=== PATIENT | female | born 1965 | race Caucasian/White ===

== ENCOUNTER 2017-03-10 14:51 | Inpatient (IN) | payer BC ==
[~2017-03-10] VITALS: Ht 170.2 cm; Wt 129.8 kg
[~2017-03-10 14:51] MED LIST: AMLO1TAB97 PO; AMLO5TAB2 PO; ASPI-482 PO; ATOR40TA59 PO; BIOT25006 PO; BUME1TAB PO; CHOL200044 PO; CIPR500T PO; FERR-26 PO; FURO40TA4 PO; GLIM4TAB2 PO; HYDR-2869 PO; IRON150C15 PO; LOSA100T6 PO; METO50TA2 PO; NITR100C6 PO; ONDA4TAB10 SL; POTA20TA4 PO; SIMV40TA3 PO; SITA1TBM7 PO; TRAM50TA PO; TRIA1CAP3 PO
[2017-03-10 15:40] VITALS: BP 188/86
[2017-03-10] MEDS ORDERED: traMADol 50 MG TABLET PO PRN (16:00)
[2017-03-10] MEDS ORDERED: DEXTROSE 50% 25 GM / 50ML DISP.SYRIN. IV PRN (16:00)
--- NOTE | 2017-03-10 16:15 | PDOC2 ---
PAUL MARTIN CPHT 03/10/17 1615: CARDIAC CONSULT DATE OF CONSULT Date of Consult DATE: 03/10/17 TIME: 16:08 REASON FOR CONSULT Reason for Consult: Brittney REFERRING PHYSICIAN Referring Physician: Dr. Colon SOURCE Source: Chart review, Patient HISTORY OF PRESENT ILLNESS HISTORY OF PRESENT ILLNESS This is a 51 yo female, with a h/o uncontrolled hypertension and CKD, who was a direct admit from Dr. Colon's office secondary to significant fluid retention. Patient reports this has been ongoing since the summer; has progressively worsened. Much worse the last couple of weeks. Denies any SOA, orthopnea, dizziness, diaphoresis, chest pain, or nausea/vomiting. Reports compliance with medications. Reports high salt diet recently as father has been in the hospital and she has been grabbing quick meals. Primary copy camera operator is Dr. Kumar with [facility]. Follows closely with Dr. Soto on an outpatient basis. Was previously on Bumex, which was discontinued due to worsening renal function. Presently on metolazone 5mg daily and Lasix 80mg in the am and 40mg in the pm. PAST MEDICAL HISTORY Past Medical History Cardiovascular: HTN, Hyperlipidemia, Diastolic CHF Pulmonary: No pertinent hx CENTRAL NERVOUS SYSTEM: Other (denies) GI: No pertinent hx, Other (obesity) Heme/Onc: Anemia NOS Hepatobiliary: No pertinent hx Psych: No pertinent hx Musculoskeletal: Other (denies) Rheumatologic: No pertinent hx Infectious disease: No pertinent hx ENT: No pertinent hx Renal/: Chronic renal insuff, UTI, Other (menorrhagia s/p hysterectomy - Apr 2015) Endocrine: Diabetes (X 15-16 years) Dermatology: No pertinent hx PAST SURGICAL HISTORY Past Surgical History: Hysterectomy FAMILY HISTORY Family History Coronary Artery Disease, Diabetes, High Cholesterol, Hypertension SOCIAL HISTORY Social History Smoke: No ALCOHOL: none Drugs: None Lives: with Family () ALLERGIES ALLERGIES: Coded Allergies: Penicillins (Verified Allergy, Intermediate, 09/14/16) Sulfa (Sulfonamide Antibiotics) (Verified Allergy, Intermediate, 09/14/16) ROS Review of System 14 point ROS conducted with pertinent positives noted above in HPI. PHYSICAL EXAM PHYSICAL EXAM General: Alert, Oriented X3, Cooperative, No acute distress HEENT: Atraumatic, PERRLA Lungs: Clear to auscultation, Normal air movement Heart: Regular rate, Normal S1, Normal S2, No murmurs, Other (no carotid bruits ) Abdomen: Normal bowel sounds, Soft, No tenderness, Other (truncal obesity) Extremities: Normal pulses, Other anasarca Skin: No rashes Neuro: Normal speech Psych/Mental Status: Mental status NL, Mood NL MUSCULOSKELETAL: No deformity VITALS VITALS Vital Signs Date Time Temp Pulse Resp B/P (MAP) Pulse Ox O2 Delivery O2 Flow Rate FiO2 03/10/17 15:40 97.8 83 20 188/86 (120) 97 Room Air 97.8 ECHOCARDIOGRAM ECHOCARDIOGRAM <Conclusion> Left ventricle systolic function is normal. The Ejection Fraction is 50-55%. There is normal LV segmental wall motion. No significant valvular disease or pulmonary hypertension Normal diastolic function. DATE: 09/14/16 1231 ASSESSMENT/PLAN ASSESSMENT/PLAN 1. Generalized anasarca; recent echo showed LVEF of 50-55% and normal diastolic function 2. Malignant HTN, POA 3. DM, II with diabetic neuropathy 4. CKD 5. Hyperlipidemia Recommendation Check routine labs Obtain CXR Add scheduled hydralazine for BP control Diuresis as per nephrology. Accurate I and O 2Gm Na dietary restriction 1500 cc FR Further recommendation pending labs and other diagnostics Problems: EUNICE NOLAN MD 03/11/17 0918: CARDIAC CONSULT ALLERGIES ALLERGIES: Coded Allergies: Penicillins (Verified Allergy, Intermediate, 09/14/16) Sulfa (Sulfonamide Antibiotics) (Verified Allergy, Intermediate, 09/14/16) ASSESSMENT/PLAN ASSESSMENT/PLAN Patient seen and examined 03/10/17 (late entry). Agree with INFORMATION ASSURANCE MANAGER's assessment and plan. Patient with generalized anasarca and acute on chronic diastolic heart failure Recent 2-D echo showed normal LV systolic function. Consider albumin infusions with diuretics due to hypoalbuminemia. Nephrology following. Titrate oral anti-hypertensives for better blood pressure control. Thank you for your consultation. Problems: PAUL MARTIN APRN Mar 10, 2017 16:15 EUNICE NOLAN MD Mar 11, 2017 09:18
[2017-03-10] MEDS ORDERED: METO-269 PO (16:17)
[2017-03-10] MEDS ORDERED: CLON0.1T PO (16:17)
[2017-03-10] MEDS ORDERED: INSU200I SQ (16:20)
[2017-03-10] MEDS ORDERED: INSU300I SQ (16:20)
--- NOTE | 2017-03-10 16:23 | EKG ---
[facility] [address] [place] [address] Test Date: 2017-03-10 Test Time: 16:17:11 Pat Name: DENNIS EATON Department: Room: 258 1 Gender: F Customer Counter Representative: MELINA : 1965 Requested By: YARELIS FONTENOT Order Number: [id number] Reading MD: Angel Rouse MD Measurements Intervals [place] Rate: 80 P: -36 TN: 154 QRS: -3 QRSD: 88 T: 30 QT: 376 QTc: 437 Interpretive Statements SINUS RHYTHM Electronically Signed On 03-11-2017 16:10:18 TRANSFORMER ASSEMBLER by Angel Rouse MD
[2017-03-10] MEDS: LOSARTAN POTASSIUM 50 MG TABLET. PO SCH (16:30)
[2017-03-10] MEDS: amLODIPine BESYLATE 5 MG TABLET PO SCH (16:30)
[2017-03-10] MEDS: POTASSIUM CHLORIDE 20 MEQ TABLET.ER. PO SCH (16:30)
[2017-03-10 16:32] LABS: BASO # 0.1 x10^3/uL (0.0-0.2); BASO % 1 % (0-3); EOS % 3 % (0-3); HEMATOCRIT 23.5 % (36.0-47.0); HEMOGLOBIN 8.2 g/dL (12.0-15.5); LYMPH # 1.8 x10^3/uL (1.0-4.8); LYMPH % 17 % (24-48); MEAN CORPUSCULAR HEMOGLOBIN 29 pg (25-35); MEAN CORPUSCULAR HGB CONC 35 g/dL (31-37); MEAN CORPUSCULAR VOLUME 84 fL (79-100); MONO % 7 % (0-9); NEUT % 73 % (31-73); PLATELET COUNT 296 x10^3/uL (140-400); RED BLOOD COUNT 2.78 x10^6/uL (3.50-5.40); RED CELL DISTRIBUTION WIDTH 13.5 % (11.5-14.5); WHITE BLOOD COUNT 10.5 x10^3/uL (4.0-11.0)
--- NOTE | 2017-03-10 16:57 | RAD ---
Bilateral lower extremity venous ultrasound, 03/10/2017: History: Leg swelling Duplex evaluation of the deep veins in the lower extremities was performed including grayscale, color-flow and spectral Doppler analysis. The femoral and popliteal veins demonstrate normal compressibility and normal responses to distal augmentation maneuvers. Color imaging of those vessels shows no evidence of intraluminal clot. The visualized deep veins in both calves are patent. Streaky subcutaneous edema is present in both lower legs. IMPRESSION: There is no sonographic evidence of deep vein thrombosis in either lower extremity.
[2017-03-10] MEDS: METOPROLOL SUCC 24HR ER 50 MG TAB.ER.24H. PO SCH (17:00)
[2017-03-10] MEDS ORDERED: IRON POLYSACCHARIDE COMPLEX 150 MG CAPSULE PO SCH (17:00)
[2017-03-10] MEDS: cloNIDine HCL 0.1 MG TABLET PO SCH ×2 (17:06→21:27)
[2017-03-10] MEDS: INSULIN ASPART 300 UNITS/3 ML INSULN.PEN SQ SCH ×2 (17:09→17:14)
[2017-03-10] MEDS ORDERED: FURO80TA3 PO (17:18)
[2017-03-10] MEDS ORDERED: FURO40TA4 PO (17:18)
[2017-03-10] MEDS ORDERED: METO2.5T PO (17:18)
[2017-03-10 17:22] LABS: ALBUMIN 2.8 g/dL (3.4-5.0); ALBUMIN/GLOBULIN RATIO 0.7 (1.0-1.7); CALCIUM 9.2 mg/dL (8.5-10.1); CREATININE 2.6 mg/dL (0.6-1.0); GFR 19.3; POTASSIUM 4.7 mmol/L (3.5-5.1); TOTAL BILIRUBIN 0.6 mg/dL (0.2-1.0)
[2017-03-10] MEDS: FUROSEMIDE 40 MG/4 ML VIAL. IVP SCH (17:22)
[2017-03-10 18:30] LABS: BILIRUBIN,URINE NEGATIVE (NEG); GLUCOSE,URINE 500 mg/dL (NEG); NITRITE,URINE NEGATIVE (NEG); PROTEIN,URINE >=300 mg/dL (NEG-TRACE); UROBILINOGEN,URINE 0.2 mg/dL (0.2 mg/dL)
[2017-03-10 18:42] LABS: BACTERIA,URINE MOD /HPF (0-FEW); RBC,URINE 0 /HPF (0-2); SQUAMOUS EPITHELIAL CELL,UR MOD /LPF
[2017-03-10 19:45] VITALS: BP 163/70
[2017-03-10] MEDS ORDERED: METOPROLOL TART IMMED RELEASE 50 MG TABLET. PO SCH (21:00)
[2017-03-10] MEDS ORDERED: INSULIN DETEMIR 300 UNITS/3 ML INSULN.PEN. SQ SCH ×2 (21:00)
[2017-03-10] MEDS: ATORVASTATIN CALCIUM 40 MG TABLET. PO SCH (21:27)
[2017-03-10] MEDS: INSULIN DETEMIR 300 UNITS/3 ML INSULN.PEN. SQ SCH (21:31)
[2017-03-10 22:50] VITALS: BP 135/62
[2017-03-11 03:15] VITALS: BP 129/61
[2017-03-11 07:00] VITALS: BP 143/58
[2017-03-11 07:24] LABS: BASO % 0 % (0-3); EOS % 4 % (0-3); HEMATOCRIT 22.9 % (36.0-47.0); HEMOGLOBIN 7.8 g/dL (12.0-15.5); LYMPH # 1.8 x10^3/uL (1.0-4.8); LYMPH % 19 % (24-48); MEAN CORPUSCULAR HEMOGLOBIN 29 pg (25-35); MEAN CORPUSCULAR HGB CONC 34 g/dL (31-37); MEAN CORPUSCULAR VOLUME 85 fL (79-100); MONO % 7 % (0-9); NEUT % 70 % (31-73); PLATELET COUNT 270 x10^3/uL (140-400); RED BLOOD COUNT 2.69 x10^6/uL (3.50-5.40); RED CELL DISTRIBUTION WIDTH 13.4 % (11.5-14.5); WHITE BLOOD COUNT 9.3 x10^3/uL (4.0-11.0)
[2017-03-11 07:32] LABS: CALCIUM 8.9 mg/dL (8.5-10.1); CREATININE 2.5 mg/dL (0.6-1.0); GFR 20.2; POTASSIUM 4.8 mmol/L (3.5-5.1)
[2017-03-11 07:36] LABS: CHOLESTEROL/HDL RATIO 4.9
[2017-03-11] MEDS ORDERED: FERROUS SULFATE 325 MG TABLET. PO SCH (08:00)
--- NOTE | 2017-03-11 08:01 | RAD ---
Chest radiograph Two Views 03/10/2017 Clinical indication: CHF, shortness of breath Comparison: Chest 09/13/2016 Findings: Enlargement of the cardiac silhouette with mild pulmonary venous congestion. There is blunting of the left costophrenic angle. No pneumothorax or focal consolidation Impression: 1. Findings suggestive of mild CHF with cardiomegaly and mild pulmonary venous congestion. 2. Blunting of the left costophrenic angle which may be due to pleural thickening or trace pleural fluid.
[2017-03-11] MEDS ORDERED: BIOTIN 2500 MCG PO SCH (09:00)
[2017-03-11] MEDS: amLODIPine BESYLATE 5 MG TABLET PO SCH (09:11)
[2017-03-11] MEDS: METOPROLOL SUCC 24HR ER 50 MG TAB.ER.24H. PO SCH (09:11)
[2017-03-11] MEDS: CHOLECALCIFEROL (VITAMIN D3) 1,000 UNIT TABLET PO SCH (09:12)
[2017-03-11] MEDS: FERROUS SULFATE 325 MG TABLET. PO SCH (09:12)
[2017-03-11] MEDS: cloNIDine HCL 0.1 MG TABLET PO SCH ×3 (09:12→20:24)
[2017-03-11] MEDS: LOSARTAN POTASSIUM 50 MG TABLET. PO SCH (09:12)
[2017-03-11] MEDS: POTASSIUM CHLORIDE 20 MEQ TABLET.ER. PO SCH (09:12)
[2017-03-11] MEDS: FUROSEMIDE 40 MG/4 ML VIAL. IVP SCH ×2 (09:13→14:23)
[2017-03-11] MEDS: INSULIN ASPART 300 UNITS/3 ML INSULN.PEN SQ SCH ×6 (09:20→18:07)
--- NOTE | 2017-03-11 09:56 | PDOC ---
Provider Note Provider Note Pt seen.H&P dictated. #[id number] YARELIS FONTENOT MD Mar 11, 2017 09:56
[2017-03-11] MEDS ORDERED: IRON SUCROSE COMPLEX 200 MG in IV NORMAL SALINE 100ML 100 ML IV ONE (10:00)
[2017-03-11 10:17] LABS: % SAT IRON 25 % (15-34); IRON,SERUM 53 ug/dL (50-170)
--- NOTE | 2017-03-11 10:27 | HP ---
ADMIT DATE: 03/10/2017 PATIENT LOCATION: 258. REASON FOR ADMISSION TO THE HOSPITAL: Anasarca, shortness of breath and swelling in the lower extremities. HISTORY OF PRESENT ILLNESS: The patient is a 51-year-old female, patient known to me. She has a history of diabetes and nephrotic syndrome. She was admitted to the hospital 6 months ago. At that time, she had a complete workup, including ultrasound of the kidneys, echocardiogram and she also has iron-deficiency anemia. She was doing relatively well and she has noticed swelling in lower extremities, gained 20 pounds. She was short of breath and was admitted to the hospital for aggressive diuresis. PAST MEDICAL HISTORY: She has history of diabetes mellitus type 2, hypertension, hyperlipidemia and diastolic heart failure. Echo shows a good left ventricular function. PAST SURGICAL HISTORY: She had a heavy menstrual in the past and had hysterectomy within last 1 year. ALLERGIES: PENICILLIN AND SULFA, MODERATE REACTION WITH HIVES. SOCIAL HISTORY: No history of smoking, alcohol or drug abuse. FAMILY HISTORY: Positive for diabetes and heart disease in the father. REVIEW OF SYMPTOMS: Complains of shortness of breath, weight gain, swelling of the lower extremities and short of breath. MEDICATIONS: Amlodipine 5 mg daily, atorvastatin 40 mg daily, vitamin D 2000 daily, clonidine 0.1 three times daily, iron 325 daily, losartan 100 mg daily, metoprolol 50 mg daily and potassium 20 mEq daily. She was on Lasix 40 mg 3 a day, Zofran for nausea and she was recommended Zaroxolyn, but she has not started yet, problems with insurance, she could not get her medications. Sugars were high and she was started on insulin recently. PHYSICAL EXAMINATION: HEENT: On examination, head is atraumatic. Pupils are equal. Oral cavity, no congestion. NECK: Supple. Thyroid not enlarged. JVD slightly elevated. CHEST: Symmetrical. CARDIOVASCULAR: S1, S2. No murmurs. LUNGS: Few crackles at one-third at the bases. ABDOMEN: Soft, obese. No mass palpable. EXTERNAL GENITALIA: No Martinez. RECTAL: Deferred. EXTREMITIES: With 2-3+ edema all the way from the ankles up to the thighs. NEUROLOGICAL EXAMINATION: Cranial nerves intact. Power 5/5 in all extremities. LABORATORY DATA: Shows a white count of 10, hemoglobin 8.2 and platelets 296,000. Electrolytes show sodium 137, potassium 4.7, chloride 104, bicarb 22, BUN 39, creatinine 2.6 and glucose 329. LFTs were normal. TSH 1.5. Cholesterol 191, LDL 123, HDL 39. Urine shows protein 300, glucose 500, negative nitrites and esterase and 1-4 wbcs. Chest x-ray shows mild CHF. Doppler of lower extremities negative for DVT. FINAL IMPRESSION: 1. Anasarca. 2. Nephrotic syndrome. 3. Diastolic heart failure. 4. Anemia of chronic disease. 5. Chronic kidney disease stage 4. 6. Type 2 diabetes, requiring insulin now. 7. Hypertension. 8. Hyperlipidemia. PLAN: Plan at this time was admit to the hospital, aggressive dialysis with IV Lasix. Nephrology consult, also Cardiology will see, may be an echo to see how the cardiac function is doing and also IV infusion iron and see how she does. DVT prevention with SCDs. YARELIS FONTENOT MD DR: DAGOBERTO/jamel JOB#: [id number] / [id number]
[2017-03-11 11:00] VITALS: BP 167/77
--- NOTE | 2017-03-11 11:27 | PDOC2 ---
CONSULT Date of Consult Date of Consult DATE: 03/11/17 TIME: 11:20 Reason for Consult Reason for Consult: RENAL FAILURE Referring Physician Referring Physician: CORIE Identification/Chief Complaint Chief Complaint SOB AND LE SWELLING AND WT GAIN Problems: Source Source: Chart review, Patient History of Present Illness Reason for Visit: THIS IS A 51 YR OLD HERE WITH WT GAIN AND LE EDEMA AND SOB. NOTED TO HAVE CHF/ PULMONARY VASCULAR CONGESTION. PER PT ABOUT A 20LB WEIGHT GAIN SINCE LAST MONTH. SHE WAS ON BUMEX AND LASIX AND WAS ASKED TO STOP HER BUMEX. LATER ZAROXOLYN WAS ADDED BUT THIS IS NOT EASILY COVERED BY HER INSURANCE. HX NOTABLE FOR CKD STAGE 2 WITH A CR OF ABOUT 2.5. SHE HAD SEVERE NEPHROTIC SYNDROME IN AUGUST THIS YEAR WITH ABOUT 9.5 GM OF PROTEIN/24 HR. LAST MONTH THIS HAD IMPROVED TO 2.5GM/DAY AFTER SHE WAS STARTED ON LOSARTAN. CKD DUE TO DM II AND HTN. SHE IS ALSO NOTED TO HAVE ANEMIA WITH A HGB OF 7.8 Past Medical History Cardiovascular: HTN, Hyperlipidemia Pulmonary: No pertinent hx CENTRAL NERVOUS SYSTEM: Other GI: No pertinent hx, Other Heme/Onc: Anemia NOS Hepatobiliary: No pertinent hx Psych: No pertinent hx Musculoskeletal: Other Rheumatologic: No pertinent hx Infectious disease: No pertinent hx Renal/: Chronic renal insuff, UTI, Other Endocrine: Diabetes Past Surgical History Past Surgical History: Hysterectomy Family History Family History: Coronary Artery Disease, Diabetes, High Cholestrol, Hypertension Social History ALCOHOL: none Drugs: None Lives: with Family Current Medications Current Medications Current Medications Insulin Aspart (NovoLOG) 0-7 UNITS TIDWMEALS SQ Last administered on 09:21; Start 03/10/17 at 17:00 Dextrose (Dextrose 50%-Water Syringe) 12.5 gm PRN Q15MIN PRN IV SEE COMMENTS; Start 03/10/17 at 16:00 Furosemide (Lasix) 40 mg BID92 IVP Last administered on 03/11/17 09:13; Start 03/10/17 at 16:00 Amlodipine Besylate (Norvasc) 5 mg DAILY PO Last administered on 03/11/17 09: 11; Start 03/10/17 at 16:30 Atorvastatin Calcium (Lipitor) 40 mg QHS PO Last administered on 03/10/17 21: 27; Start 03/10/17 at 21:00 Ferrous Sulfate (Feosol) 325 mg DAILYWBKFT PO ; Start 03/11/17 at 08:00; Status UNV Hydralazine HCl (Apresoline) 50 mg BID PO Last administered on 03/11/17 09:12 ; Start 03/10/17 at 21:00 Polysaccharide Iron Complex (Niferex 150) 150 mg BIDWMEALS PO ; Start 03/10/17 at 17:00; Stop 03/10/17 at 17:20; Status DC Metoprolol Tartrate (Lopressor) 50 mg BID PO ; Start 03/10/17 at 21:00; Status Cancel Potassium Chloride (Klor-Con) 20 meq DAILYWBKFT PO Last administered on 09:12; Start 03/10/17 at 16:30 Tramadol HCl (Ultram) 50 mg PRN Q4HRS PRN PO PAIN; Start 03/10/17 at 16:00 Non-Formulary Medication 2,500 mcg DAILY PO ; Start 03/11/17 at 09:00; Status UNV Vitamin D (Vitamin D3) 2,000 unit DAILY PO Last administered on 03/11/17 09: 12; Start 03/11/17 at 09:00 Losartan Potassium (Cozaar) 100 mg DAILY PO Last administered on 03/11/17 09: 12; Start 03/10/17 at 16:30 Insulin Aspart (NovoLOG) 10 units TIDAC SQ Last administered on 03/11/17 09: 20; Start 03/10/17 at 16:30 Insulin Detemir (Levemir) 10 units QHS SQ ; Start 03/10/17 at 21:00; Stop at 21:00; Status DC Clonidine HCl (Catapres) 0.1 mg TID PO Last administered on 03/11/17 09:12; Start 03/10/17 at 17:00 Metoprolol Succinate (Toprol Xl) 50 mg DAILY PO Last administered on 09:11; Start 03/10/17 at 17:00 Ferrous Sulfate (Feosol) 325 mg DAILYWBKFT PO Last administered on 03/11/17 09:12; Start 03/11/17 at 08:00 Insulin Detemir (Levemir) 20 units QHS SQ ; Start 03/10/17 at 21:00; Stop at 21:00; Status DC Insulin Detemir (Levemir) 10 units QHS SQ Last administered on 03/10/17t 21:31 ; Start 03/10/17 at 21:00 Iron Sucrose 200 mg/Sodium Chloride 110 ml @ 55 mls/hr 1X ONCE IV ; Start at 10:00; Stop 03/11/17 at 10:07; Status DC Iron Sucrose 200 mg/Sodium Chloride 110 ml @ 55 mls/hr 1X ONCE IV ; Start at 10:00; Stop 03/12/17 at 10:00; Status DC Darbepoetin Aman (Aranesp) 100 mcg 1X ONCE SQ ; Start 03/11/17 at 21:00; Stop 03/11/17 at 21:01 Iron Sucrose 200 mg/Miscellaneous 10 ml @ 20 mls/hr Q24H IV ; Start 03/11/17 at 10:00; Stop 03/12/17 at 10:29 Active Scripts Active Klor-Con M20 (Potassium Chloride) 20 Meq Tab.er.prt 20 Meq PO DAILYWBKFT 30 Days Reported Furosemide 40 Mg Tablet 1 Tab PO DAILYWSUP Furosemide 80 Mg Tablet 1 Tab PO DAILYWBKFT Metolazone 2.5 Mg Tablet 5 Mg PO DAILY Humalog Kwikpen (Insulin Lispro) 200 Unit/1 Ml Insuln.pen 20 Unit SQ TIDACHC Toujeo Solostar (Insulin Glargine,Hum.rec.anlog) 300 Unit/1 Ml Insuln.pen 20 Unit SQ HS Clonidine Hcl 0.1 Mg Tablet 1 Tab PO TID Toprol Xl (Metoprolol Succinate) 50 Mg Tab.er.24h 1 Tab PO DAILY Ferrous Sulfate 325 Mg Tablet 1 Tab PO DAILY Amlodipine Besylate 5 Mg Tablet 5 Mg PO DAILY Atorvastatin Calcium 40 Mg Tablet 1 Tab PO DAILY Losartan Potassium 100 Mg Tablet 100 Mg PO DAILY Zofran Odt (Ondansetron) 4 Mg Tab.rapdis 1 Tab SL PRN Q8HRS PRN D3-2000 (Cholecalciferol (Vitamin D3)) 2,000 Unit Capsule 2,000 Unit PO DAILY Allergies Allergies: Coded Allergies: Penicillins (Verified Allergy, Intermediate, 09/14/16) Sulfa (Sulfonamide Antibiotics) (Verified Allergy, Intermediate, 09/14/16) ROS General: YES: Fatigue, Malaise, Appetite PSYCHOLOGICAL ROS: YES: Anxiety, Depression Eyes: Yes Decreased vision HEENT: YES: Heacaches, Nasal congestion ALLERGY AND IMMUNOLOGY: YES: Seasonal Allergies Respiratory: YES: Cough, Orthopnea, Shortness of breath Cardiovascular: yes Orthopnea, yes Edema Gastrointestinal: Yes Constipation Genitourinary: YES Frequency Musculoskeletal: Yes Muscular Weakness Neurological: Yes Weakness Skin: Yes Dry Skin Physical Exam General: Alert, Oriented X3, Cooperative, No acute distress HEENT: Atraumatic, PERRLA, EOMI, Mucous membr. moist/pink Lungs: Other (BASILAR RALES) Heart: Regular rate, Normal S1, Normal S2 Abdomen: Normal bowel sounds, Soft, No tenderness Extremities: No clubbing, Other (3+ EDEMA) Skin: No rashes, No breakdown, No significant lesion Neuro: Normal speech, Cranial nerves 3-12 NL Psych/Mental Status: Mental status NL, Mood NL MUSCULOSKELETAL: No joint tenderness, No deformity Vitals VITALS Vital Signs Date Time Temp Pulse Resp B/P (MAP) Pulse Ox O2 Delivery O2 Flow Rate FiO2 03/11/17 09:12 74 162/73 03/11/17 07:00 97.8 18 96 Room Air 97.8 Labs Labs Laboratory Tests Test 03/10/17 15:25 03/10/17 16:42 03/10/17 18:15 03/10/17 21:25 White Blood Count 10.5 x10^3/uL (4.0-11.0) Red Blood Count 2.78 x10^6/uL (3.50-5.40) Hemoglobin 8.2 g/dL (12.0-15.5) Hematocrit 23.5 % (36.0-47.0) Mean Corpuscular Volume 84 fL (79-100) Mean Corpuscular Hemoglobin 29 pg (25-35) Mean Corpuscular Hemoglobin Concent 35 g/dL (31-37) Red Cell Distribution Width 13.5 % (11.5-14.5) Platelet Count 296 x10^3/uL (140-400) Neutrophils (%) (Auto) 73 % (31-73) Lymphocytes (%) (Auto) 17 % (24-48) Monocytes (%) (Auto) 7 % (0-9) Eosinophils (%) (Auto) 3 % (0-3) Basophils (%) (Auto) 1 % (0-3) Neutrophils # (Auto) 7.6 x10^3uL (1.8-7.7) Lymphocytes # (Auto) 1.8 x10^3/uL (1.0-4.8) Monocytes # (Auto) 0.7 x10^3/uL (0.0-1.1) Eosinophils # (Auto) 0.3 x10^3/uL (0.0-0.7) Basophils # (Auto) 0.1 x10^3/uL (0.0-0.2) Sodium Level 137 mmol/L (136-145) Potassium Level 4.7 mmol/L (3.5-5.1) Chloride Level 104 mmol/L (98-107) Carbon Dioxide Level 22 mmol/L (21-32) Anion Gap 11 (6-14) Blood Urea Nitrogen 39 mg/dL (7-20) Creatinine 2.6 mg/dL (0.6-1.0) Estimated GFR (Cockcroft-Gault) 19.3 BUN/Creatinine Ratio 15 (6-20) Glucose Level 329 mg/dL (70-99) Calcium Level 9.2 mg/dL (8.5-10.1) Total Bilirubin 0.6 mg/dL (0.2-1.0) Aspartate Amino Transf (AST/SGOT) 8 U/L (15-37) Alanine Aminotransferase (ALT/SGPT) 11 U/L (14-59) Alkaline Phosphatase 136 U/L (46-116) Total Protein 7.0 g/dL (6.4-8.2) Albumin 2.8 g/dL (3.4-5.0) Albumin/Globulin Ratio 0.7 (1.0-1.7) Thyroid Stimulating Hormone (TSH) 1.535 uIU/mL (0.358-3.74) Glucose (Fingerstick) 307 mg/dL (70-99) 228 mg/dL (70-99) Urine Collection Type Unknown Urine Color Straw Urine Clarity Clear Urine pH 6.0 Urine Specific [place] 1.015 Urine Protein >=300 mg/dL (NEG-TRACE) Urine Glucose (UA) 500 mg/dL (NEG) Urine Ketones (Stick) Negative mg/dL (NEG) Urine Blood Small (NEG) Urine Nitrite Negative (NEG) Urine Bilirubin Negative (NEG) Urine Urobilinogen Dipstick 0.2 mg/dL (0.2 mg/dL) Urine Leukocyte Esterase Negative (NEG) Urine RBC 0 /HPF (0-2) Urine WBC 1-4 /HPF (0-4) Urine Squamous Epithelial Cells Mod /LPF Urine Bacteria Mod /HPF (0-FEW) Test 03/11/17 06:50 03/11/17 07:33 White Blood Count 9.3 x10^3/uL (4.0-11.0) Red Blood Count 2.69 x10^6/uL (3.50-5.40) Hemoglobin 7.8 g/dL (12.0-15.5) Hematocrit 22.9 % (36.0-47.0) Mean Corpuscular Volume 85 fL (79-100) Mean Corpuscular Hemoglobin 29 pg (25-35) Mean Corpuscular Hemoglobin Concent 34 g/dL (31-37) Red Cell Distribution Width 13.4 % (11.5-14.5) Platelet Count 270 x10^3/uL (140-400) Neutrophils (%) (Auto) 70 % (31-73) Lymphocytes (%) (Auto) 19 % (24-48) Monocytes (%) (Auto) 7 % (0-9) Eosinophils (%) (Auto) 4 % (0-3) Basophils (%) (Auto) 0 % (0-3) Neutrophils # (Auto) 6.5 x10^3uL (1.8-7.7) Lymphocytes # (Auto) 1.8 x10^3/uL (1.0-4.8) Monocytes # (Auto) 0.6 x10^3/uL (0.0-1.1) Eosinophils # (Auto) 0.3 x10^3/uL (0.0-0.7) Basophils # (Auto) 0.0 x10^3/uL (0.0-0.2) Reticulocyte Count (auto) 2.8 % (0.5-2.5) Sodium Level 139 mmol/L (136-145) Potassium Level 4.8 mmol/L (3.5-5.1) Chloride Level 106 mmol/L (98-107) Carbon Dioxide Level 23 mmol/L (21-32) Anion Gap 10 (6-14) Blood Urea Nitrogen 41 mg/dL (7-20) Creatinine 2.5 mg/dL (0.6-1.0) Estimated GFR (Cockcroft-Gault) 20.2 Glucose Level 206 mg/dL (70-99) Calcium Level 8.9 mg/dL (8.5-10.1) Magnesium Level 2.0 mg/dL (1.8-2.4) Iron Level 53 ug/dL (50-170) Total Iron Binding Capacity 208 ug/dL (250-450) Iron Saturation 25 % (15-34) Ferritin 206 ng/mL (8-252) Triglycerides Level 147 mg/dL (0-150) Cholesterol Level 191 mg/dL (0-200) LDL Cholesterol, Calculated 123 mg/dL (0-100) VLDL Cholesterol, Calculated 29 mg/dL (0-40) Non-HDL Cholesterol Calculated 152 mg/dL (0-129) HDL Cholesterol 39 mg/dL (40-60) Cholesterol/HDL Ratio 4.9 Glucose (Fingerstick) 193 mg/dL (70-99) Laboratory Tests Test 03/10/17 15:25 03/10/17 16:42 03/10/17 18:15 03/10/17 21:25 White Blood Count 10.5 x10^3/uL (4.0-11.0) Red Blood Count 2.78 x10^6/uL (3.50-5.40) Hemoglobin 8.2 g/dL (12.0-15.5) Hematocrit 23.5 % (36.0-47.0) Mean Corpuscular Volume 84 fL (79-100) Mean Corpuscular Hemoglobin 29 pg (25-35) Mean Corpuscular Hemoglobin Concent 35 g/dL (31-37) Red Cell Distribution Width 13.5 % (11.5-14.5) Platelet Count 296 x10^3/uL (140-400) Neutrophils (%) (Auto) 73 % (31-73) Lymphocytes (%) (Auto) 17 % (24-48) Monocytes (%) (Auto) 7 % (0-9) Eosinophils (%) (Auto) 3 % (0-3) Basophils (%) (Auto) 1 % (0-3) Neutrophils # (Auto) 7.6 x10^3uL (1.8-7.7) Lymphocytes # (Auto) 1.8 x10^3/uL (1.0-4.8) Monocytes # (Auto) 0.7 x10^3/uL (0.0-1.1) Eosinophils # (Auto) 0.3 x10^3/uL (0.0-0.7) Basophils # (Auto) 0.1 x10^3/uL (0.0-0.2) Sodium Level 137 mmol/L (136-145) Potassium Level 4.7 mmol/L (3.5-5.1) Chloride Level 104 mmol/L (98-107) Carbon Dioxide Level 22 mmol/L (21-32) Anion Gap 11 (6-14) Blood Urea Nitrogen 39 mg/dL (7-20) Creatinine 2.6 mg/dL (0.6-1.0) Estimated GFR (Cockcroft-Gault) 19.3 BUN/Creatinine Ratio 15 (6-20) Glucose Level 329 mg/dL (70-99) Calcium Level 9.2 mg/dL (8.5-10.1) Total Bilirubin 0.6 mg/dL (0.2-1.0) Aspartate Amino Transf (AST/SGOT) 8 U/L (15-37) Alanine Aminotransferase (ALT/SGPT) 11 U/L (14-59) Alkaline Phosphatase 136 U/L (46-116) Total Protein 7.0 g/dL (6.4-8.2) Albumin 2.8 g/dL (3.4-5.0) Albumin/Globulin Ratio 0.7 (1.0-1.7) Thyroid Stimulating Hormone (TSH) 1.535 uIU/mL (0.358-3.74) Glucose (Fingerstick) 307 mg/dL (70-99) 228 mg/dL (70-99) Urine Collection Type Unknown Urine Color Straw Urine Clarity Clear Urine pH 6.0 Urine Specific [place] 1.015 Urine Protein >=300 mg/dL (NEG-TRACE) Urine Glucose (UA) 500 mg/dL (NEG) Urine Ketones (Stick) Negative mg/dL (NEG) Urine Blood Small (NEG) Urine Nitrite Negative (NEG) Urine Bilirubin Negative (NEG) Urine Urobilinogen Dipstick 0.2 mg/dL (0.2 mg/dL) Urine Leukocyte Esterase Negative (NEG) Urine RBC 0 /HPF (0-2) Urine WBC 1-4 /HPF (0-4) Urine Squamous Epithelial Cells Mod /LPF Urine Bacteria Mod /HPF (0-FEW) Test 03/11/17 06:50 03/11/17 07:33 White Blood Count 9.3 x10^3/uL (4.0-11.0) Red Blood Count 2.69 x10^6/uL (3.50-5.40) Hemoglobin 7.8 g/dL (12.0-15.5) Hematocrit 22.9 % (36.0-47.0) Mean Corpuscular Volume 85 fL (79-100) Mean Corpuscular Hemoglobin 29 pg (25-35) Mean Corpuscular Hemoglobin Concent 34 g/dL (31-37) Red Cell Distribution Width 13.4 % (11.5-14.5) Platelet Count 270 x10^3/uL (140-400) Neutrophils (%) (Auto) 70 % (31-73) Lymphocytes (%) (Auto) 19 % (24-48) Monocytes (%) (Auto) 7 % (0-9) Eosinophils (%) (Auto) 4 % (0-3) Basophils (%) (Auto) 0 % (0-3) Neutrophils # (Auto) 6.5 x10^3uL (1.8-7.7) Lymphocytes # (Auto) 1.8 x10^3/uL (1.0-4.8) Monocytes # (Auto) 0.6 x10^3/uL (0.0-1.1) Eosinophils # (Auto) 0.3 x10^3/uL (0.0-0.7) Basophils # (Auto) 0.0 x10^3/uL (0.0-0.2) Reticulocyte Count (auto) 2.8 % (0.5-2.5) Sodium Level 139 mmol/L (136-145) Potassium Level 4.8 mmol/L (3.5-5.1) Chloride Level 106 mmol/L (98-107) Carbon Dioxide Level 23 mmol/L (21-32) Anion Gap 10 (6-14) Blood Urea Nitrogen 41 mg/dL (7-20) Creatinine 2.5 mg/dL (0.6-1.0) Estimated GFR (Cockcroft-Gault) 20.2 Glucose Level 206 mg/dL (70-99) Calcium Level 8.9 mg/dL (8.5-10.1) Magnesium Level 2.0 mg/dL (1.8-2.4) Iron Level 53 ug/dL (50-170) Total Iron Binding Capacity 208 ug/dL (250-450) Iron Saturation 25 % (15-34) Ferritin 206 ng/mL (8-252) Triglycerides Level 147 mg/dL (0-150) Cholesterol Level 191 mg/dL (0-200) LDL Cholesterol, Calculated 123 mg/dL (0-100) VLDL Cholesterol, Calculated 29 mg/dL (0-40) Non-HDL Cholesterol Calculated 152 mg/dL (0-129) HDL Cholesterol 39 mg/dL (40-60) Cholesterol/HDL Ratio 4.9 Glucose (Fingerstick) 193 mg/dL (70-99) Assessment/Plan Assessment/Plan IMP CKD - PROB STAGE 3 PROTEINURIA-IMPROVED EDEMA/ANASARCA ACUTE DIASTOLIC CHF PULMONARY VASCULAR CONGESTION ANEMIA OF CKD DM II HTN PLAN LOOP DIURETIC DEMADEX ADD ZAROXOLYN 24 HR URINE STUDY CHECK IRON STORES START IRON AND ARANESP CHECK PO4 CONT LOSARTAN CECI PICHARDO MD Mar 11, 2017 11:26
[2017-03-11] MEDS: metOLazone 2.5 MG TABLET PO SCH (12:50)
[2017-03-11] MEDS: TORSEMIDE 20 MG TABLET. PO SCH (12:50)
[2017-03-11] MEDS: IRON SUCROSE COMPLEX 200 MG in TOTAL VOLUME SYRINGE 0 ML IV SCH (14:23)
[2017-03-11 15:00] VITALS: BP 145/67
--- NOTE | 2017-03-11 15:55 | PDOC ---
CARDIO Progress Notes Date and Time Date of Service 03/11/2017 Time of Evaluation 1520 Subjective Subjective: No Chest Pain, No shortness of breath, No Palpitations, Other ( feels better today; denies orthopena or PND) Vitals Vitals Vital Signs Date Time Temp Pulse Resp B/P (MAP) Pulse Ox O2 Delivery O2 Flow Rate FiO2 03/11/17 14:25 72 140/64 03/11/17 11:00 97.8 18 94 Room Air 97.8 Weight Weight [ ] Input and Output Intake and Output Intake and Output 03/11/17 07:00 Intake Total 900 ml Output Total 950 ml Balance -50 ml Intake Oral 900 ml Output Urine Total 950 ml Laboratory Labs Laboratory Tests Test 03/10/17 16:42 03/10/17 18:15 03/10/17 21:25 03/11/17 06:50 Glucose (Fingerstick) 307 mg/dL (70-99) 228 mg/dL (70-99) Urine Collection Type Unknown Urine Color Straw Urine Clarity Clear Urine pH 6.0 Urine Specific [place] 1.015 Urine Protein >=300 mg/dL (NEG-TRACE) Urine Glucose (UA) 500 mg/dL (NEG) Urine Ketones (Stick) Negative mg/dL (NEG) Urine Blood Small (NEG) Urine Nitrite Negative (NEG) Urine Bilirubin Negative (NEG) Urine Urobilinogen Dipstick 0.2 mg/dL (0.2 mg/dL) Urine Leukocyte Esterase Negative (NEG) Urine RBC 0 /HPF (0-2) Urine WBC 1-4 /HPF (0-4) Urine Squamous Epithelial Cells Mod /LPF Urine Bacteria Mod /HPF (0-FEW) White Blood Count 9.3 x10^3/uL (4.0-11.0) Red Blood Count 2.69 x10^6/uL (3.50-5.40) Hemoglobin 7.8 g/dL (12.0-15.5) Hematocrit 22.9 % (36.0-47.0) Mean Corpuscular Volume 85 fL (79-100) Mean Corpuscular Hemoglobin 29 pg (25-35) Mean Corpuscular Hemoglobin Concent 34 g/dL (31-37) Red Cell Distribution Width 13.4 % (11.5-14.5) Platelet Count 270 x10^3/uL (140-400) Neutrophils (%) (Auto) 70 % (31-73) Lymphocytes (%) (Auto) 19 % (24-48) Monocytes (%) (Auto) 7 % (0-9) Eosinophils (%) (Auto) 4 % (0-3) Basophils (%) (Auto) 0 % (0-3) Neutrophils # (Auto) 6.5 x10^3uL (1.8-7.7) Lymphocytes # (Auto) 1.8 x10^3/uL (1.0-4.8) Monocytes # (Auto) 0.6 x10^3/uL (0.0-1.1) Eosinophils # (Auto) 0.3 x10^3/uL (0.0-0.7) Basophils # (Auto) 0.0 x10^3/uL (0.0-0.2) Reticulocyte Count (auto) 2.8 % (0.5-2.5) Sodium Level 139 mmol/L (136-145) Potassium Level 4.8 mmol/L (3.5-5.1) Chloride Level 106 mmol/L (98-107) Carbon Dioxide Level 23 mmol/L (21-32) Anion Gap 10 (6-14) Blood Urea Nitrogen 41 mg/dL (7-20) Creatinine 2.5 mg/dL (0.6-1.0) Estimated GFR (Cockcroft-Gault) 20.2 Glucose Level 206 mg/dL (70-99) Calcium Level 8.9 mg/dL (8.5-10.1) Magnesium Level 2.0 mg/dL (1.8-2.4) Iron Level 53 ug/dL (50-170) Total Iron Binding Capacity 208 ug/dL (250-450) Iron Saturation 25 % (15-34) Ferritin 206 ng/mL (8-252) Triglycerides Level 147 mg/dL (0-150) Cholesterol Level 191 mg/dL (0-200) LDL Cholesterol, Calculated 123 mg/dL (0-100) VLDL Cholesterol, Calculated 29 mg/dL (0-40) Non-HDL Cholesterol Calculated 152 mg/dL (0-129) HDL Cholesterol 39 mg/dL (40-60) Cholesterol/HDL Ratio 4.9 Test 03/11/17 07:33 03/11/17 11:14 Glucose (Fingerstick) 193 mg/dL (70-99) 220 mg/dL (70-99) Physical Exam HEENT: Neck Supple W Full Motion Chest: Symmetric LUNGS: Other (faint basilar crackles) Heart: S1S2, RRR (SR) Abdomen: Soft N/T, Other (anasarca) Extremities: No Calf Tenderness, Other (3+ bilateral LE pitting edema) Neurology: alert, oriented, follow commands Assessment Assessment 1. Generalized anasarca; recent echo showed LVEF of 50-55% and normal diastolic function 2. Malignant HTN, remains labile 3. DM, II with diabetic neuropathy 4. CKD 5. Hyperlipidemia 6. Acute on chronic diastolic CHF: cor pulmonale? Presently appears compensated Recommendation 1. Reinforced Na restriction, wt loss. 2. Will likely need STEPHEN w/u as an outpt 3. Unable to provide PA pressure from last TTE. Would consider for RHC for accurate measurements if none has been performed. 4. titrate up meds and add imdur. INR 5. Defer diuretic to nephrology JOVANY ALEXIS APRN Mar 11, 2017 15:55
[2017-03-11 16:46] LABS: PROTHROMBIN TIME PATIENT 12.8 SEC (11.7-14.0)
[2017-03-11] MEDS: ISOSORBIDE MONONITRATE ER 30 MG TAB.ER.24H PO SCH (17:54)
[2017-03-11 19:30] VITALS: BP 137/70
[2017-03-11] MEDS: ATORVASTATIN CALCIUM 40 MG TABLET. PO SCH (20:23)
[2017-03-11] MEDS: INSULIN DETEMIR 300 UNITS/3 ML INSULN.PEN. SQ SCH (20:32)
[2017-03-11] MEDS ORDERED: DARBEPOETIN ALFA 100 MCG/0.5 ML DISP.SYRIN. SQ ONE (21:00)
[2017-03-11 23:20] VITALS: BP 116/57
[2017-03-12 03:25] VITALS: BP 151/87
[2017-03-12 05:42] LABS: BASO # 0.1 x10^3/uL (0.0-0.2); BASO % 1 % (0-3); EOS % 4 % (0-3); HEMATOCRIT 21.4 % (36.0-47.0); HEMOGLOBIN 7.3 g/dL (12.0-15.5); LYMPH # 1.5 x10^3/uL (1.0-4.8); LYMPH % 16 % (24-48); MEAN CORPUSCULAR HEMOGLOBIN 29 pg (25-35); MEAN CORPUSCULAR HGB CONC 34 g/dL (31-37); MEAN CORPUSCULAR VOLUME 85 fL (79-100); MONO % 8 % (0-9); NEUT % 73 % (31-73); PLATELET COUNT 261 x10^3/uL (140-400); RED BLOOD COUNT 2.54 x10^6/uL (3.50-5.40); RED CELL DISTRIBUTION WIDTH 13.4 % (11.5-14.5); WHITE BLOOD COUNT 9.6 x10^3/uL (4.0-11.0)
[2017-03-12 06:14] LABS: CALCIUM 8.9 mg/dL (8.5-10.1); CREATININE 2.6 mg/dL (0.6-1.0); GFR 19.3; POTASSIUM 4.5 mmol/L (3.5-5.1)
[2017-03-12 06:15] LABS: MAGNESIUM 2.1 mg/dL (1.8-2.4); PHOSPHORUS 4.9 mg/dL (2.6-4.7)
[2017-03-12 07:00] VITALS: BP 137/66
[2017-03-12] MEDS: TORSEMIDE 20 MG TABLET. PO SCH (08:59)
[2017-03-12] MEDS: cloNIDine HCL 0.1 MG TABLET PO SCH ×2 (08:59→15:24)
[2017-03-12] MEDS: POTASSIUM CHLORIDE 20 MEQ TABLET.ER. PO SCH (09:00)
[2017-03-12] MEDS: CHOLECALCIFEROL (VITAMIN D3) 1,000 UNIT TABLET PO SCH (09:00)
[2017-03-12] MEDS: ISOSORBIDE MONONITRATE ER 30 MG TAB.ER.24H PO SCH (09:03)
[2017-03-12] MEDS: METOPROLOL SUCC 24HR ER 50 MG TAB.ER.24H. PO SCH (09:03)
[2017-03-12] MEDS: metOLazone 2.5 MG TABLET PO SCH (09:04)
[2017-03-12] MEDS: FERROUS SULFATE 325 MG TABLET. PO SCH (09:04)
[2017-03-12] MEDS: LOSARTAN POTASSIUM 50 MG TABLET. PO SCH (09:04)
[2017-03-12] MEDS: FUROSEMIDE 40 MG/4 ML VIAL. IVP SCH ×2 (09:05→15:22)
[2017-03-12] MEDS: INSULIN ASPART 300 UNITS/3 ML INSULN.PEN SQ SCH ×4 (09:17→13:07)
[2017-03-12] MEDS: amLODIPine BESYLATE 5 MG TABLET PO SCH (09:23)
[2017-03-12] MEDS ORDERED: IRON SUCROSE COMPLEX 200 MG in IV NORMAL SALINE 100ML 100 ML IV ONE (10:00)
--- NOTE | 2017-03-12 10:13 | PDOC ---
VERONICAPAUL OLIVERA PRATIK 03/12/17 1013: CARDIO Progress Notes Date and Time Date of Service 03/12/17 Time of Evaluation 1015 Subjective Subjective: No Chest Pain, No shortness of breath, No Palpitations, Other ( feeling better, edema improved) Vitals Vitals Vital Signs Date Time Temp Pulse Resp B/P (MAP) Pulse Ox O2 Delivery O2 Flow Rate FiO2 03/12/17 09:23 92 137/66 03/12/17 07:00 98.1 20 92 Room Air 98.1 Weight Weight [ ] Input and Output Intake and Output Intake and Output 03/12/17 07:00 Intake Total 1100 ml Output Total 3500 ml Balance -2400 ml Intake Oral 1100 ml Output Urine Total 3500 ml Laboratory Labs Laboratory Tests Test 03/11/17 11:14 03/11/17 16:15 03/11/17 17:37 03/11/17 20:29 Glucose (Fingerstick) 220 mg/dL (70-99) 243 mg/dL (70-99) 282 mg/dL (70-99) Prothrombin Time 12.8 SEC (11.7-14.0) Prothromb Time International Ratio 1.0 (0.8-1.1) Test 03/12/17 04:45 03/12/17 07:37 White Blood Count 9.6 x10^3/uL (4.0-11.0) Red Blood Count 2.54 x10^6/uL (3.50-5.40) Hemoglobin 7.3 g/dL (12.0-15.5) Hematocrit 21.4 % (36.0-47.0) Mean Corpuscular Volume 85 fL (79-100) Mean Corpuscular Hemoglobin 29 pg (25-35) Mean Corpuscular Hemoglobin Concent 34 g/dL (31-37) Red Cell Distribution Width 13.4 % (11.5-14.5) Platelet Count 261 x10^3/uL (140-400) Neutrophils (%) (Auto) 73 % (31-73) Lymphocytes (%) (Auto) 16 % (24-48) Monocytes (%) (Auto) 8 % (0-9) Eosinophils (%) (Auto) 4 % (0-3) Basophils (%) (Auto) 1 % (0-3) Neutrophils # (Auto) 7.0 x10^3uL (1.8-7.7) Lymphocytes # (Auto) 1.5 x10^3/uL (1.0-4.8) Monocytes # (Auto) 0.7 x10^3/uL (0.0-1.1) Eosinophils # (Auto) 0.4 x10^3/uL (0.0-0.7) Basophils # (Auto) 0.1 x10^3/uL (0.0-0.2) Sodium Level 138 mmol/L (136-145) Potassium Level 4.5 mmol/L (3.5-5.1) Chloride Level 104 mmol/L (98-107) Carbon Dioxide Level 22 mmol/L (21-32) Anion Gap 12 (6-14) Blood Urea Nitrogen 46 mg/dL (7-20) Creatinine 2.6 mg/dL (0.6-1.0) Estimated GFR (Cockcroft-Gault) 19.3 Glucose Level 176 mg/dL (70-99) Calcium Level 8.9 mg/dL (8.5-10.1) Phosphorus Level 4.9 mg/dL (2.6-4.7) Magnesium Level 2.1 mg/dL (1.8-2.4) Glucose (Fingerstick) 177 mg/dL (70-99) Physical Exam HEENT: Neck Supple W Full Motion Chest: Symmetric LUNGS: Clear to Auscultation, Other Heart: S1S2, RRR (SR) Abdomen: Soft N/T, Other (mild anasarca) Extremities: No Calf Tenderness, Other (2+ bilateral LE pitting edema) Neurology: alert, oriented, follow commands Assessment Assessment 1. Generalized anasarca; recent echo showed LVEF of 50-55% and normal diastolic function 2. Malignant HTN, remains labile 3. DM, II with diabetic neuropathy 4. CKD 5. Hyperlipidemia 6. Acute on chronic diastolic CHF: compensated Recommendation 1. Continue diuresis as per nephrology. 2. Supportive care. EUNICE NOLAN MD 03/12/17 1340: CARDIO Progress Notes Assessment Assessment Patient seen and examined. Agree with ENROLLED NURSE's assessment and plan. Edema slightly improved from yesterday with diuresis. We will consider right heart catheterization as an outpatient. Continue current medical regimen. PAUL MARTIN APRN Mar 12, 2017 10:13 EUNICE NOLAN MD Mar 12, 2017 13:40
--- NOTE | 2017-03-12 10:31 | PDOC ---
PROGRESS NOTES Subjective Subjective want to go home today Objective Objective Vital Signs Date Time Temp Pulse Resp B/P (MAP) Pulse Ox O2 Delivery O2 Flow Rate FiO2 03/12/17 09:23 92 137/66 03/12/17 07:00 98.1 20 92 Room Air 98.1 Intake and Output 03/12/17 07:00 Intake Total 1100 ml Output Total 3500 ml Balance -2400 ml Intake Oral 1100 ml Output Urine Total 3500 ml Physical Exam Abdomen: Normal bowel sounds, Soft, No tenderness Heart: Regular rate, Normal S1, Normal S2 Extremities: No clubbing, Other General: Alert, Oriented X3, Cooperative, No acute distress HEENT: Atraumatic, PERRLA, EOMI, Mucous membr. moist/pink Lungs: Other MUSCULOSKELETAL: No joint tenderness, No deformity Neuro: Normal speech, Cranial nerves 3-12 NL Psych/Mental Status: Mental status NL, Mood NL Skin: No rashes, No breakdown, No significant lesion COMMENT 2+ edema legs Assessment Assessment FINAL IMPRESSION: 1. Anasarca. 2. Nephrotic syndrome. 3. Diastolic heart failure. 4. Anemia of chronic disease. 5. Chronic kidney disease stage 4. 6. Type 2 diabetes, requiring insulin now. 7. Hypertension. 8. Hyperlipidemia. PLAN:24 hour urine in progress. iv lasix while in hospital d/c home on demadex+zaroxolyn spoke with Renal . spoke with family members cr 2.5 . Hb 7,5 received iv iron+aranesp. Plan at this time was admit to the hospital, aggressive dialysis with IV Lasix. Nephrology consult, also Cardiology will see, may be an echo to see how the cardiac function is doing and also IV infusion iron and see how she does. DVT prevention with SCDs. Problems: Comment Review of Relevant I have reviewed the following items allen (where applicable) has been applied. Labs Laboratory Tests Test 03/11/17 11:14 03/11/17 16:15 03/11/17 17:37 03/11/17 20:29 Glucose (Fingerstick) 220 mg/dL (70-99) 243 mg/dL (70-99) 282 mg/dL (70-99) Prothrombin Time 12.8 SEC (11.7-14.0) Prothromb Time International Ratio 1.0 (0.8-1.1) Test 03/12/17 04:45 03/12/17 07:37 White Blood Count 9.6 x10^3/uL (4.0-11.0) Red Blood Count 2.54 x10^6/uL (3.50-5.40) Hemoglobin 7.3 g/dL (12.0-15.5) Hematocrit 21.4 % (36.0-47.0) Mean Corpuscular Volume 85 fL (79-100) Mean Corpuscular Hemoglobin 29 pg (25-35) Mean Corpuscular Hemoglobin Concent 34 g/dL (31-37) Red Cell Distribution Width 13.4 % (11.5-14.5) Platelet Count 261 x10^3/uL (140-400) Neutrophils (%) (Auto) 73 % (31-73) Lymphocytes (%) (Auto) 16 % (24-48) Monocytes (%) (Auto) 8 % (0-9) Eosinophils (%) (Auto) 4 % (0-3) Basophils (%) (Auto) 1 % (0-3) Neutrophils # (Auto) 7.0 x10^3uL (1.8-7.7) Lymphocytes # (Auto) 1.5 x10^3/uL (1.0-4.8) Monocytes # (Auto) 0.7 x10^3/uL (0.0-1.1) Eosinophils # (Auto) 0.4 x10^3/uL (0.0-0.7) Basophils # (Auto) 0.1 x10^3/uL (0.0-0.2) Sodium Level 138 mmol/L (136-145) Potassium Level 4.5 mmol/L (3.5-5.1) Chloride Level 104 mmol/L (98-107) Carbon Dioxide Level 22 mmol/L (21-32) Anion Gap 12 (6-14) Blood Urea Nitrogen 46 mg/dL (7-20) Creatinine 2.6 mg/dL (0.6-1.0) Estimated GFR (Cockcroft-Gault) 19.3 Glucose Level 176 mg/dL (70-99) Calcium Level 8.9 mg/dL (8.5-10.1) Phosphorus Level 4.9 mg/dL (2.6-4.7) Magnesium Level 2.1 mg/dL (1.8-2.4) Glucose (Fingerstick) 177 mg/dL (70-99) Medications Current Medications Darbepoetin Aman (Aranesp) 100 mcg 1X ONCE SQ Last administered on 03/11/17 20:26; Start 03/11/17 at 21:00; Stop 03/11/17 at 21:01; Status DC Furosemide (Lasix) 40 mg [id number] IVP Last administered on 03/12/17 09:05; Start 03/11/17 at 14:00 Iron Sucrose 200 mg/Sodium Chloride 110 ml @ 55 mls/hr 1X ONCE IV ; Start at 10:00; Stop 03/12/17 at 10:00; Status DC Isosorbide Mononitrate (Imdur) 60 mg DAILY PO Last administered on 03/12/17 09:03; Start 03/11/17 at 16:00 Metolazone (Zaroxolyn) 2.5 mg DAILY PO Last administered on 03/12/17 09:04; Start 03/11/17 at 12:00 Torsemide (Demadex) 20 mg DAILY PO Last administered on 03/12/17 08:59; Start 03/11/17 at 12:00 Vitals/I & O Vital Sign - Last 24 Hours 03/11/17 03/11/17 03/11/17 03/11/17 11:00 14:25 15:00 17:54 Temp 97.8 98.3 97.8 98.3 Pulse 72 72 70 69 Resp 18 18 B/P (MAP) 167/77 (107) 140/64 145/67 (93) 163/78 Pulse Ox 94 93 O2 Delivery Room Air Room Air 03/11/17 03/11/17 03/11/17 03/11/17 19:30 19:50 20:23 20:24 Temp 98.1 98.1 Pulse 73 76 70 Resp 18 B/P (MAP) 137/70 (92) 137/70 137/70 Pulse Ox 95 O2 Delivery Room Air Room Air 03/11/17 03/12/17 03/12/17 03/12/17 23:20 03:25 07:00 08:59 Temp 97.7 98.4 98.1 97.7 98.4 98.1 Pulse 70 90 92 92 Resp 18 19 20 B/P (MAP) 116/57 (76) 151/87 (108) 137/66 (89) 137/66 Pulse Ox 95 94 92 O2 Delivery Room Air Room Air Room Air 03/12/17 03/12/17 03/12/17 03/12/17 09:02 09:03 09:03 09:04 Pulse 92 92 92 92 B/P (MAP) 137/66 137/66 137/66 137/66 03/12/17 09:23 Pulse 92 B/P (MAP) 137/66 Intake and Output 03/11/17 03/11/17 03/12/17 15:00 23:00 07:00 Intake Total 800 ml 0 ml 300 ml Output Total 2100 ml 500 ml 900 ml Balance -1300 ml -500 ml -600 ml YARELIS FONTENOT MD Mar 12, 2017 10:31
[2017-03-12] MEDS: IRON SUCROSE COMPLEX 200 MG in TOTAL VOLUME SYRINGE 0 ML IV SCH (10:40)
[2017-03-12 11:00] VITALS: BP 129/55
--- NOTE | 2017-03-12 11:45 | PDOC ---
Renal-Progress Notes Subjective Notes Notes FEELS WELL. NO MORE SOB History of Present Illness Hx of present illness STABLE Vitals Vitals Vital Signs Date Time Temp Pulse Resp B/P (MAP) Pulse Ox O2 Delivery O2 Flow Rate FiO2 03/12/17 11:00 97.8 74 20 129/55 (79) 94 Room Air 97.8 Weight Weight [ ] I.O. Intake and Output Intake and Output 03/12/17 07:00 Intake Total 1100 ml Output Total 3500 ml Balance -2400 ml Intake Oral 1100 ml Output Urine Total 3500 ml Labs Labs Laboratory Tests Test 03/11/17 16:15 03/11/17 17:37 03/11/17 20:29 03/12/17 04:45 Prothrombin Time 12.8 SEC (11.7-14.0) Prothromb Time International Ratio 1.0 (0.8-1.1) Glucose (Fingerstick) 243 mg/dL (70-99) 282 mg/dL (70-99) White Blood Count 9.6 x10^3/uL (4.0-11.0) Red Blood Count 2.54 x10^6/uL (3.50-5.40) Hemoglobin 7.3 g/dL (12.0-15.5) Hematocrit 21.4 % (36.0-47.0) Mean Corpuscular Volume 85 fL (79-100) Mean Corpuscular Hemoglobin 29 pg (25-35) Mean Corpuscular Hemoglobin Concent 34 g/dL (31-37) Red Cell Distribution Width 13.4 % (11.5-14.5) Platelet Count 261 x10^3/uL (140-400) Neutrophils (%) (Auto) 73 % (31-73) Lymphocytes (%) (Auto) 16 % (24-48) Monocytes (%) (Auto) 8 % (0-9) Eosinophils (%) (Auto) 4 % (0-3) Basophils (%) (Auto) 1 % (0-3) Neutrophils # (Auto) 7.0 x10^3uL (1.8-7.7) Lymphocytes # (Auto) 1.5 x10^3/uL (1.0-4.8) Monocytes # (Auto) 0.7 x10^3/uL (0.0-1.1) Eosinophils # (Auto) 0.4 x10^3/uL (0.0-0.7) Basophils # (Auto) 0.1 x10^3/uL (0.0-0.2) Sodium Level 138 mmol/L (136-145) Potassium Level 4.5 mmol/L (3.5-5.1) Chloride Level 104 mmol/L (98-107) Carbon Dioxide Level 22 mmol/L (21-32) Anion Gap 12 (6-14) Blood Urea Nitrogen 46 mg/dL (7-20) Creatinine 2.6 mg/dL (0.6-1.0) Estimated GFR (Cockcroft-Gault) 19.3 Glucose Level 176 mg/dL (70-99) Calcium Level 8.9 mg/dL (8.5-10.1) Phosphorus Level 4.9 mg/dL (2.6-4.7) Magnesium Level 2.1 mg/dL (1.8-2.4) Test 03/12/17 07:37 Glucose (Fingerstick) 177 mg/dL (70-99) Review of Systems Constitutional: yes: weakness, alert, oriented Eyes: Yes: no symptom reported Pulmonary: Yes dyspnea Cardiovascular: Yes edema Gastrointestional: Yes: no symptom reported Genitourinary: Yes: no symptom reported Musculoskeletal: Yes: muscle stiffness Skin: Yes no symptom reported Psychiatric/Neurological: Yes: no symptom reported Endocrine: Yes: no symptom reported Physical Exam General Appearance: no apparent distress Skin: warm Respiratory: bilateral CTA Heart: S1S2 Abdomen: soft, bowel sounds present Genitourinary: bladder flat Extremities: pulses present, edema Neurology: alert, oriented, follow commands Musculoskeletal: Other Assessment Assessment IMP EDEMA CHF PROTEINURIA DM II HTN ANEMIA PLAN DOING WELL OK TO D/C HOME WILL USE DEMADEX, ZAROXOLYN AND LOW DOSE KCL OP FOLLOW UP ALREADY SET UP D/W CECI JAIMES MD Mar 12, 2017 11:45
[2017-03-12 15:44] VITALS: BP 145/68
[2017-03-12] MEDS ORDERED: INSU100I17 SQ (15:54)
[2017-03-12] MEDS ORDERED: INSU100V13 SQ (15:56)
[2017-03-12] MEDS ORDERED: HYDR-2869 PO (15:57)
[2017-03-12] MEDS ORDERED: ISOS60TA2 PO (16:00)
[2017-03-12] MEDS ORDERED: TORS20TA2 PO (16:00)
[2017-03-12] MEDS ORDERED: POTASSIUM CHLO10 MEQ PO (16:01)
[2017-03-14 00:07] LABS: TOTAL SERUM CREATININE 2.56 mg/dL (0.57-1.00); TOTAL URINE CREATININE 34.7 mg/dL (Not Estab.)
== END 2017-03-12 16:25 | disposition home or self-care (01) | DRG 291 ==
LOC: 2 SOUTH 14:51
PROVIDERS: ADMIT Internal Medicine; ATTEND Internal Medicine
DX: I13.0 Hypertensive heart and chronic kidney disease with heart failure and stage 1 through stage 4 chronic kidney disease, or unspecified chronic kidney disease (principal); I50.43 Acute on chronic combined systolic (congestive) and diastolic (congestive) heart failure; E11.21 Type 2 diabetes mellitus with diabetic nephropathy; E11.40 Type 2 diabetes mellitus with diabetic neuropathy, unspecified; N18.4 Chronic kidney disease, stage 4 (severe); N04.9 Nephrotic syndrome with unspecified morphologic changes; D63.1 Anemia in chronic kidney disease; E11.22 Type 2 diabetes mellitus with diabetic chronic kidney disease; E78.5 Hyperlipidemia, unspecified; Z79.4 Long term (current) use of insulin; Z82.49 Family history of ischemic heart disease and other diseases of the circulatory system; Z87.441 Personal history of nephrotic syndrome; Z83.3 Family history of diabetes mellitus; Z90.710 Acquired absence of both cervix and uterus
CPT/HCPCS: 36415; 71020; 80048; 80053; 80061; 81001; 82575; 82728; 82962; 83036; 83540; 83550; 83735; 84100; 84156; 84443; 85025; 85045; 85610; 93005; 93970; J0881; J1756; J1815; J1940

== ENCOUNTER 2018-06-11 15:38 | Inpatient (IN) | payer SELFPAY ==
[~2018-06-11] VITALS: Ht 170.2 cm; Wt 118.8 kg
[~2018-06-11 15:38] MED LIST changes: +AMLO5TAB10 PO; -AMLO5TAB2 PO; -BUME1TAB PO; +BUME1TAB3 PO; +CLON0.1T PO; +ERGO500027 PO; -FERR-26 PO; +FERR325T14 PO; +FURO80TA3 PO; +INSU100I17 SQ; +INSU100V13 SQ; +INSU200I SQ; +INSU300I SQ; +ISOS60TA2 PO; +LOSA100T14 PO; -LOSA100T6 PO; +METO-269 PO; +METO2.5T PO; -METO50TA2 PO; +METO50TA6 PO; +POTA10TA12 PO; +TORS20TA2 PO
[2018-06-11] MEDS ORDERED: IV NORMAL SALINE 1000ML BAG 1,000 ML IV ONE (16:15)
[2018-06-11] MEDS ORDERED: FAMOTIDINE 20 MG/2 ML VIAL IVP ONE (16:15)
[2018-06-11 16:20] VITALS: BP 151/69
[2018-06-11 16:25] LABS: BASO % 1 % (0-3); EOS % 0 % (0-3); HEMATOCRIT 26.3 % (36.0-47.0); HEMOGLOBIN 9.2 g/dL (12.0-15.5); LYMPH % 23 % (24-48); MEAN CORPUSCULAR HEMOGLOBIN 29 pg (25-35); MEAN CORPUSCULAR HGB CONC 35 g/dL (31-37); MEAN CORPUSCULAR VOLUME 82 fL (79-100); MONO # 0.4 x10^3/uL (0.0-1.1); MONO % 10 % (0-9); NEUT # 2.9 x10^3uL (1.8-7.7); NEUT % 66 % (31-73); PLATELET COUNT 224 x10^3/uL (140-400); RED CELL DISTRIBUTION WIDTH 13.4 % (11.5-14.5); WHITE BLOOD COUNT 4.4 x10^3/uL (4.0-11.0)
[2018-06-11 16:34] LABS: PROTHROMBIN TIME PATIENT 14.2 SEC (11.7-14.0)
[2018-06-11 16:42] LABS: CALCIUM 8.8 mg/dL (8.5-10.1); CREATININE 4.8 mg/dL (0.6-1.0); GFR 9.5; POTASSIUM 3.4 mmol/L (3.5-5.1)
[2018-06-11 16:45] LABS: ALBUMIN 2.3 g/dL (3.4-5.0); ALBUMIN/GLOBULIN RATIO 0.5 (1.0-1.7); TOTAL BILIRUBIN 0.3 mg/dL (0.2-1.0); TOTAL PROTEIN 6.8 g/dL (6.4-8.2)
[2018-06-11] MEDS ORDERED: dilTIAZem INJ 125 MG in IV DEXTROSE 5% 100ML 100 ML IV ONE (16:45)
[2018-06-11] MEDS ORDERED: ASPIRIN 325 MG TABLET PO ONE (16:45)
[2018-06-11] MEDS ORDERED: dilTIAZem IV PUSH 25 MG/5 ML VIAL IVP ONE (16:45)
[2018-06-11] MEDS ORDERED: ACETAMINOPHEN 325 MG TABLET. PO PRN (17:00)
[2018-06-11] MEDS ORDERED: DEXTROSE 50% 25 GM / 50ML DISP.SYRIN. IV PRN (17:00)
[2018-06-11] MEDS ORDERED: INSULIN REGULAR 100 UNIT/ML 3ML VIAL. SQ ONE (17:00)
[2018-06-11] MEDS: INSULIN LISPRO 300 UNITS/3 ML INSULN.PEN. SQ SCH (17:00)
[2018-06-11] MEDS ORDERED: ONDANSETRON PF 4 MG/2 ML VIAL. IV PRN (17:00)
--- NOTE | 2018-06-11 17:11 | PHYS DOC ---
Past Medical History Past Medical History: Anemia, Diabetes-Type II, Hypertension Past Surgical History: Hysterectomy, Other Additional Past Surgical Histo: Dilation and Curettage Alcohol Use: None Drug Use: None Adult General Chief Complaint Chief Complaint: DIZZY/LIGHT HEADED HPI HPI 52 y/o female presents with reports of dizziness with associated cough x 3 days. Also reports palpitations. Denies chest pain. Patient denies fever/chills. Denies trauma. Denies leg swelling or calf tenderness. Review of Systems Review of Systems Constitutional: Denies fever or chills [] Eyes: Denies change in visual acuity, redness, or eye pain [] HENT: Denies nasal congestion or sore throat [] Respiratory: Reports cough; denies shortness of breath [] Cardiovascular: Denies chest pain; reports palpitations GI: Denies abdominal pain, nausea, vomiting, or diarrhea [] : Denies dysuria or hematuria [] Musculoskeletal: Denies back pain or joint pain [] Integument: Denies rash or skin lesions [] Neurologic: Denies headache, focal weakness or sensory changes [] Complete systems were reviewed and found to be within normal limits, except as documented in this note. Current Medications Current Medications Current Medications Medications (Trade) Dose Ordered Sig/Joshua Start Time Stop Time Status Last Admin Dose Admin Aspirin (Devorah Aspirin) 325 mg 1X ONCE 06/11/18 16:45 06/11/18 16:46 DC 06/11/18 16:45 325 MG Diltiazem HCl (Cardizem Iv Push) 10 mg 1X ONCE 06/11/18 16:45 06/11/18 16:46 DC 06/11/18 16:55 10 MG Diltiazem HCl 125 mg/Dextrose 125 ml @ 5 mls/hr 1X ONCE 06/11/18 16:45 06/12/18 17:44 DC 06/11/18 17:10 5 MLS/HR Famotidine (Pepcid Vial) 20 mg 1X ONCE 06/11/18 16:15 06/11/18 16:17 DC 06/11/18 16:56 20 MG Sodium Chloride 1,000 ml @ 1,000 mls/hr 1X ONCE 06/11/18 16:15 06/11/18 17:14 DC 06/11/18 16:55 1,000 MLS/HR Allergies Allergies Allergies Coded Allergies Type Severity Reaction Last Updated Verified Penicillins Allergy Intermediate 03/16/18 Yes Sulfa (Sulfonamide Antibiotics) Allergy Intermediate 03/16/18 Yes Physical Exam Physical Exam Constitutional: Well developed, well nourished, no acute distress, non-toxic appearance. [] HENT: Normocephalic, atraumatic, oropharynx moist Eyes: Conjunctiva normal, no discharge. [] Neck: Normal range of motion, no tenderness, supple, no stridor. [] Cardiovascular: Tachycardia, irregular rhythm Lungs & Thorax: Bilateral breath sounds clear to auscultation [] Abdomen: Soft, no tenderness Skin: Warm, dry, no erythema, no rash. [] Back: No tenderness, no CVA tenderness. [] Extremities: No tenderness, ROM intact Neurologic: Alert and oriented X 3, no focal deficits noted. [] Psychologic: Affect normal, judgement normal, mood normal. [] Current Patient Data Vital Signs Lab Values Laboratory Tests Test 06/11/18 16:02 White Blood Count 4.4 x10^3/uL (4.0-11.0) Red Blood Count 3.20 x10^6/uL (3.50-5.40) L Hemoglobin 9.2 g/dL (12.0-15.5) L Hematocrit 26.3 % (36.0-47.0) L Mean Corpuscular Volume 82 fL (79-100) Mean Corpuscular Hemoglobin 29 pg (25-35) Mean Corpuscular Hemoglobin Concent 35 g/dL (31-37) Red Cell Distribution Width 13.4 % (11.5-14.5) Platelet Count 224 x10^3/uL (140-400) Neutrophils (%) (Auto) 66 % (31-73) Lymphocytes (%) (Auto) 23 % (24-48) L Monocytes (%) (Auto) 10 % (0-9) H Eosinophils (%) (Auto) 0 % (0-3) Basophils (%) (Auto) 1 % (0-3) Neutrophils # (Auto) 2.9 x10^3uL (1.8-7.7) Lymphocytes # (Auto) 1.0 x10^3/uL (1.0-4.8) Monocytes # (Auto) 0.4 x10^3/uL (0.0-1.1) Eosinophils # (Auto) 0.0 x10^3/uL (0.0-0.7) Basophils # (Auto) 0.0 x10^3/uL (0.0-0.2) Prothrombin Time 14.2 SEC (11.7-14.0) H Prothrombin Time INR 1.1 (0.8-1.1) PTT 43 SEC (24-38) H Sodium Level 134 mmol/L (136-145) L Potassium Level 3.4 mmol/L (3.5-5.1) L Chloride Level 98 mmol/L (98-107) Carbon Dioxide Level 20 mmol/L (21-32) L Anion Gap 16 (6-14) H Blood Urea Nitrogen 55 mg/dL (7-20) H Creatinine 4.8 mg/dL (0.6-1.0) H Estimated GFR (Cockcroft-Gault) 9.5 BUN/Creatinine Ratio 11 (6-20) Glucose Level 301 mg/dL (70-99) H Calcium Level 8.8 mg/dL (8.5-10.1) Magnesium Level 2.0 mg/dL (1.8-2.4) Total Bilirubin 0.3 mg/dL (0.2-1.0) Aspartate Amino Transferase (AST) 29 U/L (15-37) Alanine Aminotransferase (ALT) 22 U/L (14-59) Alkaline Phosphatase 112 U/L (46-116) Creatine Kinase 234 U/L (26-192) H Creatine Kinase MB (Mass) 1.2 ng/mL (0.0-3.6) Creatine Kinase MB Relative Index 0.5 % (0-4) Troponin I Quantitative 0.315 ng/mL (0.000-0.055) Total Protein 6.8 g/dL (6.4-8.2) Albumin 2.3 g/dL (3.4-5.0) L Albumin/Globulin Ratio 0.5 (1.0-1.7) L Lipase 204 U/L (73-393) Laboratory Tests 06/11/18 16:02 Laboratory Tests 06/11/18 16:02 EKG EKG @1557 SVT at 147bpm, narrow complex, nonspecific t wave inversion to I-II and aVL @1635 Afib RVR at 138bpm, NO ST elevation, nonspecific t wave inversion to I,II, and aVL. Radiology/Procedures Radiology/Procedures PROCEDURE: PORTABLE CHEST 1V PORTABLE CHEST 1V Clinical Indication: COUGH Comparison: Two-view chest, March 10, 2017. Findings: Cardiomegaly. Stable eventration of medial right hemidiaphragm. Lungs are clear. There is no pneumothorax. No pleural effusion is appreciated. No acute bone abnormality. IMPRESSION: No acute cardiopulmonary process. Electronically signed by: Carlton Collier MD (06/11/2018 5:19 PM) [id number] Course & Med Decision Making Course & Med Decision Making Pertinent Labs and Imaging studies reviewed. (See chart for details) Patient presents with history of cough and dizziness. EKG with findings concerning for SVT vs Afib RVR. Cardizem bolus/gtt initiated. Labs obtained an d posted to chart. Hyperglycemia addressed. Troponin elevated. Renal insufficiency noted. CXR without acute processes. Patient requiring admission for further evaluation and treatment. Discussed with Dr. Nixon (online producer for Dr Fontenot- PCP) who is in agreement with admit. Discussed findings and plan with patient, who acknowledges understanding and agreement. Dragon Disclaimer Dragon Disclaimer This electronic medical record was generated, in whole or in part, using a voice recognition dictation system. Departure Departure Impression: Primary Impression: Atrial fibrillation with RVR Additional Impressions: Acute on chronic renal failure Elevated troponin Hyperglycemia Disposition: ADMITTED INPATIENT Admitting Physician: Ian Nixon (online producer for Dr. Fontenot) Condition: GUARDED Referrals: YARELIS FONTENOT MD (PCP) Scripts Cephalexin (KEFLEX) 500 Mg Capsule 1 CAP PO BID for uti, #14 CAP Prov: YARELIS FONTENOT MD 06/18/18 Aspirin (ASPIRIN EC) 81 Mg Tablet. 81 MG PO [id number] for cad for 30 Days, #30 TAB.SR Prov: YARELIS FONTENOT MD 06/18/18 Critical Care Time Critical care time was 30 minutes which includes time at bedside, spent in discussion of patient's care with specialists and/or family members, with interpretation of laboratory and/or radiological studies and is exclusive of procedures. Problem Qualifiers Additional Impressions: Acute on chronic renal failure Acute renal failure type: unspecified Chronic kidney disease stage: unspecified stage Qualified Codes: N17.9 - Acute kidney failure, unspecified; N18.9 - Chronic kidney disease, unspecified SHELBY LEDBETTER DO Jun 11, 2018 17:11
[2018-06-11] MEDS ORDERED: ONDANSETRON PF 4 MG/2 ML VIAL. IV ONE (17:15)
--- NOTE | 2018-06-11 17:22 | RAD ---
PORTABLE CHEST 1V Clinical Indication: COUGH Comparison: Two-view chest, March 10, 2017. Findings: Cardiomegaly. Stable eventration of medial right hemidiaphragm. Lungs are clear. There is no pneumothorax. No pleural effusion is appreciated. No acute bone abnormality. IMPRESSION: No acute cardiopulmonary process. Electronically signed by: Carlton Collier MD (06/11/2018 5:19 PM) [id number]
[2018-06-11] MEDS ORDERED: POTA10TA12 PO (18:27)
[2018-06-11 19:00] VITALS: BP 151/69
--- NOTE | 2018-06-11 22:32 | PDOC2 ---
CARDIOLOGY CONSULT NOTE CHEIF COMPLAINT: Dizziness HPI: 52 y.o f with PMH HTN, CHF, CKD stage IV, DM admitted with atrial fibrillation with RVR. Pt states that over the past few days she has had multiple episodes of n/v/d and yesterday began to feel lightheaded and dizzy. States that BP at this time was low. She denies any CP/SOB, palpitations, orthopnea, PND, f/c. States that she is not compliant with meds, and that on average takes meds 3 days a week because they make her feel sick. Denies any limitations in ADLs. Pt sees Dr. Soto for CKD, not on dialysis. In ED noted to be in afib with RVR, given cardizem. No prior cardiac issues. She is semi-compliant with meds due to side-effects. PMHX: 1. HTN 2. CKD stage 4 3. Dyslipidemia 4. DM2 5. Diastolic HF SOCHX: No alcohol, tob or illicit drug use. FAMHX: Father- 5 vessel CABG Older brother- PCI CURRENT MEDS: Hydralazine 50mg bid Atorvastatin 40mg daily Toprol XL 50mg daily Imdur 30mg daily Norvasc 5mg daily ALLERGIES: Allergies Coded Allergies Type Severity Reaction Last Updated Verified Penicillins Allergy Intermediate 03/16/18 Yes Sulfa (Sulfonamide Antibiotics) Allergy Intermediate 03/16/18 Yes ROS: Negative for 02/06 systems reviewed unless otherwise noted above in HPI PHYSICAL EXAM: Vital Signs: Vital Signs Date Time Temp Pulse Resp B/P (MAP) Pulse Ox O2 Delivery O2 Flow Rate FiO2 06/11/18 19:00 98.0 75 18 151/69 (96) 96 Room Air 98.0 Physical Exam: GEN.: No apparent distress. Alert and oriented. HEENT: Head is normocephalic, atraumatic NECK: Supple. LUNGS: Clear to auscultation. HEART: RRR, S1, S2 present. Peripheral pulses intact ABDOMEN: Soft, nontender. Positive bowel sounds. EXTREMITIES: BLE 1+ pitting edema Without any cyanosis. NEUROLOGIC: Normal speech, normal tone PSYCHIATRIC: Normal affect, normal mood. SKIN: No ulcerations DIAGNOSTIC TESTING: Hgb 9 Plt 224 Trop 0.447 Cr 4.8 ASSESSMENT: 1. Afib with RVR 2. HTN 3. Elevated troponin - likely Type 2 4. CKD stage 4 5 Anemia. 6. Probable diastolic HF. PLAN: 1. Currently in SR. Stop diltiazem. Continue present meds. 2. No need for anticoagulation at this time, consider outpt monitor and determine burden. If unable to afford monitor due to insurance issues, could start warfarin, although without insurance, INR checks will be difficult. 3. Check echo. Supportive care. Thanks. LELE FRY MD Jun 11, 2018 22:32
[2018-06-11 23:43] VITALS: BP 145/67
[2018-06-12 03:00] VITALS: BP 136/63
[2018-06-12 07:22] VITALS: BP 150/68
[2018-06-12] MEDS: INSULIN LISPRO 300 UNITS/3 ML INSULN.PEN. SQ SCH ×3 (08:00→16:30)
[2018-06-12] MEDS ORDERED: ERGOCALCIFEROL (VITAMIN D2) 50,000 UNIT CAPSULE. PO SCH (09:30)
[2018-06-12] MEDS ORDERED: POTASSIUM CHLORIDE 20 MEQ TABLET.ER. PO ONE (10:30)
--- NOTE | 2018-06-12 10:39 | PDOC2 ---
CONSULT Date of Consult Date of Consult DATE: 06/12/18 TIME: 10:30 Reason for Consult Reason for Consult: RENAL FAILURE Referring Physician Referring Physician: BRANDON Identification/Chief Complaint Chief Complaint DIZZY Source Source: Chart review, Patient History of Present Illness Reason for Visit: THIS IS A 52 YR NOT DOING WELL LAST FEW DAYS. STARTED WITH COUGHING ON WED AND WEDNESDAY, THEN HAD SOME NAUSEA WHICH RESOLVED. YESTERDAY SHE STARTED TO FEEL DIZZY AND THEN IT DID NOT IMPROVE SO SHE CAME IN TO THE ER. SHE IS NOTED TO BE IN AFIB RVR. CR IS 4.8 AND THIS IS CLOSE TO HER BASELINE CKD STAGE 4 DUE TO DM II AND HTN. SHE USED TO SEVERE NEPHROTIC SYNDROME WITH PROTEINURIA OF NEARLY 10 GM A DAY. SHE WAS THEN STARTED ON AN ARB WITH IMPROVEMENT IN HER PROTEINURIA TO ABOUT 2.5 GM A DAY. UNFORTUNATELY SHE HAS LOST HER INSURANCE SINCE SHE GOT AND NOW LIVES AT HOME WITH HER PARENT. SHE DOES NOT HAVE ANY COVERAGE FOR MEDS AND I DONT THINK SHE HAS BEEN TAKING ANY OF HER MEDS REGULARLY. SHE IS ALSO ANEMIC AND NOTED TO HAVE MILD HYPOKALEMIA. CARDIOLOGY EVALUATION ONGOING AT THIS TIME Past Medical History Cardiovascular: HTN, Hyperlipidemia Pulmonary: No pertinent hx CENTRAL NERVOUS SYSTEM: Other GI: No pertinent hx, Other Heme/Onc: Anemia NOS Hepatobiliary: No pertinent hx Psych: No pertinent hx Musculoskeletal: Other Rheumatologic: No pertinent hx Infectious disease: No pertinent hx Renal/: Chronic renal insuff, UTI, Other Endocrine: Diabetes Past Surgical History Past Surgical History: Hysterectomy Family History Family History: Coronary Artery Disease, Diabetes, High Cholestrol, Hypertension Social History ALCOHOL: none Drugs: None Lives: with Family Current Problem List Problem List Problems Medical Problems: (1) Atrial fibrillation with RVR Status: Acute (2) Elevated troponin Status: Acute (3) Hyperglycemia Status: Acute Current Medications Current Medications Current Medications Famotidine (Pepcid Vial) 20 mg 1X ONCE IVP Last administered on 06/11/18at 16: 56; Start 06/11/18 at 16:15; Stop 06/11/18 at 16:17; Status DC Sodium Chloride 1,000 ml @ 1,000 mls/hr 1X ONCE IV Last administered on at 16:55; Start 06/11/18 at 16:15; Stop 06/11/18 at 17:14; Status DC Diltiazem HCl (Cardizem Iv Push) 10 mg 1X ONCE IVP Last administered on at 16:55; Start 06/11/18 at 16:45; Stop 06/11/18 at 16:46; Status DC Diltiazem HCl 125 mg/Dextrose 125 ml @ 5 mls/hr 1X ONCE IV Last administered on 06/11/18at 17:10; Start 06/11/18 at 16:45; Stop 06/12/18 at 17:44 Aspirin (Devorah Aspirin) 325 mg 1X ONCE PO Last administered on 06/11/18at 16:45 ; Start 06/11/18 at 16:45; Stop 06/11/18 at 16:46; Status DC Insulin Human Regular (HumuLIN R VIAL) 14 unit 1X ONCE SQ Last administered on 06/11/18at 17:01; Start 06/11/18 at 17:00; Stop 06/11/18 at 17:01; Status DC Ondansetron HCl (Zofran) 4 mg PRN Q8HRS PRN IV NAUSEA/VOMITING; Start 06/11/18 at 17:00; Stop 06/12/18 at 16:59 Acetaminophen (Tylenol) 650 mg PRN Q4HRS PRN PO FEVER; Start 06/11/18 at 17:00 ; Stop 06/12/18 at 16:59 Insulin Human Lispro (HumaLOG) 0-5 UNITS TIDWMEALS SQ ; Start 06/11/18 at 17:00 Dextrose (Dextrose 50%-Water Syringe) 12.5 gm PRN Q15MIN PRN IV SEE COMMENTS; Start 06/11/18 at 17:00 Ondansetron HCl (Zofran) 4 mg 1X ONCE IV Last administered on 06/11/18at 17:15 ; Start 06/11/18 at 17:15; Stop 06/11/18 at 17:25; Status DC Amlodipine Besylate (Norvasc) 5 mg DAILY PO ; Start 06/12/18 at 09:15 Atorvastatin Calcium (Lipitor) 40 mg HS PO ; Start 06/12/18 at 21:00 Ergocalciferol (Vitamin D2) 50,000 unit WEEKLY PO ; Start 06/12/18 at 09:30 Hydralazine HCl (Apresoline) 50 mg BID PO ; Start 06/12/18 at 09:30 Isosorbide Mononitrate (Imdur) 30 mg DAILY PO ; Start 06/12/18 at 09:30 Metoprolol Succinate (Toprol Xl) 50 mg DAILY PO ; Start 06/12/18 at 09:30 Active Scripts Active Reported Potassium Chloride 10 Meq Tab.sr.24h 10 Meq PO DAILY Vitamin D2 (Ergocalciferol (Vitamin D2)) 50,000 Unit Capsule 50,000 Unit PO WEEKLY Torsemide 20 Mg Tablet 1 Tab PO BID Isosorbide Mononitrate Er (Isosorbide Mononitrate) 60 Mg Tab.er.24h 1 Tab PO DAILY Hydralazine Hcl 50 Mg Tablet 1 Tab PO BID Levemir (Insulin Detemir) 100 Unit/1 Ml Vial 10 Unit SQ QHS Novolog Flexpen (Insulin Aspart) 100 Unit/1 Ml Insuln.pen 10 Unit SQ TIDAC Metolazone 2.5 Mg Tablet 5 Mg PO DAILY Toprol Xl (Metoprolol Succinate) 50 Mg Tab.er.24h 1 Tab PO DAILY Amlodipine Besylate 5 Mg Tablet 5 Mg PO DAILY Atorvastatin Calcium 40 Mg Tablet 1 Tab PO DAILY Allergies Allergies: Coded Allergies: Penicillins (Verified Allergy, Intermediate, 03/16/18) Sulfa (Sulfonamide Antibiotics) (Verified Allergy, Intermediate, 03/16/18) ROS General: YES: Fatigue, Malaise PSYCHOLOGICAL ROS: YES: Anxiety, Depression Eyes: Yes Decreased vision HEENT: YES: Heacaches Respiratory: YES: Cough Cardiovascular: yes Palpitations Gastrointestinal: Yes Nausea, Yes Constipation Genitourinary: YES Other (NOCTURIA) Musculoskeletal: Yes Muscular Weakness Neurological: Yes Weakness Skin: Yes Dry Skin Physical Exam General: Alert, Oriented X3, Cooperative, No acute distress HEENT: Atraumatic, PERRLA, EOMI, Mucous membr. moist/pink Lungs: Clear to auscultation, Normal air movement Heart: Regular rate Abdomen: Normal bowel sounds, Soft, No tenderness Extremities: No clubbing, No cyanosis, No edema, Normal pulses Skin: No rashes, No significant lesion Neuro: Normal gait, Normal speech, Cranial nerves 3-12 NL Psych/Mental Status: Mental status NL, Mood NL MUSCULOSKELETAL: No joint tenderness, No deformity, No swelling Vitals VITALS Vital Signs Date Time Temp Pulse Resp B/P (MAP) Pulse Ox O2 Delivery O2 Flow Rate FiO2 06/12/18 07:30 Nasal Cannula 2.0 06/12/18 07:22 98.6 74 16 150/68 (95) 92 98.6 Labs Labs Laboratory Tests Test 06/11/18 16:02 06/11/18 18:31 06/11/18 19:30 06/11/18 20:45 White Blood Count 4.4 x10^3/uL (4.0-11.0) Red Blood Count 3.20 x10^6/uL (3.50-5.40) Hemoglobin 9.2 g/dL (12.0-15.5) Hematocrit 26.3 % (36.0-47.0) Mean Corpuscular Volume 82 fL (79-100) Mean Corpuscular Hemoglobin 29 pg (25-35) Mean Corpuscular Hemoglobin Concent 35 g/dL (31-37) Red Cell Distribution Width 13.4 % (11.5-14.5) Platelet Count 224 x10^3/uL (140-400) Neutrophils (%) (Auto) 66 % (31-73) Lymphocytes (%) (Auto) 23 % (24-48) Monocytes (%) (Auto) 10 % (0-9) Eosinophils (%) (Auto) 0 % (0-3) Basophils (%) (Auto) 1 % (0-3) Neutrophils # (Auto) 2.9 x10^3uL (1.8-7.7) Lymphocytes # (Auto) 1.0 x10^3/uL (1.0-4.8) Monocytes # (Auto) 0.4 x10^3/uL (0.0-1.1) Eosinophils # (Auto) 0.0 x10^3/uL (0.0-0.7) Basophils # (Auto) 0.0 x10^3/uL (0.0-0.2) Prothrombin Time 14.2 SEC (11.7-14.0) Prothromb Time International Ratio 1.1 (0.8-1.1) Activated Partial Thromboplast Time 43 SEC (24-38) Sodium Level 134 mmol/L (136-145) Potassium Level 3.4 mmol/L (3.5-5.1) Chloride Level 98 mmol/L (98-107) Carbon Dioxide Level 20 mmol/L (21-32) Anion Gap 16 (6-14) Blood Urea Nitrogen 55 mg/dL (7-20) Creatinine 4.8 mg/dL (0.6-1.0) Estimated GFR (Cockcroft-Gault) 9.5 BUN/Creatinine Ratio 11 (6-20) Glucose Level 301 mg/dL (70-99) Calcium Level 8.8 mg/dL (8.5-10.1) Magnesium Level 2.0 mg/dL (1.8-2.4) Total Bilirubin 0.3 mg/dL (0.2-1.0) Aspartate Amino Transf (AST/SGOT) 29 U/L (15-37) Alanine Aminotransferase (ALT/SGPT) 22 U/L (14-59) Alkaline Phosphatase 112 U/L (46-116) Creatine Kinase 234 U/L (26-192) Creatine Kinase MB (Mass) 1.2 ng/mL (0.0-3.6) Creatine Kinase MB Relative Index 0.5 % (0-4) Troponin I Quantitative 0.315 ng/mL (0.000-0.055) 0.478 ng/mL (0.000-0.055) Total Protein 6.8 g/dL (6.4-8.2) Albumin 2.3 g/dL (3.4-5.0) Albumin/Globulin Ratio 0.5 (1.0-1.7) Lipase 204 U/L (73-393) Glucose (Fingerstick) 201 mg/dL (70-99) 213 mg/dL (70-99) Test 06/12/18 00:01 06/12/18 07:24 Troponin I Quantitative 0.447 ng/mL (0.000-0.055) Glucose (Fingerstick) 120 mg/dL (70-99) Laboratory Tests Test 06/11/18 16:02 06/11/18 18:31 06/11/18 19:30 06/11/18 20:45 White Blood Count 4.4 x10^3/uL (4.0-11.0) Red Blood Count 3.20 x10^6/uL (3.50-5.40) Hemoglobin 9.2 g/dL (12.0-15.5) Hematocrit 26.3 % (36.0-47.0) Mean Corpuscular Volume 82 fL (79-100) Mean Corpuscular Hemoglobin 29 pg (25-35) Mean Corpuscular Hemoglobin Concent 35 g/dL (31-37) Red Cell Distribution Width 13.4 % (11.5-14.5) Platelet Count 224 x10^3/uL (140-400) Neutrophils (%) (Auto) 66 % (31-73) Lymphocytes (%) (Auto) 23 % (24-48) Monocytes (%) (Auto) 10 % (0-9) Eosinophils (%) (Auto) 0 % (0-3) Basophils (%) (Auto) 1 % (0-3) Neutrophils # (Auto) 2.9 x10^3uL (1.8-7.7) Lymphocytes # (Auto) 1.0 x10^3/uL (1.0-4.8) Monocytes # (Auto) 0.4 x10^3/uL (0.0-1.1) Eosinophils # (Auto) 0.0 x10^3/uL (0.0-0.7) Basophils # (Auto) 0.0 x10^3/uL (0.0-0.2) Prothrombin Time 14.2 SEC (11.7-14.0) Prothromb Time International Ratio 1.1 (0.8-1.1) Activated Partial Thromboplast Time 43 SEC (24-38) Sodium Level 134 mmol/L (136-145) Potassium Level 3.4 mmol/L (3.5-5.1) Chloride Level 98 mmol/L (98-107) Carbon Dioxide Level 20 mmol/L (21-32) Anion Gap 16 (6-14) Blood Urea Nitrogen 55 mg/dL (7-20) Creatinine 4.8 mg/dL (0.6-1.0) Estimated GFR (Cockcroft-Gault) 9.5 BUN/Creatinine Ratio 11 (6-20) Glucose Level 301 mg/dL (70-99) Calcium Level 8.8 mg/dL (8.5-10.1) Magnesium Level 2.0 mg/dL (1.8-2.4) Total Bilirubin 0.3 mg/dL (0.2-1.0) Aspartate Amino Transf (AST/SGOT) 29 U/L (15-37) Alanine Aminotransferase (ALT/SGPT) 22 U/L (14-59) Alkaline Phosphatase 112 U/L (46-116) Creatine Kinase 234 U/L (26-192) Creatine Kinase MB (Mass) 1.2 ng/mL (0.0-3.6) Creatine Kinase MB Relative Index 0.5 % (0-4) Troponin I Quantitative 0.315 ng/mL (0.000-0.055) 0.478 ng/mL (0.000-0.055) Total Protein 6.8 g/dL (6.4-8.2) Albumin 2.3 g/dL (3.4-5.0) Albumin/Globulin Ratio 0.5 (1.0-1.7) Lipase 204 U/L (73-393) Glucose (Fingerstick) 201 mg/dL (70-99) 213 mg/dL (70-99) Test 06/12/18 00:01 06/12/18 07:24 Troponin I Quantitative 0.447 ng/mL (0.000-0.055) Glucose (Fingerstick) 120 mg/dL (70-99) Assessment/Plan Assessment/Plan IMP AFIB RVR HYPOKALEMIA CKD STAGE 4-CR OF ABOUT 4.5 AT BASELINE NEPHROTIC SYNDROME HX-IMPROVED DM II HTN ANEMIA NON COMPLIANCE DUE TO NO INSURANCE COVERAGE MET ACIDOSIS PLAN ORAL NAHCO3 REPLACE K, CHECK MAG CHECK IRON 24 HR URINE STUDY [facility] HOME MEDS WILL HAVE SW SEE PT TO SEE IF SHE CAN GET SOME ASSISTANCE FOR MEDS ETC CARDIOLOGY EVALUATION NO UREMIC SYMPTOMS SO NO PLANS FOR HD CECI PICHARDO MD Jun 12, 2018 10:39
[2018-06-12] MEDS ORDERED: ACETAMINOPHEN 325 MG TABLET. PO PRN (11:00)
--- NOTE | 2018-06-12 11:11 | PDOC ---
Provider Note Provider Note Patient seen. History and Physical dictated. See dictation#[id number] ANNE MARIE TAYLOR MD Jun 12, 2018 11:11
[2018-06-12 11:14] LABS: CALCIUM 8.3 mg/dL (8.5-10.1); CREATININE 4.6 mg/dL (0.6-1.0); POTASSIUM 3.4 mmol/L (3.5-5.1)
[2018-06-12 11:15] VITALS: BP 147/71
--- NOTE | 2018-06-12 11:33 | HP ---
ADMIT DATE: 06/11/2018 ADMITTING PHYSICIAN: Serena Colon MD. HISTORY OF PRESENT ILLNESS: This 52-year-old female started having a cough and congestion on Wednesday. She denied any fever or chills. She had some mucus production, but not excessive. However, on and Wednesday, she started having nausea and also vomited. She was supposed to come to the office on Wednesday for her cough and congestion, but the office got canceled because of the weather. Yesterday, she woke up and was feeling worse and because of that, she came to the Emergency Room. The patient has had some episodes of dyspnea. She also had some dizziness yesterday. In the Emergency Room, she was noted to have creatinine of 4.8 and BUN of 55 and was noted to be in atrial fibrillation with rapid ventricular response that was new. The patient was started on Cardizem drip and admitted for further evaluation and management. The patient was last admitted here in 08/2016 and at that time, she was noted to have nephrotic syndrome. Her creatinine then was 2.7. She has seen Dr. Soto before and her nephrotic syndrome resulted in baseline creatinine of 4.5. Previously, she used to lose about 10 grams of protein per day, but with ARB treatment, she was losing only about 2.5 grams per day. However, she lost her insurance and she has not been following up with the physicians nor taking her medications. REVIEW OF SYSTEMS: At present time, the patient does not have any nausea or vomiting this morning. She denies any fever or chills. Cough and congestion are somewhat better. She denies any nausea or vomiting this morning. She denies any constipation. She did have diarrhea day before yesterday. She denies any bleeding. She denies any chest pains or palpitations. Other systems reviewed and are negative. PAST MEDICAL HISTORY: The patient is known to have history of diabetes, hypertension, hyperlipidemia, urinary tract infection, anemia. PAST SURGICAL HISTORY: The patient had hysterectomy for excessive menstrual bleeding. ALLERGIES: THE PATIENT IS ALLERGIC TO PENICILLIN, SULFA CAUSES RASH. MEDICATIONS: Reviewed. Likely that she is not taking medications currently, as she does not have insurance. SOCIAL HISTORY: No history of smoking, alcoholism or drug abuse. FAMILY HISTORY: Parents had diabetes and father has heart disease. PHYSICAL EXAMINATION: GENERAL: The patient is a middle-aged female who is alert, oriented x 3 and not in acute distress. VITAL SIGNS: Temperature 98.6, pulse 74 per minute, respirations 16 per minute, blood pressure 150/68 mmHg. EYES: Pupils reacting to light. Conjunctivae pink. Sclerae white. HENT: Mild congestion of throat. NECK: Supple. JVP normal. No thyromegaly. Trachea midline. LUNGS: Occasional rhonchi. CARDIOVASCULAR SYSTEM: S1, S2 regular. ABDOMEN: Soft, nontender, no guarding, no rigidity. Bowel sounds present. EXTREMITIES: No edema, no cyanosis, no calf tenderness. CENTRAL NERVOUS SYSTEM: Alert and oriented, moves all extremities. No acute changes. LABORATORY FINDINGS: Sodium 134, potassium 3.4, BUN 55, creatinine is 4.8, CO2 is 20, glucose 301, calcium 8.8. CK 234. Troponin 0.315, 0.478 and 0.447. Glucose 301, 201, 213, 120. Albumin is 2.3, total protein 6.8, lipase 204. INR 1.1. WBC count 4.4, hemoglobin 9.2, platelet count is 224,000. Chest x-ray shows no acute cardiopulmonary disease. IMPRESSION: 1. Atrial fibrillation with rapid ventricular response. 2. Nephrotic syndrome. 3. Chronic kidney disease, stage 4. 4. Diabetes mellitus type 2, not controlled. 5. Hypertension. 6. Hypokalemia. 7. Metabolic acidosis. 8. Anemia. 9. Noncompliance. PLAN: Replace potassium. The patient has been given IV fluids in the Emergency Room. Start Aranesp, check iron level. Started on sodium bicarbonate. Consultations have been obtained with Dr. Soto for Nephrology evaluation and management and Dr. Rouse for Cardiology evaluation and management. I will resume home medications. The patient is currently on IV Cardizem. She is also n.p.o., so once she is not n.p.o., we will start sliding scale insulin. Continue IV Cardizem drip. For details, please review the orders. I will also order a flu screen. I will not use any inhalers at this time because of the atrial fibrillation. She has occasional rhonchi. For details, please review the orders. ANNE MARIE TAYLOR MD DR: IVIS/jamel JOB#: [id number] / [id number] SERENA Sanon MD
[2018-06-12] MEDS: METOPROLOL SUCC 24HR ER 50 MG TAB.ER.24H. PO SCH (12:58)
[2018-06-12] MEDS: ISOSORBIDE MONONITRATE ER 30 MG TAB.ER.24H PO SCH (12:58)
[2018-06-12] MEDS: amLODIPine BESYLATE 5 MG TABLET PO SCH (12:59)
[2018-06-12 13:29] LABS: INFLUENZA A PATIENT POSITIVE (NEGATIVE)
[2018-06-12 13:30] LABS: INFLUENZA B PATIENT NEGATIVE (NEGATIVE)
[2018-06-12] MEDS ORDERED: OSELTAMIVIR 30 MG CAPSULE PO ONE (13:45)
[2018-06-12 15:10] VITALS: BP 123/58
[2018-06-12 19:50] VITALS: BP 106/53
[2018-06-12] MEDS ORDERED: DARBEPOETIN ALFA 60 MCG/0.3 ML DISP.SYRIN. SQ SCH (21:00)
[2018-06-12] MEDS: ATORVASTATIN CALCIUM 40 MG TABLET. PO SCH (21:47)
[2018-06-12 23:10] VITALS: BP 127/58
[2018-06-13 03:25] VITALS: BP 140/65
[2018-06-13 04:50] LABS: BASO % 0 % (0-3); EOS % 0 % (0-3); HEMATOCRIT 22.2 % (36.0-47.0); HEMOGLOBIN 7.7 g/dL (12.0-15.5); LYMPH # 1.3 x10^3/uL (1.0-4.8); LYMPH % 29 % (24-48); MEAN CORPUSCULAR HEMOGLOBIN 29 pg (25-35); MEAN CORPUSCULAR HGB CONC 35 g/dL (31-37); MEAN CORPUSCULAR VOLUME 82 fL (79-100); MONO # 0.4 x10^3/uL (0.0-1.1); MONO % 8 % (0-9); NEUT # 2.9 x10^3uL (1.8-7.7); NEUT % 63 % (31-73); PLATELET COUNT 184 x10^3/uL (140-400); RED BLOOD COUNT 2.69 x10^6/uL (3.50-5.40); RED CELL DISTRIBUTION WIDTH 13.5 % (11.5-14.5); WHITE BLOOD COUNT 4.7 x10^3/uL (4.0-11.0)
[2018-06-13 05:20] LABS: ALBUMIN 2.3 g/dL (3.4-5.0); ALBUMIN/GLOBULIN RATIO 0.6 (1.0-1.7); CALCIUM 7.7 mg/dL (8.5-10.1); CREATININE 5.9 mg/dL (0.6-1.0); GFR 7.5; PHOSPHORUS 6.1 mg/dL (2.6-4.7); POTASSIUM 3.5 mmol/L (3.5-5.1); TOTAL BILIRUBIN 0.2 mg/dL (0.2-1.0); TOTAL PROTEIN 6.4 g/dL (6.4-8.2)
[2018-06-13 07:00] VITALS: BP 134/65
--- NOTE | 2018-06-13 08:46 | NUR ---
IP: Pt is influenza + requiring droplet precautions for 5 days and 24 hours without a fever, whichever is longest.
[2018-06-13] MEDS: amLODIPine BESYLATE 5 MG TABLET PO SCH (08:58)
[2018-06-13] MEDS: METOPROLOL SUCC 24HR ER 50 MG TAB.ER.24H. PO SCH (08:58)
[2018-06-13] MEDS: ISOSORBIDE MONONITRATE ER 30 MG TAB.ER.24H PO SCH (08:59)
[2018-06-13] MEDS: INSULIN LISPRO 300 UNITS/3 ML INSULN.PEN. SQ SCH ×3 (09:05→16:30)
--- NOTE | 2018-06-13 09:35 | PDOC ---
PROGRESS NOTES Subjective Subjective feeling better today Objective Objective Vital Signs Date Time Temp Pulse Resp B/P (MAP) Pulse Ox O2 Delivery O2 Flow Rate FiO2 06/13/18 08:59 71 134/65 06/13/18 07:45 Nasal Cannula 2.0 06/13/18 07:00 98.0 20 92 98.0 Intake and Output 06/13/18 07:00 Intake Total 800 ml Output Total 350 ml Balance 450 ml Intake Oral 800 ml Output Urine Total 350 ml # Voids 1 # Bowel Movements 1 Physical Exam Abdomen: Normal bowel sounds, Soft, No tenderness Heart: Regular rate Extremities: No clubbing, No cyanosis, No edema, Normal pulses General: Alert, Oriented X3, Cooperative, No acute distress HEENT: Atraumatic, PERRLA, EOMI, Mucous membr. moist/pink Lungs: Normal air movement, Other (crackes inbases) MUSCULOSKELETAL: No joint tenderness, No deformity, No swelling Neuro: Normal gait, Normal speech, Cranial nerves 3-12 NL Psych/Mental Status: Mental status NL, Mood NL Skin: No rashes, No significant lesion Diagnosis Problem List Problems Medical Problems: (1) Atrial fibrillation with RVR Status: Acute (2) Elevated troponin Status: Acute (3) Hyperglycemia Status: Acute Assessment Assessment Problems Medical Problems: (1) Atrial fibrillation with RVR Status: Acute (2) Elevated troponin Status: Acute (3) Hyperglycemia Status: Acute IMPRESSION:Influenza A lung infection 1. Episodic Atrial fibrillation with rapid ventricular response resolved. 2. Nephrotic syndrome. 3. Chronic kidney disease, stage 4-5. 4. Diabetes mellitus type 2, not controlled. 5. Hypertension. 6. Hypokalemia. 7. Metabolic acidosis. 8. Anemia due to CRF,hb 7.9 9. Noncompliance. 10 VT type 2,elevated tropnin due to demand ischemia PLAN: 24 hour urine in progress. Tamiflu for influenza. social work consult. monitor Hb, will need Aranesp shot. Replace potassium. The patient has been given IV fluids in the Emergency Room. Start Aranesp, check iron level. Started on sodium bicarbonate. Consultations have been obtained with Dr. Soto for Nephrology evaluation and management and Dr. Rouse for Cardiology evaluation and management. I will resume home medications. The patient is currently on IV Cardizem. She is also n.p.o., so once she is not n.p.o., we will start sliding scale insulin. Continue IV Cardizem drip. For details, please review the orders. I will also order a flu screen. I will not use any inhalers at this time because of the atrial fibrillation. She has occasional rhonchi. Plan Plan of Care Problems Medical Problems: (1) Atrial fibrillation with RVR Status: Acute (2) Elevated troponin Status: Acute (3) Hyperglycemia Status: Acute Comment Review of Relevant I have reviewed the following items allen (where applicable) has been applied. Labs Laboratory Tests Test 06/12/18 11:29 06/12/18 11:45 06/12/18 17:26 06/12/18 20:39 Glucose (Fingerstick) 122 mg/dL (70-99) 136 mg/dL (70-99) 169 mg/dL (70-99) Influenza Type A Antigen Positive (NEGATIVE) Influenza Type B Antigen Negative (NEGATIVE) Test 06/13/18 03:50 06/13/18 07:21 White Blood Count 4.7 x10^3/uL (4.0-11.0) Red Blood Count 2.69 x10^6/uL (3.50-5.40) Hemoglobin 7.7 g/dL (12.0-15.5) Hematocrit 22.2 % (36.0-47.0) Mean Corpuscular Volume 82 fL (79-100) Mean Corpuscular Hemoglobin 29 pg (25-35) Mean Corpuscular Hemoglobin Concent 35 g/dL (31-37) Red Cell Distribution Width 13.5 % (11.5-14.5) Platelet Count 184 x10^3/uL (140-400) Neutrophils (%) (Auto) 63 % (31-73) Lymphocytes (%) (Auto) 29 % (24-48) Monocytes (%) (Auto) 8 % (0-9) Eosinophils (%) (Auto) 0 % (0-3) Basophils (%) (Auto) 0 % (0-3) Neutrophils # (Auto) 2.9 x10^3uL (1.8-7.7) Lymphocytes # (Auto) 1.3 x10^3/uL (1.0-4.8) Monocytes # (Auto) 0.4 x10^3/uL (0.0-1.1) Eosinophils # (Auto) 0.0 x10^3/uL (0.0-0.7) Basophils # (Auto) 0.0 x10^3/uL (0.0-0.2) Sodium Level 135 mmol/L (136-145) Potassium Level 3.5 mmol/L (3.5-5.1) Chloride Level 100 mmol/L (98-107) Carbon Dioxide Level 19 mmol/L (21-32) Anion Gap 16 (6-14) Blood Urea Nitrogen 59 mg/dL (7-20) Creatinine 5.9 mg/dL (0.6-1.0) Estimated GFR (Cockcroft-Gault) 7.5 BUN/Creatinine Ratio 10 (6-20) Glucose Level 140 mg/dL (70-99) Calcium Level 7.7 mg/dL (8.5-10.1) Phosphorus Level 6.1 mg/dL (2.6-4.7) Magnesium Level 2.0 mg/dL (1.8-2.4) Iron Level 24 ug/dL (50-170) Total Iron Binding Capacity 161 ug/dL (250-450) Iron Saturation 15 % (15-34) Total Bilirubin 0.2 mg/dL (0.2-1.0) Aspartate Amino Transf (AST/SGOT) 9 U/L (15-37) Alanine Aminotransferase (ALT/SGPT) 12 U/L (14-59) Alkaline Phosphatase 90 U/L (46-116) Total Protein 6.4 g/dL (6.4-8.2) Albumin 2.3 g/dL (3.4-5.0) Albumin/Globulin Ratio 0.6 (1.0-1.7) Glucose (Fingerstick) 161 mg/dL (70-99) Medications Current Medications Acetaminophen (Tylenol) 650 mg PRN Q6HRS PRN PO MILD PAIN / TEMP; Start at 11:00 Atorvastatin Calcium (Lipitor) 40 mg HS PO Last administered on 06/12/18at 21:47 ; Start 06/12/18 at 21:00 Darbepoetin Aman (Aranesp) 60 mcg WEEKLYHS SQ Last administered on 06/12/18at 21 :49; Start 06/12/18 at 21:00 Insulin Human Lispro (HumaLOG) 0-8 UNITS TIDAC SQ Last administered on at 09:05; Start 06/12/18 at 11:30 Ondansetron HCl (Zofran) 4 mg PRN Q6HRS PRN IV NAUSEA/VOMITING; Start 06/12/18 at 11:00 Oseltamivir Phosphate (Tamiflu) 30 mg ONCE ONCE PO Last administered on at 13:54; Start 06/12/18 at 13:45; Stop 06/12/18 at 13:46; Status DC Oseltamivir Phosphate (Tamiflu) 30 mg QMWF@1600 PO ; Start 06/13/18 at 16:00; Stop 06/15/18 at 17:00 Potassium Chloride (Klor-Con) 20 meq 1X ONCE PO Last administered on at 12:58; Start 06/12/18 at 10:30; Stop 06/12/18 at 10:32; Status DC Vitals/I & O Vital Sign - Last 24 Hours 06/12/18 06/12/18 06/12/18 06/12/18 11:15 12:58 12:58 12:58 Temp 98.5 98.5 Pulse 68 68 68 68 Resp 10 B/P (MAP) 147/71 (96) 147/71 147/71 147/71 Pulse Ox 96 O2 Delivery Nasal Cannula O2 Flow Rate 2.0 06/12/18 06/12/18 06/12/18 06/12/18 12:59 15:10 19:50 20:00 Temp 98.6 98.5 98.6 98.5 Pulse 68 69 65 Resp 16 20 B/P (MAP) 147/71 123/58 (79) 106/53 (70) Pulse Ox 96 95 O2 Delivery Nasal Cannula Nasal Cannula Nasal Cannula O2 Flow Rate 2.0 2.0 2.0 06/12/18 06/12/18 06/12/18 06/13/18 21:47 23:10 23:20 03:25 Temp 98.3 98.8 98.3 98.8 Pulse 65 68 74 Resp 22 20 B/P (MAP) 106/53 127/58 (81) 140/65 (90) Pulse Ox 79 94 94 O2 Delivery Room Air Nasal Cannula Nasal Cannula O2 Flow Rate 2.0 2.0 06/13/18 06/13/18 06/13/18 06/13/18 07:00 07:45 08:58 08:58 Temp 98.0 98.0 Pulse 71 71 71 Resp 20 B/P (MAP) 134/65 (88) 134/65 134/65 Pulse Ox 92 O2 Delivery Nasal Cannula Nasal Cannula O2 Flow Rate 2.0 2.0 06/13/18 06/13/18 08:59 08:59 Pulse 71 71 B/P (MAP) 134/65 134/65 Intake and Output 06/12/18 06/12/18 06/13/18 15:00 23:00 07:00 Intake Total 0 ml 300 ml 500 ml Output Total 100 ml 150 ml 100 ml Balance -100 ml 150 ml 400 ml YARELIS FONTENOT MD Jun 13, 2018 09:35
--- NOTE | 2018-06-13 10:39 | PDOC ---
PAUL MARTIN TRAFFIC SIGNAL MECHANIC 06/13/18 1039: CARDIO Progress Notes Date and Time Date of Service 06/13/18 Time of Evaluation 1038 Subjective Subjective: No Chest Pain, No shortness of breath, Other (c/o cough) Vitals Vitals Vital Signs Date Time Temp Pulse Resp B/P (MAP) Pulse Ox O2 Delivery O2 Flow Rate FiO2 06/13/18 08:59 71 134/65 06/13/18 07:45 Nasal Cannula 2.0 06/13/18 07:00 98.0 20 92 98.0 Weight Weight [ ] Input and Output Intake and Output Intake and Output 06/13/18 07:00 Intake Total 800 ml Output Total 350 ml Balance 450 ml Intake Oral 800 ml Output Urine Total 350 ml # Voids 1 # Bowel Movements 1 Laboratory Labs Laboratory Tests Test 06/12/18 11:29 06/12/18 11:45 06/12/18 17:26 06/12/18 20:39 Glucose (Fingerstick) 122 mg/dL (70-99) 136 mg/dL (70-99) 169 mg/dL (70-99) Influenza Type A Antigen Positive (NEGATIVE) Influenza Type B Antigen Negative (NEGATIVE) Test 06/13/18 03:50 06/13/18 07:21 White Blood Count 4.7 x10^3/uL (4.0-11.0) Red Blood Count 2.69 x10^6/uL (3.50-5.40) Hemoglobin 7.7 g/dL (12.0-15.5) Hematocrit 22.2 % (36.0-47.0) Mean Corpuscular Volume 82 fL (79-100) Mean Corpuscular Hemoglobin 29 pg (25-35) Mean Corpuscular Hemoglobin Concent 35 g/dL (31-37) Red Cell Distribution Width 13.5 % (11.5-14.5) Platelet Count 184 x10^3/uL (140-400) Neutrophils (%) (Auto) 63 % (31-73) Lymphocytes (%) (Auto) 29 % (24-48) Monocytes (%) (Auto) 8 % (0-9) Eosinophils (%) (Auto) 0 % (0-3) Basophils (%) (Auto) 0 % (0-3) Neutrophils # (Auto) 2.9 x10^3uL (1.8-7.7) Lymphocytes # (Auto) 1.3 x10^3/uL (1.0-4.8) Monocytes # (Auto) 0.4 x10^3/uL (0.0-1.1) Eosinophils # (Auto) 0.0 x10^3/uL (0.0-0.7) Basophils # (Auto) 0.0 x10^3/uL (0.0-0.2) Sodium Level 135 mmol/L (136-145) Potassium Level 3.5 mmol/L (3.5-5.1) Chloride Level 100 mmol/L (98-107) Carbon Dioxide Level 19 mmol/L (21-32) Anion Gap 16 (6-14) Blood Urea Nitrogen 59 mg/dL (7-20) Creatinine 5.9 mg/dL (0.6-1.0) Estimated GFR (Cockcroft-Gault) 7.5 BUN/Creatinine Ratio 10 (6-20) Glucose Level 140 mg/dL (70-99) Calcium Level 7.7 mg/dL (8.5-10.1) Phosphorus Level 6.1 mg/dL (2.6-4.7) Magnesium Level 2.0 mg/dL (1.8-2.4) Iron Level 24 ug/dL (50-170) Total Iron Binding Capacity 161 ug/dL (250-450) Iron Saturation 15 % (15-34) Total Bilirubin 0.2 mg/dL (0.2-1.0) Aspartate Amino Transf (AST/SGOT) 9 U/L (15-37) Alanine Aminotransferase (ALT/SGPT) 12 U/L (14-59) Alkaline Phosphatase 90 U/L (46-116) Total Protein 6.4 g/dL (6.4-8.2) Albumin 2.3 g/dL (3.4-5.0) Albumin/Globulin Ratio 0.6 (1.0-1.7) Glucose (Fingerstick) 161 mg/dL (70-99) Physical Exam HEENT: Neck Supple W Full Motion Chest: Symmetric LUNGS: Clear to Auscultation Heart: S1S2, RRR Abdomen: Soft N/T Extremities: No Edema Neurology: alert, oriented, follow commands Assessment Assessment 1. PAFIB; maintaining SR 2. NSTEMI; peak 0.478. Most probably type II, demand ischemia in the setting of renal failure and influenza 3. Probable diastolic HF; echo today. 4. Hypertension; controlled 5. Hyperlipidemia; statin 6. Influenza A; Tamiflu 7. CKD IV; 24 hr urine in progress 8. Anemia of chronic disease Recommendations SW for assistance with meds/insurance Continue metoprolol Add ASA for stroke prevention Outpatient event monitor to note arrhythmia burden if patient is able to afford/ obtain insurance coverage. Supportive care LELE FRY MD 06/13/18 1800: CARDIO Progress Notes Plan Plan Case discussed with nurse practitioner. Continue current medical therapy. She would be a poor candidate this time for anticoagulation in the event she needs any further intervention from her CKD perspective. With her CHADS score being 3, would merit penitentiary anticoagulation but she currently does not have insurance, await social work input and consider initiation on anticoagulation if cleared by nephrology. Thanks. PAUL MARTIN APRN Jun 13, 2018 10:39 LELE FRY MD Jun 13, 2018 18:00
[2018-06-13 11:00] VITALS: BP 137/65
[2018-06-13] MEDS ORDERED: guaiFENesin DM 200MG/20MG 10 ML SYRUP PO PRN (11:15)
[2018-06-13] MEDS ORDERED: ALBUTEROL SULFATE 2.5 MG/3 ML NEBU. NEB PRN (11:30)
--- NOTE | 2018-06-13 11:39 | PDOC ---
SUBJECTIVE ROS No Complaints currently OBJECTIVE Vital Signs Vital Signs Date Time Temp Pulse Resp B/P (MAP) Pulse Ox O2 Delivery O2 Flow Rate FiO2 06/13/18 11:00 98.0 70 20 137/65 (89) 93 Nasal Cannula 2.0 98.0 I & 0 Intake and Output 06/13/18 07:00 Intake Total 800 ml Output Total 350 ml Balance 450 ml Intake Oral 800 ml Output Urine Total 350 ml # Voids 1 # Bowel Movements 1 PHYSICAL EXAM Physical Exam Gen- NAD HEEN: Om dry, On o2 by NC NECK: supple CVS: RRR , No rub RESP: CTA, No Acc. Muscle Use GI: BS + ve, NO Bruit, Non Tender, obese : No CVA tenderness, No Suprapubic Tenderness, No Martinez Ext- No edema DIAGNOSIS/ASSESSMENT Assessment & Plan KATJA - On CKD stage 4 Decreased UOP, Poor po intake Recommend IVF, Check UA, Renal US 24 ur for Clcr ongoing Likely will need HD, no Uremic symptoms currently CKD stage 4- baseline 4.5, now 5.[address] Soto as OP Stopped meds due to lack of insurance AFIB RVR- cardiology CxR normal Hypokalemia- normal K Replace as needed nephrotic Syndrome- improved to 2.5 gm Flu- On Tamiflu DM II HTN Anemia- On Aranesp Non compliance due to insurance coverage Metabolic acidosis On PO NaHCO3 3 COMMENT/RELEVANT DATA Meds Current Medications Medications (Trade) Dose Ordered Sig/Joshua Start Time Stop Time Status Last Admin Dose Admin Acetaminophen (Tylenol) 650 mg PRN Q6HRS PRN 06/12/18 11:00 Amlodipine Besylate (Norvasc) 5 mg DAILY 06/12/18 09:15 06/13/18 08:58 5 MG Aspirin (Devorah Aspirin) 325 mg 1X ONCE 06/11/18 16:45 06/11/18 16:46 DC 06/11/18 16:45 325 MG Atorvastatin Calcium (Lipitor) 40 mg HS 06/12/18 21:00 06/12/18 21:47 40 MG Darbepoetin Aman (Aranesp) 60 mcg WEEKLYHS 06/12/18 21:00 06/12/18 21:49 60 MCG Dextrose (Dextrose 50%-Water Syringe) 12.5 gm PRN Q15MIN PRN 06/11/18 17:00 Diltiazem HCl (Cardizem Iv Push) 10 mg 1X ONCE 06/11/18 16:45 06/11/18 16:46 DC 06/11/18 16:55 10 MG Diltiazem HCl 125 mg/Dextrose 125 ml @ 5 mls/hr 1X ONCE 06/11/18 16:45 06/12/18 17:44 DC 06/11/18 17:10 5 MLS/HR Ergocalciferol (Vitamin D2) 50,000 unit WEEKLY 06/12/18 09:30 06/12/18 12:59 50,000 UNIT Famotidine (Pepcid Vial) 20 mg 1X ONCE 06/11/18 16:15 06/11/18 16:17 DC 06/11/18 16:56 20 MG Hydralazine HCl (Apresoline) 50 mg BID 06/12/18 09:30 06/13/18 08:59 50 MG Insulin Human Lispro (HumaLOG) 0-8 UNITS TIDAC 06/12/18 11:30 06/13/18 09:05 2 UNITS Insulin Human Regular (HumuLIN R VIAL) 14 unit 1X ONCE 06/11/18 17:00 06/11/18 17:01 DC 06/11/18 17:01 14 UNIT Isosorbide Mononitrate (Imdur) 30 mg DAILY 06/12/18 09:30 06/13/18 08:59 30 MG Metoprolol Succinate (Toprol Xl) 50 mg DAILY 06/12/18 09:30 06/13/18 08:58 50 MG Ondansetron HCl (Zofran) 4 mg PRN Q6HRS PRN 06/12/18 11:00 Oseltamivir Phosphate (Tamiflu) 30 mg QMWF@1600 06/13/18 16:00 06/15/18 17:00 Potassium Chloride (Klor-Con) 20 meq 1X ONCE 06/12/18 10:30 06/12/18 10:32 DC 06/12/18 12:58 20 MEQ Sodium Chloride 1,000 ml @ 1,000 mls/hr 1X ONCE 06/11/18 16:15 06/11/18 17:14 DC 06/11/18 16:55 1,000 MLS/HR Lab Laboratory Tests Test 06/12/18 11:45 06/12/18 17:26 06/12/18 20:39 06/13/18 03:50 Influenza Type A Antigen Positive (NEGATIVE) Influenza Type B Antigen Negative (NEGATIVE) Glucose (Fingerstick) 136 mg/dL (70-99) 169 mg/dL (70-99) White Blood Count 4.7 x10^3/uL (4.0-11.0) Red Blood Count 2.69 x10^6/uL (3.50-5.40) Hemoglobin 7.7 g/dL (12.0-15.5) Hematocrit 22.2 % (36.0-47.0) Mean Corpuscular Volume 82 fL (79-100) Mean Corpuscular Hemoglobin 29 pg (25-35) Mean Corpuscular Hemoglobin Concent 35 g/dL (31-37) Red Cell Distribution Width 13.5 % (11.5-14.5) Platelet Count 184 x10^3/uL (140-400) Neutrophils (%) (Auto) 63 % (31-73) Lymphocytes (%) (Auto) 29 % (24-48) Monocytes (%) (Auto) 8 % (0-9) Eosinophils (%) (Auto) 0 % (0-3) Basophils (%) (Auto) 0 % (0-3) Neutrophils # (Auto) 2.9 x10^3uL (1.8-7.7) Lymphocytes # (Auto) 1.3 x10^3/uL (1.0-4.8) Monocytes # (Auto) 0.4 x10^3/uL (0.0-1.1) Eosinophils # (Auto) 0.0 x10^3/uL (0.0-0.7) Basophils # (Auto) 0.0 x10^3/uL (0.0-0.2) Sodium Level 135 mmol/L (136-145) Potassium Level 3.5 mmol/L (3.5-5.1) Chloride Level 100 mmol/L (98-107) Carbon Dioxide Level 19 mmol/L (21-32) Anion Gap 16 (6-14) Blood Urea Nitrogen 59 mg/dL (7-20) Creatinine 5.9 mg/dL (0.6-1.0) Estimated GFR (Cockcroft-Gault) 7.5 BUN/Creatinine Ratio 10 (6-20) Glucose Level 140 mg/dL (70-99) Calcium Level 7.7 mg/dL (8.5-10.1) Phosphorus Level 6.1 mg/dL (2.6-4.7) Magnesium Level 2.0 mg/dL (1.8-2.4) Iron Level 24 ug/dL (50-170) Total Iron Binding Capacity 161 ug/dL (250-450) Iron Saturation 15 % (15-34) Total Bilirubin 0.2 mg/dL (0.2-1.0) Aspartate Amino Transf (AST/SGOT) 9 U/L (15-37) Alanine Aminotransferase (ALT/SGPT) 12 U/L (14-59) Alkaline Phosphatase 90 U/L (46-116) Total Protein 6.4 g/dL (6.4-8.2) Albumin 2.3 g/dL (3.4-5.0) Albumin/Globulin Ratio 0.6 (1.0-1.7) Test 06/13/18 07:21 Glucose (Fingerstick) 161 mg/dL (70-99) Results All relevant outside records, renal labs, imaging studies, telemetry/EKG's were reviewed. HIMANSHU MCGOVERN MD Jun 13, 2018 11:39
[2018-06-13] MEDS: IPRATRPIUM/ALBUTEROL 0.5/2.5MG 3 ML NEBU. NEB SCH ×3 (12:00→19:39)
[2018-06-13] MEDS: IV NORMAL SALINE 1000ML BAG 1,000 ML IV SCH ×2 (12:17→22:56)
[2018-06-13] MEDS ORDERED: BENZONATATE 100 MG CAPSULE. PO PRN (12:45)
--- NOTE | 2018-06-13 13:15 | NUR ---
SS following for discharge planning. SS reviewed pt chart and spoke with pt's RN. Pt is self pay pt. No insurance. Pt is from home with spouse and currently requiring oxygen. Pt's RN reported that pt will most likely need dialysis when discharging. SS contacted Josselyn Ponce, [id number], with [facility] and notified her that pt will most likely require dialysis at discharge. [facility] to follow up with pt to discuss qualifications for Medicaid and disability.
--- NOTE | 2018-06-13 13:52 | EKG ---
[facility] [address] [place] [address] Test Date: 2018-06-11 Test Time: 16:35:03 Pat Name: DENNIS HAMMONDS Department: Room: [facility] 1 Gender: Flyer Repairer: : 1965 Requested By: SHELBY LEDBETTER Order Number: [id number] Reading MD: Asael Veliz Measurements Intervals [place] Rate: P: RI: QRS: QRSD: T: QT: QTc: Interpretive Statements ATRIAL FIBRILLATION WITH RVR LVH Electronically Signed On 06-15-2018 8:57:18 STRAIGHTEDGE MAN by Asael Veliz
--- NOTE | 2018-06-13 13:53 | EKG ---
[facility] [address] [place] [address] Test Date: 2018-06-11 Test Time: 15:57:12 Pat Name: DENNIS HAMMONDS Department: Room: [facility] [place] 1 Gender: Incident Response Engineer: : 1965 Requested By: SHELBY LEDBETTER Order Number: [id number] Reading MD: Asael Veliz Measurements Intervals [place] Rate: P: PA: QRS: QRSD: T: QT: QTc: Interpretive Statements Compared to ECG 09/13/2016 19:39:16 Sinus rhythm no longer present Electronically Signed On 06-15-2018 8:56:55 TIMBER SELECTOR by Asael Veliz
--- NOTE | 2018-06-13 14:00 | CONS ---
DATE OF CONSULTATION: ATTENDING PHYSICIAN: Dr. Ian Nixon. REASON FOR CONSULTATION: Influenza. HISTORY OF PRESENT ILLNESS: The patient is a 52-year-old obese patient who has history of nephrotic syndrome and CKD stage 4. She has no history of tobacco use or asthma. She was brought into the hospital with complaint of some shortness of breath and a cough. The patient was found to have influenza A. Her chest x-ray was clear. She does not have any significant shortness of breath at present. She has improving cough. No fever, no chills. No other constitutional symptoms. PAST MEDICAL HISTORY: Significant for history of hypertension, diabetes, hyperlipidemia, UTI, and anemia. PAST SURGICAL HISTORY: Hysterectomy. ALLERGIES: PENICILLIN. MEDICATIONS: Reviewed, as listed in the MRAD, including Tamiflu. REVIEW OF SYSTEMS: As discussed in my history of present illness. SOCIAL HISTORY: Nonsmoker. PHYSICAL EXAMINATION: VITAL SIGNS: Reviewed, afebrile, pulse ox 93% on 2 liters. NECK: Supple. LUNGS: Clear. CARDIOVASCULAR: Regular rate. ABDOMEN: Soft, obese. EXTREMITIES: With no pitting edema. LABORATORY DATA: Reviewed. BUN and creatinine 59 and 5.9. WBC 4.7, hemoglobin 7.7. IMPRESSION: 1. The patient with influenza A positive with a clear chest x-ray. 2. No significant history of tobacco use. 3. Atrial fibrillation with rapid ventricular response, being controlled per Cardiology. 4. Chronic kidney disease stage 4. 5. Nephrotic syndrome. RECOMMENDATIONS: 1. From a pulmonary standpoint, she is stable. Continue with the full course of Tamiflu. 2. P.r.n. bronchodilators. 3. From a pulmonary standpoint, I have no further recommendations and she could be discharged whenever other consultants have cleared her. I will be available for any further recommendations. Please call me for any questions. We will sign off for now. WINTER JOY MD DR: SHERI/jamel JOB#: [id number] / [id number]
--- NOTE | 2018-06-13 14:08 | RAD ---
AP chest, 06/13/2018: HISTORY: Cough, flu Comparison is made to a study from 06/11/2018. The heart is at the upper limits of normal in size. The pulmonary vascularity is normal. No pulmonary infiltrate is seen. There is no evidence of pleural fluid. IMPRESSION: No acute cardiopulmonary abnormality is detected. Electronically signed by: Jin Wong MD (06/13/2018 2:06 PM) [facility]
--- NOTE | 2018-06-13 14:08 | RAD ---
Renal ultrasound, 06/13/2018: HISTORY: Acute renal insufficiency and chronic kidney disease The right kidney measures 11.0 cm while in length while the left kidney measures 11.8 cm. There is no evidence of hydronephrosis or a renal mass. There is mild bilateral renal cortical scarring. The renal parenchymal echogenicity is within normal limits. Post voiding views of the bladder region show no significant retained urine in the bladder. IMPRESSION: 1. Minimal renal cortical scarring. 2. The kidneys are otherwise unremarkable. Electronically signed by: Jin Wong MD (06/13/2018 2:04 PM) [facility]
[2018-06-13 15:00] VITALS: BP 133/64
--- NOTE | 2018-06-13 15:41 | CARD ---
MR#: [id number] Date of Study: 06/13/2018 Ordering Physician: LELE FRY, Referring Physician: ANNE MARIE TAYLOR Tech: Juju Esposito JUAN LUIS APPROVED REPORT EXAM: Two-dimensional and M-mode echocardiogram with Doppler and color Doppler. Other Information Quality : Good INDICATION Atrial Fibrillation 2D DIMENSIONS RVDd3.0 (2.9-3.5cm)Left Atrium(2D)4.0 (1.6-4.0cm) IVSd1.3 (0.7-1.1cm)Aortic Root(2D)2.5 (2.0-3.7cm) LVDd5.1 (3.9-5.9cm)LVOT Diameter2.0 (1.8-2.4cm) PWd1.3 (0.7-1.1cm)LVDs3.2 (2.5-4.0cm) FS (%) 36.6 %SV82.1 ml LVEF(%)60.0 (>50%) Aortic Valve AoV Peak Bernardo.144.3cm/sAoV VTI30.5cm AO Peak GR.8.3mmHgLVOT Peak Bernardo.97.3cm/s AO Mean GR.6mmHgAVA (VMAX)2.10cm2 Mitral Valve MV E Tbzbrrvo183.2cm/sMV DECEL QTYO449dr MV A Imojsiuu86.1cm/sE/A Ratio1.6 Tricuspid Valve TR P. Gqdqggis525gi/sRAP SPBLNRFS0ssEo TR Peak Gr.43apXzCPIS13maVs Pulmonary Vein S1 Rhdeuhkp47.9cm/sD2 Mldbudya08.9cm/s LEFT VENTRICLE The left ventricle is normal size. There is mild concentric left ventricular hypertrophy. The left ve ntricular systolic function is normal and the ejection fraction is within normal range. The Ejection Fraction is 55-60%. There is normal LV segmental wall motion. The left ventricular diastolic function and filling is normal for age. RIGHT VENTRICLE The right ventricle is normal size. The right ventricular systolic function is normal. ATRIA The left atrium is mildly dilated. The right atrium size is normal. The interatrial septum is intact with no evidence for an atrial septal defect or patent foramen ovale as noted on 2-D or Doppler imagi ng. AORTIC VALVE The aortic valve is calcified but opens well. Doppler and Color Flow revealed no significant aortic r egurgitation. There is no significant aortic valvular stenosis. MITRAL VALVE The mitral valve is normal in structure and function. There is no evidence of mitral valve prolapse. There is no mitral valve stenosis. Doppler and Color-flow revealed mild mitral regurgitation. TRICUSPID VALVE The tricuspid valve is normal in structure and function. Doppler and Color Flow revealed trace tricus pid regurgitation. The PA pressure was estimated at 25 mmHg. There is no tricuspid valve stenosis. PULMONIC VALVE The pulmonary valve is normal in structure and function. Doppler and Color Flow revealed mild pulmoni c valvular regurgitation. There is no pulmonic valvular stenosis. GREAT VESSELS The aortic root is normal in size. The ascending aorta is normal in size. The IVC is normal in size a nd collapses >50% with inspiration. PERICARDIAL EFFUSION There is no evidence of significant pericardial effusion. Critical Notification Critical Value: No <Conclusion> The left ventricle is normal size. The left ventricular systolic function is normal and the ejection fraction is within normal range. The Ejection Fraction is 55-60%. There is mild concentric left ventricular hypertrophy. There is no significant aortic valvular stenosis. Doppler and Color Flow revealed no significant aortic regurgitation. Doppler and Color-flow revealed mild mitral regurgitation. Doppler and Color Flow revealed trace tricuspid regurgitation. The PA pressure was estimated at 25 mmHg. Signed by : Elmer Romero MD Electronically Approved : 06/13/2018 15:40:56
[2018-06-13] MEDS ORDERED: OSELTAMIVIR 30 MG CAPSULE PO SCH (16:00)
[2018-06-13] MEDS: ASPIRIN ENTERIC COATED 81 MG TABLET.DR. PO SCH (16:17)
[2018-06-13] MEDS: ONDANSETRON PF 4 MG/2 ML VIAL. IV PRN ×2 (16:29→22:57)
[2018-06-13 19:55] VITALS: BP 146/68
[2018-06-13 20:25] LABS: BILIRUBIN,URINE NEGATIVE (NEG); CLARITY,URINE CLEAR; COLOR,URINE YELLOW; NITRITE,URINE NEGATIVE (NEG); PROTEIN,URINE >=300 mg/dL (NEG-TRACE); UROBILINOGEN,URINE 0.2 mg/dL (0.2 mg/dL)
[2018-06-13 20:33] LABS: AMORPHOUS SEDIMENT,UR PRESENT /HPF; BACTERIA,URINE FEW /HPF (0-FEW); GRANULAR CASTS,URINE FEW /HPF; RBC,URINE 0 /HPF (0-2); SQUAMOUS EPITHELIAL CELL,UR MOD /LPF
[2018-06-13 22:50] VITALS: BP 128/60
[2018-06-13] MEDS: ATORVASTATIN CALCIUM 40 MG TABLET. PO SCH (22:55)
[2018-06-14] VITALS (9 sets, daily range): BP systolic 124–166; BP diastolic 51–68
[2018-06-14 04:30] LABS: BASO % 0 % (0-3); EOS % 0 % (0-3); LYMPH # 1.4 x10^3/uL (1.0-4.8); LYMPH % 33 % (24-48); MEAN CORPUSCULAR HEMOGLOBIN 29 pg (25-35); MEAN CORPUSCULAR HGB CONC 35 g/dL (31-37); MEAN CORPUSCULAR VOLUME 83 fL (79-100); MONO # 0.5 x10^3/uL (0.0-1.1); MONO % 11 % (0-9); NEUT # 2.3 x10^3uL (1.8-7.7); NEUT % 56 % (31-73); PLATELET COUNT 139 x10^3/uL (140-400); RED BLOOD COUNT 2.42 x10^6/uL (3.50-5.40); RED CELL DISTRIBUTION WIDTH 13.7 % (11.5-14.5); WHITE BLOOD COUNT 4.2 x10^3/uL (4.0-11.0)
[2018-06-14 04:41] LABS: ALBUMIN 2.2 g/dL (3.4-5.0); ALBUMIN/GLOBULIN RATIO 0.6 (1.0-1.7); CALCIUM 7.9 mg/dL (8.5-10.1); GFR 7.3; POTASSIUM 3.2 mmol/L (3.5-5.1); TOTAL BILIRUBIN 0.2 mg/dL (0.2-1.0)
[2018-06-14 04:52] LABS: HEMOGLOBIN 6.9 g/dL (12.0-15.5)
[2018-06-14] MEDS: ONDANSETRON PF 4 MG/2 ML VIAL. IV PRN ×2 (05:25→22:53)
[2018-06-14] MEDS: INSULIN LISPRO 300 UNITS/3 ML INSULN.PEN. SQ SCH ×3 (07:30→16:30)
[2018-06-14] MEDS: IPRATRPIUM/ALBUTEROL 0.5/2.5MG 3 ML NEBU. NEB SCH ×4 (08:07→19:39)
[2018-06-14] MEDS ORDERED: POTASSIUM CHLORIDE 20 MEQ TABLET.ER. PO ONE ×2 (08:45→17:30)
[2018-06-14 09:06] LABS: PROTHROMBIN TIME PATIENT 13.3 SEC (11.7-14.0)
--- NOTE | 2018-06-14 09:43 | PDOC ---
PROGRESS NOTES Subjective Subjective less wheezing today Objective Objective Vital Signs Date Time Temp Pulse Resp B/P (MAP) Pulse Ox O2 Delivery O2 Flow Rate FiO2 06/14/18 08:40 98.0 72 18 145/67 98.0 06/14/18 07:00 92 Nasal Cannula 2.0 Intake and Output 06/14/18 07:00 Intake Total 4100 ml Output Total 1700 ml Balance 2400 ml Intake Oral 2500 ml IV Total 1600 ml Output Urine Total 1350 ml Emesis 350 ml Physical Exam Abdomen: Normal bowel sounds, Soft, No tenderness Heart: Regular rate Extremities: No clubbing, No cyanosis, No edema, Normal pulses General: Alert, Oriented X3, Cooperative, No acute distress HEENT: Atraumatic, PERRLA, EOMI, Mucous membr. moist/pink Lungs: Normal air movement, Other (crackes inbases) MUSCULOSKELETAL: No joint tenderness, No deformity, No swelling Neuro: Normal gait, Normal speech, Cranial nerves 3-12 NL Psych/Mental Status: Mental status NL, Mood NL Skin: No rashes, No significant lesion Diagnosis Problem List Problems Medical Problems: (1) Atrial fibrillation with RVR Status: Acute (2) Elevated troponin Status: Acute (3) Hyperglycemia Status: Acute Assessment Assessment Problems Medical Problems: (1) Atrial fibrillation with RVR Status: Acute (2) Elevated troponin Status: Acute (3) Hyperglycemia Status: Acute IMPRESSION:Influenza A lung infection 1. Episodic Atrial fibrillation with rapid ventricular response resolved. 2. Nephrotic syndrome. 3. Chronic kidney disease, stage 4-5.cr 6.0 4. Diabetes mellitus type 2, not controlled. 5. Hypertension. 6. Hypokalemia. 7. Metabolic acidosis. 8. Anemia due to CRF,hb 6.9 9. Noncompliance. 10 NH type 2,elevated tropnin due to demand ischemia PLAN: Needs dialysis,spoke with renal transfuse hb 6.9 24 hour urine in progress. Tamiflu for influenza. social work consult. monitor Hb, will need Aranesp shot. possible uti , check urine c/s Echo good LVF. cxr -neg Plan Plan of Care Problems Medical Problems: (1) Atrial fibrillation with RVR Status: Acute (2) Elevated troponin Status: Acute (3) Hyperglycemia Status: Acute Comment Review of Relevant I have reviewed the following items allen (where applicable) has been applied. Labs Laboratory Tests Test 06/13/18 12:01 2/18/19 17:34 06/13/18 20:00 06/13/18 20:23 Glucose (Fingerstick) 201 mg/dL (70-99) 188 mg/dL (70-99) 166 mg/dL (70-99) Urine Collection Type Unknown Urine Color Yellow Urine Clarity Clear Urine pH 5.0 Urine Specific [place] 1.015 Urine Protein >=300 mg/dL (NEG-TRACE) Urine Glucose (UA) 250 mg/dL (NEG) Urine Ketones (Stick) Negative mg/dL (NEG) Urine Blood Negative (NEG) Urine Nitrite Negative (NEG) Urine Bilirubin Negative (NEG) Urine Urobilinogen Dipstick 0.2 mg/dL (0.2 mg/dL) Urine Leukocyte Esterase Small (NEG) Urine RBC 0 /HPF (0-2) Urine WBC 5-10 /HPF (0-4) Urine Squamous Epithelial Cells Mod /LPF Urine Amorphous Sediment Present /HPF Urine Bacteria Few /HPF (0-FEW) Urine Granular Casts Few /HPF Urine Mucus Slight /LPF Test 06/14/18 03:00 06/14/18 08:00 06/14/18 08:27 White Blood Count 4.2 x10^3/uL (4.0-11.0) Red Blood Count 2.42 x10^6/uL (3.50-5.40) Hemoglobin 6.9 g/dL (12.0-15.5) Hematocrit 20.0 % (36.0-47.0) Mean Corpuscular Volume 83 fL (79-100) Mean Corpuscular Hemoglobin 29 pg (25-35) Mean Corpuscular Hemoglobin Concent 35 g/dL (31-37) Red Cell Distribution Width 13.7 % (11.5-14.5) Platelet Count 139 x10^3/uL (140-400) Neutrophils (%) (Auto) 56 % (31-73) Lymphocytes (%) (Auto) 33 % (24-48) Monocytes (%) (Auto) 11 % (0-9) Eosinophils (%) (Auto) 0 % (0-3) Basophils (%) (Auto) 0 % (0-3) Neutrophils # (Auto) 2.3 x10^3uL (1.8-7.7) Lymphocytes # (Auto) 1.4 x10^3/uL (1.0-4.8) Monocytes # (Auto) 0.5 x10^3/uL (0.0-1.1) Eosinophils # (Auto) 0.0 x10^3/uL (0.0-0.7) Basophils # (Auto) 0.0 x10^3/uL (0.0-0.2) Sodium Level 135 mmol/L (136-145) Potassium Level 3.2 mmol/L (3.5-5.1) Chloride Level 100 mmol/L (98-107) Carbon Dioxide Level 21 mmol/L (21-32) Anion Gap 14 (6-14) Blood Urea Nitrogen 59 mg/dL (7-20) Creatinine 6.0 mg/dL (0.6-1.0) Estimated GFR (Cockcroft-Gault) 7.3 BUN/Creatinine Ratio 10 (6-20) Glucose Level 130 mg/dL (70-99) Calcium Level 7.9 mg/dL (8.5-10.1) Total Bilirubin 0.2 mg/dL (0.2-1.0) Aspartate Amino Transf (AST/SGOT) 17 U/L (15-37) Alanine Aminotransferase (ALT/SGPT) 14 U/L (14-59) Alkaline Phosphatase 78 U/L (46-116) Total Protein 6.0 g/dL (6.4-8.2) Albumin 2.2 g/dL (3.4-5.0) Albumin/Globulin Ratio 0.6 (1.0-1.7) Glucose (Fingerstick) 166 mg/dL (70-99) Prothrombin Time 13.3 SEC (11.7-14.0) Prothromb Time International Ratio 1.0 (0.8-1.1) Medications Current Medications Albuterol Sulfate (Ventolin Neb Soln) 2.5 mg PRN Q2HRS PRN NEB SHORTNESS OF BREATH; Start 06/13/18 at 11:30 Albuterol/ Ipratropium (Duoneb) 3 ml RTQID NEB Last administered on 06/14/18at 08:07; Start 06/13/18 at 12:00 Aspirin (Ecotrin) 81 mg DAILYWBKFT PO Last administered on 06/13/18at 16:17; Start 06/13/18 at 13:00 Benzonatate (Tessalon Perle) 100 mg PRN TID PRN PO COUGH Last administered on 22:55; Start 06/13/18 at 12:45 Guaifenesin (Robitussin Dm) 5 ml PRN Q6HRS PRN PO COUGH; Start 06/13/18 at 11: 15 Oseltamivir Phosphate (Tamiflu) 30 mg QMWF@1600 PO Last administered on 16:17; Start 06/13/18 at 16:00; Stop 06/15/18 at 17:00 Potassium Chloride (Klor-Con) 40 meq 1X ONCE PO ; Start 06/14/18 at 08:45; Stop 06/14/18 at 08:46; Status DC Sodium Chloride 1,000 ml @ 100 mls/hr Q10H IV Last administered on 06/13/18at 22:56; Start 06/13/18 at 11:30 Vitals/I & O Vital Sign - Last 24 Hours 06/13/18 06/13/18 06/13/18 06/13/18 11:00 15:00 16:18 19:40 Temp 98.0 98.3 98.0 98.3 Pulse 70 75 Resp 20 20 B/P (MAP) 137/65 (89) 133/64 (87) Pulse Ox 93 94 96 95 O2 Delivery Nasal Cannula Nasal Cannula Nasal Cannula Nasal Cannula O2 Flow Rate 2.0 2.0 2.0 2.0 06/13/18 06/13/18 06/13/18 06/13/18 19:55 20:00 22:50 22:55 Temp 98.9 98.2 98.9 98.2 Pulse 74 71 74 Resp 18 18 B/P (MAP) 146/68 (94) 128/60 (82) 146/68 Pulse Ox 94 92 O2 Delivery Room Air Nasal Cannula Nasal Cannula O2 Flow Rate 2.0 2.0 06/14/18 06/14/18 06/14/18 02:33 07:00 08:40 Temp 98.0 98.3 98.0 98.0 98.3 98.0 Pulse 89 72 72 Resp 18 18 18 B/P (MAP) 134/66 (88) 124/59 (80) 145/67 Pulse Ox 95 92 O2 Delivery Nasal Cannula Nasal Cannula O2 Flow Rate 2.0 2.0 Intake and Output 06/13/18 06/13/18 06/14/18 15:00 23:00 07:00 Intake Total 300 ml 2000 ml 1800 ml Output Total 500 ml 200 ml 1000 ml Balance -200 ml 1800 ml 800 ml YARELIS FONTENOT MD Jun 14, 2018 09:43
[2018-06-14] MEDS ORDERED: LIDOCAINE WITH 8.4% SOD BICARB 3 ML DISP.SYRIN. ONE (09:49)
[2018-06-14] MEDS ORDERED: HEPARIN for IV BOLUS 10,000 UNIT/10 ML VIAL. ONE (09:49)
[2018-06-14] MEDS ORDERED: LIDOCAINE WITH 8.4% SOD BICARB 3 ML DISP.SYRIN. INJ ONE (11:30)
--- NOTE | 2018-06-14 11:50 | PDOC ---
SUBJECTIVE ROS Vomiting OBJECTIVE Vital Signs Vital Signs Date Time Temp Pulse Resp B/P (MAP) Pulse Ox O2 Delivery O2 Flow Rate FiO2 06/14/18 10:38 98.3 65 18 140/66 98.3 06/14/18 08:00 Nasal Cannula 2.0 06/14/18 07:00 92 I & 0 Intake and Output 06/14/18 06:59 Intake Total 4100 ml Output Total 1700 ml Balance 2400 ml Intake Oral 2500 ml IV Total 1600 ml Output Urine Total 1350 ml Emesis 350 ml PHYSICAL EXAM Physical Exam Gen- NAD HEEN: Om dry, On o2 by NC NECK: supple CVS: RRR , No rub RESP: CTA, No Acc. Muscle Use GI: BS + ve, NO Bruit, Non Tender, obese : No CVA tenderness, No Suprapubic Tenderness, No Martinez Ext- No edema DIAGNOSIS/ASSESSMENT Assessment & Plan KATJA - On CKD stage 4 Decreased UOP, Poor po intake Renal US -Minimal renal cortical scarring,otherwise unremarkable. 24 ur for CrCl ongoing Initiate HD today, marcos RN early this am - Temp Cath today Before dc will need TDC, SW for OP chair time CKD stage 4- baseline 4.5, now 5.[address] Soto as OP She stopped meds due to lack of insurance AFIB RVR- cardiology CxR normal Hypokalemia- normal K Replace as needed nephrotic Syndrome- improved to 2.5 gm Flu- On Tamiflu DM II HTN Anemia- On Aranesp Non compliance due to insurance coverage Metabolic acidosis On PO NaHCO3 dc once she starts HD COMMENT/RELEVANT DATA Meds Current Medications Medications (Trade) Dose Ordered Sig/Joshua Start Time Stop Time Status Last Admin Dose Admin Acetaminophen (Tylenol) 650 mg PRN Q6HRS PRN 06/12/18 11:00 Albuterol Sulfate (Ventolin Neb Soln) 2.5 mg PRN Q2HRS PRN 06/13/18 11:30 Albuterol/ Ipratropium (Duoneb) 3 ml RTQID 06/13/18 12:00 06/14/18 08:07 3 ML Amlodipine Besylate (Norvasc) 5 mg DAILY 06/12/18 09:15 06/13/18 08:58 5 MG Aspirin (Devorah Aspirin) 325 mg 1X ONCE 06/11/18 16:45 06/11/18 16:46 DC 06/11/18 16:45 325 MG Aspirin (Ecotrin) 81 mg DAILYWBKFT 06/13/18 13:00 06/13/18 16:17 81 MG Atorvastatin Calcium (Lipitor) 40 mg HS 06/12/18 21:00 06/13/18 22:55 40 MG Benzonatate (Tessalon Perle) 100 mg PRN TID PRN 06/13/18 12:45 06/13/18 22:55 100 MG Darbepoetin Aman (Aranesp) 60 mcg WEEKLYHS 06/12/18 21:00 06/12/18 21:49 60 MCG Dextrose (Dextrose 50%-Water Syringe) 12.5 gm PRN Q15MIN PRN 06/11/18 17:00 Diltiazem HCl (Cardizem Iv Push) 10 mg 1X ONCE 06/11/18 16:45 06/11/18 16:46 DC 06/11/18 16:55 10 MG Diltiazem HCl 125 mg/Dextrose 125 ml @ 5 mls/hr 1X ONCE 06/11/18 16:45 06/12/18 17:44 DC 06/11/18 17:10 5 MLS/HR Ergocalciferol (Vitamin D2) 50,000 unit WEEKLY 06/12/18 09:30 06/12/18 12:59 50,000 UNIT Famotidine (Pepcid Vial) 20 mg 1X ONCE 06/11/18 16:15 06/11/18 16:17 DC 06/11/18 16:56 20 MG Guaifenesin (Robitussin Dm) 5 ml PRN Q6HRS PRN 06/13/18 11:15 Heparin Sodium (Porcine) (Heparin Sodium) 2,500 unit 1X ONCE 06/14/18 11:30 06/14/18 11:31 DC 06/14/18 11:30 2,500 UNIT Hydralazine HCl (Apresoline) 50 mg BID 06/12/18 09:30 06/13/18 22:55 50 MG Insulin Human Lispro (HumaLOG) 0-8 UNITS TIDAC 06/12/18 11:30 06/13/18 12:22 3 UNITS Insulin Human Regular (HumuLIN R VIAL) 14 unit 1X ONCE 06/11/18 17:00 06/11/18 17:01 DC 06/11/18 17:01 14 UNIT Isosorbide Mononitrate (Imdur) 30 mg DAILY 06/12/18 09:30 06/13/18 08:59 30 MG Lidocaine/Sodium Bicarbonate (Buffered Lidocaine 1%) 4 ml 1X ONCE 06/14/18 11:30 06/14/18 11:31 DC 06/14/18 11:30 4 ML Metoprolol Succinate (Toprol Xl) 50 mg DAILY 06/12/18 09:30 06/13/18 08:58 50 MG Ondansetron HCl (Zofran) 4 mg PRN Q6HRS PRN 06/12/18 11:00 06/14/18 05:25 4 MG Oseltamivir Phosphate (Tamiflu) 30 mg QMWF@1600 06/13/18 16:00 06/15/18 17:00 06/13/18 16:17 30 MG Potassium Chloride (Klor-Con) 40 meq 1X ONCE 06/14/18 08:45 06/14/18 08:46 DC Sodium Chloride 1,000 ml @ 100 mls/hr Q10H 06/13/18 11:30 06/14/18 09:58 DC 06/13/18 22:56 100 MLS/HR Lab Laboratory Tests Test 06/13/18 12:01 06/13/18 17:34 06/13/18 20:00 06/13/18 20:23 Glucose (Fingerstick) 201 mg/dL (70-99) 188 mg/dL (70-99) 166 mg/dL (70-99) Urine Collection Type Unknown Urine Color Yellow Urine Clarity Clear Urine pH 5.0 Urine Specific [place] 1.015 Urine Protein >=300 mg/dL (NEG-TRACE) Urine Glucose (UA) 250 mg/dL (NEG) Urine Ketones (Stick) Negative mg/dL (NEG) Urine Blood Negative (NEG) Urine Nitrite Negative (NEG) Urine Bilirubin Negative (NEG) Urine Urobilinogen Dipstick 0.2 mg/dL (0.2 mg/dL) Urine Leukocyte Esterase Small (NEG) Urine RBC 0 /HPF (0-2) Urine WBC 5-10 /HPF (0-4) Urine Squamous Epithelial Cells Mod /LPF Urine Amorphous Sediment Present /HPF Urine Bacteria Few /HPF (0-FEW) Urine Granular Casts Few /HPF Urine Mucus Slight /LPF Test 06/14/18 03:00 06/14/18 08:00 06/14/18 08:27 White Blood Count 4.2 x10^3/uL (4.0-11.0) Red Blood Count 2.42 x10^6/uL (3.50-5.40) Hemoglobin 6.9 g/dL (12.0-15.5) Hematocrit 20.0 % (36.0-47.0) Mean Corpuscular Volume 83 fL (79-100) Mean Corpuscular Hemoglobin 29 pg (25-35) Mean Corpuscular Hemoglobin Concent 35 g/dL (31-37) Red Cell Distribution Width 13.7 % (11.5-14.5) Platelet Count 139 x10^3/uL (140-400) Neutrophils (%) (Auto) 56 % (31-73) Lymphocytes (%) (Auto) 33 % (24-48) Monocytes (%) (Auto) 11 % (0-9) Eosinophils (%) (Auto) 0 % (0-3) Basophils (%) (Auto) 0 % (0-3) Neutrophils # (Auto) 2.3 x10^3uL (1.8-7.7) Lymphocytes # (Auto) 1.4 x10^3/uL (1.0-4.8) Monocytes # (Auto) 0.5 x10^3/uL (0.0-1.1) Eosinophils # (Auto) 0.0 x10^3/uL (0.0-0.7) Basophils # (Auto) 0.0 x10^3/uL (0.0-0.2) Sodium Level 135 mmol/L (136-145) Potassium Level 3.2 mmol/L (3.5-5.1) Chloride Level 100 mmol/L (98-107) Carbon Dioxide Level 21 mmol/L (21-32) Anion Gap 14 (6-14) Blood Urea Nitrogen 59 mg/dL (7-20) Creatinine 6.0 mg/dL (0.6-1.0) Estimated GFR (Cockcroft-Gault) 7.3 BUN/Creatinine Ratio 10 (6-20) Glucose Level 130 mg/dL (70-99) Calcium Level 7.9 mg/dL (8.5-10.1) Total Bilirubin 0.2 mg/dL (0.2-1.0) Aspartate Amino Transf (AST/SGOT) 17 U/L (15-37) Alanine Aminotransferase (ALT/SGPT) 14 U/L (14-59) Alkaline Phosphatase 78 U/L (46-116) Total Protein 6.0 g/dL (6.4-8.2) Albumin 2.2 g/dL (3.4-5.0) Albumin/Globulin Ratio 0.6 (1.0-1.7) Glucose (Fingerstick) 166 mg/dL (70-99) Prothrombin Time 13.3 SEC (11.7-14.0) Prothromb Time International Ratio 1.0 (0.8-1.1) Results All relevant outside records, renal labs, imaging studies, telemetry/EKG's were reviewed. HIMANSHU MCGOVERN MD Jun 14, 2018 11:50
[2018-06-14 12:16] LABS: TOTAL SERUM CREATININE 5.76 mg/dL (0.57-1.00); TOTAL URINE CREATININE 160.7 mg/dL (Not Estab.)
--- NOTE | 2018-06-14 12:16 | RAD ---
Procedure: Temporary hemodialysis catheter placement under fluoroscopy Clinical Indication: 52-year-old requiring hemodialysis Sedation: Local anesthesia only Antibiotics: None Fluoro Time: 0.1 minutes. Images: 1 Contrast: None Sterility: All elements of maximal sterile barrier technique including the use of a cap, mask, sterile gown, sterile gloves, large sterile sheet, appropriate hand hygiene, and 2% chlorhexidine for cutaneous antisepsis (or acceptable alternative antiseptic per current guidelines) were followed for this procedure. Consent: The procedure was explained in its entirety to the patient or the patients designated senior outside sales representative by a member of the treatment team, including a discussion of the risks, benefits and commonly accepted alternatives to the procedure, as well as the expected consequences of no therapy whatsoever. Discussion of the risks included, but was not limited to, those that are most frequent and those that are rare but possibly severe or life-threatening, as well as the possibility of unforeseen complications. Technique and Findings: Following informed consent, the patient was prepped and draped in the usual sterile fashion. Ultrasound interrogation of the right neck revealed patency and compressibility of the right internal jugular vein. A 21-gauge micropuncture needle was used to gain access to this vein after 1% Lidocaine was used to achieve local anesthesia. A hardcopy ultrasound image was recorded. The needle was exchanged over a wire for serial dilators followed by a 20 cm Schon temporary hemodialysis catheter which was deployed under fluoroscopic guidance such that the distal tip resided in the mid right atrium. The catheter flow rates were assessed manually and found to be excellent. The catheter was then flushed, packed with Heparin, capped, and sutured to the skin. Complications: No immediate Impression: 1. Ultrasound and fluoroscopic guided placement of a temporary hemodialysis catheter which exhibits excellent manual flow rates as described.
[2018-06-14] MEDS ORDERED: IV NORMAL SALINE 1000ML BAG 1,000 ML IV PRN ×2 (12:51)
[2018-06-14] MEDS ORDERED: DIALYSIS PATIENT. MC PRN ×2 (13:00)
[2018-06-14] MEDS ORDERED: ALBUMIN HUMAN 25% 200 ML IV PRN (13:00)
[2018-06-14 13:20] LABS: UR PROTEIN 363.2 mg/dL (Not Estab.)
--- NOTE | 2018-06-14 15:10 | PDOC ---
CARDIO Progress Notes Date and Time Date of Service 06/14/2018 Time of Evaluation 1500 Subjective Subjective: No Chest Pain, No shortness of breath, No Palpitations Vitals Vitals Vital Signs Date Time Temp Pulse Resp B/P (MAP) Pulse Ox O2 Delivery O2 Flow Rate FiO2 06/14/18 10:38 98.3 65 18 140/66 98.3 06/14/18 08:00 Nasal Cannula 2.0 06/14/18 07:00 92 Weight Weight [ ] Input and Output Intake and Output Intake and Output 06/14/18 07:00 Intake Total 4100 ml Output Total 1700 ml Balance 2400 ml Intake Oral 2500 ml IV Total 1600 ml Output Urine Total 1350 ml Emesis 350 ml Laboratory Labs Laboratory Tests Test 06/13/18 17:34 06/13/18 20:00 06/13/18 20:23 06/14/18 03:00 Glucose (Fingerstick) 188 mg/dL (70-99) 166 mg/dL (70-99) Urine Collection Type Unknown Urine Color Yellow Urine Clarity Clear Urine pH 5.0 Urine Specific [place] 1.015 Urine Protein >=300 mg/dL (NEG-TRACE) Urine Glucose (UA) 250 mg/dL (NEG) Urine Ketones (Stick) Negative mg/dL (NEG) Urine Blood Negative (NEG) Urine Nitrite Negative (NEG) Urine Bilirubin Negative (NEG) Urine Urobilinogen Dipstick 0.2 mg/dL (0.2 mg/dL) Urine Leukocyte Esterase Small (NEG) Urine RBC 0 /HPF (0-2) Urine WBC 5-10 /HPF (0-4) Urine Squamous Epithelial Cells Mod /LPF Urine Amorphous Sediment Present /HPF Urine Bacteria Few /HPF (0-FEW) Urine Granular Casts Few /HPF Urine Mucus Slight /LPF White Blood Count 4.2 x10^3/uL (4.0-11.0) Red Blood Count 2.42 x10^6/uL (3.50-5.40) Hemoglobin 6.9 g/dL (12.0-15.5) Hematocrit 20.0 % (36.0-47.0) Mean Corpuscular Volume 83 fL (79-100) Mean Corpuscular Hemoglobin 29 pg (25-35) Mean Corpuscular Hemoglobin Concent 35 g/dL (31-37) Red Cell Distribution Width 13.7 % (11.5-14.5) Platelet Count 139 x10^3/uL (140-400) Neutrophils (%) (Auto) 56 % (31-73) Lymphocytes (%) (Auto) 33 % (24-48) Monocytes (%) (Auto) 11 % (0-9) Eosinophils (%) (Auto) 0 % (0-3) Basophils (%) (Auto) 0 % (0-3) Neutrophils # (Auto) 2.3 x10^3uL (1.8-7.7) Lymphocytes # (Auto) 1.4 x10^3/uL (1.0-4.8) Monocytes # (Auto) 0.5 x10^3/uL (0.0-1.1) Eosinophils # (Auto) 0.0 x10^3/uL (0.0-0.7) Basophils # (Auto) 0.0 x10^3/uL (0.0-0.2) Sodium Level 135 mmol/L (136-145) Potassium Level 3.2 mmol/L (3.5-5.1) Chloride Level 100 mmol/L (98-107) Carbon Dioxide Level 21 mmol/L (21-32) Anion Gap 14 (6-14) Blood Urea Nitrogen 59 mg/dL (7-20) Creatinine 6.0 mg/dL (0.6-1.0) Estimated GFR (Cockcroft-Gault) 7.3 BUN/Creatinine Ratio 10 (6-20) Glucose Level 130 mg/dL (70-99) Calcium Level 7.9 mg/dL (8.5-10.1) Total Bilirubin 0.2 mg/dL (0.2-1.0) Aspartate Amino Transf (AST/SGOT) 17 U/L (15-37) Alanine Aminotransferase (ALT/SGPT) 14 U/L (14-59) Alkaline Phosphatase 78 U/L (46-116) Total Protein 6.0 g/dL (6.4-8.2) Albumin 2.2 g/dL (3.4-5.0) Albumin/Globulin Ratio 0.6 (1.0-1.7) Test 06/14/18 08:00 06/14/18 08:27 06/14/18 12:07 Glucose (Fingerstick) 166 mg/dL (70-99) 162 mg/dL (70-99) Prothrombin Time 13.3 SEC (11.7-14.0) Prothromb Time International Ratio 1.0 (0.8-1.1) Physical Exam HEENT: Neck Supple W Full Motion Chest: Symmetric LUNGS: Clear to Auscultation Heart: S1S2, RRR (SR) Abdomen: Soft N/T Extremities: No Edema, No Calf Tenderness Neurology: alert, oriented, follow commands Assessment Assessment 1. PAFIB; maintaining SR 2. NSTEMI; peak 0.478. Most probably type II, demand ischemia in the setting of renal failure and influenza 3. Chronic diastolic CHF: EF and WM nml, no significant valvular issues. compensated 4. Hypertension; controlled 5. Hyperlipidemia; statin 6. Influenza A; Tamiflu 7. CKD IV progressing to CKD5: needing HD 8. Anemia of chronic disease: Hgb trending down to 6.9 prompting transfusion, no obvious bleed. 9. Noncompliance: due to financial constraints. Recommendations 1. Disability/medicaid application ongoing per SS. ASA for now for stroke prevention. 2. Outpatient event monitor to note arrhythmia burden if patient is able to afford/obtain insurance coverage 3. Outpt stress test is also a consideration 4. Change toprol to tartrate for affordability 5. HD started today. 6. Eventually will warrant anticoagulation, possibly coumadin given her BMI at 40 once financial assistance is verified. Further discussion as an outpt. JOVANY ALEXIS APRN Jun 14, 2018 15:10
--- NOTE | 2018-06-14 15:51 | NUR ---
SW following. Discussed with RN. KIRSTEN met with pt to complete a dialysis admissions intake form and patient insurability form. SW awaiting Hep B total core antibody to fax dialysis referral. KIRSTEN will continue to follow.
[2018-06-14] MEDS: OSELTAMIVIR 30 MG CAPSULE PO SCH (16:00)
[2018-06-14] MEDS: amLODIPine BESYLATE 5 MG TABLET PO SCH (17:09)
[2018-06-14] MEDS: ASPIRIN ENTERIC COATED 81 MG TABLET.DR. PO SCH (17:10)
[2018-06-14] MEDS: ISOSORBIDE MONONITRATE ER 30 MG TAB.ER.24H PO SCH (17:10)
[2018-06-14] MEDS: ATORVASTATIN CALCIUM 40 MG TABLET. PO SCH (20:36)
[2018-06-15 03:30] VITALS: BP 138/64
[2018-06-15 04:40] LABS: BASO % 0 % (0-3); EOS % 0 % (0-3); HEMATOCRIT 21.3 % (36.0-47.0); HEMOGLOBIN 7.3 g/dL (12.0-15.5); LYMPH # 0.7 x10^3/uL (1.0-4.8); LYMPH % 17 % (24-48); MEAN CORPUSCULAR HEMOGLOBIN 28 pg (25-35); MEAN CORPUSCULAR HGB CONC 34 g/dL (31-37); MEAN CORPUSCULAR VOLUME 82 fL (79-100); MONO # 0.4 x10^3/uL (0.0-1.1); MONO % 10 % (0-9); NEUT # 3.1 x10^3uL (1.8-7.7); NEUT % 73 % (31-73); PLATELET COUNT 147 x10^3/uL (140-400); RED BLOOD COUNT 2.58 x10^6/uL (3.50-5.40); RED CELL DISTRIBUTION WIDTH 13.8 % (11.5-14.5); WHITE BLOOD COUNT 4.3 x10^3/uL (4.0-11.0)
[2018-06-15 04:57] LABS: ALBUMIN 2.2 g/dL (3.4-5.0); ALBUMIN/GLOBULIN RATIO 0.6 (1.0-1.7); CALCIUM 7.9 mg/dL (8.5-10.1); CREATININE 4.1 mg/dL (0.6-1.0); GFR 11.4; POTASSIUM 3.9 mmol/L (3.5-5.1); TOTAL BILIRUBIN 0.4 mg/dL (0.2-1.0); TOTAL PROTEIN 6.1 g/dL (6.4-8.2)
[2018-06-15] MEDS: IPRATRPIUM/ALBUTEROL 0.5/2.5MG 3 ML NEBU. NEB SCH ×4 (07:31→19:50)
[2018-06-15 07:49] VITALS: BP 170/76
[2018-06-15] MEDS: ONDANSETRON PF 4 MG/2 ML VIAL. IV PRN (08:37)
[2018-06-15] MEDS: ASPIRIN ENTERIC COATED 81 MG TABLET.DR. PO SCH (08:37)
[2018-06-15] MEDS: amLODIPine BESYLATE 5 MG TABLET PO SCH (08:38)
[2018-06-15] MEDS: ISOSORBIDE MONONITRATE ER 30 MG TAB.ER.24H PO SCH (08:38)
[2018-06-15] MEDS: METOPROLOL TART IMMED RELEASE 25 MG TABLET. PO SCH ×2 (08:38→20:21)
[2018-06-15] MEDS: INSULIN LISPRO 300 UNITS/3 ML INSULN.PEN. SQ SCH ×3 (08:47→17:28)
--- NOTE | 2018-06-15 09:38 | PDOC ---
PROGRESS NOTES Subjective Subjective feels tired Objective Objective Vital Signs Date Time Temp Pulse Resp B/P (MAP) Pulse Ox O2 Delivery O2 Flow Rate FiO2 06/15/18 08:38 81 170/76 06/15/18 08:00 Nasal Cannula 2.0 06/15/18 07:49 98.2 22 92 98.2 Intake and Output 06/15/18 07:00 Intake Total 812 ml Output Total 700 ml Balance 112 ml Intake Oral 500 ml Blood Product IV Normal Saline Flush 312 ml Output Urine Total 700 ml # Voids 2 Physical Exam Abdomen: Normal bowel sounds, Soft, No tenderness Heart: Regular rate Extremities: No clubbing, No cyanosis, No edema, Normal pulses General: Alert, Oriented X3, Cooperative, No acute distress HEENT: Atraumatic, PERRLA, EOMI, Mucous membr. moist/pink Lungs: Normal air movement, Other (crackes inbases) MUSCULOSKELETAL: No joint tenderness, No deformity, No swelling Neuro: Normal gait, Normal speech, Cranial nerves 3-12 NL Psych/Mental Status: Mental status NL, Mood NL Skin: No rashes, No significant lesion Diagnosis Problem List Problems Medical Problems: (1) Atrial fibrillation with RVR Status: Acute (2) Elevated troponin Status: Acute (3) Hyperglycemia Status: Acute Assessment Assessment Problems Medical Problems: (1) Atrial fibrillation with RVR Status: Acute (2) Elevated troponin Status: Acute (3) Hyperglycemia Status: Acute IMPRESSION:Influenza A lung infection 1. Episodic Atrial fibrillation with rapid ventricular response resolved. 2. Nephrotic syndrome. 3. Chronic kidney disease, stage 4-5.cr 6.0 4. Diabetes mellitus type 2, not controlled. 5. Hypertension. 6. Hypokalemia. 7. Metabolic acidosis. 8. Anemia due to CRF,hb 6.9 9. Noncompliance. 10 NV type 2,elevated tropnin due to demand ischemia PLAN: started on dialysis 06/14,tolerated well transfused hb 7.3 today dialysis today and tomorrow Tamiflu for influenza. social work consult. monitor Hb, will need Aranesp shot. possible uti , check urine c/s Echo good LVF. cxr -neg Plan Plan of Care Problems Medical Problems: (1) Atrial fibrillation with RVR Status: Acute (2) Elevated troponin Status: Acute (3) Hyperglycemia Status: Acute Comment Review of Relevant I have reviewed the following items allen (where applicable) has been applied. Labs Laboratory Tests Test 06/14/18 12:07 06/14/18 16:17 06/14/18 20:46 06/15/18 04:00 Glucose (Fingerstick) 162 mg/dL (70-99) 120 mg/dL (70-99) 245 mg/dL (70-99) White Blood Count 4.3 x10^3/uL (4.0-11.0) Red Blood Count 2.58 x10^6/uL (3.50-5.40) Hemoglobin 7.3 g/dL (12.0-15.5) Hematocrit 21.3 % (36.0-47.0) Mean Corpuscular Volume 82 fL (79-100) Mean Corpuscular Hemoglobin 28 pg (25-35) Mean Corpuscular Hemoglobin Concent 34 g/dL (31-37) Red Cell Distribution Width 13.8 % (11.5-14.5) Platelet Count 147 x10^3/uL (140-400) Neutrophils (%) (Auto) 73 % (31-73) Lymphocytes (%) (Auto) 17 % (24-48) Monocytes (%) (Auto) 10 % (0-9) Eosinophils (%) (Auto) 0 % (0-3) Basophils (%) (Auto) 0 % (0-3) Neutrophils # (Auto) 3.1 x10^3uL (1.8-7.7) Lymphocytes # (Auto) 0.7 x10^3/uL (1.0-4.8) Monocytes # (Auto) 0.4 x10^3/uL (0.0-1.1) Eosinophils # (Auto) 0.0 x10^3/uL (0.0-0.7) Basophils # (Auto) 0.0 x10^3/uL (0.0-0.2) Sodium Level 137 mmol/L (136-145) Potassium Level 3.9 mmol/L (3.5-5.1) Chloride Level 101 mmol/L (98-107) Carbon Dioxide Level 26 mmol/L (21-32) Anion Gap 10 (6-14) Blood Urea Nitrogen 30 mg/dL (7-20) Creatinine 4.1 mg/dL (0.6-1.0) Estimated GFR (Cockcroft-Gault) 11.4 BUN/Creatinine Ratio 7 (6-20) Glucose Level 231 mg/dL (70-99) Calcium Level 7.9 mg/dL (8.5-10.1) Total Bilirubin 0.4 mg/dL (0.2-1.0) Aspartate Amino Transf (AST/SGOT) 17 U/L (15-37) Alanine Aminotransferase (ALT/SGPT) 14 U/L (14-59) Alkaline Phosphatase 79 U/L (46-116) Total Protein 6.1 g/dL (6.4-8.2) Albumin 2.2 g/dL (3.4-5.0) Albumin/Globulin Ratio 0.6 (1.0-1.7) Test 06/15/18 07:13 Glucose (Fingerstick) 189 mg/dL (70-99) Medications Current Medications Albumin Human 200 ml @ 200 mls/hr 1X PRN PRN IV Hypotension; Start 06/14/18 at 13:00; Stop 06/14/18 at 18:59; Status DC Heparin Sodium (Porcine) (Heparin Sodium) 2,500 unit 1X ONCE INT CAT Last administered on 06/14/18at 11:30; Start 06/14/18 at 11:30; Stop 06/14/18 at 11:31 ; Status DC Heparin Sodium (Porcine) (Heparin Sodium) 10,000 unit STK-MED ONCE .ROUTE ; Start 06/14/18 at 09:49; Stop 06/14/18 at 09:50; Status DC Info (PHARMACY MONITORING -- do not chart) 1 each PRN DAILY PRN MC SEE COMMENTS ; Start 06/14/18 at 13:00 Info (PHARMACY MONITORING -- do not chart) 1 each PRN DAILY PRN MC SEE COMMENTS ; Start 06/14/18 at 13:00; Status UNV Lidocaine/Sodium Bicarbonate (Buffered Lidocaine 1%) 3 ml STK-MED ONCE .ROUTE ; Start 06/14/18 at 09:49; Stop 06/14/18 at 09:50; Status DC Lidocaine/Sodium Bicarbonate (Buffered Lidocaine 1%) 4 ml 1X ONCE INJ Last administered on 06/14/18at 11:30; Start 06/14/18 at 11:30; Stop 06/14/18 at 11:31 ; Status DC Metoprolol Tartrate (Lopressor) 25 mg BID PO Last administered on 06/15/18at 08: 38; Start 06/15/18 at 09:00 Oseltamivir Phosphate (Tamiflu) 30 mg QTUTHSA PO ; Start 06/14/18 at 16:00; Stop 06/16/18 at 17:00 Potassium Chloride (Klor-Con) 40 meq 1X ONCE PO Last administered on at 17:29; Start 06/14/18 at 17:30; Stop 06/14/18 at 17:31; Status DC Sodium Chloride 1,000 ml @ 400 mls/hr Q2H30M PRN IV PATENCY; Start 06/14/18 at 12:51; Stop 06/15/18 at 00:50; Status DC Sodium Chloride 1,000 ml @ 1,000 mls/hr Q1H PRN IV hypotension; Start 06/14/18 at 12:51; Stop 06/14/18 at 18:50; Status DC Vitals/I & O Vital Sign - Last 24 Hours 06/14/18 06/14/18 06/14/18 06/14/18 09:40 10:38 11:59 16:00 Temp 98.3 98.3 97.8 98.3 98.3 97.8 Pulse 69 65 75 Resp 18 18 18 B/P (MAP) 136/65 140/66 166/68 (100) Pulse Ox 94 95 O2 Delivery Nasal Cannula Nasal Cannula O2 Flow Rate 2.0 2.0 06/14/18 06/14/18 06/14/18 06/14/18 17:09 17:10 17:10 17:18 Pulse 75 75 75 B/P (MAP) 166/68 166/68 166/68 O2 Delivery Nasal Cannula O2 Flow Rate 2.0 06/14/18 06/14/18 06/14/18 06/14/18 19:44 19:45 20:15 20:36 Temp 98.1 98.1 Pulse 85 85 Resp 20 B/P (MAP) 128/51 (76) 128/51 Pulse Ox 99 95 O2 Delivery Nasal Cannula Nasal Cannula Nasal Cannula O2 Flow Rate 2.0 2.0 2.0 06/14/18 06/15/18 06/15/18 06/15/18 22:45 03:30 03:57 07:33 Temp 98.3 98.3 98.3 98.3 Pulse 86 84 81 Resp 20 22 22 B/P (MAP) 137/64 (88) 138/64 (88) Pulse Ox 94 79 92 94 O2 Delivery Nasal Cannula Room Air Nasal Cannula Nasal Cannula O2 Flow Rate 2.0 2.0 2.0 06/15/18 06/15/18 06/15/18 06/15/18 07:49 08:00 08:38 08:38 Temp 98.2 98.2 Pulse 81 81 81 Resp 22 B/P (MAP) 170/76 (107) 170/76 170/76 Pulse Ox 92 O2 Delivery Nasal Cannula Nasal Cannula O2 Flow Rate 2.0 2.0 06/15/18 06/15/18 08:38 08:38 Pulse 81 81 B/P (MAP) 170/76 170/76 Intake and Output 06/14/18 06/14/18 06/15/18 15:00 23:00 07:00 Intake Total 312 ml 500 ml Output Total 700 ml Balance 312 ml -700 ml 500 ml YARELIS FONTENOT MD Jun 15, 2018 09:38
[2018-06-15 10:38] VITALS: BP 134/64
--- NOTE | 2018-06-15 11:19 | NUR ---
KIRSTEN following for discharge planning. Discussed with RN. KIRSTEN faxed new dialysis patient insurability forms and required documentation to [facility]. KIRSTEN still awaiting Hep B Total Core. KIRSTEN will continue to follow.
--- NOTE | 2018-06-15 13:22 | NUR ---
KIRSTEN following. KIRSTEN received a call from Kiley at [facility]. They are trying to get a chair for pt at the [facility] as [facility] locations are all at capacity. Kiley advised each treatment can range from $300 and up. KIRSTEN will discuss with pt. KIRSTEN will continue to follow.
--- NOTE | 2018-06-15 13:32 | PDOC ---
SUBJECTIVE ROS still c/o N/V OBJECTIVE Vital Signs Vital Signs Date Time Temp Pulse Resp B/P (MAP) Pulse Ox O2 Delivery O2 Flow Rate FiO2 06/15/18 12:34 Room Air 06/15/18 10:38 97.8 68 18 134/64 (87) 95 2.0 97.8 I & 0 Intake and Output 06/15/18 07:00 Intake Total 812 ml Output Total 700 ml Balance 112 ml Intake Oral 500 ml Blood Product IV Normal Saline Flush 312 ml Output Urine Total 700 ml # Voids 2 PHYSICAL EXAM Physical Exam Gen- NAD HEEN: Om dry, On RA NECK: supple CVS: RRR , No rub RESP: CTA, No Acc. Muscle Use GI: BS + ve, NO Bruit, Non Tender, obese : No CVA tenderness, No Suprapubic Tenderness, No Martinez Ext- No edema DIAGNOSIS/ASSESSMENT Assessment & Plan KATJA - On CKD stage 4 Decreased UOP, Poor po intake Renal US -Minimal renal cortical scarring,otherwise unremarkable. 24 ur CrCl 11 Initiated HD 06/14 Before dc will need TDC, SW for OP chair time Will hold off today, labs and Vol status stable schedule for tomorrow N/V- Unlikely Uremia If persistent, consult GI CKD stage 4- baseline 4.5, now 5.[address] Soto as OP She stopped meds due to lack of insurance AFIB RVR- cardiology CxR normal Hypokalemia- normal K nephrotic Syndrome- improved to 2.5 gm Flu- On Tamiflu DM II HTN Anemia- On Aranesp Non compliance due to insurance coverage Metabolic acidosis resolved Dw Pt , RN COMMENT/RELEVANT DATA Meds Current Medications Medications (Trade) Dose Ordered Sig/Joshua Start Time Stop Time Status Last Admin Dose Admin Acetaminophen (Tylenol) 650 mg PRN Q6HRS PRN 06/12/18 11:00 Albumin Human 200 ml @ 200 mls/hr 1X PRN PRN 06/14/18 13:00 06/14/18 18:59 DC Albuterol Sulfate (Ventolin Neb Soln) 2.5 mg PRN Q2HRS PRN 06/13/18 11:30 Albuterol/ Ipratropium (Duoneb) 3 ml RTQID 06/13/18 12:00 06/15/18 12:33 3 ML Amlodipine Besylate (Norvasc) 5 mg DAILY 06/12/18 09:15 06/15/18 08:38 5 MG Aspirin (Devorah Aspirin) 325 mg 1X ONCE 06/11/18 16:45 06/11/18 16:46 DC 06/11/18 16:45 325 MG Aspirin (Ecotrin) 81 mg DAILYWBKFT 06/13/18 13:00 06/15/18 08:37 81 MG Atorvastatin Calcium (Lipitor) 40 mg HS 06/12/18 21:00 06/14/18 20:36 40 MG Benzonatate (Tessalon Perle) 100 mg PRN TID PRN 06/13/18 12:45 06/13/18 22:55 100 MG Darbepoetin Aman (Aranesp) 60 mcg WEEKLYHS 06/12/18 21:00 06/12/18 21:49 60 MCG Dextrose (Dextrose 50%-Water Syringe) 12.5 gm PRN Q15MIN PRN 06/11/18 17:00 Diltiazem HCl (Cardizem Iv Push) 10 mg 1X ONCE 06/11/18 16:45 06/11/18 16:46 DC 06/11/18 16:55 10 MG Diltiazem HCl 125 mg/Dextrose 125 ml @ 5 mls/hr 1X ONCE 06/11/18 16:45 06/12/18 17:44 DC 06/11/18 17:10 5 MLS/HR Ergocalciferol (Vitamin D2) 50,000 unit WEEKLY 06/12/18 09:30 06/12/18 12:59 50,000 UNIT Famotidine (Pepcid Vial) 20 mg 1X ONCE 06/11/18 16:15 06/11/18 16:17 DC 06/11/18 16:56 20 MG Guaifenesin (Robitussin Dm) 5 ml PRN Q6HRS PRN 06/13/18 11:15 Heparin Sodium (Porcine) (Heparin Sodium) 2,500 unit 1X ONCE 06/14/18 11:30 06/14/18 11:31 DC 06/14/18 11:30 2,500 UNIT Hydralazine HCl (Apresoline) 50 mg BID 06/12/18 09:30 06/15/18 08:38 50 MG Info (PHARMACY MONITORING -- do not chart) 1 each PRN DAILY PRN 06/14/18 13:00 Insulin Human Lispro (HumaLOG) 0-8 UNITS TIDAC 06/12/18 11:30 06/15/18 11:56 2 UNITS Insulin Human Regular (HumuLIN R VIAL) 14 unit 1X ONCE 06/11/18 17:00 06/11/18 17:01 DC 06/11/18 17:01 14 UNIT Isosorbide Mononitrate (Imdur) 30 mg DAILY 06/12/18 09:30 06/15/18 08:38 30 MG Lidocaine/Sodium Bicarbonate (Buffered Lidocaine 1%) 4 ml 1X ONCE 06/14/18 11:30 06/14/18 11:31 DC 06/14/18 11:30 4 ML Metoprolol Succinate (Toprol Xl) 50 mg DAILY 06/12/18 09:30 06/14/18 15:07 DC 06/13/18 08:58 50 MG Metoprolol Tartrate (Lopressor) 25 mg BID 06/15/18 09:00 06/15/18 08:38 25 MG Ondansetron HCl (Zofran) 4 mg PRN Q6HRS PRN 06/12/18 11:00 06/15/18 08:37 4 MG Oseltamivir Phosphate (Tamiflu) 30 mg QTUTHSA 06/14/18 16:00 06/16/18 17:00 Potassium Chloride (Klor-Con) 40 meq 1X ONCE 06/14/18 17:30 06/14/18 17:31 DC 06/14/18 17:29 40 MEQ Sodium Chloride 1,000 ml @ 400 mls/hr Q2H30M PRN 06/14/18 12:51 06/15/18 00:50 DC Lab Laboratory Tests Test 06/14/18 16:17 06/14/18 20:46 06/15/18 04:00 06/15/18 07:13 Glucose (Fingerstick) 120 mg/dL (70-99) 245 mg/dL (70-99) 189 mg/dL (70-99) White Blood Count 4.3 x10^3/uL (4.0-11.0) Red Blood Count 2.58 x10^6/uL (3.50-5.40) Hemoglobin 7.3 g/dL (12.0-15.5) Hematocrit 21.3 % (36.0-47.0) Mean Corpuscular Volume 82 fL (79-100) Mean Corpuscular Hemoglobin 28 pg (25-35) Mean Corpuscular Hemoglobin Concent 34 g/dL (31-37) Red Cell Distribution Width 13.8 % (11.5-14.5) Platelet Count 147 x10^3/uL (140-400) Neutrophils (%) (Auto) 73 % (31-73) Lymphocytes (%) (Auto) 17 % (24-48) Monocytes (%) (Auto) 10 % (0-9) Eosinophils (%) (Auto) 0 % (0-3) Basophils (%) (Auto) 0 % (0-3) Neutrophils # (Auto) 3.1 x10^3uL (1.8-7.7) Lymphocytes # (Auto) 0.7 x10^3/uL (1.0-4.8) Monocytes # (Auto) 0.4 x10^3/uL (0.0-1.1) Eosinophils # (Auto) 0.0 x10^3/uL (0.0-0.7) Basophils # (Auto) 0.0 x10^3/uL (0.0-0.2) Sodium Level 137 mmol/L (136-145) Potassium Level 3.9 mmol/L (3.5-5.1) Chloride Level 101 mmol/L (98-107) Carbon Dioxide Level 26 mmol/L (21-32) Anion Gap 10 (6-14) Blood Urea Nitrogen 30 mg/dL (7-20) Creatinine 4.1 mg/dL (0.6-1.0) Estimated GFR (Cockcroft-Gault) 11.4 BUN/Creatinine Ratio 7 (6-20) Glucose Level 231 mg/dL (70-99) Calcium Level 7.9 mg/dL (8.5-10.1) Total Bilirubin 0.4 mg/dL (0.2-1.0) Aspartate Amino Transf (AST/SGOT) 17 U/L (15-37) Alanine Aminotransferase (ALT/SGPT) 14 U/L (14-59) Alkaline Phosphatase 79 U/L (46-116) Total Protein 6.1 g/dL (6.4-8.2) Albumin 2.2 g/dL (3.4-5.0) Albumin/Globulin Ratio 0.6 (1.0-1.7) Test 06/15/18 11:08 Glucose (Fingerstick) 169 mg/dL (70-99) Results All relevant outside records, renal labs, imaging studies, telemetry/EKG's were reviewed. HIMANSHU MCGOVERN MD Jun 15, 2018 13:32
[2018-06-15 15:00] VITALS: BP 133/49
--- NOTE | 2018-06-15 16:21 | NUR ---
KIRSTEN following. KIRSTEN met with pt to determine if pt is able to pay for dialysis. Pt reported her parents pay for everything because she is not working right now. KIRSTEN clarifying with Kiley at [facility] if pt's chair time would be leola or not. Ethan (KIRSTEN) contacted [facility] and left a voicemail. KIRSTEN will continue to follow.
[2018-06-15 19:42] VITALS: BP 162/59
[2018-06-15] MEDS: ATORVASTATIN CALCIUM 40 MG TABLET. PO SCH (20:21)
[2018-06-15 23:34] VITALS: BP 152/60
[2018-06-16 03:10] VITALS: BP 189/64
[2018-06-16 04:15] LABS: ALBUMIN 2.3 g/dL (3.4-5.0); ALBUMIN/GLOBULIN RATIO 0.5 (1.0-1.7); CALCIUM 8.5 mg/dL (8.5-10.1); GFR 9.1; POTASSIUM 3.6 mmol/L (3.5-5.1); TOTAL BILIRUBIN 0.5 mg/dL (0.2-1.0); TOTAL PROTEIN 6.5 g/dL (6.4-8.2)
[2018-06-16 07:00] VITALS: BP 189/77
[2018-06-16] MEDS: ISOSORBIDE MONONITRATE ER 30 MG TAB.ER.24H PO SCH (08:45)
[2018-06-16] MEDS: METOPROLOL TART IMMED RELEASE 25 MG TABLET. PO SCH ×2 (08:46→20:20)
[2018-06-16] MEDS: ASPIRIN ENTERIC COATED 81 MG TABLET.DR. PO SCH (08:46)
[2018-06-16] MEDS: amLODIPine BESYLATE 5 MG TABLET PO SCH (08:47)
[2018-06-16] MEDS: INSULIN LISPRO 300 UNITS/3 ML INSULN.PEN. SQ SCH ×3 (08:49→16:30)
[2018-06-16] MEDS: IPRATRPIUM/ALBUTEROL 0.5/2.5MG 3 ML NEBU. NEB SCH ×4 (09:08→20:23)
--- NOTE | 2018-06-16 10:31 | PDOC ---
PROGRESS NOTES Subjective Subjective feels better today Objective Objective Vital Signs Date Time Temp Pulse Resp B/P (MAP) Pulse Ox O2 Delivery O2 Flow Rate FiO2 06/16/18 09:08 93 Room Air 06/16/18 08:47 72 189/72 06/16/18 08:00 2.0 06/16/18 07:00 98.2 20 98.2 Intake and Output 06/16/18 06:59 Intake Total 980 ml Output Total 550 ml Balance 430 ml Intake Oral 980 ml Output Urine Total 550 ml Physical Exam Abdomen: Normal bowel sounds, Soft, No tenderness Heart: Regular rate Extremities: No clubbing, No cyanosis, No edema, Normal pulses General: Alert, Oriented X3, Cooperative, No acute distress HEENT: Atraumatic, PERRLA, EOMI, Mucous membr. moist/pink Lungs: Normal air movement, Other (crackes inbases) MUSCULOSKELETAL: No joint tenderness, No deformity, No swelling Neuro: Normal gait, Normal speech, Cranial nerves 3-12 NL Psych/Mental Status: Mental status NL, Mood NL Skin: No rashes, No significant lesion Diagnosis Problem List Problems Medical Problems: (1) Atrial fibrillation with RVR Status: Acute (2) Elevated troponin Status: Acute (3) Hyperglycemia Status: Acute Assessment Assessment Problems Medical Problems: (1) Atrial fibrillation with RVR Status: Acute (2) Elevated troponin Status: Acute (3) Hyperglycemia Status: Acute IMPRESSION: Influenza A lung infection 1. Episodic Atrial fibrillation with rapid ventricular response resolved. 2. Nephrotic syndrome. 3. Chronic kidney disease, stage 4-5.cr 6.0 4. Diabetes mellitus type 2, not controlled. 5. Hypertension. 6. Hypokalemia. 7. Metabolic acidosis. 8. Anemia due to CRF,hb 6.9 9. Noncompliance. 10 GA type 2,elevated tropnin due to demand ischemia PLAN: dialysis today perm dialysis catheter to be placed started on dialysis 06/14,tolerated well cr cl 11 low transfused hb 7.3 today dialysis today and tomorrow Tamiflu for influenza. social work consult. monitor Hb, will need Aranesp shot. uti , check urine c/s,100,000 gram neg start on po Keflex Echo good LVF. cxr -neg Plan Plan of Care Problems Medical Problems: (1) Atrial fibrillation with RVR Status: Acute (2) Elevated troponin Status: Acute (3) Hyperglycemia Status: Acute Comment Review of Relevant I have reviewed the following items allen (where applicable) has been applied. Labs Laboratory Tests Test 06/15/18 11:08 06/15/18 16:39 06/15/18 20:47 06/16/18 03:30 Glucose (Fingerstick) 169 mg/dL (70-99) 202 mg/dL (70-99) 219 mg/dL (70-99) Sodium Level 139 mmol/L (136-145) Potassium Level 3.6 mmol/L (3.5-5.1) Chloride Level 101 mmol/L (98-107) Carbon Dioxide Level 26 mmol/L (21-32) Anion Gap 12 (6-14) Blood Urea Nitrogen 35 mg/dL (7-20) Creatinine 5.0 mg/dL (0.6-1.0) Estimated GFR (Cockcroft-Gault) 9.1 BUN/Creatinine Ratio 7 (6-20) Glucose Level 180 mg/dL (70-99) Calcium Level 8.5 mg/dL (8.5-10.1) Total Bilirubin 0.5 mg/dL (0.2-1.0) Aspartate Amino Transf (AST/SGOT) 23 U/L (15-37) Alanine Aminotransferase (ALT/SGPT) 18 U/L (14-59) Alkaline Phosphatase 88 U/L (46-116) Total Protein 6.5 g/dL (6.4-8.2) Albumin 2.3 g/dL (3.4-5.0) Albumin/Globulin Ratio 0.5 (1.0-1.7) Test 06/16/18 08:34 Glucose (Fingerstick) 189 mg/dL (70-99) Microbiology 06/13/18 Urine Culture - Preliminary, Resulted 06/13/18 Urine Culture Result 1 (DAKOTA) - Preliminary, Resulted Medications Current Medications Cephalexin HCl (Keflex) 500 mg BID PO ; Start 06/16/18 at 10:00 Vitals/I & O Vital Sign - Last 24 Hours 06/15/18 06/15/18 06/15/18 06/15/18 10:38 12:34 15:00 16:44 Temp 97.8 97.8 97.8 97.8 Pulse 68 76 Resp 18 20 B/P (MAP) 134/64 (87) 133/49 (77) Pulse Ox 95 91 O2 Delivery Nasal Cannula Room Air Nasal Cannula Room Air O2 Flow Rate 2.0 2.0 06/15/18 06/15/18 06/15/18 06/15/18 19:42 19:50 20:15 20:21 Temp 98.1 98.1 Pulse 78 78 Resp 18 B/P (MAP) 162/59 (93) 162/59 Pulse Ox 95 97 O2 Delivery Nasal Cannula Nasal Cannula Nasal Cannula O2 Flow Rate 2.0 2.0 2.0 06/15/18 06/15/18 06/16/18 06/16/18 20:22 23:34 03:10 07:00 Temp 98.1 97.5 98.2 98.1 97.5 98.2 Pulse 78 74 72 72 Resp 17 18 20 B/P (MAP) 162/59 152/60 (90) 189/64 (105) 189/77 (114) Pulse Ox 96 99 O2 Delivery Nasal Cannula Nasal Cannula Room Air O2 Flow Rate 2.0 2.0 2.0 06/16/18 06/16/18 06/16/18 06/16/18 08:00 08:45 08:46 08:47 Pulse 73 72 71 B/P (MAP) 189/77 189/77 189/77 O2 Delivery Nasal Cannula O2 Flow Rate 2.0 06/16/18 06/16/18 08:47 09:08 Pulse 72 B/P (MAP) 189/72 Pulse Ox 93 O2 Delivery Room Air Intake and Output 06/15/18 06/15/18 06/16/18 14:59 22:59 06:59 Intake Total 360 ml 120 ml 500 ml Output Total 350 ml 200 ml Balance 360 ml -230 ml 300 ml YARELIS FONTENOT MD Jun 16, 2018 10:31
[2018-06-16 11:00] VITALS: BP 195/81
[2018-06-16] MEDS: CEPHALEXIN 250 MG CAPSULE. PO SCH ×2 (12:13→20:20)
--- NOTE | 2018-06-16 12:23 | NUR ---
SS following up with discharge planning. SS contacted [facility], ext [phone], to follow up on the status of pt's referral. [facility] reported that they were still trying to verify pt's income and had some questions regarding the insurability questionnaire that was completed. [facility] reported that there financial department would contact SS with the issues that they are currently having.
--- NOTE | 2018-06-16 13:46 | PDOC ---
SUBJECTIVE ROS Denies N/V , Seen on HD , No concerns OBJECTIVE Vital Signs Vital Signs Date Time Temp Pulse Resp B/P (MAP) Pulse Ox O2 Delivery O2 Flow Rate FiO2 06/16/18 11:39 93 Room Air 06/16/18 11:00 98.2 70 16 195/81 (119) 98.2 06/16/18 08:00 2.0 I & 0 Intake and Output 06/16/18 07:00 Intake Total 980 ml Output Total 550 ml Balance 430 ml Intake Oral 980 ml Output Urine Total 550 ml PHYSICAL EXAM Physical Exam Gen- NAD HEEN: Om dry, On RA NECK: supple CVS: RRR , No rub RESP: CTA, No Acc. 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 Soto as OP She stopped meds due to lack of insurance AFIB RVR- cardiology CxR normal Hypokalemia- normal K nephrotic Syndrome- improved to 2.5 gm Flu- On Tamiflu DM II HTN- HD with UF Antihypertensives Anemia- On Aranesp Non compliance due to insurance coverage Metabolic acidosis resolved Dw Pt , RN COMMENT/RELEVANT DATA Meds Current Medications Medications (Trade) Dose Ordered Sig/Johsua Start Time Stop Time Status Last Admin Dose Admin Acetaminophen (Tylenol) 650 mg PRN Q6HRS PRN 06/12/18 11:00 Albumin Human 200 ml @ 200 mls/hr 1X PRN PRN 06/14/18 13:00 06/14/18 18:59 DC Albuterol Sulfate (Ventolin Neb Soln) 2.5 mg PRN Q2HRS PRN 06/13/18 11:30 Albuterol/ Ipratropium (Duoneb) 3 ml RTQID 06/13/18 12:00 06/16/18 11:39 3 ML Amlodipine Besylate (Norvasc) 5 mg DAILY 06/12/18 09:15 06/16/18 08:47 5 MG Aspirin (Devorah Aspirin) 325 mg 1X ONCE 06/11/18 16:45 06/11/18 16:46 DC 06/11/18 16:45 325 MG Aspirin (Ecotrin) 81 mg DAILYWBKFT 06/13/18 13:00 06/16/18 08:46 81 MG Atorvastatin Calcium (Lipitor) 40 mg HS 06/12/18 21:00 06/15/18 20:21 40 MG Benzonatate (Tessalon Perle) 100 mg PRN TID PRN 06/13/18 12:45 06/13/18 22:55 100 MG Cephalexin HCl (Keflex) 500 mg BID 06/16/18 10:00 06/16/18 12:13 500 MG Darbepoetin Aman (Aranesp) 60 mcg WEEKLYHS 06/12/18 21:00 06/12/18 21:49 60 MCG Dextrose (Dextrose 50%-Water Syringe) 12.5 gm PRN Q15MIN PRN 06/11/18 17:00 Diltiazem HCl (Cardizem Iv Push) 10 mg 1X ONCE 06/11/18 16:45 06/11/18 16:46 DC 06/11/18 16:55 10 MG Diltiazem HCl 125 mg/Dextrose 125 ml @ 5 mls/hr 1X ONCE 06/11/18 16:45 06/12/18 17:44 DC 06/11/18 17:10 5 MLS/HR Ergocalciferol (Vitamin D2) 50,000 unit WEEKLY 06/12/18 09:30 06/12/18 12:59 50,000 UNIT Famotidine (Pepcid Vial) 20 mg 1X ONCE 06/11/18 16:15 06/11/18 16:17 DC 06/11/18 16:56 20 MG Guaifenesin (Robitussin Dm) 5 ml PRN Q6HRS PRN 06/13/18 11:15 Heparin Sodium (Porcine) (Heparin Sodium) 2,500 unit 1X ONCE 06/14/18 11:30 06/14/18 11:31 DC 06/14/18 11:30 2,500 UNIT Hydralazine HCl (Apresoline) 50 mg BID 06/12/18 09:30 06/16/18 08:47 50 MG Info (PHARMACY MONITORING -- do not chart) 1 each PRN DAILY PRN 06/14/18 13:00 Insulin Human Lispro (HumaLOG) 0-8 UNITS TIDAC 06/12/18 11:30 06/16/18 12:20 4 UNITS Insulin Human Regular (HumuLIN R VIAL) 14 unit 1X ONCE 06/11/18 17:00 06/11/18 17:01 DC 06/11/18 17:01 14 UNIT Isosorbide Mononitrate (Imdur) 30 mg DAILY 06/12/18 09:30 06/16/18 08:45 30 MG Lidocaine/Sodium Bicarbonate (Buffered Lidocaine 1%) 4 ml 1X ONCE 06/14/18 11:30 06/14/18 11:31 DC 06/14/18 11:30 4 ML Metoprolol Succinate (Toprol Xl) 50 mg DAILY 06/12/18 09:30 06/14/18 15:07 DC 06/13/18 08:58 50 MG Metoprolol Tartrate (Lopressor) 25 mg BID 06/15/18 09:00 06/16/18 08:46 25 MG Ondansetron HCl (Zofran) 4 mg PRN Q6HRS PRN 06/12/18 11:00 06/15/18 08:37 4 MG Oseltamivir Phosphate (Tamiflu) 30 mg QTUTHSA 06/14/18 16:00 06/16/18 17:00 Potassium Chloride (Klor-Con) 40 meq 1X ONCE 06/14/18 17:30 06/14/18 17:31 DC 06/14/18 17:29 40 MEQ Sodium Chloride 1,000 ml @ 400 mls/hr Q2H30M PRN 06/14/18 12:51 06/15/18 00:50 DC Lab Laboratory Tests Test 06/15/18 16:39 06/15/18 20:47 06/16/18 03:30 06/16/18 08:34 Glucose (Fingerstick) 202 mg/dL (70-99) 219 mg/dL (70-99) 189 mg/dL (70-99) Sodium Level 139 mmol/L (136-145) Potassium Level 3.6 mmol/L (3.5-5.1) Chloride Level 101 mmol/L (98-107) Carbon Dioxide Level 26 mmol/L (21-32) Anion Gap 12 (6-14) Blood Urea Nitrogen 35 mg/dL (7-20) Creatinine 5.0 mg/dL (0.6-1.0) Estimated GFR (Cockcroft-Gault) 9.1 BUN/Creatinine Ratio 7 (6-20) Glucose Level 180 mg/dL (70-99) Calcium Level 8.5 mg/dL (8.5-10.1) Total Bilirubin 0.5 mg/dL (0.2-1.0) Aspartate Amino Transf (AST/SGOT) 23 U/L (15-37) Alanine Aminotransferase (ALT/SGPT) 18 U/L (14-59) Alkaline Phosphatase 88 U/L (46-116) Total Protein 6.5 g/dL (6.4-8.2) Albumin 2.3 g/dL (3.4-5.0) Albumin/Globulin Ratio 0.5 (1.0-1.7) Test 06/16/18 11:12 Glucose (Fingerstick) 253 mg/dL (70-99) Results All relevant outside records, renal labs, imaging studies, telemetry/EKG's were reviewed. HIMANSHU MCGOVERN MD Jun 16, 2018 13:46
[2018-06-16] MEDS: OSELTAMIVIR 30 MG CAPSULE PO SCH (16:00)
[2018-06-16 19:35] VITALS: BP 160/72
[2018-06-16] MEDS: ATORVASTATIN CALCIUM 40 MG TABLET. PO SCH (20:19)
[2018-06-16 23:22] VITALS: BP 170/75
[2018-06-17] VITALS (17 sets, daily range): BP systolic 118–189; BP diastolic 61–90
[2018-06-17] MEDS: IPRATRPIUM/ALBUTEROL 0.5/2.5MG 3 ML NEBU. NEB SCH ×4 (07:24→20:03)
[2018-06-17] MEDS: INSULIN LISPRO 300 UNITS/3 ML INSULN.PEN. SQ SCH ×3 (07:30→17:34)
[2018-06-17] MEDS ORDERED: HEPARIN for IV BOLUS 10,000 UNIT/10 ML VIAL. ONE (08:04)
[2018-06-17] MEDS ORDERED: LIDOCAINE 1%/EPI 1:100,000 20 ML VIAL. ONE (08:04)
--- NOTE | 2018-06-17 09:22 | NUR ---
IP: Pt has completed the 5 infectious days and has been afebrile for >24 hours. Pt may be removed from droplet precautions.
[2018-06-17] MEDS ORDERED: MIDAZOLAM HCL/PF 2 MG/2 ML VIAL. ONE ×2 (09:52→10:30)
[2018-06-17] MEDS ORDERED: fentaNYL PF VIAL 100 MCG/2 ML VIAL ONE ×2 (09:52→10:34)
[2018-06-17 10:03] LABS: ALBUMIN 2.3 g/dL (3.4-5.0); ALBUMIN/GLOBULIN RATIO 0.5 (1.0-1.7); CALCIUM 8.5 mg/dL (8.5-10.1); CREATININE 3.7 mg/dL (0.6-1.0); GFR 12.8; POTASSIUM 3.8 mmol/L (3.5-5.1); TOTAL BILIRUBIN 0.8 mg/dL (0.2-1.0); TOTAL PROTEIN 6.6 g/dL (6.4-8.2)
--- NOTE | 2018-06-17 10:16 | PDOC ---
PROGRESS NOTES Subjective Subjective no new problems Objective Objective Vital Signs Date Time Temp Pulse Resp B/P (MAP) Pulse Ox O2 Delivery O2 Flow Rate FiO2 06/17/18 08:00 Nasal Cannula 2.0 06/17/18 07:24 92 06/17/18 07:00 98.1 74 18 179/77 (111) 98.1 Intake and Output 06/17/18 07:00 Intake Total 575 ml Output Total 200 ml Balance 375 ml Intake Oral 575 ml Output Urine Total 200 ml Physical Exam Abdomen: Normal bowel sounds, Soft, No tenderness Heart: Regular rate Extremities: No clubbing, No cyanosis, No edema, Normal pulses General: Alert, Oriented X3, Cooperative, No acute distress HEENT: Atraumatic, PERRLA, EOMI, Mucous membr. moist/pink Lungs: Normal air movement, Other (crackes inbases) MUSCULOSKELETAL: No joint tenderness, No deformity, No swelling Neuro: Normal gait, Normal speech, Cranial nerves 3-12 NL Psych/Mental Status: Mental status NL, Mood NL Skin: No rashes, No significant lesion Diagnosis Problem List Problems Medical Problems: (1) Atrial fibrillation with RVR Status: Acute (2) Elevated troponin Status: Acute (3) Hyperglycemia Status: Acute Assessment Assessment Problems Medical Problems: (1) Atrial fibrillation with RVR Status: Acute (2) Elevated troponin Status: Acute (3) Hyperglycemia Status: Acute IMPRESSION: Influenza A lung infection 1. Episodic Atrial fibrillation with rapid ventricular response resolved. 2. Nephrotic syndrome. 3. ESRD now,Chronic kidney disease, stage 4-5.cr 6.0 4. Diabetes mellitus type 2, not controlled. 5. Hypertension. 6. Hypokalemia. 7. Metabolic acidosis. 8. Anemia due to CRF,hb 6.9 9. Noncompliance. 10 [place] type 2,elevated tropnin due to demand ischemia PLAN: perm cath today dialysis tomorrow d/c home sat after dialysis. spoke with [facility], waiting for out pt dialysis chair started on dialysis 06/14,tolerated well cr cl 11 low Tamiflu for influenza. social work consult. monitor Hb, will need Aranesp shot. uti , check urine c/s,100,000 gram neg start on po Keflex Echo good LVF. cxr -neg Plan Plan of Care Problems Medical Problems: (1) Atrial fibrillation with RVR Status: Acute (2) Elevated troponin Status: Acute (3) Hyperglycemia Status: Acute Comment Review of Relevant I have reviewed the following items allen (where applicable) has been applied. Labs Laboratory Tests Test 06/16/18 11:12 06/16/18 17:17 06/16/18 20:38 06/17/18 07:28 Glucose (Fingerstick) 253 mg/dL (70-99) 131 mg/dL (70-99) 159 mg/dL (70-99) 161 mg/dL (70-99) Test 06/17/18 09:10 Sodium Level 141 mmol/L (136-145) Potassium Level 3.8 mmol/L (3.5-5.1) Chloride Level 103 mmol/L (98-107) Carbon Dioxide Level 29 mmol/L (21-32) Anion Gap 9 (6-14) Blood Urea Nitrogen 18 mg/dL (7-20) Creatinine 3.7 mg/dL (0.6-1.0) Estimated GFR (Cockcroft-Gault) 12.8 BUN/Creatinine Ratio 5 (6-20) Glucose Level 184 mg/dL (70-99) Calcium Level 8.5 mg/dL (8.5-10.1) Total Bilirubin 0.8 mg/dL (0.2-1.0) Aspartate Amino Transf (AST/SGOT) 16 U/L (15-37) Alanine Aminotransferase (ALT/SGPT) 13 U/L (14-59) Alkaline Phosphatase 97 U/L (46-116) Total Protein 6.6 g/dL (6.4-8.2) Albumin 2.3 g/dL (3.4-5.0) Albumin/Globulin Ratio 0.5 (1.0-1.7) Microbiology 06/13/18 Urine Culture - Final, Complete 06/13/18 Urine Culture Result 1 (DAKOTA) - Final, Complete 06/13/18 Antimicrobic Susceptibility - Final, Complete Medications Current Medications Fentanyl Citrate (Fentanyl 2ml Vial) 100 mcg STK-MED ONCE .ROUTE ; Start at 09:52; Stop 06/17/18 at 09:53; Status DC Heparin Sodium (Porcine) (Heparin Sodium) 10,000 unit STK-MED ONCE .ROUTE ; Start 06/17/18 at 08:04; Stop 06/17/18 at 08:05; Status DC Lidocaine/ Epinephrine (LIDOCAINE 1%-EPI 1:100,000 Multi-Dose) 20 ml STK-MED ONCE .ROUTE ; Start 06/17/18 at 08:04; Stop 06/17/18 at 08:05; Status DC Midazolam HCl (Versed) 2 mg STK-MED ONCE .ROUTE ; Start 06/17/18 at 09:52; Stop 06/17/18 at 09:53; Status DC Vitals/I & O Vital Sign - Last 24 Hours 06/16/18 06/16/18 06/16/18 06/16/18 11:00 11:39 16:13 19:35 Temp 98.2 98.3 98.2 98.3 Pulse 70 76 Resp 16 18 B/P (MAP) 195/81 (119) 160/72 (101) Pulse Ox 93 93 90 O2 Delivery Room Air Room Air Room Air Room Air 06/16/18 06/16/18 06/16/18 06/16/18 19:50 20:20 20:20 20:23 Pulse 76 76 B/P (MAP) 160/72 160/72 O2 Delivery Nasal Cannula Room Air O2 Flow Rate 2.0 06/16/18 06/17/18 06/17/18 06/17/18 23:22 03:10 07:00 07:24 Temp 98.1 97.9 98.1 98.1 97.9 98.1 Pulse 81 71 74 Resp 19 18 B/P (MAP) 170/75 (106) 183/81 (115) 179/77 (111) Pulse Ox 95 94 92 92 O2 Delivery Nasal Cannula Nasal Cannula Nasal Cannula Nasal Cannula O2 Flow Rate 3.0 3.0 3.0 2.0 06/17/18 08:00 O2 Delivery Nasal Cannula O2 Flow Rate 2.0 Intake and Output 06/16/18 06/16/18 06/17/18 15:00 23:00 07:00 Intake Total 250 ml 125 ml 200 ml Output Total 200 ml Balance 250 ml 125 ml 0 ml YARELIS FONTENOT MD Jun 17, 2018 10:16
--- NOTE | 2018-06-17 10:41 | PDOC ---
MODERATE SEDATION ASSESSMENT RISKS/ALTERNATIVES Risks/Alternatives Risks and alternatives of this type of sedation and procedure discussed with: RISK/ALTERNATIVES: Patient H & P ON CHART H & P H & P on chart and reviewed for co-morbid conditions and appropriate labs. H&P ON CHART: Yes STATUS PREG STATUS ASSESSED: Yes MEDS/ALLERGIES REVIEWED Meds/Allergies Reviewed Medications and Allergies including time and route of recently administered narcotics and sedatives. MEDS/ALLERGIES REVIEWED: Yes ASA RATING ASA RATING: II AIRWAY ASSESSMENT Airway Assessment Airway patency, oral function limitations, presence of caps, crowns, dentures, partials, and ability to extend neck assessed. AIRWAY ASSESSMENT: Yes MALLAMPATI SCORE MALLAMPATI SCORE: II PRE-SEDATION ASSESSMENT PRE-SEDATION ASSESSMENT: Yes MARY SAHU MD Jun 17, 2018 10:41
--- NOTE | 2018-06-17 10:42 | PDOC ---
BRIEF OPERATIVE NOTE Pre-Op Diagnosis CRF Post-Op Diagnosis same Procedure Performed Temp to tunnelled HD exchange Surgeon Rufina Anesthesia Type: Conscious Sedation Findings 23cm Palindrome Tunnelled HD catheter with excellent manual flows Complications No immediate MARY SAHU MD Jun 17, 2018 10:42
[2018-06-17] MEDS ORDERED: LIDOCAINE 1%/EPI 1:100,000 20 ML VIAL. IJ ONE (10:45)
[2018-06-17] MEDS ORDERED: MIDAZOLAM HCL/PF 2 MG/2 ML VIAL. IV ONE (10:45)
[2018-06-17] MEDS ORDERED: HEPARIN for IV BOLUS 10,000 UNIT/10 ML VIAL. IART ONE (10:45)
[2018-06-17] MEDS ORDERED: fentaNYL PF VIAL 100 MCG/2 ML VIAL IV ONE (10:45)
--- NOTE | 2018-06-17 11:53 | NUR ---
SS following up with discharge planning. SS contacted [facility] twice on 06/16/2018 and received no return calls in regards to pt's dialysis chair time. SS left a message for [facility] this morning and currently have received no return calls with update. Case management notified. Pt is self pay pt. SS will continue to follow up with [facility].
--- NOTE | 2018-06-17 12:23 | PDOC ---
SUBJECTIVE ROS Denies N/V No concerns , TDC placed this am OBJECTIVE Vital Signs Vital Signs Date Time Temp Pulse Resp B/P (MAP) Pulse Ox O2 Delivery O2 Flow Rate FiO2 06/17/18 11:51 97.3 75 18 181/86 (117) 92 Nasal Cannula 3.0 97.3 I & 0 Intake and Output 06/17/18 07:00 Intake Total 575 ml Output Total 200 ml Balance 375 ml Intake Oral 575 ml Output Urine Total 200 ml PHYSICAL EXAM Physical Exam Gen- NAD HEEN: Om dry, On RA NECK: supple CVS: RRR , No rub RESP: CTA, No Acc. Muscle Use GI: BS + ve, NO Bruit, Non Tender, obese : No CVA tenderness, No Suprapubic Tenderness, No Martinez Ext- No edema DIAGNOSIS/ASSESSMENT Assessment & Plan NEW ONSET ESRD 24 ur CrCl 11 Initiated HD 06/14 HD x2 TDC placed 06/17 No Return calls from [facility] for chair time as per KIRSTEN Colon planning to dc pt tomorrow after HD and recommending to come to ER for labs and HD as needed until chair time is arranged CKD stage 4- baseline 4.5, Dr. Soto as OP She stopped meds due to lack of insurance AFIB RVR- cardiology CxR normal Hypokalemia- normal K nephrotic Syndrome- improved to 2.5 gm Flu- On Tamiflu DM II HTN- HD with UF Antihypertensives Anemia- On Aranesp Non compliance due to insurance coverage Metabolic acidosis resolved Dw Pt , RN COMMENT/RELEVANT DATA Meds Current Medications Medications (Trade) Dose Ordered Sig/Joshua Start Time Stop Time Status Last Admin Dose Admin Acetaminophen (Tylenol) 650 mg PRN Q6HRS PRN 06/12/18 11:00 Albumin Human 200 ml @ 200 mls/hr 1X PRN PRN 06/14/18 13:00 06/14/18 18:59 DC Albuterol Sulfate (Ventolin Neb Soln) 2.5 mg PRN Q2HRS PRN 06/13/18 11:30 Albuterol/ Ipratropium (Duoneb) 3 ml RTQID 06/13/18 12:00 06/17/18 11:40 3 ML Amlodipine Besylate (Norvasc) 5 mg DAILY 06/12/18 09:15 06/16/18 08:47 5 MG Aspirin (Devorah Aspirin) 325 mg 1X ONCE 06/11/18 16:45 06/11/18 16:46 DC 06/11/18 16:45 325 MG Aspirin (Ecotrin) 81 mg [id number] 06/13/18 13:00 06/16/18 08:46 81 MG Atorvastatin Calcium (Lipitor) 40 mg HS 06/12/18 21:00 06/16/18 20:19 40 MG Benzonatate (Tessalon Perle) 100 mg PRN TID PRN 06/13/18 12:45 06/13/18 22:55 100 MG Cefazolin Sodium 50 ml @ As Directed STK-MED ONCE 06/17/18 10:26 06/17/18 10:27 DC Cephalexin HCl (Keflex) 500 mg BID 06/16/18 10:00 06/16/18 20:20 500 MG Darbepoetin Aman (Aranesp) 60 mcg WEEKLYHS 06/12/18 21:00 06/12/18 21:49 60 MCG Dextrose (Dextrose 50%-Water Syringe) 12.5 gm PRN Q15MIN PRN 06/11/18 17:00 Diltiazem HCl (Cardizem Iv Push) 10 mg 1X ONCE 06/11/18 16:45 06/11/18 16:46 DC 06/11/18 16:55 10 MG Diltiazem HCl 125 mg/Dextrose 125 ml @ 5 mls/hr 1X ONCE 06/11/18 16:45 06/12/18 17:44 DC 06/11/18 17:10 5 MLS/HR Ergocalciferol (Vitamin D2) 50,000 unit WEEKLY 06/12/18 09:30 06/12/18 12:59 50,000 UNIT Famotidine (Pepcid Vial) 20 mg 1X ONCE 06/11/18 16:15 06/11/18 16:17 DC 06/11/18 16:56 20 MG Fentanyl Citrate (Fentanyl 2ml Vial) 11 mcg 1X ONCE 06/17/18 10:45 06/17/18 10:48 DC Guaifenesin (Robitussin Dm) 5 ml PRN Q6HRS PRN 06/13/18 11:15 Heparin Sodium (Porcine) (Heparin Sodium) 3,800 unit 1X ONCE 06/17/18 10:45 06/17/18 10:48 DC Hydralazine HCl (Apresoline) 50 mg BID 06/12/18 09:30 06/16/18 20:20 50 MG Info (PHARMACY MONITORING -- do not chart) 1 each PRN DAILY PRN 06/14/18 13:00 Insulin Human Lispro (HumaLOG) 0-8 UNITS TIDAC 06/12/18 11:30 06/16/18 12:20 4 UNITS Insulin Human Regular (HumuLIN R VIAL) 14 unit 1X ONCE 06/11/18 17:00 06/11/18 17:01 DC 06/11/18 17:01 14 UNIT Isosorbide Mononitrate (Imdur) 30 mg DAILY 06/12/18 09:30 06/16/18 08:45 30 MG Lidocaine/ Epinephrine (LIDOCAINE 1%-EPI 1:100,000 Multi-Dose) 20 ml 1X ONCE 06/17/18 10:45 06/17/18 10:48 DC Lidocaine/Sodium Bicarbonate (Buffered Lidocaine 1%) 4 ml 1X ONCE 06/14/18 11:30 06/14/18 11:31 DC 06/14/18 11:30 4 ML Metoprolol Succinate (Toprol Xl) 50 mg DAILY 06/12/18 09:30 06/14/18 15:07 DC 06/13/18 08:58 50 MG Metoprolol Tartrate (Lopressor) 25 mg BID 06/15/18 09:00 06/16/18 20:20 25 MG Midazolam HCl (Versed) 3 mg 1X ONCE 06/17/18 10:45 06/17/18 10:48 DC Ondansetron HCl (Zofran) 4 mg PRN Q6HRS PRN 06/12/18 11:00 06/15/18 08:37 4 MG Oseltamivir Phosphate (Tamiflu) 30 mg QTUTHSA 06/14/18 16:00 06/16/18 17:00 DC Potassium Chloride (Klor-Con) 40 meq 1X ONCE 06/14/18 17:30 06/14/18 17:31 DC 06/14/18 17:29 40 MEQ Sodium Chloride 1,000 ml @ 400 mls/hr Q2H30M PRN 06/14/18 12:51 06/15/18 00:50 DC Lab Laboratory Tests Test 06/16/18 17:17 06/16/18 20:38 06/17/18 07:28 06/17/18 09:10 Glucose (Fingerstick) 131 mg/dL (70-99) 159 mg/dL (70-99) 161 mg/dL (70-99) Sodium Level 141 mmol/L (136-145) Potassium Level 3.8 mmol/L (3.5-5.1) Chloride Level 103 mmol/L (98-107) Carbon Dioxide Level 29 mmol/L (21-32) Anion Gap 9 (6-14) Blood Urea Nitrogen 18 mg/dL (7-20) Creatinine 3.7 mg/dL (0.6-1.0) Estimated GFR (Cockcroft-Gault) 12.8 BUN/Creatinine Ratio 5 (6-20) Glucose Level 184 mg/dL (70-99) Calcium Level 8.5 mg/dL (8.5-10.1) Total Bilirubin 0.8 mg/dL (0.2-1.0) Aspartate Amino Transf (AST/SGOT) 16 U/L (15-37) Alanine Aminotransferase (ALT/SGPT) 13 U/L (14-59) Alkaline Phosphatase 97 U/L (46-116) Total Protein 6.6 g/dL (6.4-8.2) Albumin 2.3 g/dL (3.4-5.0) Albumin/Globulin Ratio 0.5 (1.0-1.7) Test 06/17/18 11:50 Glucose (Fingerstick) 191 mg/dL (70-99) Results All relevant outside records, renal labs, imaging studies, telemetry/EKG's were reviewed. HIMANSHU MCGOVERN MD Jun 17, 2018 12:23
[2018-06-17] MEDS: CEPHALEXIN 250 MG CAPSULE. PO SCH ×2 (12:50→21:08)
[2018-06-17] MEDS: ASPIRIN ENTERIC COATED 81 MG TABLET.DR. PO SCH (12:50)
[2018-06-17] MEDS: amLODIPine BESYLATE 5 MG TABLET PO SCH (12:51)
[2018-06-17] MEDS: METOPROLOL TART IMMED RELEASE 25 MG TABLET. PO SCH ×2 (12:51→21:08)
[2018-06-17] MEDS: ISOSORBIDE MONONITRATE ER 30 MG TAB.ER.24H PO SCH (12:51)
--- NOTE | 2018-06-17 14:24 | RAD ---
Procedure: Fluoroscopic guided exchange of a temporary for tunneled hemodialysis catheter, through same venous access Clinical Indication: 52-year-old requiring hemodialysis Sedation: Conscious sedation was administered with a total intraprocedural [id number] time of 21 minutes. The patient was monitored by a qualified independent observer throughout the time of sedation. Please refer to the medical record for exact doses of medications utilized to achieve moderate sedation. Antibiotics: Elements antibiotic Exposure: Kerma-Area Product: 5 Gycm2 Sterility: All elements of maximal sterile barrier technique including the use of a cap, mask, sterile gown, sterile gloves, large sterile sheet, appropriate hand hygiene, and 2% chlorhexidine for cutaneous antisepsis (or acceptable alternative antiseptic per current guidelines) were followed for this procedure. If ultrasound guidance was utilized, sterile ultrasound techniques were followed including use of a sterile probe cover. Consent: The procedure was explained in its entirety to the patient or the patients designated [employer] admissions representative by a member of the treatment team, including a discussion of the risks, benefits and commonly accepted alternatives to the procedure, as well as the expected consequences of no therapy whatsoever. Discussion of the risks included, but was not limited to, those that are most frequent and those that are rare but possibly severe or life-threatening, as well as the possibility of unforeseen complications. Technique and Findings: Following informed consent, the patient was prepped and draped in the usual sterile fashion. 1% lidocaine was used to achieve local anesthesia over the right anterior chest wall and the right neck exit site. A small dermatotomy was made. A 23 severe palindrome tunneled hemodialysis catheter was then tunneled subcutaneously to the right chest to the right neck dermatotomy. The existing temporary catheter was removed over an Amplatz wire and a large caliber peel-away sheath was placed and used to deploy the new catheter under fluoroscopic guidance such that the distal tip resided in the mid right atrium. Manual flow rates were assessed and found to be excellent. The catheter was flushed, packed with heparin, capped, and sutured to the skin. Dermabond was used to close the right neck dermatotomy. Complications: No immediate Impression: 1. Fluoroscopic guided exchange of a temporary for tunneled hemodialysis catheter through same venous access as described.
[2018-06-17] MEDS: ATORVASTATIN CALCIUM 40 MG TABLET. PO SCH (21:08)
[2018-06-18 05:56] LABS: ALBUMIN 2.4 g/dL (3.4-5.0); ALBUMIN/GLOBULIN RATIO 0.7 (1.0-1.7); CALCIUM 8.3 mg/dL (8.5-10.1); CREATININE 4.7 mg/dL (0.6-1.0); GFR 9.7; POTASSIUM 3.9 mmol/L (3.5-5.1); TOTAL BILIRUBIN 0.5 mg/dL (0.2-1.0)
[2018-06-18 07:00] VITALS: BP 182/83
[2018-06-18] MEDS ORDERED: IV NORMAL SALINE 1000ML BAG 1,000 ML IV PRN ×2 (07:10)
[2018-06-18] MEDS ORDERED: DIALYSIS PATIENT. MC PRN ×2 (07:15)
[2018-06-18] MEDS: INSULIN LISPRO 300 UNITS/3 ML INSULN.PEN. SQ SCH ×2 (07:30→11:30)
[2018-06-18] MEDS: ISOSORBIDE MONONITRATE ER 30 MG TAB.ER.24H PO SCH (07:57)
[2018-06-18] MEDS: METOPROLOL TART IMMED RELEASE 25 MG TABLET. PO SCH (07:57)
[2018-06-18 07:58] VITALS: BP 182/83
[2018-06-18] MEDS: amLODIPine BESYLATE 5 MG TABLET PO SCH (07:58)
[2018-06-18] MEDS: IPRATRPIUM/ALBUTEROL 0.5/2.5MG 3 ML NEBU. NEB SCH (08:01)
--- NOTE | 2018-06-18 10:41 | PDOC ---
PROGRESS NOTES Subjective Subjective feeling better today,seen in dialysis unit Objective Objective Vital Signs Date Time Temp Pulse Resp B/P (MAP) Pulse Ox O2 Delivery O2 Flow Rate FiO2 06/18/18 08:04 Room Air 2.0 06/18/18 07:58 79 182/83 06/18/18 07:00 98.0 28 90 98.0 Intake and Output 06/18/18 07:00 Intake Total 1120 ml Output Total 400 ml Balance 720 ml Intake Oral 1120 ml Output Urine Total 400 ml Physical Exam Abdomen: Normal bowel sounds, Soft, No tenderness Heart: Regular rate Extremities: No clubbing, No cyanosis, No edema, Normal pulses General: Alert, Oriented X3, Cooperative, No acute distress HEENT: Atraumatic, PERRLA, EOMI, Mucous membr. moist/pink Lungs: Normal air movement, Other (crackes inbases) MUSCULOSKELETAL: No joint tenderness, No deformity, No swelling Neuro: Normal gait, Normal speech, Cranial nerves 3-12 NL Psych/Mental Status: Mental status NL, Mood NL Skin: No rashes, No significant lesion Diagnosis Problem List Problems Medical Problems: (1) Atrial fibrillation with RVR Status: Acute (2) Elevated troponin Status: Acute (3) Hyperglycemia Status: Acute Assessment Assessment Problems Medical Problems: (1) Atrial fibrillation with RVR Status: Acute (2) Elevated troponin Status: Acute (3) Hyperglycemia Status: Acute IMPRESSION: Influenza A lung infection 1. Episodic Atrial fibrillation with rapid ventricular response resolved. 2. Nephrotic syndrome. 3. ESRD now,Chronic kidney disease, stage 4-5.cr 6.0 4. Diabetes mellitus type 2, not controlled. 5. Hypertension. 6. Hypokalemia. 7. Metabolic acidosis. 8. Anemia due to CRF,hb 6.[address] type 2,elevated tropnin due to demand ischemia PLAN: d/c home today. perm cath placed yesterday dialysis today d/c home sat after dialysis. spoke with [facility], waiting for out pt dialysis chair started on dialysis 06/14,tolerated well cr cl 11 low Tamiflu for influenza.done with course social work consult. monitor Hb, will need Aranesp shot. uti , check urine c/s,100,000 gram neg start on po Keflex Echo good LVF. cxr -neg Plan Plan of Care Problems Medical Problems: (1) Atrial fibrillation with RVR Status: Acute (2) Elevated troponin Status: Acute (3) Hyperglycemia Status: Acute Comment Review of Relevant I have reviewed the following items allen (where applicable) has been applied. Labs Laboratory Tests Test 06/17/18 11:50 06/17/18 16:45 06/17/18 20:47 06/18/18 05:30 Glucose (Fingerstick) 191 mg/dL (70-99) 198 mg/dL (70-99) 176 mg/dL (70-99) Sodium Level 140 mmol/L (136-145) Potassium Level 3.9 mmol/L (3.5-5.1) Chloride Level 101 mmol/L (98-107) Carbon Dioxide Level 27 mmol/L (21-32) Anion Gap 12 (6-14) Blood Urea Nitrogen 26 mg/dL (7-20) Creatinine 4.7 mg/dL (0.6-1.0) Estimated GFR (Cockcroft-Gault) 9.7 BUN/Creatinine Ratio 6 (6-20) Glucose Level 172 mg/dL (70-99) Calcium Level 8.3 mg/dL (8.5-10.1) Total Bilirubin 0.5 mg/dL (0.2-1.0) Aspartate Amino Transf (AST/SGOT) 12 U/L (15-37) Alanine Aminotransferase (ALT/SGPT) 13 U/L (14-59) Alkaline Phosphatase 95 U/L (46-116) Total Protein 6.0 g/dL (6.4-8.2) Albumin 2.4 g/dL (3.4-5.0) Albumin/Globulin Ratio 0.7 (1.0-1.7) Test 06/18/18 07:36 Glucose (Fingerstick) 161 mg/dL (70-99) Microbiology 06/13/18 Urine Culture - Final, Complete 06/13/18 Urine Culture Result 1 (DAKOTA) - Final, Complete 06/13/18 Antimicrobic Susceptibility - Final, Complete Medications Current Medications Fentanyl Citrate (Fentanyl 2ml Vial) 11 mcg 1X ONCE IV ; Start 06/17/18 at 10: 45; Stop 06/17/18 at 10:48; Status DC Heparin Sodium (Porcine) (Heparin Sodium) 3,800 unit 1X ONCE IART ; Start 06/17 at 10:45; Stop 06/17/18 at 10:48; Status DC Info (PHARMACY MONITORING -- do not chart) 1 each PRN DAILY PRN MC SEE COMMENTS ; Start 06/18/18 at 07:15; Stop 06/18/18 at 07:18; Status DC Info (PHARMACY MONITORING -- do not chart) 1 each PRN DAILY PRN MC SEE COMMENTS ; Start 06/18/18 at 07:15; Stop 06/18/18 at 07:19; Status DC Lidocaine/ Epinephrine (LIDOCAINE 1%-EPI 1:100,000 Multi-Dose) 20 ml 1X ONCE IJ ; Start 06/17/18 at 10:45; Stop 06/17/18 at 10:48; Status DC Midazolam HCl (Versed) 3 mg 1X ONCE IV ; Start 06/17/18 at 10:45; Stop at 10:48; Status DC Sodium Chloride 1,000 ml @ 400 mls/hr Q2H30M PRN IV PATENCY; Start 06/18/18 at 07:10; Stop 06/18/18 at 19:09 Sodium Chloride 1,000 ml @ 1,000 mls/hr Q1H PRN IV hypotension; Start 06/18/18 at 07:10; Stop 06/18/18 at 13:09 Vitals/I & O Vital Sign - Last 24 Hours 06/17/18 06/17/18 06/17/18 06/17/18 10:42 11:00 11:15 11:30 Pulse 78 74 74 74 Resp 18 20 18 20 B/P (MAP) 181/86 (117) 183/87 (119) 176/84 (114) Pulse Ox 98 O2 Delivery Nasal Cannula Nasal Cannula Nasal Cannula Nasal Cannula O2 Flow Rate 2.0 2.0 2.0 2.0 06/17/18 06/17/18 06/17/18 06/17/18 11:41 11:45 11:51 12:00 Temp 97.3 97.3 Pulse 75 75 76 Resp 18 B/P (MAP) 181/86 (117) 181/86 (117) 178/81 (113) Pulse Ox 92 92 O2 Delivery Nasal Cannula Nasal Cannula Nasal Cannula Nasal Cannula O2 Flow Rate 2.0 2.0 3.0 2.0 06/17/18 06/17/18 06/17/18 06/17/18 12:30 12:51 12:51 12:51 Pulse 78 75 75 75 B/P (MAP) 174/81 (112) 181/86 181/86 181/86 O2 Delivery Nasal Cannula O2 Flow Rate 2.0 06/17/18 06/17/18 06/17/18 06/17/18 12:52 13:00 14:00 14:49 Temp 97.9 97.9 Pulse 75 81 78 74 Resp 18 B/P (MAP) 181/86 189/90 (123) 133/62 (85) 118/64 (82) Pulse Ox 95 O2 Delivery Nasal Cannula Nasal Cannula Nasal Cannula O2 Flow Rate 2.0 2.0 3.0 06/17/18 06/17/18 06/17/18 06/17/18 15:37 16:00 17:00 19:20 Temp 98.7 98.7 Pulse 76 76 80 Resp 20 B/P (MAP) 178/80 (112) 138/63 (88) 140/64 (89) Pulse Ox 96 O2 Delivery Nasal Cannula Room Air O2 Flow Rate 2.0 06/17/18 06/17/18 06/17/18 06/17/18 20:00 20:05 21:08 21:08 Pulse 80 80 B/P (MAP) 140/64 140/64 O2 Delivery Room Air Nasal Cannula O2 Flow Rate 2.0 06/17/18 06/18/18 06/18/18 06/18/18 23:00 03:00 07:00 07:56 Temp 98.1 98.0 98.1 98.0 Pulse 78 69 79 79 Resp 18 28 B/P (MAP) 129/61 (83) 182/83 (116) 182/83 Pulse Ox 94 90 O2 Delivery Room Air Room Air Room Air O2 Flow Rate 2.0 06/18/18 06/18/18 06/18/18 06/18/18 07:57 07:57 07:58 08:01 Pulse 79 79 79 B/P (MAP) 182/83 182/83 182/83 O2 Delivery Room Air 06/18/18 08:04 O2 Delivery Room Air O2 Flow Rate 2.0 Intake and Output 06/17/18 06/17/18 06/18/18 15:00 23:00 07:00 Intake Total 720 ml 400 ml Output Total 300 ml 100 ml Balance 420 ml 400 ml -100 ml YARELIS FONTENOT MD Jun 18, 2018 10:41
[2018-06-18] MEDS ORDERED: ASPI-612 PO (10:46)
[2018-06-18] MEDS ORDERED: CEPH-264 PO (10:46)
--- NOTE | 2018-06-18 11:07 | PDOC ---
Provider Note Provider Note Discharge summary dictated.#[id number] YARELIS FONTENOT MD Jun 18, 2018 11:07
--- NOTE | 2018-06-18 11:24 | PDOC ---
Dialysis Progress Note Dialysis Note Dialysis Note Seen on Hemodialysis, tolerating treatment Well currenlty Vitals on Hemodialysis: 168 70 afeb General Appearance: Awake: Alert Oriented x 3 Neck: No JVD or JVP Chest: CTA [place] Heart: S1 S2 Abdomen - Soft NTND Extremities - No Edema ESRD: Dialysis as below F 180 NR 3.5 Hrs 4 K 2.5 Ca 140 Na 35 HC03 Qb 350 + Qd 500+ Heparin 0 Units Uf 2-3 Kgs or to dry weight as tolerated May give 25-50 gms of 25% Albumin if needed to maintain Hemodynamic stability Treatment plan reviewed and discussed with technical laboratory asst Vitals Vital Signs Vital Signs Date Time Temp Pulse Resp B/P (MAP) Pulse Ox O2 Delivery O2 Flow Rate FiO2 06/18/18 08:04 Room Air 2.0 06/18/18 07:58 79 182/83 06/18/18 07:00 98.0 28 90 98.0 Labs Last Labs Laboratory Tests Test 06/16/18 17:17 06/16/18 20:38 06/17/18 07:28 06/17/18 09:10 Glucose (Fingerstick) 131 mg/dL (70-99) 159 mg/dL (70-99) 161 mg/dL (70-99) Sodium Level 141 mmol/L (136-145) Potassium Level 3.8 mmol/L (3.5-5.1) Chloride Level 103 mmol/L (98-107) Carbon Dioxide Level 29 mmol/L (21-32) Anion Gap 9 (6-14) Blood Urea Nitrogen 18 mg/dL (7-20) Creatinine 3.7 mg/dL (0.6-1.0) Estimated GFR (Cockcroft-Gault) 12.8 BUN/Creatinine Ratio 5 (6-20) Glucose Level 184 mg/dL (70-99) Calcium Level 8.5 mg/dL (8.5-10.1) Total Bilirubin 0.8 mg/dL (0.2-1.0) Aspartate Amino Transf (AST/SGOT) 16 U/L (15-37) Alanine Aminotransferase (ALT/SGPT) 13 U/L (14-59) Alkaline Phosphatase 97 U/L (46-116) Total Protein 6.6 g/dL (6.4-8.2) Albumin 2.3 g/dL (3.4-5.0) Albumin/Globulin Ratio 0.5 (1.0-1.7) Test 06/17/18 11:50 06/17/18 16:45 06/17/18 20:47 06/18/18 05:30 Glucose (Fingerstick) 191 mg/dL (70-99) 198 mg/dL (70-99) 176 mg/dL (70-99) Sodium Level 140 mmol/L (136-145) Potassium Level 3.9 mmol/L (3.5-5.1) Chloride Level 101 mmol/L (98-107) Carbon Dioxide Level 27 mmol/L (21-32) Anion Gap 12 (6-14) Blood Urea Nitrogen 26 mg/dL (7-20) Creatinine 4.7 mg/dL (0.6-1.0) Estimated GFR (Cockcroft-Gault) 9.7 BUN/Creatinine Ratio 6 (6-20) Glucose Level 172 mg/dL (70-99) Calcium Level 8.3 mg/dL (8.5-10.1) Total Bilirubin 0.5 mg/dL (0.2-1.0) Aspartate Amino Transf (AST/SGOT) 12 U/L (15-37) Alanine Aminotransferase (ALT/SGPT) 13 U/L (14-59) Alkaline Phosphatase 95 U/L (46-116) Total Protein 6.0 g/dL (6.4-8.2) Albumin 2.4 g/dL (3.4-5.0) Albumin/Globulin Ratio 0.7 (1.0-1.7) Test 06/18/18 07:36 Glucose (Fingerstick) 161 mg/dL (70-99) Laboratory Tests Test 06/17/18 11:50 06/17/18 16:45 06/17/18 20:47 06/18/18 05:30 Glucose (Fingerstick) 191 mg/dL (70-99) 198 mg/dL (70-99) 176 mg/dL (70-99) Sodium Level 140 mmol/L (136-145) Potassium Level 3.9 mmol/L (3.5-5.1) Chloride Level 101 mmol/L (98-107) Carbon Dioxide Level 27 mmol/L (21-32) Anion Gap 12 (6-14) Blood Urea Nitrogen 26 mg/dL (7-20) Creatinine 4.7 mg/dL (0.6-1.0) Estimated GFR (Cockcroft-Gault) 9.7 BUN/Creatinine Ratio 6 (6-20) Glucose Level 172 mg/dL (70-99) Calcium Level 8.3 mg/dL (8.5-10.1) Total Bilirubin 0.5 mg/dL (0.2-1.0) Aspartate Amino Transf (AST/SGOT) 12 U/L (15-37) Alanine Aminotransferase (ALT/SGPT) 13 U/L (14-59) Alkaline Phosphatase 95 U/L (46-116) Total Protein 6.0 g/dL (6.4-8.2) Albumin 2.4 g/dL (3.4-5.0) Albumin/Globulin Ratio 0.7 (1.0-1.7) Test 06/18/18 07:36 Glucose (Fingerstick) 161 mg/dL (70-99) Assessment Assessment Problems Medical Problems: (1) Atrial fibrillation with RVR Status: Acute (2) Elevated troponin Status: Acute (3) Hyperglycemia Status: Acute Plan Plan of Care Problems Medical Problems: (1) Atrial fibrillation with RVR Status: Acute (2) Elevated troponin Status: Acute (3) Hyperglycemia Status: Acute BABATUNDE ANDRADE MD Jun 18, 2018 11:23
[2018-06-18] MEDS: CEPHALEXIN 250 MG CAPSULE. PO SCH (12:44)
[2018-06-18] MEDS: ASPIRIN ENTERIC COATED 81 MG TABLET.DR. PO SCH (12:44)
--- NOTE | 2018-06-18 13:09 | NUR ---
Discharge Note: DENNIS HAMMONDS [address] Discharge instructions and discharge home medications reviewed with Patient and a copy given. All questions have been answered and understanding verbalized. Instructions and handouts were given. Discontinued lines and drains. Patient discharged to home self care.
--- NOTE | 2018-06-18 14:05 | DS ---
DATE OF DISCHARGE: 06/18/2018 REASON FOR ADMISSION TO THE HOSPITAL: 1. Influenza A. 2. End-stage renal disease, nephrotic syndrome. 3. Non-ST elevation myocardial infarction. CONSULTATIONS: Dr. Soto, Dr. Veliz. PROCEDURES DONE: 1. Echocardiogram. 2. Ultrasound of kidneys. 3. Dialysis catheter placement. 4. Hemodialysis. 5. Blood transfusion. HOSPITAL COURSE: The patient is a 52-year-old female who has a history of diabetes, hypertension, nephrotic syndrome, who has been following with a kidney doctor. Her creatinine was progressively getting worse in last 1 year from 2.5 to 4.5 and now when she came to the hospital, it was 6. She was found to have cough, congestion. Influenza A was positive. She was treated with Tamiflu. The patient had a slightly elevated troponin, seen by Cardiology. Echocardiogram shows good left ventricular function and it was thought secondary to demand ischemia and kidney failure. The patient had a creatinine clearance, 24-hour urine, which shows 2 grams protein and creatinine clearance was 11. The patient was started on hemodialysis. She was given temporary dialysis catheter. After 3 days of dialysis, changed to permanent dialysis catheter and now end-stage renal disease, needs outpatient dialysis 3 times a week. Hemoglobin dropped down to 6.7, given 1 unit of packed RBC, anemia of chronic disease. She also had a urinary tract infection with E. coli and was treated with Keflex. On the whole, the patient's condition improved and she was waiting for outpatient dialysis slot, so she came to dialysis Wednesday, and Wednesday. She has had one episode of atrial fibrillation, which resolved by itself, did not need anticoagulation. FINAL DIAGNOSES: 1. Influenza A infection. 2. Urinary tract infection with Escherichia coli. 3. End-stage renal disease, started on hemodialysis. 4. End-stage renal disease, creatinine clearance 11. 5. Non-ST elevation myocardial infarction. 6. Nephrotic syndrome. 7. Diabetes. 8. Hypertension. 9. Hyperlipidemia. 10. Noncompliance. DISCHARGE INSTRUCTIONS: The patient is discharged to home. See [facility]AD for discharge medications. We will schedule for outpatient dialysis once the slots is available. Social service is working on it and case management also. The patient was treated with Tamiflu, adjusted renal dose while she was in the hospital for influenza A. YARELIS FONTENOT MD DR: DAGOBERTO/jamel JOB#: [id number] / [id number]
== END 2018-06-18 13:11 | disposition home or self-care (01) | DRG 673 ==
LOC: ER 15:38 → 2 SOUTH 16:45
PROVIDERS: ADMIT Internal Medicine; ATTEND Internal Medicine
PROC: 02H633Z Insertion of Infusion Device into Right Atrium, Percutaneous Approach (ICD-10-PCS; 2018-06-14)
PROC: B244ZZZ Ultrasonography of Right Heart (ICD-10-PCS; 2018-06-14)
PROC: 30233N1 Transfusion of Nonautologous Red Blood Cells into Peripheral Vein, Percutaneous Approach (ICD-10-PCS; 2018-06-14)
PROC: 5A1D70Z Performance of Urinary Filtration, Intermittent, Less than 6 Hours Per Day (ICD-10-PCS; 2018-06-14)
PROC: 0JH63XZ Insertion of Tunneled Vascular Access Device into Chest Subcutaneous Tissue and Fascia, Percutaneous Approach (ICD-10-PCS; 2018-06-17)
PROC: 02H633Z Insertion of Infusion Device into Right Atrium, Percutaneous Approach (ICD-10-PCS; 2018-06-17)
PROC: B2141ZZ Fluoroscopy of Right Heart using Low Osmolar Contrast (ICD-10-PCS; 2018-06-17)
PROC: B244ZZZ Ultrasonography of Right Heart (ICD-10-PCS; 2018-06-17)
PROC: 5A1D70Z Performance of Urinary Filtration, Intermittent, Less than 6 Hours Per Day (ICD-10-PCS; principal; 2018-06-18)
DX: N17.9 Acute kidney failure, unspecified (principal); I21.A1 Myocardial infarction type 2; J10.00 Influenza due to other identified influenza virus with unspecified type of pneumonia; I13.2 Hypertensive heart and chronic kidney disease with heart failure and with stage 5 chronic kidney disease, or end stage renal disease; Z68.41 Body mass index [BMI] 40.0-44.9, adult; E87.2 Acidosis; I50.32 Chronic diastolic (congestive) heart failure; N39.0 Urinary tract infection, site not specified; N18.6 End stage renal disease; N04.9 Nephrotic syndrome with unspecified morphologic changes; I48.91 Unspecified atrial fibrillation; B96.20 Unspecified Escherichia coli [E. coli] as the cause of diseases classified elsewhere; D63.1 Anemia in chronic kidney disease; E11.22 Type 2 diabetes mellitus with diabetic chronic kidney disease; E11.65 Type 2 diabetes mellitus with hyperglycemia; E66.9 Obesity, unspecified; E78.5 Hyperlipidemia, unspecified; E87.6 Hypokalemia; Z82.49 Family history of ischemic heart disease and other diseases of the circulatory system; Z83.3 Family history of diabetes mellitus; Z90.710 Acquired absence of both cervix and uterus; Z91.19 Patient's noncompliance with other medical treatment and regimen; Z99.2 Dependence on renal dialysis; Z88.0 Allergy status to penicillin; Z88.2 Allergy status to sulfonamides
CPT/HCPCS: 36415; 36556; 36581; 71045; 76770; 76937; 77001; 80048; 80053; 81001; 82553; 82575; 82962; 83540; 83550; 83690; 83735; 84100; 84156; 84484; 85025; 85610; 85730; 86704; 86706; 86850; 86900; 86901; 86920; 87086; 87186; 87340; 87804; 93005; 93306; 94640; 94760; 96361; 96365; 96372; 96375; 96376; 99152; A4215; C1750; C1892; J0881; J1815; J2405; J3490; J7030; J7620; P9016; 99285-25

== ENCOUNTER 2018-06-21 09:18 | Emergency (ER) | payer SELFPAY ==
[~2018-06-21] VITALS: Ht 170.2 cm; Wt 116.1 kg
[~2018-06-21 09:18] MED LIST changes: +ASPI-612 PO; +CEPH-264 PO
--- NOTE | 2018-06-21 09:53 | PHYS DOC ---
Past Medical History Past Medical History: Anemia, Diabetes-Type II, Hypertension, Renal Disease Past Surgical History: Hysterectomy, Other Additional Past Surgical Histo: Dilation and Curettage, dialysis access to R chest Alcohol Use: None Drug Use: None Adult General Chief Complaint Chief Complaint: OTHER COMPLAINTS HPI HPI 53-year-old female presents to ER via POV uncertain as to how to go about getting her labs and dialysis. She reports she was discharged from the hospital on Wednesday and was told by her primary care physician to come to the ER for dialysis and lab check. Patient states when she was discharged case management was attempting to assist her with set up of outpatient dialysis however she was not provided with any further instructions at time of discharge. Patient states she was admitted to the hospital and was positive for the flu and she started dialysis while in the hospital. She reports she has been feeling fine since discharge from hospital denying any new symptoms. Patient had dialysis catheter placed in a right upper chest during inpatient denies any new discomfort at site as she has had some since time of insertion. Patient denies any chest pain or shortness of air. Pt reports her box attacher is Dr. Soto. She denies f/u since discharge with either PCP or nephrol. Review of Systems Review of Systems Constitutional: Denies fever or chills [] Eyes: Denies change in visual acuity, redness, or eye pain [] HENT: Denies nasal congestion or sore throat [] Respiratory: Denies cough or shortness of breath [] Cardiovascular: No additional information not addressed in HPI [] GI: Denies abdominal pain, nausea, vomiting, bloody stools or diarrhea [] : Denies dysuria or hematuria [] Musculoskeletal: Denies back pain or joint pain [] Integument: Denies rash or skin lesions [] Neurologic: Denies headache, focal weakness or sensory changes [] Endocrine: Denies polyuria or polydipsia [] All other systems were reviewed and found to be within normal limits, except as documented in this note. Allergies Allergies Allergies Coded Allergies Type Severity Reaction Last Updated Verified Penicillins Allergy Intermediate 03/16/18 Yes Sulfa (Sulfonamide Antibiotics) Allergy Intermediate 03/16/18 Yes Physical Exam Physical Exam Constitutional: Well developed, well nourished, no acute distress, non-toxic appearance. [] HENT: Normocephalic, atraumatic, oropharynx moist, nose normal. [] Eyes: Pupils equal, conjunctiva normal, no discharge. [] Neck: Normal range of motion, no tenderness, supple, no stridor. [] Cardiovascular: Heart rate regular rhythm, no murmur [] Lungs & Thorax: Bilateral breath sounds clear to auscultation. Resp. equal/ nonlabored. Dialysis cath rt upper chest- no swelling/erythema/crepitus at site. Abdomen: Bowel sounds normal, soft/obese, no tenderness, no masses, no pulsatile masses. [] Skin: Warm, dry, no erythema, no rash. [] Back: No tenderness, no CVA tenderness. [] Extremities: No tenderness, no cyanosis, no clubbing, ROM intact, no edema. [] Neurologic: Alert and oriented X 3, normal motor function, normal sensory function, no focal deficits noted. [] Psychologic: Affect normal, judgement normal, mood normal. [] Current Patient Data Vital Signs Lab Values Laboratory Tests Test 06/21/18 09:56 White Blood Count 9.1 x10^3/uL (4.0-11.0) Red Blood Count 3.17 x10^6/uL (3.50-5.40) L Hemoglobin 9.0 g/dL (12.0-15.5) L Hematocrit 26.4 % (36.0-47.0) L Mean Corpuscular Volume 83 fL (79-100) Mean Corpuscular Hemoglobin 29 pg (25-35) Mean Corpuscular Hemoglobin Concent 34 g/dL (31-37) Red Cell Distribution Width 13.9 % (11.5-14.5) Platelet Count 348 x10^3/uL (140-400) Neutrophils (%) (Auto) 73 % (31-73) Lymphocytes (%) (Auto) 15 % (24-48) L Monocytes (%) (Auto) 8 % (0-9) Eosinophils (%) (Auto) 3 % (0-3) Basophils (%) (Auto) 0 % (0-3) Neutrophils # (Auto) 6.7 x10^3uL (1.8-7.7) Lymphocytes # (Auto) 1.4 x10^3/uL (1.0-4.8) Monocytes # (Auto) 0.7 x10^3/uL (0.0-1.1) Eosinophils # (Auto) 0.3 x10^3/uL (0.0-0.7) Basophils # (Auto) 0.0 x10^3/uL (0.0-0.2) Sodium Level 134 mmol/L (136-145) L Potassium Level 3.5 mmol/L (3.5-5.1) Chloride Level 97 mmol/L (98-107) L Carbon Dioxide Level 26 mmol/L (21-32) Anion Gap 11 (6-14) Blood Urea Nitrogen 38 mg/dL (7-20) H Creatinine 5.1 mg/dL (0.6-1.0) H Estimated GFR (Cockcroft-Gault) 8.8 BUN/Creatinine Ratio 7 (6-20) Glucose Level 272 mg/dL (70-99) H Calcium Level 9.0 mg/dL (8.5-10.1) Total Bilirubin 0.7 mg/dL (0.2-1.0) Aspartate Amino Transferase (AST) 19 U/L (15-37) Alanine Aminotransferase (ALT) 19 U/L (14-59) Alkaline Phosphatase 114 U/L (46-116) Total Protein 7.6 g/dL (6.4-8.2) Albumin 2.9 g/dL (3.4-5.0) L Albumin/Globulin Ratio 0.6 (1.0-1.7) L Laboratory Tests 06/21/18 09:56 Laboratory Tests 06/21/18 09:56 EKG EKG [] Radiology/Procedures Radiology/Procedures [] Course & Med Decision Making Course & Med Decision Making Pertinent Labs reviewed. (See chart for details) 1045: Patient was evaluated in the ER for uncertainty as to if she needed dialysis or what her labs were. She was discharged from the hospital on Wednesday and reports she was told by Dr. Colon her PCP to come to ER for labs and dialysis. Labs were obtained- her H&H 9.0/26.4 improved from last results in her records- K+ NL at 3.5 BUN/Cr at 38/5.1. Glucose 272 with NL anion gap at 11. Pt continues to deny any complaints. Case management was paged in hopes to have them assist pt with setting up outpt dialysis as in discharge notes that was discussed. Call placed to Dr. Colon to discuss pt's case/lab results. 1112: Spoke with Dr. Colon and discussed pt's case/lab results- will discharge pt home as her K+ is NL and have her f/u at his office and with her box attacher Dr. Soto for further care/evaluation. This was discussed with pt along with plans for home discharge. Pt at time of discussion is in no distress. Case management has not called back- pt is comfortable with home discharge as she plans to f/u with Dr. Colon and Dr. Soto. Education provided on signs and symptoms to return to ER. Discharge instructions were discussed. Dragon Disclaimer Dragon Disclaimer This electronic medical record was generated, in whole or in part, using a voice recognition dictation system. Departure Departure Impression: Primary Impression: Routine lab draw Disposition: HOME, SELF-CARE Condition: STABLE Referrals: YARELIS COLON MD (PCP) Patient Instructions: Blood Tests Additional Instructions: As discussed follow-up with Dr. Colon and Dr. Soto- call and schedule appointment as soon as possible. Your potassium was 3.5 and you renal functions were BUN 38 and creatinine 5.1 CHRISTIANO KATZ APRN Jun 21, 2018 09:53
[2018-06-21 10:05] LABS: BASO % 0 % (0-3); EOS # 0.3 x10^3/uL (0.0-0.7); EOS % 3 % (0-3); HEMATOCRIT 26.4 % (36.0-47.0); LYMPH # 1.4 x10^3/uL (1.0-4.8); LYMPH % 15 % (24-48); MEAN CORPUSCULAR HEMOGLOBIN 29 pg (25-35); MEAN CORPUSCULAR HGB CONC 34 g/dL (31-37); MEAN CORPUSCULAR VOLUME 83 fL (79-100); MONO # 0.7 x10^3/uL (0.0-1.1); MONO % 8 % (0-9); NEUT # 6.7 x10^3uL (1.8-7.7); NEUT % 73 % (31-73); PLATELET COUNT 348 x10^3/uL (140-400); RED BLOOD COUNT 3.17 x10^6/uL (3.50-5.40); RED CELL DISTRIBUTION WIDTH 13.9 % (11.5-14.5); WHITE BLOOD COUNT 9.1 x10^3/uL (4.0-11.0)
[2018-06-21 10:12] LABS: CREATININE 5.1 mg/dL (0.6-1.0); GFR 8.8; POTASSIUM 3.5 mmol/L (3.5-5.1)
[2018-06-21 10:20] LABS: ALBUMIN 2.9 g/dL (3.4-5.0); ALBUMIN/GLOBULIN RATIO 0.6 (1.0-1.7); TOTAL BILIRUBIN 0.7 mg/dL (0.2-1.0); TOTAL PROTEIN 7.6 g/dL (6.4-8.2)
[2018-06-21 11:20] VITALS: BP 130/81
== END 2018-06-21 11:36 | disposition home or self-care (01) ==
LOC: ER 09:18
DX: I12.0 Hypertensive chronic kidney disease with stage 5 chronic kidney disease or end stage renal disease (principal); E11.22 Type 2 diabetes mellitus with diabetic chronic kidney disease; N18.6 End stage renal disease; Z99.2 Dependence on renal dialysis; Z13.0 Encounter for screening for diseases of the blood and blood-forming organs and certain disorders involving the immune mechanism; Z45.09 Encounter for adjustment and management of other cardiac device; E11.9 Type 2 diabetes mellitus without complications; I10 Essential (primary) hypertension; Z90.710 Acquired absence of both cervix and uterus; Z88.0 Allergy status to penicillin; Z88.2 Allergy status to sulfonamides
CPT/HCPCS: 36415; 80053; 85025; 99283

== ENCOUNTER 2018-06-23 11:53 | Emergency (ER) | payer SELFPAY ==
[~2018-06-23] VITALS: Ht 170.2 cm; Wt 111.6 kg
[2018-06-23 12:35] VITALS: BP 208/91
[2018-06-23 12:59] LABS: BASO # 0.1 x10^3/uL (0.0-0.2); BASO % 1 % (0-3); EOS # 0.2 x10^3/uL (0.0-0.7); EOS % 2 % (0-3); HEMATOCRIT 27.1 % (36.0-47.0); HEMOGLOBIN 9.2 g/dL (12.0-15.5); LYMPH # 1.7 x10^3/uL (1.0-4.8); LYMPH % 18 % (24-48); MEAN CORPUSCULAR HEMOGLOBIN 28 pg (25-35); MEAN CORPUSCULAR HGB CONC 34 g/dL (31-37); MEAN CORPUSCULAR VOLUME 83 fL (79-100); MONO # 0.7 x10^3/uL (0.0-1.1); MONO % 7 % (0-9); NEUT # 6.6 x10^3uL (1.8-7.7); NEUT % 72 % (31-73); PLATELET COUNT 375 x10^3/uL (140-400); RED BLOOD COUNT 3.25 x10^6/uL (3.50-5.40); RED CELL DISTRIBUTION WIDTH 14.1 % (11.5-14.5); WHITE BLOOD COUNT 9.3 x10^3/uL (4.0-11.0)
[2018-06-23 13:08] LABS: CALCIUM 9.1 mg/dL (8.5-10.1); CREATININE 4.7 mg/dL (0.6-1.0); GFR 9.7; POTASSIUM 3.7 mmol/L (3.5-5.1)
--- NOTE | 2018-06-23 13:26 | PHYS DOC ---
Past Medical History Past Medical History: Anemia, Diabetes-Type II, Hypertension, Renal Disease Past Surgical History: Hysterectomy, Other Additional Past Surgical Histo: Dilation and Curettage, dialysis access to R chest Alcohol Use: None Drug Use: None Adult General Chief Complaint Chief Complaint: OTHER COMPLAINTS HPI HPI Patient is a 53 year old female with history of diabetes type 2, hypertension, end-stage renal disease on dialysis Wednesday, , Wednesday who presents to the ED today to have labs drawn and see if she needs dialysis. Patient states the last time she was dialyzed was on Wednesday. She states she normally comes to the ED for lab check and if she needs dialysis she gets admitted. She states she is in the process of working with her social human services assistants and medicated to get her "a chair" in the dialysis center. Patient denies any symptoms right now. Review of Systems Review of Systems Constitutional: Denies fever or chills [] Eyes: Denies change in visual acuity, redness, or eye pain [] HENT: Denies nasal congestion or sore throat [] Respiratory: Denies cough or shortness of breath [] Cardiovascular: No additional information not addressed in HPI [] GI: Denies abdominal pain, nausea, vomiting, bloody stools or diarrhea [] : Denies dysuria or hematuria [] Musculoskeletal: Denies back pain or joint pain [] Integument: Denies rash or skin lesions [] Neurologic: Denies headache, focal weakness or sensory changes [] Endocrine-labs to check the need for dialysis. All other systems were reviewed and found to be within normal limits, except as documented in this note. Allergies Allergies Allergies Coded Allergies Type Severity Reaction Last Updated Verified Penicillins Allergy Intermediate 03/16/18 Yes Sulfa (Sulfonamide Antibiotics) Allergy Intermediate 03/16/18 Yes Physical Exam Physical Exam Constitutional: Well developed, well nourished, no acute distress, non-toxic appearance. [] HENT: Normocephalic, atraumatic, bilateral external ears normal, oropharynx moist, no oral exudates, nose normal. [] Eyes: PERRLA, EOMI, conjunctiva normal, no discharge. [] Neck: Normal range of motion, no tenderness, supple, no stridor. [] Cardiovascular:Heart rate regular rhythm, no murmur [ Dialysis catheter noted on the right upper chest. Lungs & Thorax: Bilateral breath sounds clear to auscultation [] Abdomen: Bowel sounds normal, soft, no tenderness, no masses, no pulsatile masses. [] Skin: Warm, dry, no erythema, no rash. [] Back: No tenderness, no CVA tenderness. [] Extremities: No tenderness, no cyanosis, no clubbing, ROM intact, no edema. [] Neurologic: Alert and oriented X 3, normal motor function, normal sensory function, no focal deficits noted. [] Psychologic: Affect normal, judgement normal, mood normal. [] Current Patient Data Vital Signs Vital Signs Date Time Temp Pulse Resp B/P (MAP) Pulse Ox O2 Delivery O2 Flow Rate FiO2 06/23/18 12:35 97.8 73 16 208/91 (130) 99 Room Air 97.8 Lab Values Laboratory Tests Test 06/23/18 12:42 White Blood Count 9.3 x10^3/uL (4.0-11.0) Red Blood Count 3.25 x10^6/uL (3.50-5.40) L Hemoglobin 9.2 g/dL (12.0-15.5) L Hematocrit 27.1 % (36.0-47.0) L Mean Corpuscular Volume 83 fL (79-100) Mean Corpuscular Hemoglobin 28 pg (25-35) Mean Corpuscular Hemoglobin Concent 34 g/dL (31-37) Red Cell Distribution Width 14.1 % (11.5-14.5) Platelet Count 375 x10^3/uL (140-400) Neutrophils (%) (Auto) 72 % (31-73) Lymphocytes (%) (Auto) 18 % (24-48) L Monocytes (%) (Auto) 7 % (0-9) Eosinophils (%) (Auto) 2 % (0-3) Basophils (%) (Auto) 1 % (0-3) Neutrophils # (Auto) 6.6 x10^3uL (1.8-7.7) Lymphocytes # (Auto) 1.7 x10^3/uL (1.0-4.8) Monocytes # (Auto) 0.7 x10^3/uL (0.0-1.1) Eosinophils # (Auto) 0.2 x10^3/uL (0.0-0.7) Basophils # (Auto) 0.1 x10^3/uL (0.0-0.2) Sodium Level 136 mmol/L (136-145) Potassium Level 3.7 mmol/L (3.5-5.1) Chloride Level 96 mmol/L (98-107) L Carbon Dioxide Level 25 mmol/L (21-32) Anion Gap 15 (6-14) H Blood Urea Nitrogen 48 mg/dL (7-20) H Creatinine 4.7 mg/dL (0.6-1.0) H Estimated GFR (Cockcroft-Gault) 9.7 Glucose Level 248 mg/dL (70-99) H Calcium Level 9.1 mg/dL (8.5-10.1) Laboratory Tests 06/23/18 12:42 Laboratory Tests 06/23/18 12:42 EKG EKG [] Radiology/Procedures Radiology/Procedures [] Course & Med Decision Making Course & Med Decision Making Pertinent Labs and Imaging studies reviewed. (See chart for details) This is a 53-year-old female patient on dialysis Wednesday presenting today to have labs checked to make sure she does not need dialysis. Last time she was dialyzed was Wednesday last week. Her potassium is 3.7, creatinine 4.7, BUN is 48, blood glucose 248,anion gap 15. BP 208/91. Patient does not need dialysis today. She was advised to take her insulin and blood pressure medications when she gets home. Dragon Disclaimer Dragon Disclaimer This electronic medical record was generated, in whole or in part, using a voice recognition dictation system. Departure Departure Impression: Primary Impression: Routine lab draw Additional Impressions: ESRD (end stage renal disease) HTN (hypertension) Disposition: HOME, SELF-CARE Condition: STABLE Referrals: YARELIS FONTENOT MD (PCP) follow up as soon as you can Patient Instructions: End Stage Kidney Disease Additional Instructions: You were evaluated in the emergency room, you do not need dialysis today. Ensure you are using insulin and taking your blood pressure medications. Follow- up with your doctor as soon as you can Problem Qualifiers Additional Impressions: HTN (hypertension) Hypertension type: unspecified Qualified Codes: I10 - Essential (primary) hypertension KWAKUVIVIAN Stephens PRATIK Jun 23, 2018 13:26
== END 2018-06-23 13:42 | disposition home or self-care (01) ==
LOC: ER 11:53
DX: I12.0 Hypertensive chronic kidney disease with stage 5 chronic kidney disease or end stage renal disease (principal); N18.6 End stage renal disease; E11.22 Type 2 diabetes mellitus with diabetic chronic kidney disease; Z90.710 Acquired absence of both cervix and uterus; Z99.2 Dependence on renal dialysis; Z13.0 Encounter for screening for diseases of the blood and blood-forming organs and certain disorders involving the immune mechanism; Z95.818 Presence of other cardiac implants and grafts; Z88.0 Allergy status to penicillin; Z88.2 Allergy status to sulfonamides
CPT/HCPCS: 36415; 80048; 85025; 99283

== ENCOUNTER 2018-06-25 10:31 | Emergency (ER) | payer SELFPAY ==
[~2018-06-25] VITALS: Ht 170.2 cm; Wt 111.6 kg
[2018-06-25 10:42] VITALS: BP 205/92
--- NOTE | 2018-06-25 10:56 | PHYS DOC ---
Past Medical History Past Medical History: Anemia, Diabetes-Type II, Hypertension, Renal Disease Past Surgical History: Hysterectomy, Other Additional Past Surgical Histo: Dilation and Curettage, dialysis access to R chest Alcohol Use: None Drug Use: None Adult General Chief Complaint Chief Complaint: ABNORMAL LABS HPI HPI Patient is a 53 year old female who presents for laboratory testing. Patient was discharged from the hospital approximately a week ago after severe dehydration and acute renal failure for which she needed dialysis. She had a dialysis catheter placed in her right chest during that hospitalization. She is been here Wednesday and for laboratory testing just for follow-up to ensure that she does not need another round of dialysis. She is here for that as well today. She denies any chest pain, difficulty breathing, nausea, vomiting , diarrhea.[] Review of Systems Review of Systems Constitutional: Denies fever or chills [] Eyes: Denies change in visual acuity, redness, or eye pain [] HENT: Denies nasal congestion or sore throat [] Respiratory: Denies cough or shortness of breath [] Cardiovascular: No chest pain or palpitations[] GI: Denies abdominal pain, nausea, vomiting, bloody stools or diarrhea [] : Denies dysuria or hematuria [] Musculoskeletal: Denies back pain or joint pain [] Integument: Denies rash or skin lesions [] Neurologic: Denies headache, focal weakness or sensory changes [] Endocrine: Denies polyuria or polydipsia [] All other systems were reviewed and found to be within normal limits, except as documented in this note. Allergies Allergies Allergies Coded Allergies Type Severity Reaction Last Updated Verified Penicillins Allergy Intermediate 03/16/18 Yes Sulfa (Sulfonamide Antibiotics) Allergy Intermediate 03/16/18 Yes Physical Exam Physical Exam Constitutional: Well developed, well nourished, no acute distress, non-toxic appearance. [] HENT: Normocephalic, atraumatic, bilateral external ears normal, oropharynx moist, no oral exudates, nose normal. [] Eyes: PERRLA, EOMI, conjunctiva normal, no discharge. [] Neck: Normal range of motion, no tenderness, supple, no stridor. [] Cardiovascular:Heart rate regular rhythm, no murmur [] Lungs & Thorax: Bilateral breath sounds clear to auscultation right chest dialysis catheter appears to be in place and clean and dry around the insertion site [] Abdomen: Bowel sounds normal, soft, no tenderness, no masses, no pulsatile masses. [] Skin: Warm, dry, no erythema, no rash. [] Back: No tenderness, no CVA tenderness. [] Extremities: No tenderness, no cyanosis, no clubbing, ROM intact, no edema. [] Neurologic: Alert and oriented X 3, normal motor function, normal sensory function, no focal deficits noted. [] Psychologic: Affect normal, judgement normal, mood normal. [] Current Patient Data Vital Signs Vital Signs Date Time Temp Pulse Resp B/P (MAP) Pulse Ox O2 Delivery O2 Flow Rate FiO2 06/25/18 10:42 97.8 84 18 205/92 (129) 96 Room Air 97.8 Lab Values Laboratory Tests Test 06/25/18 10:50 White Blood Count 9.5 x10^3/uL (4.0-11.0) Red Blood Count 3.08 x10^6/uL (3.50-5.40) L Hemoglobin 8.9 g/dL (12.0-15.5) L Hematocrit 25.7 % (36.0-47.0) L Mean Corpuscular Volume 83 fL (79-100) Mean Corpuscular Hemoglobin 29 pg (25-35) Mean Corpuscular Hemoglobin Concent 35 g/dL (31-37) Red Cell Distribution Width 14.0 % (11.5-14.5) Platelet Count 357 x10^3/uL (140-400) Neutrophils (%) (Auto) 71 % (31-73) Lymphocytes (%) (Auto) 19 % (24-48) L Monocytes (%) (Auto) 7 % (0-9) Eosinophils (%) (Auto) 2 % (0-3) Basophils (%) (Auto) 0 % (0-3) Neutrophils # (Auto) 6.7 x10^3uL (1.8-7.7) Lymphocytes # (Auto) 1.8 x10^3/uL (1.0-4.8) Monocytes # (Auto) 0.7 x10^3/uL (0.0-1.1) Eosinophils # (Auto) 0.2 x10^3/uL (0.0-0.7) Basophils # (Auto) 0.0 x10^3/uL (0.0-0.2) Sodium Level 137 mmol/L (136-145) Potassium Level 3.7 mmol/L (3.5-5.1) Chloride Level 99 mmol/L (98-107) Carbon Dioxide Level 24 mmol/L (21-32) Anion Gap 14 (6-14) Blood Urea Nitrogen 58 mg/dL (7-20) H Creatinine 4.7 mg/dL (0.6-1.0) H Estimated GFR (Cockcroft-Gault) 9.7 BUN/Creatinine Ratio 12 (6-20) Glucose Level 302 mg/dL (70-99) H Calcium Level 8.8 mg/dL (8.5-10.1) Total Bilirubin 0.4 mg/dL (0.2-1.0) Aspartate Amino Transferase (AST) 11 U/L (15-37) L Alanine Aminotransferase (ALT) 17 U/L (14-59) Alkaline Phosphatase 124 U/L (46-116) H Total Protein 7.6 g/dL (6.4-8.2) Albumin 3.0 g/dL (3.4-5.0) L Albumin/Globulin Ratio 0.7 (1.0-1.7) L Laboratory Tests 06/25/18 10:50 Laboratory Tests 06/25/18 10:50 EKG EKG [] Radiology/Procedures Radiology/Procedures [] Course & Med Decision Making Course & Med Decision Making Pertinent Labs and Imaging studies reviewed. (See chart for details) ED course: Patient arrived, was placed in bed, tolerated exam well. She had blood work obtained. After the return of the laboratory studies, this was discussed with the patient and her sister who voiced understanding. All questions were answered. Medical decision making: Patient appears to have stable kidney disease, and her creatinine is the same as it was 2 days ago. It is also improved compared to Wednesday. No evidence of hyperkalemia.[] Dragon Disclaimer Dragon Disclaimer This electronic medical record was generated, in whole or in part, using a voice recognition dictation system. Departure Departure Impression: Primary Impression: Chronic renal disease Disposition: HOME, SELF-CARE Condition: IMPROVED Referrals: YARELIS FONTENOT MD (PCP) Follow-up in 2 days Patient Instructions: Chronic Renal Insufficiency Additional Instructions: Follow-up with your regular doctor in 2 days. Return to the ER if difficulty breathing or any other concerns. Problem Qualifiers Primary Impression: Chronic renal disease Chronic kidney disease stage: stage 5, not on chronic dialysis Qualified Codes: N18.5 - Chronic kidney disease, stage 5 ZARINA COATS DO Jun 25, 2018 10:56
[2018-06-25 11:05] LABS: BASO % 0 % (0-3); EOS # 0.2 x10^3/uL (0.0-0.7); EOS % 2 % (0-3); HEMATOCRIT 25.7 % (36.0-47.0); HEMOGLOBIN 8.9 g/dL (12.0-15.5); LYMPH # 1.8 x10^3/uL (1.0-4.8); LYMPH % 19 % (24-48); MEAN CORPUSCULAR HEMOGLOBIN 29 pg (25-35); MEAN CORPUSCULAR HGB CONC 35 g/dL (31-37); MEAN CORPUSCULAR VOLUME 83 fL (79-100); MONO # 0.7 x10^3/uL (0.0-1.1); MONO % 7 % (0-9); NEUT # 6.7 x10^3uL (1.8-7.7); NEUT % 71 % (31-73); PLATELET COUNT 357 x10^3/uL (140-400); RED BLOOD COUNT 3.08 x10^6/uL (3.50-5.40); WHITE BLOOD COUNT 9.5 x10^3/uL (4.0-11.0)
[2018-06-25 11:15] LABS: CALCIUM 8.8 mg/dL (8.5-10.1); CREATININE 4.7 mg/dL (0.6-1.0); GFR 9.7; POTASSIUM 3.7 mmol/L (3.5-5.1)
[2018-06-25 11:21] LABS: ALBUMIN/GLOBULIN RATIO 0.7 (1.0-1.7); TOTAL BILIRUBIN 0.4 mg/dL (0.2-1.0); TOTAL PROTEIN 7.6 g/dL (6.4-8.2)
== END 2018-06-25 12:17 | disposition home or self-care (01) ==
LOC: ER 10:31
DX: I12.0 Hypertensive chronic kidney disease with stage 5 chronic kidney disease or end stage renal disease (principal); E11.22 Type 2 diabetes mellitus with diabetic chronic kidney disease; N18.5 Chronic kidney disease, stage 5; Z90.710 Acquired absence of both cervix and uterus; Z13.0 Encounter for screening for diseases of the blood and blood-forming organs and certain disorders involving the immune mechanism; Z95.818 Presence of other cardiac implants and grafts; Z88.0 Allergy status to penicillin; Z88.2 Allergy status to sulfonamides
CPT/HCPCS: 36415; 80053; 85025; 99283

== ENCOUNTER 2018-06-28 15:17 | Emergency (ER) | payer SELFPAY ==
[~2018-06-28] VITALS: Ht 170.2 cm; Wt 111.6 kg
[2018-06-28 15:45] VITALS: BP 210/92
--- NOTE | 2018-06-28 15:53 | PHYS DOC ---
Past Medical History Past Medical History: Anemia, Diabetes-Type II, Hypertension, Renal Disease Past Surgical History: Hysterectomy, Other Additional Past Surgical Histo: Dilation and Curettage, dialysis access to R chest Alcohol Use: None Drug Use: None Adult General Chief Complaint Chief Complaint: OTHER COMPLAINTS [facility] HPI Patient is a 53 year old female with history of diabetes, hypertension, end- stage renal disease, who presents to the ED today for lab work to see if she needs dialysis. Patient was recently diagnosed with end-stage renal disease. She typically comes to the ED every Wednesday, , Wednesday for blood work to see if she needs to be dialyzed. She does not have any symptoms. Last dialyzed 06/18/[address] Colon Review of Systems Review of Systems Constitutional: Denies fever or chills [] Eyes: Denies change in visual acuity, redness, or eye pain [] HENT: Denies nasal congestion or sore throat [] Respiratory: Denies cough or shortness of breath [] Cardiovascular: No additional information not addressed in HPI [] GI: Denies abdominal pain, nausea, vomiting, bloody stools or diarrhea [] : Denies dysuria or hematuria [] Musculoskeletal: Denies back pain or joint pain [] Integument: Denies rash or skin lesions [] Neurologic: Denies headache, focal weakness or sensory changes [] Endocrine: Lab work for dialysis need All other systems were reviewed and found to be within normal limits, except as documented in this note. Allergies Allergies Allergies Coded Allergies Type Severity Reaction Last Updated Verified Penicillins Allergy Intermediate 03/16/18 Yes Sulfa (Sulfonamide Antibiotics) Allergy Intermediate 03/16/18 Yes Physical Exam Physical Exam Constitutional: Well developed, well nourished, no acute distress, non-toxic appearance. [] HENT: Normocephalic, atraumatic, bilateral external ears normal, oropharynx moist, no oral exudates, nose normal. [] Eyes: PERRLA, EOMI, conjunctiva normal, no discharge. [] Neck: Normal range of motion, no tenderness, supple, no stridor. [] Cardiovascular:Heart rate regular rhythm, no murmur, right upper chest with a dialysis catheter. No signs of infection to the area. Lungs & Thorax: Bilateral breath sounds clear to auscultation [] Abdomen: Bowel sounds normal, soft, no tenderness, no masses, no pulsatile masses. [] Skin: Warm, dry, no erythema, no rash. [] Back: No tenderness, no CVA tenderness. [] Extremities: No tenderness, no cyanosis, no clubbing, ROM intact, no edema. [] Neurologic: Alert and oriented X 3, normal motor function, normal sensory function, no focal deficits noted. [] Psychologic: Affect normal, judgement normal, mood normal. [] Current Patient Data Vital Signs Vital Signs Date Time Temp Pulse Resp B/P (MAP) Pulse Ox O2 Delivery O2 Flow Rate FiO2 06/28/18 15:45 97.8 82 18 210/92 (131) 96 Room Air 97.8 Lab Values Laboratory Tests Test 06/28/18 15:55 White Blood Count 9.2 x10^3/uL (4.0-11.0) Red Blood Count 2.96 x10^6/uL (3.50-5.40) L Hemoglobin 8.5 g/dL (12.0-15.5) L Hematocrit 25.0 % (36.0-47.0) L Mean Corpuscular Volume 84 fL (79-100) Mean Corpuscular Hemoglobin 29 pg (25-35) Mean Corpuscular Hemoglobin Concent 34 g/dL (31-37) Red Cell Distribution Width 13.8 % (11.5-14.5) Platelet Count 347 x10^3/uL (140-400) Neutrophils (%) (Auto) 74 % (31-73) H Lymphocytes (%) (Auto) 18 % (24-48) L Monocytes (%) (Auto) 7 % (0-9) Eosinophils (%) (Auto) 1 % (0-3) Basophils (%) (Auto) 0 % (0-3) Neutrophils # (Auto) 6.8 x10^3uL (1.8-7.7) Lymphocytes # (Auto) 1.6 x10^3/uL (1.0-4.8) Monocytes # (Auto) 0.6 x10^3/uL (0.0-1.1) Eosinophils # (Auto) 0.1 x10^3/uL (0.0-0.7) Basophils # (Auto) 0.0 x10^3/uL (0.0-0.2) Sodium Level 135 mmol/L (136-145) L Potassium Level 3.8 mmol/L (3.5-5.1) Chloride Level 98 mmol/L (98-107) Carbon Dioxide Level 23 mmol/L (21-32) Anion Gap 14 (6-14) Blood Urea Nitrogen 64 mg/dL (7-20) H Creatinine 4.9 mg/dL (0.6-1.0) H Estimated GFR (Cockcroft-Gault) 9.2 BUN/Creatinine Ratio 13 (6-20) Glucose Level 499 mg/dL (70-99) H Calcium Level 9.2 mg/dL (8.5-10.1) Total Bilirubin 0.3 mg/dL (0.2-1.0) Aspartate Amino Transferase (AST) 9 U/L (15-37) L Alanine Aminotransferase (ALT) 16 U/L (14-59) Alkaline Phosphatase 120 U/L (46-116) H Total Protein 8.1 g/dL (6.4-8.2) Albumin 3.0 g/dL (3.4-5.0) L Albumin/Globulin Ratio 0.6 (1.0-1.7) L Laboratory Tests 06/28/18 15:55 Laboratory Tests 06/28/18 15:55 EKG EKG [] Radiology/Procedures Radiology/Procedures [] Course & Med Decision Making Course & Med Decision Making Pertinent Labs and Imaging studies reviewed. (See chart for details) This is a 53-year-old female patient presenting to the ED today for lab work to see if she needs dialysis. See history of present illness. Patient's potassium is 3.8, glucose is 499 with a normal anion gap, she states she is supposed to be on insulin, she states she came from a , then went out for lunch, she had mac & cheese and a cookie and did not have time to stop by home and use her insulin. Her blood pressure is 210/92, she has not taken her medications either. She does not have any cardiac or neurological symptoms. Should is requesting to be discharged and states she will use her insulin as blood pressure medications soon as she gets home. Dragon Disclaimer Dragon Disclaimer This electronic medical record was generated, in whole or in part, using a voice recognition dictation system. Departure Departure Impression: Primary Impression: ESRD (end stage renal disease) Additional Impressions: HTN (hypertension) Hyperglycemia Disposition: HOME, SELF-CARE Condition: STABLE Referrals: YARELIS COLON MD (PCP) follow up as soon as you can Patient Instructions: Hyperglycemia, Hypertension, Kidney Failure, [id number] Additional Instructions: You were evaluated in the emergency room, your glucose is elevated at 499, and your blood pressure is high too, ensure you use adequate insulin when you get home and take your blood pressure medicines. 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 Problem Qualifiers Additional Impressions: HTN (hypertension) Hypertension type: unspecified Qualified Codes: I10 - Essential (primary) hypertension VIVIAN AGUIAR PRESS TENDER Jun 28, 2018 15:53
[2018-06-28 16:09] LABS: BASO % 0 % (0-3); EOS # 0.1 x10^3/uL (0.0-0.7); EOS % 1 % (0-3); HEMOGLOBIN 8.5 g/dL (12.0-15.5); LYMPH # 1.6 x10^3/uL (1.0-4.8); LYMPH % 18 % (24-48); MEAN CORPUSCULAR HEMOGLOBIN 29 pg (25-35); MEAN CORPUSCULAR HGB CONC 34 g/dL (31-37); MEAN CORPUSCULAR VOLUME 84 fL (79-100); MONO # 0.6 x10^3/uL (0.0-1.1); MONO % 7 % (0-9); NEUT # 6.8 x10^3uL (1.8-7.7); NEUT % 74 % (31-73); PLATELET COUNT 347 x10^3/uL (140-400); RED BLOOD COUNT 2.96 x10^6/uL (3.50-5.40); RED CELL DISTRIBUTION WIDTH 13.8 % (11.5-14.5); WHITE BLOOD COUNT 9.2 x10^3/uL (4.0-11.0)
[2018-06-28 16:23] LABS: CALCIUM 9.2 mg/dL (8.5-10.1); CREATININE 4.9 mg/dL (0.6-1.0); GFR 9.2; POTASSIUM 3.8 mmol/L (3.5-5.1)
[2018-06-28 16:28] LABS: ALBUMIN/GLOBULIN RATIO 0.6 (1.0-1.7); TOTAL BILIRUBIN 0.3 mg/dL (0.2-1.0); TOTAL PROTEIN 8.1 g/dL (6.4-8.2)
== END 2018-06-28 16:40 | disposition home or self-care (01) ==
LOC: ER 15:17
DX: I12.0 Hypertensive chronic kidney disease with stage 5 chronic kidney disease or end stage renal disease (principal); E11.22 Type 2 diabetes mellitus with diabetic chronic kidney disease; E11.65 Type 2 diabetes mellitus with hyperglycemia; N18.6 End stage renal disease; Z90.710 Acquired absence of both cervix and uterus; Z95.818 Presence of other cardiac implants and grafts; Z88.0 Allergy status to penicillin; Z88.2 Allergy status to sulfonamides
CPT/HCPCS: 36415; 80053; 85025; 99283

== ENCOUNTER 2018-06-30 13:22 | Emergency (ER) | payer SELFPAY ==
[~2018-06-30] VITALS: Ht 170.2 cm; Wt 111.6 kg
[2018-06-30 14:17] LABS: BASO % 1 % (0-3); EOS # 0.2 x10^3/uL (0.0-0.7); EOS % 2 % (0-3); HEMATOCRIT 24.3 % (36.0-47.0); HEMOGLOBIN 8.2 g/dL (12.0-15.5); LYMPH # 1.6 x10^3/uL (1.0-4.8); LYMPH % 17 % (24-48); MEAN CORPUSCULAR HEMOGLOBIN 28 pg (25-35); MEAN CORPUSCULAR HGB CONC 34 g/dL (31-37); MEAN CORPUSCULAR VOLUME 84 fL (79-100); MONO # 0.6 x10^3/uL (0.0-1.1); MONO % 6 % (0-9); NEUT # 7.2 x10^3uL (1.8-7.7); NEUT % 75 % (31-73); PLATELET COUNT 339 x10^3/uL (140-400); WHITE BLOOD COUNT 9.6 x10^3/uL (4.0-11.0)
[2018-06-30 14:41] LABS: CALCIUM 9.3 mg/dL (8.5-10.1); CREATININE 4.5 mg/dL (0.6-1.0); GFR 10.2; POTASSIUM 3.6 mmol/L (3.5-5.1)
--- NOTE | 2018-06-30 14:50 | PHYS DOC ---
Past Medical History Past Medical History: Anemia, Diabetes-Type II, Hypertension, Renal Disease Past Surgical History: Hysterectomy, Other Additional Past Surgical Histo: Dilation and Curettage, dialysis access to R chest Alcohol Use: Rarely Drug Use: None Adult General Chief Complaint Chief Complaint: OTHER COMPLAINTS HPI HPI Patient is a 53 year old female with end-stage renal disease who presents to the ER for evaluation on Wednesday' for evaluation for emergent dialysis. Patient does not currently have insurance is not established with the dialysis center. Patient denies any lower extremity edema, shortness of breath, chest pain. Patient reports compliance with all medications including blood pressure and insulin. Patient denies any myalgias. Patient last required hemodialysis on June 18. Review of Systems Review of Systems Constitutional: Denies fever or chills [] HENT: Denies nasal congestion or sore throat [] Respiratory: Denies cough or shortness of breath [] Cardiovascular: No chest pain, no palpitations, no orthopnea, no LE edema GI: Denies abdominal pain, nausea, vomiting, bloody stools or diarrhea [] : Denies dysuria or hematuria [] Musculoskeletal: Denies back pain or joint pain [] Integument: Denies rash or skin lesions [] Neurologic: Denies headache, focal weakness or sensory changes [] Endocrine: Denies polyuria or polydipsia [] All other systems were reviewed and found to be within normal limits, except as documented in this note. Allergies Allergies Allergies Coded Allergies Type Severity Reaction Last Updated Verified Penicillins Allergy Intermediate 03/16/18 Yes Sulfa (Sulfonamide Antibiotics) Allergy Intermediate 03/16/18 Yes Physical Exam Physical Exam Constitutional: Obese, no acute distress, non-toxic appearance. [] HENT: Normocephalic, atraumatic, Eyes: PERRLA, EOMI, Chest: Temp cath to R chest wall, intact surrounding skin, dressing in place Neck: Normal range of motion, no tenderness, supple, no stridor. [] Cardiovascular:Heart rate regular rhythm, no murmur, trace bilateral LE edema [ ] Lungs & Thorax: Bilateral breath sounds clear to auscultation [] Abdomen: Bowel sounds normal, soft, no tenderness, no masses, no pulsatile masses. [] Extremities: No tenderness, no cyanosis, no clubbing, ROM intact Neurologic: Alert and oriented X 3, no focal deficits noted. [] Psychologic: Affect normal, judgement normal, mood normal. [] Current Patient Data Vital Signs Vital Signs Date Time Temp Pulse Resp B/P (MAP) Pulse Ox O2 Delivery O2 Flow Rate FiO2 06/30/18 13:35 97.5 79 18 150/71 (97) 95 Room Air 97.5 Lab Values Laboratory Tests Test 06/30/18 14:11 White Blood Count 9.6 x10^3/uL (4.0-11.0) Red Blood Count 2.90 x10^6/uL (3.50-5.40) L Hemoglobin 8.2 g/dL (12.0-15.5) L Hematocrit 24.3 % (36.0-47.0) L Mean Corpuscular Volume 84 fL (79-100) Mean Corpuscular Hemoglobin 28 pg (25-35) Mean Corpuscular Hemoglobin Concent 34 g/dL (31-37) Red Cell Distribution Width 14.0 % (11.5-14.5) Platelet Count 339 x10^3/uL (140-400) Neutrophils (%) (Auto) 75 % (31-73) H Lymphocytes (%) (Auto) 17 % (24-48) L Monocytes (%) (Auto) 6 % (0-9) Eosinophils (%) (Auto) 2 % (0-3) Basophils (%) (Auto) 1 % (0-3) Neutrophils # (Auto) 7.2 x10^3uL (1.8-7.7) Lymphocytes # (Auto) 1.6 x10^3/uL (1.0-4.8) Monocytes # (Auto) 0.6 x10^3/uL (0.0-1.1) Eosinophils # (Auto) 0.2 x10^3/uL (0.0-0.7) Basophils # (Auto) 0.0 x10^3/uL (0.0-0.2) Sodium Level 135 mmol/L (136-145) L Potassium Level 3.6 mmol/L (3.5-5.1) Chloride Level 99 mmol/L (98-107) Carbon Dioxide Level 24 mmol/L (21-32) Anion Gap 12 (6-14) Blood Urea Nitrogen 69 mg/dL (7-20) H Creatinine 4.5 mg/dL (0.6-1.0) H Estimated GFR (Cockcroft-Gault) 10.2 Glucose Level 401 mg/dL (70-99) H Calcium Level 9.3 mg/dL (8.5-10.1) Laboratory Tests 06/30/18 14:11 Laboratory Tests 06/30/18 14:11 EKG EKG [] Radiology/Procedures Radiology/Procedures [] Course & Med Decision Making Course & Med Decision Making Pertinent Labs and Imaging studies reviewed. (See chart for details) []1453: Potassium level does not indicate need for emergent dialysis. Patient is not significantly fluid overload on exam. Advised continue close monitoring and follow-up for continued lab draws. ER return precautions given. Patient verbalized understanding. All questions answered. Dragon Disclaimer Dragon Disclaimer This electronic medical record was generated, in whole or in part, using a voice recognition dictation system. Departure Departure Impression: Primary Impression: ESRD (end stage renal disease) Additional Impression: Hyperglycemia Disposition: 01 HOME, SELF-CARE Condition: STABLE Referrals: YARELIS FONTENOT MD (PCP) Patient Instructions: End Stage Kidney Disease Additional Instructions: Thank you for coming to [facility]. Please read the attached handouts. Please follow-up with your primary care physician. Return to the ER if your symptoms worsen or you have any other concerns. Please continue strict blood sugar management. Please log and discuss your blood sugars with your primary care doctor. Problem Qualifiers DAWSON ARCINIEGA DO Jun 30, 2018 14:50
[2018-06-30 14:58] VITALS: BP 142/71
== END 2018-06-30 15:01 | disposition home or self-care (01) ==
LOC: ER 13:22
DX: I12.0 Hypertensive chronic kidney disease with stage 5 chronic kidney disease or end stage renal disease (principal); N18.6 End stage renal disease; E11.22 Type 2 diabetes mellitus with diabetic chronic kidney disease; E11.65 Type 2 diabetes mellitus with hyperglycemia; E66.9 Obesity, unspecified; Z68.38 Body mass index [BMI] 38.0-38.9, adult; Z13.0 Encounter for screening for diseases of the blood and blood-forming organs and certain disorders involving the immune mechanism; Z95.818 Presence of other cardiac implants and grafts; Z88.0 Allergy status to penicillin; Z90.710 Acquired absence of both cervix and uterus; Z88.2 Allergy status to sulfonamides
CPT/HCPCS: 36415; 80048; 85025; 99283

== ENCOUNTER 2018-07-02 10:22 | Emergency (ER) | payer SELFPAY ==
[~2018-07-02] VITALS: Ht 170.2 cm; Wt 111.6 kg
--- NOTE | 2018-07-02 10:52 | PHYS DOC ---
Past Medical History Past Medical History: Anemia, Diabetes-Type II, Hypertension, Renal Disease Past Surgical History: Hysterectomy, Other Additional Past Surgical Histo: Dilation and Curettage, dialysis access to R chest Alcohol Use: Rarely Drug Use: None Adult General Chief Complaint Chief Complaint: OTHER COMPLAINTS HPI HPI Patient is a 53 year old female who presents for laboratory evaluation. Patient has known end-stage renal disease and was recently on dialysis. She is getting regular laboratory testing to see if there is need for repeat dialysis. Patient denies any new complaints. Denies any chest pain or palpitations.[] Review of Systems Review of Systems Constitutional: Denies fever or chills [] Eyes: Denies change in visual acuity, redness, or eye pain [] HENT: Denies nasal congestion or sore throat [] Respiratory: Denies cough or shortness of breath [] Cardiovascular: No chest pain or palpitations[] GI: Denies abdominal pain, nausea, vomiting, bloody stools or diarrhea [] : Denies dysuria or hematuria [] Musculoskeletal: Denies back pain or joint pain [] Integument: Denies rash or skin lesions [] Neurologic: Denies headache, focal weakness or sensory changes [] Endocrine: Denies polyuria or polydipsia [] All other systems were reviewed and found to be within normal limits, except as documented in this note. Allergies Allergies Allergies Coded Allergies Type Severity Reaction Last Updated Verified Penicillins Allergy Intermediate 03/16/18 Yes Sulfa (Sulfonamide Antibiotics) Allergy Intermediate 03/16/18 Yes Physical Exam Physical Exam Constitutional: Well developed, well nourished, no acute distress, non-toxic appearance. [] HENT: Normocephalic, atraumatic, bilateral external ears normal, oropharynx moist, no oral exudates, nose normal. [] Eyes: PERRLA, EOMI, conjunctiva normal, no discharge. [] Neck: Normal range of motion, no tenderness, supple, no stridor. [] Cardiovascular:Heart rate regular rhythm, no murmur [] Lungs & Thorax: Bilateral breath sounds clear to auscultation [] Abdomen: Not examined[] Skin: Warm, dry, no erythema, no rash. [] Back: No tenderness, no CVA tenderness. [] Extremities: No tenderness, no cyanosis, no clubbing, ROM intact, no edema. [] Neurologic: Alert and oriented X 3, normal motor function, normal sensory function, no focal deficits noted. [] Psychologic: Affect normal, judgement normal, mood normal. [] Current Patient Data Vital Signs Vital Signs Date Time Temp Pulse Resp B/P (MAP) Pulse Ox O2 Delivery O2 Flow Rate FiO2 07/02/18 10:38 97.9 76 16 200/92 (128) 100 Room Air 97.9 Lab Values Laboratory Tests Test 07/02/18 11:05 White Blood Count 8.8 x10^3/uL (4.0-11.0) Red Blood Count 3.00 x10^6/uL (3.50-5.40) L Hemoglobin 8.6 g/dL (12.0-15.5) L Hematocrit 25.2 % (36.0-47.0) L Mean Corpuscular Volume 84 fL (79-100) Mean Corpuscular Hemoglobin 29 pg (25-35) Mean Corpuscular Hemoglobin Concent 34 g/dL (31-37) Red Cell Distribution Width 14.1 % (11.5-14.5) Platelet Count 353 x10^3/uL (140-400) Neutrophils (%) (Auto) 77 % (31-73) H Lymphocytes (%) (Auto) 16 % (24-48) L Monocytes (%) (Auto) 5 % (0-9) Eosinophils (%) (Auto) 2 % (0-3) Basophils (%) (Auto) 0 % (0-3) Neutrophils # (Auto) 6.8 x10^3uL (1.8-7.7) Lymphocytes # (Auto) 1.4 x10^3/uL (1.0-4.8) Monocytes # (Auto) 0.4 x10^3/uL (0.0-1.1) Eosinophils # (Auto) 0.2 x10^3/uL (0.0-0.7) Basophils # (Auto) 0.0 x10^3/uL (0.0-0.2) Sodium Level 136 mmol/L (136-145) Potassium Level 3.8 mmol/L (3.5-5.1) Chloride Level 99 mmol/L (98-107) Carbon Dioxide Level 23 mmol/L (21-32) Anion Gap 14 (6-14) Blood Urea Nitrogen 66 mg/dL (7-20) H Creatinine 4.3 mg/dL (0.6-1.0) H Estimated GFR (Cockcroft-Gault) 10.7 Glucose Level 310 mg/dL (70-99) H Calcium Level 9.4 mg/dL (8.5-10.1) Laboratory Tests 07/02/18 11:05 Laboratory Tests 07/02/18 11:05 EKG EKG [] Radiology/Procedures Radiology/Procedures [] Course & Med Decision Making Course & Med Decision Making Pertinent Labs and Imaging studies reviewed. (See chart for details) ED course and medical decision making: Patient arrived, was placed in bed, and tolerated exam well. Her laboratory studies especially the potassium appears stable. Do not see an indication for dialysis at this time. Patient was discharged in improved condition after relaying the laboratory results to her and her sister. All questions were answered. Patient was released in improved condition.[] Dragon Disclaimer Dragon Disclaimer This electronic medical record was generated, in whole or in part, using a voice recognition dictation system. Departure Departure Impression: Primary Impression: ESRD (end stage renal disease) Disposition: 01 HOME, SELF-CARE Condition: IMPROVED Referrals: YARELIS FONTENOT MD (PCP) Follow up in 2 days Patient Instructions: Chronic Renal Insufficiency, Renal Diet, Pre-Dialysis Additional Instructions: Follow-up with your regular doctor in 2 days. Return to the ER if any concerns. ZARINA COATS DO Jul 02, 2018 10:52
[2018-07-02 11:29] LABS: BASO % 0 % (0-3); EOS # 0.2 x10^3/uL (0.0-0.7); EOS % 2 % (0-3); HEMATOCRIT 25.2 % (36.0-47.0); HEMOGLOBIN 8.6 g/dL (12.0-15.5); LYMPH # 1.4 x10^3/uL (1.0-4.8); LYMPH % 16 % (24-48); MEAN CORPUSCULAR HEMOGLOBIN 29 pg (25-35); MEAN CORPUSCULAR HGB CONC 34 g/dL (31-37); MEAN CORPUSCULAR VOLUME 84 fL (79-100); MONO # 0.4 x10^3/uL (0.0-1.1); MONO % 5 % (0-9); NEUT # 6.8 x10^3uL (1.8-7.7); NEUT % 77 % (31-73); PLATELET COUNT 353 x10^3/uL (140-400); RED CELL DISTRIBUTION WIDTH 14.1 % (11.5-14.5); WHITE BLOOD COUNT 8.8 x10^3/uL (4.0-11.0)
[2018-07-02 11:39] LABS: CALCIUM 9.4 mg/dL (8.5-10.1); CREATININE 4.3 mg/dL (0.6-1.0); GFR 10.7; POTASSIUM 3.8 mmol/L (3.5-5.1)
[2018-07-02 12:15] VITALS: BP 172/88
== END 2018-07-02 12:37 | disposition home or self-care (01) ==
LOC: ER 10:22
DX: I12.0 Hypertensive chronic kidney disease with stage 5 chronic kidney disease or end stage renal disease (principal); E11.22 Type 2 diabetes mellitus with diabetic chronic kidney disease; N18.6 End stage renal disease; Z99.2 Dependence on renal dialysis; Z90.710 Acquired absence of both cervix and uterus; Z95.818 Presence of other cardiac implants and grafts; Z88.0 Allergy status to penicillin; Z88.2 Allergy status to sulfonamides
CPT/HCPCS: 36415; 80048; 85025; 99283

== ENCOUNTER 2018-07-05 09:35 | Emergency (ER) | payer SELFPAY ==
[~2018-07-05] VITALS: Ht 170.2 cm; Wt 111.6 kg
[2018-07-05 09:40] VITALS: BP 194/75
[2018-07-05 10:42] LABS: BASO % 1 % (0-3); EOS # 0.3 x10^3/uL (0.0-0.7); EOS % 3 % (0-3); HEMATOCRIT 24.9 % (36.0-47.0); HEMOGLOBIN 8.5 g/dL (12.0-15.5); LYMPH # 1.7 x10^3/uL (1.0-4.8); LYMPH % 18 % (24-48); MEAN CORPUSCULAR HEMOGLOBIN 29 pg (25-35); MEAN CORPUSCULAR HGB CONC 34 g/dL (31-37); MEAN CORPUSCULAR VOLUME 84 fL (79-100); MONO # 0.6 x10^3/uL (0.0-1.1); MONO % 6 % (0-9); NEUT % 73 % (31-73); PLATELET COUNT 306 x10^3/uL (140-400); RED BLOOD COUNT 2.96 x10^6/uL (3.50-5.40); WHITE BLOOD COUNT 9.5 x10^3/uL (4.0-11.0)
[2018-07-05 10:58] LABS: CALCIUM 9.4 mg/dL (8.5-10.1); GFR 11.7; POTASSIUM 3.9 mmol/L (3.5-5.1)
[2018-07-05 11:04] LABS: ALBUMIN 2.8 g/dL (3.4-5.0); ALBUMIN/GLOBULIN RATIO 0.6 (1.0-1.7); TOTAL BILIRUBIN 0.4 mg/dL (0.2-1.0); TOTAL PROTEIN 7.5 g/dL (6.4-8.2)
--- NOTE | 2018-07-05 11:34 | PHYS DOC ---
Past Medical History Past Medical History: Anemia, Diabetes-Type II, Hypertension, Renal Disease Past Surgical History: Hysterectomy, Other Additional Past Surgical Histo: Dilation and Curettage, dialysis access to R chest Alcohol Use: Rarely Drug Use: None Adult General Chief Complaint Chief Complaint: OTHER COMPLAINTS [facility] HPI Patient is a 53 year old female with history of diabetes, hypertension, end- stage renal disease, who presents to the ED today for lab work to see if she needs dialysis. She typically comes to the ED every Wednesday, , Wednesday for blood work to see if she needs to be dialyzed. She does not have any symptoms. Last dialyzed 06/18/2018. Patient has no complaints today. Review of Systems Review of Systems Constitutional: Denies fever or chills [] Eyes: Denies change in visual acuity, redness, or eye pain [] HENT: Denies nasal congestion or sore throat [] Respiratory: Denies cough or shortness of breath [] Cardiovascular: No additional information not addressed in HPI [] GI: Denies abdominal pain, nausea, vomiting, bloody stools or diarrhea [] : Denies dysuria or hematuria [] Musculoskeletal: Denies back pain or joint pain [] Integument: Denies rash or skin lesions [] Neurologic: Denies headache, focal weakness or sensory changes [] Endocrine:ESRD All other systems were reviewed and found to be within normal limits, except as documented in this note. Allergies Allergies Allergies Coded Allergies Type Severity Reaction Last Updated Verified Penicillins Allergy Intermediate 03/16/18 Yes Sulfa (Sulfonamide Antibiotics) Allergy Intermediate 03/16/18 Yes Physical Exam Physical Exam Constitutional: Well developed, well nourished, no acute distress, non-toxic appearance. [] HENT: Normocephalic, atraumatic, bilateral external ears normal, oropharynx moist, no oral exudates, nose normal. [] Eyes: PERRLA, EOMI, conjunctiva normal, no discharge. [] Neck: Normal range of motion, no tenderness, supple, no stridor. [] Cardiovascular:Heart rate regular rhythm, no murmur. Right upper chest a dialysis catheter Lungs & Thorax: Bilateral breath sounds clear to auscultation [] Abdomen: Bowel sounds normal, soft, no tenderness, no masses, no pulsatile masses. [] Skin: Warm, dry, no erythema, no rash. [] Back: No tenderness, no CVA tenderness. [] Extremities: No tenderness, no cyanosis, no clubbing, ROM intact, no edema. [] Neurologic: Alert and oriented X 3, normal motor function, normal sensory function, no focal deficits noted. [] Psychologic: Affect normal, judgement normal, mood normal. [] Current Patient Data Vital Signs Vital Signs Date Time Temp Pulse Resp B/P (MAP) Pulse Ox O2 Delivery O2 Flow Rate FiO2 07/05/18 09:40 97.6 83 20 194/75 (114) 99 Room Air 97.6 Lab Values Laboratory Tests Test 07/05/18 10:35 White Blood Count 9.5 x10^3/uL (4.0-11.0) Red Blood Count 2.96 x10^6/uL (3.50-5.40) L Hemoglobin 8.5 g/dL (12.0-15.5) L Hematocrit 24.9 % (36.0-47.0) L Mean Corpuscular Volume 84 fL (79-100) Mean Corpuscular Hemoglobin 29 pg (25-35) Mean Corpuscular Hemoglobin Concent 34 g/dL (31-37) Red Cell Distribution Width 14.0 % (11.5-14.5) Platelet Count 306 x10^3/uL (140-400) Neutrophils (%) (Auto) 73 % (31-73) Lymphocytes (%) (Auto) 18 % (24-48) L Monocytes (%) (Auto) 6 % (0-9) Eosinophils (%) (Auto) 3 % (0-3) Basophils (%) (Auto) 1 % (0-3) Neutrophils # (Auto) 7.0 x10^3uL (1.8-7.7) Lymphocytes # (Auto) 1.7 x10^3/uL (1.0-4.8) Monocytes # (Auto) 0.6 x10^3/uL (0.0-1.1) Eosinophils # (Auto) 0.3 x10^3/uL (0.0-0.7) Basophils # (Auto) 0.0 x10^3/uL (0.0-0.2) Sodium Level 135 mmol/L (136-145) L Potassium Level 3.9 mmol/L (3.5-5.1) Chloride Level 98 mmol/L (98-107) Carbon Dioxide Level 22 mmol/L (21-32) Anion Gap 15 (6-14) H Blood Urea Nitrogen 64 mg/dL (7-20) H Creatinine 4.0 mg/dL (0.6-1.0) H Estimated GFR (Cockcroft-Gault) 11.7 BUN/Creatinine Ratio 16 (6-20) Glucose Level 376 mg/dL (70-99) H Calcium Level 9.4 mg/dL (8.5-10.1) Total Bilirubin 0.4 mg/dL (0.2-1.0) Aspartate Amino Transferase (AST) 10 U/L (15-37) L Alanine Aminotransferase (ALT) 12 U/L (14-59) L Alkaline Phosphatase 129 U/L (46-116) H Total Protein 7.5 g/dL (6.4-8.2) Albumin 2.8 g/dL (3.4-5.0) L Albumin/Globulin Ratio 0.6 (1.0-1.7) L Laboratory Tests 07/05/18 10:35 Laboratory Tests 07/05/18 10:35 EKG EKG [] Radiology/Procedures Radiology/Procedures [] Course & Med Decision Making Course & Med Decision Making Pertinent Labs and Imaging studies reviewed. (See chart for details) This is a 53-year-old female patient presenting to the ED today for lab work to see if she needs dialysis. She usually comes every Wednesday and Wednesday for her lab work. Potassium is 4.8, the rest of her labs are negative for any acute findings. Patient was discharged to home. Dragon Disclaimer Dragon Disclaimer This electronic medical record was generated, in whole or in part, using a voice recognition dictation system. Departure Departure Impression: Primary Impression: HTN (hypertension) Additional Impressions: ESRD (end stage renal disease) Routine lab draw Hyperglycemia Disposition: HOME, SELF-CARE Condition: STABLE Referrals: YARELIS FONTENOT MD (PCP) follow up next week CECI PICHARDO MD follow up next week Patient Instructions: End Stage Kidney Disease Additional Instructions: You were evaluated in the emergency room for dialysis needs. We highly encouraged you to follow-up with Dr. Pichardo and your primary care doctor. Problem Qualifiers Primary Impression: HTN (hypertension) Hypertension type: unspecified Qualified Codes: I10 - Essential (primary) hypertension VIVIAN AGUIAR APRN Jul 05, 2018 11:34
== END 2018-07-05 12:22 | disposition home or self-care (01) ==
LOC: ER 09:35
DX: I12.0 Hypertensive chronic kidney disease with stage 5 chronic kidney disease or end stage renal disease (principal); E11.22 Type 2 diabetes mellitus with diabetic chronic kidney disease; E11.65 Type 2 diabetes mellitus with hyperglycemia; N18.6 End stage renal disease; Z90.710 Acquired absence of both cervix and uterus; Z95.818 Presence of other cardiac implants and grafts; Z88.0 Allergy status to penicillin; Z88.2 Allergy status to sulfonamides
CPT/HCPCS: 36415; 80053; 85025; 99283

== ENCOUNTER 2018-07-07 10:20 | Emergency (ER) | payer SELFPAY ==
[~2018-07-07] VITALS: Ht 170.2 cm; Wt 111.6 kg
[2018-07-07 12:00] VITALS: BP 180/99
--- NOTE | 2018-07-07 13:08 | PHYS DOC ---
Past Medical History Past Medical History: Anemia, Diabetes-Type II, Hypertension, Renal Disease Past Surgical History: Hysterectomy, Other Additional Past Surgical Histo: Dilation and Curettage, dialysis access to R chest Alcohol Use: Rarely Drug Use: None Adult General Chief Complaint Chief Complaint: DIALYSIS PROBLEM HPI HPI Patient is a 53-year-old female who presents to the emergency department, apparently to see if she needs dialysis. In the past, the hospital has arranged for patient's without access to dialysis services to come to the emergency Department regularly for lab checks, to see if analysis is emergently needed. The patient states she was hospitalized for influenza at the end of May, and received 3 dialysis treatments in the hospital. Her last dialysis treatment was June 18 in the hospital. She has been coming to the emergency Department apparently 3 times a week to see if her blood tests more emergent dialysis. She has no complaints at this time. She denies any chest pain or shortness of breath, dizziness or lightheadedness, numbness or weakness. He has been urinating normally. There are no alleviating or exacerbating factors to her symptoms. Review of Systems Review of Systems Constitutional: Denies fever or chills [] Eyes: Denies change in visual acuity, redness, or eye pain [] HENT: Denies nasal congestion or sore throat [] Respiratory: Denies cough or shortness of breath [] Cardiovascular: The patient denies any shortness of breath, chest pain, palpitations, or orthopnea [] GI: Denies abdominal pain, nausea, vomiting, bloody stools or diarrhea [] : Denies dysuria or hematuria [] Musculoskeletal: Denies back pain or joint pain [] Integument: Denies rash or skin lesions [] Neurologic: Denies headache, focal weakness or sensory changes [] Endocrine: Denies polyuria or polydipsia [] All other systems were reviewed and found to be within normal limits, except as documented in this note. Allergies Allergies Allergies Coded Allergies Type Severity Reaction Last Updated Verified Penicillins Allergy Intermediate 03/16/18 Yes Sulfa (Sulfonamide Antibiotics) Allergy Intermediate 03/16/18 Yes Physical Exam Physical Exam PHYSICAL EXAM: CONSTITUTIONAL: Well developed, well nourished HEAD: normocephalic, atraumatic EENT: PERRL, EOMI. Conjunctivae normal color, sclerae non-icteric; moist mucous membranes. NECK: Supple, non-tender; no meningismus. LUNGS: Lungs CTA, breathing even and unlabored. Normal air movement. HEART: Regular rate and rhythm, no murmur CHEST: No deformity; non-tender ABDOMEN: The abdomen is soft, and non-tender, no masses or bruits. EXTREM: Normal ROM; no deformity, no calf tenderness. Normal pulses palpable in all extremities. There is no pedal edema. SKIN: No rash; no diaphoresis NEURO: Alert; normal speech and cognition; CN's grossly intact; strength grossly intact without focal deficit. BACK: No CVA TTP. Current Patient Data Vital Signs Vital Signs Date Time Temp Pulse Resp B/P (MAP) Pulse Ox O2 Delivery O2 Flow Rate FiO2 07/07/18 12:00 98.1 82 19 180/99 (126) 98 Room Air 98.1 Lab Values Laboratory Tests Test 07/07/18 12:05 White Blood Count 10.7 x10^3/uL (4.0-11.0) Red Blood Count 3.10 x10^6/uL (3.50-5.40) L Hemoglobin 8.9 g/dL (12.0-15.5) L Hematocrit 26.1 % (36.0-47.0) L Mean Corpuscular Volume 84 fL (79-100) Mean Corpuscular Hemoglobin 29 pg (25-35) Mean Corpuscular Hemoglobin Concent 34 g/dL (31-37) Red Cell Distribution Width 14.0 % (11.5-14.5) Platelet Count 340 x10^3/uL (140-400) Neutrophils (%) (Auto) 76 % (31-73) H Lymphocytes (%) (Auto) 17 % (24-48) L Monocytes (%) (Auto) 5 % (0-9) Eosinophils (%) (Auto) 3 % (0-3) Basophils (%) (Auto) 0 % (0-3) Neutrophils # (Auto) 8.0 x10^3uL (1.8-7.7) H Lymphocytes # (Auto) 1.8 x10^3/uL (1.0-4.8) Monocytes # (Auto) 0.5 x10^3/uL (0.0-1.1) Eosinophils # (Auto) 0.3 x10^3/uL (0.0-0.7) Basophils # (Auto) 0.0 x10^3/uL (0.0-0.2) Sodium Level 136 mmol/L (136-145) Potassium Level 4.0 mmol/L (3.5-5.1) Chloride Level 101 mmol/L (98-107) Carbon Dioxide Level 21 mmol/L (21-32) Anion Gap 14 (6-14) Blood Urea Nitrogen 72 mg/dL (7-20) H Creatinine 4.4 mg/dL (0.6-1.0) H Estimated GFR (Cockcroft-Gault) 10.5 Glucose Level 358 mg/dL (70-99) H Calcium Level 9.5 mg/dL (8.5-10.1) Laboratory Tests 07/07/18 12:05 Laboratory Tests 07/07/18 12:05 EKG EKG [] Radiology/Procedures Radiology/Procedures [] Course & Med Decision Making Course & Med Decision Making Pertinent Lab studies reviewed. (See chart for details) 2:35 PM: The patient's condition remained stable. She remains asymptomatic. I discussed the case with Dr. Pichardo, nephrology, who felt that the patient does not necessarily need emergency dialysis this time. He recommended continued surveillance, as well as outpatient follow-up. Discussed this with the patient, and we discussed return precautions. Dragon Disclaimer Dragon Disclaimer This electronic medical record was generated, in whole or in part, using a voice recognition dictation system. Departure Departure Impression: Primary Impression: Chronic renal failure Disposition: 01 HOME, SELF-CARE Condition: STABLE Referrals: YARELIS FONTENOT MD (PCP) CECI PICHARDO MD Patient Instructions: Chronic Renal Insufficiency RADHA MORALES MD Jul 07, 2018 13:07
[2018-07-07 13:09] LABS: BASO % 0 % (0-3); EOS # 0.3 x10^3/uL (0.0-0.7); EOS % 3 % (0-3); HEMATOCRIT 26.1 % (36.0-47.0); HEMOGLOBIN 8.9 g/dL (12.0-15.5); LYMPH # 1.8 x10^3/uL (1.0-4.8); LYMPH % 17 % (24-48); MEAN CORPUSCULAR HEMOGLOBIN 29 pg (25-35); MEAN CORPUSCULAR HGB CONC 34 g/dL (31-37); MEAN CORPUSCULAR VOLUME 84 fL (79-100); MONO # 0.5 x10^3/uL (0.0-1.1); MONO % 5 % (0-9); NEUT % 76 % (31-73); PLATELET COUNT 340 x10^3/uL (140-400); WHITE BLOOD COUNT 10.7 x10^3/uL (4.0-11.0)
[2018-07-07 13:18] LABS: CALCIUM 9.5 mg/dL (8.5-10.1); CREATININE 4.4 mg/dL (0.6-1.0); GFR 10.5
== END 2018-07-07 14:43 | disposition home or self-care (01) ==
LOC: ER 10:20
DX: E11.22 Type 2 diabetes mellitus with diabetic chronic kidney disease (principal); I12.9 Hypertensive chronic kidney disease with stage 1 through stage 4 chronic kidney disease, or unspecified chronic kidney disease; N18.9 Chronic kidney disease, unspecified; Z90.710 Acquired absence of both cervix and uterus; Z95.818 Presence of other cardiac implants and grafts; Z88.0 Allergy status to penicillin; Z88.2 Allergy status to sulfonamides
CPT/HCPCS: 36415; 80048; 85025; 99283

== ENCOUNTER 2018-07-09 08:56 | Emergency (ER) | payer SELFPAY ==
[~2018-07-09] VITALS: Ht 170.2 cm; Wt 111.6 kg
[2018-07-09 09:14] VITALS: BP 218/102
[2018-07-09] MEDS ORDERED: MUPIROCIN 2 % TOPICAL CREAM 15GM TUBE. TP STA (09:20)
--- NOTE | 2018-07-09 09:20 | PHYS DOC ---
Past Medical History Past Medical History: Anemia, Diabetes-Type II, Hypertension, Renal Disease (VIVIAN AGUIAR APRN) Past Surgical History: Hysterectomy, Other Additional Past Surgical Histo: Dilation and Curettage, dialysis access to R chest (VIVIAN AGUIAR APRN) Alcohol Use: Rarely Drug Use: None (VIVIAN AGUIAR APRN) Adult General Chief Complaint Chief Complaint: OTHER COMPLAINTS HPI HPI Patient is a 53 year old female with history of hypertension, diabetes type 2, end-stage renal disease who presents to the ED today to have labs drawn to see if she needs dialysis. She was hospitalized back in May 2018 for influenza and ended up being dialyzed 3 times while inpatient. Since then she's had to come to the emergency room to have her labs drawn every Wednesday, , Wednesday to see if she needs dialysis. She states she does not have insurance and does not have a chair at the dialysis center either. Patient does not have any symptoms right now. Her last dialysis session was 06/18/2018. PCP:Dr. Fontenot (VIVIAN AGUIAR APRN) Review of Systems Review of Systems Constitutional: Denies fever or chills [] Eyes: Denies change in visual acuity, redness, or eye pain [] HENT: Denies nasal congestion or sore throat [] Respiratory: Denies cough or shortness of breath [] Cardiovascular: No additional information not addressed in HPI [] GI: Denies abdominal pain, nausea, vomiting, bloody stools or diarrhea [] : Denies dysuria or hematuria [] Musculoskeletal: Denies back pain or joint pain [] Integument: Denies rash or skin lesions [] Neurologic: Denies headache, focal weakness or sensory changes [] Endocrine: Lab work to see if she needs dialysis All other systems were reviewed and found to be within normal limits, except as documented in this note. (VIVIAN AGUIAR APRN) Current Medications Current Medications Current Medications Medications (Trade) Dose Ordered Sig/Joshua Start Time Stop Time Status Last Admin Dose Admin Mupirocin (Bactroban) 1 nikos 1X STAT 07/09/18 09:20 07/09/18 09:27 DC 07/09/18 09:46 1 NIKOS (ARIANA GREENFIELD MD) Allergies Allergies Allergies Coded Allergies Type Severity Reaction Last Updated Verified Penicillins Allergy Intermediate 03/16/18 Yes Sulfa (Sulfonamide Antibiotics) Allergy Intermediate 03/16/18 Yes (ARIANA GREENFIELD MD) Physical Exam Physical Exam Constitutional: Well developed, well nourished, no acute distress, non-toxic appearance. [] HENT: Normocephalic, atraumatic, bilateral external ears normal, oropharynx moist, no oral exudates, nose normal. [] Eyes: PERRLA, EOMI, conjunctiva normal, no discharge. [] Neck: Normal range of motion, no tenderness, supple, no stridor. [] Cardiovascular:Heart rate regular rhythm, no murmur [] Right upper chest with a dialysis catheter. Lungs & Thorax: Bilateral breath sounds clear to auscultation [] Abdomen: Bowel sounds normal, soft, no tenderness, no masses, no pulsatile masses. [] Skin: Warm, dry, no erythema, no rash. [] Back: No tenderness, no CVA tenderness. [] Extremities: No tenderness, no cyanosis, no clubbing, ROM intact, no edema. [] Neurologic: Alert and oriented X 3, normal motor function, normal sensory function, no focal deficits noted. [] Psychologic: Affect normal, judgement normal, mood normal. [] (VIVIAN AGUIAR APRN) Current Patient Data Vital Signs Vital Signs Date Time Temp Pulse Resp B/P (MAP) Pulse Ox O2 Delivery O2 Flow Rate FiO2 07/09/18 09:14 98.4 81 16 218/102 (140) 99 Room Air 98.4 (ARIANA GREENFIELD MD) Lab Values Laboratory Tests Test 07/09/18 09:16 White Blood Count 10.9 x10^3/uL (4.0-11.0) Red Blood Count 3.00 x10^6/uL (3.50-5.40) L Hemoglobin 8.6 g/dL (12.0-15.5) L Hematocrit 25.1 % (36.0-47.0) L Mean Corpuscular Volume 84 fL (79-100) Mean Corpuscular Hemoglobin 29 pg (25-35) Mean Corpuscular Hemoglobin Concent 34 g/dL (31-37) Red Cell Distribution Width 14.0 % (11.5-14.5) Platelet Count 303 x10^3/uL (140-400) Neutrophils (%) (Auto) 72 % (31-73) Lymphocytes (%) (Auto) 19 % (24-48) L Monocytes (%) (Auto) 6 % (0-9) Eosinophils (%) (Auto) 3 % (0-3) Basophils (%) (Auto) 0 % (0-3) Neutrophils # (Auto) 7.8 x10^3uL (1.8-7.7) H Lymphocytes # (Auto) 2.1 x10^3/uL (1.0-4.8) Monocytes # (Auto) 0.6 x10^3/uL (0.0-1.1) Eosinophils # (Auto) 0.3 x10^3/uL (0.0-0.7) Basophils # (Auto) 0.0 x10^3/uL (0.0-0.2) Sodium Level 137 mmol/L (136-145) Potassium Level 4.0 mmol/L (3.5-5.1) Chloride Level 100 mmol/L (98-107) Carbon Dioxide Level 21 mmol/L (21-32) Anion Gap 16 (6-14) H Blood Urea Nitrogen 76 mg/dL (7-20) H Creatinine 4.3 mg/dL (0.6-1.0) H Estimated GFR (Cockcroft-Gault) 10.7 BUN/Creatinine Ratio 18 (6-20) Glucose Level 293 mg/dL (70-99) H Calcium Level 9.1 mg/dL (8.5-10.1) Total Bilirubin 0.3 mg/dL (0.2-1.0) Aspartate Amino Transferase (AST) 10 U/L (15-37) L Alanine Aminotransferase (ALT) 16 U/L (14-59) Alkaline Phosphatase 138 U/L (46-116) H Total Protein 7.8 g/dL (6.4-8.2) Albumin 3.1 g/dL (3.4-5.0) L Albumin/Globulin Ratio 0.7 (1.0-1.7) L Laboratory Tests 07/09/18 09:16 Laboratory Tests 07/09/18 09:16 (ARIANA GREENFIELD MD) Lab Values Laboratory Tests Test 07/09/18 09:16 White Blood Count 10.9 x10^3/uL (4.0-11.0) Red Blood Count 3.00 x10^6/uL (3.50-5.40) L Hemoglobin 8.6 g/dL (12.0-15.5) L Hematocrit 25.1 % (36.0-47.0) L Mean Corpuscular Volume 84 fL (79-100) Mean Corpuscular Hemoglobin 29 pg (25-35) Mean Corpuscular Hemoglobin Concent 34 g/dL (31-37) Red Cell Distribution Width 14.0 % (11.5-14.5) Platelet Count 303 x10^3/uL (140-400) Neutrophils (%) (Auto) 72 % (31-73) Lymphocytes (%) (Auto) 19 % (24-48) L Monocytes (%) (Auto) 6 % (0-9) Eosinophils (%) (Auto) 3 % (0-3) Basophils (%) (Auto) 0 % (0-3) Neutrophils # (Auto) 7.8 x10^3uL (1.8-7.7) H Lymphocytes # (Auto) 2.1 x10^3/uL (1.0-4.8) Monocytes # (Auto) 0.6 x10^3/uL (0.0-1.1) Eosinophils # (Auto) 0.3 x10^3/uL (0.0-0.7) Basophils # (Auto) 0.0 x10^3/uL (0.0-0.2) Sodium Level 137 mmol/L (136-145) Potassium Level 4.0 mmol/L (3.5-5.1) Chloride Level 100 mmol/L (98-107) Carbon Dioxide Level 21 mmol/L (21-32) Anion Gap 16 (6-14) H Blood Urea Nitrogen 76 mg/dL (7-20) H Creatinine 4.3 mg/dL (0.6-1.0) H Estimated GFR (Cockcroft-Gault) 10.7 BUN/Creatinine Ratio 18 (6-20) Glucose Level 293 mg/dL (70-99) H Calcium Level 9.1 mg/dL (8.5-10.1) Total Bilirubin 0.3 mg/dL (0.2-1.0) Aspartate Amino Transferase (AST) 10 U/L (15-37) L Alanine Aminotransferase (ALT) 16 U/L (14-59) Alkaline Phosphatase 138 U/L (46-116) H Total Protein 7.8 g/dL (6.4-8.2) Albumin 3.1 g/dL (3.4-5.0) L Albumin/Globulin Ratio 0.7 (1.0-1.7) L Laboratory Tests 07/09/18 09:16 Laboratory Tests 07/09/18 09:16 (VIVIAN AGUIAR APRN) EKG EKG [] (VIVIAN AGUIAR APRN) Radiology/Procedures Radiology/Procedures [] (VIVIAN AGUIAR APRN) Course & Med Decision Making Course & Med Decision Making Pertinent Labs and Imaging studies reviewed. (See chart for details) This is a 53-year-old female patient presenting to the ED today for lab draw to see if she needs dialysis. See history of present illness. Patient's potassium is 4.0, glucose 293, anion gap 16, creatinine 4.3, BUN 76. Patient does not need emergency dialysis today. Blood pressure was 218/102 with heart rate of 81 , patient states she has not taken her blood pressure medications for this morning. She states she typically comes to the hospital first to check her numbers and make sure she does not need to be dialyzed. She has not used her insulin either this morning. She promised to go home and use her medications. Her dialysis site dressing was changed today. She states she has an appointment with her PCP on July 21, 2018. (VIVIAN AGUIAR APRN) Course & Med Decision Making Staff Physician Addendum: I was working in the ER during the course of this patient's visit. I was available for consultation as needed, but I was not directly involved in the care of this patient. (ARIANA GREENFIELD MD) Dragon Disclaimer Dragon Disclaimer This electronic medical record was generated, in whole or in part, using a voice recognition dictation system. (VIVIAN AGUIAR APRN) Departure Departure Impression: Primary Impression: HTN (hypertension) Additional Impressions: Hyperglycemia ESRD (end stage renal disease) Disposition: 01 HOME, SELF-CARE Condition: STABLE Referrals: YARELIS FONTENOT MD (PCP) follow up as scheduled CECI PICHARDO MD follow up next week Patient Instructions: End Stage Kidney Disease, Hyperglycemia, [id number] Additional Instructions: You were evaluated in the emergency room, you do not need dialysis today. Your blood pressure and blood glucose were high, ensure you are taking your medications. Come back to the ED at any point you have concerning symptoms. Problem Qualifiers Primary Impression: HTN (hypertension) Hypertension type: unspecified Qualified Codes: I10 - Essential (primary) hypertension VIVIAN AGUIAR APRN Jul 09, 2018 09:20 ARIANA GREENFIELD MD Jul 09, 2018 10:19
[2018-07-09 09:32] LABS: CALCIUM 9.1 mg/dL (8.5-10.1); CREATININE 4.3 mg/dL (0.6-1.0); GFR 10.7
[2018-07-09 09:35] LABS: BASO % 0 % (0-3); EOS # 0.3 x10^3/uL (0.0-0.7); EOS % 3 % (0-3); HEMATOCRIT 25.1 % (36.0-47.0); HEMOGLOBIN 8.6 g/dL (12.0-15.5); LYMPH # 2.1 x10^3/uL (1.0-4.8); LYMPH % 19 % (24-48); MEAN CORPUSCULAR HEMOGLOBIN 29 pg (25-35); MEAN CORPUSCULAR HGB CONC 34 g/dL (31-37); MEAN CORPUSCULAR VOLUME 84 fL (79-100); MONO # 0.6 x10^3/uL (0.0-1.1); MONO % 6 % (0-9); NEUT # 7.8 x10^3uL (1.8-7.7); NEUT % 72 % (31-73); PLATELET COUNT 303 x10^3/uL (140-400); WHITE BLOOD COUNT 10.9 x10^3/uL (4.0-11.0)
[2018-07-09 09:38] LABS: ALBUMIN 3.1 g/dL (3.4-5.0); ALBUMIN/GLOBULIN RATIO 0.7 (1.0-1.7); TOTAL BILIRUBIN 0.3 mg/dL (0.2-1.0); TOTAL PROTEIN 7.8 g/dL (6.4-8.2)
== END 2018-07-09 09:51 | disposition home or self-care (01) ==
LOC: ER 08:56
DX: I12.0 Hypertensive chronic kidney disease with stage 5 chronic kidney disease or end stage renal disease (principal); E11.65 Type 2 diabetes mellitus with hyperglycemia; E11.22 Type 2 diabetes mellitus with diabetic chronic kidney disease; N18.6 End stage renal disease; Z95.818 Presence of other cardiac implants and grafts; Z90.710 Acquired absence of both cervix and uterus; Z88.0 Allergy status to penicillin; Z88.2 Allergy status to sulfonamides
CPT/HCPCS: 36415; 80053; 85025; 99283

== ENCOUNTER 2018-07-12 08:20 | Emergency (ER) | payer SELFPAY ==
[~2018-07-12] VITALS: Ht 170.2 cm; Wt 111.6 kg
[2018-07-12 08:34] VITALS: BP 200/92
--- NOTE | 2018-07-12 08:39 | PHYS DOC ---
Past Medical History Past Medical History: Anemia, Diabetes-Type II, Hypertension, Renal Disease Past Surgical History: Hysterectomy, Other Additional Past Surgical Histo: Dilation and Curettage, dialysis access to R chest Alcohol Use: Rarely Drug Use: None Adult General Chief Complaint Chief Complaint: OTHER COMPLAINTS [facility] HPI Patient is a 53 year old female with history of hypertension, diabetes type II , end-stage renal disease who presents to the ED today to have labs drawn to see if she needs dialysis. She was hospitalized back in May 2018 for influenza and ended up being dialyzed 3 times while inpatient. Since then she's had to come to the emergency room to have her labs drawn every Wednesday, , Wednesday. She states she does not have insurance and does not have a chair at the dialysis center either. Patient does not have any symptoms right now. Her last dialysis session was 06/18/2018. Review of Systems Review of Systems Constitutional: Denies fever or chills [] Eyes: Denies change in visual acuity, redness, or eye pain [] HENT: Denies nasal congestion or sore throat [] Respiratory: Denies cough or shortness of breath [] Cardiovascular: No additional information not addressed in HPI [] GI: Denies abdominal pain, nausea, vomiting, bloody stools or diarrhea [] : Denies dysuria or hematuria [] Musculoskeletal: Denies back pain or joint pain [] Integument: Denies rash or skin lesions [] Neurologic: Denies headache, focal weakness or sensory changes [] Endocrine: labs for dialysis All other systems were reviewed and found to be within normal limits, except as documented in this note. Allergies Allergies Allergies Coded Allergies Type Severity Reaction Last Updated Verified Penicillins Allergy Intermediate 03/16/18 Yes Sulfa (Sulfonamide Antibiotics) Allergy Intermediate 03/16/18 Yes Physical Exam Physical Exam Constitutional: Well developed, well nourished, no acute distress, non-toxic appearance. [] HENT: Normocephalic, atraumatic, bilateral external ears normal, oropharynx moist, no oral exudates, nose normal. [] Eyes: PERRLA, EOMI, conjunctiva normal, no discharge. [] Neck: Normal range of motion, no tenderness, supple, no stridor. [] Cardiovascular:Heart rate regular rhythm, no murmur [] Right upper chest with a dialysis catheter. The distal sides of the catheter where it is attached to the skin appears slightly erythematous. No drainage. Patient using bacitracin on the area. Lungs & Thorax: Bilateral breath sounds clear to auscultation [] Abdomen: Bowel sounds normal, soft, no tenderness, no masses, no pulsatile masses. [] Skin: Warm, dry, no erythema, no rash. [] Back: No tenderness, no CVA tenderness. [] Extremities: No tenderness, no cyanosis, no clubbing, ROM intact, no edema. [] Neurologic: Alert and oriented X 3, normal motor function, normal sensory function, no focal deficits noted. [] Psychologic: Affect normal, judgement normal, mood normal. [] Current Patient Data Vital Signs Vital Signs Date Time Temp Pulse Resp B/P (MAP) Pulse Ox O2 Delivery O2 Flow Rate FiO2 07/12/18 08:34 97.3 88 20 200/92 (128) 99 Room Air 97.3 Lab Values Laboratory Tests Test 07/12/18 08:28 White Blood Count 11.8 x10^3/uL (4.0-11.0) H Red Blood Count 3.05 x10^6/uL (3.50-5.40) L Hemoglobin 8.8 g/dL (12.0-15.5) L Hematocrit 25.8 % (36.0-47.0) L Mean Corpuscular Volume 84 fL (79-100) Mean Corpuscular Hemoglobin 29 pg (25-35) Mean Corpuscular Hemoglobin Concent 34 g/dL (31-37) Red Cell Distribution Width 14.3 % (11.5-14.5) Platelet Count 299 x10^3/uL (140-400) Neutrophils (%) (Auto) 74 % (31-73) H Lymphocytes (%) (Auto) 18 % (24-48) L Monocytes (%) (Auto) 5 % (0-9) Eosinophils (%) (Auto) 3 % (0-3) Basophils (%) (Auto) 1 % (0-3) Neutrophils # (Auto) 8.7 x10^3uL (1.8-7.7) H Lymphocytes # (Auto) 2.1 x10^3/uL (1.0-4.8) Monocytes # (Auto) 0.5 x10^3/uL (0.0-1.1) Eosinophils # (Auto) 0.3 x10^3/uL (0.0-0.7) Basophils # (Auto) 0.1 x10^3/uL (0.0-0.2) Sodium Level 134 mmol/L (136-145) L Potassium Level 3.7 mmol/L (3.5-5.1) Chloride Level 99 mmol/L (98-107) Carbon Dioxide Level 20 mmol/L (21-32) L Anion Gap 15 (6-14) H Blood Urea Nitrogen 79 mg/dL (7-20) H Creatinine 4.2 mg/dL (0.6-1.0) H Estimated GFR (Cockcroft-Gault) 11.0 BUN/Creatinine Ratio 19 (6-20) Glucose Level 308 mg/dL (70-99) H Calcium Level 9.3 mg/dL (8.5-10.1) Total Bilirubin 0.4 mg/dL (0.2-1.0) Aspartate Amino Transferase (AST) 10 U/L (15-37) L Alanine Aminotransferase (ALT) 13 U/L (14-59) L Alkaline Phosphatase 140 U/L (46-116) H Total Protein 7.8 g/dL (6.4-8.2) Albumin 3.0 g/dL (3.4-5.0) L Albumin/Globulin Ratio 0.6 (1.0-1.7) L Laboratory Tests 07/12/18 08:28 Laboratory Tests 07/12/18 08:28 EKG EKG [] Radiology/Procedures Radiology/Procedures [] Course & Med Decision Making Course & Med Decision Making Pertinent Labs and Imaging studies reviewed. (See chart for details) This is a 53-year-old female patient with end-stage renal disease who is presenting to the ED today for lab work to see if she needs dialysis. See history of present illness. Patient states she has an appointment with the branch services manager on Wednesday this week. She also has an appointment with her PCP on 21 July 2018. CMP with potassium of 3.7, creatinine 4.2, BUN 79, blood glucose 308 100 15, patient has not used her morning insulin. She was advised to make sure she uses her insulin as as she gets home. CBC with a WBC of 11.8, hemoglobin 8.8, hematocrit 25.8, hemoglobin and hematocrit are within patient's baseline. WBC is elevated, discussed with patient possible source for this elevated white count including pneumonia, UTI, dialysis catheter, she is afebrile with temperature of 97.3. She states she's had a cough for a couple days, she is refusing any chest x-ray, she states she does not have any medical insurance and does not want to pay extra money for chest x-ray. She is requesting to be treated prophylaxis. Patient was discharged on doxycycline. She will follow-up with her doctors as noted above. Her blood pressure was 200/92 with a heart rate of 88, she has not taken her blood pressure medications for this morning, she states she usually comes to the ED first to get her labs done in case she needs dialysis, she states she was instructed not to be taking medicines before dialysis. Informed patient she needs to takes her medicine as soon as she gets home. Dragon Disclaimer Dragon Disclaimer This electronic medical record was generated, in whole or in part, using a voice recognition dictation system. Departure Departure Impression: Primary Impression: ESRD (end stage renal disease) Additional Impressions: Renal anasarca HTN (hypertension) Disposition: HOME, SELF-CARE Condition: STABLE Referrals: YARELIS FONTENOT MD (PCP) Follow-up as scheduled CECI PICHARDO MD follow up on Wednesday Patient Instructions: End Stage Kidney Disease Additional Instructions: You were see in the ED, your blood glucose and blood pressure were high, ensure you use insulin as well as take your blood pressure medications as prescribed. We put you on doxycycline, ensure you complete it. Scripts Doxycycline Hyclate (DOXYCYCLINE HYCLATE) 100 Mg Tablet 1 TAB PO BID, #14 TAB Prov: PARISAKAYVIVIAN Stephens APRN 07/12/18 Problem Qualifiers Additional Impressions: HTN (hypertension) Hypertension type: unspecified Qualified Codes: I10 - Essential (primary) hypertension VIVIAN AGUIAR APRN Jul 12, 2018 08:39
[2018-07-12 08:47] LABS: BASO # 0.1 x10^3/uL (0.0-0.2); BASO % 1 % (0-3); EOS # 0.3 x10^3/uL (0.0-0.7); EOS % 3 % (0-3); HEMATOCRIT 25.8 % (36.0-47.0); HEMOGLOBIN 8.8 g/dL (12.0-15.5); LYMPH # 2.1 x10^3/uL (1.0-4.8); LYMPH % 18 % (24-48); MEAN CORPUSCULAR HEMOGLOBIN 29 pg (25-35); MEAN CORPUSCULAR HGB CONC 34 g/dL (31-37); MEAN CORPUSCULAR VOLUME 84 fL (79-100); MONO # 0.5 x10^3/uL (0.0-1.1); MONO % 5 % (0-9); NEUT # 8.7 x10^3uL (1.8-7.7); NEUT % 74 % (31-73); PLATELET COUNT 299 x10^3/uL (140-400); RED BLOOD COUNT 3.05 x10^6/uL (3.50-5.40); RED CELL DISTRIBUTION WIDTH 14.3 % (11.5-14.5); WHITE BLOOD COUNT 11.8 x10^3/uL (4.0-11.0)
[2018-07-12 09:02] LABS: CALCIUM 9.3 mg/dL (8.5-10.1); CREATININE 4.2 mg/dL (0.6-1.0); POTASSIUM 3.7 mmol/L (3.5-5.1)
[2018-07-12 09:07] LABS: ALBUMIN/GLOBULIN RATIO 0.6 (1.0-1.7); TOTAL BILIRUBIN 0.4 mg/dL (0.2-1.0); TOTAL PROTEIN 7.8 g/dL (6.4-8.2)
[2018-07-12] MEDS ORDERED: DOXY100T PO (09:35)
== END 2018-07-12 10:00 | disposition home or self-care (01) ==
LOC: ER 08:20
DX: I12.0 Hypertensive chronic kidney disease with stage 5 chronic kidney disease or end stage renal disease (principal); E11.22 Type 2 diabetes mellitus with diabetic chronic kidney disease; N18.6 End stage renal disease; Z90.710 Acquired absence of both cervix and uterus; Z88.0 Allergy status to penicillin; Z88.2 Allergy status to sulfonamides
CPT/HCPCS: 36415; 80053; 85025; 99283

== ENCOUNTER 2019-03-15 16:20 | Emergency (ER) | payer OTHER ==
[~2019-03-15] VITALS: Ht 170.2 cm; Wt 109.8 kg
[~2019-03-15 16:20] MED LIST changes: +DOXY100T PO; +ERTA1VIA IJ; -GLIM4TAB2 PO; +GLIM4TAB4 PO; +INSU3INS SQ; +SIMV40TA18 PO; -SIMV40TA3 PO
[2019-03-15 16:45] VITALS: BP 216/95
--- NOTE | 2019-03-15 17:40 | PHYS DOC ---
Past Medical History Past Medical History: Anemia, CHF, Diabetes-Type II, High Cholesterol, Hy pertension, Renal Disease, Renal Failure Past Surgical History: Hysterectomy, Other Additional Past Surgical Histo: Dilation and Curettage, dialysis access to R chest Alcohol Use: Rarely Drug Use: None Adult General Chief Complaint Chief Complaint: OTHER COMPLAINTS HPI HPI Patient is a 53 year old female with history of diabetes type 2, hypertension, high cholesterol, end-stage kidney disease not on dialysis who presents today concerned her PICC line is not working. Patient states they've tried hanging antibiotics at home today and antibiotics will not infuse. Patient denies any other symptoms. She is on antibiotics for toe infection. Picc line was placed on Wednesday this week. Review of Systems Review of Systems Constitutional: Denies fever or chills [] Cardiovascular: No additional information not addressed in HPI [] PICC line not working GI: Denies abdominal pain, nausea, vomiting, bloody stools or diarrhea [] Musculoskeletal: Denies back pain or joint pain [] Neurologic: Denies headache, focal weakness or sensory changes [] All other systems were reviewed and found to be within normal limits, except as documented in this note. Allergies Allergies Allergies Coded Allergies Type Severity Reaction Last Updated Verified Penicillins Allergy Intermediate RED RASH (NOT HIVES) 03/14/19 Yes Sulfa (Sulfonamide Antibiotics) Allergy Intermediate 03/14/19 Yes Physical Exam Physical Exam Constitutional: Well developed, well nourished, no acute distress, non-toxic appearance. [] Cardiovascular:Heart rate regular rhythm, no murmur [] Single lumen PICC line noted on the right brachial region, no signs of infection. PICC line was flushed by RN successfully. Skin: Warm, dry, no erythema, no rash. [] Back: No tenderness, no CVA tenderness. [] Extremities: No tenderness, no cyanosis, no clubbing, ROM intact, no edema. [] Neurologic: Alert and oriented X 3, normal motor function, normal sensory function, no focal deficits noted. [] Psychologic: Affect normal, judgement normal, mood normal. [] Current Patient Data Vital Signs Vital Signs Date Time Temp Pulse Resp B/P (MAP) Pulse Ox O2 Delivery O2 Flow Rate FiO2 03/15/19 16:45 98.1 78 16 216/95 (135) 97 Room Air 98.1 EKG EKG [] Radiology/Procedures Radiology/Procedures [] Course & Med Decision Making Course & Med Decision Making Pertinent Labs and Imaging studies reviewed. (See chart for details) This is a 53-year-old male patient presenting to the ED today concerned her PICC line is not working. She's had the PICC line since Wednesday for toe infection antibiotic infusions at home. Patient's single lumen PICC line was flushed by the RN successfully. Patient was discharged to home. Dragon Disclaimer Dragon Disclaimer This electronic medical record was generated, in whole or in part, using a voice recognition dictation system. Departure Departure Impression: Primary Impression: Occluded PICC line Disposition: HOME, SELF-CARE Condition: STABLE Referrals: YARELIS FONTENOT MD (PCP) follow up as scheduled Patient Instructions: PICC Home Guide Additional Instructions: Continue doing your antibiotics at home. Keep your PICC line clean. Follow-up with your doctor as scheduled. Problem Qualifiers Primary Impression: Occluded PICC line Encounter type: initial encounter Qualified Codes: T82.898A - Other specified complication of vascular prosthetic devices, implants and grafts, initial encounter VIVIAN AGUIAR FIRE POT OPERATOR Mar 15, 2019 17:40
== END 2019-03-15 17:55 | disposition home or self-care (01) ==
LOC: ER 16:20
DX: T82.898A Other specified complication of vascular prosthetic devices, implants and grafts, initial encounter (principal); I13.2 Hypertensive heart and chronic kidney disease with heart failure and with stage 5 chronic kidney disease, or end stage renal disease; E11.22 Type 2 diabetes mellitus with diabetic chronic kidney disease; N18.6 End stage renal disease; I50.9 Heart failure, unspecified; Z99.2 Dependence on renal dialysis; E78.00 Pure hypercholesterolemia, unspecified; Z90.710 Acquired absence of both cervix and uterus; Z88.0 Allergy status to penicillin; Z88.2 Allergy status to sulfonamides; Y82.8 Other medical devices associated with adverse incidents; Y92.89 Other specified places as the place of occurrence of the external cause
CPT/HCPCS: 99285-25

== ENCOUNTER 2019-08-03 13:57 | Inpatient (IN) | payer OTHER ==
[2019-08-03] VITALS (9 sets, daily range): BP systolic 158–232; BP diastolic 65–94
[~2019-08-03] VITALS: Ht 170.2 cm; Wt 115.5 kg
[~2019-08-03 13:57] MED LIST changes: -GLIM4TAB4 PO; +GLIM4TAB8 PO
[2019-08-03 14:37] LABS: BASO % 1 % (0-3); EOS # 0.2 x10^3/uL (0.0-0.7); EOS % 3 % (0-3); LYMPH # 0.9 x10^3/uL (1.0-4.8); LYMPH % 11 % (24-48); MEAN CORPUSCULAR HEMOGLOBIN 29 pg (25-35); MEAN CORPUSCULAR HGB CONC 33 g/dL (31-37); MEAN CORPUSCULAR VOLUME 88 fL (79-100); MONO # 0.4 x10^3/uL (0.0-1.1); MONO % 5 % (0-9); NEUT # 6.7 x10^3/uL (1.8-7.7); NEUT % 81 % (31-73); PLATELET COUNT 215 x10^3/uL (140-400); RED BLOOD COUNT 2.34 x10^6/uL (3.50-5.40); RED CELL DISTRIBUTION WIDTH 16.9 % (11.5-14.5); WHITE BLOOD COUNT 8.2 x10^3/uL (4.0-11.0)
[2019-08-03 14:43] LABS: HEMATOCRIT 20.6 % (36.0-47.0); HEMOGLOBIN 6.7 g/dL (12.0-15.5)
[2019-08-03 14:45] LABS: CALCIUM 9.1 mg/dL (8.5-10.1); CREATININE 4.6 mg/dL (0.6-1.0); GFR 9.9; POTASSIUM 4.4 mmol/L (3.5-5.1)
[2019-08-03 14:49] LABS: PROTHROMBIN TIME PATIENT 12.8 SEC (11.7-14.0)
[2019-08-03 14:57] LABS: ALBUMIN 3.3 g/dL (3.4-5.0); ALBUMIN/GLOBULIN RATIO 0.9 (1.0-1.7); TOTAL BILIRUBIN 0.6 mg/dL (0.2-1.0)
--- NOTE | 2019-08-03 14:59 | PHYS DOC ---
Past Medical History Past Medical History: Anemia, CHF, Diabetes-Type II, High Cholesterol, Hypertension, Renal Disease, Renal Failure Past Surgical History: Hysterectomy, Other Additional Past Surgical Histo: Dilation and Curettage, dialysis access to R chest Smoking Status: Never Smoker Alcohol Use: Rarely Drug Use: None General Adult EDM: Chief Complaint: ABNORMAL LABS HPI: HPI: Patient is a 54 year old female who presents to the emergency department after being advised of abnormal labs that were drawn yesterday. Patient states that Dr. 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 She denies any abdominal pain, rectal bleeding, or blood in her urine. Patient states that both of her lower extremities have been extremely swollen for the last 4 days. She attributed this to the recent increase in her Metoprolol. She saw her PCP, Dr. Fontenot yesterday who stopped her metoprolol and put her on Bumex. She denies any chest pain, palpitations, numbness, tingling, weakness, diarrhea, body aches, fever, vomiting, or diarrhea. Patient states she has noticed some nausea, and reports that she has been short of breath for the last 2 months. She denies any decreased urine output or dysuria, She denies any pain at this time. Review of Systems: Review of Systems: Constitutional: Denies fever or chills. [] Eyes: Denies change in visual acuity. [] HENT: Denies nasal congestion or sore throat. [] Respiratory: Denies cough or shortness of breath. [] Cardiovascular: Denies chest pain or edema. [] GI: Denies abdominal pain, nausea, vomiting, bloody stools or diarrhea. [] : Denies dysuria. [] Musculoskeletal: Denies back pain or joint pain. [] Integument: Denies rash. [] Neurologic: Denies headache, focal weakness or sensory changes. [] Endocrine: Denies polyuria or polydipsia. [] Lymphatic: Denies swollen glands. [] Psychiatric: Denies depression or anxiety. [] Heart Score: Risk Factors: Risk Factors: DM, Current or recent (<one month) smoker, HTN, HLP, family history of CAD, obesity. Risk Scores: Score 0 - 3: 2.5% MACE over next 6 weeks - Discharge Home Score 4 - 6: 20.3% MACE over next 6 weeks - Admit for Clinical Observation Score 7 - 10: 72.7% MACE over next 6 weeks - Early Invasive Strategies Allergies: Allergies: Allergies Coded Allergies Type Severity Reaction Last Updated Verified Penicillins Allergy Intermediate RED RASH (NOT HIVES) 06/20/19 Yes Sulfa (Sulfonamide Antibiotics) Allergy Intermediate 06/20/19 Yes Physical Exam: PE: Constitutional: Well developed, well nourished, no acute distress, non-toxic appearance, obese. [] HENT: Normocephalic, atraumatic, bilateral external ears normal, nose normal. [] Eyes: PERRLA, EOMI, conjunctiva normal, no discharge. [] Neck: Normal range of motion, no stridor. [] Cardiovascular:Heart rate regular rhythm Lungs & Thorax: Bilateral breath sounds clear to auscultation, Respirations even and unlabored, no retractions, no respiratory distress [] Abdomen: Bowel sounds normal, soft Skin: Warm, dry, no erythema, no rash. [] Extremities: No cyanosis, no clubbing, ROM intact, 2+ edema BLE Neurologic: Alert and oriented X 3, no focal deficits noted. [] Psychologic: Affect normal, judgement normal, mood normal. [] Current Patient Data: Labs: Laboratory Tests Test 08/03/19 14:27 White Blood Count 8.2 x10^3/uL (4.0-11.0) Red Blood Count 2.34 x10^6/uL (3.50-5.40) L Hemoglobin 6.7 g/dL (12.0-15.5) *L Hematocrit 20.6 % (36.0-47.0) *L Mean Corpuscular Volume 88 fL (79-100) Mean Corpuscular Hemoglobin 29 pg (25-35) Mean Corpuscular Hemoglobin Concent 33 g/dL (31-37) Red Cell Distribution Width 16.9 % (11.5-14.5) H Platelet Count 215 x10^3/uL (140-400) Neutrophils (%) (Auto) 81 % (31-73) H Lymphocytes (%) (Auto) 11 % (24-48) L Monocytes (%) (Auto) 5 % (0-9) Eosinophils (%) (Auto) 3 % (0-3) Basophils (%) (Auto) 1 % (0-3) Neutrophils # (Auto) 6.7 x10^3/uL (1.8-7.7) Lymphocytes # (Auto) 0.9 x10^3/uL (1.0-4.8) L Monocytes # (Auto) 0.4 x10^3/uL (0.0-1.1) Eosinophils # (Auto) 0.2 x10^3/uL (0.0-0.7) Basophils # (Auto) 0.0 x10^3/uL (0.0-0.2) Sodium Level 139 mmol/L (136-145) Potassium Level 4.4 mmol/L (3.5-5.1) Chloride Level 106 mmol/L (98-107) Carbon Dioxide Level 18 mmol/L (21-32) L Anion Gap 15 (6-14) H Blood Urea Nitrogen 78 mg/dL (7-20) H Creatinine 4.6 mg/dL (0.6-1.0) H Estimated GFR (Cockcroft-Gault) 9.9 BUN/Creatinine Ratio 17 (6-20) Glucose Level 183 mg/dL (70-99) H Calcium Level 9.1 mg/dL (8.5-10.1) Total Bilirubin Pending Aspartate Amino Transferase (AST) Pending Alanine Aminotransferase (ALT) Pending Alkaline Phosphatase Pending Total Protein Pending Albumin Pending Albumin/Globulin Ratio Pending Laboratory Tests 08/03/19 14:27 Laboratory Tests 08/03/19 14:27 Vital Signs: Vital Signs Date Time Temp Pulse Resp B/P (MAP) Pulse Ox O2 Delivery O2 Flow Rate FiO2 08/03/19 14:15 98.0 68 16 215/101 (139) 98 Room Air 98.0 EKG: EK- SR rate 67 no STEMI read by Dr. Ward[] Radiology/Procedures: Radiology/Procedures: PROCEDURE: CHEST AP ONLY AP chest. HISTORY: Short of breath, abnormal labs AP view was taken of the chest. Heart is mildly enlarged. There is elevation of the right diaphragm which is chronic. There is an interstitial prominence from vascular congestion or interstitial infiltrates or interstitial pneumonia. The apparent lung disease could be related to a poor inspiration. IMPRESSION: 1. Mild cardiac enlargement. 2. Mild interstitial infiltrates or edema versus poor inspiration, PA and lateral views could be of benefit. [] Course & Med Decision Making: Course & Med Decision Making Pertinent Labs and Imaging studies reviewed. (See chart for details) [id number] FONTENOT who is the admitting physician, and care was assumed following discussion of patient. Will admit patient to telemetry for high blood pressure, anemia, CHF exacerbation. Will consult nephrology as well as cardiology and order to transfuse 1 unit of packed red blood cells at this time. Dr. Fontenot advised the patient was given 40 mg of Lasix in the emergency department for elevated BNP. Patient's vital signs stable. Patient remains afebrile, appears nontoxic, respirations even and unlabored. Patient will be admitted to the tele floor. Patient's case and plan of care also discussed with Dr.Kousha Ewing Disclaimer: Kaylin Disclaimer: This electronic medical record was generated, in whole or in part, using a voice recognition dictation system. Departure Departure Impression: Primary Impression: HTN (hypertension) Qualified Codes: I10 - Essential (primary) hypertension Additional Impressions: Acute exacerbation of CHF (congestive heart failure) Qualified Codes: I50.9 - Heart failure, unspecified Anemia Qualified Codes: D64.9 - Anemia, unspecified Acute on chronic renal failure Qualified Codes: N17.9 - Acute kidney failure, unspecified; N18.9 - Chronic kidney disease, unspecified Disposition: ADMITTED INPATIENT Admitting Physician: Yarelis Fontenot Condition: STABLE Referrals: YARELIS FONTENOT MD (PCP) PHYLLIS PAIGE APRN Aug 03, 2019 14:59
--- NOTE | 2019-08-03 15:16 | RAD ---
AP chest. HISTORY: Short of breath, abnormal labs AP view was taken of the chest. Heart is mildly enlarged. There is elevation of the right diaphragm which is chronic. There is an interstitial prominence from vascular congestion or interstitial infiltrates or interstitial pneumonia. The apparent lung disease could be related to a poor inspiration. IMPRESSION: 1. Mild cardiac enlargement. 2. Mild interstitial infiltrates or edema versus poor inspiration, PA and lateral views could be of benefit. Electronically signed by: Juan Ohara MD (08/03/2019 3:13 PM) [id number]
[2019-08-03] MEDS ORDERED: FUROSEMIDE 20 MG/2 ML VIAL. IVP ONE (15:45)
[2019-08-03] MEDS ORDERED: FUROSEMIDE 40 MG/4 ML VIAL. IVP ONE (16:00)
[2019-08-03 16:12] LABS: BILIRUBIN,URINE NEGATIVE (NEG); CLARITY,URINE CLEAR; NITRITE,URINE NEGATIVE (NEG); PROTEIN,URINE 100 mg/dL (NEG-TRACE); UROBILINOGEN,URINE 0.2 mg/dL (0.2 mg/dL)
[2019-08-03 16:15] LABS: COLOR,URINE STRAW
[2019-08-03 16:20] LABS: BACTERIA,URINE MODERATE /HPF (0-FEW); RBC,URINE OCC /HPF (0-2); SQUAMOUS EPITHELIAL CELL,UR MANY /LPF
--- NOTE | 2019-08-03 16:33 | EKG ---
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
[2019-08-03] MEDS ORDERED: hydrALAZINE 20 MG/ML VIAL. IVP ONE (17:30)
[2019-08-03] MEDS ORDERED: BUME1TAB3 PO (20:54)
[2019-08-03] MEDS ORDERED: METO2.5T PO (20:54)
[2019-08-03] MEDS ORDERED: DEXTROSE 50% 25 GM / 50ML DISP.SYRIN. IV PRN (21:15)
[2019-08-03] MEDS: ATORVASTATIN CALCIUM 40 MG TABLET. PO SCH (21:43)
[2019-08-03] MEDS: hydrALAZINE 20 MG/ML VIAL. IVP PRN (21:46)
[2019-08-03] MEDS: INSULIN LISPRO 300 UNITS/3 ML VIAL. SQ SCH (22:00)
[2019-08-03] MEDS: BUMETANIDE 1 MG/4 ML VIAL. IV SCH (22:47)
[2019-08-03] MEDS ORDERED: HYDROcodone/APAP 5/325MG 1 TAB TABLET PO PRN (23:30)
[2019-08-03] MEDS ORDERED: ZOLPIDEM 5 MG TABLET. PO PRN (23:30)
[2019-08-04] VITALS (14 sets, daily range): BP systolic 159–214; BP diastolic 65–99
[2019-08-04 05:05] LABS: BASO % 0 % (0-3); EOS # 0.2 x10^3/uL (0.0-0.7); EOS % 3 % (0-3); HEMATOCRIT 21.1 % (36.0-47.0); LYMPH # 1.1 x10^3/uL (1.0-4.8); LYMPH % 12 % (24-48); MEAN CORPUSCULAR HEMOGLOBIN 29 pg (25-35); MEAN CORPUSCULAR HGB CONC 33 g/dL (31-37); MEAN CORPUSCULAR VOLUME 87 fL (79-100); MONO # 0.5 x10^3/uL (0.0-1.1); MONO % 6 % (0-9); NEUT # 6.9 x10^3/uL (1.8-7.7); NEUT % 79 % (31-73); PLATELET COUNT 195 x10^3/uL (140-400); RED BLOOD COUNT 2.42 x10^6/uL (3.50-5.40); RED CELL DISTRIBUTION WIDTH 17.2 % (11.5-14.5); WHITE BLOOD COUNT 8.8 x10^3/uL (4.0-11.0)
[2019-08-04 05:20] LABS: CALCIUM 8.7 mg/dL (8.5-10.1); CREATININE 4.5 mg/dL (0.6-1.0); GFR 10.1; POTASSIUM 4.4 mmol/L (3.5-5.1)
[2019-08-04] MEDS: INSULIN LISPRO 300 UNITS/3 ML VIAL. SQ SCH ×3 (08:00→17:00)
[2019-08-04] MEDS: metOLazone 2.5 MG TABLET PO SCH ×2 (08:14→17:58)
[2019-08-04] MEDS: BUMETANIDE 1 MG/4 ML VIAL. IV SCH ×2 (08:14→15:32)
[2019-08-04] MEDS: ISOSORBIDE MONONITRATE ER 30 MG TAB.ER.24H PO SCH (08:14)
[2019-08-04] MEDS ORDERED: LABETALOL 20 MG/4 ML DISP.SYRIN. IVP ONE (09:15)
--- NOTE | 2019-08-04 09:27 | PDOC2 ---
JOVANY ALEXIS SOFTWARE DESIGN ANALYST 08/04/19 0927: CARDIAC CONSULT DATE OF CONSULT Date of Consult DATE: 08/04/19 TIME: 09:17 REASON FOR CONSULT Reason for Consult: HTN, CHF exacerbation REFERRING PHYSICIAN Referring Physician: Isaiah SOURCE Source: Chart review, Patient HISTORY OF PRESENT ILLNESS HISTORY OF PRESENT ILLNESS This is a pleasant 54 yo female admitted for complains of SOA and leg edema. Reports no chest pain or palpitations. No falls but has had dizzy spells. As an outpt she has been noted with significant anemia and also worsening renal function. Reports that her BP has been elevated in the 170s-200s SBP and her metoprolol has been increased but decided to not take the increased dose since she started having more swollen to her legs and nasal congestion since the start of metoprolol. She has gained about 15 pounds in the last week and has been having NUÑEZ. She had temporary dialysis before. She failed to follow up in our office due to financial constraints a yr ago. No fever, chills, diarrhea, n/v. Denies any blood in stool or any signs of bleeding. PAST MEDICAL HISTORY Cardiovascular: AFIB (paroxysmal), CHF, HTN, Hyperlipidemia, Other (LE PAD) Pulmonary: No pertinent hx CENTRAL NERVOUS SYSTEM: Other (No pertinent history) GI: No pertinent hx Heme/Onc: Anemia NOS Hepatobiliary: No pertinent hx Psych: No pertinent hx Musculoskeletal: Osteoarthritis Rheumatologic: No pertinent hx Infectious disease: No pertinent hx Renal/: Chronic renal insuff (CKD5, prior dialysis) Endocrine: Diabetes (2) Dermatology: No pertinent hx PAST SURGICAL HISTORY Past Surgical History: Cataract Removal, Hysterectomy SOCIAL HISTORY Smoke: No ALCOHOL: none Drugs: None CURRENT MEDICATIONS CURRENT MEDICATIONS Current Medications Medications (Trade) Dose Ordered Sig/Joshua Route PRN Reason Start Time Stop Time Status Last Admin Dose Admin Furosemide (Lasix) 40 mg 1X ONCE IVP 08/03/19 16:00 08/03/19 16:01 DC 08/03/19 16:02 Hydralazine HCl (Apresoline Inj) 10 mg 1X ONCE IVP 08/03/19 17:30 08/03/19 17:31 DC 08/03/19 17:31 Atorvastatin Calcium (Lipitor) 40 mg QHS PO 08/03/19 22:00 08/03/19 21:43 Metolazone (Zaroxolyn) 2.5 mg BID94 PO 08/04/19 09:00 08/04/19 08:14 Isosorbide Mononitrate (Imdur) 60 mg DAILY PO 08/04/19 09:00 08/04/19 08:14 Hydralazine HCl (Apresoline Inj) 10 mg PRN Q4HRS PRN IVP ELEVATED BP, SEE COMMENTS 08/03/19 21:15 08/03/19 21:46 Bumetanide (Bumex) 1 mg BID92 IV 08/03/19 22:00 08/04/19 08:14 Hydralazine HCl (Apresoline) 50 mg TID PO 08/04/19 09:00 08/04/19 08:13 Acetaminophen/ Hydrocodone Bitart (Lortab 5/325) 1 tab PRN Q6HRS PRN PO MODERATE PAIN 4-6 08/03/19 23:30 08/03/19 23:42 ALLERGIES ALLERGIES: Coded Allergies: Penicillins (Verified Allergy, Intermediate, RED RASH (NOT HIVES), 06/20/19) TOLERATING ZOSYN Sulfa (Sulfonamide Antibiotics) (Verified Allergy, Intermediate, 06/20/19) ROS Review of System 14 point ROS evaluated with pertinent positives noted per HPI PHYSICAL EXAM General: Alert, Oriented X3, Cooperative, No acute distress HEENT: Atraumatic, Mucous membr. moist/pink Lungs: Other (diminished bases) Extremities: No cyanosis, Other (2+ bilateral LE pittjing edema) Skin: No breakdown, No significant lesion Neuro: Normal speech, Sensation intact Psych/Mental Status: Mental status NL, Other (anxious worried about her health) MUSCULOSKELETAL: Osteoarthritic changes both hands VITALS/I&O VITALS/I&O: Vital Signs Date Time Temp Pulse Resp B/P (MAP) Pulse Ox O2 Delivery O2 Flow Rate FiO2 08/04/19 08:17 198/92 (127) 08/04/19 08:14 110 08/04/19 07:00 97.8 22 95 Room Air 97.8 08/03/19 19:33 2.0 I & O 08/03/19 08/03/19 08/04/19 15:00 23:00 07:00 Intake Total 350 ml 0 ml Output Total 350 ml Balance 350 ml -350 ml LABS Lab: Laboratory Tests Test 08/03/19 14:27 08/03/19 16:00 08/03/19 21:50 08/04/19 04:07 White Blood Count 8.2 x10^3/uL (4.0-11.0) 8.8 x10^3/uL (4.0-11.0) Red Blood Count 2.34 x10^6/uL (3.50-5.40) L 2.42 x10^6/uL (3.50-5.40) L Hemoglobin 6.7 g/dL (12.0-15.5) *L 7.0 g/dL (12.0-15.5) *L Hematocrit 20.6 % (36.0-47.0) *L 21.1 % (36.0-47.0) L Mean Corpuscular Volume 88 fL (79-100) 87 fL (79-100) Mean Corpuscular Hemoglobin 29 pg (25-35) 29 pg (25-35) Mean Corpuscular Hemoglobin Concent 33 g/dL (31-37) 33 g/dL (31-37) Red Cell Distribution Width 16.9 % (11.5-14.5) H 17.2 % (11.5-14.5) H Platelet Count 215 x10^3/uL (140-400) 195 x10^3/uL (140-400) Neutrophils (%) (Auto) 81 % (31-73) H 79 % (31-73) H Lymphocytes (%) (Auto) 11 % (24-48) L 12 % (24-48) L Monocytes (%) (Auto) 5 % (0-9) 6 % (0-9) Eosinophils (%) (Auto) 3 % (0-3) 3 % (0-3) Basophils (%) (Auto) 1 % (0-3) 0 % (0-3) Neutrophils # (Auto) 6.7 x10^3/uL (1.8-7.7) 6.9 x10^3/uL (1.8-7.7) Lymphocytes # (Auto) 0.9 x10^3/uL (1.0-4.8) L 1.1 x10^3/uL (1.0-4.8) Monocytes # (Auto) 0.4 x10^3/uL (0.0-1.1) 0.5 x10^3/uL (0.0-1.1) Eosinophils # (Auto) 0.2 x10^3/uL (0.0-0.7) 0.2 x10^3/uL (0.0-0.7) Basophils # (Auto) 0.0 x10^3/uL (0.0-0.2) 0.0 x10^3/uL (0.0-0.2) Prothrombin Time 12.8 SEC (11.7-14.0) Prothrombin Time INR 1.0 (0.8-1.1) Activated Partial Thromboplast Time 27 SEC (24-38) Sodium Level 139 mmol/L (136-145) 141 mmol/L (136-145) Potassium Level 4.4 mmol/L (3.5-5.1) 4.4 mmol/L (3.5-5.1) Chloride Level 106 mmol/L (98-107) 108 mmol/L (98-107) H Carbon Dioxide Level 18 mmol/L (21-32) L 19 mmol/L (21-32) L Anion Gap 15 (6-14) H 14 (6-14) Blood Urea Nitrogen 78 mg/dL (7-20) H 79 mg/dL (7-20) H Creatinine 4.6 mg/dL (0.6-1.0) H 4.5 mg/dL (0.6-1.0) H Estimated GFR (Cockcroft-Gault) 9.9 10.1 BUN/Creatinine Ratio 17 (6-20) Glucose Level 183 mg/dL (70-99) H 98 mg/dL (70-99) Calcium Level 9.1 mg/dL (8.5-10.1) 8.7 mg/dL (8.5-10.1) Total Bilirubin 0.6 mg/dL (0.2-1.0) Aspartate Amino Transferase (AST) 11 U/L (15-37) L Alanine Aminotransferase (ALT) 20 U/L (14-59) Alkaline Phosphatase 130 U/L (46-116) H Troponin I Quantitative < 0.017 ng/mL (0.000-0.055) RA-Fww-S-Type Natriuretic Peptide 80891 pg/mL (0-124) H Total Protein 7.0 g/dL (6.4-8.2) Albumin 3.3 g/dL (3.4-5.0) L Albumin/Globulin Ratio 0.9 (1.0-1.7) L Urine Collection Type Unknown Urine Color Straw Urine Clarity Clear Urine pH 6.0 (<5.0-8.0) Urine Specific [place] 1.010 (1.000-1.030) Urine Protein 100 mg/dL (NEG-TRACE) Urine Glucose (UA) 100 mg/dL (NEG) Urine Ketones (Stick) Negative mg/dL (NEG) Urine Blood Negative (NEG) Urine Nitrite Negative (NEG) Urine Bilirubin Negative (NEG) Urine Urobilinogen Dipstick 0.2 mg/dL (0.2 mg/dL) Urine Leukocyte Esterase Trace (NEG) Urine RBC Occ /HPF (0-2) Urine WBC 5-10 /HPF (0-4) Urine Squamous Epithelial Cells Many /LPF Urine Bacteria Moderate /HPF (0-FEW) Glucose (Fingerstick) 145 mg/dL (70-99) H Test 08/04/19 07:44 Glucose (Fingerstick) 102 mg/dL (70-99) H Laboratory Tests 08/03/19 14:27 08/04/19 04:07 Laboratory Tests 08/03/19 14:27 08/04/19 04:07 ECHOCARDIOGRAM ECHOCARDIOGRAM <Conclusion> The left ventricle is normal size. The left ventricular systolic function is normal and the ejection fraction is within normal range. The Ejection Fraction is 55-60%. There is mild concentric left ventricular hypertrophy. There is no significant aortic valvular stenosis. Doppler and Color Flow revealed no significant aortic regurgitation. Doppler and Color-flow revealed mild mitral regurgitation. Doppler and Color Flow revealed trace tricuspid regurgitation. The PA pressure was estimated at 25 mmHg. DATE: 06/13/18 1540 ASSESSMENT/PLAN ASSESSMENT/PLAN 1. KATJA on CKD4-5: uremic 2. Malignant HTN: uncontrolled so far at home. labile. 3. PAFIB with RVR: secondary to metabolic issues 4. Acute on chronic diastolic CHF: multifactorial with culprits above. 5. Anemia of chronic disease: initially at 6.7 6. DM2 7. HLP: lipids are on goal 8. Morbid obesity 9. LE PAD: no claudications or wounds. Recommendations 1. Transfusion ongoing. Continue bumex therapy managed by renal.. May need HD, defer to Nephrology 2. Start on metoprolol PO for rate control. Dig IV x1. Blames this for her leg swelling, Discussed this with pt and is complying. Continue imdur and will increase hydralazine. 3. Consider outpt STEPHEN w/u as she has features of this. 4. Start on 81 mg ECASA if low suspicion for any bleed for stroke prevention. Not a candidate currently for anticoagulation due to anemia. 5. Will consider for outpt MPI given her significant risk factors. MCOT and MPI were considered a yr ago but failed to comply. 6. TTE today FATOU LOPEZ MD 08/04/19 1443: CARDIAC CONSULT ASSESSMENT/PLAN ASSESSMENT/PLAN Patient seen and examined Reviewed with our ROCKET ENGINE COMPONENT MECHANIC and agree with his assessment. Acute kidney injury. Renal is evaluating. Patient may require hemodialysis. Hypertension. Mildly improved. Have started on metoprolol and continued Imdur and hydralazine. Atrial fibrillation with rapid ventricular response rate. Beta-annamaria treatment as above. Continuing treatment of patient's KATJA. Not a candidate for anticoagulation at this time. Anemia. Hemoglobin of 6.7. Transfusion as above. Diabetes mellitus. As per the primary service. Thank you for allowing us to participate in the care of your patient. JOVANY ALEXIS SOFTWARE DESIGN ANALYST Aug 04, 2019 09:27 FATOU LOPEZ MD Aug 04, 2019 14:43
[2019-08-04 09:52] LABS: CHOLESTEROL/HDL RATIO 2.6
--- NOTE | 2019-08-04 10:08 | PDOC2 ---
CONSULT Date of Consult Date of Consult DATE: 08/04/19 TIME: 09:55 Reason for Consult Reason for Consult: Renal failure History of Present Illness Reason for Visit: Pt is a 54 yr old CF , under Dr. Soto's care for CKD . She was sent to ER from his office for low Hgb. Her PMHx is signiifcant for DM, HTN, anemia, CHF and CKD stage 5 . She was on HD for KATJA more than a year ago She has would like to do PD . Currently No Uremic symptoms or signs . Renal function has stayed stable Denies any CP, SOB, No N/V/D. Good appetite . Denies any urinary symptoms, good UOP .Would like to hold off on starting HD . Past Medical History Cardiovascular: AFIB (paroxysmal), CHF, HTN, Hyperlipidemia Pulmonary: No pertinent hx GI: No pertinent hx Heme/Onc: Anemia NOS Hepatobiliary: No pertinent hx Psych: No pertinent hx Musculoskeletal: Osteoarthritis Rheumatologic: No pertinent hx Infectious disease: No pertinent hx Renal/: Chronic renal insuff (CKD5, prior dialysis) Endocrine: Diabetes (2) Past Surgical History Past Surgical History: Cataract Removal, Hysterectomy Family History Family History: Coronary Artery Disease, Diabetes, High Cholestrol, Hypertension Social History No ALCOHOL: none Drugs: None Lives: with Family Current Problem List Problem List Problems Medical Problems: (1) Acute exacerbation of CHF (congestive heart failure) Status: Acute (2) Anemia Status: Acute (3) HTN (hypertension) Status: Acute Current Medications Current Medications Current Medications Furosemide (Lasix) 20 mg 1X ONCE IVP ; Start 08/03/19 at 15:45; Stop 08/03/19 at 15:46; Status Cancel Furosemide (Lasix) 40 mg 1X ONCE IVP Last administered on 08/03/19at 16:02; Start 08/03/19 at 16:00; Stop 08/03/19 at 16:01; Status DC Hydralazine HCl (Apresoline Inj) 10 mg 1X ONCE IVP Last administered on 08/03/19at 17:31; Start 08/03/19 at 17:30; Stop 08/03/19 at 17:31; Status DC Atorvastatin Calcium (Lipitor) 40 mg QHS PO Last administered on 08/03/19at 21:43; Start 08/03/19 at 22:00 Metolazone (Zaroxolyn) 2.5 mg BID94 PO Last administered on 08/04/19at 08:14; Start 08/04/19 at 09:00 Isosorbide Mononitrate (Imdur) 60 mg DAILY PO Last administered on 08/04/19at 08:14; Start 08/04/19 at 09:00 Hydralazine HCl (Apresoline Inj) 10 mg PRN Q4HRS PRN IVP ELEVATED BP, SEE COMMENTS Last administered on 08/03/19at 21:46; Start 08/03/19 at 21:15 Bumetanide (Bumex) 1 mg BID92 IV Last administered on 08/04/19at 08:14; Start 08/03/19 at 22:00 Insulin Human Lispro (HumaLOG) 0-5 UNITS TIDWMEALS SQ ; Start 08/03/19 at 22:00 Dextrose (Dextrose 50%-Water Syringe) 12.5 gm PRN Q15MIN PRN IV SEE COMMENTS; Start 08/03/19 at 21:15 Hydralazine HCl (Apresoline) 50 mg TID PO Last administered on 08/04/19at 08:13; Start 08/04/19 at 09:00 Acetaminophen/ Hydrocodone Bitart (Lortab 5/325) 1 tab PRN Q6HRS PRN PO MODERATE PAIN 4-6 Last administered on 08/03/19at 23:42; Start 08/03/19 at 23:30 Zolpidem Tartrate (Ambien) 5 mg PRN QHS PRN PO INSOMNIA, MAY REPEAT X1; Start 08/03/19 at 23:30 Insulin Glargine (Lantus Syringe) 20 unit QHS SQ ; Start 08/04/19 at 21:00 Labetalol HCl (Normodyne Iv Push) 20 mg 1X ONCE IVP Last administered on 08/04/19at 09:17; Start 08/04/19 at 09:15; Stop 08/04/19 at 09:16; Status DC Active Scripts Active Reported Metolazone 2.5 Mg Tablet 2.5 Mg PO BID Bumetanide 1 Mg Tablet 1 Tab PO BID Xultophy 100 Unit-3.6 mg/ml (Insulin Degludec/Liraglutide) 3 Ml Insuln.pen 20 Units SQ Atorvastatin Calcium 40 Mg Tablet 1 Tab PO QHS Isosorbide Mononitrate Er (Isosorbide Mononitrate) 60 Mg Tab.er.24h 1 Tab PO DAILY Hydralazine Hcl 50 Mg Tablet 1 Tab PO TID Novolog Flexpen (Insulin Aspart) 100 Unit/1 Ml Insuln.pen 10 Unit SQ TIDAC Allergies Allergies: Coded Allergies: Penicillins (Verified Allergy, Intermediate, RED RASH (NOT HIVES), 06/20/19) TOLERATING ZOSYN Sulfa (Sulfonamide Antibiotics) (Verified Allergy, Intermediate, 06/20/19) ROS Review of System Per HPI Physical Exam Physical Exam Per HPI Vital Signs Vital Signs Date Time Temp Pulse Resp B/P (MAP) Pulse Ox O2 Delivery O2 Flow Rate FiO2 08/04/19 09:24 120 198/92 (127) 08/04/19 07:00 97.8 22 95 Room Air 97.8 08/03/19 19:33 2.0 Assessment & Plan CKD stage 5- Under Dr. Soto's care Currently stable renal function, No Uremic symptoms or signs E-Lytes, acid base and Vol status stable, no emergent indication for ADJUNCT INSTRUCTOR Anemia- Drop in Hgb was sent to ER from Dr. Soto's office Baseline 8's , Receiving PRBC , JACOBSEN per primary Hx of KATJA- was on HD early 2018 Off HD, renal function stable HTN- cardiology managing Labile at home DM- per Primary CHF- Compensated PAFIB with RVR- Renal function stable for a year Acute on chronic diastolic CHF: CxR No congestion, Clinically stable on RA Labs Labs Laboratory Tests Test 08/03/19 14:27 08/03/19 16:00 08/03/19 21:50 08/04/19 04:07 White Blood Count 8.2 x10^3/uL (4.0-11.0) 8.8 x10^3/uL (4.0-11.0) Red Blood Count 2.34 x10^6/uL (3.50-5.40) 2.42 x10^6/uL (3.50-5.40) Hemoglobin 6.7 g/dL (12.0-15.5) 7.0 g/dL (12.0-15.5) Hematocrit 20.6 % (36.0-47.0) 21.1 % (36.0-47.0) Mean Corpuscular Volume 88 fL (79-100) 87 fL (79-100) Mean Corpuscular Hemoglobin 29 pg (25-35) 29 pg (25-35) Mean Corpuscular Hemoglobin Concent 33 g/dL (31-37) 33 g/dL (31-37) Red Cell Distribution Width 16.9 % (11.5-14.5) 17.2 % (11.5-14.5) Platelet Count 215 x10^3/uL (140-400) 195 x10^3/uL (140-400) Neutrophils (%) (Auto) 81 % (31-73) 79 % (31-73) Lymphocytes (%) (Auto) 11 % (24-48) 12 % (24-48) Monocytes (%) (Auto) 5 % (0-9) 6 % (0-9) Eosinophils (%) (Auto) 3 % (0-3) 3 % (0-3) Basophils (%) (Auto) 1 % (0-3) 0 % (0-3) Neutrophils # (Auto) 6.7 x10^3/uL (1.8-7.7) 6.9 x10^3/uL (1.8-7.7) Lymphocytes # (Auto) 0.9 x10^3/uL (1.0-4.8) 1.1 x10^3/uL (1.0-4.8) Monocytes # (Auto) 0.4 x10^3/uL (0.0-1.1) 0.5 x10^3/uL (0.0-1.1) Eosinophils # (Auto) 0.2 x10^3/uL (0.0-0.7) 0.2 x10^3/uL (0.0-0.7) Basophils # (Auto) 0.0 x10^3/uL (0.0-0.2) 0.0 x10^3/uL (0.0-0.2) Prothrombin Time 12.8 SEC (11.7-14.0) Prothromb Time International Ratio 1.0 (0.8-1.1) Activated Partial Thromboplast Time 27 SEC (24-38) Sodium Level 139 mmol/L (136-145) 141 mmol/L (136-145) Potassium Level 4.4 mmol/L (3.5-5.1) 4.4 mmol/L (3.5-5.1) Chloride Level 106 mmol/L (98-107) 108 mmol/L (98-107) Carbon Dioxide Level 18 mmol/L (21-32) 19 mmol/L (21-32) Anion Gap 15 (6-14) 14 (6-14) Blood Urea Nitrogen 78 mg/dL (7-20) 79 mg/dL (7-20) Creatinine 4.6 mg/dL (0.6-1.0) 4.5 mg/dL (0.6-1.0) Estimated GFR (Cockcroft-Gault) 9.9 10.1 BUN/Creatinine Ratio 17 (6-20) Glucose Level 183 mg/dL (70-99) 98 mg/dL (70-99) Calcium Level 9.1 mg/dL (8.5-10.1) 8.7 mg/dL (8.5-10.1) Total Bilirubin 0.6 mg/dL (0.2-1.0) Aspartate Amino Transf (AST/SGOT) 11 U/L (15-37) Alanine Aminotransferase (ALT/SGPT) 20 U/L (14-59) Alkaline Phosphatase 130 U/L (46-116) Troponin I Quantitative < 0.017 ng/mL (0.000-0.055) AG-Nue-G-Type Natriuretic Peptide 78393 pg/mL (0-124) Total Protein 7.0 g/dL (6.4-8.2) Albumin 3.3 g/dL (3.4-5.0) Albumin/Globulin Ratio 0.9 (1.0-1.7) Urine Collection Type Unknown Urine Color Straw Urine Clarity Clear Urine pH 6.0 (<5.0-8.0) Urine Specific [place] 1.010 (1.000-1.030) Urine Protein 100 mg/dL (NEG-TRACE) Urine Glucose (UA) 100 mg/dL (NEG) Urine Ketones (Stick) Negative mg/dL (NEG) Urine Blood Negative (NEG) Urine Nitrite Negative (NEG) Urine Bilirubin Negative (NEG) Urine Urobilinogen Dipstick 0.2 mg/dL (0.2 mg/dL) Urine Leukocyte Esterase Trace (NEG) Urine RBC Occ /HPF (0-2) Urine WBC 5-10 /HPF (0-4) Urine Squamous Epithelial Cells Many /LPF Urine Bacteria Moderate /HPF (0-FEW) Glucose (Fingerstick) 145 mg/dL (70-99) Triglycerides Level 72 mg/dL (0-150) Cholesterol Level 96 mg/dL (0-200) LDL Cholesterol, Calculated 45 mg/dL (0-100) VLDL Cholesterol, Calculated 14 mg/dL (0-40) Non-HDL Cholesterol Calculated 59 mg/dL (0-129) HDL Cholesterol 37 mg/dL (40-60) Cholesterol/HDL Ratio 2.6 Test 08/04/19 07:44 Glucose (Fingerstick) 102 mg/dL (70-99) Laboratory Tests Test 08/03/19 14:27 08/03/19 16:00 08/03/19 21:50 08/04/19 04:07 White Blood Count 8.2 x10^3/uL (4.0-11.0) 8.8 x10^3/uL (4.0-11.0) Red Blood Count 2.34 x10^6/uL (3.50-5.40) 2.42 x10^6/uL (3.50-5.40) Hemoglobin 6.7 g/dL (12.0-15.5) 7.0 g/dL (12.0-15.5) Hematocrit 20.6 % (36.0-47.0) 21.1 % (36.0-47.0) Mean Corpuscular Volume 88 fL (79-100) 87 fL (79-100) Mean Corpuscular Hemoglobin 29 pg (25-35) 29 pg (25-35) Mean Corpuscular Hemoglobin Concent 33 g/dL (31-37) 33 g/dL (31-37) Red Cell Distribution Width 16.9 % (11.5-14.5) 17.2 % (11.5-14.5) Platelet Count 215 x10^3/uL (140-400) 195 x10^3/uL (140-400) Neutrophils (%) (Auto) 81 % (31-73) 79 % (31-73) Lymphocytes (%) (Auto) 11 % (24-48) 12 % (24-48) Monocytes (%) (Auto) 5 % (0-9) 6 % (0-9) Eosinophils (%) (Auto) 3 % (0-3) 3 % (0-3) Basophils (%) (Auto) 1 % (0-3) 0 % (0-3) Neutrophils # (Auto) 6.7 x10^3/uL (1.8-7.7) 6.9 x10^3/uL (1.8-7.7) Lymphocytes # (Auto) 0.9 x10^3/uL (1.0-4.8) 1.1 x10^3/uL (1.0-4.8) Monocytes # (Auto) 0.4 x10^3/uL (0.0-1.1) 0.5 x10^3/uL (0.0-1.1) Eosinophils # (Auto) 0.2 x10^3/uL (0.0-0.7) 0.2 x10^3/uL (0.0-0.7) Basophils # (Auto) 0.0 x10^3/uL (0.0-0.2) 0.0 x10^3/uL (0.0-0.2) Prothrombin Time 12.8 SEC (11.7-14.0) Prothromb Time International Ratio 1.0 (0.8-1.1) Activated Partial Thromboplast Time 27 SEC (24-38) Sodium Level 139 mmol/L (136-145) 141 mmol/L (136-145) Potassium Level 4.4 mmol/L (3.5-5.1) 4.4 mmol/L (3.5-5.1) Chloride Level 106 mmol/L (98-107) 108 mmol/L (98-107) Carbon Dioxide Level 18 mmol/L (21-32) 19 mmol/L (21-32) Anion Gap 15 (6-14) 14 (6-14) Blood Urea Nitrogen 78 mg/dL (7-20) 79 mg/dL (7-20) Creatinine 4.6 mg/dL (0.6-1.0) 4.5 mg/dL (0.6-1.0) Estimated GFR (Cockcroft-Gault) 9.9 10.1 BUN/Creatinine Ratio 17 (6-20) Glucose Level 183 mg/dL (70-99) 98 mg/dL (70-99) Calcium Level 9.1 mg/dL (8.5-10.1) 8.7 mg/dL (8.5-10.1) Total Bilirubin 0.6 mg/dL (0.2-1.0) Aspartate Amino Transf (AST/SGOT) 11 U/L (15-37) Alanine Aminotransferase (ALT/SGPT) 20 U/L (14-59) Alkaline Phosphatase 130 U/L (46-116) Troponin I Quantitative < 0.017 ng/mL (0.000-0.055) TL-Drc-K-Type Natriuretic Peptide 90166 pg/mL (0-124) Total Protein 7.0 g/dL (6.4-8.2) Albumin 3.3 g/dL (3.4-5.0) Albumin/Globulin Ratio 0.9 (1.0-1.7) Urine Collection Type Unknown Urine Color Straw Urine Clarity Clear Urine pH 6.0 (<5.0-8.0) Urine Specific [place] 1.010 (1.000-1.030) Urine Protein 100 mg/dL (NEG-TRACE) Urine Glucose (UA) 100 mg/dL (NEG) Urine Ketones (Stick) Negative mg/dL (NEG) Urine Blood Negative (NEG) Urine Nitrite Negative (NEG) Urine Bilirubin Negative (NEG) Urine Urobilinogen Dipstick 0.2 mg/dL (0.2 mg/dL) Urine Leukocyte Esterase Trace (NEG) Urine RBC Occ /HPF (0-2) Urine WBC 5-10 /HPF (0-4) Urine Squamous Epithelial Cells Many /LPF Urine Bacteria Moderate /HPF (0-FEW) Glucose (Fingerstick) 145 mg/dL (70-99) Triglycerides Level 72 mg/dL (0-150) Cholesterol Level 96 mg/dL (0-200) LDL Cholesterol, Calculated 45 mg/dL (0-100) VLDL Cholesterol, Calculated 14 mg/dL (0-40) Non-HDL Cholesterol Calculated 59 mg/dL (0-129) HDL Cholesterol 37 mg/dL (40-60) Cholesterol/HDL Ratio 2.6 Test 08/04/19 07:44 Glucose (Fingerstick) 102 mg/dL (70-99) Review All relevant outside records, renal labs, imaging studies, telemetry/EKG's were reviewed. Images Images .CXR-- Mild cardiac enlargement. 2. Mild interstitial infiltrates or edema versus poor inspiration, PA and lateral views could be of benefit. HIMANSHU MCGOVERN MD Aug 04, 2019 10:08
[2019-08-04] MEDS ORDERED: METOPROLOL TART IMMED RELEASE 25 MG TABLET. PO ONE (10:45)
--- NOTE | 2019-08-04 10:46 | PDOC ---
Provider Note Provider Note Pt seen.H&P dictated.#[id number]. YARELIS FONTENOT MD Aug 04, 2019 10:46
[2019-08-04] MEDS: METOPROLOL TART IMMED RELEASE 25 MG TABLET. PO SCH ×3 (12:00→23:20)
[2019-08-04] MEDS ORDERED: DIGOXIN IV 500 MCG/2 ML AMPUL. IV ONE (12:00)
--- NOTE | 2019-08-04 12:39 | NUR ---
SS following up with discharge planning. SS reviewed pt chart and discussed with pt RN. Pt is from with spouse and is currently on room air. ECHO ordered. SS will continue to follow for discharge planning.
--- NOTE | 2019-08-04 14:48 | HP ---
ADMIT DATE: 08/03/2019 MEDICAL HISTORY AND PHYSICAL LOCATION: 248. REASON FOR ADMISSION TO THE HOSPITAL: 1. Severe anemia. 2. Anasarca. 3. Diastolic heart failure. 4. Chronic kidney disease, stage 5. HISTORY OF PRESENT ILLNESS: The patient is a 54-year-old female. She has history of diabetes, hypertension, nephrotic syndrome, chronic kidney disease. She was on dialysis for a short period 1 year ago. She was off dialysis since then. She has creatinine running between 5 and 6. She gained 15 pounds. She developed shortness of breath with exertion, tired and her routine labs shows hemoglobin low at 6.7. The patient was admitted to the hospital for further workup and treatment. PAST MEDICAL HISTORY: Diabetes, hypertension, nephrotic syndrome, chronic kidney disease, anemia, proximal AFib. PAST SURGICAL HISTORY: Hysterectomy, cataract surgery, had EGD and colonoscopy within last 2 years. Negative for bleeding. SOCIAL HISTORY: Denies smoking, alcohol or drug abuse. ALLERGIES: PENICILLIN AND SULFA. MEDICATIONS AT HOME: She is on Lasix, atorvastatin 40 mg daily, Zaroxolyn 2.5 twice a day, Imdur 60 mg daily, Bumex 1 mg twice a day, hydralazine 50 mg 4 times daily, Lortab for pain. FAMILY HISTORY: Positive for diabetes, heart disease in her father. REVIEW OF SYMPTOMS: Complains of gained 15 pounds, short of breath, swelling lower extremities, fatigue and tired. PHYSICAL EXAMINATION: VITAL SIGNS: At the time of admission shows a temperature 98, pulse 68, respirations 16, blood pressure 215/101, 98 on room air. HEENT: Head is atraumatic. Pupils equal. Oral cavity: No congestion. NECK: Supple. Thyroid not enlarged. JVD not elevated. CHEST: Symmetrical. CARDIOVASCULAR: S1, S2, tachycardic. LUNGS: Crackles at one-third bases. ABDOMEN: Soft, bowel sounds present, no mass palpable. EXTERNAL GENITALIA: No Martinez. RECTAL: Deferred. EXTREMITIES: 3+ edema all the way up to the thighs, pitting edema. NEUROLOGIC: Cranial nerves intact. Power 5/5 in all extremities. LABORATORY DATA: Shows a white count 8, hemoglobin 6.7, platelets 215. INR 1.0. Electrolytes show sodium 141, potassium 4.4, chloride 108, bicarbonate 19, BUN 79, creatinine 4.5. TSH 1.7. Cholesterol 96, LDL 45, HDL 37. Urine shows negative for leukocytes, 5-10 wbc's. Chest x-ray shows mild cardiac enlargement, CHF. EKG, sinus tachycardia, no ischemic changes. FINAL IMPRESSION: 1. Severe anemia secondary to chronic kidney disease. 2. Chronic kidney disease, stage 5. Creatinine around 5. 3. Acute on chronic Diastolic heart failure, 50-60% ejection fraction. 4. Nephrotic syndrome. 5. Insulin-dependent diabetes. 6. Hypertension, accelerated/malignant. 7. Hyperlipidemia. PLAN: At this time, was admitted to the hospital, IV Bumex. Continue Zaroxolyn p.o. Nephrology is consulted. Monitor electrolytes and magnesium. Cardiology is consulted. Echocardiogram for left ventricular function and I am not sure the patient may require dialysis in the future to control fluid. Blood sugars remains stable. YARELIS FONTENOT MD DR: DAGOBERTO/jamel JOB#: [id number] / [id number] [place]
[2019-08-04] MEDS: ASPIRIN ENTERIC COATED 81 MG TABLET.DR. PO SCH (15:32)
--- NOTE | 2019-08-04 16:18 | CARD ---
MR#: [id number] Date of Study: 08/04/2019 Ordering Physician: JOVANY ALEXIS, Referring Physician: JOVANY ALEXIS, Tech: Hilary Zarate APPROVED REPORT EXAM: Two-dimensional and M-mode echocardiogram with Doppler and color Doppler. Other Information Quality : FairHR: 107bpm INDICATION Arrhythmia Atrial Fibrillation Congestive Heart Failure RISK FACTORS Hypertension Hyperlipidemia Diabetes 2D DIMENSIONS RVDd3.2 (2.9-3.5cm)Left Atrium(2D)4.0 (1.6-4.0cm) IVSd1.2 (0.7-1.1cm)Aortic Root(2D)2.9 (2.0-3.7cm) LVDd5.3 (3.9-5.9cm)LVOT Diameter2.0 (1.8-2.4cm) PWd1.3 (0.7-1.1cm)LVDs3.5 (2.5-4.0cm) FS (%) 34.3 %SV85.2 ml Aortic Valve AoV Peak Bernardo.150.8cm/sAoV VTI28.7cm AO Peak GR.9.1mmHgLVOT VTI 21.04cm AO Mean GR.7mmHg TDI Lateral E' P. V9.85cm/sMedial E' P. V4.31cm/s Tricuspid Valve TR P. [id number] [id number] TR Peak Gr.[id number] LEFT VENTRICLE The left ventricle is normal size. There is mild concentric left ventricular hypertrophy. The left ve ntricular systolic function is normal and the ejection fraction is within normal range. The Ejection Fraction is 50-55%. Septal motion consistent with conduction abnormality. Diastology indeterminate du e to atrial fibrillation. RIGHT VENTRICLE The right ventricle is normal size. The right ventricle is mildly hypertrophied. The right ventricula r systolic function is normal. ATRIA The left atrium is mildly dilated. The right atrium is borderline dilated. The interatrial septum is intact with no evidence for an atrial septal defect or patent foramen ovale as noted on 2-D or Dopple r imaging. AORTIC VALVE The aortic valve is thickened but opens well. Doppler and Color Flow revealed trace aortic regurgitat ion. There is no significant aortic valvular stenosis. MITRAL VALVE The mitral valve is normal in structure and function. There is no evidence of mitral valve prolapse. There is no mitral valve stenosis. Doppler and Color-flow revealed trace mitral regurgitation. TRICUSPID VALVE The tricuspid valve is normal in structure and function. Doppler and Color Flow revealed trace to mil d tricuspid regurgitation with an estimated PAP of 51 mmHg. There is no tricuspid valve stenosis. PULMONIC VALVE The pulmonic valve is not well visualized. Doppler and Color Flow revealed trace pulmonic valvular re gurgitation. GREAT VESSELS The aortic root is normal in size. The IVC is dilated and collapses <50% with inspiration. PERICARDIAL EFFUSION There is no evidence of significant pericardial effusion. Critical Notification Critical Value: No <Conclusion> The left ventricle is normal size. The left ventricular systolic function is normal and the ejection fraction is within normal range. The Ejection Fraction is 50-55%. There is mild concentric left ventricular hypertrophy. Doppler and Color Flow revealed trace aortic regurgitation. There is no significant aortic valvular stenosis. Doppler and Color-flow revealed trace mitral regurgitation. Doppler and Color Flow revealed trace to mild tricuspid regurgitation with an estimated PAP of 51 mmH g. Signed by : Elmer Romero MD Electronically Approved : 08/04/2019 16:18:11
[2019-08-04] MEDS: ATORVASTATIN CALCIUM 40 MG TABLET. PO SCH (21:50)
[2019-08-04] MEDS: INSULIN GLARGINE SYRINGE. SQ SCH (21:54)
[2019-08-05 03:55] VITALS: BP 218/95
[2019-08-05] MEDS: hydrALAZINE 20 MG/ML VIAL. IVP PRN ×3 (04:05→20:04)
[2019-08-05 04:12] LABS: BASO % 1 % (0-3); EOS # 0.3 x10^3/uL (0.0-0.7); EOS % 4 % (0-3); HEMOGLOBIN 7.9 g/dL (12.0-15.5); LYMPH # 1.1 x10^3/uL (1.0-4.8); LYMPH % 13 % (24-48); MEAN CORPUSCULAR HEMOGLOBIN 29 pg (25-35); MEAN CORPUSCULAR HGB CONC 33 g/dL (31-37); MEAN CORPUSCULAR VOLUME 89 fL (79-100); MONO # 0.6 x10^3/uL (0.0-1.1); MONO % 7 % (0-9); NEUT # 6.5 x10^3/uL (1.8-7.7); NEUT % 76 % (31-73); PLATELET COUNT 204 x10^3/uL (140-400); RED CELL DISTRIBUTION WIDTH 17.1 % (11.5-14.5); WHITE BLOOD COUNT 8.6 x10^3/uL (4.0-11.0)
[2019-08-05 04:42] LABS: CALCIUM 8.8 mg/dL (8.5-10.1); CREATININE 4.5 mg/dL (0.6-1.0); GFR 10.1; MAGNESIUM 2.1 mg/dL (1.8-2.4); POTASSIUM 4.5 mmol/L (3.5-5.1)
[2019-08-05] MEDS: METOPROLOL TART IMMED RELEASE 25 MG TABLET. PO SCH ×4 (05:35→23:44)
[2019-08-05 07:00] VITALS: BP 206/92
[2019-08-05] MEDS: INSULIN LISPRO 300 UNITS/3 ML VIAL. SQ SCH ×3 (07:50→16:57)
--- NOTE | 2019-08-05 08:07 | RAD ---
CHEST PA LATERAL INDICATION: CHF. COMPARISON STUDY: 08/03/2019. FINDINGS: Lungs: Normal lung volume. Improving interstitial prominence. Pleura: No pleural effusion or pneumothorax. Heart and Mediastinum: Stable cardiomediastinal silhouette and great vessels. Bones and Soft Tissues: Stable regional skeleton and soft tissues. IMPRESSION: Improving interstitial prominence. Electronically signed by: Jordan Guerin MD (08/05/2019 8:04 AM) [id number]
[2019-08-05] MEDS: ASPIRIN ENTERIC COATED 81 MG TABLET.DR. PO SCH (08:28)
[2019-08-05] MEDS: BUMETANIDE 1 MG/4 ML VIAL. IV SCH ×2 (08:29→14:52)
[2019-08-05] MEDS: metOLazone 2.5 MG TABLET PO SCH ×2 (08:29→17:13)
[2019-08-05] MEDS: ISOSORBIDE MONONITRATE ER 30 MG TAB.ER.24H PO SCH (08:29)
--- NOTE | 2019-08-05 10:09 | PDOC ---
IM PROGRESS NOTES- Subjective Subjective No complaints of chest pains or dyspnea. Objective Vitals/I&O Vital Signs Date Time Temp Pulse Resp B/P (MAP) Pulse Ox O2 Delivery O2 Flow Rate FiO2 08/05/19 08:30 58 206/92 08/05/19 07:50 Room Air 08/05/19 07:00 97.6 20 94 97.6 I & O 08/04/19 08/04/19 08/05/19 15:00 23:00 07:00 Intake Total 1230 ml 440 ml Output Total 850 ml 1100 ml Balance -850 ml 130 ml 440 ml Physical Exam Physical Exam General appearance - alert,well appearing, and in no distress and oriented to person, place, and time Mental Status - alert, oriented to person, place, and time, affect appropriate to mood Head - normal Chest -decreased breath sounds at bases Heart - S1 and S2 normal Abdomen - soft, nontender Neurological - alert and oriented Musculoskeletal - no muscular tenderness noted Extremities - pedal edema+ Skin - warm and dry Labs Laboratory Tests Test 08/04/19 11:50 08/04/19 21:02 08/05/19 03:39 08/05/19 07:43 Glucose (Fingerstick) 132 mg/dL (70-99) H 161 mg/dL (70-99) H 126 mg/dL (70-99) H White Blood Count 8.6 x10^3/uL (4.0-11.0) Red Blood Count 2.70 x10^6/uL (3.50-5.40) L Hemoglobin 7.9 g/dL (12.0-15.5) L Hematocrit 24.0 % (36.0-47.0) L Mean Corpuscular Volume 89 fL (79-100) Mean Corpuscular Hemoglobin 29 pg (25-35) Mean Corpuscular Hemoglobin Concent 33 g/dL (31-37) Red Cell Distribution Width 17.1 % (11.5-14.5) H Platelet Count 204 x10^3/uL (140-400) Neutrophils (%) (Auto) 76 % (31-73) H Lymphocytes (%) (Auto) 13 % (24-48) L Monocytes (%) (Auto) 7 % (0-9) Eosinophils (%) (Auto) 4 % (0-3) H Basophils (%) (Auto) 1 % (0-3) Neutrophils # (Auto) 6.5 x10^3/uL (1.8-7.7) Lymphocytes # (Auto) 1.1 x10^3/uL (1.0-4.8) Monocytes # (Auto) 0.6 x10^3/uL (0.0-1.1) Eosinophils # (Auto) 0.3 x10^3/uL (0.0-0.7) Basophils # (Auto) 0.0 x10^3/uL (0.0-0.2) Sodium Level 141 mmol/L (136-145) Potassium Level 4.5 mmol/L (3.5-5.1) Chloride Level 107 mmol/L (98-107) Carbon Dioxide Level 19 mmol/L (21-32) L Anion Gap 15 (6-14) H Blood Urea Nitrogen 75 mg/dL (7-20) H Creatinine 4.5 mg/dL (0.6-1.0) H Estimated GFR (Cockcroft-Gault) 10.1 Glucose Level 120 mg/dL (70-99) H Calcium Level 8.8 mg/dL (8.5-10.1) Magnesium Level 2.1 mg/dL (1.8-2.4) Laboratory Tests 08/05/19 03:39 Laboratory Tests 08/05/19 03:39 Meds Current Medications Medications (Trade) Dose Ordered Sig/Joshua Route PRN Reason Start Time Stop Time Status Last Admin Dose Admin Insulin Glargine (Lantus Syringe) 20 unit QHS SQ 08/04/19 21:00 08/04/19 21:54 Metoprolol Tartrate (Lopressor) 25 mg 1X ONCE PO 08/04/19 10:45 08/04/19 10:46 DC 08/04/19 10:50 Metoprolol Tartrate (Lopressor) 25 mg Q6HRS PO 08/04/19 12:00 08/05/19 05:35 Digoxin (Lanoxin) 500 mcg 1X ONCE IV 08/04/19 12:00 08/04/19 12:01 DC 08/04/19 12:03 Hydralazine HCl (Apresoline) 100 mg TID PO 08/04/19 14:00 08/05/19 08:30 Aspirin (Ecotrin) 81 mg DAILYWBKFT PO 08/04/19 14:00 08/05/19 08:28 Assessment Assessment 1. Severe anemia secondary to chronic kidney disease. 2. Chronic kidney disease, stage 5. Creatinine around 5. 3. Diastolic heart failure, 50-60% ejection fraction. 4. Nephrotic syndrome. 5. Insulin-dependent diabetes. 6. Hypertension, accelerated/malignant. 7. Hyperlipidemia. PLAN: At this time, was admitted to the hospital, IV Bumex. Continue Zaroxolyn p.o. Nephrology is consulted. Monitor electrolytes and magnesium. Cardiology is consulted. Hypertensive crisis -Blood pressure is 218/95. I will add amlodipine 5 mg daily and increase hydralazine 200 mg 4 times a day. Echocardiogram The left ventricle is normal size. The left ventricular systolic function is normal and the ejection fraction is within normal range. The Ejection Fraction is 50-55%. There is mild concentric left ventricular hypertrophy. Doppler and Color Flow revealed trace aortic regurgitation. There is no significant aortic valvular stenosis. Doppler and Color-flow revealed trace mitral regurgitation. Doppler and Color Flow revealed trace to mild tricuspid regurgitation with an estimated PAP of 51 mm Hg. Anemia status post blood transfusion hemoglobin is 7.9 Chronic kidney disease stage V - BUN 75, creatinine 4.5. Plan Plan For more details regarding further plans, please refer to the orders. ANNE MARIE TAYLOR MD Aug 05, 2019 10:09
--- NOTE | 2019-08-05 10:11 | PDOC ---
PROGRESS NOTES Subjective Subjective Patient seen and evaluated Objective Objective Vital Signs Date Time Temp Pulse Resp B/P (MAP) Pulse Ox O2 Delivery O2 Flow Rate FiO2 08/05/19 08:30 58 206/92 08/05/19 07:50 Room Air 08/05/19 07:00 97.6 20 94 97.6 08/03/19 19:33 2.0 Intake and Output 08/05/19 07:00 Intake Total 1670 ml Output Total 1950 ml Balance -280 ml Intake Oral 1390 ml Blood Product IV Normal Saline Flush 280 ml Output Urine Total 1950 ml # Voids 1 # Bowel Movements 1 Physical Exam Abdomen: Normal bowel sounds Heart: Regular rate General: No acute distress Assessment Assessment Problems Medical Problems: (1) Acute exacerbation of CHF (congestive heart failure) Status: Acute (2) Anemia Status: Acute (3) HTN (hypertension) Status: Acute 1. KATJA on CKD4-5: Morning lab BUN/creat of 75/4.5. Followed by renal. 2. Malignant HTN: Still elevated will increase medication. 3. PAFIB with RVR: Morning rhythm is sinus. 4. Acute on chronic diastolic CHF: improved. ECHO with normal LV systolic function, mild LVH and moderately elevated PAP at 51 mmHg. 5. Anemia of chronic disease: initially at 6.7. Morning H/H of 7.9/24.0. 6. DM2 7. HLP: lipids are on goal 8. Morbid obesity 9. LE PAD: no claudications or wounds. Comment Review of Relevant I have reviewed the following items allen (where applicable) has been applied. Labs Laboratory Tests Test 08/03/19 14:27 08/03/19 16:00 08/03/19 21:50 08/04/19 04:07 White Blood Count 8.2 x10^3/uL (4.0-11.0) 8.8 x10^3/uL (4.0-11.0) Red Blood Count 2.34 x10^6/uL (3.50-5.40) 2.42 x10^6/uL (3.50-5.40) Hemoglobin 6.7 g/dL (12.0-15.5) 7.0 g/dL (12.0-15.5) Hematocrit 20.6 % (36.0-47.0) 21.1 % (36.0-47.0) Mean Corpuscular Volume 88 fL (79-100) 87 fL (79-100) Mean Corpuscular Hemoglobin 29 pg (25-35) 29 pg (25-35) Mean Corpuscular Hemoglobin Concent 33 g/dL (31-37) 33 g/dL (31-37) Red Cell Distribution Width 16.9 % (11.5-14.5) 17.2 % (11.5-14.5) Platelet Count 215 x10^3/uL (140-400) 195 x10^3/uL (140-400) Neutrophils (%) (Auto) 81 % (31-73) 79 % (31-73) Lymphocytes (%) (Auto) 11 % (24-48) 12 % (24-48) Monocytes (%) (Auto) 5 % (0-9) 6 % (0-9) Eosinophils (%) (Auto) 3 % (0-3) 3 % (0-3) Basophils (%) (Auto) 1 % (0-3) 0 % (0-3) Neutrophils # (Auto) 6.7 x10^3/uL (1.8-7.7) 6.9 x10^3/uL (1.8-7.7) Lymphocytes # (Auto) 0.9 x10^3/uL (1.0-4.8) 1.1 x10^3/uL (1.0-4.8) Monocytes # (Auto) 0.4 x10^3/uL (0.0-1.1) 0.5 x10^3/uL (0.0-1.1) Eosinophils # (Auto) 0.2 x10^3/uL (0.0-0.7) 0.2 x10^3/uL (0.0-0.7) Basophils # (Auto) 0.0 x10^3/uL (0.0-0.2) 0.0 x10^3/uL (0.0-0.2) Prothrombin Time 12.8 SEC (11.7-14.0) Prothromb Time International Ratio 1.0 (0.8-1.1) Activated Partial Thromboplast Time 27 SEC (24-38) Sodium Level 139 mmol/L (136-145) 141 mmol/L (136-145) Potassium Level 4.4 mmol/L (3.5-5.1) 4.4 mmol/L (3.5-5.1) Chloride Level 106 mmol/L (98-107) 108 mmol/L (98-107) Carbon Dioxide Level 18 mmol/L (21-32) 19 mmol/L (21-32) Anion Gap 15 (6-14) 14 (6-14) Blood Urea Nitrogen 78 mg/dL (7-20) 79 mg/dL (7-20) Creatinine 4.6 mg/dL (0.6-1.0) 4.5 mg/dL (0.6-1.0) Estimated GFR (Cockcroft-Gault) 9.9 10.1 BUN/Creatinine Ratio 17 (6-20) Glucose Level 183 mg/dL (70-99) 98 mg/dL (70-99) Calcium Level 9.1 mg/dL (8.5-10.1) 8.7 mg/dL (8.5-10.1) Total Bilirubin 0.6 mg/dL (0.2-1.0) Aspartate Amino Transf (AST/SGOT) 11 U/L (15-37) Alanine Aminotransferase (ALT/SGPT) 20 U/L (14-59) Alkaline Phosphatase 130 U/L (46-116) Troponin I Quantitative < 0.017 ng/mL (0.000-0.055) XY-Nqi-H-Type Natriuretic Peptide 84247 pg/mL (0-124) Total Protein 7.0 g/dL (6.4-8.2) Albumin 3.3 g/dL (3.4-5.0) Albumin/Globulin Ratio 0.9 (1.0-1.7) Urine Collection Type Unknown Urine Color Straw Urine Clarity Clear Urine pH 6.0 (<5.0-8.0) Urine Specific [place] 1.010 (1.000-1.030) Urine Protein 100 mg/dL (NEG-TRACE) Urine Glucose (UA) 100 mg/dL (NEG) Urine Ketones (Stick) Negative mg/dL (NEG) Urine Blood Negative (NEG) Urine Nitrite Negative (NEG) Urine Bilirubin Negative (NEG) Urine Urobilinogen Dipstick 0.2 mg/dL (0.2 mg/dL) Urine Leukocyte Esterase Trace (NEG) Urine RBC Occ /HPF (0-2) Urine WBC 5-10 /HPF (0-4) Urine Squamous Epithelial Cells Many /LPF Urine Bacteria Moderate /HPF (0-FEW) Glucose (Fingerstick) 145 mg/dL (70-99) Triglycerides Level 72 mg/dL (0-150) Cholesterol Level 96 mg/dL (0-200) LDL Cholesterol, Calculated 45 mg/dL (0-100) VLDL Cholesterol, Calculated 14 mg/dL (0-40) Non-HDL Cholesterol Calculated 59 mg/dL (0-129) HDL Cholesterol 37 mg/dL (40-60) Cholesterol/HDL Ratio 2.6 Thyroid Stimulating Hormone (TSH) 1.722 uIU/mL (0.358-3.74) Test 08/04/19 07:44 08/04/19 11:50 08/04/19 21:02 08/05/19 03:39 Glucose (Fingerstick) 102 mg/dL (70-99) 132 mg/dL (70-99) 161 mg/dL (70-99) White Blood Count 8.6 x10^3/uL (4.0-11.0) Red Blood Count 2.70 x10^6/uL (3.50-5.40) Hemoglobin 7.9 g/dL (12.0-15.5) Hematocrit 24.0 % (36.0-47.0) Mean Corpuscular Volume 89 fL (79-100) Mean Corpuscular Hemoglobin 29 pg (25-35) Mean Corpuscular Hemoglobin Concent 33 g/dL (31-37) Red Cell Distribution Width 17.1 % (11.5-14.5) Platelet Count 204 x10^3/uL (140-400) Neutrophils (%) (Auto) 76 % (31-73) Lymphocytes (%) (Auto) 13 % (24-48) Monocytes (%) (Auto) 7 % (0-9) Eosinophils (%) (Auto) 4 % (0-3) Basophils (%) (Auto) 1 % (0-3) Neutrophils # (Auto) 6.5 x10^3/uL (1.8-7.7) Lymphocytes # (Auto) 1.1 x10^3/uL (1.0-4.8) Monocytes # (Auto) 0.6 x10^3/uL (0.0-1.1) Eosinophils # (Auto) 0.3 x10^3/uL (0.0-0.7) Basophils # (Auto) 0.0 x10^3/uL (0.0-0.2) Sodium Level 141 mmol/L (136-145) Potassium Level 4.5 mmol/L (3.5-5.1) Chloride Level 107 mmol/L (98-107) Carbon Dioxide Level 19 mmol/L (21-32) Anion Gap 15 (6-14) Blood Urea Nitrogen 75 mg/dL (7-20) Creatinine 4.5 mg/dL (0.6-1.0) Estimated GFR (Cockcroft-Gault) 10.1 Glucose Level 120 mg/dL (70-99) Calcium Level 8.8 mg/dL (8.5-10.1) Magnesium Level 2.1 mg/dL (1.8-2.4) Test 08/05/19 07:43 Glucose (Fingerstick) 126 mg/dL (70-99) Laboratory Tests Test 08/04/19 11:50 08/04/19 21:02 08/05/19 03:39 08/05/19 07:43 Glucose (Fingerstick) 132 mg/dL (70-99) 161 mg/dL (70-99) 126 mg/dL (70-99) White Blood Count 8.6 x10^3/uL (4.0-11.0) Red Blood Count 2.70 x10^6/uL (3.50-5.40) Hemoglobin 7.9 g/dL (12.0-15.5) Hematocrit 24.0 % (36.0-47.0) Mean Corpuscular Volume 89 fL (79-100) Mean Corpuscular Hemoglobin 29 pg (25-35) Mean Corpuscular Hemoglobin Concent 33 g/dL (31-37) Red Cell Distribution Width 17.1 % (11.5-14.5) Platelet Count 204 x10^3/uL (140-400) Neutrophils (%) (Auto) 76 % (31-73) Lymphocytes (%) (Auto) 13 % (24-48) Monocytes (%) (Auto) 7 % (0-9) Eosinophils (%) (Auto) 4 % (0-3) Basophils (%) (Auto) 1 % (0-3) Neutrophils # (Auto) 6.5 x10^3/uL (1.8-7.7) Lymphocytes # (Auto) 1.1 x10^3/uL (1.0-4.8) Monocytes # (Auto) 0.6 x10^3/uL (0.0-1.1) Eosinophils # (Auto) 0.3 x10^3/uL (0.0-0.7) Basophils # (Auto) 0.0 x10^3/uL (0.0-0.2) Sodium Level 141 mmol/L (136-145) Potassium Level 4.5 mmol/L (3.5-5.1) Chloride Level 107 mmol/L (98-107) Carbon Dioxide Level 19 mmol/L (21-32) Anion Gap 15 (6-14) Blood Urea Nitrogen 75 mg/dL (7-20) Creatinine 4.5 mg/dL (0.6-1.0) Estimated GFR (Cockcroft-Gault) 10.1 Glucose Level 120 mg/dL (70-99) Calcium Level 8.8 mg/dL (8.5-10.1) Magnesium Level 2.1 mg/dL (1.8-2.4) Microbiology 08/03/19 Urine Culture - Final, Complete 08/03/19 Urine Culture Result 1 (DAKOTA) - Final, Complete Medications Current Medications Furosemide (Lasix) 20 mg 1X ONCE IVP ; Start 08/03/19 at 15:45; Stop 08/03/19 at 15:46; Status Cancel Furosemide (Lasix) 40 mg 1X ONCE IVP Last administered on 08/03/19at 16:02; Start 08/03/19 at 16:00; Stop 08/03/19 at 16:01; Status DC Hydralazine HCl (Apresoline Inj) 10 mg 1X ONCE IVP Last administered on 08/03/19at 17:31; Start 08/03/19 at 17:30; Stop 08/03/19 at 17:31; Status DC Atorvastatin Calcium (Lipitor) 40 mg QHS PO Last administered on 08/04/19at 21:50; Start 08/03/19 at 22:00 Metolazone (Zaroxolyn) 2.5 mg [id number] PO Last administered on 08/05/19at 08:29; Start 08/04/19 at 09:00 Isosorbide Mononitrate (Imdur) 60 mg DAILY PO Last administered on 08/05/19at 08:29; Start 08/04/19 at 09:00 Hydralazine HCl (Apresoline Inj) 10 mg PRN Q4HRS PRN IVP ELEVATED BP, SEE COMMENTS Last administered on 08/05/19at 04:05; Start 08/03/19 at 21:15 Bumetanide (Bumex) 1 mg [id number] IV Last administered on 08/05/19at 08:29; Start 08/03/19 at 22:00 Insulin Human Lispro (HumaLOG) 0-5 UNITS TIDWMEALS SQ ; Start 08/03/19 at 22:00 Dextrose (Dextrose 50%-Water Syringe) 12.5 gm PRN Q15MIN PRN IV SEE COMMENTS; Start 08/03/19 at 21:15 Hydralazine HCl (Apresoline) 50 mg TID PO Last administered on 08/04/19at 08:13; Start 08/04/19 at 09:00; Stop 08/04/19 at 13:21; Status DC Acetaminophen/ Hydrocodone Bitart (Lortab 5/325) 1 tab PRN Q6HRS PRN PO MODERATE PAIN 4-6 Last administered on 08/03/19at 23:42; Start 08/03/19 at 23:30 Zolpidem Tartrate (Ambien) 5 mg PRN QHS PRN PO INSOMNIA, MAY REPEAT X1; Start 08/03/19 at 23:30 Insulin Glargine (Lantus Syringe) 20 unit QHS SQ Last administered on 08/04/19at 21:54; Start 08/04/19 at 21:00 Labetalol HCl (Normodyne Iv Push) 20 mg 1X ONCE IVP Last administered on 08/04/19at 09:17; Start 08/04/19 at 09:15; Stop 08/04/19 at 09:16; Status DC Metoprolol Tartrate (Lopressor) 25 mg 1X ONCE PO Last administered on 08/04/19at 10:50; Start 08/04/19 at 10:45; Stop 08/04/19 at 10:46; Status DC Metoprolol Tartrate (Lopressor) 25 mg Q6HRS PO Last administered on 08/05/19at 05:35; Start 08/04/19 at 12:00 Digoxin (Lanoxin) 500 mcg 1X ONCE IV Last administered on 08/04/19at 12:03; Start 08/04/19 at 12:00; Stop 08/04/19 at 12:01; Status DC Hydralazine HCl (Apresoline) 100 mg TID PO Last administered on 08/05/19at 08:30; Start 08/04/19 at 14:00 Aspirin (Ecotrin) 81 mg DAILYWBKFT PO Last administered on 08/05/19at 08:28; Start 08/04/19 at 14:00 Active Scripts Active Reported Metolazone 2.5 Mg Tablet 2.5 Mg PO BID Bumetanide 1 Mg Tablet 1 Tab PO BID Xultophy 100 Unit-3.6 mg/ml (Insulin Degludec/Liraglutide) 3 Ml Insuln.pen 20 Units SQ Atorvastatin Calcium 40 Mg Tablet 1 Tab PO QHS Isosorbide Mononitrate Er (Isosorbide Mononitrate) 60 Mg Tab.er.24h 1 Tab PO DAILY Hydralazine Hcl 50 Mg Tablet 1 Tab PO TID Novolog Flexpen (Insulin Aspart) 100 Unit/1 Ml Insuln.pen 10 Unit SQ TIDAC Vitals/I & O Vital Sign - Last 24 Hours 08/04/19 08/04/19 08/04/19 08/04/19 10:50 11:00 12:03 15:00 Temp 97.4 98.2 97.4 98.2 Pulse 115 137 125 97 Resp 22 22 B/P (MAP) 162/87 (112) 186/99 (128) Pulse Ox 94 94 O2 Delivery Room Air Room Air 08/04/19 08/04/19 08/04/19 08/04/19 15:32 15:40 15:56 16:28 Temp 98.5 98.5 98.5 98.5 98.5 98.5 Pulse 110 110 95 80 Resp 20 20 18 B/P (MAP) 205/95 205/95 197/82 08/04/19 08/04/19 08/04/19 08/04/19 16:56 17:26 17:56 17:58 Temp 98.2 98.3 98.3 98.2 98.3 98.3 Pulse 117 126 106 95 Resp 18 20 20 B/P (MAP) 201/81 214/88 159/74 08/04/19 08/04/19 08/04/19 08/04/19 19:15 19:55 21:50 23:19 Temp 98.9 97.7 98.9 97.7 Pulse 61 61 64 Resp 24 22 B/P (MAP) 175/76 (109) 175/76 183/74 (110) Pulse Ox 92 91 O2 Delivery Room Air Room Air Room Air 08/04/19 08/05/19 08/05/19 08/05/19 23:20 03:55 04:05 05:35 Temp 97.6 97.6 Pulse 64 52 64 64 Resp 21 B/P (MAP) 183/74 218/95 (136) 218/95 206/98 Pulse Ox 92 O2 Delivery Room Air 08/05/19 08/05/19 08/05/19 08/05/19 07:00 07:50 08:29 08:30 Temp 97.6 97.6 Pulse 58 58 58 Resp 20 B/P (MAP) 206/92 (130) 206/92 206/92 Pulse Ox 94 O2 Delivery Room Air Room Air Intake and Output 08/04/19 08/04/19 08/05/19 15:00 23:00 07:00 Intake Total 1230 ml 440 ml Output Total 850 ml 1100 ml Balance -850 ml 130 ml 440 ml FATOU LOPEZ MD Aug 05, 2019 10:10
[2019-08-05 11:00] VITALS: BP 214/95
[2019-08-05] MEDS: amLODIPine BESYLATE 5 MG TABLET PO SCH (11:03)
--- NOTE | 2019-08-05 11:53 | PDOC ---
Renal-Progress Notes Subjective Notes Notes NO NEW COMPLAINTS History of Present Illness Hx of present illness STABLE Vitals Vitals Vital Signs Date Time Temp Pulse Resp B/P (MAP) Pulse Ox O2 Delivery O2 Flow Rate FiO2 08/05/19 11:06 58 214/95 08/05/19 11:00 97.7 20 93 Room Air 97.7 Weight Weight [ ] I.O. Intake and Output Intake and Output 08/05/19 07:00 Intake Total 1670 ml Output Total 1950 ml Balance -280 ml Intake Oral 1390 ml Blood Product IV Normal Saline Flush 280 ml Output Urine Total 1950 ml # Voids 1 # Bowel Movements 1 Labs Labs Laboratory Tests Test 08/04/19 11:50 08/04/19 21:02 08/05/19 03:39 08/05/19 07:43 Glucose (Fingerstick) 132 mg/dL (70-99) 161 mg/dL (70-99) 126 mg/dL (70-99) White Blood Count 8.6 x10^3/uL (4.0-11.0) Red Blood Count 2.70 x10^6/uL (3.50-5.40) Hemoglobin 7.9 g/dL (12.0-15.5) Hematocrit 24.0 % (36.0-47.0) Mean Corpuscular Volume 89 fL (79-100) Mean Corpuscular Hemoglobin 29 pg (25-35) Mean Corpuscular Hemoglobin Concent 33 g/dL (31-37) Red Cell Distribution Width 17.1 % (11.5-14.5) Platelet Count 204 x10^3/uL (140-400) Neutrophils (%) (Auto) 76 % (31-73) Lymphocytes (%) (Auto) 13 % (24-48) Monocytes (%) (Auto) 7 % (0-9) Eosinophils (%) (Auto) 4 % (0-3) Basophils (%) (Auto) 1 % (0-3) Neutrophils # (Auto) 6.5 x10^3/uL (1.8-7.7) Lymphocytes # (Auto) 1.1 x10^3/uL (1.0-4.8) Monocytes # (Auto) 0.6 x10^3/uL (0.0-1.1) Eosinophils # (Auto) 0.3 x10^3/uL (0.0-0.7) Basophils # (Auto) 0.0 x10^3/uL (0.0-0.2) Sodium Level 141 mmol/L (136-145) Potassium Level 4.5 mmol/L (3.5-5.1) Chloride Level 107 mmol/L (98-107) Carbon Dioxide Level 19 mmol/L (21-32) Anion Gap 15 (6-14) Blood Urea Nitrogen 75 mg/dL (7-20) Creatinine 4.5 mg/dL (0.6-1.0) Estimated GFR (Cockcroft-Gault) 10.1 Glucose Level 120 mg/dL (70-99) Calcium Level 8.8 mg/dL (8.5-10.1) Magnesium Level 2.1 mg/dL (1.8-2.4) Micro Micro Microbiology 08/03/19 Urine Culture - Final, Complete 08/03/19 Urine Culture Result 1 (DAKOTA) - Final, Complete Review of Systems Constitutional: yes: alert, oriented Ears/Nose/Throat: Yes: no symptom reported Eyes: Yes: no symptom reported Pulmonary: Yes no symptom reported Cardiovascular: Yes no symptom reported Gastrointestional: Yes: no symptom reported Musculoskeletal: Yes: no symptom reported Skin: Yes no symptom reported Endocrine: Yes: no symptom reported Physical Exam General Appearance: no apparent distress Respiratory: bilateral CTA Heart: S1S2 Abdomen: soft, bowel sounds present Genitourinary: bladder flat Extremities: pulses present Neurology: alert, oriented Assessment Assessment IMP NEW ESRD MET ACIDOSIS ANEMIA HTN DM II NON COMPLIANCE PLAN WILL START HD ON WEDNESDAY EVENTUALLY DO PD CHECK IRON GABRIEL WHEN BP IS BETTER CONTROLLED CHECK PO4 ADD NAHCO3 ENC COMPLIANCE AGREE WITH [facility]VAS WILL FOLLOW CECI PICHARDO MD Aug 05, 2019 11:53
[2019-08-05 15:00] VITALS: BP 193/86
[2019-08-05 19:45] VITALS: BP 206/84
[2019-08-05] MEDS: ATORVASTATIN CALCIUM 40 MG TABLET. PO SCH (20:55)
[2019-08-05] MEDS: INSULIN GLARGINE SYRINGE. SQ SCH (21:00)
[2019-08-05] MEDS: ONDANSETRON PF 4 MG/2 ML VIAL. IVP PRN (22:46)
[2019-08-05 23:05] VITALS: BP 174/73
[2019-08-06] VITALS (7 sets, daily range): BP systolic 137–217; BP diastolic 68–99
[2019-08-06] MEDS: METOPROLOL TART IMMED RELEASE 25 MG TABLET. PO SCH ×3 (05:50→18:00)
[2019-08-06 06:08] LABS: HEMOGLOBIN A1C 5.5 % (4.8-5.6)
[2019-08-06 06:58] LABS: CALCIUM 8.7 mg/dL (8.5-10.1); CREATININE 4.6 mg/dL (0.6-1.0); GFR 9.9; POTASSIUM 4.7 mmol/L (3.5-5.1)
[2019-08-06 07:15] LABS: HEMATOCRIT 23.5 % (36.0-47.0); HEMOGLOBIN 7.7 g/dL (12.0-15.5); RED BLOOD COUNT 2.63 x10^6/uL (3.50-5.40); RED CELL DISTRIBUTION WIDTH 16.7 % (11.5-14.5); WHITE BLOOD COUNT 9.1 x10^3/uL (4.0-11.0)
[2019-08-06] MEDS: INSULIN LISPRO 300 UNITS/3 ML VIAL. SQ SCH ×3 (08:00→17:00)
[2019-08-06] MEDS: metOLazone 2.5 MG TABLET PO SCH ×2 (08:59→17:21)
[2019-08-06] MEDS: ASPIRIN ENTERIC COATED 81 MG TABLET.DR. PO SCH (08:59)
[2019-08-06] MEDS: BUMETANIDE 1 MG/4 ML VIAL. IV SCH ×2 (08:59→14:26)
[2019-08-06] MEDS: ISOSORBIDE MONONITRATE ER 30 MG TAB.ER.24H PO SCH (09:00)
[2019-08-06] MEDS: amLODIPine BESYLATE 5 MG TABLET PO SCH (09:00)
[2019-08-06] MEDS ORDERED: amLODIPine BESYLATE 5 MG TABLET PO SCH (10:15)
[2019-08-06] MEDS ORDERED: ACETAMINOPHEN 325 MG TABLET. PO PRN (10:15)
--- NOTE | 2019-08-06 10:17 | PDOC ---
IM PROGRESS NOTES- Subjective Subjective No complaints of chest pains or dyspnea. She vomited yesterday. Objective Vitals/I&O Vital Signs Date Time Temp Pulse Resp B/P (MAP) Pulse Ox O2 Delivery O2 Flow Rate FiO2 08/06/19 09:01 190/91 08/06/19 08:00 Room Air 08/06/19 07:14 97.6 55 22 92 97.6 08/05/19 20:11 2.0 I & O 08/05/19 08/05/19 08/06/19 15:00 23:00 07:00 Intake Total 550 ml 650 ml 310 ml Balance 550 ml 650 ml 310 ml Physical Exam Physical Exam General appearance - alert,well appearing, and in no distress and oriented to person, place, and time Mental Status - alert, oriented to person, place, and time, affect appropriate to mood Head - normal Chest -decreased breath sounds at bases Heart - S1 and S2 normal Abdomen - soft, nontender Neurological - alert and oriented Musculoskeletal - no muscular tenderness noted Extremities - pedal edema+ Skin - warm and dry Labs Laboratory Tests Test 08/05/19 12:02 08/05/19 16:44 08/05/19 20:58 08/06/19 04:40 Glucose (Fingerstick) 144 mg/dL (70-99) H 148 mg/dL (70-99) H 135 mg/dL (70-99) H White Blood Count 9.1 x10^3/uL (4.0-11.0) Red Blood Count 2.63 x10^6/uL (3.50-5.40) L Hemoglobin 7.7 g/dL (12.0-15.5) L Hematocrit 23.5 % (36.0-47.0) L Mean Corpuscular Volume 90 fL (79-100) Mean Corpuscular Hemoglobin 29 pg (25-35) Mean Corpuscular Hemoglobin Concent 33 g/dL (31-37) Red Cell Distribution Width 16.7 % (11.5-14.5) H Platelet Count 205 x10^3/uL (140-400) Sodium Level 140 mmol/L (136-145) Potassium Level 4.7 mmol/L (3.5-5.1) Chloride Level 106 mmol/L (98-107) Carbon Dioxide Level 19 mmol/L (21-32) L Anion Gap 15 (6-14) H Blood Urea Nitrogen 74 mg/dL (7-20) H Creatinine 4.6 mg/dL (0.6-1.0) H Estimated GFR (Cockcroft-Gault) 9.9 Glucose Level 121 mg/dL (70-99) H Calcium Level 8.7 mg/dL (8.5-10.1) Phosphorus Level 6.0 mg/dL (2.6-4.7) H Iron Level 52 ug/dL (50-170) Total Iron Binding Capacity 229 ug/dL (250-450) L Iron Saturation 23 % (15-34) Test 08/06/19 07:18 Glucose (Fingerstick) 121 mg/dL (70-99) H Laboratory Tests 08/06/19 04:40 Laboratory Tests 08/06/19 04:40 Meds Current Medications Medications (Trade) Dose Ordered Sig/Joshua Route PRN Reason Start Time Stop Time Status Last Admin Dose Admin Hydralazine HCl (Apresoline) 100 mg QID PO 08/05/19 13:00 08/06/19 09:01 Ondansetron HCl (Zofran) 4 mg PRN Q6HRS PRN IVP Nausea 1ST CHOICE 08/05/19 22:45 08/05/19 22:46 Assessment Assessment 1. Severe anemia secondary to chronic kidney disease. 2. Chronic kidney disease, stage 5. Creatinine around 5. 3. Diastolic heart failure, 50-60% ejection fraction. 4. Nephrotic syndrome. 5. Insulin-dependent diabetes. 6. Hypertension, accelerated/malignant. 7. Hyperlipidemia. PLAN: At this time, was admitted to the hospital, IV Bumex. Continue Zaroxolyn p.o. Nephrology is consulted. Monitor electrolytes and magnesium. Cardiology is consulted. Hypertensive crisis -Blood pressure is still very high. Systolic blood pressure is 191. Hydralazine 100 mg p.o. 4 times a day. Increase amlodipine to 10 mg daily. Echocardiogram The left ventricle is normal size. The left ventricular systolic function is normal and the ejection fraction is within normal range. The Ejection Fraction is 50-55%. There is mild concentric left ventricular hypertrophy. Doppler and Color Flow revealed trace aortic regurgitation. There is no significant aortic valvular stenosis. Doppler and Color-flow revealed trace mitral regurgitation. Doppler and Color Flow revealed trace to mild tricuspid regurgitation with an estimated PAP of 51 mm Hg. Anemia status post blood transfusion hemoglobin is 7.9 Chronic kidney disease stage V -creatinine is 4.[address] Soto has recommended hemodialysis from tomorrow but patient is reluctant. She is thinki ng about it. Condition, treatment and options discussed with the patient. Plan Plan For more details regarding further plans, please refer to the orders. ANNE MARIE TAYLOR MD Aug 06, 2019 10:17
[2019-08-06] MEDS ORDERED: amLODIPine BESYLATE 5 MG TABLET PO ONE (10:45)
--- NOTE | 2019-08-06 10:50 | PDOC ---
PROGRESS NOTES Subjective Subjective Patient seen and examined Objective Objective Vital Signs Date Time Temp Pulse Resp B/P (MAP) Pulse Ox O2 Delivery O2 Flow Rate FiO2 08/06/19 09:01 190/91 08/06/19 08:00 Room Air 08/06/19 07:14 97.6 55 22 92 97.6 08/05/19 20:11 2.0 Intake and Output 08/06/19 07:00 Intake Total 1510 ml Balance 1510 ml Intake Oral 1510 ml # Voids 5 Physical Exam Abdomen: Normal bowel sounds Heart: Regular rate General: mild distress Lungs: Other (Mildly decreased breath sounds) Assessment Assessment Problems Medical Problems: (1) Acute exacerbation of CHF (congestive heart failure) Status: Acute (2) Anemia Status: Acute (3) HTN (hypertension) Status: Acute 1. KATJA on CKD4-5: Morning lab. BUN/creat NOW AT 74/4.6. Followed by renal. 2. Malignant HTN: Still elevated. Will increase norvasc. 3. PAFIB with RVR: Morning rhythm is sinus. 4. Acute on chronic diastolic CHF: improved. ECHO with normal LV systolic function, mild LVH and moderately elevated PAP at 51 mmHg. 5. Anemia of chronic disease: initially at 6.7. Improved. 6. DM2 7. HLP: lipids are on goal 8. Morbid obesity 9. LE PAD: no claudications or wounds. Comment Review of Relevant I have reviewed the following items allen (where applicable) has been applied. Labs Laboratory Tests Test 08/04/19 11:50 08/04/19 21:02 08/05/19 03:39 08/05/19 07:43 Glucose (Fingerstick) 132 mg/dL (70-99) 161 mg/dL (70-99) 126 mg/dL (70-99) White Blood Count 8.6 x10^3/uL (4.0-11.0) Red Blood Count 2.70 x10^6/uL (3.50-5.40) Hemoglobin 7.9 g/dL (12.0-15.5) Hematocrit 24.0 % (36.0-47.0) Mean Corpuscular Volume 89 fL (79-100) Mean Corpuscular Hemoglobin 29 pg (25-35) Mean Corpuscular Hemoglobin Concent 33 g/dL (31-37) Red Cell Distribution Width 17.1 % (11.5-14.5) Platelet Count 204 x10^3/uL (140-400) Neutrophils (%) (Auto) 76 % (31-73) Lymphocytes (%) (Auto) 13 % (24-48) Monocytes (%) (Auto) 7 % (0-9) Eosinophils (%) (Auto) 4 % (0-3) Basophils (%) (Auto) 1 % (0-3) Neutrophils # (Auto) 6.5 x10^3/uL (1.8-7.7) Lymphocytes # (Auto) 1.1 x10^3/uL (1.0-4.8) Monocytes # (Auto) 0.6 x10^3/uL (0.0-1.1) Eosinophils # (Auto) 0.3 x10^3/uL (0.0-0.7) Basophils # (Auto) 0.0 x10^3/uL (0.0-0.2) Sodium Level 141 mmol/L (136-145) Potassium Level 4.5 mmol/L (3.5-5.1) Chloride Level 107 mmol/L (98-107) Carbon Dioxide Level 19 mmol/L (21-32) Anion Gap 15 (6-14) Blood Urea Nitrogen 75 mg/dL (7-20) Creatinine 4.5 mg/dL (0.6-1.0) Estimated GFR (Cockcroft-Gault) 10.1 Glucose Level 120 mg/dL (70-99) Hemoglobin A1c 5.5 % (4.8-5.6) Calcium Level 8.8 mg/dL (8.5-10.1) Magnesium Level 2.1 mg/dL (1.8-2.4) Test 08/05/19 12:02 08/05/19 16:44 08/05/19 20:58 08/06/19 04:40 Glucose (Fingerstick) 144 mg/dL (70-99) 148 mg/dL (70-99) 135 mg/dL (70-99) White Blood Count 9.1 x10^3/uL (4.0-11.0) Red Blood Count 2.63 x10^6/uL (3.50-5.40) Hemoglobin 7.7 g/dL (12.0-15.5) Hematocrit 23.5 % (36.0-47.0) Mean Corpuscular Volume 90 fL (79-100) Mean Corpuscular Hemoglobin 29 pg (25-35) Mean Corpuscular Hemoglobin Concent 33 g/dL (31-37) Red Cell Distribution Width 16.7 % (11.5-14.5) Platelet Count 205 x10^3/uL (140-400) Sodium Level 140 mmol/L (136-145) Potassium Level 4.7 mmol/L (3.5-5.1) Chloride Level 106 mmol/L (98-107) Carbon Dioxide Level 19 mmol/L (21-32) Anion Gap 15 (6-14) Blood Urea Nitrogen 74 mg/dL (7-20) Creatinine 4.6 mg/dL (0.6-1.0) Estimated GFR (Cockcroft-Gault) 9.9 Glucose Level 121 mg/dL (70-99) Calcium Level 8.7 mg/dL (8.5-10.1) Phosphorus Level 6.0 mg/dL (2.6-4.7) Iron Level 52 ug/dL (50-170) Total Iron Binding Capacity 229 ug/dL (250-450) Iron Saturation 23 % (15-34) Test 08/06/19 07:18 Glucose (Fingerstick) 121 mg/dL (70-99) Laboratory Tests Test 08/05/19 12:02 08/05/19 16:44 08/05/19 20:58 08/06/19 04:40 Glucose (Fingerstick) 144 mg/dL (70-99) 148 mg/dL (70-99) 135 mg/dL (70-99) White Blood Count 9.1 x10^3/uL (4.0-11.0) Red Blood Count 2.63 x10^6/uL (3.50-5.40) Hemoglobin 7.7 g/dL (12.0-15.5) Hematocrit 23.5 % (36.0-47.0) Mean Corpuscular Volume 90 fL (79-100) Mean Corpuscular Hemoglobin 29 pg (25-35) Mean Corpuscular Hemoglobin Concent 33 g/dL (31-37) Red Cell Distribution Width 16.7 % (11.5-14.5) Platelet Count 205 x10^3/uL (140-400) Sodium Level 140 mmol/L (136-145) Potassium Level 4.7 mmol/L (3.5-5.1) Chloride Level 106 mmol/L (98-107) Carbon Dioxide Level 19 mmol/L (21-32) Anion Gap 15 (6-14) Blood Urea Nitrogen 74 mg/dL (7-20) Creatinine 4.6 mg/dL (0.6-1.0) Estimated GFR (Cockcroft-Gault) 9.9 Glucose Level 121 mg/dL (70-99) Calcium Level 8.7 mg/dL (8.5-10.1) Phosphorus Level 6.0 mg/dL (2.6-4.7) Iron Level 52 ug/dL (50-170) Total Iron Binding Capacity 229 ug/dL (250-450) Iron Saturation 23 % (15-34) Test 08/06/19 07:18 Glucose (Fingerstick) 121 mg/dL (70-99) Microbiology 08/03/19 Urine Culture - Final, Complete 08/03/19 Urine Culture Result 1 (DAKOTA) - Final, Complete Medications Current Medications Furosemide (Lasix) 20 mg 1X ONCE IVP ; Start 08/03/19 at 15:45; Stop 08/03/19 at 15:46; Status Cancel Furosemide (Lasix) 40 mg 1X ONCE IVP Last administered on 08/03/19at 16:02; Start 08/03/19 at 16:00; Stop 08/03/19 at 16:01; Status DC Hydralazine HCl (Apresoline Inj) 10 mg 1X ONCE IVP Last administered on 08/02at 17:31; Start 08/03/19 at 17:30; Stop 08/03/19 at 17:31; Status DC Atorvastatin Calcium (Lipitor) 40 mg QHS PO Last administered on 08/05/19at 20:55; Start 08/03/19 at 22:00 Metolazone (Zaroxolyn) 2.5 mg [id number] PO Last administered on 08/06/19at 08:59; Start 08/04/19 at 09:00 Isosorbide Mononitrate (Imdur) 60 mg DAILY PO Last administered on 08/06/19at 09:00; Start 08/04/19 at 09:00 Hydralazine HCl (Apresoline Inj) 10 mg PRN Q4HRS PRN IVP ELEVATED BP, SEE COMMENTS Last administered on 08/05/19at 20:04; Start 08/03/19 at 21:15 Bumetanide (Bumex) 1 mg [id number] IV Last administered on 08/06/19at 08:59; Start 08/03/19 at 22:00 Insulin Human Lispro (HumaLOG) 0-5 UNITS TIDWMEALS SQ ; Start 08/03/19 at 22:00 Dextrose (Dextrose 50%-Water Syringe) 12.5 gm PRN Q15MIN PRN IV SEE COMMENTS; Start 08/03/19 at 21:15 Hydralazine HCl (Apresoline) 50 mg TID PO Last administered on 08/04/19at 08:13; Start 08/04/19 at 09:00; Stop 08/04/19 at 13:21; Status DC Acetaminophen/ Hydrocodone Bitart (Lortab 5/325) 1 tab PRN Q6HRS PRN PO M ODERATE PAIN, SEVERE PAIN Last administered on 08/03/19at 23:42; Start 08/03/19 at 23:30 Zolpidem Tartrate (Ambien) 5 mg PRN QHS PRN PO INSOMNIA, MAY REPEAT X1; Start 08/03/19 at 23:30; Stop 08/06/19 at 10:14; Status DC Insulin Glargine (Lantus Syringe) 20 unit QHS SQ Last administered on 08/04/19at 21:54; Start 08/04/19 at 21:00 Labetalol HCl (Normodyne Iv Push) 20 mg 1X ONCE IVP Last administered on 08/04/19at 09:17; Start 08/04/19 at 09:15; Stop 08/04/19 at 09:16; Status DC Metoprolol Tartrate (Lopressor) 25 mg 1X ONCE PO Last administered on 08/04/19at 10:50; Start 08/04/19 at 10:45; Stop 08/04/19 at 10:46; Status DC Metoprolol Tartrate (Lopressor) 25 mg Q6HRS PO Last administered on 08/06/19at 05:50; Start 08/04/19 at 12:00 Digoxin (Lanoxin) 500 mcg 1X ONCE IV Last administered on 08/04/19at 12:03; Start 08/04/19 at 12:00; Stop 08/04/19 at 12:01; Status DC Hydralazine HCl (Apresoline) 100 mg TID PO Last administered on 08/05/19at 08:30; Start 08/04/19 at 14:00; Stop 08/05/19 at 10:04; Status DC Aspirin (Ecotrin) 81 mg [id number] PO Last administered on 08/06/19at 08:59; Start 08/04/19 at 14:00 Hydralazine HCl (Apresoline) 100 mg QID PO Last administered on 08/06/19at 09:01; Start 08/05/19 at 13:00 Amlodipine Besylate (Norvasc) 5 mg DAILY PO Last administered on 08/06/19at 09:00; Start 08/05/19 at 10:00; Stop 08/06/19 at 10:14; Status DC Ondansetron HCl (Zofran) 4 mg PRN Q6HRS PRN IVP Nausea 1ST CHOICE Last administered on 08/05/19at 22:46; Start 08/05/19 at 22:45 Amlodipine Besylate (Norvasc) 10 mg DAILY PO ; Start 08/06/19 at 10:15; Stop 08/06/19 at 10:16; Status DC Acetaminophen (Tylenol) 650 mg PRN Q6HRS PRN PO MILD PAIN / TEMP; Start 08/06/19 at 10:15 Pantoprazole Sodium (Protonix) 40 mg DAILYAC PO ; Start 08/06/19 at 10:15 Amlodipine Besylate (Norvasc) 10 mg DAILY PO ; Start 08/06/19 at 10:16 Amlodipine Besylate (Norvasc) 5 mg 1X ONCE PO ; Start 08/06/19 at 10:45; Stop 08/06/19 at 10:46 Active Scripts Active Reported Metolazone 2.5 Mg Tablet 2.5 Mg PO BID Bumetanide 1 Mg Tablet 1 Tab PO BID Xultophy 100 Unit-3.6 mg/ml (Insulin Degludec/Liraglutide) 3 Ml Insuln.pen 20 Units SQ Atorvastatin Calcium 40 Mg Tablet 1 Tab PO QHS Isosorbide Mononitrate Er (Isosorbide Mononitrate) 60 Mg Tab.er.24h 1 Tab PO DAILY Hydralazine Hcl 50 Mg Tablet 1 Tab PO TID Novolog Flexpen (Insulin Aspart) 100 Unit/1 Ml Insuln.pen 10 Unit SQ TIDAC Vitals/I & O Vital Sign - Last 24 Hours 08/05/19 08/05/19 08/05/19 08/05/19 11:00 11:03 11:06 12:24 Temp 97.7 97.7 Pulse 59 58 58 58 Resp 20 B/P (MAP) 214/95 (134) 206/92 214/95 233/105 Pulse Ox 93 O2 Delivery Room Air 08/05/19 08/05/19 08/05/19 08/05/19 12:25 15:00 17:13 17:14 Temp 98.2 98.2 Pulse 58 56 56 56 Resp 20 B/P (MAP) 233/105 193/86 (121) 193/86 193/86 Pulse Ox 95 O2 Delivery Room Air 08/05/19 08/05/19 08/05/19 08/05/19 19:45 20:04 20:11 20:58 Temp 97.7 97.7 Pulse 59 59 59 Resp 24 B/P (MAP) 206/84 (124) 206/84 187/83 Pulse Ox 94 O2 Delivery Room Air Room Air O2 Flow Rate 2.0 08/05/19 08/05/19 08/06/19 08/06/19 23:05 23:44 03:55 05:50 Temp 98.0 97.8 98.0 97.8 Pulse 59 59 59 59 Resp 22 22 B/P (MAP) 174/73 (106) 174/73 184/82 (116) 184/82 Pulse Ox 91 95 O2 Delivery Room Air Room Air 08/06/19 08/06/19 08/06/19 08/06/19 07:14 08:00 09:00 09:00 Temp 97.6 97.6 Pulse 55 Resp 22 B/P (MAP) 190/91 (124) 190/91 190/91 Pulse Ox 92 O2 Delivery Room Air Room Air 08/06/19 09:01 B/P (MAP) 190/91 Intake and Output 08/05/19 08/05/19 08/06/19 15:00 23:00 07:00 Intake Total 550 ml 650 ml 310 ml Balance 550 ml 650 ml 310 ml FATOU LOPEZ MD Aug 06, 2019 10:50
--- NOTE | 2019-08-06 12:32 | PDOC ---
Renal-Progress Notes Subjective Notes Notes NO NEW COMPLAINTS, UPSET THAT I HAD CHECKED WITH HER PHARMACY AND CONFIRMED THAT SHE HAS BEEN NOT COMPLIANT WITH HER MEDS History of Present Illness Hx of present illness RENAL FXN IS WORSE Vitals Vitals Vital Signs Date Time Temp Pulse Resp B/P (MAP) Pulse Ox O2 Delivery O2 Flow Rate FiO2 08/06/19 09:01 190/91 08/06/19 08:00 Room Air 08/06/19 07:14 97.6 55 22 92 97.6 08/05/19 20:11 2.0 Weight Weight [ ] I.O. Intake and Output Intake and Output 08/06/19 07:00 Intake Total 1510 ml Balance 1510 ml Intake Oral 1510 ml # Voids 5 Labs Labs Laboratory Tests Test 08/05/19 16:44 08/05/19 20:58 08/06/19 04:40 08/06/19 07:18 Glucose (Fingerstick) 148 mg/dL (70-99) 135 mg/dL (70-99) 121 mg/dL (70-99) White Blood Count 9.1 x10^3/uL (4.0-11.0) Red Blood Count 2.63 x10^6/uL (3.50-5.40) Hemoglobin 7.7 g/dL (12.0-15.5) Hematocrit 23.5 % (36.0-47.0) Mean Corpuscular Volume 90 fL (79-100) Mean Corpuscular Hemoglobin 29 pg (25-35) Mean Corpuscular Hemoglobin Concent 33 g/dL (31-37) Red Cell Distribution Width 16.7 % (11.5-14.5) Platelet Count 205 x10^3/uL (140-400) Sodium Level 140 mmol/L (136-145) Potassium Level 4.7 mmol/L (3.5-5.1) Chloride Level 106 mmol/L (98-107) Carbon Dioxide Level 19 mmol/L (21-32) Anion Gap 15 (6-14) Blood Urea Nitrogen 74 mg/dL (7-20) Creatinine 4.6 mg/dL (0.6-1.0) Estimated GFR (Cockcroft-Gault) 9.9 Glucose Level 121 mg/dL (70-99) Calcium Level 8.7 mg/dL (8.5-10.1) Phosphorus Level 6.0 mg/dL (2.6-4.7) Iron Level 52 ug/dL (50-170) Total Iron Binding Capacity 229 ug/dL (250-450) Iron Saturation 23 % (15-34) Test 08/06/19 12:24 Glucose (Fingerstick) 153 mg/dL (70-99) Micro Micro Microbiology 08/03/19 Urine Culture - Final, Complete 08/03/19 Urine Culture Result 1 (DAKOTA) - Final, Complete Review of Systems Constitutional: yes: alert, oriented Ears/Nose/Throat: Yes: no symptom reported Eyes: Yes: no symptom reported Pulmonary: Yes no symptom reported Cardiovascular: Yes no symptom reported Gastrointestional: Yes: no symptom reported Musculoskeletal: Yes: no symptom reported Skin: Yes no symptom reported Endocrine: Yes: no symptom reported Physical Exam General Appearance: no apparent distress Respiratory: bilateral CTA Heart: S1S2 Abdomen: soft, bowel sounds present Genitourinary: bladder flat Extremities: pulses present Neurology: alert, oriented Assessment Assessment IMP NEW ESRD-NO UREMIA BUT UNABLE TO CONTROL EDEMA, BP AND ANEMIA MET ACIDOSIS ANEMIA HTN DM II NON COMPLIANCE PLAN WILL START HD TOMORROW WILL ASK IR TO PLACE TDC EVENTUALLY DO PD ADEQUATE IRON STORES GABRIEL WHEN BP IS BETTER CONTROLLED CHECK PO4 ADD NAHCO3 START PO4 BINDERS ENC COMPLIANCE AGREE WITH NORVASC WILL FOLLOW CECI PICHARDO MD Aug 06, 2019 12:32
[2019-08-06] MEDS: PANTOPRAZOLE 40 MG TABLET.DR. PO SCH (12:34)
[2019-08-06] MEDS: hydrALAZINE 20 MG/ML VIAL. IVP PRN (12:37)
[2019-08-06] MEDS: SODIUM BICARBONATE 650 MG TABLET. PO SCH ×2 (14:26→21:47)
[2019-08-06] MEDS: SEVELAMER CARBONATE 800 MG TABLET. PO SCH (17:20)
[2019-08-06] MEDS: ATORVASTATIN CALCIUM 40 MG TABLET. PO SCH (21:47)
[2019-08-06] MEDS: INSULIN GLARGINE SYRINGE. SQ SCH (21:52)
[2019-08-07] VITALS (7 sets, daily range): BP systolic 112–206; BP diastolic 53–80
[2019-08-07] MEDS: METOPROLOL TART IMMED RELEASE 25 MG TABLET. PO SCH ×4 (00:22→17:35)
[2019-08-07] MEDS: ONDANSETRON PF 4 MG/2 ML VIAL. IVP PRN (03:23)
[2019-08-07] MEDS: hydrALAZINE 20 MG/ML VIAL. IVP PRN (03:46)
[2019-08-07 05:14] LABS: BASO % 1 % (0-3); EOS # 0.3 x10^3/uL (0.0-0.7); EOS % 4 % (0-3); HEMATOCRIT 23.5 % (36.0-47.0); HEMOGLOBIN 7.7 g/dL (12.0-15.5); LYMPH # 1.1 x10^3/uL (1.0-4.8); LYMPH % 11 % (24-48); MEAN CORPUSCULAR HEMOGLOBIN 29 pg (25-35); MEAN CORPUSCULAR HGB CONC 33 g/dL (31-37); MEAN CORPUSCULAR VOLUME 89 fL (79-100); MONO # 0.7 x10^3/uL (0.0-1.1); MONO % 7 % (0-9); NEUT # 7.7 x10^3/uL (1.8-7.7); NEUT % 78 % (31-73); PLATELET COUNT 193 x10^3/uL (140-400); RED BLOOD COUNT 2.63 x10^6/uL (3.50-5.40); RED CELL DISTRIBUTION WIDTH 16.7 % (11.5-14.5); WHITE BLOOD COUNT 9.9 x10^3/uL (4.0-11.0)
[2019-08-07 05:46] LABS: ALBUMIN 3.1 g/dL (3.4-5.0); ALBUMIN/GLOBULIN RATIO 0.9 (1.0-1.7); CALCIUM 8.6 mg/dL (8.5-10.1); POTASSIUM 4.2 mmol/L (3.5-5.1); TOTAL BILIRUBIN 0.8 mg/dL (0.2-1.0); TOTAL PROTEIN 6.6 g/dL (6.4-8.2)
[2019-08-07] MEDS: PANTOPRAZOLE 40 MG TABLET.DR. PO SCH (07:30)
[2019-08-07] MEDS: INSULIN LISPRO 300 UNITS/3 ML VIAL. SQ SCH ×3 (08:00→17:00)
[2019-08-07] MEDS: SEVELAMER CARBONATE 800 MG TABLET. PO SCH ×3 (08:00→17:34)
[2019-08-07] MEDS: ASPIRIN ENTERIC COATED 81 MG TABLET.DR. PO SCH (08:00)
[2019-08-07] MEDS: SODIUM BICARBONATE 650 MG TABLET. PO SCH ×3 (09:00→20:33)
[2019-08-07] MEDS: amLODIPine BESYLATE 10 MG TABLET PO SCH (09:00)
[2019-08-07] MEDS: ISOSORBIDE MONONITRATE ER 30 MG TAB.ER.24H PO SCH (09:00)
[2019-08-07] MEDS: metOLazone 2.5 MG TABLET PO SCH ×2 (09:00→17:35)
[2019-08-07] MEDS: BUMETANIDE 1 MG/4 ML VIAL. IV SCH ×2 (09:00→17:36)
--- NOTE | 2019-08-07 10:11 | PDOC ---
PROGRESS NOTES Subjective Subjective NO NEW PROBLEMS Objective Objective Vital Signs Date Time Temp Pulse Resp B/P (MAP) Pulse Ox O2 Delivery O2 Flow Rate FiO2 08/07/19 07:00 97.6 55 18 163/57 (92) 95 Room Air 97.6 08/06/19 20:00 2.0 Intake and Output 08/07/19 07:00 Intake Total 1060 ml Balance 1060 ml Intake Oral 1060 ml # Voids 1 Physical Exam Abdomen: Normal bowel sounds Heart: Regular rate Extremities: No cyanosis, Other (1+ bilateral LE pittjing edema, down) General: mild distress HEENT: Atraumatic, Mucous membr. moist/pink Lungs: Other (Mildly decreased breath sounds) MUSCULOSKELETAL: Osteoarthritic changes both hands Neuro: Normal speech, Sensation intact Psych/Mental Status: Mental status NL, Other (anxious worried about her health) Skin: No breakdown, No significant lesion Diagnosis Problem List Problems Medical Problems: (1) Acute exacerbation of CHF (congestive heart failure) Status: Acute (2) Anemia Status: Acute (3) HTN (hypertension) Status: Acute Assessment Assessment 1. Severe anemia secondary to chronic kidney disease. 2. Chronic kidney disease, stage 5. Creatinine around 5. 3. Diastolic heart failure, 50-60% ejection fraction. 4. Nephrotic syndrome. 5. Insulin-dependent diabetes. 6. Hypertension, accelerated/malignant. 7. Hyperlipidemia. PLAN: Temp dialysis catheter placement today. spoke with renal today.start on dialysis after that. labs cr 5.0,pot 4.0 Hb7.6 s/p 2 u prbc transfusion. At this time, was admitted to the hospital, IV Bumex. Continue Zaroxolyn p.o. Nephrology is consulted. Monitor electrolytes and magnesium. Cardiology is consulted. Hypertensive crisis -Blood pressure is still very high. Systolic blood pressure is 191. Hydralazine 100 mg p.o. 4 times a day. Increase amlodipine to 10 mg daily. Echocardiogram The left ventricle is normal size. The left ventricular systolic function is normal and the ejection fraction is within normal range. The Ejection Fraction is 50-55%. There is mild concentric left ventricular hypertrophy. Doppler and Color Flow revealed trace aortic regurgitation. There is no significant aortic valvular stenosis. Doppler and Color-flow revealed trace mitral regurgitation. Doppler and Color Flow revealed trace to mild tricuspid regurgitation with an estimated PAP of 51 mm Hg. Anemia status post blood transfusion hemoglobin is 7.9 Chronic kidney disease stage V -creatinine is 4.[address] Soto has recommended hemodialysis from tomorrow but patient is reluctant. She is thinking about it. Condition, treatment and options discussed with the patient. Plan Plan of Care Problems Medical Problems: (1) Acute exacerbation of CHF (congestive heart failure) Status: Acute (2) Anemia Status: Acute (3) HTN (hypertension) Status: Acute Comment Review of Relevant I have reviewed the following items allen (where applicable) has been applied. Labs Laboratory Tests Test 08/06/19 12:24 08/06/19 16:48 08/06/19 20:52 08/07/19 04:10 Glucose (Fingerstick) 153 mg/dL (70-99) 145 mg/dL (70-99) 175 mg/dL (70-99) White Blood Count 9.9 x10^3/uL (4.0-11.0) Red Blood Count 2.63 x10^6/uL (3.50-5.40) Hemoglobin 7.7 g/dL (12.0-15.5) Hematocrit 23.5 % (36.0-47.0) Mean Corpuscular Volume 89 fL (79-100) Mean Corpuscular Hemoglobin 29 pg (25-35) Mean Corpuscular Hemoglobin Concent 33 g/dL (31-37) Red Cell Distribution Width 16.7 % (11.5-14.5) Platelet Count 193 x10^3/uL (140-400) Neutrophils (%) (Auto) 78 % (31-73) Lymphocytes (%) (Auto) 11 % (24-48) Monocytes (%) (Auto) 7 % (0-9) Eosinophils (%) (Auto) 4 % (0-3) Basophils (%) (Auto) 1 % (0-3) Neutrophils # (Auto) 7.7 x10^3/uL (1.8-7.7) Lymphocytes # (Auto) 1.1 x10^3/uL (1.0-4.8) Monocytes # (Auto) 0.7 x10^3/uL (0.0-1.1) Eosinophils # (Auto) 0.3 x10^3/uL (0.0-0.7) Basophils # (Auto) 0.0 x10^3/uL (0.0-0.2) Sodium Level 138 mmol/L (136-145) Potassium Level 4.2 mmol/L (3.5-5.1) Chloride Level 105 mmol/L (98-107) Carbon Dioxide Level 22 mmol/L (21-32) Anion Gap 11 (6-14) Blood Urea Nitrogen 78 mg/dL (7-20) Creatinine 5.0 mg/dL (0.6-1.0) Estimated GFR (Cockcroft-Gault) 9.0 BUN/Creatinine Ratio 16 (6-20) Glucose Level 108 mg/dL (70-99) Calcium Level 8.6 mg/dL (8.5-10.1) Total Bilirubin 0.8 mg/dL (0.2-1.0) Aspartate Amino Transf (AST/SGOT) 10 U/L (15-37) Alanine Aminotransferase (ALT/SGPT) 14 U/L (14-59) Alkaline Phosphatase 104 U/L (46-116) Total Protein 6.6 g/dL (6.4-8.2) Albumin 3.1 g/dL (3.4-5.0) Albumin/Globulin Ratio 0.9 (1.0-1.7) Test 08/07/19 07:02 Glucose (Fingerstick) 116 mg/dL (70-99) Microbiology 08/03/19 Urine Culture - Final, Complete 08/03/19 Urine Culture Result 1 (DAKOTA) - Final, Complete Medications Current Medications Acetaminophen (Tylenol) 650 mg PRN Q6HRS PRN PO MILD PAIN / TEMP; Start 08/06/19 at 10:15 Amlodipine Besylate (Norvasc) 5 mg 1X ONCE PO Last administered on 08/06/19at 12:34; Start 08/06/19 at 10:45; Stop 08/06/19 at 10:46; Status DC Amlodipine Besylate (Norvasc) 10 mg DAILY PO ; Start 08/06/19 at 10:15; Stop 08/06/19 at 10:16; Status DC Amlodipine Besylate (Norvasc) 10 mg DAILY PO ; Start 08/06/19 at 10:16 Pantoprazole Sodium (Protonix) 40 mg DAILYAC PO Last administered on 08/06/19at 12:34; Start 08/06/19 at 10:15 Sevelamer Carbonate (Renvela) 800 mg TIDWMEALS PO Last administered on 08/06/19at 17:20; Start 08/06/19 at 17:00 Sodium Bicarbonate (Sodium Bicarbonate) 650 mg TID PO Last administered on 08/06/19at 21:47; Start 08/06/19 at 14:00 Vitals/I & O Vital Sign - Last 24 Hours 08/06/19 08/06/19 08/06/19 08/06/19 11:00 12:34 12:35 12:37 Temp 98.3 98.3 Pulse 52 Resp 20 B/P (MAP) 217/99 (138) 217/99 217/99 217/99 Pulse Ox 93 O2 Delivery Room Air 08/06/19 08/06/19 08/06/19 08/06/19 14:27 15:00 17:20 17:21 B/P (MAP) 154/68 154/68 (96) 185/89 (121) 185/89 08/06/19 08/06/19 08/06/19 08/06/19 18:00 19:50 20:00 21:47 Temp 98.2 98.2 Pulse 52 59 59 Resp 20 B/P (MAP) 181/77 (111) 181/77 Pulse Ox 93 O2 Delivery Room Air Room Air O2 Flow Rate 2.0 08/06/19 08/07/19 08/07/19 08/07/19 23:20 00:22 02:35 03:46 Temp 97.8 97.7 97.8 97.7 Pulse 59 55 Resp 18 18 B/P (MAP) 137/85 (102) 137/85 180/80 (113) 180/80 Pulse Ox 94 92 O2 Delivery Room Air Room Air 08/07/19 07:00 Temp 97.6 97.6 Pulse 55 Resp 18 B/P (MAP) 163/57 (92) Pulse Ox 95 O2 Delivery Room Air Intake and Output 08/06/19 08/06/19 08/07/19 15:00 23:00 07:00 Intake Total 360 ml 300 ml 400 ml Balance 360 ml 300 ml 400 ml YARELIS FONTENOT MD Aug 07, 2019 10:11
--- NOTE | 2019-08-07 10:51 | PDOC ---
Renal-Progress Notes Subjective Notes Notes NO NEW COMPLAINTS History of Present Illness Hx of present illness STABLE Vitals Vitals Vital Signs Date Time Temp Pulse Resp B/P (MAP) Pulse Ox O2 Delivery O2 Flow Rate FiO2 08/07/19 10:33 97.9 50 18 166/53 (90) 92 Room Air 97.9 08/06/19 20:00 2.0 Weight Weight [ ] I.O. Intake and Output Intake and Output 08/07/19 07:00 Intake Total 1060 ml Balance 1060 ml Intake Oral 1060 ml # Voids 1 Labs Labs Laboratory Tests Test 08/06/19 12:24 08/06/19 16:48 08/06/19 20:52 08/07/19 04:10 Glucose (Fingerstick) 153 mg/dL (70-99) 145 mg/dL (70-99) 175 mg/dL (70-99) White Blood Count 9.9 x10^3/uL (4.0-11.0) Red Blood Count 2.63 x10^6/uL (3.50-5.40) Hemoglobin 7.7 g/dL (12.0-15.5) Hematocrit 23.5 % (36.0-47.0) Mean Corpuscular Volume 89 fL (79-100) Mean Corpuscular Hemoglobin 29 pg (25-35) Mean Corpuscular Hemoglobin Concent 33 g/dL (31-37) Red Cell Distribution Width 16.7 % (11.5-14.5) Platelet Count 193 x10^3/uL (140-400) Neutrophils (%) (Auto) 78 % (31-73) Lymphocytes (%) (Auto) 11 % (24-48) Monocytes (%) (Auto) 7 % (0-9) Eosinophils (%) (Auto) 4 % (0-3) Basophils (%) (Auto) 1 % (0-3) Neutrophils # (Auto) 7.7 x10^3/uL (1.8-7.7) Lymphocytes # (Auto) 1.1 x10^3/uL (1.0-4.8) Monocytes # (Auto) 0.7 x10^3/uL (0.0-1.1) Eosinophils # (Auto) 0.3 x10^3/uL (0.0-0.7) Basophils # (Auto) 0.0 x10^3/uL (0.0-0.2) Sodium Level 138 mmol/L (136-145) Potassium Level 4.2 mmol/L (3.5-5.1) Chloride Level 105 mmol/L (98-107) Carbon Dioxide Level 22 mmol/L (21-32) Anion Gap 11 (6-14) Blood Urea Nitrogen 78 mg/dL (7-20) Creatinine 5.0 mg/dL (0.6-1.0) Estimated GFR (Cockcroft-Gault) 9.0 BUN/Creatinine Ratio 16 (6-20) Glucose Level 108 mg/dL (70-99) Calcium Level 8.6 mg/dL (8.5-10.1) Total Bilirubin 0.8 mg/dL (0.2-1.0) Aspartate Amino Transf (AST/SGOT) 10 U/L (15-37) Alanine Aminotransferase (ALT/SGPT) 14 U/L (14-59) Alkaline Phosphatase 104 U/L (46-116) Total Protein 6.6 g/dL (6.4-8.2) Albumin 3.1 g/dL (3.4-5.0) Albumin/Globulin Ratio 0.9 (1.0-1.7) Test 08/07/19 07:02 Glucose (Fingerstick) 116 mg/dL (70-99) Micro Micro Microbiology 08/03/19 Urine Culture - Final, Complete 08/03/19 Urine Culture Result 1 (DAKOTA) - Final, Complete Review of Systems Constitutional: yes: alert, oriented Ears/Nose/Throat: Yes: no symptom reported Eyes: Yes: no symptom reported Pulmonary: Yes no symptom reported Cardiovascular: Yes no symptom reported Gastrointestional: Yes: no symptom reported Musculoskeletal: Yes: no symptom reported Skin: Yes no symptom reported Endocrine: Yes: no symptom reported Physical Exam General Appearance: no apparent distress Respiratory: bilateral CTA Heart: S1S2 Abdomen: soft, bowel sounds present Genitourinary: bladder flat Extremities: pulses present Neurology: alert, oriented Assessment Assessment IMP NEW ESRD-NO UREMIA BUT UNABLE TO CONTROL EDEMA, BP AND ANEMIA MET ACIDOSIS ANEMIA HTN DM II NON COMPLIANCE PLAN TDC TODAY EVENTUALLY DO PD GABRIEL WHEN BP IS BETTER CONTROLLED CONT NAHCO3 STARTED PO4 BINDERS ENC COMPLIANCE HTN PARTLY VOLUME DEPENDENT HD TODAY UF ABOUT 1.5 LITERS TODAY CECI PICHARDO MD Aug 07, 2019 10:51
[2019-08-07] MEDS ORDERED: LIDOCAINE 1%/EPI 1:100,000 20 ML VIAL. ONE (11:38)
[2019-08-07] MEDS ORDERED: MIDAZOLAM HCL/PF 2 MG/2 ML VIAL. ONE (11:53)
[2019-08-07] MEDS ORDERED: VANCOMYCIN 1GM IVPB FOR OMNI 250 ML ONE (11:53)
[2019-08-07] MEDS ORDERED: fentaNYL PF VIAL 100 MCG/2 ML VIAL ONE (11:55)
[2019-08-07] MEDS ORDERED: LIDOCAINE 1%/EPI 1:100,000 20 ML VIAL. INJ ONE (12:15)
[2019-08-07] MEDS ORDERED: MIDAZOLAM HCL/PF 2 MG/2 ML VIAL. IV ONE (12:15)
[2019-08-07] MEDS ORDERED: fentaNYL PF VIAL 100 MCG/2 ML VIAL IV ONE (12:15)
[2019-08-07] MEDS ORDERED: ACETAMINOPHEN 500 MG TABLET PO PRN (12:15)
[2019-08-07] MEDS ORDERED: ALBUMIN HUMAN 25% 200 ML IV PRN (12:15)
[2019-08-07] MEDS ORDERED: diphenhydrAMINE 50 MG/ML VIAL IV PRN ×2 (12:15)
[2019-08-07] MEDS ORDERED: VANCOMYCIN 1GM IVPB FOR OMNI 250 ML IV ONE (12:15)
[2019-08-07] MEDS ORDERED: DIALYSIS PATIENT. MC PRN (12:15)
[2019-08-07] MEDS ORDERED: IV NORMAL SALINE 1000ML BAG 1,000 ML IV PRN ×2 (12:15)
--- NOTE | 2019-08-07 12:39 | PDOC ---
Exam Case Management Associate Case Management Associate Misael Feeder Switchboard Operator Feeder Switchboard Operator None Pre-Procedure Diagnosis Pre-Procedure Diagnosis Renal failure Post-Procedure Diagnosis Post-Procedure Diagnosis Same Procedure Performed Procedure Performed RIJ tunneled HD catheter placement Type of Anesthesia Type of Anesthesia Moderate, local Estimated Blood Loss EBL: 10 cc Specimens Specimans None Drain/Tubes Drains/Tubes 23cm HD catheter Condition of Patient Condition of Patient Stable COCO SHARP MD Aug 07, 2019 12:39
--- NOTE | 2019-08-07 13:26 | PDOC ---
PROGRESS NOTES Subjective Subjective No new complaints Objective Objective Vital Signs Date Time Temp Pulse Resp B/P (MAP) Pulse Ox O2 Delivery O2 Flow Rate FiO2 08/07/19 12:34 54 14 97 Nasal Cannula 2.0 08/07/19 10:33 97.9 166/53 (90) 97.9 Intake and Output 08/07/19 07:00 Intake Total 1060 ml Balance 1060 ml Intake Oral 1060 ml # Voids 1 Physical Exam Abdomen: Normal bowel sounds Heart: Regular rate Extremities: No cyanosis, Other (1+ bilateral LE pittjing edema, down) General: mild distress HEENT: Atraumatic Lungs: Other (Mildly decreased breath sounds) Neuro: Normal speech Psych/Mental Status: Mental status NL, Other (anxious worried about her health) Skin: No breakdown, No significant lesion Assessment Assessment 1. KATJA on CKD4-5: Tunneled cath placement today - Nephrology following 2. Malignant HTN: Still elevated. Change BB to labetalol 3. PAFIB with RVR: Maintaining SR 4. Acute on chronic diastolic CHF: improved. ECHO with normal LV systolic function, mild LVH and moderately elevated PAP at 51 mmHg. Plan MPI to rule out ischemia 5. Anemia of chronic disease: Improved. 6. DM2: Per IM 7. HLP: 8. Morbid obesity 9. LE PAD: no claudications or wounds. Plan Plan of Care Problems Medical Problems: (1) Acute exacerbation of CHF (congestive heart failure) Status: Acute (2) Anemia Status: Acute (3) HTN (hypertension) Status: Acute Comment Review of Relevant I have reviewed the following items allen (where applicable) has been applied. Labs Laboratory Tests Test 08/06/19 16:48 08/06/19 20:52 08/07/19 04:10 08/07/19 07:02 Glucose (Fingerstick) 145 mg/dL (70-99) 175 mg/dL (70-99) 116 mg/dL (70-99) White Blood Count 9.9 x10^3/uL (4.0-11.0) Red Blood Count 2.63 x10^6/uL (3.50-5.40) Hemoglobin 7.7 g/dL (12.0-15.5) Hematocrit 23.5 % (36.0-47.0) Mean Corpuscular Volume 89 fL (79-100) Mean Corpuscular Hemoglobin 29 pg (25-35) Mean Corpuscular Hemoglobin Concent 33 g/dL (31-37) Red Cell Distribution Width 16.7 % (11.5-14.5) Platelet Count 193 x10^3/uL (140-400) Neutrophils (%) (Auto) 78 % (31-73) Lymphocytes (%) (Auto) 11 % (24-48) Monocytes (%) (Auto) 7 % (0-9) Eosinophils (%) (Auto) 4 % (0-3) Basophils (%) (Auto) 1 % (0-3) Neutrophils # (Auto) 7.7 x10^3/uL (1.8-7.7) Lymphocytes # (Auto) 1.1 x10^3/uL (1.0-4.8) Monocytes # (Auto) 0.7 x10^3/uL (0.0-1.1) Eosinophils # (Auto) 0.3 x10^3/uL (0.0-0.7) Basophils # (Auto) 0.0 x10^3/uL (0.0-0.2) Sodium Level 138 mmol/L (136-145) Potassium Level 4.2 mmol/L (3.5-5.1) Chloride Level 105 mmol/L (98-107) Carbon Dioxide Level 22 mmol/L (21-32) Anion Gap 11 (6-14) Blood Urea Nitrogen 78 mg/dL (7-20) Creatinine 5.0 mg/dL (0.6-1.0) Estimated GFR (Cockcroft-Gault) 9.0 BUN/Creatinine Ratio 16 (6-20) Glucose Level 108 mg/dL (70-99) Calcium Level 8.6 mg/dL (8.5-10.1) Total Bilirubin 0.8 mg/dL (0.2-1.0) Aspartate Amino Transf (AST/SGOT) 10 U/L (15-37) Alanine Aminotransferase (ALT/SGPT) 14 U/L (14-59) Alkaline Phosphatase 104 U/L (46-116) Total Protein 6.6 g/dL (6.4-8.2) Albumin 3.1 g/dL (3.4-5.0) Albumin/Globulin Ratio 0.9 (1.0-1.7) Hepatitis B Surface Antigen Nonreactive (Nonreactive) Hepatitis B Core Total Antibody Nonreactive (Nonreactive) Test 08/07/19 11:24 Glucose (Fingerstick) 115 mg/dL (70-99) Microbiology 08/03/19 Urine Culture - Final, Complete 08/03/19 Urine Culture Result 1 (DAKOTA) - Final, Complete Medications Current Medications Acetaminophen (Tylenol) 500 mg 1X PRN PRN PO MILD PAIN / TEMP; Start 08/07/19 at 12:15; Stop 08/08/19 at 12:14 Albumin Human 200 ml @ 200 mls/hr 1X PRN PRN IV Hypotension; Start 08/07/19 at 12:15; Stop 08/07/19 at 18:14 Diphenhydramine HCl (Benadryl) 25 mg 1X PRN PRN IV ITCHING; Start 08/07/19 at 12:15; Stop 08/08/19 at 12:14 Diphenhydramine HCl (Benadryl) 25 mg 1X PRN PRN IV ITCHING; Start 08/07/19 at 12:15; Stop 08/08/19 at 12:14 Fentanyl Citrate (Fentanyl 2ml Vial) 100 mcg 1X ONCE IV Last administered on 08/07/19at 12:24; Start 08/07/19 at 12:15; Stop 08/07/19 at 12:19; Status DC Fentanyl Citrate (Fentanyl 2ml Vial) 100 mcg STK-MED ONCE .ROUTE ; Start 08/07/19 at 11:55; Stop 08/07/19 at 11:55; Status DC Info (PHARMACY MONITORING -- do not chart) 1 each PRN DAILY PRN MC SEE COMMENTS; Start 08/07/19 at 12:15 Lidocaine/ Epinephrine (LIDOCAINE 1%-EPI 1:100,000 Multi-Dose) 20 ml 1X ONCE INJ Last administered on 08/07/19at 12:24; Start 08/07/19 at 12:15; Stop 08/07/19 at 12:19; Status DC Lidocaine/ Epinephrine (LIDOCAINE 1%-EPI 1:100,000 Multi-Dose) 20 ml STK-MED ONCE .ROUTE ; Start 08/07/19 at 11:38; Stop 08/07/19 at 11:39; Status DC Midazolam HCl (Versed) 2 mg 1X ONCE IV Last administered on 08/07/19at 12:24; Start 08/07/19 at 12:15; Stop 08/07/19 at 12:19; Status DC Midazolam HCl (Versed) 2 mg STK-MED ONCE .ROUTE ; Start 08/07/19 at 11:53; Stop 08/07/19 at 11:54; Status DC Sevelamer Carbonate (Renvela) 800 mg TIDWMEALS PO Last administered on 08/06/19at 17:20; Start 08/06/19 at 17:00 Sodium Bicarbonate (Sodium Bicarbonate) 650 mg TID PO Last administered on 08/06/19at 21:47; Start 08/06/19 at 14:00 Sodium Chloride 1,000 ml @ 400 mls/hr Q2H30M PRN IV PATENCY; Start 08/07/19 at 12:15; Stop 08/08/19 at 00:14 Sodium Chloride 1,000 ml @ 1,000 mls/hr Q1H PRN IV hypotension; Start 08/07/19 at 12:15; Stop 08/07/19 at 18:14 Vancomycin HCl 250 ml @ 250 mls/hr 1X ONCE IV Last administered on 08/07/19at 12:02; Start 08/07/19 at 12:15; Stop 08/07/19 at 13:14; Status DC Vancomycin HCl 250 ml @ As Directed STK-MED ONCE .ROUTE ; Start 08/07/19 at 11:53; Stop 08/07/19 at 11:54; Status DC Vitals/I & O Vital Sign - Last 24 Hours 08/06/19 08/06/19 08/06/19 08/06/19 14:27 15:00 17:20 17:21 B/P (MAP) 154/68 154/68 (96) 185/89 (121) 185/89 08/06/19 08/06/19 08/06/19 08/06/19 18:00 19:50 20:00 21:47 Temp 98.2 98.2 Pulse 52 59 59 Resp 20 B/P (MAP) 181/77 (111) 181/77 Pulse Ox 93 O2 Delivery Room Air Room Air O2 Flow Rate 2.0 08/06/19 08/07/19 08/07/19 08/07/19 23:20 00:22 02:35 03:46 Temp 97.8 97.7 97.8 97.7 Pulse 59 55 Resp 18 18 B/P (MAP) 137/85 (102) 137/85 180/80 (113) 180/80 Pulse Ox 94 92 O2 Delivery Room Air Room Air 08/07/19 08/07/19 08/07/19 08/07/19 07:00 08:00 10:33 12:24 Temp 97.6 97.9 97.6 97.9 Pulse 55 50 Resp 18 18 14 B/P (MAP) 163/57 (92) 166/53 (90) Pulse Ox 95 92 96 O2 Delivery Room Air Room Air Room Air Nasal Cannula O2 Flow Rate 2.0 08/07/19 12:34 Pulse 54 Resp 14 Pulse Ox 97 O2 Delivery Nasal Cannula O2 Flow Rate 2.0 Intake and Output 08/06/19 08/06/19 08/07/19 15:00 23:00 07:00 Intake Total 360 ml 300 ml 400 ml Balance 360 ml 300 ml 400 ml EUNICE NOLAN MD Aug 07, 2019 13:26
--- NOTE | 2019-08-07 15:45 | RAD ---
PROCEDURE: ULTRASOUND AND FLUOROSCOPIC GUIDED RIGHT INTERNAL JUGULAR TUNNELED HEMODIALYSIS CATHETER PLACEMENT Fluoroscopy time: 1.4 minutes Exposures: 3 The procedure, risks, and complications, to include pneumothorax, air embolism, bleeding, infection, and arrhythmia, were explained at length to the patient they understood and which to proceed. Consent form signed. The right neck and chest were prepped and draped using maximal sterile technique and 1% xylocaine was used for local anesthesia. ACCESS: Ultrasound evaluation of the right neck was performed and the internal jugular vein is patent. Utilizing ultrasound guidance, a single wall puncture was made into the vein and the tract dilated. The needle tip position in the vein was documented and an image saved and sent to PACS. Next, a dermatotomy was made in the right infraclavicular region. A tunnel was then created between the dermatotomy and the venotomy. Under fluoroscopic guidance, the 23 cm tip to cuff palindrome hemodialysis catheter was advanced into the right atrium without complication. The catheter was sutured to the skin. The catheter was flushed. Spot fluoroscopic image of the chest: The tunneled central venous catheter is in a satisfactory position. Negative for pneumothorax. SEDATION: Conscious sedation for 27 minutes. Intravenous Versed and fentanyl were administered. The patient was monitored by pulse oximetry and cardiovascular monitoring equipment and observed by the nurses in attendance. COMPLICATIONS: None CONTRAST: None The patient tolerated procedure well and returned to the floor in stable condition. IMPRESSION: Successful placement of a right internal jugular 23-cm tip to cuff palindrome hemodialysis catheter with ultrasound and fluoroscopic guidance.
--- NOTE | 2019-08-07 16:00 | NUR ---
SW following. Discussed with RN, pt had HD cath placed today, and went for dialysis. Pt will need to be set up for dialysis at [facility] per RN. New HD dialysis referral will need to be sent to [facility] when everything for referral packet is available. SW will continue to follow.
[2019-08-07] MEDS: ATORVASTATIN CALCIUM 40 MG TABLET. PO SCH (20:33)
[2019-08-07] MEDS: LABETALOL HCL 200 MG TABLET PO SCH (20:33)
[2019-08-07] MEDS: INSULIN GLARGINE SYRINGE. SQ SCH (20:35)
[2019-08-08 03:15] VITALS: BP 161/58
[2019-08-08 07:00] VITALS: BP 151/56
[2019-08-08] MEDS: PANTOPRAZOLE 40 MG TABLET.DR. PO SCH (07:30)
[2019-08-08] MEDS: SEVELAMER CARBONATE 800 MG TABLET. PO SCH ×3 (08:00→17:00)
[2019-08-08] MEDS: INSULIN LISPRO 300 UNITS/3 ML VIAL. SQ SCH ×3 (08:00→17:00)
[2019-08-08] MEDS ORDERED: IV NORMAL SALINE 1000ML BAG 1,000 ML IV PRN ×2 (08:00)
[2019-08-08] MEDS: BUMETANIDE 1 MG/4 ML VIAL. IV SCH (09:00)
[2019-08-08] MEDS: SODIUM BICARBONATE 650 MG TABLET. PO SCH ×3 (09:00→19:57)
[2019-08-08] MEDS ORDERED: DIALYSIS PATIENT. MC PRN ×2 (09:15)
--- NOTE | 2019-08-08 10:04 | PDOC ---
PROGRESS NOTES Subjective Subjective in dialysis Objective Objective Vital Signs Date Time Temp Pulse Resp B/P (MAP) Pulse Ox O2 Delivery O2 Flow Rate FiO2 08/08/19 07:00 98.3 57 18 151/56 (87) 93 Nasal Cannula 2.0 98.3 Intake and Output 08/08/19 07:00 Intake Total 760 ml Balance 760 ml Intake Oral 760 ml Physical Exam Abdomen: Normal bowel sounds Heart: Regular rate Extremities: No cyanosis, Other (1+ bilateral LE pittjing edema, down) General: mild distress HEENT: Atraumatic Lungs: Other (Mildly decreased breath sounds) Neuro: Normal speech Psych/Mental Status: Mental status NL, Other (anxious worried about her health) Skin: No breakdown, No significant lesion Diagnosis Problem List Problems Medical Problems: (1) Acute exacerbation of CHF (congestive heart failure) Status: Acute (2) Anemia Status: Acute (3) HTN (hypertension) Status: Acute Assessment Assessment 1. Severe anemia secondary to chronic kidney disease. 2. Chronic kidney disease, stage 5. Creatinine around 5. 3. Ac on ch Diastolic heart failure, 50-60% ejection fraction. 4. Nephrotic syndrome. 5. Insulin-dependent diabetes. 6. Hypertension, accelerated/malignant. 7. Hyperlipidemia. PLAN: Stress test tomorrow. day #2 dialysis today. Temp dialysis catheter placement 08/07/19 . spoke with RN labs cr 5.0,pot 4.0 Hb7.6 s/p 2 u prbc transfusion. cxr improving. Plan Plan of Care Problems Medical Problems: (1) Acute exacerbation of CHF (congestive heart failure) Status: Acute (2) Anemia Status: Acute (3) HTN (hypertension) Status: Acute Comment Review of Relevant I have reviewed the following items allen (where applicable) has been applied. Labs Laboratory Tests Test 08/07/19 11:24 08/07/19 17:08 08/07/19 20:32 08/08/19 07:15 Glucose (Fingerstick) 115 mg/dL (70-99) 73 mg/dL (70-99) 138 mg/dL (70-99) 113 mg/dL (70-99) Microbiology 08/03/19 Urine Culture - Final, Complete 08/03/19 Urine Culture Result 1 (DAKOTA) - Final, Complete Medications Current Medications Acetaminophen (Tylenol) 500 mg 1X PRN PRN PO MILD PAIN / TEMP; Start 08/07/19 at 12:15; Stop 08/08/19 at 12:14 Albumin Human 200 ml @ 200 mls/hr 1X PRN PRN IV Hypotension; Start 08/07/19 at 12:15; Stop 08/07/19 at 18:14; Status DC Diphenhydramine HCl (Benadryl) 25 mg 1X PRN PRN IV ITCHING; Start 08/07/19 at 12:15; Stop 08/08/19 at 12:14 Diphenhydramine HCl (Benadryl) 25 mg 1X PRN PRN IV ITCHING; Start 08/07/19 at 12:15; Stop 08/08/19 at 12:14 Fentanyl Citrate (Fentanyl 2ml Vial) 100 mcg 1X ONCE IV Last administered on 08/07/19at 12:24; Start 08/07/19 at 12:15; Stop 08/07/19 at 12:19; Status DC Fentanyl Citrate (Fentanyl 2ml Vial) 100 mcg STK-MED ONCE .ROUTE ; Start 08/07/19 at 11:55; Stop 08/07/19 at 11:55; Status DC Info (PHARMACY MONITORING -- do not chart) 1 each PRN DAILY PRN MC SEE COMMENTS; Start 08/07/19 at 12:15; Status Cancel Info (PHARMACY MONITORING -- do not chart) 1 each PRN DAILY PRN MC SEE COMMENTS; Start 08/08/19 at 09:15 Info (PHARMACY MONITORING -- do not chart) 1 each PRN DAILY PRN MC SEE COMMENTS; Start 08/08/19 at 09:15; Status UNV Labetalol HCl (Trandate) 200 mg BID PO Last administered on 08/07/19at 20:33; Start 08/07/19 at 21:00 Lidocaine/ Epinephrine (LIDOCAINE 1%-EPI 1:100,000 Multi-Dose) 20 ml 1X ONCE INJ Last administered on 08/07/19at 12:24; Start 08/07/19 at 12:15; Stop 08/07/19 at 12:19; Status DC Lidocaine/ Epinephrine (LIDOCAINE 1%-EPI 1:100,000 Multi-Dose) 20 ml STK-MED ONCE .ROUTE ; Start 08/07/19 at 11:38; Stop 08/07/19 at 11:39; Status DC Midazolam HCl (Versed) 2 mg 1X ONCE IV Last administered on 08/07/19at 12:24; Start 08/07/19 at 12:15; Stop 08/07/19 at 12:19; Status DC Midazolam HCl (Versed) 2 mg STK-MED ONCE .ROUTE ; Start 08/07/19 at 11:53; Stop 08/07/19 at 11:54; Status DC Sodium Chloride 1,000 ml @ 400 mls/hr Q2H30M PRN IV PATENCY; Start 08/07/19 at 12:15; Stop 08/08/19 at 00:14; Status DC Sodium Chloride 1,000 ml @ 400 mls/hr Q2H30M PRN IV PATENCY; Start 08/08/19 at 08:00; Stop 08/08/19 at 19:59 Sodium Chloride 1,000 ml @ 1,000 mls/hr Q1H PRN IV hypotension; Start 08/07/19 at 12:15; Stop 08/07/19 at 18:14; Status DC Sodium Chloride 1,000 ml @ 1,000 mls/hr Q1H PRN IV hypotension; Start 08/08/19 at 08:00; Stop 08/08/19 at 13:59 Vancomycin HCl 250 ml @ 250 mls/hr 1X ONCE IV Last administered on 08/07/19at 12:02; Start 08/07/19 at 12:15; Stop 08/07/19 at 13:14; Status DC Vancomycin HCl 250 ml @ As Directed STK-MED ONCE .ROUTE ; Start 08/07/19 at 11:53; Stop 08/07/19 at 11:54; Status DC Vitals/I & O Vital Sign - Last 24 Hours 08/07/19 08/07/19 08/07/19 08/07/19 10:33 12:24 12:34 17:33 Temp 97.9 98.2 97.9 98.2 Pulse 50 54 62 Resp 18 14 14 18 B/P (MAP) 166/53 (90) 206/79 (121) Pulse Ox 92 96 97 94 O2 Delivery Room Air Nasal Cannula Nasal Cannula Room Air O2 Flow Rate 2.0 2.0 08/07/19 08/07/19 08/07/19 08/07/19 17:35 17:35 19:30 19:35 Temp 98.0 98.0 Pulse 62 62 64 Resp 20 B/P (MAP) 206/79 206/79 152/54 (86) Pulse Ox 83 95 O2 Delivery Room Air Nasal Cannula O2 Flow Rate 2.0 08/07/19 08/07/19 08/07/19 08/07/19 19:48 20:33 20:33 23:30 Temp 98.4 98.4 Pulse 64 64 62 Resp 20 B/P (MAP) 152/54 152/54 147/53 (84) Pulse Ox 94 O2 Delivery Nasal Cannula Nasal Cannula O2 Flow Rate 2.0 2.0 08/08/19 08/08/19 03:15 07:00 Temp 98.4 98.3 98.4 98.3 Pulse 61 57 Resp 18 18 B/P (MAP) 161/58 (92) 151/56 (87) Pulse Ox 95 93 O2 Delivery Nasal Cannula Nasal Cannula O2 Flow Rate 2.0 2.0 Intake and Output 08/07/19 08/07/19 08/08/19 15:00 23:00 07:00 Intake Total 360 ml 0 ml 400 ml Balance 360 ml 0 ml 400 ml YARELIS FONTENOT MD Aug 08, 2019 10:04
--- NOTE | 2019-08-08 10:52 | PDOC ---
PAUL MARTIN RESIDENTIAL FEE APPRAISER 08/08/19 1052: CARDIO Progress Notes Date and Time Date of Service 08/08/19 Time of Evaluation 1110 Subjective Subjective: No Chest Pain, No shortness of breath, No Palpitations, No Dizziness Vitals Vitals Vital Signs Date Time Temp Pulse Resp B/P (MAP) Pulse Ox O2 Delivery O2 Flow Rate FiO2 08/08/19 08:00 Nasal Cannula 2.0 08/08/19 07:00 98.3 57 18 151/56 (87) 93 98.3 Weight Weight [ ] Input and Output Intake and Output Intake and Output 08/08/19 07:00 Intake Total 760 ml Balance 760 ml Intake Oral 760 ml Laboratory Labs Laboratory Tests Test 08/07/19 11:24 08/07/19 17:08 08/07/19 20:32 08/08/19 07:15 Glucose (Fingerstick) 115 mg/dL (70-99) 73 mg/dL (70-99) 138 mg/dL (70-99) 113 mg/dL (70-99) Microbiology Micro Microbiology 08/03/19 Urine Culture - Final, Complete 08/03/19 Urine Culture Result 1 (DAKOTA) - Final, Complete Review of Systems Constitutional: yes: alert, oriented Ears/Nose/Throat: Yes: no symptom reported Eyes: Yes: no symptom reported Pulmonary: Yes no symptom reported Cardiovascular: Yes no symptom reported Gastrointestional: Yes: no symptom reported Musculoskeletal: Yes: no symptom reported Skin: Yes no symptom reported Endocrine: Yes: no symptom reported Physical Exam HEENT: Neck Supple W Full Motion Chest: Symmetric LUNGS: Clear to Auscultation Heart: S1S2, RRR Abdomen: Soft N/T Extremities: No Edema Neurology: alert, oriented, follow commands Assessment Assessment 1. KATJA on CKD4-5. Now ESRD; s/p tunneled cath placement. - Nephrology following 2. Malignant HTN; blood pressure better controlled with labetalol 3. PAFIB with RVR: Maintaining SR 4. Acute on chronic diastolic CHF: improved. ECHO with normal LV systolic function, mild LVH and moderately elevated PAP at 51 mmHg. 5. Anemia of chronic disease: hgb stable s/p transfusion 6. Diabetes, II; as per IM 7. Hyperlipidemia; statin. LDL 45 8. LE PAD: no claudications or wounds. Recommendations Continue current antiHTN therapy Fluid offloading via HD 2-day MPI to r/o ischemia. Continue ASA therapy Poor candidate currently for anticoagulation due to anemia. Supportive care EUNICE NOLAN MD 08/08/19 1438: CARDIO Progress Notes Assessment Assessment Patient seen and examined. Agree with FINISH SAW OPERATOR's assessment and plan. PAF maintaining sinus rhythm. 2 day MPI to rule out ischemia ongoing. Blood pressure better controlled with labetalol. Continue fluid removal with dialysis per nephrology team. PAUL MARTIN APRN Aug 08, 2019 10:52 EUNICE NOLAN MD Aug 08, 2019 14:38
--- NOTE | 2019-08-08 10:57 | NUR ---
SS following up with discharge planning. Pt needing new hemodialysis set up. Pt prefers [facility]. SS phoned and faxed completed referral to [facility], ; fax [phone]. Pt needing negative COVID19 test prior for dialysis. Pt's RN and physician notified. SS will continue to follow for discharge planning.
--- NOTE | 2019-08-08 11:47 | PDOC ---
Renal-Progress Notes Subjective Notes Notes NO NEW COMPLAINTS History of Present Illness Hx of present illness STABLE Vitals Vitals Vital Signs Date Time Temp Pulse Resp B/P (MAP) Pulse Ox O2 Delivery O2 Flow Rate FiO2 08/08/19 08:00 Nasal Cannula 2.0 08/08/19 07:00 98.3 57 18 151/56 (87) 93 98.3 Weight Weight [ ] I.O. Intake and Output Intake and Output 08/08/19 07:00 Intake Total 760 ml Balance 760 ml Intake Oral 760 ml Labs Labs Laboratory Tests Test 08/07/19 17:08 08/07/19 20:32 08/08/19 07:15 Glucose (Fingerstick) 73 mg/dL (70-99) 138 mg/dL (70-99) 113 mg/dL (70-99) Micro Micro Microbiology 08/03/19 Urine Culture - Final, Complete 08/03/19 Urine Culture Result 1 (DAKOTA) - Final, Complete Review of Systems Constitutional: yes: alert, oriented Ears/Nose/Throat: Yes: no symptom reported Eyes: Yes: no symptom reported Pulmonary: Yes no symptom reported Cardiovascular: Yes no symptom reported Gastrointestional: Yes: no symptom reported Musculoskeletal: Yes: no symptom reported Skin: Yes no symptom reported Endocrine: Yes: no symptom reported Physical Exam General Appearance: no apparent distress Respiratory: bilateral CTA Heart: S1S2 Abdomen: soft, bowel sounds present Genitourinary: bladder flat Extremities: pulses present Neurology: alert, oriented Assessment Assessment IMP NEW ESRD-NO UREMIA BUT UNABLE TO CONTROL EDEMA, BP AND ANEMIA MET ACIDOSIS ANEMIA HTN DM II NON COMPLIANCE PLAN HD TODAY UF TOLERATED EVENTUALLY DO PD-DOES NOT WANT PD CATHETER NOW CONT NAHCO3 STARTED PO4 BINDERS ENC COMPLIANCE HTN PARTLY VOLUME DEPENDENT ADD ARB AND STOP HYDRALAZINE CECI PICHARDO MD Aug 08, 2019 11:47
[2019-08-08 12:00] VITALS: BP 158/65
--- NOTE | 2019-08-08 13:00 | NUR ---
Dr. mejia notified that in order for outpatient dialysis to be set up they are requiring a negative covid 19 test. Orders received to obtain one, Dr. Mejia said patient does not need to be transferred to covid unit since patient is not having any symptoms. Kecia HartBronze Chaser notified.
[2019-08-08] MEDS: amLODIPine BESYLATE 10 MG TABLET PO SCH (13:32)
[2019-08-08] MEDS: metOLazone 2.5 MG TABLET PO SCH ×2 (13:33→17:32)
[2019-08-08] MEDS: LOSARTAN POTASSIUM 50 MG TABLET. PO SCH (13:33)
[2019-08-08] MEDS: LABETALOL HCL 200 MG TABLET PO SCH ×2 (13:33→19:58)
[2019-08-08] MEDS: ASPIRIN ENTERIC COATED 81 MG TABLET.DR. PO SCH (13:33)
[2019-08-08] MEDS: ISOSORBIDE MONONITRATE ER 30 MG TAB.ER.24H PO SCH (13:36)
[2019-08-08 15:00] VITALS: BP 162/59
[2019-08-08] MEDS: BUMETANIDE 1 MG TABLET. PO SCH (17:33)
[2019-08-08 19:35] VITALS: BP 128/62
[2019-08-08] MEDS: ATORVASTATIN CALCIUM 40 MG TABLET. PO SCH (19:57)
[2019-08-08] MEDS: INSULIN GLARGINE SYRINGE. SQ SCH (20:07)
[2019-08-08 22:40] VITALS: BP 126/60
[2019-08-09] VITALS (8 sets, daily range): BP systolic 138–185; BP diastolic 55–77
[2019-08-09 04:23] LABS: CALCIUM 8.5 mg/dL (8.5-10.1); CREATININE 3.2 mg/dL (0.6-1.0); POTASSIUM 3.5 mmol/L (3.5-5.1)
[2019-08-09] MEDS: SEVELAMER CARBONATE 800 MG TABLET. PO SCH ×3 (08:00→17:00)
[2019-08-09] MEDS: INSULIN LISPRO 300 UNITS/3 ML VIAL. SQ SCH ×3 (08:00→17:00)
[2019-08-09] MEDS ORDERED: IV NORMAL SALINE 1000ML BAG 1,000 ML IV PRN ×2 (08:31)
[2019-08-09] MEDS ORDERED: DIALYSIS PATIENT. MC PRN (08:45)
[2019-08-09] MEDS: LABETALOL HCL 200 MG TABLET PO SCH (09:00)
--- NOTE | 2019-08-09 09:24 | PDOC ---
PROGRESS NOTES Subjective Subjective doing well, no new problems Objective Objective Vital Signs Date Time Temp Pulse Resp B/P (MAP) Pulse Ox O2 Delivery O2 Flow Rate FiO2 08/09/19 07:00 98.0 60 20 161/67 (98) 98 Room Air 98.0 08/08/19 19:19 2.0 Intake and Output 08/09/19 07:00 Intake Total 1320 ml Balance 1320 ml Intake Oral 1320 ml # Voids 3 Physical Exam Abdomen: Normal bowel sounds Heart: Regular rate Extremities: No cyanosis, Other (1+ bilateral LE pittjing edema, down) General: mild distress HEENT: Atraumatic Lungs: Other (Mildly decreased breath sounds) Neuro: Normal speech Psych/Mental Status: Mental status NL, Other (anxious worried about her health) Skin: No breakdown, No significant lesion Diagnosis Problem List Problems Medical Problems: (1) Acute exacerbation of CHF (congestive heart failure) Status: Acute (2) Anemia Status: Acute (3) HTN (hypertension) Status: Acute Assessment Assessment 1. Severe anemia secondary to chronic kidney disease. 2. Chronic kidney disease, stage 5. Creatinine around 5. 3. Ac on ch Diastolic heart failure, 50-60% ejection fraction. 4. Nephrotic syndrome. 5. Insulin-dependent diabetes. 6. Hypertension, accelerated/malignant. 7. Hyperlipidemia. PLAN: Stress test today day #3 dialysis today. Temp dialysis catheter placement 08/07/19 . spoke with RN labs cr 3.0,pot 4.0 Hb7.6 s/p 2 u prbc transfusion. cxr improving. possible d/c today if stress test neg, Plan Plan of Care Problems Medical Problems: (1) Acute exacerbation of CHF (congestive heart failure) Status: Acute (2) Anemia Status: Acute (3) HTN (hypertension) Status: Acute Comment Review of Relevant I have reviewed the following items allen (where applicable) has been applied. Labs Laboratory Tests Test 08/08/19 12:09 08/08/19 16:51 08/08/19 19:56 08/09/19 03:15 Glucose (Fingerstick) 108 mg/dL (70-99) 161 mg/dL (70-99) 152 mg/dL (70-99) Sodium Level 139 mmol/L (136-145) Potassium Level 3.5 mmol/L (3.5-5.1) Chloride Level 102 mmol/L (98-107) Carbon Dioxide Level 31 mmol/L (21-32) Anion Gap 6 (6-14) Blood Urea Nitrogen 23 mg/dL (7-20) Creatinine 3.2 mg/dL (0.6-1.0) Estimated GFR (Cockcroft-Gault) 15.0 Glucose Level 110 mg/dL (70-99) Calcium Level 8.5 mg/dL (8.5-10.1) Test 08/09/19 07:40 Glucose (Fingerstick) 93 mg/dL (70-99) Microbiology 08/03/19 Urine Culture - Final, Complete 08/03/19 Urine Culture Result 1 (DAKOTA) - Final, Complete Medications Current Medications Bumetanide (Bumex) 2 mg BID94 PO Last administered on 08/08/19at 17:33; Start 08/08/19 at 16:00 Info (PHARMACY MONITORING -- do not chart) 1 each PRN DAILY PRN MC SEE COMMENTS; Start 08/09/19 at 08:45; Status UNV Losartan Potassium (Cozaar) 100 mg DAILY PO Last administered on 08/08/19at 13:33; Start 08/08/19 at 12:00 Sodium Chloride 1,000 ml @ 400 mls/hr Q2H30M PRN IV PATENCY; Start 08/09/19 at 08:31; Stop 08/09/19 at 20:30 Sodium Chloride 1,000 ml @ 1,000 mls/hr Q1H PRN IV hypotension; Start 08/09/19 at 08:31; Stop 08/09/19 at 14:30 Vitals/I & O Vital Sign - Last 24 Hours 08/08/19 08/08/19 08/08/19 08/08/19 12:00 13:32 13:33 13:33 Temp 98.1 98.1 Pulse 61 57 57 57 Resp 16 B/P (MAP) 158/65 (96) 182/74 182/74 182/74 Pulse Ox 91 O2 Delivery Room Air 08/08/19 08/08/19 08/08/19 08/08/19 13:36 15:00 19:19 19:35 Temp 97.9 97.9 97.9 97.9 Pulse 57 61 70 Resp 18 20 B/P (MAP) 151/56 162/59 (93) 128/62 (84) Pulse Ox 91 95 O2 Delivery Room Air Nasal Cannula Room Air O2 Flow Rate 2.0 08/08/19 08/08/19 08/09/19 08/09/19 19:58 22:40 02:55 07:00 Temp 98.1 98.1 98.0 98.1 98.1 98.0 Pulse 61 69 63 60 Resp 20 20 20 B/P (MAP) 162/59 126/60 (82) 138/63 (88) 161/67 (98) Pulse Ox 95 94 98 O2 Delivery Room Air Room Air Room Air Intake and Output 08/08/19 08/08/19 08/09/19 15:00 23:00 07:00 Intake Total 480 ml 240 ml 600 ml Balance 480 ml 240 ml 600 ml YARELIS FONTENOT MD Aug 09, 2019 09:24
--- NOTE | 2019-08-09 09:34 | PDOC ---
PAUL MARTIN MATHEMATICS ACADEMIC CHAIR 08/09/19 0934: CARDIO Progress Notes Date and Time Date of Service 08/09/19 Time of Evaluation 1015 Subjective Subjective: No Chest Pain, No shortness of breath, No Palpitations, No Dizziness Vitals Vitals Vital Signs Date Time Temp Pulse Resp B/P (MAP) Pulse Ox O2 Delivery O2 Flow Rate FiO2 08/09/19 07:00 98.0 60 20 161/67 (98) 98 Room Air 98.0 08/08/19 19:19 2.0 Weight Weight [ ] Input and Output Intake and Output Intake and Output 08/09/19 07:00 Intake Total 1320 ml Balance 1320 ml Intake Oral 1320 ml # Voids 3 Laboratory Labs Laboratory Tests Test 08/08/19 12:09 08/08/19 16:51 08/08/19 19:56 08/09/19 03:15 Glucose (Fingerstick) 108 mg/dL (70-99) 161 mg/dL (70-99) 152 mg/dL (70-99) Sodium Level 139 mmol/L (136-145) Potassium Level 3.5 mmol/L (3.5-5.1) Chloride Level 102 mmol/L (98-107) Carbon Dioxide Level 31 mmol/L (21-32) Anion Gap 6 (6-14) Blood Urea Nitrogen 23 mg/dL (7-20) Creatinine 3.2 mg/dL (0.6-1.0) Estimated GFR (Cockcroft-Gault) 15.0 Glucose Level 110 mg/dL (70-99) Calcium Level 8.5 mg/dL (8.5-10.1) Test 08/09/19 07:40 Glucose (Fingerstick) 93 mg/dL (70-99) Microbiology Micro Microbiology 08/03/19 Urine Culture - Final, Complete 08/03/19 Urine Culture Result 1 (DAKOTA) - Final, Complete Review of Systems Constitutional: yes: alert, oriented Ears/Nose/Throat: Yes: no symptom reported Eyes: Yes: no symptom reported Pulmonary: Yes no symptom reported Cardiovascular: Yes no symptom reported Gastrointestional: Yes: no symptom reported Musculoskeletal: Yes: no symptom reported Skin: Yes no symptom reported Endocrine: Yes: no symptom reported Physical Exam HEENT: Neck Supple W Full Motion Chest: Symmetric LUNGS: Clear to Auscultation Heart: S1S2, RRR Abdomen: Soft N/T Extremities: No Edema Neurology: alert, oriented, follow commands Assessment Assessment 1. KATJA on CKD4-5. Now ESRD; s/p tunneled cath placement. - Nephrology following 2. Malignant HTN; blood pressure much better controlled with labetalol 3. PAFIB with RVR: Maintaining SR 4. Acute on chronic diastolic CHF: improved. ECHO with normal LV systolic function, mild LVH and moderately elevated PAP at 51 mmHg. 5. Anemia of chronic disease: hgb stable s/p transfusion 6. Diabetes, II; as per IM 7. Hyperlipidemia; statin. LDL 45 8. LE PAD: no claudications or wounds. Recommendations Continue current antiHTN therapy Fluid offloading via HD Stress/second portion of MPI today to r/o ischemia. Continue ASA therapy Poor candidate currently for anticoagulation due to anemia. Supportive care Follow up in our office with Dr. Lopez as scheduled. FATOU LOPEZ MD 08/09/19 7463: CARDIO Progress Notes Assessment Assessment Patient seen and evaluated. KATJA on CKD4-5. Now ESRD; s/p tunneled cath placement. - Nephrology following Malignant HTN; blood pressure under better control. PAFIB with RVR: Maintaining SR Acute on chronic diastolic CHF: improved. ECHO with normal LV systolic function, mild LVH and moderately elevated PAP at 51 mmHg. Second part of MPI test pending. Anemia of chronic disease: hgb stable s/p transfusion Diabetes, II; as per IM Hyperlipidemia; statin. LDL 45 LE PAD: no claudications or wounds. PAUL MARTIN APRN Aug 09, 2019 09:34 FATOU LOPEZ MD Aug 09, 2019 16:45
[2019-08-09] MEDS ORDERED: SEVE800T9 PO (09:35)
[2019-08-09] MEDS ORDERED: SODI650T PO (09:35)
[2019-08-09] MEDS ORDERED: AMLO10TA8 PO (09:35)
[2019-08-09] MEDS ORDERED: ASPI-612 PO (09:35)
[2019-08-09] MEDS ORDERED: LOSA-73 PO (09:35)
[2019-08-09] MEDS ORDERED: LABE200T4 PO (09:35)
[2019-08-09] MEDS ORDERED: REGADENOSON 0.4 MG/5 ML DISP.SYRIN. IV ONE (09:45)
[2019-08-09 09:58] LABS: BASO % 0 % (0-3); EOS # 0.2 x10^3/uL (0.0-0.7); EOS % 3 % (0-3); HEMATOCRIT 21.1 % (36.0-47.0); LYMPH # 1.1 x10^3/uL (1.0-4.8); LYMPH % 13 % (24-48); MEAN CORPUSCULAR HEMOGLOBIN 30 pg (25-35); MEAN CORPUSCULAR HGB CONC 33 g/dL (31-37); MEAN CORPUSCULAR VOLUME 90 fL (79-100); MONO # 0.8 x10^3/uL (0.0-1.1); MONO % 10 % (0-9); NEUT # 6.4 x10^3/uL (1.8-7.7); NEUT % 74 % (31-73); PLATELET COUNT 174 x10^3/uL (140-400); RED BLOOD COUNT 2.35 x10^6/uL (3.50-5.40); RED CELL DISTRIBUTION WIDTH 15.7 % (11.5-14.5); WHITE BLOOD COUNT 8.7 x10^3/uL (4.0-11.0)
[2019-08-09 10:08] LABS: HEMOGLOBIN 6.9 g/dL (12.0-15.5)
--- NOTE | 2019-08-09 11:17 | PDOC ---
Renal-Progress Notes Subjective Notes Notes NO NEW COMPLAINTS History of Present Illness Hx of present illness STABLE Vitals Vitals Vital Signs Date Time Temp Pulse Resp B/P (MAP) Pulse Ox O2 Delivery O2 Flow Rate FiO2 08/09/19 07:00 98.0 60 20 161/67 (98) 98 Room Air 98.0 08/08/19 19:19 2.0 Weight Weight [ ] I.O. Intake and Output Intake and Output 08/09/19 07:00 Intake Total 1320 ml Balance 1320 ml Intake Oral 1320 ml # Voids 3 Labs Labs Laboratory Tests Test 08/08/19 12:09 08/08/19 16:51 08/08/19 19:56 08/09/19 03:15 Glucose (Fingerstick) 108 mg/dL (70-99) 161 mg/dL (70-99) 152 mg/dL (70-99) White Blood Count 8.7 x10^3/uL (4.0-11.0) Red Blood Count 2.35 x10^6/uL (3.50-5.40) Hemoglobin 6.9 g/dL (12.0-15.5) Hematocrit 21.1 % (36.0-47.0) Mean Corpuscular Volume 90 fL (79-100) Mean Corpuscular Hemoglobin 30 pg (25-35) Mean Corpuscular Hemoglobin Concent 33 g/dL (31-37) Red Cell Distribution Width 15.7 % (11.5-14.5) Platelet Count 174 x10^3/uL (140-400) Neutrophils (%) (Auto) 74 % (31-73) Lymphocytes (%) (Auto) 13 % (24-48) Monocytes (%) (Auto) 10 % (0-9) Eosinophils (%) (Auto) 3 % (0-3) Basophils (%) (Auto) 0 % (0-3) Neutrophils # (Auto) 6.4 x10^3/uL (1.8-7.7) Lymphocytes # (Auto) 1.1 x10^3/uL (1.0-4.8) Monocytes # (Auto) 0.8 x10^3/uL (0.0-1.1) Eosinophils # (Auto) 0.2 x10^3/uL (0.0-0.7) Basophils # (Auto) 0.0 x10^3/uL (0.0-0.2) Sodium Level 139 mmol/L (136-145) Potassium Level 3.5 mmol/L (3.5-5.1) Chloride Level 102 mmol/L (98-107) Carbon Dioxide Level 31 mmol/L (21-32) Anion Gap 6 (6-14) Blood Urea Nitrogen 23 mg/dL (7-20) Creatinine 3.2 mg/dL (0.6-1.0) Estimated GFR (Cockcroft-Gault) 15.0 Glucose Level 110 mg/dL (70-99) Calcium Level 8.5 mg/dL (8.5-10.1) Test 08/09/19 07:40 Glucose (Fingerstick) 93 mg/dL (70-99) Micro Micro Microbiology 08/03/19 Urine Culture - Final, Complete 08/03/19 Urine Culture Result 1 (DAKOTA) - Final, Complete Review of Systems Constitutional: yes: alert, oriented Ears/Nose/Throat: Yes: no symptom reported Eyes: Yes: no symptom reported Pulmonary: Yes no symptom reported Cardiovascular: Yes no symptom reported Gastrointestional: Yes: no symptom reported Musculoskeletal: Yes: no symptom reported Skin: Yes no symptom reported Endocrine: Yes: no symptom reported Physical Exam General Appearance: no apparent distress Respiratory: bilateral CTA Heart: S1S2 Abdomen: soft, bowel sounds present Genitourinary: bladder flat Extremities: pulses present Neurology: alert, oriented, follow commands Assessment Assessment IMP NEW ESRD-NO UREMIA BUT UNABLE TO CONTROL EDEMA, BP AND ANEMIA P AFIB NOW IN NSR MET ACIDOSIS ANEMIA HTN DM II NON COMPLIANCE PLAN HD TODAY UF TOLERATED ABOUT 2.0 LITERS EVENTUALLY DO PD-DOES NOT WANT PD CATHETER NOW CONT NAHCO3 STARTED PO4 BINDERS ENC COMPLIANCE HTN PARTLY VOLUME DEPENDENT OP HD BEING SET UP ALSO NEED COVID 19 NEG FOR ACCEPTANCE AT OP HD UNIT D/W ATTENDING CECI PICHARDO MD Aug 09, 2019 11:17
--- NOTE | 2019-08-09 12:20 | RAD ---
MR#: [id number] Date of Study: 08/08/2019 Ordering Physician: EUNICE VELIZ, Referring Physician: HAYLEY HERNANDEZ Tech: RT Yolanda (R) (N) APPROVED REPORT Test Type: Pharmacological Stress Nurse/Tech: Denisha Guillen RN Test Indications: CHF, shortness of breath with exertion Cardiac History: Hypertension,kidney disease,diabetes Medications: See Electronic Medical Record Medical History: See Electronic Medical Record Resting ECG: a-fib with BBB and PVC Resting Heart Rate: 57 bpm Resting Blood Pressure: 156/59mmHg Pretest Chest Pain: No chest pain Nurse/Tech Notes S1,S2 and lungs clear to auscultation. Pharm. Details Pharmacologic stress testing was performed using 0.4mg per 5ml of regadenoson given intravenously ove r 7-10 seconds. Stress Symptoms Nausea and vomiting POST EXERCISE Reason for Termination: Infusion complete Target HR: No Max HR: 90 bpm 64% of Maximum Predicted HR: 140 bpm Max Blood Pressure: 222/88mmHg Blood Pressure response to exercise: Abnormal blood pressure response during stress. Heart Rate response to exercise: WNL Chest Pain: No. Arrhythmia: Yes. PVC ST Change: No. INTERPRETATION Stress EKG Conclusion: Baseline EKG showed sinus rhythm with non specific T wave changes. No ischemi c changes at peak stress. No arrhythmias. Imaging Protocol IMAGE PROTOCOL: Rest Tc-99m/stress Tc-99m 2 days Rest: Stress: Viability: Radiopharm.Tc99m YwairecogYq16s Sestamibi Dose30.2mCi 31mCi Duration 15min. 15min. Img Date 08/08/2019 08/09/2019 Inj-Img Fych99hou. 45min. Rest Admin Site:IV - Right AntecubitalAdministrator:RT Yolanda (R)(N) Stress Admin Site: IV - Right AntecubitalAdministrator: RT Yolanda (R)(N) STRESS DATA End Diast. Vol.162.0mlLVEDV index BSA72.0ml End Syst. Vol.56.0mlLVESV index BSA25.0ml Myocardial Ttnd150.0gEject. Rgctkstd04.0% Stress Scores Regional WT0.00Summed WT2.00 Regional WM0.00Summed WM0.00 LV Perfusion Scintigraphic images showed moderate sized predominantly fixed defect involving the apical wall consi stent with previous myocardial infarction with small amount of reversibility consistent with jeovany-inf arct ischemia. Wall Motion Apical wall hypokinesis with ejection fraction calculated at 65%. LV Perf. Quant 17 Seg. SSS10.00 17 Seg. SRS8.00 17 Seg. SDS2.00 Stress Defect Extent (% LAD)35.60Rest Defect Extent (% LAD)24.40Rev. Defect Extent (% LAD)29.40 Stress Defect Extent (% LCX) 5.00Rest Defect Extent (% LCX)8.80Rev. Defect Extent (% LCX)2.50 Stress Defect Extent (% RCA)17.80Rest Defect Extent (% RCA)18.90Rev. Defect Extent (% RCA)5.60 Stress Defect Extent (% FAYE)23.70Rest Defect Extent (% FAYE)19.30Rev. Defect Extent (% FAYE)16.10 Conclusion 1. Regadenoson cardioisotope stress test showed moderate infarct involving the apical wall small amou nt of jeovany-infarct ischemia. 2. Apical wall hypokinesis with ejection fraction calculated at 65%. 3. Low to intermediate risk for cardiac events. Signed by : Eunice Veliz, Electronically Approved : 08/09/2019 12:19:30
[2019-08-09] MEDS: PANTOPRAZOLE 40 MG TABLET.DR. PO SCH (12:42)
[2019-08-09] MEDS: SODIUM BICARBONATE 650 MG TABLET. PO SCH ×2 (12:43→14:00)
[2019-08-09] MEDS: BUMETANIDE 1 MG TABLET. PO SCH ×2 (12:43→16:00)
[2019-08-09] MEDS: ASPIRIN ENTERIC COATED 81 MG TABLET.DR. PO SCH (12:43)
[2019-08-09] MEDS: metOLazone 2.5 MG TABLET PO SCH ×2 (12:44→16:00)
--- NOTE | 2019-08-09 14:52 | NUR ---
SS following up with discharge planning. SS reviewed pt chart and discussed with pt RN. Pt has confirmed dialysis chair time at [facility], ; fax [phone], Wednesday, , and Wednesday at 0645. Pt is COVID19 test negative. SS faxed COVID results to [facility] Admissions. Per pt's RN, pt receiving unit of blood today and is not ready for discharge. SS will continue to follow for discharge planning.
[2019-08-09] MEDS: ISOSORBIDE MONONITRATE ER 30 MG TAB.ER.24H PO SCH (18:01)
[2019-08-09] MEDS: amLODIPine BESYLATE 10 MG TABLET PO SCH (18:02)
[2019-08-09] MEDS: LOSARTAN POTASSIUM 50 MG TABLET. PO SCH (18:02)
--- NOTE | 2019-08-09 20:27 | NUR ---
Discharge Note: DENNIS HAMMONDS [address] Discharge instructions and discharge home medications reviewed with Patient and a copy given. All questions have been answered and understanding verbalized. The following instructions and handouts were given: follow up, medications-prescriptions, renal-cardiac diet, blood sugar, hyper and hypotension, starting dialysis at [facility] on Wednesday - (per Dr. Colon) Discontinued lines and drains: IV removed, dialysis catheter in place. Patient discharged to home. wheelchair to private vehicle at front entrance by ALE[employer] Shell.
--- NOTE | 2019-08-10 10:18 | PDOC ---
Provider Note Provider Note Discharge summary dictated.#[id number]. YARELIS FONTENOT MD Aug 10, 2019 10:18
--- NOTE | 2019-08-10 10:40 | DS ---
DATE OF DISCHARGE: 08/09/2019 REASON FOR ADMISSION TO THE HOSPITAL: Shortness of breath, anasarca, anemia, and worsening kidney failure. CONSULTATIONS: Dr. Soto and Dr. Rouse. PROCEDURES DONE: 1. Echocardiogram. 2. Nuclear stress test. 3. Transfusion. 4. Insertion of dialysis catheter. 5. Starting dialysis. HOSPITAL COURSE: The patient is a 54-year-old female. The patient has a history of diabetes, nephrotic syndrome, chronic kidney disease stage 5 and she has developed shortness of breath, gained 15 pounds and she was admitted to the hospital. Her hemoglobin was 6.7 and she was transfused. The patient had an EGD and colonoscopy in the last 2 years, had seen Hematology in the past. Her kidney function was around 5, but she is not able to clear her fluids. The patient was seen by Renal and it was felt that she would be requiring dialysis. The patient was on dialysis last year for a short period. The patient wants peritoneal dialysis, but because of the COVID-19 and other situation, it was decided she would be better off getting hemodialysis for the time being, later on transition to the PD down the road. The patient was given 3 units of packed RBC, hemoglobin stayed above 7. She had echocardiogram which showed ejection fraction of 70%. She had a stress test, which shows apical infarct and she also had a tunneled dialysis catheter placed and she was dialyzed 3 days in a row in the hospital. She was tolerating that and she lost a lot of weight and the swelling was coming down. On the whole, patient was feeling better. It was recommended that follow with Cardiology, followup on the stress test results, and outpatient dialysis Wednesday, , and Wednesday. FINAL DIAGNOSES: 1. Severe anemia, possibly related to kidney disease. 2. End-stage renal disease, the patient started on hemodialysis. 3. Nephrotic syndrome. 4. Diabetes. 5. Thalium stress shoewd apical infarct, possibly silent. 6. Hypertension. 7. Hyperlipidemia. 8. Noncompliance. PLAN: At this time, she was discharged home, scheduled to see Cardiology outpatient. As mentioned, the patient had done an EGD colon in the last 3 years and if it continues to drop, probably we will refer to Heme/Onc and GI for further workup down the road. Because of COVID situation, the patient is anxious to go home and was discharged. YARELIS FONTENOT MD DR: DAGOBERTO/jamel JOB#: [id number] / [id number] BEVERLY
== END 2019-08-09 19:45 | disposition home or self-care (01) | DRG 673 ==
LOC: ER 13:57 → ED HOLD 16:44 → 2 SOUTH 20:02
PROVIDERS: ADMIT Internal Medicine; ATTEND Internal Medicine
PROC: 30233N1 Transfusion of Nonautologous Red Blood Cells into Peripheral Vein, Percutaneous Approach (ICD-10-PCS; 2019-08-03)
PROC: 0JH63XZ Insertion of Tunneled Vascular Access Device into Chest Subcutaneous Tissue and Fascia, Percutaneous Approach (ICD-10-PCS; principal; 2019-08-07)
PROC: 02H633Z Insertion of Infusion Device into Right Atrium, Percutaneous Approach (ICD-10-PCS; 2019-08-07)
PROC: B5181ZA Fluoroscopy of Superior Vena Cava using Low Osmolar Contrast, Guidance (ICD-10-PCS; 2019-08-07)
PROC: B548ZZA Ultrasonography of Superior Vena Cava, Guidance (ICD-10-PCS; 2019-08-07)
PROC: 5A1D70Z Performance of Urinary Filtration, Intermittent, Less than 6 Hours Per Day (ICD-10-PCS; 2019-08-07)
PROC: 5A1D70Z Performance of Urinary Filtration, Intermittent, Less than 6 Hours Per Day (ICD-10-PCS; 2019-08-08)
PROC: 5A1D70Z Performance of Urinary Filtration, Intermittent, Less than 6 Hours Per Day (ICD-10-PCS; 2019-08-09)
DX: N17.9 Acute kidney failure, unspecified (principal); I50.33 Acute on chronic diastolic (congestive) heart failure; I13.2 Hypertensive heart and chronic kidney disease with heart failure and with stage 5 chronic kidney disease, or end stage renal disease; E87.2 Acidosis; N04.9 Nephrotic syndrome with unspecified morphologic changes; N18.6 End stage renal disease; I48.0 Paroxysmal atrial fibrillation; E78.5 Hyperlipidemia, unspecified; E78.00 Pure hypercholesterolemia, unspecified; E11.22 Type 2 diabetes mellitus with diabetic chronic kidney disease; E11.51 Type 2 diabetes mellitus with diabetic peripheral angiopathy without gangrene; D63.1 Anemia in chronic kidney disease; M19.90 Unspecified osteoarthritis, unspecified site; E66.01 Morbid (severe) obesity due to excess calories; Z91.19 Patient's noncompliance with other medical treatment and regimen; Z83.3 Family history of diabetes mellitus; Z82.49 Family history of ischemic heart disease and other diseases of the circulatory system; Z90.710 Acquired absence of both cervix and uterus; Z79.4 Long term (current) use of insulin; Z68.39 Body mass index [BMI] 39.0-39.9, adult; Z88.0 Allergy status to penicillin; Z88.2 Allergy status to sulfonamides; Z98.49 Cataract extraction status, unspecified eye; Z83.49 Family history of other endocrine, nutritional and metabolic diseases; Z20.828 Contact with and (suspected) exposure to other viral communicable diseases
CPT/HCPCS: 36415; 36558; 71045; 71046; 76937; 77001; 78452; 80048; 80053; 80061; 81001; 82962; 83036; 83540; 83550; 83735; 83880; 84100; 84443; 84484; 85025; 85027; 85610; 85730; 86704; 86850; 86900; 86901; 86920; 87086; 87340; 93005; 93017; 93306; 96374; 96375; 99152; 99153; 99285; A9500; C1750; C1769; C1892; J0360; J1160; J1815; J1940; J2250; J2405; J2785; J3010; J3370; J3490; P9016; G0378

== ENCOUNTER → 2020-02-12 | Outpatient (CLI) | payer MEDICARE, BC ==
[2019-08-09 18:02] VITALS: BP 185/77
[~2020-02-12] MED LIST changes: +AMLO-186 PO; +AMLO-187 PO; -AMLO5TAB10 PO; -ASPI-612 PO; +ASPI-886 PO; -ERTA1VIA IJ; +ERTA1VIA16 IJ; +FOLI0.8T3 PO; +INSU3INS2 SQ; +LABE200T4 PO; +LIDO30CR TP; +LOSA-73 PO; +SEVE800T9 PO; +SODI650T PO
== END ==
LOC: LAB 13:03
PROVIDERS: ATTEND Internal Medicine Cardiovascular Disease
DX: Z01.812 Encounter for preprocedural laboratory examination (principal); Z20.828 Contact with and (suspected) exposure to other viral communicable diseases
CPT/HCPCS: U0003-CS

== ENCOUNTER 2020-02-14 06:57 | Outpatient (CLI) | payer MEDICARE, BC ==
[2020-02-14] VITALS (17 sets, daily range): BP systolic 143–180; BP diastolic 65–86
[~2020-02-14] VITALS: Ht 170.2 cm; Wt 107.0 kg
[~2020-02-14 06:57] MED LIST changes: -FOLI0.8T3 PO; -INSU3INS2 SQ; -LIDO30CR TP
[2020-02-14] MEDS ORDERED: INSU3INS2 SQ (07:23)
[2020-02-14] MEDS ORDERED: LIDO30CR TP (07:23)
[2020-02-14] MEDS ORDERED: FOLI0.8T3 PO (07:23)
[2020-02-14] MEDS ORDERED: LIDOCAINE 1% Multi-Dose 20 ML VIAL. ONE ×2 (07:37→09:33)
[2020-02-14] MEDS ORDERED: HEPARIN for ARTERIAL LINE 1,500 ML ONE (07:37)
[2020-02-14] MEDS ORDERED: IODIXANOL 320 MG/ML 100 ML VIAL. ONE ×2 (07:37→09:43)
[2020-02-14] MEDS ORDERED: PROPOFOL 10 MG/ML (20ML) VIAL. IV ONE (07:46)
[2020-02-14] MEDS ORDERED: LIDOCAINE 2% PF 5 ML VIAL. ONE (07:46)
[2020-02-14] MEDS ORDERED: ePHEDrine PF IN SALINE 50 MG/10 ML SYRINGE. IV ONE (07:47)
[2020-02-14] MEDS ORDERED: GLYCOPYRROLATE 1 MG/5 ML VIAL. ONE (07:58)
[2020-02-14 08:11] LABS: CALCIUM 9.4 mg/dL (8.5-10.1); CREATININE 4.3 mg/dL (0.6-1.0); GFR 10.7; POTASSIUM 3.6 mmol/L (3.5-5.1)
[2020-02-14] MEDS ORDERED: MIDAZOLAM HCL/PF 5 MG/5 ML VIAL. ONE (08:16)
[2020-02-14] MEDS ORDERED: fentaNYL PF VIAL 100 MCG/2 ML VIAL ONE (08:16)
[2020-02-14 08:25] LABS: HEMATOCRIT 26.7 % (36.0-47.0); HEMOGLOBIN 8.7 g/dL (12.0-15.5); RED BLOOD COUNT 3.04 x10^6/uL (3.50-5.40); RED CELL DISTRIBUTION WIDTH 17.3 % (11.5-14.5); WHITE BLOOD COUNT 8.2 x10^3/uL (4.0-11.0)
[2020-02-14 08:42] LABS: PROTHROMBIN TIME PATIENT 15.3 SEC (11.7-14.0)
[2020-02-14] MEDS ORDERED: fentaNYL PF VIAL 100 MCG/2 ML VIAL IV ONE (09:00)
[2020-02-14] MEDS ORDERED: CONTRAST GIVEN. MC PRN (09:00)
[2020-02-14] MEDS ORDERED: MIDAZOLAM HCL/PF 5 MG/5 ML VIAL. IV ONE (09:00)
[2020-02-14] MEDS ORDERED: LIDOCAINE 1% Multi-Dose 20 ML VIAL. INJ ONE (09:00)
[2020-02-14] MEDS ORDERED: IODIXANOL 320 MG/ML 100 ML VIAL. IART ONE (09:00)
--- NOTE | 2020-02-14 09:18 | PDOC ---
MODERATE SEDATION ASSESSMENT RISKS/ALTERNATIVES Risks/Alternatives Risks and alternatives of this type of sedation and procedure discussed with: RISK/ALTERNATIVES: Patient H & P ON CHART H & P H & P on chart and reviewed for co-morbid conditions and appropriate labs. H&P ON CHART: Yes STATUS PREG STATUS ASSESSED: Yes MEDS/ALLERGIES REVIEWED Meds/Allergies Reviewed Medications and Allergies including time and route of recently administered narcotics and sedatives. MEDS/ALLERGIES REVIEWED: Yes ASA RATING ASA RATING: II AIRWAY ASSESSMENT Airway Assessment Airway patency, oral function limitations, presence of caps, crowns, dentures, partials, and ability to extend neck assessed. AIRWAY ASSESSMENT: Yes MALLAMPATI SCORE MALLAMPATI SCORE: II PRE-SEDATION ASSESSMENT PRE-SEDATION ASSESSMENT: Yes FATOU LOPEZ MD Feb 14, 2020 09:18
[2020-02-14] MEDS ORDERED: IV NORMAL SALINE 1000ML BAG 1,000 ML IV SCH (10:27)
[2020-02-14] MEDS ORDERED: NITROGLYCERIN SUBLINGUAL 0.4 MG BOTTLE OF 25. SL PRN (10:30)
[2020-02-14] MEDS ORDERED: 0.9 % SODIUM CHLORIDE 10 ML DISP.SYRIN. IV PRN (10:30)
[2020-02-14] MEDS ORDERED: FUROSEMIDE 40 MG/4 ML VIAL. IVP ONE (11:45)
--- NOTE | 2020-02-14 13:30 | NUR ---
Dr. Lazo notified via telephone patient oxygen sats 85%-88% on room air upon patient arriving to hospital for outpatient procedure, patient placed on 2L/NC with oxygen sats 91%-95%. After cardiac cath unable to titrate oxygen to room air, oxygen sats 85%-90% on room air. Dr Lazo notified via telephone and patient given Lasix 40mg IVP X1 per Dr Lazo. No improvement of oxygen sat on room air after Lasix IV given and patient sitting up, patient denies feeling short of breath and does appear to be in respirtory distress. Dr Lazo notified via telephone, per Dr. Lazo send patient home on room air patient, patient is asymptomatic. Blood pressure and heart rate within normal limits.
--- NOTE | 2020-02-14 14:33 | NUR ---
Discharge Note: DENNIS HAMMONDS Discharge instructions and discharge home medications reviewed with Family Member and a copy given. All questions have been answered and understanding verbalized. patient ate breakfast with no issues. The following instructions and handouts were given: Moderate sedation and groin site care. Discontinued lines and drains: Right forearm PIV, dressing clean dry intact. Patient discharged to home with brother via wheelchair to private vehicle.
--- NOTE | 2020-02-14 14:36 | CARD ---
MR#: [id number] Date of Study: 02/14/2020 Ordering Physician: FATOU ROMERO, Referring Physician: FATOU ROMERO, Tech: VINAY GOMEZ RTR APPROVED REPORT Procedures Left heart catheterization Selective coronary angiogram Right heart catheterization The patient is a 54-year-old female with a history of coronary disease hypertension, paroxysmal atria l fibrillation and end-stage renal disease on hemodialysis. An MPI test on 08/09/19 showed a moderate size fixed apical defect with an ejection fraction of 65%. Echocardiogram showed normal LV systolic function with mild tricuspid regurgitation and a pulmonary artery pressure of 51 mmHg. She has no c hest pain. The patient is now being evaluated by the transplant center at . They requested a hear t catheterization for further evaluation for a possible renal transplant. Risks and benefits of a he art catheterization were discussed with the patient. The patient agreed to proceed. After informed consent was obtained the patient was brought to the heart catheterization lab. The ar ea the right femoral artery and vein were was prepared in the usual manner with Betadine, sterile tiff ping and local anesthetic. An 18-gauge needle was used to enter the right femoral artery, a wire ketan laurel and a 6 [place] sheath placed over the wire. An 18-gauge needle was then used to enter the right femoral vein, a wire placed and an 8 [place] sheath placed over the wire. Initially a 6 [place] JL4 di agnostic catheter was used to engage the left coronary system. Sequential injections in various view s were obtained. A 6 [place] Selvin right diagnostic catheter was then used to engage the right cor onary artery and sequential injections of various views were obtained. A pigtail catheter was advanc ed the ascending aorta and then the left ventricle. Pressures were obtained. No left ventriculogram was performed. Pullback pressures were measured. The catheter was removed from the patient. All c atheter exchanges were over a J-wire. A [place]-Mora catheter was then advanced through the right femor al venous sheath. It was advanced to the pulmonary capillary wedge position. Pressures were obtaine d. Pressures were obtained sequentially in the pulmonary artery, right ventricle and right atrium. The catheter was then removed from the patient. Injection of the arterial sheath showed normal place ment. The arterial sheath was removed and sealed with an Angio-Seal product. The venous sheath was removed and sealed with direct pressure. The patient was moved to the holding area. There were no i mmediate complications. Findings. Hemodynamics. LV pressure 134/9/20. Aortic root pressure 132/80 Pulmonary capillary wedge pressure : 22 PA pressure: 60/26/37 RV: 64/8/18 RA pressure: 18 Coronaries. The left system was severely calcified. Left main. The left main had a distal 20% lesion. Left anterior descending. The LAD had a proximal 25% lesion, a mid 40% lesion and a distal 85% lesio n and a more distal 90% lesion. Left circumflex. The left circumflex was a dominant vessel. At its origin there was a 50% tapering lesion starting at the origin. The obtuse marginal system was small with obtuse marginal 1 having a lesion of 80% in a small vessel and obtuse marginal 2 having an ostial lesion of 70% Right coronary artery the right coronary was a moderate size nondominant vessel. It had a mid 15% le gerogina and distal small vessel disease. <Conclusion> Severe disease in a calcified LAD with the most significant lesions being a distal 85% and a more dis lyle 90% lesion. This appeared to be consistent with a previous infarct seen on her nuclear stress te sting. Moderate disease in the left circumflex and right coronary artery as noted above with small vessel di sease in the OM system. Elevated right-sided filling pressures. Signed by : Fatou Romero MD Electronically Approved : 02/14/2020 14:35:56
== END 2020-02-14 14:20 | disposition home or self-care (01) ==
LOC: CCL 06:57
PROVIDERS: ATTEND Internal Medicine Cardiovascular Disease
DX: R94.39 Abnormal result of other cardiovascular function study (principal); I73.89 Other specified peripheral vascular diseases; I48.0 Paroxysmal atrial fibrillation; I13.2 Hypertensive heart and chronic kidney disease with heart failure and with stage 5 chronic kidney disease, or end stage renal disease; I50.9 Heart failure, unspecified; N18.6 End stage renal disease; E11.22 Type 2 diabetes mellitus with diabetic chronic kidney disease; Z99.2 Dependence on renal dialysis; Z88.2 Allergy status to sulfonamides; Z88.0 Allergy status to penicillin; Z79.84 Long term (current) use of oral hypoglycemic drugs; Z79.899 Other long term (current) drug therapy; Z98.890 Other specified postprocedural states
CPT/HCPCS: 36415; 80048; 85027; 85610; 93460; 99152; 99153; C1760; C1769; C1773; C1892; G0269; J1644; J1940; J2250; J2704; J3010; J3490; Q9967; C1771

== ENCOUNTER → 2020-04-15 | Outpatient (CLI) | payer MEDICARE, BC ==
[2020-02-14 14:00] VITALS: BP 143/80
[~2020-04-15] MED LIST changes: +FOLI0.8T3 PO; +INSU3INS2 SQ; +LIDO30CR TP
--- NOTE | 2020-04-16 02:34 | RAD ---
Two-view chest dated 04/15/2020. Comparison made to 08/05/2019. Clinical data indication: Covid 19. Shortness of breath. FINDINGS: PA and lateral views obtained. Heart and mediastinal contours are stable. There is some hazy airspace disease at the perihilar regions and bilateral lung bases. No definite pleural effusion. No pneumoth orax. IMPRESSION: 1. Hazy bibasilar airspace disease, atelectasis versus early pneumonia. Covid 19 pneumonitis not excl uded. Electronically signed by: Jameel Moran MD (04/16/2020 2:31 AM) IRENE
== END ==
LOC: RAD 15:32
PROVIDERS: ATTEND Internal Medicine
DX: U07.1 COVID-19 (principal); R06.02 Shortness of breath
CPT/HCPCS: 71046

== ENCOUNTER 2020-04-22 07:47 | Inpatient (IN) | payer MEDICARE, BC ==
[2020-04-22] VITALS (13 sets, daily range): BP systolic 91–197; BP diastolic 56–85
[~2020-04-22] VITALS: Ht 167.6 cm; Wt 100.9 kg
[~2020-04-22 07:47] MED LIST changes: -CIPR500T PO; +CIPR500T2 PO; -ISOS60TA2 PO; +ISOS60TA55 PO; -LIDO30CR TP; +LIDO30CR2 TP
[2020-04-22] MEDS ORDERED: ONDANSETRON PF 4 MG/2 ML VIAL. IVP ONE (08:00)
--- NOTE | 2020-04-22 08:25 | PHYS DOC ---
Past Medical History Past Medical History: Anemia, CHF, Diabetes-Type II, High Cholesterol, Hy pertension, Renal Disease, Renal Failure Additional Past Medical Histor: COVID 19 Past Surgical History: Hysterectomy, Other Additional Past Surgical Histo: Dilation and Curettage, dialysis access to R chest, RT TOE AMPUTATION Smoking Status: Never Smoker Alcohol Use: Rarely Drug Use: None General Adult EDM: Chief Complaint: SHORTNESS OF BREATH HPI: HPI: 54-year-old female past medical history significant for esrd (TuThSa), dm, htn, hld, cad (cath 01/2020), HFpEF, severe anemia, pAF (on no AC), anasarca and nephrotic syndrome, presents the ED with complaints of progressive worsening shortness of breath and orthopnea, now with nausea and nonbloody nonbilious vomiting that occurs after coughing. Reports symptoms have been progressive for the past 2 weeks after she tested positive for Covid at her dialysis center. Had dialysis on Wednesday and Wednesday with no improvement in her symptoms. States she was unable to sleep last night. Not on any AC. Reports no new or worsening LE swelling. Has no underlying copd or asthma. Does still make urine. Review of Systems: Review of Systems: Constitutional: Denies fever or chills. [] Eyes: Denies change in visual acuity. [] HENT: Denies nasal congestion or sore throat. [] Respiratory: Denies hemoptysis Cardiovascular: Denies chest pain or edema. [] GI: Denies abdominal pain, nausea, vomiting, bloody stools or diarrhea. [] : Denies dysuria or hematuria Musculoskeletal: Denies back pain or joint pain. [] Integument: Denies rash or skin color changes Neurologic: Denies headache, neck stiffness, focal weakness or sensory c hanges. [] Endocrine: Denies polyuria or polydipsia. [] Lymphatic: Denies swollen glands. [] Psychiatric: Denies depression or anxiety. [] Heart Score: Risk Factors: Risk Factors: DM, Current or recent (<one month) smoker, HTN, HLP, family history of CAD, obesity. Risk Scores: Score 0 - 3: 2.5% MACE over next 6 weeks - Discharge Home Score 4 - 6: 20.3% MACE over next 6 weeks - Admit for Clinical Observation Score 7 - 10: 72.7% MACE over next 6 weeks - Early Invasive Strategies Current Medications: Current Medications Medications (Trade) Dose Ordered Sig/Joshua Start Time Stop Time Status Last Admin Dose Admin Diltiazem HCl (Cardizem Iv Push) 20 mg 1X ONCE 04/22/20 08:30 04/22/20 08:31 UNV Ondansetron HCl (Zofran) 8 mg 1X ONCE 04/22/20 08:00 04/22/20 08:01 DC Sodium Chloride 500 ml @ 500 mls/hr 1X ONCE 04/22/20 08:30 04/22/20 09:29 UNV Allergies: Allergies: Allergies Coded Allergies Type Severity Reaction Last Updated Verified Penicillins Allergy Intermediate RED RASH (NOT HIVES) 06/20/19 Yes Sulfa (Sulfonamide Antibiotics) Allergy Intermediate 06/20/19 Yes Physical Exam: PE: Constitutional: afebrile, anasarca/morbid obesity, HENT: Normocephalic, atraumatic, dry mucous membranes Eyes: EOMI, conjunctiva normal, no discharge. Neck: Normal range of motion, supple, Cardiovascular: S1/2 present, irregular rhythm-rvr Lungs & Thorax: Speaking in full sentences, bilateral equal chest rise, +mild/moderate tachypnea with subcostal retractions, requiring 4L NC, Abdomen: soft, no tenderness, foreceful posttussive emesis in ed Skin: Warm, dry, no erythema, no rash. [] Back: No tenderness, no CVA tenderness. [] Extremities: No tenderness, no cyanosis, bl equal le edema Neurologic: Alert and oriented X 3, normal motor function, normal sensory function, no focal deficits noted. [] Psychologic: Affect normal, judgement normal, mood normal. [] Current Patient Data: Vital Signs: Vital Signs Date Time Temp Pulse Resp B/P (MAP) Pulse Ox O2 Delivery O2 Flow Rate FiO2 04/22/20 08:21 39 96 Nasal Cannula 4.0 04/22/20 07:59 98.1 118 203/95 (131) 98.1 EKG: EKG: Atrial fibrillation RVR at 145 bpm, left axis deviation, T wave inversion 1 and aVL, no ST elevations or ST depressions Radiology/Procedures: Radiology/Procedures: [] Impression: [id number] score of 4 HAS-BLED score of 2 Course & Med Decision Making: Course & Med Decision Making Pertinent Labs and Imaging studies reviewed. (See chart for details) Concern for acute hypoxic respiratory failure in the setting of septic shock w/Covid and pulmonary edema +/-hcap, with NSTEMI (likely type 2) and atrial fibrillation w/RVR. Started on broad-spectrum antibiotics, nitro paste and cardizem drip. Ddx for pulmonary edema include Covid, septic shock, fluid overload and atrial fibrillation and RVR-thus, aggressive IVFs could push an already anasarcic pt into worsening pulm edema requiring intubation. Consults placed for cardiology, nephrology and pulmonology. Pt in critical condition with very low threshold for intubation. Pt to be admitted to Dr. Colon, ICU. I have spoken with the patient and/or caregivers. I have explained the patient's condition, diagnosis and treatment plan based on the information available to me at this time. I have answered the patient's and/or caregivers questions and answered any concerns. The patient and/or caregivers have as good an understanding of the patient's diagnosis, condition and treatment plan as can be expected at this point. The patient has been stabilized within the capability of the emergency department. The patient will be transported for further care and management or will be moved to an observation or inpatient service. I have communicated with the staff or medical practitioner taking over this patient's care. Critical Care: Authorized and Performed by: Radha Grewal DO Total critical care time: approximately 75 minutes Due to a high probability of clinically significant, life threatening deterioration, the patient required my highest level of preparedness to intervene emergently and I personally spent this critical care time directly and personally managing the patient. This critical care time included obtaining a history; examining the patient; pulse oximetry; ventilator management if necessary; ordering and review of studies; arranging urgent treatment with development of a management plan; evaluation of patient's response to treatment; frequent reassessment; discussion with patient/family; and, discussions with other providers. This critical care time was performed to assess and manage the high probability of imminent, life-threatening deterioration that could result in multi-organ failure. It was exclusive of separately billable procedures and treating other patients and teaching time. Please see MDM section and the rest of the note for further information on patient assessment and treatment. Kaylin Disclaimer: Kaylin Disclaimer: This electronic medical record was generated, in whole or in part, using a voice recognition dictation system. Departure Departure Impression: Primary Impression: Acute pulmonary edema Additional Impressions: COVID-19 Acute respiratory failure with hypoxia NSTEMI (non-ST elevated myocardial infarction) Atrial fibrillation with RVR Septic shock Disposition: 09 ADMITTED INPT THIS HOSP Admitting Physician: Serena Colon Condition: CRITICAL Referrals: SERENA COLON MD (PCP) [facility] Apr 22, 2020 08:25
[2020-04-22] MEDS ORDERED: NITROGLYCERIN PREMIX 250 ML IV ONE (08:30)
[2020-04-22] MEDS ORDERED: IV NORMAL SALINE 500ML BAG 500 ML IV ONE (08:30)
[2020-04-22] MEDS ORDERED: NITROGLYCERIN OINT 1 GM PACKET. TP ONE (08:30)
[2020-04-22] MEDS ORDERED: FUROSEMIDE 40 MG/4 ML VIAL. IVP ONE (08:45)
[2020-04-22 08:54] LABS: BASO % 0 % (0-3); EOS % 0 % (0-3); HEMATOCRIT 32.5 % (36.0-47.0); HEMOGLOBIN 10.5 g/dL (12.0-15.5); LYMPH # 0.8 x10^3/uL (1.0-4.8); LYMPH % 7 % (24-48); MEAN CORPUSCULAR HEMOGLOBIN 28 pg (25-35); MEAN CORPUSCULAR HGB CONC 32 g/dL (31-37); MEAN CORPUSCULAR VOLUME 87 fL (79-100); MONO # 0.5 x10^3/uL (0.0-1.1); MONO % 5 % (0-9); NEUT # 10.1 x10^3/uL (1.8-7.7); NEUT % 88 % (31-73); PLATELET COUNT 112 x10^3/uL (140-400); RED BLOOD COUNT 3.76 x10^6/uL (3.50-5.40); RED CELL DISTRIBUTION WIDTH 17.5 % (11.5-14.5); WHITE BLOOD COUNT 11.5 x10^3/uL (4.0-11.0)
[2020-04-22 09:02] LABS: CALCIUM 9.3 mg/dL (8.5-10.1); CREATININE 4.4 mg/dL (0.6-1.0); GFR 10.4
[2020-04-22 09:13] LABS: BASE EXCESS ABG -4 mmol/L (-3-3); HCO3 ABG 20 mmol/L (21-28); PCO2 ABG 32 mmHg (35-46); PO2 ABG 69 mmHg (75-108); SAT O2 ABG 91 % (92-99)
[2020-04-22 09:14] LABS: ALBUMIN 3.1 g/dL (3.4-5.0); DIRECT BILIRUBIN 0.6 mg/dL (0.0-0.2); TOTAL BILIRUBIN 1.8 mg/dL (0.2-1.0); TOTAL PROTEIN 7.5 g/dL (6.4-8.2)
[2020-04-22] MEDS: guaiFENesin/CODEINE 100mg/10mg 5 ML LIQUID PO PRN (09:38)
[2020-04-22 09:44] LABS: INFLUENZA A PATIENT NEGATIVE (NEGATIVE); INFLUENZA B PATIENT NEGATIVE (NEGATIVE)
[2020-04-22 09:52] LABS: % BANDS 7 % (0-9); % LYMPHS 3 % (24-48); % MONOS 2 % (0-10); % SEGS 88 % (35-66); PLT ESTIMATE DECREASED (ADEQUATE)
[2020-04-22 09:53] LABS: ANISOCYTOSIS PRESENT
[2020-04-22 10:03] LABS: PROTHROMBIN TIME PATIENT 17.9 SEC (11.7-14.0)
--- NOTE | 2020-04-22 10:39 | RAD ---
Study: XR CHEST 1V Indication: Nausea and vomiting. Shortness of breath. Comparison: 04/15/2020 Findings: The cardiomediastinal silhouette is again seen to be enlarged. Bilateral airspace opacities, more con fluent on the right, have increased in extent from the comparison. There is again elevation of the ri ght hemidiaphragm with overlying volume loss. There may be a pleural effusion on the right. No pneumo thorax. Impression: Progressive airspace opacities on the right more so than left from 04/15/2020. There may be a right p leural effusion. In the setting of cardiomediastinal silhouette enlargement, interstitial/alveolar ed ventura should be considered though multifocal pneumonia is possible as well. Electronically signed by: DONNIE CALVERT MD (04/22/2020 10:37 AM) [id number]
[2020-04-22] MEDS ORDERED: VANCOMYCIN PER PHARMACY MC PRN (10:45)
[2020-04-22] MEDS ORDERED: AZTREONAM IV Push 2 GM VIAL. IVP ONE (10:45)
[2020-04-22] MEDS ORDERED: CEFEPIME HCL IV Push 2 GM VIAL. IVP ONE (11:00)
[2020-04-22] MEDS ORDERED: AZITHRMYCN 500MG IVPB FOR OMNI 250 ML IV ONE (11:00)
[2020-04-22] MEDS ORDERED: VANCOMYCIN 2 GM in IV NORMAL SALINE 500ML BAG 500 ML IV ONE (11:00)
[2020-04-22] MEDS ORDERED: MORPHINE SULFATE 2 MG/ML VIAL. IV PRN (11:30)
[2020-04-22] MEDS ORDERED: ONDANSETRON PF 4 MG/2 ML VIAL. IV PRN (11:30)
--- NOTE | 2020-04-22 13:15 | PDOC2 ---
PAUL MARTIN [employer] 04/22/20 1315: CARDIAC CONSULT DATE OF CONSULT Date of Consult DATE: 04/22/20 TIME: 13:13 REASON FOR CONSULT Reason for Consult: NSTEMI REFERRING PHYSICIAN Referring Physician: Dr. Grewal SOURCE Source: Chart review, Patient HISTORY OF PRESENT ILLNESS HISTORY OF PRESENT ILLNESS This is a 54 yo female who presented secondary to shortness of breath. Noted with elevated troponin, which prompted this consult. Patient reports progressive SOA over the last month. Much worse over the weekend. Denies any chest pain, palpitation, dizziness, diaphoresis, or nausea/vomiting. Is ESRD on HD. Reports compliance with HD. No recent fevers. PAST MEDICAL HISTORY Past Medical History Cardiovascular: AFIB (paroxysmal), CHF, HTN, Hyperlipidemia, Other (LE PAD), CAD Pulmonary: No pertinent hx CENTRAL NERVOUS SYSTEM: Other (No pertinent history) GI: No pertinent hx Heme/Onc: Anemia NOS Hepatobiliary: No pertinent hx Psych: No pertinent hx Musculoskeletal: Osteoarthritis Rheumatologic: No pertinent hx Infectious disease: No pertinent hx Renal/: Chronic renal insuff (CKD5, prior dialysis) Endocrine: Diabetes (2) Dermatology: No pertinent hx PAST SURGICAL HISTORY Past Surgical History Cataract Removal, Hysterectomy FAMILY HISTORY Family History Smoke: No ALCOHOL: none Drugs: None SOCIAL HISTORY Smoke: No ALCOHOL: none Drugs: None Lives: with Family CURRENT MEDICATIONS CURRENT MEDICATIONS Current Medications Medications (Trade) Dose Ordered Sig/Joshua Route PRN Reason Start Time Stop Time Status Last Admin Dose Admin Ondansetron HCl (Zofran) 8 mg 1X ONCE IVP 04/22/20 08:00 04/22/20 08:01 DC 04/22/20 08:30 Diltiazem HCl (Cardizem Iv Push) 20 mg 1X ONCE IVP 04/22/20 08:30 04/22/20 08:33 DC 04/22/20 09:21 Nitroglycerin (Nitro-Bid Oint) 1.5 inch 1X ONCE TP 04/22/20 08:30 04/22/20 08:33 DC 04/22/20 09:35 Furosemide (Lasix) 60 mg 1X ONCE IVP 04/22/20 08:45 04/22/20 08:46 DC 04/22/20 09:25 Guaifenesin/ Codeine Phosphate (Robitussin Ac) 10 ml PRN Q6HRS PRN PO COUGH 04/22/20 08:45 04/22/20 09:38 Diltiazem HCl 125 mg/Sodium Chloride 125 ml @ 5 mls/hr CONT PRN IV SEE I/O RECORD 04/22/20 08:45 04/22/20 09:07 Cefepime HCl (Maxipime) 2 gm 1X ONCE IVP 04/22/20 11:00 04/22/20 11:01 DC 04/22/20 12:34 Vancomycin HCl 2 gm/Sodium Chloride 500 ml @ 250 mls/hr 1X ONCE IV 04/22/20 11:00 04/22/20 12:59 DC 04/22/20 12:35 ALLERGIES ALLERGIES: Coded Allergies: Penicillins (Verified Allergy, Intermediate, RED RASH (NOT HIVES), 06/20/19) TOLERATING ZOSYN Sulfa (Sulfonamide Antibiotics) (Verified Allergy, Intermediate, 06/20/19) PHYSICAL EXAM General: Alert, Oriented X3, Cooperative, mild distress HEENT: Atraumatic, Mucous membr. moist/pink Lungs: Other (on BIPAP) Heart: Other (AFIB ) Abdomen: Soft Extremities: Normal pulses, Other (trace bilateral LE edema ) Skin: No significant lesion Neuro: Normal speech, Sensation intact Psych/Mental Status: Mental status NL MUSCULOSKELETAL: Osteoarthritic changes both hands VITALS/I&O VITALS/I&O: Vital Signs Date Time Temp Pulse Resp B/P (MAP) Pulse Ox O2 Delivery O2 Flow Rate FiO2 04/22/20 12:29 124 33 132/69 (90) 93 BiPAP/CPAP 04/22/20 08:29 4.0 04/22/20 07:59 98.1 98.1 LABS Lab: Laboratory Tests Test 04/22/20 08:28 04/22/20 09:00 04/22/20 09:20 White Blood Count 11.5 x10^3/uL (4.0-11.0) H Red Blood Count 3.76 x10^6/uL (3.50-5.40) Hemoglobin 10.5 g/dL (12.0-15.5) L Hematocrit 32.5 % (36.0-47.0) L Mean Corpuscular Volume 87 fL (79-100) Mean Corpuscular Hemoglobin 28 pg (25-35) Mean Corpuscular Hemoglobin Concent 32 g/dL (31-37) Red Cell Distribution Width 17.5 % (11.5-14.5) H Platelet Count 112 x10^3/uL (140-400) L Neutrophils (%) (Auto) 88 % (31-73) H Lymphocytes (%) (Auto) 7 % (24-48) L Monocytes (%) (Auto) 5 % (0-9) Eosinophils (%) (Auto) 0 % (0-3) Basophils (%) (Auto) 0 % (0-3) Neutrophils # (Auto) 10.1 x10^3/uL (1.8-7.7) H Lymphocytes # (Auto) 0.8 x10^3/uL (1.0-4.8) L Monocytes # (Auto) 0.5 x10^3/uL (0.0-1.1) Eosinophils # (Auto) 0.0 x10^3/uL (0.0-0.7) Basophils # (Auto) 0.0 x10^3/uL (0.0-0.2) Segmented Neutrophils % 88 % (35-66) H Band Neutrophils % 7 % (0-9) Lymphocytes % 3 % (24-48) L Monocytes % 2 % (0-10) Platelet Estimate Decreased (ADEQUATE) Large Platelets Present Anisocytosis Present Prothrombin Time 17.9 SEC (11.7-14.0) H Prothrombin Time INR 1.5 (0.8-1.1) H Activated Partial Thromboplast Time 33 SEC (24-38) Sodium Level 134 mmol/L (136-145) L Potassium Level 4.0 mmol/L (3.5-5.1) Chloride Level 94 mmol/L (98-107) L Carbon Dioxide Level 21 mmol/L (21-32) Anion Gap 19 (6-14) H Blood Urea Nitrogen 60 mg/dL (7-20) H Creatinine 4.4 mg/dL (0.6-1.0) H Estimated GFR (Cockcroft-Gault) 10.4 Glucose Level 314 mg/dL (70-99) H Lactic Acid Level 7.9 mmol/L (0.4-2.0) *H Calcium Level 9.3 mg/dL (8.5-10.1) Magnesium Level 2.3 mg/dL (1.8-2.4) Total Bilirubin 1.8 mg/dL (0.2-1.0) H Direct Bilirubin 0.6 mg/dL (0.0-0.2) H Aspartate Amino Transferase (AST) 39 U/L (15-37) H Alanine Aminotransferase (ALT) 32 U/L (14-59) Alkaline Phosphatase 101 U/L (46-116) Creatine Kinase 58 U/L (26-192) Troponin I Quantitative 0.326 ng/mL (0.000-0.055) IF-Keh-L-Type Natriuretic Peptide > 35868 pg/mL (0-124) H Total Protein 7.5 g/dL (6.4-8.2) Albumin 3.1 g/dL (3.4-5.0) L Ethyl Alcohol Level < 10 mg/dL (0-10) O2 Saturation 91 % (92-99) L Arterial Blood pH 7.41 (7.35-7.45) Arterial Blood pCO2 at Patient Temp 32 mmHg (35-46) L Arterial Blood pO2 at Patient Temp 69 mmHg (75-108) L Arterial Blood HCO3 20 mmol/L (21-28) L Arterial Blood Base Excess -4 mmol/L (-3-3) L FiO2 2.5 lpm nc Influenza Type A Antigen Negative (NEGATIVE) Influenza Type B Antigen Negative (NEGATIVE) Laboratory Tests 04/22/20 08:28 Laboratory Tests 04/22/20 08:28 ECHOCARDIOGRAM ECHOCARDIOGRAM <Conclusion> The left ventricle is normal size. The left ventricular systolic function is normal and the ejection fraction is within normal range. The Ejection Fraction is 50-55%. There is mild concentric left ventricular hypertrophy. Doppler and Color Flow revealed trace aortic regurgitation. There is no significant aortic valvular stenosis. Doppler and Color-flow revealed trace mitral regurgitation. Doppler and Color Flow revealed trace to mild tricuspid regurgitation with an estimated PAP of 51 mmHg. DATE: 08/04/19 1611 HEART CATH HEART CATH Findings. Hemodynamics. LV pressure 134/9/20. Aortic root pressure 132/80 Pulmonary capillary wedge pressure : 22 PA pressure: 60/26/37 RV: 64/8/18 RA pressure: 18 Coronaries. The left system was severely calcified. Left main. The left main had a distal 20% lesion. Left anterior descending. The LAD had a proximal 25% lesion, a mid 40% lesion and a distal 85% lesion and a more distal 90% lesion. Left circumflex. The left circumflex was a dominant vessel. At its origin there was a 50% tapering lesion starting at the origin. The obtuse marginal system was small with obtuse marginal 1 having a lesion of 80% in a small vessel and obtuse marginal 2 having an ostial lesion of 70% Right coronary artery the right coronary was a moderate size nondominant vessel. It had a mid 15% lesion and distal small vessel disease. <Conclusion> Severe disease in a calcified LAD with the most significant lesions being a distal 85% and a more distal 90% lesion. This appeared to be consistent with a previous infarct seen on her nuclear stress testing. Moderate disease in the left circumflex and right coronary artery as noted above with small vessel disease in the OM system. Elevated right-sided filling pressures. DATE: 02/14/20 1016 ASSESSMENT/PLAN ASSESSMENT/PLAN 1. Acute respiratory failure with a/c CHF 2. Acute on chronic diastolic CHF; Echo 08/13 with preserved LV systolic function 3. ESRD on HD 4. Mild troponin elevation; initial 0.3. Most probable type II, demand ischemia. CP free. 5. CAD; recent cath as noted above. Diffused LAD disease with fixed defect on MPI. No lesions needing intervention. 6. Leukocytosis, lactic acidosis 7. Accelerated HTN; improved 8. PAFIB with RVR upon arrival; On Cardizem gtt. presently AFIB with controlled rate. Likely precipitated by above. 9. Diabetes, II 10. Hyperlipidemia 11. Morbid obesity 12. LE PAD: no claudications or wounds. 13. Thrombocytopenia Recommendations Trend troponin ASA, statin, Imdur Fluid offloading via HD Secondary prevention measures Resume home antiHTN therapy BiPAP support Resume BB therapy. Titrate off Cardizem as able. Consider antiarrhythmic therapy, OAC therapy Will start Lovenox for now for stroke prophylaxis Monitor PLTs FATOU LOPEZ MD 04/22/20 1656: CARDIAC CONSULT ASSESSMENT/PLAN ASSESSMENT/PLAN Patient seen and evaluated. I agree with our nurse practitioners assessment and plan as above. Acute respiratory failure. Probable acute on chronic diastolic failure however the patient also with KATJA. Continues short of breath. I agree with present treatment. Covid testing pending. Coronary artery disease. Recent catheterization was of a severely calcified LAD with distal lesions consistent with the patient's nuclear scan that shows an old distal anterior apical infarct. Additionally the patient has moderate disease in her left circumflex and right coronary artery. We will continue medical treatment. Trend troponin. Accelerated hypertension. Improved on present treatments. Paroxysmal atrial fibrillation. KATJA. Monitoring of lab. Hyperlipidemia. Continue statin. Diabetes mellitus. As per the primary service. Peripheral arterial disease. Continue present treatments. Thank you for allowing us to participate in the care of your patient. PAUL MARTIN APRN Apr 22, 2020 13:15 FATOU LOPEZ MD Apr 22, 2020 16:56
--- NOTE | 2020-04-22 15:16 | PDOC2 ---
CONSULT Date of Consult Date of Consult DATE: 04/22/20 TIME: 15:10 Reason for Consult Reason for Consult: ESRD, Shortness of breath Identification/Chief Complaint Chief Complaint " shortness of breath" Source Source: Chart review, Patient History of Present Illness Reason for Visit: 54-year-old CF with esrd (TuThSa), dm, htn, cad (cath 01/2020), HFpEF, severe anemia, pAF (on no AC), anasarca and nephrotic syndrome, presents the ED with complaints of progressive worsening shortness of breath and orthopnea, now with nausea and nonbloody nonbilious vomiting that occurs after coughing. Reports symptoms have been progressive for the past 2 weeks after she tested positive for Covid at her dialysis center. Had dialysis on Wednesday and Wednesday with no improvement in her symptoms. States she was unable to sleep last night. Not on any AC. Reports no new or worsening LE swelling. Has no underlying copd or asthma. Does still make urine. Currently patient in ICU,states breathing may be only slight better, on 6 lts of O2 by HI . Denies any CP, no fever, chills . No Urinary complaints . Reports she doesnt gain much fluid during dialysis treatments as she is compliant with her fluid and salt intake . Past Medical History Cardiovascular: AFIB, CHF, HTN, Hyperlipidemia, Other Pulmonary: No pertinent hx CENTRAL NERVOUS SYSTEM: Other GI: No pertinent hx Heme/Onc: Anemia NOS Hepatobiliary: No pertinent hx Psych: No pertinent hx Rheumatologic: No pertinent hx Infectious disease: No pertinent hx Renal/: Chronic renal insuff Endocrine: Diabetes Past Surgical History Past Surgical History: Cataract Removal, Hysterectomy Family History Family History: Coronary Artery Disease, Diabetes, High Cholestrol, Hypertension Social History No ALCOHOL: none Drugs: None Lives: with Family Current Problem List Problem List Problems Medical Problems: (1) Acute pulmonary edema Status: Acute (2) Acute respiratory failure with hypoxia Status: Acute (3) Atrial fibrillation with RVR Status: Acute (4) COVID-19 Status: Acute (5) NSTEMI (non-ST elevated myocardial infarction) Status: Acute (6) Septic shock Status: Acute Current Medications Current Medications Current Medications Ondansetron HCl (Zofran) 8 mg 1X ONCE IVP Last administered on 04/22/20at 08:30; Start 04/22/20 at 08:00; Stop 04/22/20 at 08:01; Status DC Sodium Chloride 500 ml @ 500 mls/hr 1X ONCE IV ; Start 04/22/20 at 08:30; Stop 04/22/20 at 08:26; Status DC Diltiazem HCl (Cardizem Iv Push) 20 mg 1X ONCE IVP Last administered on 04/22/20at 09:21; Start 04/22/20 at 08:30; Stop 04/22/20 at 08:33; Status DC Nitroglycerin (Nitro-Bid Oint) 1.5 inch 1X ONCE TP Last administered on 04/22/20at 09:35; Start 04/22/20 at 08:30; Stop 04/22/20 at 08:33; Status DC Nitroglycerin/ Dextrose 250 ml @ 0 mls/hr 1X ONCE IV ; Start 04/22/20 at 08:30; Stop 04/22/20 at 08:39; Status DC Furosemide (Lasix) 60 mg 1X ONCE IVP Last administered on 04/22/20at 09:25; Start 04/22/20 at 08:45; Stop 04/22/20 at 08:46; Status DC Guaifenesin/ Codeine Phosphate (Robitussin Ac) 10 ml PRN Q6HRS PRN PO COUGH Last administered on 04/22/20at 09:38; Start 04/22/20 at 08:45 Diltiazem HCl 125 mg/Sodium Chloride 125 ml @ 5 mls/hr CONT PRN IV SEE I/O RECORD Last administered on 04/22/20at 09:07; Start 04/22/20 at 08:45 Aztreonam (Azactam) 2 gm 1X ONCE IVP ; Start 04/22/20 at 10:45; Stop 04/22/20 at 10:53; Status DC Vancomycin HCl (Vanco Per Pharmacy) 1 each PRN DAILY PRN MC SEE COMMENTS; Start 04/22/20 at 10:45 Metronidazole 100 ml @ 100 mls/hr 1X ONCE IV ; Start 04/22/20 at 10:45; Stop 04/22/20 at 10:53; Status DC Cefepime HCl (Maxipime) 2 gm 1X ONCE IVP Last administered on 04/22/20at 12:34; Start 04/22/20 at 11:00; Stop 04/22/20 at 11:01; Status DC Azithromycin 250 ml @ 250 mls/hr 1X ONCE IV ; Start 04/22/20 at 11:00; Stop 04/22/20 at 11:59; Status DC Vancomycin HCl 2 gm/Sodium Chloride 500 ml @ 250 mls/hr 1X ONCE IV Last administered on 04/22/20at 12:35; Start 04/22/20 at 11:00; Stop 04/22/20 at 12:59; Status DC Ondansetron HCl (Zofran) 4 mg PRN Q8HRS PRN IV NAUSEA/VOMITING; Start 04/22/20 at 11:30; Stop 04/23/20 at 11:29 Morphine Sulfate (Morphine Sulfate) 2 mg PRN Q2HR PRN IV PAIN; Start 04/22/20 at 11:30; Stop 04/23/20 at 11:29 Active Scripts Active Sodium Bicarbonate 650 Mg Tablet 650 Mg PO TID 30 Days Renvela (Sevelamer Carbonate) 800 Mg Tablet 800 Mg PO TIDWMEALS 30 Days Aspirin Ec (Aspirin) 81 Mg Tablet.dr 81 Mg PO DAILYWBKFT 30 Days Cozaar (Losartan Potassium) 50 Mg Tablet 100 Mg PO DAILY 30 Days Labetalol Hcl 200 Mg Tablet 200 Mg PO BID 30 Days Reported Soliqua 100 Unit-33 Mcg/ml Pen (Insulin Glargine/Lixisenatide) 3 Ml Insuln.pen 3 Ml SQ PRN PRN Lidocaine-Prilocaine Cream (Lidocaine/Prilocaine) 30 Gm Cream..g. 30 Gm TP PRN PRN Nephro-Shabana Tablet (Folic Acid/Vitamin B Comp W-C) 0.8 Mg Tablet 1 Tab PO DAILY Atorvastatin Calcium 40 Mg Tablet 1 Tab PO QHS Isosorbide Mononitrate Er (Isosorbide Mononitrate) 60 Mg Tab.er.24h 1 Tab PO DAILY Allergies Allergies: Coded Allergies: Penicillins (Verified Allergy, Intermediate, RED RASH (NOT HIVES), 06/20/19) TOLERATING ZOSYN Sulfa (Sulfonamide Antibiotics) (Verified Allergy, Intermediate, 06/20/19) ROS Review of System As per HPI, rest of the ROS is negative Physical Exam Physical Exam GEN: Propped up in bed, mid distress HEEN OM moist, On O2 by NC NECK: supple CVS: S1S2 RESP: Crackles +, Non labored GI: Soft, NT : No CVA tenderness, No Suprapubic Tenderness NEURO Ax3, grossly normal SKIN No Rash EXT mild LE edema Vital Signs Vital Signs Date Time Temp Pulse Resp B/P (MAP) Pulse Ox O2 Delivery O2 Flow Rate FiO2 04/22/20 13:59 112 28 151/83 (105) 92 BiPAP/CPAP 04/22/20 08:29 4.0 04/22/20 07:59 98.1 98.1 Assessment & Plan ESRD- on HD TTS since July 2019 Last Dialysis was on 04/21(holiday schedule) with 1.5 lts UF, no significant interdialytic weight gain Cxr-progressive airspace opacities on the right more so than left from 04/15/2020. There may be a right pleural effusion. In the setting of cardiomediastinal silhouette enlargement, interstitial/alveolar edema should be considered though multifocal pneumonia is possible as well. Ac Resp Failure- Positive for CoVid at the dialysis unit, / Pneumonia . Currently on O2 by HI CoVID 19 diagnosed recently Labs Labs Laboratory Tests Test 04/22/20 08:28 04/22/20 09:00 04/22/20 09:20 White Blood Count 11.5 x10^3/uL (4.0-11.0) Red Blood Count 3.76 x10^6/uL (3.50-5.40) Hemoglobin 10.5 g/dL (12.0-15.5) Hematocrit 32.5 % (36.0-47.0) Mean Corpuscular Volume 87 fL (79-100) Mean Corpuscular Hemoglobin 28 pg (25-35) Mean Corpuscular Hemoglobin Concent 32 g/dL (31-37) Red Cell Distribution Width 17.5 % (11.5-14.5) Platelet Count 112 x10^3/uL (140-400) Neutrophils (%) (Auto) 88 % (31-73) Lymphocytes (%) (Auto) 7 % (24-48) Monocytes (%) (Auto) 5 % (0-9) Eosinophils (%) (Auto) 0 % (0-3) Basophils (%) (Auto) 0 % (0-3) Neutrophils # (Auto) 10.1 x10^3/uL (1.8-7.7) Lymphocytes # (Auto) 0.8 x10^3/uL (1.0-4.8) Monocytes # (Auto) 0.5 x10^3/uL (0.0-1.1) Eosinophils # (Auto) 0.0 x10^3/uL (0.0-0.7) Basophils # (Auto) 0.0 x10^3/uL (0.0-0.2) Segmented Neutrophils % 88 % (35-66) Band Neutrophils % 7 % (0-9) Lymphocytes % 3 % (24-48) Monocytes % 2 % (0-10) Platelet Estimate Decreased (ADEQUATE) Large Platelets Present Anisocytosis Present Prothrombin Time 17.9 SEC (11.7-14.0) Prothromb Time International Ratio 1.5 (0.8-1.1) Activated Partial Thromboplast Time 33 SEC (24-38) Sodium Level 134 mmol/L (136-145) Potassium Level 4.0 mmol/L (3.5-5.1) Chloride Level 94 mmol/L (98-107) Carbon Dioxide Level 21 mmol/L (21-32) Anion Gap 19 (6-14) Blood Urea Nitrogen 60 mg/dL (7-20) Creatinine 4.4 mg/dL (0.6-1.0) Estimated GFR (Cockcroft-Gault) 10.4 Glucose Level 314 mg/dL (70-99) Lactic Acid Level 7.9 mmol/L (0.4-2.0) Calcium Level 9.3 mg/dL (8.5-10.1) Magnesium Level 2.3 mg/dL (1.8-2.4) Total Bilirubin 1.8 mg/dL (0.2-1.0) Direct Bilirubin 0.6 mg/dL (0.0-0.2) Aspartate Amino Transf (AST/SGOT) 39 U/L (15-37) Alanine Aminotransferase (ALT/SGPT) 32 U/L (14-59) Alkaline Phosphatase 101 U/L (46-116) Creatine Kinase 58 U/L (26-192) Troponin I Quantitative 0.326 ng/mL (0.000-0.055) FW-Fww-[id number]-Type Natriuretic Peptide > 03106 pg/mL (0-124) Total Protein 7.5 g/dL (6.4-8.2) Albumin 3.1 g/dL (3.4-5.0) Ethyl Alcohol Level < 10 mg/dL (0-10) O2 Saturation 91 % (92-99) Arterial Blood pH 7.41 (7.35-7.45) Arterial Blood pCO2 at Patient Temp 32 mmHg (35-46) Arterial Blood pO2 at Patient Temp 69 mmHg (75-108) Arterial Blood HCO3 20 mmol/L (21-28) Arterial Blood Base Excess -4 mmol/L (-3-3) FiO2 2.5 lpm nc Influenza Type A Antigen Negative (NEGATIVE) Influenza Type B Antigen Negative (NEGATIVE) Laboratory Tests Test 04/22/20 08:28 04/22/20 09:00 04/22/20 09:20 White Blood Count 11.5 x10^3/uL (4.0-11.0) Red Blood Count 3.76 x10^6/uL (3.50-5.40) Hemoglobin 10.5 g/dL (12.0-15.5) Hematocrit 32.5 % (36.0-47.0) Mean Corpuscular Volume 87 fL (79-100) Mean Corpuscular Hemoglobin 28 pg (25-35) Mean Corpuscular Hemoglobin Concent 32 g/dL (31-37) Red Cell Distribution Width 17.5 % (11.5-14.5) Platelet Count 112 x10^3/uL (140-400) Neutrophils (%) (Auto) 88 % (31-73) Lymphocytes (%) (Auto) 7 % (24-48) Monocytes (%) (Auto) 5 % (0-9) Eosinophils (%) (Auto) 0 % (0-3) Basophils (%) (Auto) 0 % (0-3) Neutrophils # (Auto) 10.1 x10^3/uL (1.8-7.7) Lymphocytes # (Auto) 0.8 x10^3/uL (1.0-4.8) Monocytes # (Auto) 0.5 x10^3/uL (0.0-1.1) Eosinophils # (Auto) 0.0 x10^3/uL (0.0-0.7) Basophils # (Auto) 0.0 x10^3/uL (0.0-0.2) Segmented Neutrophils % 88 % (35-66) Band Neutrophils % 7 % (0-9) Lymphocytes % 3 % (24-48) Monocytes % 2 % (0-10) Platelet Estimate Decreased (ADEQUATE) Large Platelets Present Anisocytosis Present Prothrombin Time 17.9 SEC (11.7-14.0) Prothromb Time International Ratio 1.5 (0.8-1.1) Activated Partial Thromboplast Time 33 SEC (24-38) Sodium Level 134 mmol/L (136-145) Potassium Level 4.0 mmol/L (3.5-5.1) Chloride Level 94 mmol/L (98-107) Carbon Dioxide Level 21 mmol/L (21-32) Anion Gap 19 (6-14) Blood Urea Nitrogen 60 mg/dL (7-20) Creatinine 4.4 mg/dL (0.6-1.0) Estimated GFR (Cockcroft-Gault) 10.4 Glucose Level 314 mg/dL (70-99) Lactic Acid Level 7.9 mmol/L (0.4-2.0) Calcium Level 9.3 mg/dL (8.5-10.1) Magnesium Level 2.3 mg/dL (1.8-2.4) Total Bilirubin 1.8 mg/dL (0.2-1.0) Direct Bilirubin 0.6 mg/dL (0.0-0.2) Aspartate Amino Transf (AST/SGOT) 39 U/L (15-37) Alanine Aminotransferase (ALT/SGPT) 32 U/L (14-59) Alkaline Phosphatase 101 U/L (46-116) Creatine Kinase 58 U/L (26-192) Troponin I Quantitative 0.326 ng/mL (0.000-0.055) UX-[id number]-Type Natriuretic Peptide > 40189 pg/mL (0-124) Total Protein 7.5 g/dL (6.4-8.2) Albumin 3.1 g/dL (3.4-5.0) Ethyl Alcohol Level < 10 mg/dL (0-10) O2 Saturation 91 % (92-99) Arterial Blood pH 7.41 (7.35-7.45) Arterial Blood pCO2 at Patient Temp 32 mmHg (35-46) Arterial Blood pO2 at Patient Temp 69 mmHg (75-108) Arterial Blood HCO3 20 mmol/L (21-28) Arterial Blood Base Excess -4 mmol/L (-3-3) FiO2 2.5 lpm nc Influenza Type A Antigen Negative (NEGATIVE) Influenza Type B Antigen Negative (NEGATIVE) Review All relevant outside records, renal labs, imaging studies, telemetry/EKG's were reviewed. HIMANSHU MCGOVERN MD Apr 22, 2020 15:16
[2020-04-22] MEDS: VANCOMYCIN PER PHARMACY MC PRN (17:04)
--- NOTE | 2020-04-22 17:06 | NUR ---
Pharmacy Vancomycin Dosing Note S:Consulted to monitor and dose vancomycin started 04/22/20. O:DENNIS HAMMONDS is a 54 year old F with empiric coverage for possible PNA, COVID +. Height: 5 feet, 7 inches Weight: 106.1 kg Dosing Weight: Actual Other Antibiotics: AZITHROMCYIN 500 MG X 1, 250 MG DAILY X 4 DAYS CEFEPIME 2G IV X 1 DOSE IN ER LABS: Last BUN: 60 Last Creatinine: 4.4 Creatinine Clearance: ESRD on HD TTS Last WBC: 11.5 Tmax (past 24 hours): 98.1 Microbiology: BLOOD CX IN PROCESS A: Patient requires vancomycin as empiric coverage for possible pneumonia, recent positive COVID test. She is ESRD on HD TTS. P: 1. Initiate Vancomycin 2000 IV x 1 dose today. 2. Follow up pre-dialysis random level on 04/23/20 at 0600 3. Pharmacy will continue to monitor, follow and adjust therapy as needed. DANAE BOGGS [facility], 04/22/20 [id number]
[2020-04-22] MEDS ORDERED: DEXTROSE 50% 25 GM / 50ML DISP.SYRIN. IV PRN (17:15)
[2020-04-22] MEDS ORDERED: ENOXAPARIN 40 MG/0.4 ML SYRINGE. SQ SCH (17:15)
[2020-04-22] MEDS ORDERED: DEXAMETHASONE SOD PHOS 4 MG/ML VIAL IVP ONE (17:30)
--- NOTE | 2020-04-22 17:32 | PDOC ---
Provider Note Date of Service: DATE: 04/22/20 TIME: 17:31 Provider Note Pt seen in ICU ,H&P dictated.#[id number], Justifications for Admission Other Justification YARELIS FONTENOT MD Apr 22, 2020 17:32
[2020-04-22] MEDS ORDERED: IV NORMAL SALINE 1000ML BAG 1,000 ML IV PRN ×2 (17:45)
[2020-04-22] MEDS ORDERED: DIALYSIS PATIENT. MC PRN ×2 (17:45)
[2020-04-22] MEDS ORDERED: ALBUMIN HUMAN 25% 200 ML IV PRN (17:45)
[2020-04-22] MEDS: INSULIN LISPRO 300 UNITS/3 ML VIAL. SQ SCH (17:49)
--- NOTE | 2020-04-22 17:57 | HP ---
ADMIT DATE: 04/22/2020 LOCATION: 115 ICU. REASON FOR ADMISSION TO THE HOSPITAL: Shortness of breath. HISTORY OF PRESENT ILLNESS: The patient is a 54-year-old female. The patient was recently diagnosed with COVID infection and she also goes to dialysis outpatient Wednesday, and Wednesday, and she said she had a dialysis on Wednesday and over the course of the weekend, she got more short of breath, hard for her to move and last week when I saw her in the office, I recommended admission to the hospital. The patient refused and the patient was getting outpatient dexamethasone. She was also having shortness of breath. Had a diastolic heart failure and nephrotic syndrome. The patient is on hemodialysis for last 1 year. PAST SURGICAL HISTORY: Had a hysterectomy, D and C, dialysis catheter and right third toe amputation. FAMILY HISTORY: Diabetes, heart disease. SOCIAL HISTORY: Denies smoking, alcohol, drug abuse. The patient had a cardiac catheterization 6-8 months ago, shows severe calcified left main and the distal LAD disease. ALLERGIES: PENICILLIN, SULFA. MEDICATIONS AT HOME: The patient is on insulin sliding scale, aspirin 81 mg daily, atorvastatin 40 mg daily, Nephro-Shabana one daily, isosorbide 60 mg daily, labetalol 200 mg twice a day, losartan 50 mg twice a day, Renvela 800 mg three times daily, sodium bicarbonate 650 mg three times daily. REVIEW OF SYMPTOMS: Complains of shortness of breath, feeling tired, swelling in the lower extremities. Denies any fever. PHYSICAL EXAMINATION: VITAL SIGNS: Temperature 98, pulse 118, respirations 24, blood pressure 203/95; 76 on room air, she is on 2 liters at home, 97 on 4 liters, now she is on Ventimask 15 liters at 90%. HEENT: Head is atraumatic. Pupils equal. Oral cavity: No congestion. NECK: Supple. Thyroid not enlarged. JVD not elevated. CHEST: Symmetrical. CARDIOVASCULAR: S1, S2. LUNGS: Crackles at the base. ABDOMEN: Soft, bowel sounds present, no mass palpable. EXTERNAL GENITALIA: No Martinez. RECTAL: Deferred. EXTREMITIES: Trace edema, 1-2+ lower extremities. The patient has AV shunt in the left arm, good thrill. NEUROLOGIC: Moving all extremities. No focal deficits. The patient is able to talk, making conversation. LABORATORY DATA: Shows influenza was negative. LABORATORY DATA: White count was 11, hemoglobin 10, platelets 112. INR 1.5. Electrolytes show sodium 134, potassium 4.0, chloride 94, bicarbonate 21, anion gap 19, BUN 60, creatinine 4.4, glucose 314. AST 39, ALT 32. Lactic acid almost 8, came down to 1.7, magnesium 2.3. Troponin 0.3. BNP 35,000. Chest x-ray shows progressive airspace opacity in the right more than the left pleural effusion. FINAL IMPRESSION: 1. Shortness of breath, combination of heart failure as well as pneumonia. 2. Recent COVID infection. 3. Coronary artery disease. She has a distal LAD disease, had a cardiac catheterization 07/2019. 4. End-stage renal disease, on hemodialysis. 5. Insulin-dependent diabetes. 6. Diastolic heart failure. 7. Hyperlipidemia. PLAN: At this time, the patient was admitted to the hospital. Cultures were done, started on broad-spectrum antibiotics, Zithromax given, vancomycin as well as cefepime. Pulmonary is consulted. Cardiology is consulted for atrial fibrillation, put on Cardizem drip and breathing treatments, oxygen, BiPAP and Ventimask and also DVT prophylaxis with Lovenox and see how she responds. The patient is almost more than a week with the COVID. I am not sure remdesivir is going to be any helpful at this point, we will check with Pulmonology. YARELIS FONTENOT MD DR: DAGOBERTO/jamel JOB#: [id number] / [id number] BEVERLY
[2020-04-22] MEDS: SODIUM BICARBONATE 650 MG TABLET. PO SCH (21:35)
[2020-04-22] MEDS: ATORVASTATIN CALCIUM 40 MG TABLET. PO SCH (21:35)
[2020-04-22] MEDS: LABETALOL HCL 200 MG TABLET PO SCH (21:36)
[2020-04-22] MEDS: HEPARIN for SUB-Q USE 5,000 UNIT/ML VIAL. SQ SCH (21:37)
[2020-04-23] VITALS (24 sets, daily range): BP systolic 91–139; BP diastolic 44–73
[2020-04-23] MEDS: HEPARIN for SUB-Q USE 5,000 UNIT/ML VIAL. SQ SCH (05:36)
[2020-04-23] MEDS ORDERED: VANCOMYCIN RANDOM LEVEL. MC ONE (06:00)
[2020-04-23] MEDS: SEVELAMER CARBONATE 800 MG TABLET. PO SCH ×3 (08:37→17:00)
[2020-04-23] MEDS: LABETALOL HCL 200 MG TABLET PO SCH ×2 (08:37→20:42)
[2020-04-23] MEDS: FOLIC/VIT B COMP W-C (RENAL) TABLET. PO SCH (08:37)
[2020-04-23] MEDS: LOSARTAN POTASSIUM 50 MG TABLET. PO SCH (08:38)
[2020-04-23] MEDS: SODIUM BICARBONATE 650 MG TABLET. PO SCH ×3 (08:38→20:42)
[2020-04-23] MEDS: ASPIRIN ENTERIC COATED 81 MG TABLET.DR. PO SCH (08:38)
[2020-04-23] MEDS: ISOSORBIDE MONONITRATE ER 30 MG TAB.ER.24H PO SCH (08:38)
[2020-04-23] MEDS: DEXAMETHASONE 4 MG TABLET PO SCH (08:38)
[2020-04-23] MEDS: CEFEPIME HCL IV Push 1 GM VIAL. IVP SCH (08:38)
--- NOTE | 2020-04-23 08:56 | PDOC ---
PROGRESS NOTES Date of Service: DATE: 04/23/20 TIME: 08:55 Subjective Subjective feels better today, on ventimask 45 % Objective Objective Vital Signs Date Time Temp Pulse Resp B/P (MAP) Pulse Ox O2 Delivery O2 Flow Rate FiO2 04/23/20 08:38 75 125/63 04/23/20 07:00 16 91 Venturi Mask 15.0 04/23/20 01:59 97.2 97.2 Intake and Output 04/23/20 07:00 Intake Total 378 ml Output Total 0 ml Balance 378 ml Intake Oral 300 ml IV Total 78 ml Output Urine Total 0 ml Physical Exam Abdomen: Soft Heart: Other (AFIB ) Extremities: Normal pulses, Other (trace bilateral LE edema ) General: Alert, Oriented X3, Cooperative, mild distress HEENT: Atraumatic, Mucous membr. moist/pink Lungs: Other (on BIPAP) MUSCULOSKELETAL: Osteoarthritic changes both hands Neuro: Normal speech, Sensation intact Psych/Mental Status: Mental status NL Skin: No significant lesion Diagnosis Problem List Problems Medical Problems: (1) Acute pulmonary edema Status: Acute (2) Acute respiratory failure with hypoxia Status: Acute (3) Atrial fibrillation with RVR Status: Acute (4) COVID-19 Status: Acute (5) NSTEMI (non-ST elevated myocardial infarction) Status: Acute (6) Septic shock Status: Acute Assessment Assessment Problems Medical Problems: (1) Acute pulmonary edema Status: Acute (2) Acute respiratory failure with hypoxia Status: Acute (3) Atrial fibrillation with RVR Status: Acute (4) COVID-19 Status: Acute (5) NSTEMI (non-ST elevated myocardial infarction) Status: Acute (6) Septic shock Status: Acute FINAL IMPRESSION: 1. Shortness of breath, combination of heart failure as well as pneumonia. 2. Recent COVID infection. 3. Coronary artery disease. She has a distal LAD disease, had a cardiac catheterization 07/2019. 4. End-stage renal disease, on hemodialysis. 5. Insulin-dependent diabetes. 6. Diastolic heart failure. 7. Hyperlipidemia. PLAN: CTA today start on remdisivr .spoke with ID DIalysis today Lovenox ventimask iv cardizam for a fib. dexamethasome IV antibiotics.vanco+cefepime slight nicanor troponin At this time, the patient was admitted to the hospital. Cultures were done, started on broad-spectrum antibiotics, Zithromax given, vancomycin as well as cefepime. Pulmonary is consulted. Cardiology is consulted for atrial fibrillation, put on Cardizem drip and breathing treatments, oxygen, BiPAP and Ventimask and also DVT prophylaxis with Lovenox and see how she responds. The patient is almost more than a week with the COVID. I am not sure remdesivir is going to be any helpful at this point, we will check with Pulmonology. Plan Plan of Care Problems Medical Problems: (1) Acute pulmonary edema Status: Acute (2) Acute respiratory failure with hypoxia Status: Acute (3) Atrial fibrillation with RVR Status: Acute (4) COVID-19 Status: Acute (5) NSTEMI (non-ST elevated myocardial infarction) Status: Acute (6) Septic shock Status: Acute Comment Review of Relevant I have reviewed the following items allen (where applicable) has been applied. Labs Laboratory Tests Test 04/22/20 09:00 04/22/20 09:20 04/22/20 16:25 04/22/20 17:40 O2 Saturation 91 % (92-99) Arterial Blood pH 7.41 (7.35-7.45) Arterial Blood pCO2 at Patient Temp 32 mmHg (35-46) Arterial Blood pO2 at Patient Temp 69 mmHg (75-108) Arterial Blood HCO3 20 mmol/L (21-28) Arterial Blood Base Excess -4 mmol/L (-3-3) FiO2 2.5 lpm nc Influenza Type A Antigen Negative (NEGATIVE) Influenza Type B Antigen Negative (NEGATIVE) Lactic Acid Level 1.7 mmol/L (0.4-2.0) Glucose (Fingerstick) 256 mg/dL (70-99) Test 04/22/20 18:40 Troponin I Quantitative 0.878 ng/mL (0.000-0.055) Microbiology 04/22/20 Blood Culture - Preliminary, Resulted NO GROWTH AFTER 1 DAY Medications Current Medications Albumin Human 200 ml @ 200 mls/hr 1X PRN PRN IV Hypotension; Start 04/22/20 at 17:45; Stop 04/22/20 at 23:44; Status DC Aspirin (Ecotrin) 81 mg DAILYWBKFT PO Last administered on 04/23/20at 08:38; Start 04/23/20 at 08:00 Atorvastatin Calcium (Lipitor) 40 mg QHS PO Last administered on 04/22/20at 21:35; Start 04/22/20 at 21:00 Azithromycin 250 ml @ 250 mls/hr 1X ONCE IV Last administered on 04/22/20at 17:05; Start 04/22/20 at 11:00; Stop 04/22/20 at 11:59; Status DC Azithromycin 250 mg/Sodium Chloride 250 ml @ 250 mls/hr Q24H IV ; Start 04/23/20 at 17:00; Stop 04/26/20 at 17:00 Aztreonam (Azactam) 2 gm 1X ONCE IVP ; Start 04/22/20 at 10:45; Stop 04/22/20 at 10:53; Status DC Cefepime HCl (Maxipime) 1 gm Q24H IVP Last administered on 04/23/20at 08:38; Start 04/23/20 at 09:00 Cefepime HCl (Maxipime) 2 gm 1X ONCE IVP Last administered on 04/22/20at 12:34; Start 04/22/20 at 11:00; Stop 04/22/20 at 11:01; Status DC Dexamethasone (Decadron) 6 mg DAILYWBKFT PO Last administered on 04/23/20at 08:38; Start 04/23/20 at 08:00 Dexamethasone Sodium Phosphate (Decadron) 10 mg 1X ONCE IVP Last administered on 04/22/20at 17:34; Start 04/22/20 at 17:30; Stop 04/22/20 at 17:31; Status DC Dextrose (Dextrose 50%-Water Syringe) 12.5 gm PRN Q15MIN PRN IV SEE COMMENTS; Start 04/22/20 at 17:15 Enoxaparin Sodium (Lovenox 40mg Syringe) 40 mg Q24H SQ ; Start 04/22/20 at 17:15; Status UNV Enoxaparin Sodium (Lovenox Per Pharmacy Treatment Dosing) 1 each PRN DAILY PRN MC SEE COMMENTS; Start 04/22/20 at 17:30; Status UNV Heparin Sodium (Porcine) (Heparin Sodium) 5,000 unit Q8HRS SQ Last administered on 04/23/20at 05:36; Start 04/22/20 at 22:00 Info (PHARMACY MONITORING -- do not chart) 1 each PRN DAILY PRN MC SEE COM MENTS; Start 04/22/20 at 17:45 Info (PHARMACY MONITORING -- do not chart) 1 each PRN DAILY PRN MC SEE COMMENTS; Start 04/22/20 at 17:45; Status UNV Insulin Human Lispro (HumaLOG) 0-7 UNITS TIDWMEALS SQ Last administered on 04/22/20at 17:49; Start 04/22/20 at 18:00 Isosorbide Mononitrate (Imdur) 60 mg DAILY PO Last administered on 04/23/20at 08:38; Start 04/23/20 at 09:00 Labetalol HCl (Trandate) 200 mg BID PO Last administered on 04/23/20at 08:37; Start 04/22/20 at 21:00 Losartan Potassium (Cozaar) 100 mg DAILY PO Last administered on 04/23/20at 08:38; Start 04/23/20 at 09:00 Metronidazole 100 ml @ 100 mls/hr 1X ONCE IV ; Start 04/22/20 at 10:45; Stop 04/22/20 at 10:53; Status DC Morphine Sulfate (Morphine Sulfate) 2 mg PRN Q2HR PRN IV PAIN Last administered on 04/22/20at 22:03; Start 04/22/20 at 11:30; Stop 04/23/20 at 11:29 Ondansetron HCl (Zofran) 4 mg PRN Q8HRS PRN IV NAUSEA/VOMITING; Start 04/22/20 at 11:30; Stop 04/23/20 at 11:29 Sevelamer Carbonate (Renvela) 800 mg TIDWMEALS PO Last administered on 04/23/20at 08:37; Start 04/23/20 at 08:00 Sodium Bicarbonate (Sodium Bicarbonate) 650 mg TID PO Last administered on 04/23/20at 08:38; Start 04/22/20 at 21:00 Sodium Chloride 1,000 ml @ 400 mls/hr Q2H30M PRN IV PATENCY; Start 04/22/20 at 17:45; Stop 04/23/20 at 05:44; Status DC Sodium Chloride 1,000 ml @ 1,000 mls/hr Q1H PRN IV hypotension; Start 04/22/20 at 17:45; Stop 04/22/20 at 23:44; Status DC Vancomycin HCl (Vanco Per Pharmacy) 1 each PRN DAILY PRN MC SEE COMMENTS; St art 04/22/20 at 10:45; Stop 04/22/20 at 16:48; Status DC Vancomycin HCl (Vanco Per Pharmacy) 1 each PRN DAILY PRN MC SEE COMMENTS Last administered on 04/22/20at 17:04; Start 04/23/20 at 17:00 Vancomycin HCl (Vancomycin Random Level) 1 each 1X ONCE MC ; Start 04/23/20 at 06:00; Stop 04/23/20 at 06:01; Status DC Vancomycin HCl 2 gm/Sodium Chloride 500 ml @ 250 mls/hr 1X ONCE IV Last administered on 04/22/20at 12:35; Start 04/22/20 at 11:00; Stop 04/22/20 at 12:59; Status DC Vitamin B Complex/ Vitamin C (Amaya-Shabana) 1 tab DAILY PO Last administered on 04/23/20at 08:37; Start 04/23/20 at 09:00 Vitals/I & O Vital Sign - Last 24 Hours 04/22/20 04/22/20 04/22/20 04/22/20 09:09 09:16 09:21 09:29 Pulse 157 163 139 Resp 43 32 B/P (MAP) 130/82 (98) 130/82 165/85 (111) Pulse Ox 97 96 94 O2 Delivery BiPAP/CPAP BiPAP/CPAP BiPAP/CPAP 04/22/20 04/22/20 04/22/20 04/22/20 09:35 10:29 11:37 12:29 Pulse 145 134 124 Resp 33 B/P (MAP) 165/85 140/75 (96) 132/69 (90) Pulse Ox 93 96 93 O2 Delivery BiPAP/CPAP BiPAP/CPAP BiPAP/CPAP 04/22/20 04/22/20 04/22/20 04/22/20 12:59 13:34 13:59 14:30 Temp 97.2 97.2 Pulse 124 110 112 Resp 30 30 28 B/P (MAP) 152/85 (107) 179/107 (131) 151/83 (105) 197/85 (122) Pulse Ox 91 91 92 O2 Delivery BiPAP/CPAP BiPAP/CPAP BiPAP/CPAP 04/22/20 04/22/20 04/22/20 04/22/20 14:45 15:00 15:00 15:15 Pulse 106 114 108 Resp 20 20 20 B/P (MAP) 177/77 (110) 166/77 (106) Pulse Ox 89 88 89 O2 Delivery Nasal Cannula Nasal Cannula Venturi Mask Nasal Cannula O2 Flow Rate 5.0 5.0 15.0 5.0 04/22/20 04/22/20 04/22/20 04/22/20 15:30 16:00 16:30 17:00 Pulse 108 110 112 Resp 24 B/P (MAP) 162/81 (108) 137/73 (94) 145/56 (85) Pulse Ox 90 94 94 94 O2 Delivery Venturi Mask Venturi Mask Venturi Mask Venturi Mask O2 Flow Rate 15.0 15.0 15.0 15.0 04/22/20 04/22/20 04/22/20 04/22/20 17:00 18:00 19:00 19:59 Pulse 96 92 88 Resp 24 B/P (MAP) 105/71 (82) 92/67 (75) 129/70 (89) Pulse Ox 95 94 93 O2 Delivery Venturi Mask Venturi Mask Venturi Mask Venturi Mask O2 Flow Rate 15.0 15.0 15.0 15.0 04/22/20 04/22/20 04/22/20 04/22/20 20:00 21:00 21:36 22:00 Temp 98.0 98.0 Pulse 130 74 90 87 Resp 24 B/P (MAP) 135/73 (93) 134/78 (96) 155/72 113/68 (83) Pulse Ox 92 91 93 O2 Delivery Venturi Mask Venturi Mask Venturi Mask O2 Flow Rate 15.0 15.0 15.0 04/22/20 04/22/20 04/22/20 04/22/20 22:03 22:33 23:00 23:47 Pulse 60 Resp 22 18 24 B/P (MAP) 91/60 (70) Pulse Ox 93 95 95 O2 Delivery Venturi Mask Venturi Mask Venturi Mask Venturi Mask O2 Flow Rate 15.0 15.0 04/23/20 04/23/20 04/23/20 04/23/20 00:00 01:00 01:59 03:00 Temp 97.2 97.2 Pulse 65 69 68 62 Resp 24 B/P (MAP) 91/62 (72) 97/62 (74) 104/44 (64) 102/53 (69) Pulse Ox 95 91 92 96 O2 Delivery Venturi Mask Venturi Mask Venturi Mask Venturi Mask O2 Flow Rate 15.0 15.0 15.0 15.0 04/23/20 04/23/20 04/23/20 04/23/20 03:55 04:00 05:00 06:00 Pulse 63 71 65 Resp 24 24 24 B/P (MAP) 101/60 (74) 114/52 (72) 109/61 (77) Pulse Ox 96 94 94 O2 Delivery Venturi Mask Venturi Mask Venturi Mask Venturi Mask O2 Flow Rate 15.0 15.0 15.0 15.0 04/23/20 04/23/20 04/23/20 04/23/20 07:00 08:37 08:38 08:38 Pulse 62 72 75 75 Resp 16 B/P (MAP) 123/58 (79) 125/63 125/63 125/63 Pulse Ox 91 O2 Delivery Venturi Mask O2 Flow Rate 15.0 Intake and Output 0 04/22/20 04/22/20 04/23/20 15:00 23:00 07:00 Intake Total 100 ml 278 ml Output Total 0 ml 0 ml Balance 100 ml 278 ml Justifications for Admission Other Justification YARELIS FONTENOT MD Apr 23, 2020 08:55
[2020-04-23] MEDS: INSULIN LISPRO 300 UNITS/3 ML VIAL. SQ SCH ×3 (09:04→17:54)
[2020-04-23] MEDS ORDERED: DIALYSIS PATIENT. MC PRN ×2 (10:00)
[2020-04-23] MEDS ORDERED: IV NORMAL SALINE 1000ML BAG 1,000 ML IV PRN (10:00)
[2020-04-23] MEDS: VANCOMYCIN PER PHARMACY MC PRN (10:06)
--- NOTE | 2020-04-23 10:08 | NUR ---
Pharmacy Vancomycin Dosing Note S: Consulted to monitor and dose vancomycin started 04/22/20. O: DENNIS HAMMONDS is a 54 year old F with possible PNA, COVID?, EMPIRIC TREATMENT. Other Antibiotics: AZITHROMCYIN 500 MG X 1, 250 MG DAILY X 4 DAYS CEFEPIME 2G IV X 1 DOSE IN ER LABS: Last BUN: 60 Last Creatinine: 4.4 Creatinine Clearance: ESRD on HD TTS mL/min Last WBC: 11.5 Last Procalcitonin: - Tmax (past 24 hours): 98.1 Microbiology: BLOOD CX IN PROCESS Drug Levels: Last Random level: 16.9 on 04/23/20 at 0917 Last dose given 04/22/20 at 1235 Target Trough: 15-20 A: Based on: VANCO dosing guidelines P: 1. Continue Vancomycin 500 mg IV after Dialysis TuThSa 2. Follow up Random level if needed 3. Pharmacy will continue to monitor, follow and adjust therapy as needed. VIDAL JOHNSON [facility], 04/23/20 [id number]
[2020-04-23] MEDS ORDERED: REMDESIVIR LOAD in IV NORMAL SALINE 250ML TV IV ONE (11:00)
[2020-04-23] MEDS ORDERED: HEPARIN for IV BOLUS 10,000 UNIT/10 ML VIAL. IV PRN ×2 (11:00)
[2020-04-23] MEDS: HEPARIN 25,000UTS/250ML PREMIX 250 ML IV PRN ×2 (11:36→23:59)
--- NOTE | 2020-04-23 12:33 | PDOC ---
PAUL MARTIN TRAFFIC REPRESENTATIVE 04/23/20 1233: CARDIO Progress Notes Date and Time Date of Service 04/23/20 Time of Evaluation 1210 Subjective Subjective: Other (not more SOA. on ventimask ) Vitals Vitals Vital Signs Date Time Temp Pulse Resp B/P (MAP) Pulse Ox O2 Delivery O2 Flow Rate FiO2 04/23/20 11:00 66 16 111/62 (78) 91 Venturi Mask 15.0 04/23/20 08:00 96.8 96.8 Weight Weight [ ] Input and Output Intake and Output Intake and Output 04/23/20 07:00 Intake Total 378 ml Output Total 0 ml Balance 378 ml Intake Oral 300 ml IV Total 78 ml Output Urine Total 0 ml Laboratory Labs Laboratory Tests Test 04/22/20 16:25 04/22/20 17:40 04/22/20 18:40 04/23/20 08:51 Lactic Acid Level 1.7 mmol/L (0.4-2.0) Glucose (Fingerstick) 256 mg/dL (70-99) 224 mg/dL (70-99) Troponin I Quantitative 0.878 ng/mL (0.000-0.055) Test 04/23/20 09:17 Random Vancomycin Level 16.9 mcg/mL Microbiology Micro Microbiology 04/22/20 Blood Culture - Preliminary, Resulted NO GROWTH AFTER 1 DAY Physical Exam HEENT: Neck Supple W Full Motion Chest: Symmetric LUNGS: Other (ventimask ) Heart: irregularly irregular (AFIB, rate controlled near 65) Abdomen: Other (obese ) Extremities: Other (trace bilateral LE edema ) Neurology: alert, follow commands Assessment Assessment 1. Acute respiratory failure with COVID PNA. Remdesivir, Decadron initiated 2. Acute on chronic diastolic CHF; Echo 08/13 with preserved LV systolic function 3. ESRD on HD 4. Mild troponin elevation; highest 0.8. Most probable type II, demand ischemia. CP free. 5. CAD; recent cath as noted above. Diffused LAD disease with fixed defect on MPI. No lesions needing intervention. 6. Leukocytosis, lactic acidosis 7. Accelerated HTN; improved 8. PAFIB with RVR upon arrival; off Cardizem gtt. rate controlled. on heparin gtt 9. Diabetes, II 10. Hyperlipidemia 11. Morbid obesity 12. LE PAD: no claudications or wounds. 13. Thrombocytopenia Recommendations ASA, statin, Imdur Add low-dose metoprolol for rate control Fluid offloading via HD Secondary prevention measures Anticoagulated with heparin. Monitor PLTs Justicifation of Admission Dx: Justifications for Admission: Justification of Admission Dx: Yes Comments: Acute respiratory failure, COVID PNA CHF FATOU LOPEZ MD 04/23/20 1723: CARDIO Progress Notes Assessment Assessment Patient seen and evaluated I agree with our nurse practitioners assessment and plan. Acute respiratory failure with COVID PNA. Remdesivir, Decadron initiated. Followed by ID and pulmonary. Acute on chronic diastolic CHF; Echo 08/13 with preserved LV systolic function ESRD on HD as per renal Mild troponin elevation; highest 0.8. Consistent with demand ischemia. CP free. CAD; recent cath as noted above. Diffused distal LAD disease with fixed defect on MPI in the LAD region. No lesions needing intervention. Accelerated HTN; improved PAFIB with RVR upon arrival; off Cardizem gtt. rate controlled. on heparin gtt Diabetes, II Hyperlipidemia LE PAD: no claudications or wounds. PAUL MARTIN APRN Apr 23, 2020 12:33 FATOU LOPEZ MD Apr 23, 2020 17:23
--- NOTE | 2020-04-23 13:39 | PDOC ---
DATE OF SERVICE DATE: 04/23/20 TIME: 13:36 SUBJECTIVE ROS states feeling better OBJECTIVE Vital Signs Vital Signs Date Time Temp Pulse Resp B/P (MAP) Pulse Ox O2 Delivery O2 Flow Rate FiO2 04/23/20 12:00 97.7 83 16 118/68 (85) 90 Venturi Mask 15.0 97.7 I & 0 Intake and Output 04/23/20 07:00 Intake Total 378 ml Output Total 0 ml Balance 378 ml Intake Oral 300 ml IV Total 78 ml Output Urine Total 0 ml PHYSICAL EXAM Physical Exam GEN: Propped up in bed, NAD HEEN OM moist, On O2 Venturi mask NECK: supple CVS: S1S2 RESP: Crackles +, Non labored GI: Soft, NT : No CVA tenderness, No Suprapubic Tenderness NEURO Ax3, grossly normal SKIN No Rash EXT mild LE edema DIAGNOSIS/ASSESSMENT Assessment & Plan ESRD- on HD TTS since July 2019 Last OP Dialysis was on 04/21(holiday schedule) with 1.5 lts UF , Dialyzed last evening as well with UF 3 Lts Seen on Dialysis today, tolerating well, continue as ordered, Parvez Zepeda Cxr POA - progressive airspace opacities on the right more so than left from 04/15/2020. There may be a right pleural effusion. In the setting of cardiomediastinal silhouette enlargement, interstitial/alveolar edema should be considered though multifocal pneumonia is possible as well. Ac Resp Failure- Positive for CoVid at the dialysis unit, / Pneumonia . CoVID 19 diagnosed recently COMMENT/RELEVANT DATA Meds Current Medications Medications (Trade) Dose Ordered Sig/Joshua Start Time Stop Time Status Last Admin Dose Admin Albumin Human 200 ml @ 200 mls/hr 1X PRN PRN 04/22/20 17:45 04/22/20 23:44 DC Aspirin (Ecotrin) 81 mg DAILYWBKFT 04/23/20 08:00 04/23/20 08:38 81 MG Atorvastatin Calcium (Lipitor) 40 mg QHS 04/22/20 21:00 04/22/20 21:35 40 MG Azithromycin 250 ml @ 250 mls/hr 1X ONCE 04/22/20 11:00 04/22/20 11:59 DC 04/22/20 17:05 250 MLS/HR Azithromycin 250 mg/Sodium Chloride 250 ml @ 250 mls/hr Q24H 04/23/20 17:00 04/26/20 17:00 Aztreonam (Azactam) 2 gm 1X ONCE 04/22/20 10:45 04/22/20 10:53 DC Cefepime HCl (Maxipime) 1 gm Q24H 04/23/20 09:00 04/23/20 08:38 1 GM Dexamethasone (Decadron) 6 mg DAILYWBKFT 04/23/20 08:00 04/23/20 08:38 6 MG Dexamethasone Sodium Phosphate (Decadron) 10 mg 1X ONCE 04/22/20 17:30 04/22/20 17:31 DC 04/22/20 17:34 10 MG Dextrose (Dextrose 50%-Water Syringe) 12.5 gm PRN Q15MIN PRN 04/22/20 17:15 Diltiazem HCl (Cardizem Iv Push) 20 mg 1X ONCE 04/22/20 08:30 04/22/20 08:33 DC 04/22/20 09:21 20 MG Diltiazem HCl 125 mg/Sodium Chloride 125 ml @ 5 mls/hr CONT PRN 04/22/20 08:45 04/23/20 01:56 15 MLS/HR Enoxaparin Sodium (Lovenox 40mg Syringe) 40 mg Q24H 04/22/20 17:15 UNV Enoxaparin Sodium (Lovenox Per Pharmacy Treatment Dosing) 1 each PRN DAILY PRN 04/22/20 17:30 UNV Furosemide (Lasix) 60 mg 1X ONCE 04/22/20 08:45 04/22/20 08:46 DC 04/22/20 09:25 60 MG Guaifenesin/ Codeine Phosphate (Robitussin Ac) 10 ml PRN Q6HRS PRN 04/22/20 08:45 04/22/20 09:38 10 ML Heparin Sodium (Porcine) (Heparin Sodium) 1,600 unit PRN Q6HRS PRN 04/23/20 11:00 Heparin Sodium/ Dextrose 250 ml @ 20 mls/hr CONT PRN 04/23/20 11:00 04/23/20 11:36 17 MLS/HR Info (PHARMACY MONITORING -- do not chart) 1 each PRN DAILY PRN 04/23/20 10:00 UNV Insulin Human Lispro (HumaLOG) 0-7 UNITS TIDWMEALS 04/22/20 18:00 04/23/20 09:04 4 UNITS Isosorbide Mononitrate (Imdur) 60 mg DAILY 04/23/20 09:00 04/23/20 08:38 60 MG Labetalol HCl (Trandate) 200 mg BID 04/22/20 21:00 04/23/20 08:37 200 MG Lactobacillus Rhamnosus (Culturelle) 1 cap BID 04/23/20 21:00 Losartan Potassium (Cozaar) 100 mg DAILY 04/23/20 09:00 04/23/20 08:38 100 MG Metronidazole 100 ml @ 100 mls/hr 1X ONCE 04/22/20 10:45 04/22/20 10:53 DC Morphine Sulfate (Morphine Sulfate) 2 mg PRN Q2HR PRN 04/22/20 11:30 04/23/20 11:29 DC 04/22/20 22:03 2 MG Nitroglycerin (Nitro-Bid Oint) 1.5 inch 1X ONCE 04/22/20 08:30 04/22/20 08:33 DC 04/22/20 09:35 1 INCH Nitroglycerin/ Dextrose 250 ml @ 0 mls/hr 1X ONCE 04/22/20 08:30 04/22/20 08:39 DC Ondansetron HCl (Zofran) 4 mg PRN Q8HRS PRN 04/22/20 11:30 04/23/20 11:29 DC 04/23/20 09:04 4 MG Remdesivir 100 mg/ Sodium Chloride 230 ml @ 460 mls/hr Q24H 04/24/20 11:00 04/27/20 11:29 Remdesivir 200 mg/ Sodium Chloride 210 ml @ 210 mls/hr 1X ONCE 04/23/20 11:00 04/23/20 11:59 DC Sevelamer Carbonate (Renvela) 800 mg TIDWMEALS 04/23/20 08:00 04/23/20 08:37 800 MG Sodium Bicarbonate (Sodium Bicarbonate) 650 mg TID 04/22/20 21:00 04/23/20 08:38 650 MG Sodium Chloride 1,000 ml @ 1,000 mls/hr Q1H PRN 04/23/20 10:00 04/23/20 15:59 Vancomycin HCl (Vanco Per Pharmacy) 1 each PRN DAILY PRN 04/23/20 17:00 04/23/20 10:06 1 EACH Vancomycin HCl (Vancomycin Random Level) 1 each 1X ONCE 04/23/20 06:00 04/23/20 06:01 DC 04/23/20 06:00 1 EACH Vancomycin HCl 500 mg/Sodium Chloride 100 ml @ 100 mls/hr QTUTHSA 04/23/20 16:00 Vancomycin HCl 2 gm/Sodium Chloride 500 ml @ 250 mls/hr 1X ONCE 04/22/20 11:00 04/22/20 12:59 DC 04/22/20 12:35 250 MLS/HR Vitamin B Complex/ Vitamin C (Amaya-Shabana) 1 tab DAILY 04/23/20 09:00 04/23/20 08:37 1 TAB Lab Laboratory Tests Test 04/22/20 16:25 04/22/20 17:40 04/22/20 18:40 04/23/20 08:51 Lactic Acid Level 1.7 mmol/L (0.4-2.0) Glucose (Fingerstick) 256 mg/dL (70-99) 224 mg/dL (70-99) Troponin I Quantitative 0.878 ng/mL (0.000-0.055) Test 04/23/20 09:17 04/23/20 13:06 Random Vancomycin Level 16.9 mcg/mL Glucose (Fingerstick) 191 mg/dL (70-99) Results All relevant outside records, renal labs, imaging studies, telemetry/EKG's were reviewed. Justicifation of Admission Dx: Justifications for Admission: Justification of Admission Dx: N/A HIMANSHU MCGOVERN MD Apr 23, 2020 13:39
[2020-04-23 14:20] LABS: PROTHROMBIN TIME PATIENT 17.5 SEC (11.7-14.0)
--- NOTE | 2020-04-23 14:57 | PDOC ---
PULMONARY PROGRESS NOTES DATE: 04/23/20 TIME: 14:51 Vitals Vital Signs Date Time Temp Pulse Resp B/P (MAP) Pulse Ox O2 Delivery O2 Flow Rate FiO2 04/23/20 12:00 97.7 83 16 118/68 (85) 90 Venturi Mask 15.0 97.7 Labs Laboratory Tests Test 04/22/20 08:28 04/22/20 09:00 04/22/20 09:20 04/22/20 16:25 White Blood Count 11.5 x10^3/uL (4.0-11.0) Red Blood Count 3.76 x10^6/uL (3.50-5.40) Hemoglobin 10.5 g/dL (12.0-15.5) Hematocrit 32.5 % (36.0-47.0) Mean Corpuscular Volume 87 fL (79-100) Mean Corpuscular Hemoglobin 28 pg (25-35) Mean Corpuscular Hemoglobin Concent 32 g/dL (31-37) Red Cell Distribution Width 17.5 % (11.5-14.5) Platelet Count 112 x10^3/uL (140-400) Neutrophils (%) (Auto) 88 % (31-73) Lymphocytes (%) (Auto) 7 % (24-48) Monocytes (%) (Auto) 5 % (0-9) Eosinophils (%) (Auto) 0 % (0-3) Basophils (%) (Auto) 0 % (0-3) Neutrophils # (Auto) 10.1 x10^3/uL (1.8-7.7) Lymphocytes # (Auto) 0.8 x10^3/uL (1.0-4.8) Monocytes # (Auto) 0.5 x10^3/uL (0.0-1.1) Eosinophils # (Auto) 0.0 x10^3/uL (0.0-0.7) Basophils # (Auto) 0.0 x10^3/uL (0.0-0.2) Segmented Neutrophils % 88 % (35-66) Band Neutrophils % 7 % (0-9) Lymphocytes % 3 % (24-48) Monocytes % 2 % (0-10) Platelet Estimate Decreased (ADEQUATE) Large Platelets Present Anisocytosis Present Prothrombin Time 17.9 SEC (11.7-14.0) Prothromb Time International Ratio 1.5 (0.8-1.1) Activated Partial Thromboplast Time 33 SEC (24-38) Sodium Level 134 mmol/L (136-145) Potassium Level 4.0 mmol/L (3.5-5.1) Chloride Level 94 mmol/L (98-107) Carbon Dioxide Level 21 mmol/L (21-32) Anion Gap 19 (6-14) Blood Urea Nitrogen 60 mg/dL (7-20) Creatinine 4.4 mg/dL (0.6-1.0) Estimated GFR (Cockcroft-Gault) 10.4 Glucose Level 314 mg/dL (70-99) Lactic Acid Level 7.9 mmol/L (0.4-2.0) 1.7 mmol/L (0.4-2.0) Calcium Level 9.3 mg/dL (8.5-10.1) Magnesium Level 2.3 mg/dL (1.8-2.4) Total Bilirubin 1.8 mg/dL (0.2-1.0) Direct Bilirubin 0.6 mg/dL (0.0-0.2) Aspartate Amino Transf (AST/SGOT) 39 U/L (15-37) Alanine Aminotransferase (ALT/SGPT) 32 U/L (14-59) Alkaline Phosphatase 101 U/L (46-116) Creatine Kinase 58 U/L (26-192) Troponin I Quantitative 0.326 ng/mL (0.000-0.055) PK-Iyb-U-Type Natriuretic Peptide > 90633 pg/mL (0-124) Total Protein 7.5 g/dL (6.4-8.2) Albumin 3.1 g/dL (3.4-5.0) Ethyl Alcohol Level < 10 mg/dL (0-10) O2 Saturation 91 % (92-99) Arterial Blood pH 7.41 (7.35-7.45) Arterial Blood pCO2 at Patient Temp 32 mmHg (35-46) Arterial Blood pO2 at Patient Temp 69 mmHg (75-108) Arterial Blood HCO3 20 mmol/L (21-28) Arterial Blood Base Excess -4 mmol/L (-3-3) FiO2 2.5 lpm nc Influenza Type A Antigen Negative (NEGATIVE) Influenza Type B Antigen Negative (NEGATIVE) Test 04/22/20 17:40 04/22/20 18:40 04/23/20 08:51 04/23/20 09:17 Glucose (Fingerstick) 256 mg/dL (70-99) 224 mg/dL (70-99) Troponin I Quantitative 0.878 ng/mL (0.000-0.055) Random Vancomycin Level 16.9 mcg/mL Test 04/23/20 13:06 04/23/20 13:30 Glucose (Fingerstick) 191 mg/dL (70-99) Prothrombin Time 17.5 SEC (11.7-14.0) Prothromb Time International Ratio 1.5 (0.8-1.1) Activated Partial Thromboplast Time 49 SEC (24-38) Laboratory Tests Test 04/22/20 16:25 04/22/20 17:40 04/22/20 18:40 04/23/20 08:51 Lactic Acid Level 1.7 mmol/L (0.4-2.0) Glucose (Fingerstick) 256 mg/dL (70-99) 224 mg/dL (70-99) Troponin I Quantitative 0.878 ng/mL (0.000-0.055) Test 04/23/20 09:17 04/23/20 13:06 04/23/20 13:30 Random Vancomycin Level 16.9 mcg/mL Glucose (Fingerstick) 191 mg/dL (70-99) Prothrombin Time 17.5 SEC (11.7-14.0) Prothromb Time International Ratio 1.5 (0.8-1.1) Activated Partial Thromboplast Time 49 SEC (24-38) Medications Active Scripts Medications Dose Route/Sig Max Daily Dose Days Date Category Soliqua 100 Unit-33 Mcg/ml Pen (Insulin Glargine/Lixisenatide) 3 Ml Insuln.pen 3 Ml SQ PRN PRN 02/14/20 Reported Lidocaine-Prilocaine Cream (Lidocaine/Prilocaine) 30 Gm Cream..g. 30 Gm TP PRN PRN 02/14/20 Reported Nephro-Shabana Tablet (Folic Acid/Vitamin B Comp W-C) 0.8 Mg Tablet 1 Tab PO DAILY 02/14/20 Reported Sodium Bicarbonate 650 Mg Tablet 650 Mg PO TID 30 08/09/19 Rx Renvela (Sevelamer Carbonate) 800 Mg Tablet 800 Mg PO TIDWMEALS 30 08/09/19 Rx Aspirin Ec (Aspirin) 81 Mg Tablet. 81 Mg PO DAILYWBKFT 30 08/09/19 Rx Cozaar (Losartan Potassium) 50 Mg Tablet 100 Mg PO DAILY 30 08/09/19 Rx Labetalol Hcl 200 Mg Tablet 200 Mg PO BID 30 08/09/19 Rx Atorvastatin Calcium 40 Mg Tablet 1 Tab PO QHS 03/05/19 Reported Isosorbide Mononitrate Er (Isosorbide Mononitrate) 60 Mg Tab.er.24h 1 Tab PO DAILY 03/12/17 Reported Impression . Full consult dictated acute hypoxemic respiratory failure secondary to COVID-19 viral pneumonia, possible pulmonary embolism. TANJA FISHER MD Apr 23, 2020 14:57
--- NOTE | 2020-04-23 15:11 | NUR ---
SS following for discharge planning. SS reviewed pt chart and discussed with pt RN. Pt is from home with spouse and is currently on venturi mask at 15 liters. COVID19 positive. Pt on IV Azithromycin and Remdesivir. Pt has outpatient dialysis at [facility], ; fax [phone], Wednesday, , and Wednesday. SS will continue to follow for discharge planning.
--- NOTE | 2020-04-23 15:30 | NUR ---
At 1500 pt requested to use bathroom. Bedpan attempted but pt stated she could not use bedpan. Pt ambulated to toilet in the room and began to feel dizzy and lightheaded. While on the toilet pt threw up. BP checked and reading 50/30's. Fluid bolus initiated and pt placed in recliner. RNx4 got pt back into bed with feet elevated. Pt lethargic but still answering questions. Most recent BP reading 97/54.
[2020-04-23] MEDS: VANCOMYCIN 500 MG in IV NORMAL SALINE 100ML 100 ML IV SCH (16:24)
--- NOTE | 2020-04-23 16:36 | CONS ---
DATE OF CONSULTATION: 04/23/2020 ATTENDING PHYSICIAN: Serena Colon MD REASON FOR CONSULTATION: The patient is seen in pulmonary consultation at the request of Dr. Colon for acute hypoxemic respiratory failure secondary to COVID-19 viral pneumonia. HISTORY OF PRESENT ILLNESS: The patient is a 54-year-old that tested positive approximately 2 weeks ago. At that time, she mainly had symptoms of nausea and emesis. No fever, no body aches. She was seen in Dr. Colon's office last week for increasing shortness of breath, requiring oxygen and placed on dexamethasone. He offered the patient to be admitted, she declined. She came back now because of increasing shortness of breath. She is in the intensive care unit on Venturi mask. She feels short of breath. She has a cough, mostly nonproductive. X-ray revealed bilateral pulmonary infiltrates. There is also consolidation of right lower lobe. She is currently receiving IV antibiotics along with remdesivir and dexamethasone. PAST MEDICAL HISTORY: No history of COPD. She has had previous hysterectomy, dialysis catheter. She is on hemodialysis secondary to hypertension and diabetes. FAMILY HISTORY: Diabetes and heart disease. SOCIAL HISTORY: She denies any tobacco use or drugs. ALLERGIES: SULFA. REVIEW OF SYSTEMS: Unobtainable secondary to the patient's condition. CURRENT MEDICATIONS: List was reviewed. PHYSICAL EXAMINATION: VITAL SIGNS: Stable. O2 saturation was greater than 92%. LUNGS: Scattered rhonchi. CARDIOVASCULAR: Regular rate and rhythm with S1, S2, no S3. ABDOMEN: Soft, nontender. EXTREMITIES: No clubbing, cyanosis or edema. NEUROLOGICAL: The patient was awake, alert, following commands. A detailed neuro exam was not performed. LABORATORY DATA: Influenza screen was negative. Toxicology screen was negative for ethyl alcohol. Electrolytes were noted. White count was elevated. Hemoglobin and hematocrit chronically low. Arterial blood gas: pH of 7.41, PaCO2 of 32, pO2 of 69. Echocardiogram in the past revealed EF of 50-55%. Cardiac catheterization on 02/13/2020 revealed diffuse disease. IMPRESSION: 1. Acute hypoxemic respiratory failure secondary to COVID-19 viral pneumonia. 2. COVID-19 viral pneumonia. 3. Possible bacterial pneumonia. 4. Rule out pulmonary embolism. 5. Bilateral pulmonary infiltrates compatible with viral pneumonia, possible bacterial pneumonia. 6. Renal failure. 7. Diabetes. 8. Hypertension. PLAN: 1. Continue current support with IV dexamethasone, remdesivir and oxygen supplementation. 2. Empiric antibiotics. 3. CT Angiogram to rule out pulmonary embolism. 4. Consult Nephrology, already performed. 5. Consult Cardiology, already performed. 6. GI and DVT prophylaxis. 7. We will initiate full dose heparin for now until CT angiogram has been obtained to rule out PE. I do appreciate the privilege in sharing in this patient's care. TANJA FISHER MD DR: JAVIER/jamel JOB#: [id number] / [id number]
[2020-04-23] MEDS: METOPROLOL TART IMMED RELEASE 25 MG TABLET. PO SCH ×2 (17:00→17:34)
[2020-04-23] MEDS: AZITHROMYCIN 250 MG in IV NORMAL SALINE 250ML 250 ML IV SCH (17:26)
[2020-04-23] MEDS ORDERED: ONDANSETRON PF 4 MG/2 ML VIAL. ONE ×3 (17:42→18:01)
[2020-04-23] MEDS ORDERED: PROCHLORPERAZINE 10 MG/2 ML VIAL. ONE (18:00)
--- NOTE | 2020-04-23 18:19 | NUR ---
Pt had another episode of vasal vagal. Pt lying in bed and went unresponsive, HR in the 40s, BP low. Dr. Veliz paged and orders received to call back if it happens again, but that he thinks its due to pt vomiting. If this episode happens again, okay to start pt on Dopamine 2.5 w/ no titration.
--- NOTE | 2020-04-23 18:25 | EKG ---
[facility] [address] [place] [address] Test Date: 2020-04-23 Test Time: 18:21:03 Pat Name: DENNIS HAMMONDS Department: Room: 115 1 Gender: F Pattern Attendant: EVA : 1965 Requested By: YARELIS FONTENOT Order Number: [id number] Reading MD: Asael Veliz Measurements Intervals [place] Rate: 84 P: [place]: QRS: -12 QRSD: 90 T: 132 QT: 436 QTc: 519 Interpretive Statements ATRIAL FIBRILLATION LEFTWARD AXIS LVH WITH REPOLARIZATION ABNORMALITY PROLONGED QT ABNORMAL ECG Electronically Signed On 04-30-2020 15:00:38 FIELD SUPERVISOR by Asael Veliz
[2020-04-23] MEDS ORDERED: PROCHLORPERAZINE 10 MG/2 ML VIAL. IM PRN (18:30)
[2020-04-23 18:58] LABS: CALCIUM 8.9 mg/dL (8.5-10.1); GFR 16.2; POTASSIUM 4.2 mmol/L (3.5-5.1)
[2020-04-23 18:59] LABS: MAGNESIUM 2.1 mg/dL (1.8-2.4)
[2020-04-23] MEDS: ATORVASTATIN CALCIUM 40 MG TABLET. PO SCH (20:42)
[2020-04-23] MEDS: LACTOBACILLUS RHAMNOSUS GG 1 CAPSULE. PO SCH (20:42)
--- NOTE | 2020-04-23 23:10 | EKG ---
[facility] [address] [place] [address] Test Date: 2020-04-22 Test Time: 08:06:12 Pat Name: DENNIS HAMMONDS Department: Room: 115 1 Gender: F Pilot Submersible: : 1965 Requested By: CHRISTIANO MIRELES Order Number: [id number] Reading MD: Asael Veliz Measurements Intervals [place] Rate: 145 P: [place]: QRS: -13 QRSD: 86 T: 155 QT: 284 QTc: 444 Interpretive Statements ATRIAL FIBRILLATION WITH RVR LEFTWARD AXIS LVH WITH REPOLARIZATION ABNORMALITY ABNORMAL ECG Electronically Signed On 04-30-2020 15:09:25 B2B OUTSIDE SALES REPRESENTATIVE by Asael Veliz
[2020-04-24] VITALS (26 sets, daily range): BP systolic 63–127; BP diastolic 42–80
[2020-04-24 07:27] LABS: BASO % 1 % (0-3); EOS % 0 % (0-3); HEMATOCRIT 28.4 % (36.0-47.0); HEMOGLOBIN 9.2 g/dL (12.0-15.5); LYMPH # 0.5 x10^3/uL (1.0-4.8); LYMPH % 6 % (24-48); MEAN CORPUSCULAR HEMOGLOBIN 29 pg (25-35); MEAN CORPUSCULAR HGB CONC 33 g/dL (31-37); MEAN CORPUSCULAR VOLUME 88 fL (79-100); MONO # 0.4 x10^3/uL (0.0-1.1); MONO % 4 % (0-9); NEUT # 7.4 x10^3/uL (1.8-7.7); NEUT % 89 % (31-73); PLATELET COUNT 105 x10^3/uL (140-400); RED BLOOD COUNT 3.24 x10^6/uL (3.50-5.40); RED CELL DISTRIBUTION WIDTH 17.6 % (11.5-14.5); WHITE BLOOD COUNT 8.3 x10^3/uL (4.0-11.0)
[2020-04-24 07:41] LABS: CALCIUM 9.2 mg/dL (8.5-10.1); CREATININE 3.6 mg/dL (0.6-1.0); GFR 13.1; POTASSIUM 4.8 mmol/L (3.5-5.1)
[2020-04-24] MEDS: VANCOMYCIN PER PHARMACY MC PRN (07:44)
[2020-04-24 07:49] LABS: ALBUMIN 2.4 g/dL (3.4-5.0); DIRECT BILIRUBIN 0.6 mg/dL (0.0-0.2); TOTAL BILIRUBIN 1.4 mg/dL (0.2-1.0); TOTAL PROTEIN 6.2 g/dL (6.4-8.2)
--- NOTE | 2020-04-24 08:47 | PDOC ---
PROGRESS NOTES Date of Service: DATE: 04/24/20 TIME: 08:47 Subjective Subjective no new problems, weak with ambulation Objective Objective Vital Signs Date Time Temp Pulse Resp B/P (MAP) Pulse Ox O2 Delivery O2 Flow Rate FiO2 04/24/20 06:00 120 16 117/71 (86) 95 Nasal Cannula 15.0 04/24/20 05:00 97.9 97.9 Intake and Output 04/24/20 07:00 Intake Total 1142.9 ml Output Total 0 ml Balance 1142.9 ml Intake Oral 358 ml IV Total 784.9 ml Output Urine Total 0 ml # Voids 1 Physical Exam Abdomen: Soft Heart: Normal S2, Other (AFIB ) Extremities: Normal pulses, Other (trace bilateral LE edema ) General: Alert, Oriented X3, Cooperative, mild distress HEENT: Atraumatic, Mucous membr. moist/pink Lungs: Other (on BIPAP) MUSCULOSKELETAL: Osteoarthritic changes both hands Neuro: Normal speech, Sensation intact Psych/Mental Status: Mental status NL Skin: No significant lesion Diagnosis Problem List Problems Medical Problems: (1) Acute pulmonary edema Status: Acute (2) Acute respiratory failure with hypoxia Status: Acute (3) Atrial fibrillation with RVR Status: Acute (4) COVID-19 Status: Acute (5) NSTEMI (non-ST elevated myocardial infarction) Status: Acute (6) Septic shock Status: Acute Assessment Assessment Problems Medical Problems: (1) Acute pulmonary edema Status: Acute (2) Acute respiratory failure with hypoxia Status: Acute (3) Atrial fibrillation with RVR Status: Acute (4) COVID-19 Status: Acute (5) NSTEMI (non-ST elevated myocardial infarction) Status: Acute (6) Septic shock Status: Acute FINAL IMPRESSION: 1. Shortness of breath, combination of heart failure as well as pneumonia. 2. Recent COVID infection. 3. Coronary artery disease. She has a distal LAD disease, had a cardiac catheterization 07/2019. 4. End-stage renal disease, on hemodialysis. 5. Insulin-dependent diabetes. 6. Diastolic heart failure. 7. Hyperlipidemia. PLAN: CTA today -neg for PE start on remdisivr .spoke with ID DIalysis yesterday on heparin drip ventimask 50% off iv cardizam for a fib. dexamethasome IV antibiotics. zithromax+vanco+cefepime slight nicanor troponin At this time, the patient was admitted to the hospital. Cultures were done, started on broad-spectrum antibiotics, Zithromax given, vancomycin as well as cefepime. Pulmonary is consulted. Cardiology is consulted for atrial fibrillation, put on Cardizem drip and breathing treatments, oxygen, BiPAP and Ventimask and also DVT prophylaxis with Lovenox and see how she responds. The patient is almost more than a week with the COVID. I am not sure remdesivir is going to be any helpful at this point, we will check with Pulmonology. Plan Plan of Care Problems Medical Problems: (1) Acute pulmonary edema Status: Acute (2) Acute respiratory failure with hypoxia Status: Acute (3) Atrial fibrillation with RVR Status: Acute (4) COVID-19 Status: Acute (5) NSTEMI (non-ST elevated myocardial infarction) Status: Acute (6) Septic shock Status: Acute Comment Review of Relevant I have reviewed the following items allen (where applicable) has been applied. Labs Laboratory Tests Test 04/23/20 08:51 04/23/20 09:17 04/23/20 13:06 04/23/20 13:30 Glucose (Fingerstick) 224 mg/dL (70-99) 191 mg/dL (70-99) Troponin I Quantitative 0.315 ng/mL (0.000-0.055) Random Vancomycin Level 16.9 mcg/mL Prothrombin Time 17.5 SEC (11.7-14.0) Prothromb Time International Ratio 1.5 (0.8-1.1) Activated Partial Thromboplast Time 49 SEC (24-38) Test 04/23/20 17:38 04/23/20 18:25 04/24/20 01:38 04/24/20 07:15 Glucose (Fingerstick) 251 mg/dL (70-99) Heparin Anti-Xa Act, Unfractionated 0.30 IU/mL (0.30-0.70) 0.26 IU/mL (0.30-0.70) Sodium Level 137 mmol/L (136-145) 137 mmol/L (136-145) Potassium Level 4.2 mmol/L (3.5-5.1) 4.8 mmol/L (3.5-5.1) Chloride Level 98 mmol/L (98-107) 98 mmol/L (98-107) Carbon Dioxide Level 27 mmol/L (21-32) 29 mmol/L (21-32) Anion Gap 12 (6-14) 10 (6-14) Blood Urea Nitrogen 31 mg/dL (7-20) 42 mg/dL (7-20) Creatinine 3.0 mg/dL (0.6-1.0) 3.6 mg/dL (0.6-1.0) Estimated GFR (Cockcroft-Gault) 16.2 13.1 Glucose Level 293 mg/dL (70-99) 211 mg/dL (70-99) Calcium Level 8.9 mg/dL (8.5-10.1) 9.2 mg/dL (8.5-10.1) Magnesium Level 2.1 mg/dL (1.8-2.4) White Blood Count 8.3 x10^3/uL (4.0-11.0) Red Blood Count 3.24 x10^6/uL (3.50-5.40) Hemoglobin 9.2 g/dL (12.0-15.5) Hematocrit 28.4 % (36.0-47.0) Mean Corpuscular Volume 88 fL (79-100) Mean Corpuscular Hemoglobin 29 pg (25-35) Mean Corpuscular Hemoglobin Concent 33 g/dL (31-37) Red Cell Distribution Width 17.6 % (11.5-14.5) Platelet Count 105 x10^3/uL (140-400) Neutrophils (%) (Auto) 89 % (31-73) Lymphocytes (%) (Auto) 6 % (24-48) Monocytes (%) (Auto) 4 % (0-9) Eosinophils (%) (Auto) 0 % (0-3) Basophils (%) (Auto) 1 % (0-3) Neutrophils # (Auto) 7.4 x10^3/uL (1.8-7.7) Lymphocytes # (Auto) 0.5 x10^3/uL (1.0-4.8) Monocytes # (Auto) 0.4 x10^3/uL (0.0-1.1) Eosinophils # (Auto) 0.0 x10^3/uL (0.0-0.7) Basophils # (Auto) 0.0 x10^3/uL (0.0-0.2) Total Bilirubin 1.4 mg/dL (0.2-1.0) Direct Bilirubin 0.6 mg/dL (0.0-0.2) Aspartate Amino Transf (AST/SGOT) 69 U/L (15-37) Alanine Aminotransferase (ALT/SGPT) 86 U/L (14-59) Alkaline Phosphatase 82 U/L (46-116) Total Protein 6.2 g/dL (6.4-8.2) Albumin 2.4 g/dL (3.4-5.0) Microbiology 04/22/20 Blood Culture - Preliminary, Resulted NO GROWTH AFTER 2 DAYS Medications Current Medications Azithromycin 250 mg/Sodium Chloride 250 ml @ 250 mls/hr Q24H IV Last administered on 04/23/20at 17:26; Start 04/23/20 at 17:00; Stop 04/26/20 at 17:00 Cefepime HCl (Maxipime) 1 gm Q24H IVP Last administered on 04/23/20at 08:38; Start 04/23/20 at 09:00 Heparin Sodium (Porcine) (Heparin Sodium) 1,600 unit PRN Q6HRS PRN IV FOR UFH LEVEL 0.2 - 0.29 Last administered on 04/24/20at 02:18; Start 04/23/20 at 11:00 Heparin Sodium (Porcine) (Heparin Sodium) 3,200 unit PRN Q6HRS PRN IV FOR UFH LEVEL LESS THAN 0.2; Start 04/23/20 at 11:00 Heparin Sodium/ Dextrose 250 ml @ 20 mls/hr CONT PRN IV PER PROTOCOL Last administered on 04/23/20at 23:59; Start 04/23/20 at 11:00 Info (PHARMACY MONITORING -- do not chart) 1 each PRN DAILY PRN MC SEE COMMENTS; Start 04/23/20 at 10:00; Status UNV Info (PHARMACY MONITORING -- do not chart) 1 each PRN DAILY PRN MC SEE COMMENTS; Start 04/23/20 at 10:00; Status UNV Isosorbide Mononitrate (Imdur) 60 mg DAILY PO Last administered on 04/23/20at 08:38; Start 04/23/20 at 09:00 Lactobacillus Rhamnosus (Culturelle) 1 cap BID PO Last administered on 04/23/20at 20:42; Start 04/23/20 at 21:00 Losartan Potassium (Cozaar) 100 mg DAILY PO Last administered on 04/23/20at 08:38; Start 04/23/20 at 09:00 Metoprolol Tartrate (Lopressor) 12.5 mg BID PO ; Start 04/23/20 at 17:00 Ondansetron HCl (Zofran) 4 mg STK-MED ONCE .ROUTE ; Start 04/23/20 at 17:42; Stop 04/23/20 at 17:42; Status DC Ondansetron HCl (Zofran) 4 mg STK-MED ONCE .ROUTE ; Start 04/23/20 at 18:01; Stop 04/23/20 at 18:02; Status DC Ondansetron HCl (Zofran) 8 mg STK-MED ONCE .ROUTE ; Start 04/23/20 at 18:00; Stop 04/24/20 at 08:20; Status DC Prochlorperazine Edisylate (Compazine) 5 mg PRN Q6HRS PRN IM NAUSEA/VOMITING; Start 04/23/20 at 18:30 Prochlorperazine Edisylate (Compazine) 10 mg STK-MED ONCE .ROUTE ; Start 04/23/20 at 18:00; Stop 04/24/20 at 08:20; Status DC Remdesivir 100 mg/ Sodium Chloride 230 ml @ 460 mls/hr Q24H IV ; Start 04/24/20 at 11:00; Stop 04/27/20 at 11:29 Remdesivir 200 mg/ Sodium Chloride 210 ml @ 210 mls/hr 1X ONCE IV Last administered on 04/23/20at 14:03; Start 04/23/20 at 11:00; Stop 04/23/20 at 11:59; Status DC Sodium Chloride 1,000 ml @ 1,000 mls/hr Q1H PRN IV hypotension; Start 04/23/20 at 10:00; Stop 04/23/20 at 15:59; Status DC Vancomycin HCl (Vanco Per Pharmacy) 1 each PRN DAILY PRN MC SEE COMMENTS Last administered on 04/24/20at 07:44; Start 04/23/20 at 17:00 Vancomycin HCl 500 mg/Sodium Chloride 100 ml @ 100 mls/hr QTUTHSA IV Last administered on 04/23/20at 16:24; Start 04/23/20 at 16:00 Vitamin B Complex/ Vitamin C (Amaya-Shabana) 1 tab DAILY PO Last administered on 04/23/20at 08:37; Start 04/23/20 at 09:00 Vitals/I & O Vital Sign - Last 24 Hours 04/23/20 04/23/20 04/23/20 04/23/20 09:00 10:00 11:00 12:00 Pulse 76 61 66 Resp 16 16 16 B/P (MAP) 125/64 (84) 100/56 (71) 111/62 (78) Pulse Ox 90 93 91 O2 Delivery Venturi Mask Venturi Mask Venturi Mask Venturi Mask O2 Flow Rate 15.0 15.0 15.0 15.0 04/23/20 04/23/20 04/23/20 04/23/20 12:00 13:00 14:00 15:00 Temp 97.7 97.7 Pulse 83 74 80 72 Resp 16 16 16 16 B/P (MAP) 118/68 (85) 104/60 (75) 139/67 (91) 97/54 (68) Pulse Ox 90 91 89 89 O2 Delivery Venturi Mask Venturi Mask Venturi Mask Venturi Mask O2 Flow Rate 15.0 15.0 15.0 15.0 04/23/20 04/23/20 04/23/20 04/23/20 16:00 16:00 17:00 18:00 Temp 97.7 97.7 Pulse 88 72 79 Resp 16 16 16 B/P (MAP) 112/61 (78) 119/63 (81) 91/59 (70) Pulse Ox 89 88 92 O2 Delivery Venturi Mask Venturi Mask Venturi Mask Nasal Cannula O2 Flow Rate 15.0 15.0 15.0 15.0 04/23/20 04/23/20 04/23/20 04/23/20 19:00 19:52 20:00 20:42 Temp 97.6 97.6 Pulse 87 77 69 Resp 16 16 B/P (MAP) 102/57 (72) 139/73 (95) 120/62 Pulse Ox 93 91 O2 Delivery Nasal Cannula Venturi Mask Nasal Cannula O2 Flow Rate 15.0 15.0 15.0 04/23/20 04/23/20 04/23/20 04/24/20 21:00 21:52 22:59 00:00 Temp 98.0 98.0 Pulse 83 80 87 94 Resp 16 16 16 16 B/P (MAP) 116/61 (79) 105/56 (72) 111/59 (76) 114/65 (81) Pulse Ox 90 92 94 96 O2 Delivery Nasal Cannula Nasal Cannula Nasal Cannula Nasal Cannula O2 Flow Rate 15.0 15.0 15.0 15.0 04/24/20 04/24/20 04/24/20 04/24/20 00:00 00:52 01:53 02:57 Pulse 90 100 96 Resp 16 16 16 B/P (MAP) 118/62 (80) 127/78 (94) 115/68 (84) Pulse Ox 92 96 92 O2 Delivery Venturi Mask Nasal Cannula Nasal Cannula Nasal Cannula O2 Flow Rate 15.0 15.0 15.0 15.0 04/24/20 04/24/20 04/24/20 04/24/20 04:00 04:00 05:00 06:00 Temp 97.9 97.9 Pulse 99 108 120 Resp 16 16 16 B/P (MAP) 87/55 (66) 108/64 (79) 117/71 (86) Pulse Ox 95 93 95 O2 Delivery Nasal Cannula Venturi Mask Nasal Cannula Nasal Cannula O2 Flow Rate 15.0 15.0 15.0 15.0 Intake and Output0 04/23/20 04/23/20 04/24/20 15:00 23:00 07:00 Intake Total 358 ml 407.9 ml 377 ml Output Total 0 ml 0 ml Balance 358 ml 407.9 ml 377 ml Justifications for Admission Other Justification YARELIS FONTENOT MD Apr 24, 2020 08:47
[2020-04-24] MEDS: LOSARTAN POTASSIUM 50 MG TABLET. PO SCH (08:55)
[2020-04-24] MEDS: SODIUM BICARBONATE 650 MG TABLET. PO SCH ×3 (08:56→20:23)
[2020-04-24] MEDS: CEFEPIME HCL IV Push 1 GM VIAL. IVP SCH (08:56)
[2020-04-24] MEDS: ISOSORBIDE MONONITRATE ER 30 MG TAB.ER.24H PO SCH (08:56)
[2020-04-24] MEDS: SEVELAMER CARBONATE 800 MG TABLET. PO SCH ×3 (08:56→17:20)
[2020-04-24] MEDS: DEXAMETHASONE 4 MG TABLET PO SCH (08:57)
[2020-04-24] MEDS: ASPIRIN ENTERIC COATED 81 MG TABLET.DR. PO SCH (08:57)
[2020-04-24] MEDS: FOLIC/VIT B COMP W-C (RENAL) TABLET. PO SCH (08:57)
[2020-04-24] MEDS: LABETALOL HCL 200 MG TABLET PO SCH ×2 (08:57→20:24)
[2020-04-24] MEDS: METOPROLOL TART IMMED RELEASE 25 MG TABLET. PO SCH ×2 (08:58→20:24)
[2020-04-24] MEDS: LACTOBACILLUS RHAMNOSUS GG 1 CAPSULE. PO SCH ×2 (08:58→20:23)
[2020-04-24] MEDS: INSULIN LISPRO 300 UNITS/3 ML VIAL. SQ SCH ×3 (08:59→17:30)
--- NOTE | 2020-04-24 10:02 | PDOC ---
PAUL MARTIN MEDICAL LAB SCIENTIST 04/24/20 1002: CARDIO Progress Notes Date and Time Date of Service 04/24/20 Time of Evaluation 0940 Subjective Subjective: Other (not more SOA. on ventimask ) Comments: brief period of unresponsiveness yesterday evening getting up to chair Vitals Vitals Vital Signs Date Time Temp Pulse Resp B/P (MAP) Pulse Ox O2 Delivery O2 Flow Rate FiO2 04/24/20 09:14 93 Venturi Mask 15.0 04/24/20 09:00 126 20 104/80 (88) 04/24/20 08:00 97.6 97.6 Weight Weight [ ] Input and Output Intake and Output Intake and Output 04/24/20 07:00 Intake Total 1142.9 ml Output Total 0 ml Balance 1142.9 ml Intake Oral 358 ml IV Total 784.9 ml Output Urine Total 0 ml # Voids 1 Laboratory Labs Laboratory Tests Test 04/23/20 13:06 04/23/20 13:30 04/23/20 17:38 04/23/20 18:25 Glucose (Fingerstick) 191 mg/dL (70-99) 251 mg/dL (70-99) Prothrombin Time 17.5 SEC (11.7-14.0) Prothromb Time International Ratio 1.5 (0.8-1.1) Activated Partial Thromboplast Time 49 SEC (24-38) Heparin Anti-Xa Act, Unfractionated 0.30 IU/mL (0.30-0.70) Sodium Level 137 mmol/L (136-145) Potassium Level 4.2 mmol/L (3.5-5.1) Chloride Level 98 mmol/L (98-107) Carbon Dioxide Level 27 mmol/L (21-32) Anion Gap 12 (6-14) Blood Urea Nitrogen 31 mg/dL (7-20) Creatinine 3.0 mg/dL (0.6-1.0) Estimated GFR (Cockcroft-Gault) 16.2 Glucose Level 293 mg/dL (70-99) Calcium Level 8.9 mg/dL (8.5-10.1) Magnesium Level 2.1 mg/dL (1.8-2.4) Test 04/24/20 01:38 04/24/20 07:15 04/24/20 08:47 Heparin Anti-Xa Act, Unfractionated 0.26 IU/mL (0.30-0.70) White Blood Count 8.3 x10^3/uL (4.0-11.0) Red Blood Count 3.24 x10^6/uL (3.50-5.40) Hemoglobin 9.2 g/dL (12.0-15.5) Hematocrit 28.4 % (36.0-47.0) Mean Corpuscular Volume 88 fL (79-100) Mean Corpuscular Hemoglobin 29 pg (25-35) Mean Corpuscular Hemoglobin Concent 33 g/dL (31-37) Red Cell Distribution Width 17.6 % (11.5-14.5) Platelet Count 105 x10^3/uL (140-400) Neutrophils (%) (Auto) 89 % (31-73) Lymphocytes (%) (Auto) 6 % (24-48) Monocytes (%) (Auto) 4 % (0-9) Eosinophils (%) (Auto) 0 % (0-3) Basophils (%) (Auto) 1 % (0-3) Neutrophils # (Auto) 7.4 x10^3/uL (1.8-7.7) Lymphocytes # (Auto) 0.5 x10^3/uL (1.0-4.8) Monocytes # (Auto) 0.4 x10^3/uL (0.0-1.1) Eosinophils # (Auto) 0.0 x10^3/uL (0.0-0.7) Basophils # (Auto) 0.0 x10^3/uL (0.0-0.2) Sodium Level 137 mmol/L (136-145) Potassium Level 4.8 mmol/L (3.5-5.1) Chloride Level 98 mmol/L (98-107) Carbon Dioxide Level 29 mmol/L (21-32) Anion Gap 10 (6-14) Blood Urea Nitrogen 42 mg/dL (7-20) Creatinine 3.6 mg/dL (0.6-1.0) Estimated GFR (Cockcroft-Gault) 13.1 Glucose Level 211 mg/dL (70-99) Calcium Level 9.2 mg/dL (8.5-10.1) Total Bilirubin 1.4 mg/dL (0.2-1.0) Direct Bilirubin 0.6 mg/dL (0.0-0.2) Aspartate Amino Transf (AST/SGOT) 69 U/L (15-37) Alanine Aminotransferase (ALT/SGPT) 86 U/L (14-59) Alkaline Phosphatase 82 U/L (46-116) Total Protein 6.2 g/dL (6.4-8.2) Albumin 2.4 g/dL (3.4-5.0) Glucose (Fingerstick) 219 mg/dL (70-99) Microbiology Micro Microbiology 04/22/20 Blood Culture - Preliminary, Resulted NO GROWTH AFTER 2 DAYS Physical Exam HEENT: Neck Supple W Full Motion Chest: Symmetric LUNGS: Other (ventimask ) Heart: irregularly irregular (AFIB, rate controlled 90-110) Abdomen: Other (obese ) Extremities: Other (trace bilateral LE edema ) Neurology: alert, oriented, follow commands Assessment Assessment 1. Acute respiratory failure with COVID PNA. Remdesivir, Decadron initiated. + approximately 14 days ago. CTA negative for PE 2. Acute on chronic diastolic CHF; Echo 08/13 with preserved LV systolic function 3. ESRD on HD 4. Mild troponin elevation; highest 0.8. Most probable type II, demand ischemia. CP free. 5. CAD; recent cath with diffused LAD disease with fixed defect on MPI. No lesions needing intervention. 6. Leukocytosis, lactic acidosis 7. Accelerated HTN; now hypotensive. 8. PAFIB with RVR upon arrival; off Cardizem gtt. rate controlled. on heparin gtt 9. Diabetes, II 10. Hyperlipidemia 11. Morbid obesity 12. LE PAD: no claudications or wounds. 13. Thrombocytopenia; PLT 105 14. Near syncope; episode yeset Recommendations Add pressor support with Levophed Secondary prevention measures ASA, statin Hold imdur, metoprolol, losartan as warranted with hypotension Can use IV Dig PRN for rate control Fluid offloading via HD Start Eliquis for stroke prohphylaxis and discontinue heparin Ongoing lung optimization, treatment of PNA as per pulm. Justicifation of Admission Dx: Justifications for Admission: Justification of Admission Dx: Yes FATOU LOPEZ MD 04/24/20 1616: CARDIO Progress Notes Assessment Assessment Patient seen and evaluated I agree with our nurse practitioners assessment and plan as above. Acute respiratory failure with COVID PNA. Remdesivir, Decadron initiated. + approximately 14 days ago. CTA negative for PE Acute on chronic diastolic CHF; Echo 08/13 with preserved LV systolic function ESRD on HD Mild troponin elevation; highest 0.8. Most probable type II, demand ischemia. CP free. CAD; recent cath with diffused LAD disease with fixed defect on MPI. No lesions needing intervention. Accelerated HTN; now hypotensive. PAFIB with RVR upon arrival; off Cardizem gtt. rate controlled. on heparin gtt We will start Eliquis. Hyperlipidemia LE PAD: no claudications or wounds. Near syncope; episode yesterday. Rhythm improving. PAUL MARTIN APRN Apr 24, 2020 10:02 FATOU LOPEZ MD Apr 24, 2020 16:16
--- NOTE | 2020-04-24 10:03 | PDOC ---
DATE OF SERVICE DATE: 04/24/20 TIME: 09:58 SUBJECTIVE ROS states feeling better , sitting up in bed OBJECTIVE Vital Signs Vital Signs Date Time Temp Pulse Resp B/P (MAP) Pulse Ox O2 Delivery O2 Flow Rate FiO2 04/24/20 09:14 93 Venturi Mask 15.0 04/24/20 09:00 126 20 104/80 (88) 04/24/20 08:00 97.6 97.6 I & 0 Intake and Output 04/24/20 07:00 Intake Total 1142.9 ml Output Total 0 ml Balance 1142.9 ml Intake Oral 358 ml IV Total 784.9 ml Output Urine Total 0 ml # Voids 1 PHYSICAL EXAM Physical Exam GEN: Propped up in bed, NAD HEEN OM moist, On O2 Venturi mask NECK: supple CVS: S1S2 RESP: Non labored GI: Soft, NT : No CVA tenderness, No Suprapubic Tenderness NEURO Ax3, grossly normal SKIN No Rash EXT mild LE edema DIAGNOSIS/ASSESSMENT Assessment & Plan ESRD- on HD TTS since July 2019 Last OP Dialysis was on 04/21(holiday schedule) with 1.5 lts UF , Dialyzed Wednesday and Wednesday , currently no emergent indication for Patient reports good uop , Bladder scan today to r/o retention , dw RN Ac Resp Failure- Positive for CoVid at the dialysis unit, / Pneumonia . On vapotherm , stable CoVID 19 diagnosed recently COMMENT/RELEVANT DATA Meds Current Medications Medications (Trade) Dose Ordered Sig/Joshua Start Time Stop Time Status Last Admin Dose Admin Albumin Human 200 ml @ 200 mls/hr 1X PRN PRN 04/22/20 17:45 04/22/20 23:44 DC Aspirin (Ecotrin) 81 mg DAILYWBKFT 04/23/20 08:00 04/24/20 08:57 81 MG Atorvastatin Calcium (Lipitor) 40 mg QHS 04/22/20 21:00 04/23/20 20:42 40 MG Azithromycin 250 ml @ 250 mls/hr 1X ONCE 04/22/20 11:00 04/22/20 11:59 DC 04/22/20 17:05 250 MLS/HR Azithromycin 250 mg/Sodium Chloride 250 ml @ 250 mls/hr Q24H 04/23/20 17:00 04/26/20 17:00 04/23/20 17:26 250 MLS/HR Aztreonam (Azactam) 2 gm 1X ONCE 04/22/20 10:45 04/22/20 10:53 DC Cefepime HCl (Maxipime) 1 gm Q24H 04/23/20 09:00 04/24/20 08:56 1 GM Dexamethasone (Decadron) 6 mg DAILYWBKFT 04/23/20 08:00 04/24/20 08:57 6 MG Dexamethasone Sodium Phosphate (Decadron) 10 mg 1X ONCE 04/22/20 17:30 04/22/20 17:31 DC 04/22/20 17:34 10 MG Dextrose (Dextrose 50%-Water Syringe) 12.5 gm PRN Q15MIN PRN 04/22/20 17:15 Diltiazem HCl (Cardizem Iv Push) 20 mg 1X ONCE 04/22/20 08:30 04/22/20 08:33 DC 04/22/20 09:21 20 MG Diltiazem HCl 125 mg/Sodium Chloride 125 ml @ 5 mls/hr CONT PRN 04/22/20 08:45 04/23/20 15:41 DC 04/23/20 01:56 15 MLS/HR Enoxaparin Sodium (Lovenox 40mg Syringe) 40 mg Q24H 04/22/20 17:15 UNV Enoxaparin Sodium (Lovenox Per Pharmacy Treatment Dosing) 1 each PRN DAILY PRN 04/22/20 17:30 UNV Furosemide (Lasix) 60 mg 1X ONCE 04/22/20 08:45 04/22/20 08:46 DC 04/22/20 09:25 60 MG Guaifenesin/ Codeine Phosphate (Robitussin Ac) 10 ml PRN Q6HRS PRN 04/22/20 08:45 04/22/20 09:38 10 ML Heparin Sodium (Porcine) (Heparin Sodium) 1,600 unit PRN Q6HRS PRN 04/23/20 11:00 04/24/20 02:18 1,600 UNIT Heparin Sodium/ Dextrose 250 ml @ 20 mls/hr CONT PRN 04/23/20 11:00 04/23/20 23:59 16.976 MLS/HR Info (PHARMACY MONITORING -- do not chart) 1 each PRN DAILY PRN 04/23/20 10:00 UNV Insulin Human Lispro (HumaLOG) 0-7 UNITS TIDWMEALS 04/22/20 18:00 04/24/20 08:59 4 UNITS Isosorbide Mononitrate (Imdur) 60 mg DAILY 04/23/20 09:00 04/24/20 08:56 60 MG Labetalol HCl (Trandate) 200 mg BID 04/22/20 21:00 04/24/20 08:57 200 MG Lactobacillus Rhamnosus (Culturelle) 1 cap BID 04/23/20 21:00 04/24/20 08:58 1 CAP Losartan Potassium (Cozaar) 100 mg DAILY 04/23/20 09:00 04/24/20 08:55 100 MG Metoprolol Tartrate (Lopressor) 12.5 mg BID 04/23/20 17:00 04/24/20 08:58 12.5 MG Metronidazole 100 ml @ 100 mls/hr 1X ONCE 04/22/20 10:45 04/22/20 10:53 DC Morphine Sulfate (Morphine Sulfate) 2 mg PRN Q2HR PRN 04/22/20 11:30 04/23/20 11:29 DC 04/22/20 22:03 2 MG Nitroglycerin (Nitro-Bid Oint) 1.5 inch 1X ONCE 04/22/20 08:30 04/22/20 08:33 DC 04/22/20 09:35 1 INCH Nitroglycerin/ Dextrose 250 ml @ 0 mls/hr 1X ONCE 04/22/20 08:30 04/22/20 08:39 DC Ondansetron HCl (Zofran) 8 mg STK-MED ONCE 04/23/20 18:00 04/24/20 08:20 DC Prochlorperazine Edisylate (Compazine) 10 mg STK-MED ONCE 04/23/20 18:00 04/24/20 08:20 DC Remdesivir 100 mg/ Sodium Chloride 230 ml @ 460 mls/hr Q24H 04/24/20 11:00 04/27/20 11:29 Remdesivir 200 mg/ Sodium Chloride 210 ml @ 210 mls/hr 1X ONCE 04/23/20 11:00 04/23/20 11:59 DC 04/23/20 14:03 210 MLS/HR Sevelamer Carbonate (Renvela) 800 mg TIDWMEALS 04/23/20 08:00 04/24/20 08:56 800 MG Sodium Bicarbonate (Sodium Bicarbonate) 650 mg TID 04/22/20 21:00 04/24/20 08:56 650 MG Sodium Chloride 1,000 ml @ 1,000 mls/hr Q1H PRN 04/23/20 10:00 04/23/20 15:59 DC Vancomycin HCl (Vanco Per Pharmacy) 1 each PRN DAILY PRN 04/23/20 17:00 04/24/20 07:44 1 EACH Vancomycin HCl (Vancomycin Random Level) 1 each 1X ONCE 04/23/20 06:00 04/23/20 06:01 DC 04/23/20 06:00 1 EACH Vancomycin HCl 500 mg/Sodium Chloride 100 ml @ 100 mls/hr QTUTHSA 04/23/20 16:00 04/23/20 16:24 100 MLS/HR Vancomycin HCl 2 gm/Sodium Chloride 500 ml @ 250 mls/hr 1X ONCE 04/22/20 11:00 04/22/20 12:59 DC 04/22/20 12:35 250 MLS/HR Vitamin B Complex/ Vitamin C (Amaya-Shabana) 1 tab DAILY 04/23/20 09:00 04/24/20 08:57 1 TAB Lab Laboratory Tests Test 04/23/20 13:06 04/23/20 13:30 04/23/20 17:38 04/23/20 18:25 Glucose (Fingerstick) 191 mg/dL (70-99) 251 mg/dL (70-99) Prothrombin Time 17.5 SEC (11.7-14.0) Prothromb Time International Ratio 1.5 (0.8-1.1) Activated Partial Thromboplast Time 49 SEC (24-38) Heparin Anti-Xa Act, Unfractionated 0.30 IU/mL (0.30-0.70) Sodium Level 137 mmol/L (136-145) Potassium Level 4.2 mmol/L (3.5-5.1) Chloride Level 98 mmol/L (98-107) Carbon Dioxide Level 27 mmol/L (21-32) Anion Gap 12 (6-14) Blood Urea Nitrogen 31 mg/dL (7-20) Creatinine 3.0 mg/dL (0.6-1.0) Estimated GFR (Cockcroft-Gault) 16.2 Glucose Level 293 mg/dL (70-99) Calcium Level 8.9 mg/dL (8.5-10.1) Magnesium Level 2.1 mg/dL (1.8-2.4) Test 04/24/20 01:38 04/24/20 07:15 04/24/20 08:47 Heparin Anti-Xa Act, Unfractionated 0.26 IU/mL (0.30-0.70) White Blood Count 8.3 x10^3/uL (4.0-11.0) Red Blood Count 3.24 x10^6/uL (3.50-5.40) Hemoglobin 9.2 g/dL (12.0-15.5) Hematocrit 28.4 % (36.0-47.0) Mean Corpuscular Volume 88 fL (79-100) Mean Corpuscular Hemoglobin 29 pg (25-35) Mean Corpuscular Hemoglobin Concent 33 g/dL (31-37) Red Cell Distribution Width 17.6 % (11.5-14.5) Platelet Count 105 x10^3/uL (140-400) Neutrophils (%) (Auto) 89 % (31-73) Lymphocytes (%) (Auto) 6 % (24-48) Monocytes (%) (Auto) 4 % (0-9) Eosinophils (%) (Auto) 0 % (0-3) Basophils (%) (Auto) 1 % (0-3) Neutrophils # (Auto) 7.4 x10^3/uL (1.8-7.7) Lymphocytes # (Auto) 0.5 x10^3/uL (1.0-4.8) Monocytes # (Auto) 0.4 x10^3/uL (0.0-1.1) Eosinophils # (Auto) 0.0 x10^3/uL (0.0-0.7) Basophils # (Auto) 0.0 x10^3/uL (0.0-0.2) Sodium Level 137 mmol/L (136-145) Potassium Level 4.8 mmol/L (3.5-5.1) Chloride Level 98 mmol/L (98-107) Carbon Dioxide Level 29 mmol/L (21-32) Anion Gap 10 (6-14) Blood Urea Nitrogen 42 mg/dL (7-20) Creatinine 3.6 mg/dL (0.6-1.0) Estimated GFR (Cockcroft-Gault) 13.1 Glucose Level 211 mg/dL (70-99) Calcium Level 9.2 mg/dL (8.5-10.1) Total Bilirubin 1.4 mg/dL (0.2-1.0) Direct Bilirubin 0.6 mg/dL (0.0-0.2) Aspartate Amino Transf (AST/SGOT) 69 U/L (15-37) Alanine Aminotransferase (ALT/SGPT) 86 U/L (14-59) Alkaline Phosphatase 82 U/L (46-116) Total Protein 6.2 g/dL (6.4-8.2) Albumin 2.4 g/dL (3.4-5.0) Glucose (Fingerstick) 219 mg/dL (70-99) Results All relevant outside records, renal labs, imaging studies, telemetry/EKG's were reviewed. Justicifation of Admission Dx: Justifications for Admission: Justification of Admission Dx: Yes HIMANSHU MCGOVERN MD Apr 24, 2020 10:03
[2020-04-24] MEDS ORDERED: IOHEXOL 350 MG/ML 100 ML VIAL. IV ONE (10:30)
[2020-04-24] MEDS ORDERED: CONTRAST GIVEN. MC PRN (10:30)
--- NOTE | 2020-04-24 11:00 | NUR ---
Bladder scan per Dr Kirkland resulted in 0ml of urine
--- NOTE | 2020-04-24 11:08 | PDOC ---
PULMONARY PROGRESS NOTES DATE: 04/24/20 TIME: 11:05 Subjective Patient remains on 50% Ventimask Continue heparin drip Afebrile overnight No other concerns overnight from nursing Vitals Vital Signs Date Time Temp Pulse Resp B/P (MAP) Pulse Ox O2 Delivery O2 Flow Rate FiO2 04/24/20 10:00 105 22 96/71 (79) 92 Venturi Mask 15.0 04/24/20 08:00 97.6 97.6 ROS: No Nausea, No Chest Pain, No Abdominal Pain, No Increase Cough General: Alert Lungs: Clear Cardiovascular: S1, S2 Abdomen: Soft Neuro Exam: Alert Extremities: No Edema Skin: Warm Labs Laboratory Tests Test 04/22/20 16:25 04/22/20 17:40 04/22/20 18:40 04/23/20 08:51 Lactic Acid Level 1.7 mmol/L (0.4-2.0) Glucose (Fingerstick) 256 mg/dL (70-99) 224 mg/dL (70-99) Troponin I Quantitative 0.878 ng/mL (0.000-0.055) Test 04/23/20 09:17 04/23/20 13:06 04/23/20 13:30 04/23/20 17:38 Troponin I Quantitative 0.315 ng/mL (0.000-0.055) Random Vancomycin Level 16.9 mcg/mL Glucose (Fingerstick) 191 mg/dL (70-99) 251 mg/dL (70-99) Prothrombin Time 17.5 SEC (11.7-14.0) Prothromb Time International Ratio 1.5 (0.8-1.1) Activated Partial Thromboplast Time 49 SEC (24-38) Test 04/23/20 18:25 04/24/20 01:38 04/24/20 07:15 04/24/20 08:47 Heparin Anti-Xa Act, Unfractionated 0.30 IU/mL (0.30-0.70) 0.26 IU/mL (0.30-0.70) Sodium Level 137 mmol/L (136-145) 137 mmol/L (136-145) Potassium Level 4.2 mmol/L (3.5-5.1) 4.8 mmol/L (3.5-5.1) Chloride Level 98 mmol/L (98-107) 98 mmol/L (98-107) Carbon Dioxide Level 27 mmol/L (21-32) 29 mmol/L (21-32) Anion Gap 12 (6-14) 10 (6-14) Blood Urea Nitrogen 31 mg/dL (7-20) 42 mg/dL (7-20) Creatinine 3.0 mg/dL (0.6-1.0) 3.6 mg/dL (0.6-1.0) Estimated GFR (Cockcroft-Gault) 16.2 13.1 Glucose Level 293 mg/dL (70-99) 211 mg/dL (70-99) Calcium Level 8.9 mg/dL (8.5-10.1) 9.2 mg/dL (8.5-10.1) Magnesium Level 2.1 mg/dL (1.8-2.4) White Blood Count 8.3 x10^3/uL (4.0-11.0) Red Blood Count 3.24 x10^6/uL (3.50-5.40) Hemoglobin 9.2 g/dL (12.0-15.5) Hematocrit 28.4 % (36.0-47.0) Mean Corpuscular Volume 88 fL (79-100) Mean Corpuscular Hemoglobin 29 pg (25-35) Mean Corpuscular Hemoglobin Concent 33 g/dL (31-37) Red Cell Distribution Width 17.6 % (11.5-14.5) Platelet Count 105 x10^3/uL (140-400) Neutrophils (%) (Auto) 89 % (31-73) Lymphocytes (%) (Auto) 6 % (24-48) Monocytes (%) (Auto) 4 % (0-9) Eosinophils (%) (Auto) 0 % (0-3) Basophils (%) (Auto) 1 % (0-3) Neutrophils # (Auto) 7.4 x10^3/uL (1.8-7.7) Lymphocytes # (Auto) 0.5 x10^3/uL (1.0-4.8) Monocytes # (Auto) 0.4 x10^3/uL (0.0-1.1) Eosinophils # (Auto) 0.0 x10^3/uL (0.0-0.7) Basophils # (Auto) 0.0 x10^3/uL (0.0-0.2) Total Bilirubin 1.4 mg/dL (0.2-1.0) Direct Bilirubin 0.6 mg/dL (0.0-0.2) Aspartate Amino Transf (AST/SGOT) 69 U/L (15-37) Alanine Aminotransferase (ALT/SGPT) 86 U/L (14-59) Alkaline Phosphatase 82 U/L (46-116) Total Protein 6.2 g/dL (6.4-8.2) Albumin 2.4 g/dL (3.4-5.0) Glucose (Fingerstick) 219 mg/dL (70-99) Laboratory Tests Test 04/23/20 13:06 04/23/20 13:30 04/23/20 17:38 04/23/20 18:25 Glucose (Fingerstick) 191 mg/dL (70-99) 251 mg/dL (70-99) Prothrombin Time 17.5 SEC (11.7-14.0) Prothromb Time International Ratio 1.5 (0.8-1.1) Activated Partial Thromboplast Time 49 SEC (24-38) Heparin Anti-Xa Act, Unfractionated 0.30 IU/mL (0.30-0.70) Sodium Level 137 mmol/L (136-145) Potassium Level 4.2 mmol/L (3.5-5.1) Chloride Level 98 mmol/L (98-107) Carbon Dioxide Level 27 mmol/L (21-32) Anion Gap 12 (6-14) Blood Urea Nitrogen 31 mg/dL (7-20) Creatinine 3.0 mg/dL (0.6-1.0) Estimated GFR (Cockcroft-Gault) 16.2 Glucose Level 293 mg/dL (70-99) Calcium Level 8.9 mg/dL (8.5-10.1) Magnesium Level 2.1 mg/dL (1.8-2.4) Test 04/24/20 01:38 04/24/20 07:15 04/24/20 08:47 Heparin Anti-Xa Act, Unfractionated 0.26 IU/mL (0.30-0.70) White Blood Count 8.3 x10^3/uL (4.0-11.0) Red Blood Count 3.24 x10^6/uL (3.50-5.40) Hemoglobin 9.2 g/dL (12.0-15.5) Hematocrit 28.4 % (36.0-47.0) Mean Corpuscular Volume 88 fL (79-100) Mean Corpuscular Hemoglobin 29 pg (25-35) Mean Corpuscular Hemoglobin Concent 33 g/dL (31-37) Red Cell Distribution Width 17.6 % (11.5-14.5) Platelet Count 105 x10^3/uL (140-400) Neutrophils (%) (Auto) 89 % (31-73) Lymphocytes (%) (Auto) 6 % (24-48) Monocytes (%) (Auto) 4 % (0-9) Eosinophils (%) (Auto) 0 % (0-3) Basophils (%) (Auto) 1 % (0-3) Neutrophils # (Auto) 7.4 x10^3/uL (1.8-7.7) Lymphocytes # (Auto) 0.5 x10^3/uL (1.0-4.8) Monocytes # (Auto) 0.4 x10^3/uL (0.0-1.1) Eosinophils # (Auto) 0.0 x10^3/uL (0.0-0.7) Basophils # (Auto) 0.0 x10^3/uL (0.0-0.2) Sodium Level 137 mmol/L (136-145) Potassium Level 4.8 mmol/L (3.5-5.1) Chloride Level 98 mmol/L (98-107) Carbon Dioxide Level 29 mmol/L (21-32) Anion Gap 10 (6-14) Blood Urea Nitrogen 42 mg/dL (7-20) Creatinine 3.6 mg/dL (0.6-1.0) Estimated GFR (Cockcroft-Gault) 13.1 Glucose Level 211 mg/dL (70-99) Calcium Level 9.2 mg/dL (8.5-10.1) Total Bilirubin 1.4 mg/dL (0.2-1.0) Direct Bilirubin 0.6 mg/dL (0.0-0.2) Aspartate Amino Transf (AST/SGOT) 69 U/L (15-37) Alanine Aminotransferase (ALT/SGPT) 86 U/L (14-59) Alkaline Phosphatase 82 U/L (46-116) Total Protein 6.2 g/dL (6.4-8.2) Albumin 2.4 g/dL (3.4-5.0) Glucose (Fingerstick) 219 mg/dL (70-99) Medications Active Scripts Medications Dose Route/Sig Max Daily Dose Days Date Category Soliqua 100 Unit-33 Mcg/ml Pen (Insulin Glargine/Lixisenatide) 3 Ml Insuln.pen 3 Ml SQ PRN PRN 02/14/20 Reported Lidocaine-Prilocaine Cream (Lidocaine/Prilocaine) 30 Gm Cream..g. 30 Gm TP PRN PRN 02/14/20 Reported Nephro-Shabana Tablet (Folic Acid/Vitamin B Comp W-C) 0.8 Mg Tablet 1 Tab PO DAILY 02/14/20 Reported Sodium Bicarbonate 650 Mg Tablet 650 Mg PO TID 30 08/09/19 Rx Renvela (Sevelamer Carbonate) 800 Mg Tablet 800 Mg PO TIDWMEALS 30 08/09/19 Rx Aspirin Ec (Aspirin) 81 Mg Tablet.dr 81 Mg PO DAILYWBKFT 30 08/09/19 Rx Cozaar (Losartan Potassium) 50 Mg Tablet 100 Mg PO DAILY 30 08/09/19 Rx Labetalol Hcl 200 Mg Tablet 200 Mg PO BID 30 08/09/19 Rx Atorvastatin Calcium 40 Mg Tablet 1 Tab PO QHS 03/05/19 Reported Isosorbide Mononitrate Er (Isosorbide Mononitrate) 60 Mg Tab.er.24h 1 Tab PO DAILY 03/12/17 Reported Impression . IMPRESSION: 1. Acute hypoxemic respiratory failure secondary to COVID-19 viral pneumonia. 2. COVID-19 viral pneumonia. 3. Possible bacterial pneumonia. 4. Rule out pulmonary embolism. 5. Bilateral pulmonary infiltrates compatible with viral pneumonia, possible bacterial pneumonia. 6. Renal failure. 7. Diabetes. 8. Hypertension. Plan . PLAN: Continue current supplemental oxygen, currently on 50% Ventimask, nasal cannula as tolerated Follow chest x-ray as needed Obtain CTA today to rule out PE, continue treatment dose heparin Continue full course of remdesivir Continue IV steroids with slow taper Continue empiric antibiotics, currently on azithromycin and vancomycin Follow nephrology recommendations in regards to hemodialysis Follow cardiology recommendations Physical therapy/Occupational Therapy DVT/GI prophylaxis Discussed with RN and RT Critical Care time [id number] TANJA FISHER MD Apr 24, 2020 11:08
[2020-04-24] MEDS: REMDESIVIR 100mg in NORMAL SALINE 250ML X 4 DAYS IV SCH (11:10)
--- NOTE | 2020-04-24 11:12 | RAD ---
CTA CHEST INDICATION: sob ,r/o PE ,covid positive Comparison: Radiograph 04/22/2020. TECHNIQUE: Following the uneventful administration of intravenous contrast, 80 cc Omnipaque 350, axia l CT sections were obtained through the lungs and upper abdomen. Multiplanar reconstructions and MIP images were obtained. RS compliance statement: One or more of the following individualized dose reduction techniques were utilized for this examinat ion: 1. Automated exposure control 2. Adjustment of the mA and/or kV according to patient size 3. Use of iterative reconstruction technique FINDINGS: Pulmonary arteries: No evidence of pulmonary thromboembolic disease. Dilated pulmonary trunk measures 34 mm, which can be seen with pulmonary hypertension. Lungs and Airways: Diffuse bilateral groundglass opacities. Relaxation atelectasis of much of the rig ht lower lobe. No abnormality of the central airways. Pleura: Large right pleural effusion. Heart and Mediastinum: The visualized thyroid is normal in size and attenuation. No axillary or supra clavicular lymphadenopathy. No mediastinal, hilar or retrocrural lymphadenopathy. Cardiomegaly. No pe ricardial effusion. Extensive coronary artery atherosclerotic disease. Atherosclerosis of the thoraci c aorta. Abdomen: Limited images through the upper abdomen show no abnormality of the visualized organs. Bones and Soft Tissues: The visualized bones and chest wall soft tissues are within normal limits. IMPRESSION: 1. No evidence of pulmonary thromboembolic disease. 2. Diffuse bilateral groundglass opacities, likely multifocal infection or edema. 3. Large right pleural effusion with relaxation atelectasis of much of the right lower lobe. 4. Extensive coronary artery atherosclerotic disease. Electronically signed by: Jordan Guerin MD (04/24/2020 11:10 AM) [id number]
[2020-04-24] MEDS ORDERED: NOREPINEPHRINE VIAL 8 MG in IV DEXTROSE 5% 250 ML IV PRN (13:30)
--- NOTE | 2020-04-24 15:48 | NUR ---
SS following up with discharge planning. SS reviewed pt chart and discussed with pt RN. Pt is currently requiring oxygen at 7 liters nasal canula. COVID19 positive. Pt on IV Vancomycin, IV Azithromycin, Remdesivir, and IV Cefepime. Pt having unstable blood pressure today. Pt has outpatient dialysis at [facility], ; fax [phone], Wednesday, , and Wednesday at 0630. SS will continue to follow for discharge planning.
[2020-04-24] MEDS: AZITHROMYCIN 250 MG in IV NORMAL SALINE 250ML 250 ML IV SCH (17:20)
[2020-04-24] MEDS: PROCHLORPERAZINE 10 MG/2 ML VIAL. IV PRN (19:14)
[2020-04-24] MEDS: APIXABAN 5 MG TABLET. PO SCH (20:23)
[2020-04-24] MEDS: ATORVASTATIN CALCIUM 40 MG TABLET. PO SCH (20:24)
--- NOTE | 2020-04-24 21:19 | NUR ---
Labetalol non administered due to bouts of hypotension throughout day shift. Metoprolol dose given due to admitting diagnosis of afib RVR for rate control.
[2020-04-25] VITALS (21 sets, daily range): BP systolic 81–158; BP diastolic 54–85
[2020-04-25] MEDS: SEVELAMER CARBONATE 800 MG TABLET. PO SCH ×3 (08:00→17:26)
[2020-04-25] MEDS ORDERED: IV NORMAL SALINE 1000ML BAG 1,000 ML IV PRN ×2 (08:15)
[2020-04-25] MEDS ORDERED: ALBUMIN HUMAN 25% 200 ML IV PRN (08:15)
[2020-04-25] MEDS ORDERED: DIALYSIS PATIENT. MC PRN ×2 (08:15)
--- NOTE | 2020-04-25 08:26 | PDOC ---
PULMONARY PROGRESS NOTES DATE: 04/25/20 TIME: 08:23 Subjective Now on N/C oxygen, tolerating well Afebrile overnight No other concerns overnight from nursing Vitals Vital Signs Date Time Temp Pulse Resp B/P (MAP) Pulse Ox O2 Delivery O2 Flow Rate FiO2 04/25/20 08:00 Venturi Mask 15.0 04/25/20 05:15 92 04/25/20 05:00 100 22 102/65 (77) 04/25/20 04:00 97.7 97.7 ROS: No Nausea, No Chest Pain, No Abdominal Pain, No Increase Cough General: Alert Lungs: Clear Cardiovascular: S1, S2 Abdomen: Soft Neuro Exam: Alert Extremities: No Edema Skin: Warm Labs Laboratory Tests Test 04/23/20 08:51 04/23/20 09:17 04/23/20 13:06 04/23/20 13:30 Glucose (Fingerstick) 224 mg/dL (70-99) 191 mg/dL (70-99) Troponin I Quantitative 0.315 ng/mL (0.000-0.055) Random Vancomycin Level 16.9 mcg/mL Prothrombin Time 17.5 SEC (11.7-14.0) Prothromb Time International Ratio 1.5 (0.8-1.1) Activated Partial Thromboplast Time 49 SEC (24-38) Test 04/23/20 17:38 04/23/20 18:25 04/24/20 01:38 04/24/20 07:15 Glucose (Fingerstick) 251 mg/dL (70-99) Heparin Anti-Xa Act, Unfractionated 0.30 IU/mL (0.30-0.70) 0.26 IU/mL (0.30-0.70) Sodium Level 137 mmol/L (136-145) 137 mmol/L (136-145) Potassium Level 4.2 mmol/L (3.5-5.1) 4.8 mmol/L (3.5-5.1) Chloride Level 98 mmol/L (98-107) 98 mmol/L (98-107) Carbon Dioxide Level 27 mmol/L (21-32) 29 mmol/L (21-32) Anion Gap 12 (6-14) 10 (6-14) Blood Urea Nitrogen 31 mg/dL (7-20) 42 mg/dL (7-20) Creatinine 3.0 mg/dL (0.6-1.0) 3.6 mg/dL (0.6-1.0) Estimated GFR (Cockcroft-Gault) 16.2 13.1 Glucose Level 293 mg/dL (70-99) 211 mg/dL (70-99) Calcium Level 8.9 mg/dL (8.5-10.1) 9.2 mg/dL (8.5-10.1) Magnesium Level 2.1 mg/dL (1.8-2.4) White Blood Count 8.3 x10^3/uL (4.0-11.0) Red Blood Count 3.24 x10^6/uL (3.50-5.40) Hemoglobin 9.2 g/dL (12.0-15.5) Hematocrit 28.4 % (36.0-47.0) Mean Corpuscular Volume 88 fL (79-100) Mean Corpuscular Hemoglobin 29 pg (25-35) Mean Corpuscular Hemoglobin Concent 33 g/dL (31-37) Red Cell Distribution Width 17.6 % (11.5-14.5) Platelet Count 105 x10^3/uL (140-400) Neutrophils (%) (Auto) 89 % (31-73) Lymphocytes (%) (Auto) 6 % (24-48) Monocytes (%) (Auto) 4 % (0-9) Eosinophils (%) (Auto) 0 % (0-3) Basophils (%) (Auto) 1 % (0-3) Neutrophils # (Auto) 7.4 x10^3/uL (1.8-7.7) Lymphocytes # (Auto) 0.5 x10^3/uL (1.0-4.8) Monocytes # (Auto) 0.4 x10^3/uL (0.0-1.1) Eosinophils # (Auto) 0.0 x10^3/uL (0.0-0.7) Basophils # (Auto) 0.0 x10^3/uL (0.0-0.2) Total Bilirubin 1.4 mg/dL (0.2-1.0) Direct Bilirubin 0.6 mg/dL (0.0-0.2) Aspartate Amino Transf (AST/SGOT) 69 U/L (15-37) Alanine Aminotransferase (ALT/SGPT) 86 U/L (14-59) Alkaline Phosphatase 82 U/L (46-116) Total Protein 6.2 g/dL (6.4-8.2) Albumin 2.4 g/dL (3.4-5.0) Test 04/24/20 08:47 04/24/20 10:10 04/24/20 12:29 04/24/20 16:44 Glucose (Fingerstick) 219 mg/dL (70-99) 278 mg/dL (70-99) 188 mg/dL (70-99) Heparin Anti-Xa Act, Unfractionated 0.78 IU/mL (0.30-0.70) Test 04/24/20 20:21 Glucose (Fingerstick) 242 mg/dL (70-99) Laboratory Tests Test 04/24/20 08:47 04/24/20 10:10 04/24/20 12:29 04/24/20 16:44 Glucose (Fingerstick) 219 mg/dL (70-99) 278 mg/dL (70-99) 188 mg/dL (70-99) Heparin Anti-Xa Act, Unfractionated 0.78 IU/mL (0.30-0.70) Test 04/24/20 20:21 Glucose (Fingerstick) 242 mg/dL (70-99) Medications Active Scripts Medications Dose Route/Sig Max Daily Dose Days Date Category Soliqua 100 Unit-33 Mcg/ml Pen (Insulin Glargine/Lixisenatide) 3 Ml Insuln.pen 3 Ml SQ PRN PRN 02/14/20 Reported Lidocaine-Prilocaine Cream (Lidocaine/Prilocaine) 30 Gm Cream..g. 30 Gm TP PRN PRN 02/14/20 Reported Nephro-Shabana Tablet (Folic Acid/Vitamin B Comp W-C) 0.8 Mg Tablet 1 Tab PO DAILY 02/14/20 Reported Sodium Bicarbonate 650 Mg Tablet 650 Mg PO TID 08/09/19 Rx Renvela (Sevelamer Carbonate) 800 Mg Tablet 800 Mg PO TIDWMEALS 08/09/19 Rx Aspirin Ec (Aspirin) 81 Mg Tablet.dr 81 Mg PO DAILYWBKFT 08/09/19 Rx Cozaar (Losartan Potassium) 50 Mg Tablet 100 Mg PO DAILY 08/09/19 Rx Labetalol Hcl 200 Mg Tablet 200 Mg PO BID 30 08/09/19 Rx Atorvastatin Calcium 40 Mg Tablet 1 Tab PO QHS 03/05/19 Reported Isosorbide Mononitrate Er (Isosorbide Mononitrate) 60 Mg Tab.er.24h 1 Tab PO DAILY 03/12/17 Reported Comments CTA chest IMPRESSION: 1. No evidence of pulmonary thromboembolic disease. 2. Diffuse bilateral groundglass opacities, likely multifocal infection or edema. 3. Large right pleural effusion with relaxation atelectasis of much of the right lower lobe. 4. Extensive coronary artery atherosclerotic disease. Impression . IMPRESSION: 1. Acute hypoxemic respiratory failure secondary to COVID-19 viral pneumonia. 2. COVID-19 viral pneumonia. 3. Possible bacterial pneumonia. 4. CTA neg for PE 5. Bilateral pulmonary infiltrates compatible with viral pneumonia, possible bacterial pneumonia. 6. Renal failure. 7. Diabetes. 8. Hypertension. Plan . PLAN: Continue current supplemental oxygen, now on N/C tolerating well Follow chest x-ray as needed CTA negative for PE, D/C heparin gtt, now on eliquis Continue full course of remdesivir Continue IV steroids with slow taper, will need full 10 day course Continue empiric antibiotics, currently on azithromycin and vancomycin and cefepime Follow nephrology recommendations in regards to hemodialysis Follow cardiology recommendations Physical therapy/Occupational Therapy DVT/GI prophylaxis Discussed with RN and RT PT. was transfer out of ICU if ok with other consults TANJA FISHER MD Apr 25, 2020 08:26
--- NOTE | 2020-04-25 08:28 | PDOC ---
PROGRESS NOTES Date of Service: DATE: 04/25/20 TIME: 08:28 Subjective Subjective seen in ICU , getting dialysis today Objective Objective Vital Signs Date Time Temp Pulse Resp B/P (MAP) Pulse Ox O2 Delivery O2 Flow Rate FiO2 04/25/20 08:00 Venturi Mask 15.0 04/25/20 05:15 92 04/25/20 05:00 100 22 102/65 (77) 04/25/20 04:00 97.7 97.7 Intake and Output 04/25/20 07:00 Intake Total 1321.45 ml Output Total 650 ml Balance 671.45 ml Intake Oral 720 ml IV Total 401.45 ml Other 200 ml Output Urine Total 0 ml Emesis 650 ml Physical Exam Abdomen: Soft Heart: Normal S2, Other (AFIB ) Extremities: Normal pulses, Other (trace bilateral LE edema ) General: Alert, Oriented X3, Cooperative, mild distress HEENT: Atraumatic, Mucous membr. moist/pink Lungs: Other (on BIPAP) MUSCULOSKELETAL: Osteoarthritic changes both hands Neuro: Normal speech, Sensation intact Psych/Mental Status: Mental status NL Skin: No significant lesion Diagnosis Problem List Problems Medical Problems: (1) Acute pulmonary edema Status: Acute (2) Acute respiratory failure with hypoxia Status: Acute (3) Atrial fibrillation with RVR Status: Acute (4) COVID-19 Status: Acute (5) NSTEMI (non-ST elevated myocardial infarction) Status: Acute (6) Septic shock Status: Acute Assessment Assessment Problems Medical Problems: (1) Acute pulmonary edema Status: Acute (2) Acute respiratory failure with hypoxia Status: Acute (3) Atrial fibrillation with RVR Status: Acute (4) COVID-19 Status: Acute (5) NSTEMI (non-ST elevated myocardial infarction) Status: Acute (6) Septic shock Status: Acute FINAL IMPRESSION: 1. Shortness of breath, combination of heart failure as well as pneumonia. 2. Recent COVID infection. 3. Coronary artery disease. She has a distal LAD disease, had a cardiac catheterization 07/2019. 4. End-stage renal disease, on hemodialysis. 5. Insulin-dependent diabetes. 6. Diastolic heart failure. 7. Hyperlipidemia. PLAN:on Eliquis po bid for a fib CTA today -neg for PE started on remdisivr .spoke with ID DIalysis today Off heparin drip ventimask 50% off iv cardizam for a fib. dexamethasome IV antibiotics. zithromax+vanco+cefepime slight nicanor troponin spoke with Pulmonary+cardiology add gabapentin for leg pain for neuropathy At this time, the patient was admitted to the hospital. Cultures were done, started on broad-spectrum antibiotics, Zithromax given, vancomycin as well as cefepime. Pulmonary is consulted. Cardiology is consulted for atrial fibrillation, put on Cardizem drip and breathing treatments, oxygen, BiPAP and Ventimask and also DVT prophylaxis with Lovenox and see how she responds. The patient is almost more than a week with the COVID. I am not sure remdesivir is going to be any helpful at this point, we will check with Pulmonology. Plan Plan of Care Problems Medical Problems: (1) Acute pulmonary edema Status: Acute (2) Acute respiratory failure with hypoxia Status: Acute (3) Atrial fibrillation with RVR Status: Acute (4) COVID-19 Status: Acute (5) NSTEMI (non-ST elevated myocardial infarction) Status: Acute (6) Septic shock Status: Acute Comment Review of Relevant I have reviewed the following items allen (where applicable) has been applied. Labs Laboratory Tests Test 04/24/20 08:47 04/24/20 10:10 04/24/20 12:29 04/24/20 16:44 Glucose (Fingerstick) 219 mg/dL (70-99) 278 mg/dL (70-99) 188 mg/dL (70-99) Heparin Anti-Xa Act, Unfractionated 0.78 IU/mL (0.30-0.70) Test 04/24/20 20:21 Glucose (Fingerstick) 242 mg/dL (70-99) Microbiology 04/22/20 Blood Culture - Preliminary, Resulted NO GROWTH AFTER 2 DAYS Medications Current Medications Albumin Human 200 ml @ 200 mls/hr 1X PRN PRN IV Hypotension; Start 04/25/20 at 08:15; Stop 04/25/20 at 14:14 Apixaban (Eliquis) 5 mg BID PO Last administered on 04/24/20at 20:23; Start 04/24/20 at 21:00 Dopamine HCl/ Dextrose 250 ml @ 10.031 mls/ hr CONT PRN IV SEE I/O RECORD Last administered on 04/24/20at 12:02; Start 04/24/20 at 11:45; Stop 04/24/20 at 13:33; Status DC Dopamine HCl/ Dextrose 250 ml @ As Directed STK-MED ONCE IV ; Start 04/24/20 at 11:47; Stop 04/24/20 at 11:47; Status DC Info (CONTRAST GIVEN -- Rx MONITORING) 1 each PRN DAILY PRN MC SEE COMMENTS; Start 04/24/20 at 10:30; Stop 04/26/20 at 10:29 Info (PHARMACY MONITORING -- do not chart) 1 each PRN DAILY PRN MC SEE COMMENTS; Start 04/25/20 at 08:15 Info (PHARMACY MONITORING -- do not chart) 1 each PRN DAILY PRN MC SEE COMMENTS; Start 04/25/20 at 08:15 Iohexol (Omnipaque 350 Mg/ml) 100 ml 1X ONCE IV Last administered on 04/24/20at 10:54; Start 04/24/20 at 10:30; Stop 04/24/20 at 10:31; Status DC Norepinephrine Bitartrate 8 mg/ Dextrose 258 ml @ 20.705 mls/ hr CONT PRN IV PER PROTOCOL; Start 04/24/20 at 13:30 Prochlorperazine Edisylate (Compazine) 5 mg PRN Q6HRS PRN IV NAUSEA/VOMITING Last administered on 04/24/20at 19:14; Start 04/24/20 at 14:45 Remdesivir 100 mg/ Sodium Chloride 230 ml @ 460 mls/hr Q24H IV Last administered on 04/24/20at 11:10; Start 04/24/20 at 11:00; Stop 04/27/20 at 11:29 Sodium Chloride 1,000 ml @ 400 mls/hr Q2H30M PRN IV PATENCY; Start 04/25/20 at 08:15; Stop 04/25/20 at 20:14 Sodium Chloride 1,000 ml @ 1,000 mls/hr Q1H PRN IV hypotension; Start 04/25/20 at 08:15; Stop 04/25/20 at 14:14 Vitals/I & O Vital Sign - Last 24 Hours 04/24/20 04/24/20 04/24/20 04/24/20 08:55 08:56 08:57 08:58 Pulse 107 107 107 107 B/P (MAP) 126/88 126/88 126/88 126/88 04/24/20 04/24/20 04/24/20 04/24/20 09:00 09:14 10:00 11:00 Pulse 126 105 100 Resp 20 22 20 B/P (MAP) 104/80 (88) 96/71 (79) 123/77 (92) Pulse Ox 82 93 92 89 O2 Delivery Venturi Mask Venturi Mask Venturi Mask Venturi Mask O2 Flow Rate 15.0 15.0 15.0 15.0 04/24/20 04/24/20 04/24/20 04/24/20 11:30 11:45 12:00 12:00 Temp 97.8 97.8 Pulse 102 90 90 Resp 20 18 18 B/P (MAP) 63/42 (49) 82/49 (60) 86/58 (67) Pulse Ox 90 94 92 O2 Delivery Venturi Mask Venturi Mask Venturi Mask Venturi Mask O2 Flow Rate 15.0 15.0 15.0 15.0 04/24/20 04/24/20 04/24/20 04/24/20 12:15 14:00 15:00 15:55 Pulse 106 85 95 Resp 18 18 B/P (MAP) 97/52 (67) 99/73 (82) 107/54 (71) Pulse Ox 98 97 O2 Delivery Nasal Cannula Nasal Cannula Nasal Cannula O2 Flow Rate 7.0 7.0 7.0 04/24/20 04/24/20 04/24/20 04/24/20 16:00 17:00 18:00 19:00 Temp 98.2 98.2 Pulse 92 108 113 79 Resp 18 20 20 18 B/P (MAP) 105/54 (71) 88/67 (74) 96/68 (77) 98/59 (72) Pulse Ox 99 99 96 98 O2 Delivery Nasal Cannula Nasal Cannula Nasal Cannula Nasal Cannula O2 Flow Rate 7.0 7.0 7.0 7.0 04/24/20 04/24/20 04/24/20 04/24/20 20:00 20:00 20:24 20:24 Temp 97.7 97.7 Pulse 90 78 76 Resp 18 B/P (MAP) 108/52 (70) 108/52 108/52 Pulse Ox 98 O2 Delivery Nasal Cannula Nasal Cannula O2 Flow Rate 7.0 7.0 1204/24/20 04/24/20 04/24/20 21:00 21:50 22:00 23:00 Pulse 89 89 86 Resp 18 18 20 B/P (MAP) 111/58 (75) 103/65 (78) 115/64 (81) Pulse Ox 100 88 98 100 O2 Delivery Nasal Cannula Nasal Cannula Nasal Cannula Nasal Cannula O2 Flow Rate 7.0 7.0 9.0 7.0 04/25/20 04/25/20 04/25/20 04/25/20 00:00 00:00 01:00 01:15 Temp 97.0 97.0 Pulse 93 107 Resp 14 20 B/P (MAP) 114/65 (81) 87/66 (73) 119/76 (90) Pulse Ox 95 95 O2 Delivery Nasal Cannula Nasal Cannula Nasal Cannula O2 Flow Rate 5.0 5.0 5.0 04/25/20 04/25/20 04/25/20 04/25/20 02:00 03:00 03:30 04:00 Temp 97.7 97.7 Pulse 104 102 102 Resp 18 12 12 B/P (MAP) 110/75 (87) 91/61 (71) 82/61 (68) Pulse Ox 97 100 94 O2 Delivery Nasal Cannula Nasal Cannula Nasal Cannula Nasal Cannula O2 Flow Rate 7.0 7.0 7.0 7.0 04/25/20 04/25/20 04/25/20 04/25/20 04:15 05:00 05:15 08:00 Pulse 100 Resp 22 B/P (MAP) 101/73 (82) 102/65 (77) Pulse Ox 87 92 O2 Delivery Nasal Cannula Nasal Cannula Venturi Mask O2 Flow Rate 7.0 10.0 15.0 Intake and Output 04/24/20 04/24/20 04/25/20 15:00 23:00 07:00 Intake Total 881.45 ml 440 ml Output Total 650 ml 0 ml 0 ml Balance 231.45 ml 440 ml 0 ml Justifications for Admission Other Justification YARELIS FONTENOT MD Apr 25, 2020 08:28
[2020-04-25 08:49] LABS: ALBUMIN 2.4 g/dL (3.4-5.0); CALCIUM 9.1 mg/dL (8.5-10.1); CREATININE 4.8 mg/dL (0.6-1.0); GFR 9.4; MAGNESIUM 2.5 mg/dL (1.8-2.4); PHOSPHORUS 7.7 mg/dL (2.6-4.7); POTASSIUM 4.7 mmol/L (3.5-5.1)
[2020-04-25] MEDS: METOPROLOL TART IMMED RELEASE 25 MG TABLET. PO SCH ×2 (08:52→20:41)
[2020-04-25] MEDS: INSULIN LISPRO 300 UNITS/3 ML VIAL. SQ SCH ×3 (08:53→18:16)
[2020-04-25] MEDS: LACTOBACILLUS RHAMNOSUS GG 1 CAPSULE. PO SCH ×2 (09:00→20:39)
[2020-04-25] MEDS: SODIUM BICARBONATE 650 MG TABLET. PO SCH ×3 (09:00→20:39)
[2020-04-25] MEDS: LOSARTAN POTASSIUM 50 MG TABLET. PO SCH (09:00)
[2020-04-25] MEDS: LABETALOL HCL 200 MG TABLET PO SCH (09:00)
--- NOTE | 2020-04-25 09:00 | NUR ---
Non administered morning doses of Renvela, sodium bicarb, and gabapentin. Patient to receive hemodialysis this morning. Will administer daily meds when dialysis is completed.
[2020-04-25] MEDS: GABAPENTIN 100 MG CAPSULE. PO SCH ×3 (10:00→20:39)
--- NOTE | 2020-04-25 10:36 | PDOC ---
CARDIO Progress Notes Date and Time Date of Service 04/25/2020 Time of Evaluation 0940 Subjective Subjective: Other (not more SOA. on ventimask ) Comments: brief period of unresponsiveness yesterday evening getting up to chair Vitals Vitals Vital Signs Date Time Temp Pulse Resp B/P (MAP) Pulse Ox O2 Delivery O2 Flow Rate FiO2 04/25/20 10:00 120 20 81/64 (70) 91 Venturi Mask 15.0 04/25/20 08:00 97.9 97.9 Weight Weight [ ] Input and Output Intake and Output Intake and Output 04/25/20 07:00 Intake Total 1321.45 ml Output Total 650 ml Balance 671.45 ml Intake Oral 720 ml IV Total 401.45 ml Other 200 ml Output Urine Total 0 ml Emesis 650 ml Laboratory Labs Laboratory Tests Test 04/24/20 12:29 04/24/20 16:44 04/24/20 20:21 04/25/20 07:31 Glucose (Fingerstick) 278 mg/dL (70-99) 188 mg/dL (70-99) 242 mg/dL (70-99) Sodium Level 137 mmol/L (136-145) Potassium Level 4.7 mmol/L (3.5-5.1) Chloride Level 97 mmol/L (98-107) Carbon Dioxide Level 26 mmol/L (21-32) Anion Gap 14 (6-14) Blood Urea Nitrogen 62 mg/dL (7-20) Creatinine 4.8 mg/dL (0.6-1.0) Estimated GFR (Cockcroft-Gault) 9.4 Glucose Level 199 mg/dL (70-99) Calcium Level 9.1 mg/dL (8.5-10.1) Phosphorus Level 7.7 mg/dL (2.6-4.7) Magnesium Level 2.5 mg/dL (1.8-2.4) Albumin 2.4 g/dL (3.4-5.0) Microbiology Micro Microbiology 04/22/20 Blood Culture - Preliminary, Resulted NO GROWTH AFTER 3 DAYS Physical Exam HEENT: Neck Supple W Full Motion Chest: Symmetric Heart: irregularly irregular (AFIB) Abdomen: Other (obese ) Extremities: Other (trace bilateral LE edema ) Other Exams Presently asleep, visual exam, stable, no distress with venti mask receiving HD currently discussed with operations staff specialist security Assessment 1. Acute respiratory failure with COVID PNA. Remdesivir, Decadron initiated. + approximately 14 days ago. CTA negative for PE 2. Acute on chronic diastolic CHF; Echo 08/13 with preserved LV systolic function 3. ESRD on HD 4. Mild troponin elevation; highest 0.8. Most probable type II, demand ischemia. CP free. 5. CAD; recent cath with diffused LAD disease with fixed defect on MPI. No lesions needing intervention. 6. Leukocytosis, lactic acidosis 7. Accelerated HTN; controlled 8. PAFIB with RVR; paroxysmal RVR, currently in 120-130s after HD initiation 9. Diabetes, II 10. Hyperlipidemia 11. Morbid obesity 12. LE PAD: no claudications or wounds. 13. Thrombocytopenia; PLT 105 14. Near syncope; episode yeset Recommendations No pressors warranted at this time MAP 71. Levophed as warranted. Hold BP meds except for metoprolol for rate control per BP trend. If sustained RVR after HD then will titrate up BB if Bp adequate and/or possibly provide one dose of digoxin IV Secondary prevention measures ASA, statin Fluid offloading via HD Eliquis for stroke prophylaxis Ongoing lung optimization, treatment of PNA as per pulm. Justicifation of Admission Dx: Justifications for Admission: Justification of Admission Dx: Yes JOVANY ALEXIS APRN Apr 25, 2020 10:36
[2020-04-25] MEDS: CEFEPIME HCL IV Push 1 GM VIAL. IVP SCH (12:15)
[2020-04-25] MEDS: REMDESIVIR 100mg in NORMAL SALINE 250ML X 4 DAYS IV SCH (12:16)
[2020-04-25] MEDS: APIXABAN 5 MG TABLET. PO SCH ×2 (12:23→20:39)
[2020-04-25] MEDS: FOLIC/VIT B COMP W-C (RENAL) TABLET. PO SCH (12:24)
[2020-04-25] MEDS: DEXAMETHASONE 4 MG TABLET PO SCH (12:24)
[2020-04-25] MEDS: ASPIRIN ENTERIC COATED 81 MG TABLET.DR. PO SCH (12:24)
[2020-04-25] MEDS: ISOSORBIDE MONONITRATE ER 30 MG TAB.ER.24H PO SCH (12:26)
[2020-04-25] MEDS: VANCOMYCIN PER PHARMACY MC PRN (12:29)
--- NOTE | 2020-04-25 12:35 | PDOC ---
DATE OF SERVICE DATE: 04/25/20 TIME: 12:28 SUBJECTIVE ROS states feeling better , OBJECTIVE Vital Signs Vital Signs Date Time Temp Pulse Resp B/P (MAP) Pulse Ox O2 Delivery O2 Flow Rate FiO2 04/25/20 12:26 101 101/54 04/25/20 12:00 20 92 Venturi Mask 15.0 04/25/20 08:00 97.9 97.9 I & 0 Intake and Output 04/25/20 07:00 Intake Total 1321.45 ml Output Total 650 ml Balance 671.45 ml Intake Oral 720 ml IV Total 401.45 ml Other 200 ml Output Urine Total 0 ml Emesis 650 ml PHYSICAL EXAM Physical Exam GEN: Propped up in bed, NAD HEEN OM moist, On O2 Venturi mask NECK: supple CVS: S1S2 RESP: Non labored GI: Soft, NT : No CVA tenderness, No Suprapubic Tenderness NEURO Ax3, grossly normal SKIN No Rash EXT mild LE edema DIAGNOSIS/ASSESSMENT Assessment & Plan ESRD- on HD TTS since July 2019 Seen on Dialysis, tolerating well, discussed treatment plan with Zack Patient reports significant RRF, Bladder scan no PVR Ac Resp Failure- Positive for CoVid at the dialysis unit, / Pneumonia . On vapotherm , stable CoVID 19 diagnosed recently COMMENT/RELEVANT DATA Meds Current Medications Medications (Trade) Dose Ordered Sig/Joshua Start Time Stop Time Status Last Admin Dose Admin Albumin Human 200 ml @ 200 mls/hr 1X PRN PRN 04/25/20 08:15 04/25/20 14:14 Apixaban (Eliquis) 5 mg BID 04/24/20 21:00 04/25/20 12:23 5 MG Aspirin (Ecotrin) 81 mg DAILYWBKFT 04/23/20 08:00 04/25/20 12:24 81 MG Atorvastatin Calcium (Lipitor) 40 mg QHS 04/22/20 21:00 04/24/20 20:24 40 MG Azithromycin 250 ml @ 250 mls/hr 1X ONCE 04/22/20 11:00 04/22/20 11:59 DC 04/22/20 17:05 250 MLS/HR Azithromycin 250 mg/Sodium Chloride 250 ml @ 250 mls/hr Q24H 04/23/20 17:00 04/26/20 17:00 04/24/20 17:20 250 MLS/HR Aztreonam (Azactam) 2 gm 1X ONCE 04/22/20 10:45 04/22/20 10:53 DC Cefepime HCl (Maxipime) 1 gm Q24H 04/23/20 09:00 04/25/20 12:15 1 GM Dexamethasone (Decadron) 6 mg DAILYWBKFT 04/23/20 08:00 04/25/20 12:24 6 MG Dexamethasone Sodium Phosphate (Decadron) 10 mg 1X ONCE 04/22/20 17:30 04/22/20 17:31 DC 04/22/20 17:34 10 MG Dextrose (Dextrose 50%-Water Syringe) 12.5 gm PRN Q15MIN PRN 04/22/20 17:15 Diltiazem HCl (Cardizem Iv Push) 20 mg 1X ONCE 04/22/20 08:30 04/22/20 08:33 DC 04/22/20 09:21 20 MG Diltiazem HCl 125 mg/Sodium Chloride 125 ml @ 5 mls/hr CONT PRN 04/22/20 08:45 04/23/20 15:41 DC 04/23/20 01:56 15 MLS/HR Dopamine HCl/ Dextrose 250 ml @ As Directed STK-MED ONCE 04/24/20 11:47 04/24/20 11:47 DC Enoxaparin Sodium (Lovenox 40mg Syringe) 40 mg Q24H 04/22/20 17:15 UNV Enoxaparin Sodium (Lovenox Per Pharmacy Treatment Dosing) 1 each PRN DAILY PRN 04/22/20 17:30 UNV Furosemide (Lasix) 60 mg 1X ONCE 04/22/20 08:45 04/22/20 08:46 DC 04/22/20 09:25 60 MG Gabapentin (Neurontin) 100 mg TID 04/25/20 10:00 04/25/20 12:26 100 MG Guaifenesin/ Codeine Phosphate (Robitussin Ac) 10 ml PRN Q6HRS PRN 04/22/20 08:45 04/22/20 09:38 10 ML Heparin Sodium (Porcine) (Heparin Sodium) 1,600 unit PRN Q6HRS PRN 04/23/20 11:00 04/24/20 13:33 DC 04/24/20 02:18 1,600 UNIT Heparin Sodium/ Dextrose 250 ml @ 20 mls/hr CONT PRN 04/23/20 11:00 04/24/20 13:33 DC 04/23/20 23:59 16.976 MLS/HR Info (CONTRAST GIVEN -- Rx MONITORING) 1 each PRN DAILY PRN 04/24/20 10:30 04/26/20 10:29 Info (PHARMACY MONITORING -- do not chart) 1 each PRN DAILY PRN 04/25/20 08:15 Insulin Human Lispro (HumaLOG) 0-7 UNITS TIDWMEALS 04/22/20 18:00 04/25/20 08:53 2 UNITS Iohexol (Omnipaque 350 Mg/ml) 100 ml 1X ONCE 04/24/20 10:30 04/24/20 10:31 DC 04/24/20 10:54 100 ML Isosorbide Mononitrate (Imdur) 60 mg DAILY 04/23/20 09:00 04/25/20 12:26 60 MG Labetalol HCl (Trandate) 200 mg BID 04/22/20 21:00 04/25/20 10:30 DC 04/24/20 08:57 200 MG Lactobacillus Rhamnosus (Culturelle) 1 cap BID 04/23/20 21:00 04/24/20 20:23 1 CAP Losartan Potassium (Cozaar) 100 mg DAILY 04/23/20 09:00 04/24/20 08:55 100 MG Metoprolol Tartrate (Lopressor) 12.5 mg BID 04/23/20 17:00 04/25/20 08:52 12.5 MG Metronidazole 100 ml @ 100 mls/hr 1X ONCE 04/22/20 10:45 04/22/20 10:53 DC Morphine Sulfate (Morphine Sulfate) 2 mg PRN Q2HR PRN 04/22/20 11:30 04/23/20 11:29 DC 04/22/20 22:03 2 MG Nitroglycerin (Nitro-Bid Oint) 1.5 inch 1X ONCE 04/22/20 08:30 04/22/20 08:33 DC 04/22/20 09:35 1 INCH Nitroglycerin/ Dextrose 250 ml @ 0 mls/hr 1X ONCE 04/22/20 08:30 04/22/20 08:39 DC Norepinephrine Bitartrate 8 mg/ Dextrose 258 ml @ 20.705 mls/ hr CONT PRN 04/24/20 13:30 Ondansetron HCl (Zofran) 8 mg STK-MED ONCE 04/23/20 18:00 04/24/20 08:20 DC Prochlorperazine Edisylate (Compazine) 5 mg PRN Q6HRS PRN 04/24/20 14:45 04/24/20 19:14 5 MG Remdesivir 100 mg/ Sodium Chloride 230 ml @ 460 mls/hr Q24H 04/24/20 11:00 04/27/20 11:29 04/25/20 12:16 460 MLS/HR Remdesivir 200 mg/ Sodium Chloride 210 ml @ 210 mls/hr 1X ONCE 04/23/20 11:00 04/23/20 11:59 DC 04/23/20 14:03 210 MLS/HR Sevelamer Carbonate (Renvela) 800 mg TIDWMEALS 04/23/20 08:00 04/25/20 12:23 800 MG Sodium Bicarbonate (Sodium Bicarbonate) 650 mg TID 04/22/20 21:00 04/25/20 12:27 650 MG Sodium Chloride 1,000 ml @ 400 mls/hr Q2H30M PRN 04/25/20 08:15 04/25/20 20:14 Vancomycin HCl (Vanco Per Pharmacy) 1 each PRN DAILY PRN 04/23/20 17:00 04/24/20 07:44 1 EACH Vancomycin HCl (Vancomycin Random Level) 1 each 1X ONCE 04/23/20 06:00 04/23/20 06:01 DC 04/23/20 06:00 1 EACH Vancomycin HCl 500 mg/Sodium Chloride 100 ml @ 100 mls/hr QTUTHSA 04/23/20 16:00 04/23/20 16:24 100 MLS/HR Vancomycin HCl 2 gm/Sodium Chloride 500 ml @ 250 mls/hr 1X ONCE 04/22/20 11:00 04/22/20 12:59 DC 04/22/20 12:35 250 MLS/HR Vitamin B Complex/ Vitamin C (Amaya-Shabana) 1 tab DAILY 04/23/20 09:00 04/25/20 12:24 1 TAB Lab Laboratory Tests Test 04/24/20 12:29 04/24/20 16:44 04/24/20 20:21 04/25/20 07:31 Glucose (Fingerstick) 278 mg/dL (70-99) 188 mg/dL (70-99) 242 mg/dL (70-99) Sodium Level 137 mmol/L (136-145) Potassium Level 4.7 mmol/L (3.5-5.1) Chloride Level 97 mmol/L (98-107) Carbon Dioxide Level 26 mmol/L (21-32) Anion Gap 14 (6-14) Blood Urea Nitrogen 62 mg/dL (7-20) Creatinine 4.8 mg/dL (0.6-1.0) Estimated GFR (Cockcroft-Gault) 9.4 Glucose Level 199 mg/dL (70-99) Calcium Level 9.1 mg/dL (8.5-10.1) Phosphorus Level 7.7 mg/dL (2.6-4.7) Magnesium Level 2.5 mg/dL (1.8-2.4) Albumin 2.4 g/dL (3.4-5.0) Results All relevant outside records, renal labs, imaging studies, telemetry/EKG's were reviewed. Justicifation of Admission Dx: Justifications for Admission: Justification of Admission Dx: Yes HIMANSHU MCGOVERN MD Apr 25, 2020 12:35
[2020-04-25] MEDS ORDERED: DIGOXIN IV 500 MCG/2 ML AMPUL. IV ONE (13:45)
--- NOTE | 2020-04-25 15:11 | NUR ---
SS following up with discharge planning. SS reviewed pt chart and discussed with pt RN. Pt is currently requiring oxygen via nasal canula. COVID19 positive. Pt on IV Remdesivir, IV Azithromycin, IV Cefepime, and IV Vancomycin. Pt has hemodialysis. SS will continue to follow for discharge planning.
[2020-04-25] MEDS: VANCOMYCIN 500 MG in IV NORMAL SALINE 100ML 100 ML IV SCH (15:32)
--- NOTE | 2020-04-25 17:00 | NUR ---
Patient transferred to room 246. Telephone report given to Gaviota Ellington. Patient belongings with patient at time of transfer.
[2020-04-25] MEDS: AZITHROMYCIN 250 MG in IV NORMAL SALINE 250ML 250 ML IV SCH (18:17)
[2020-04-25] MEDS: ATORVASTATIN CALCIUM 40 MG TABLET. PO SCH (20:39)
[2020-04-25] MEDS ORDERED: DARBEPOETIN ALFA 60 MCG/0.3 ML DISP.SYRIN. SQ SCH (21:00)
[2020-04-26 03:32] VITALS: BP 127/82
[2020-04-26 08:00] VITALS: BP 147/75
--- NOTE | 2020-04-26 08:08 | RAD ---
XR CHEST 1V INDICATION: Reason: chf/ 246 / Spl. Instructions: / History: . COMPARISON STUDY: 04/22/2020. FINDINGS: Lungs: Low lung volume. Progression of bilateral perihilar and basilar opacities. Indistinct pulmonar y vasculature. Pleura: Moderate right pleural effusion. Heart and Mediastinum: Stable cardiomediastinal silhouette and great vessels. Bones and Soft Tissues: Stable regional skeleton and soft tissues. IMPRESSION: 1. Progression of bilateral perihilar and basilar opacities. 2. Moderate right pleural effusion. Electronically signed by: Jordan Guerin MD (04/26/2020 8:06 AM) [id number]
[2020-04-26] MEDS: ANTI-COAG MONITOR BY PHARMACY. MC PRN (08:31)
[2020-04-26] MEDS: VANCOMYCIN PER PHARMACY MC PRN (08:31)
[2020-04-26] MEDS: ASPIRIN ENTERIC COATED 81 MG TABLET.DR. PO SCH (09:33)
[2020-04-26] MEDS: FOLIC/VIT B COMP W-C (RENAL) TABLET. PO SCH (09:33)
[2020-04-26] MEDS: LACTOBACILLUS RHAMNOSUS GG 1 CAPSULE. PO SCH ×2 (09:33→21:45)
[2020-04-26] MEDS: SODIUM BICARBONATE 650 MG TABLET. PO SCH ×3 (09:33→21:45)
[2020-04-26] MEDS: SEVELAMER CARBONATE 800 MG TABLET. PO SCH ×4 (09:34→17:00)
[2020-04-26] MEDS: GABAPENTIN 100 MG CAPSULE. PO SCH ×3 (09:34→21:47)
[2020-04-26] MEDS: APIXABAN 5 MG TABLET. PO SCH ×2 (09:34→21:45)
[2020-04-26] MEDS: METOPROLOL TART IMMED RELEASE 25 MG TABLET. PO SCH ×2 (09:36→21:46)
[2020-04-26] MEDS: DEXAMETHASONE 4 MG TABLET PO SCH (09:37)
[2020-04-26] MEDS: CEFEPIME HCL IV Push 1 GM VIAL. IVP SCH (09:46)
[2020-04-26] MEDS: INSULIN LISPRO 300 UNITS/3 ML VIAL. SQ SCH ×3 (10:46→17:00)
[2020-04-26] MEDS: REMDESIVIR 100mg in NORMAL SALINE 250ML X 4 DAYS IV SCH (10:47)
[2020-04-26 10:57] LABS: BASO % 0 % (0-3); EOS % 0 % (0-3); HEMATOCRIT 29.1 % (36.0-47.0); HEMOGLOBIN 9.1 g/dL (12.0-15.5); LYMPH # 0.7 x10^3/uL (1.0-4.8); LYMPH % 5 % (24-48); MEAN CORPUSCULAR HEMOGLOBIN 28 pg (25-35); MEAN CORPUSCULAR HGB CONC 31 g/dL (31-37); MEAN CORPUSCULAR VOLUME 89 fL (79-100); MONO # 0.6 x10^3/uL (0.0-1.1); MONO % 5 % (0-9); NEUT # 12.6 x10^3/uL (1.8-7.7); NEUT % 90 % (31-73); PLATELET COUNT 136 x10^3/uL (140-400); RED BLOOD COUNT 3.28 x10^6/uL (3.50-5.40); WHITE BLOOD COUNT 13.9 x10^3/uL (4.0-11.0)
--- NOTE | 2020-04-26 10:57 | PDOC ---
PROGRESS NOTES Date of Service: DATE: 04/26/20 TIME: 10:57 Subjective Subjective pain in rt calf Objective Objective Vital Signs Date Time Temp Pulse Resp B/P (MAP) Pulse Ox O2 Delivery O2 Flow Rate FiO2 04/26/20 09:36 80 147/75 04/26/20 08:00 96.0 16 100 Nasal Cannula 8.0 96.0 Intake and Output 04/26/20 07:00 Intake Total 980 ml Output Total 0 ml Balance 980 ml Intake Oral 980 ml Output Urine Total 0 ml Physical Exam Abdomen: Soft Heart: Normal S2, Other (AFIB ) Extremities: Normal pulses, Other (trace bilateral LE edema ) General: Alert, Oriented X3, Cooperative, mild distress HEENT: Atraumatic, Mucous membr. moist/pink Lungs: Other (on BIPAP) MUSCULOSKELETAL: Osteoarthritic changes both hands Neuro: Normal speech, Sensation intact Psych/Mental Status: Mental status NL Skin: No significant lesion Diagnosis Problem List Problems Medical Problems: (1) Acute pulmonary edema Status: Acute (2) Acute respiratory failure with hypoxia Status: Acute (3) Atrial fibrillation with RVR Status: Acute (4) COVID-19 Status: Acute (5) NSTEMI (non-ST elevated myocardial infarction) Status: Acute (6) Septic shock Status: Acute Assessment Assessment Problems Medical Problems: (1) Acute pulmonary edema Status: Acute (2) Acute respiratory failure with hypoxia Status: Acute (3) Atrial fibrillation with RVR Status: Acute (4) COVID-19 Status: Acute (5) NSTEMI (non-ST elevated myocardial infarction) Status: Acute (6) Septic shock Status: Acute FINAL IMPRESSION: 1. Shortness of breath, combination of heart failure as well as pneumonia. 2. Recent COVID infection. 3. Coronary artery disease. She has a distal LAD disease, had a cardiac catheterization 07/2019. 4. End-stage renal disease, on hemodialysis. 5. Insulin-dependent diabetes. 6. Diastolic heart failure. 7. Hyperlipidemia. PLAN:on Eliquis po bid for a fib CTA -neg for PE on remdisivr . DIalysis tomorrow Off heparin drip on nasal cnnula off iv cardizam for a fib. dexamethasome IV antibiotics. zithromax+vanco+cefepime slight nicanor troponin spoke with Pulmonary+cardiology add gabapentin for leg pain for neuropathy At this time, the patient was admitted to the hospital. Cultures were done, started on broad-spectrum antibiotics, Zithromax given, vancomycin as well as cefepime. Pulmonary is consulted. Cardiology is consulted for atrial fibrillation, put on Cardizem drip and breathing treatments, oxygen, BiPAP and Ventimask and also DVT prophylaxis with Lovenox and see how she responds. The patient is almost more than a week with the COVID. I am not sure remdesivir is going to be any helpful at this point, we will check with Pulmonology. Plan Plan of Care Problems Medical Problems: (1) Acute pulmonary edema Status: Acute (2) Acute respiratory failure with hypoxia Status: Acute (3) Atrial fibrillation with RVR Status: Acute (4) COVID-19 Status: Acute (5) NSTEMI (non-ST elevated myocardial infarction) Status: Acute (6) Septic shock Status: Acute Comment Review of Relevant I have reviewed the following items allen (where applicable) has been applied. Labs Laboratory Tests Test 04/25/20 12:36 04/25/20 17:32 04/25/20 20:07 04/26/20 07:15 Glucose (Fingerstick) 157 mg/dL (70-99) 187 mg/dL (70-99) 239 mg/dL (70-99) 283 mg/dL (70-99) Microbiology 04/22/20 Blood Culture - Preliminary, Resulted NO GROWTH AFTER 4 DAYS Medications Current Medications Darbepoetin Aman (ARANESP for DIALYSIS PTS) 60 mcg WEEKLYHS SQ Last administered on 04/25/20at 20:41; Start 04/25/20 at 21:00 Digoxin (Lanoxin) 500 mcg 1X ONCE IV Last administered on 04/25/20at 14:23; Start 04/25/20 at 13:45; Stop 04/25/20 at 13:53; Status DC Info (Anti-Coagulation Monitoring By Pharmacy) 1 each PRN DAILY PRN MC SEE COMMENTS Last administered on 04/26/20at 08:31; Start 04/26/20 at 08:30 Vitals/I & O Vital Sign - Last 24 Hours 04/25/20 04/25/20 04/25/20 04/25/20 11:00 11:38 12:00 12:26 Pulse 121 101 101 Resp 20 20 B/P (MAP) 102/60 (74) 101/54 (70) 101/54 Pulse Ox 90 92 O2 Delivery Venturi Mask Venturi Mask Venturi Mask O2 Flow Rate 15.0 15.0 15.0 04/25/20 04/25/20 04/25/20 04/25/20 13:00 14:00 14:23 16:00 Temp 96.4 97.6 96.4 97.6 Pulse 103 99 113 116 Resp 22 20 22 B/P (MAP) 106/63 (77) 96/69 (78) 91/67 113/71 (85) Pulse Ox 96 96 96 O2 Delivery Nasal Cannula Nasal Cannula Nasal Cannula O2 Flow Rate 10.0 7.0 7.0 04/25/20 04/25/20 04/25/20 04/25/20 18:00 18:00 19:59 20:16 Temp 96.5 96.6 96.5 96.6 Pulse 82 89 Resp 16 16 B/P (MAP) 115/85 (95) 115/61 (79) Pulse Ox 91 94 O2 Delivery Nasal Cannula Nasal Cannula Nasal Cannula Nasal Cannula O2 Flow Rate 7.0 7.0 8.0 7.0 04/25/20 04/25/20 04/26/20 04/26/20 20:41 23:52 03:32 08:00 Temp 96.0 96.5 96.0 96.0 96.5 96.0 Pulse 89 93 120 80 Resp 16 16 16 B/P (MAP) 115/61 158/76 (103) 127/82 (97) 147/75 (99) Pulse Ox 95 94 100 O2 Delivery Nasal Cannula Nasal Cannula Nasal Cannula O2 Flow Rate 8.0 8.0 8.0 04/26/20 09:36 Pulse 80 B/P (MAP) 147/75 Intake and Output 04/25/20 04/25/20 04/26/20 15:00 23:00 07:00 Intake Total 480 ml 200 ml 300 ml Output Total 0 ml 0 ml 0 ml Balance 480 ml 200 ml 300 ml Justifications for Admission Other Justification YARELIS FONTENOT MD Apr 26, 2020 10:57
[2020-04-26] MEDS ORDERED: MAGNESIUM SULFATE 2GM 50 ML IV PRN (11:00)
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
[2020-04-26 11:20] VITALS: BP 156/93
[2020-04-26 11:23] LABS: CREATININE 4.3 mg/dL (0.6-1.0); GFR 10.7; POTASSIUM 4.4 mmol/L (3.5-5.1)
[2020-04-26 11:28] LABS: ALBUMIN 2.5 g/dL (3.4-5.0); DIRECT BILIRUBIN 0.8 mg/dL (0.0-0.2); TOTAL BILIRUBIN 1.7 mg/dL (0.2-1.0); TOTAL PROTEIN 6.4 g/dL (6.4-8.2)
[2020-04-26] MEDS ORDERED: DIALYSIS PATIENT. MC PRN ×2 (11:45)
[2020-04-26] MEDS ORDERED: IV NORMAL SALINE 1000ML BAG 1,000 ML IV PRN ×2 (11:45)
[2020-04-26 12:10] LABS: URIC ACID 7.7 mg/dL (2.6-6.0)
--- NOTE | 2020-04-26 12:15 | PDOC ---
PULMONARY PROGRESS NOTES DATE: 04/26/20 TIME: 12:13 Subjective Remains on 8 liters N/C Afebrile overnight No other concerns overnight from nursing Vitals Vital Signs Date Time Temp Pulse Resp B/P (MAP) Pulse Ox O2 Delivery O2 Flow Rate FiO2 04/26/20 11:20 95.7 105 16 156/93 (114) 95 Nasal Cannula 8.0 95.7 ROS: No Nausea, No Chest Pain, No Abdominal Pain, No Increase Cough General: Alert Lungs: Clear Cardiovascular: S1, S2 Abdomen: Soft Neuro Exam: Alert Extremities: No Edema Skin: Warm Labs Laboratory Tests Test 04/24/20 12:29 04/24/20 16:44 04/24/20 20:21 04/25/20 07:31 Glucose (Fingerstick) 278 mg/dL (70-99) 188 mg/dL (70-99) 242 mg/dL (70-99) Sodium Level 137 mmol/L (136-145) Potassium Level 4.7 mmol/L (3.5-5.1) Chloride Level 97 mmol/L (98-107) Carbon Dioxide Level 26 mmol/L (21-32) Anion Gap 14 (6-14) Blood Urea Nitrogen 62 mg/dL (7-20) Creatinine 4.8 mg/dL (0.6-1.0) Estimated GFR (Cockcroft-Gault) 9.4 Glucose Level 199 mg/dL (70-99) Calcium Level 9.1 mg/dL (8.5-10.1) Phosphorus Level 7.7 mg/dL (2.6-4.7) Magnesium Level 2.5 mg/dL (1.8-2.4) Albumin 2.4 g/dL (3.4-5.0) Test 04/25/20 08:50 04/25/20 12:36 04/25/20 17:32 04/25/20 20:07 Glucose (Fingerstick) 221 mg/dL (70-99) 157 mg/dL (70-99) 187 mg/dL (70-99) 239 mg/dL (70-99) Test 04/26/20 07:15 04/26/20 09:45 04/26/20 11:48 Glucose (Fingerstick) 283 mg/dL (70-99) 324 mg/dL (70-99) White Blood Count 13.9 x10^3/uL (4.0-11.0) Red Blood Count 3.28 x10^6/uL (3.50-5.40) Hemoglobin 9.1 g/dL (12.0-15.5) Hematocrit 29.1 % (36.0-47.0) Mean Corpuscular Volume 89 fL (79-100) Mean Corpuscular Hemoglobin 28 pg (25-35) Mean Corpuscular Hemoglobin Concent 31 g/dL (31-37) Red Cell Distribution Width 18.0 % (11.5-14.5) Platelet Count 136 x10^3/uL (140-400) Neutrophils (%) (Auto) 90 % (31-73) Lymphocytes (%) (Auto) 5 % (24-48) Monocytes (%) (Auto) 5 % (0-9) Eosinophils (%) (Auto) 0 % (0-3) Basophils (%) (Auto) 0 % (0-3) Neutrophils # (Auto) 12.6 x10^3/uL (1.8-7.7) Lymphocytes # (Auto) 0.7 x10^3/uL (1.0-4.8) Monocytes # (Auto) 0.6 x10^3/uL (0.0-1.1) Eosinophils # (Auto) 0.0 x10^3/uL (0.0-0.7) Basophils # (Auto) 0.0 x10^3/uL (0.0-0.2) Sodium Level 136 mmol/L (136-145) Potassium Level 4.4 mmol/L (3.5-5.1) Chloride Level 96 mmol/L (98-107) Carbon Dioxide Level 27 mmol/L (21-32) Anion Gap 13 (6-14) Blood Urea Nitrogen 55 mg/dL (7-20) Creatinine 4.3 mg/dL (0.6-1.0) Estimated GFR (Cockcroft-Gault) 10.7 Glucose Level 290 mg/dL (70-99) Calcium Level 9.0 mg/dL (8.5-10.1) Total Bilirubin 1.7 mg/dL (0.2-1.0) Direct Bilirubin 0.8 mg/dL (0.0-0.2) Aspartate Amino Transf (AST/SGOT) 31 U/L (15-37) Alanine Aminotransferase (ALT/SGPT) 75 U/L (14-59) Alkaline Phosphatase 177 U/L (46-116) Total Protein 6.4 g/dL (6.4-8.2) Albumin 2.5 g/dL (3.4-5.0) Laboratory Tests Test 04/25/20 12:36 04/25/20 17:32 04/25/20 20:07 04/26/20 07:15 Glucose (Fingerstick) 157 mg/dL (70-99) 187 mg/dL (70-99) 239 mg/dL (70-99) 283 mg/dL (70-99) Test 04/26/20 09:45 04/26/20 11:48 White Blood Count 13.9 x10^3/uL (4.0-11.0) Red Blood Count 3.28 x10^6/uL (3.50-5.40) Hemoglobin 9.1 g/dL (12.0-15.5) Hematocrit 29.1 % (36.0-47.0) Mean Corpuscular Volume 89 fL (79-100) Mean Corpuscular Hemoglobin 28 pg (25-35) Mean Corpuscular Hemoglobin Concent 31 g/dL (31-37) Red Cell Distribution Width 18.0 % (11.5-14.5) Platelet Count 136 x10^3/uL (140-400) Neutrophils (%) (Auto) 90 % (31-73) Lymphocytes (%) (Auto) 5 % (24-48) Monocytes (%) (Auto) 5 % (0-9) Eosinophils (%) (Auto) 0 % (0-3) Basophils (%) (Auto) 0 % (0-3) Neutrophils # (Auto) 12.6 x10^3/uL (1.8-7.7) Lymphocytes # (Auto) 0.7 x10^3/uL (1.0-4.8) Monocytes # (Auto) 0.6 x10^3/uL (0.0-1.1) Eosinophils # (Auto) 0.0 x10^3/uL (0.0-0.7) Basophils # (Auto) 0.0 x10^3/uL (0.0-0.2) Sodium Level 136 mmol/L (136-145) Potassium Level 4.4 mmol/L (3.5-5.1) Chloride Level 96 mmol/L (98-107) Carbon Dioxide Level 27 mmol/L (21-32) Anion Gap 13 (6-14) Blood Urea Nitrogen 55 mg/dL (7-20) Creatinine 4.3 mg/dL (0.6-1.0) Estimated GFR (Cockcroft-Gault) 10.7 Glucose Level 290 mg/dL (70-99) Calcium Level 9.0 mg/dL (8.5-10.1) Total Bilirubin 1.7 mg/dL (0.2-1.0) Direct Bilirubin 0.8 mg/dL (0.0-0.2) Aspartate Amino Transf (AST/SGOT) 31 U/L (15-37) Alanine Aminotransferase (ALT/SGPT) 75 U/L (14-59) Alkaline Phosphatase 177 U/L (46-116) Total Protein 6.4 g/dL (6.4-8.2) Albumin 2.5 g/dL (3.4-5.0) Glucose (Fingerstick) 324 mg/dL (70-99) Medications Active Scripts Medications Dose Route/Sig Max Daily Dose Days Date Category Soliqua 100 Unit-33 Mcg/ml Pen (Insulin Glargine/Lixisenatide) 3 Ml Insuln.pen 3 Ml SQ PRN PRN 02/14/20 Reported Lidocaine-Prilocaine Cream (Lidocaine/Prilocaine) 30 Gm Cream..g. 30 Gm TP PRN PRN 02/14/20 Reported Nephro-Shabana Tablet (Folic Acid/Vitamin B Comp W-C) 0.8 Mg Tablet 1 Tab PO DAILY 02/14/20 Reported Sodium Bicarbonate 650 Mg Tablet 650 Mg PO TID 30 08/09/19 Rx Renvela (Sevelamer Carbonate) 800 Mg Tablet 800 Mg PO TIDWMEALS 08/09/19 Rx Aspirin Ec (Aspirin) 81 Mg Tablet. 81 Mg PO DAILYWBKFT 08/09/19 Rx Cozaar (Losartan Potassium) 50 Mg Tablet 100 Mg PO DAILY 30 08/09/19 Rx Labetalol Hcl 200 Mg Tablet 200 Mg PO BID 30 08/09/19 Rx Atorvastatin Calcium 40 Mg Tablet 1 Tab PO QHS 03/05/19 Reported Isosorbide Mononitrate Er (Isosorbide Mononitrate) 60 Mg Tab.er.24h 1 Tab PO DAILY 03/12/17 Reported Comments CXR 04/26/20 IMPRESSION: 1. Progression of bilateral perihilar and basilar opacities. 2. Moderate right pleural effusion. CTA chest IMPRESSION: 1. No evidence of pulmonary thromboembolic disease. 2. Diffuse bilateral groundglass opacities, likely multifocal infection or edema. 3. Large right pleural effusion with relaxation atelectasis of much of the right lower lobe. 4. Extensive coronary artery atherosclerotic disease. Impression . IMPRESSION: 1. Acute hypoxemic respiratory failure secondary to COVID-19 viral pneumonia. 2. COVID-19 viral pneumonia. 3. Possible bacterial pneumonia. 4. CTA neg for PE 5. Bilateral pulmonary infiltrates compatible with viral pneumonia, possible bacterial pneumonia. 6. Renal failure. 7. Diabetes. 8. Hypertension. Plan . PLAN: Continue current supplemental oxygen, now on N/C tolerating well Follow chest x-ray as needed continue eliquis Continue full course of remdesivir Continue IV steroids with slow taper, will need full 10 day course Continue empiric antibiotics, currently on azithromycin and vancomycin and cefepime, monitor with increasing WBC Follow nephrology recommendations in regards to hemodialysis Follow cardiology recommendations Physical therapy/Occupational Therapy DVT/GI prophylaxis Discussed with TANJA BHARDWAJ MD Apr 26, 2020 12:15
--- NOTE | 2020-04-26 13:00 | PDOC ---
PROGRESS NOTES Date of Service DATE: 04/26/20 TIME: 12:56 Subjective Subjective Patient seen and evaluated Objective Objective Vital Signs Date Time Temp Pulse Resp B/P (MAP) Pulse Ox O2 Delivery O2 Flow Rate FiO2 04/26/20 11:20 95.7 105 16 156/93 (114) 95 Nasal Cannula 8.0 95.7 Intake and Output 04/26/20 07:00 Intake Total 980 ml Output Total 0 ml Balance 980 ml Intake Oral 980 ml Output Urine Total 0 ml Physical Exam Physical Exam Visual examination secondary to Covid status. Assessment Assessment Problems Medical Problems: (1) Acute pulmonary edema Status: Acute (2) Acute respiratory failure with hypoxia Status: Acute (3) Atrial fibrillation with RVR Status: Acute (4) COVID-19 Status: Acute (5) NSTEMI (non-ST elevated myocardial infarction) Status: Acute (6) Septic shock Status: Acute Acute respiratory failure with COVID PNA. Remdesivir, Decadron initiated. + approximately 14 days ago. CTA negative for PE. Improving. Followed by the pulmonary service. Acute on chronic diastolic CHF; Echo 08/13 with preserved LV systolic function. Improved. ESRD on HD. Followed by renal. Mild troponin elevation; highest 0.8. type II, demand ischemia. CP free. CAD; recent cath with diffused LAD disease with fixed defect on MPI. No lesions needing intervention. Accelerated HTN; controlled PAFIB with RVR; paroxysmal RVR, rate improved. Diabetes, II Hyperlipidemia LE PAD: no claudications or wounds. Thrombocytopenia Near syncope; episode 2 days ago. Rhythm improved. Comment Review of Relevant I have reviewed the following items allen (where applicable) has been applied. Labs Laboratory Tests Test 04/24/20 16:44 04/24/20 20:21 04/25/20 07:31 04/25/20 08:50 Glucose (Fingerstick) 188 mg/dL (70-99) 242 mg/dL (70-99) 221 mg/dL (70-99) Sodium Level 137 mmol/L (136-145) Potassium Level 4.7 mmol/L (3.5-5.1) Chloride Level 97 mmol/L (98-107) Carbon Dioxide Level 26 mmol/L (21-32) Anion Gap 14 (6-14) Blood Urea Nitrogen 62 mg/dL (7-20) Creatinine 4.8 mg/dL (0.6-1.0) Estimated GFR (Cockcroft-Gault) 9.4 Glucose Level 199 mg/dL (70-99) Calcium Level 9.1 mg/dL (8.5-10.1) Phosphorus Level 7.7 mg/dL (2.6-4.7) Magnesium Level 2.5 mg/dL (1.8-2.4) Albumin 2.4 g/dL (3.4-5.0) Test 04/25/20 12:36 04/25/20 17:32 04/25/20 20:07 04/26/20 07:15 Glucose (Fingerstick) 157 mg/dL (70-99) 187 mg/dL (70-99) 239 mg/dL (70-99) 283 mg/dL (70-99) Test 04/26/20 09:45 04/26/20 11:48 White Blood Count 13.9 x10^3/uL (4.0-11.0) Red Blood Count 3.28 x10^6/uL (3.50-5.40) Hemoglobin 9.1 g/dL (12.0-15.5) Hematocrit 29.1 % (36.0-47.0) Mean Corpuscular Volume 89 fL (79-100) Mean Corpuscular Hemoglobin 28 pg (25-35) Mean Corpuscular Hemoglobin Concent 31 g/dL (31-37) Red Cell Distribution Width 18.0 % (11.5-14.5) Platelet Count 136 x10^3/uL (140-400) Neutrophils (%) (Auto) 90 % (31-73) Lymphocytes (%) (Auto) 5 % (24-48) Monocytes (%) (Auto) 5 % (0-9) Eosinophils (%) (Auto) 0 % (0-3) Basophils (%) (Auto) 0 % (0-3) Neutrophils # (Auto) 12.6 x10^3/uL (1.8-7.7) Lymphocytes # (Auto) 0.7 x10^3/uL (1.0-4.8) Monocytes # (Auto) 0.6 x10^3/uL (0.0-1.1) Eosinophils # (Auto) 0.0 x10^3/uL (0.0-0.7) Basophils # (Auto) 0.0 x10^3/uL (0.0-0.2) Sodium Level 136 mmol/L (136-145) Potassium Level 4.4 mmol/L (3.5-5.1) Chloride Level 96 mmol/L (98-107) Carbon Dioxide Level 27 mmol/L (21-32) Anion Gap 13 (6-14) Blood Urea Nitrogen 55 mg/dL (7-20) Creatinine 4.3 mg/dL (0.6-1.0) Estimated GFR (Cockcroft-Gault) 10.7 Glucose Level 290 mg/dL (70-99) Uric Acid 7.7 mg/dL (2.6-6.0) Calcium Level 9.0 mg/dL (8.5-10.1) Total Bilirubin 1.7 mg/dL (0.2-1.0) Direct Bilirubin 0.8 mg/dL (0.0-0.2) Aspartate Amino Transf (AST/SGOT) 31 U/L (15-37) Alanine Aminotransferase (ALT/SGPT) 75 U/L (14-59) Alkaline Phosphatase 177 U/L (46-116) Lactate Dehydrogenase 466 U/L (81-234) Total Protein 6.4 g/dL (6.4-8.2) Albumin 2.5 g/dL (3.4-5.0) Glucose (Fingerstick) 324 mg/dL (70-99) Laboratory Tests Test 04/25/20 17:32 04/25/20 20:07 04/26/20 07:15 04/26/20 09:45 Glucose (Fingerstick) 187 mg/dL (70-99) 239 mg/dL (70-99) 283 mg/dL (70-99) White Blood Count 13.9 x10^3/uL (4.0-11.0) Red Blood Count 3.28 x10^6/uL (3.50-5.40) Hemoglobin 9.1 g/dL (12.0-15.5) Hematocrit 29.1 % (36.0-47.0) Mean Corpuscular Volume 89 fL (79-100) Mean Corpuscular Hemoglobin 28 pg (25-35) Mean Corpuscular Hemoglobin Concent 31 g/dL (31-37) Red Cell Distribution Width 18.0 % (11.5-14.5) Platelet Count 136 x10^3/uL (140-400) Neutrophils (%) (Auto) 90 % (31-73) Lymphocytes (%) (Auto) 5 % (24-48) Monocytes (%) (Auto) 5 % (0-9) Eosinophils (%) (Auto) 0 % (0-3) Basophils (%) (Auto) 0 % (0-3) Neutrophils # (Auto) 12.6 x10^3/uL (1.8-7.7) Lymphocytes # (Auto) 0.7 x10^3/uL (1.0-4.8) Monocytes # (Auto) 0.6 x10^3/uL (0.0-1.1) Eosinophils # (Auto) 0.0 x10^3/uL (0.0-0.7) Basophils # (Auto) 0.0 x10^3/uL (0.0-0.2) Sodium Level 136 mmol/L (136-145) Potassium Level 4.4 mmol/L (3.5-5.1) Chloride Level 96 mmol/L (98-107) Carbon Dioxide Level 27 mmol/L (21-32) Anion Gap 13 (6-14) Blood Urea Nitrogen 55 mg/dL (7-20) Creatinine 4.3 mg/dL (0.6-1.0) Estimated GFR (Cockcroft-Gault) 10.7 Glucose Level 290 mg/dL (70-99) Uric Acid 7.7 mg/dL (2.6-6.0) Calcium Level 9.0 mg/dL (8.5-10.1) Total Bilirubin 1.7 mg/dL (0.2-1.0) Direct Bilirubin 0.8 mg/dL (0.0-0.2) Aspartate Amino Transf (AST/SGOT) 31 U/L (15-37) Alanine Aminotransferase (ALT/SGPT) 75 U/L (14-59) Alkaline Phosphatase 177 U/L (46-116) Lactate Dehydrogenase 466 U/L (81-234) Total Protein 6.4 g/dL (6.4-8.2) Albumin 2.5 g/dL (3.4-5.0) Test 04/26/20 11:48 Glucose (Fingerstick) 324 mg/dL (70-99) Microbiology 04/22/20 Blood Culture - Preliminary, Resulted NO GROWTH AFTER 4 DAYS Medications Current Medications Ondansetron HCl (Zofran) 8 mg 1X ONCE IVP Last administered on 04/22/20at 08:30; Start 04/22/20 at 08:00; Stop 04/22/20 at 08:01; Status DC Sodium Chloride 500 ml @ 500 mls/hr 1X ONCE IV ; Start 04/22/20 at 08:30; Stop 04/22/20 at 08:26; Status DC Diltiazem HCl (Cardizem Iv Push) 20 mg 1X ONCE IVP Last administered on 04/22/20at 09:21; Start 04/22/20 at 08:30; Stop 04/22/20 at 08:33; Status DC Nitroglycerin (Nitro-Bid Oint) 1.5 inch 1X ONCE TP Last administered on 04/22/20at 09:35; Start 04/22/20 at 08:30; Stop 04/22/20 at 08:33; Status DC Nitroglycerin/ Dextrose 250 ml @ 0 mls/hr 1X ONCE IV ; Start 04/22/20 at 08:30; Stop 04/22/20 at 08:39; Status DC Furosemide (Lasix) 60 mg 1X ONCE IVP Last administered on 04/22/20at 09:25; Start 04/22/20 at 08:45; Stop 04/22/20 at 08:46; Status DC Guaifenesin/ Codeine Phosphate (Robitussin Ac) 10 ml PRN Q6HRS PRN PO COUGH Last administered on 04/22/20at 09:38; Start 04/22/20 at 08:45 Diltiazem HCl 125 mg/Sodium Chloride 125 ml @ 5 mls/hr CONT PRN IV SEE I/O RECORD Last administered on 04/23/20at 01:56; Start 04/22/20 at 08:45; Stop 04/23/20 at 15:41; Status DC Aztreonam (Azactam) 2 gm 1X ONCE IVP ; Start 04/22/20 at 10:45; Stop 04/22/20 at 10:53; Status DC Vancomycin HCl (Vanco Per Pharmacy) 1 each PRN DAILY PRN MC SEE COMMENTS; Start 04/22/20 at 10:45; Stop 04/22/20 at 16:48; Status DC Metronidazole 100 ml @ 100 mls/hr 1X ONCE IV ; Start 04/22/20 at 10:45; Stop 04/22/20 at 10:53; Status DC Cefepime HCl (Maxipime) 2 gm 1X ONCE IVP Last administered on 04/22/20at 12:34; Start 04/22/20 at 11:00; Stop 04/22/20 at 11:01; Status DC Azithromycin 250 ml @ 250 mls/hr 1X ONCE IV Last administered on 04/22/20at 17:05; Start 04/22/20 at 11:00; Stop 04/22/20 at 11:59; Status DC Vancomycin HCl 2 gm/Sodium Chloride 500 ml @ 250 mls/hr 1X ONCE IV Last administered on 04/22/20at 12:35; Start 04/22/20 at 11:00; Stop 04/22/20 at 12:59; Status DC Ondansetron HCl (Zofran) 4 mg PRN Q8HRS PRN IV NAUSEA/VOMITING Last ad ministered on 04/23/20at 09:04; Start 04/22/20 at 11:30; Stop 04/23/20 at 11:29; Status DC Morphine Sulfate (Morphine Sulfate) 2 mg PRN Q2HR PRN IV PAIN Last administered on 04/22/20at 22:03; Start 04/22/20 at 11:30; Stop 04/23/20 at 11:29; Status DC Azithromycin 250 mg/Sodium Chloride 250 ml @ 250 mls/hr Q24H IV Last administered on 04/25/20at 18:17; Start 04/23/20 at 17:00; Stop 04/26/20 at 17:00 Vancomycin HCl (Vanco Per Pharmacy) 1 each PRN DAILY PRN MC SEE COMMENTS Last administered on 04/26/20at 08:31; Start 04/23/20 at 17:00 Vancomycin HCl (Vancomycin Random Level) 1 each 1X ONCE MC Last administered on 04/23/20at 06:00; Start 04/23/20 at 06:00; Stop 04/23/20 at 06:01; Status DC Aspirin (Ecotrin) 81 mg DAILYWBKFT PO Last administered on 04/26/20at 09:33; Start 04/23/20 at 08:00 Atorvastatin Calcium (Lipitor) 40 mg QHS PO Last administered on 04/25/20at 20:39; Start 04/22/20 at 21:00 Vitamin B Complex/ Vitamin C (Amaya-Shabana) 1 tab DAILY PO Last administered on 04/26/20at 09:33; Start 04/23/20 at 09:00 Labetalol HCl (Trandate) 200 mg BID PO Last administered on 04/24/20at 08:57; Start 04/22/20 at 21:00; Stop 04/25/20 at 10:30; Status DC Losartan Potassium (Cozaar) 100 mg DAILY PO Last administered on 04/24/20at 08:55; Start 04/23/20 at 09:00; Stop 04/25/20 at 13:50; Status DC Sevelamer Carbonate (Renvela) 800 mg TIDWMEALS PO Last administered on 04/26/20 09:34; Start 04/23/20 at 08:00; Stop 04/26/20 at 11:02; Status DC Sodium Bicarbonate (Sodium Bicarbonate) 650 mg TID PO Last administered on 04/26/20 09:33; Start 04/22/20 at 21:00 Dexamethasone (Decadron) 6 mg DAILYWBKFT PO Last administered on 04/26/20 09:37; Start 04/23/20 at 08:00 Dexamethasone Sodium Phosphate (Decadron) 10 mg 1X ONCE IVP Last administered on 04/22/20at 17:34; Start 04/22/20 at 17:30; Stop 04/22/20 at 17:31; Status DC Insulin Human Lispro (HumaLOG) 0-7 UNITS TIDWMEALS SQ Last administered on 04/26/20at 10:46; Start 04/22/20 at 18:00 Dextrose (Dextrose 50%-Water Syringe) 12.5 gm PRN Q15MIN PRN IV SEE COMMENTS; Start 04/22/20 at 17:15 Enoxaparin Sodium (Lovenox 40mg Syringe) 40 mg Q24H SQ ; Start 04/22/20 at 17:15; Status UNV Isosorbide Mononitrate (Imdur) 60 mg DAILY PO Last administered on 04/25/20at 12:26; Start 04/23/20 at 09:00; Stop 04/25/20 at 13:50; Status DC Heparin Sodium (Porcine) (Heparin Sodium) 5,000 unit Q8HRS SQ Last administered on 04/23/20at 05:36; Start 04/22/20 at 22:00; Stop 04/23/20 at 10:36; Status DC Enoxaparin Sodium (Lovenox Per Pharmacy Treatment Dosing) 1 each PRN DAILY PRN MC SEE COMMENTS; Start 04/22/20 at 17:30; Status UNV Cefepime HCl (Maxipime) 1 gm Q24H IVP Last administered on 04/26/20at 09:46; Start 04/23/20 at 09:00 Sodium Chloride 1,000 ml @ 1,000 mls/hr Q1H PRN IV hypotension; Start 04/22/20 at 17:45; Stop 04/22/20 at 23:44; Status DC Albumin Human 200 ml @ 200 mls/hr 1X PRN PRN IV Hypotension; Start 04/22/20 at 17:45; Stop 04/22/20 at 23:44; Status DC Sodium Chloride 1,000 ml @ 400 mls/hr Q2H30M PRN IV PATENCY; Start 04/22/20 at 17:45; Stop 04/23/20 at 05:44; Status DC Info (PHARMACY MONITORING -- do not chart) 1 each PRN DAILY PRN MC SEE COMMENTS; Start 04/22/20 at 17:45; Stop 04/25/20 at 12:24; Status DC Info (PHARMACY MONITORING -- do not chart) 1 each PRN DAILY PRN MC SEE COMMENTS; Start 04/22/20 at 17:45; Status UNV Sodium Chloride 1,000 ml @ 1,000 mls/hr Q1H PRN IV hypotension; Start 04/23/20 at 10:00; Stop 04/23/20 at 15:59; Status DC Info (PHARMACY MONITORING -- do not chart) 1 each PRN DAILY PRN MC SEE COMMENTS; Start 04/23/20 at 10:00; Status UNV Info (PHARMACY MONITORING -- do not chart) 1 each PRN DAILY PRN MC SEE COMMENTS; Start 04/23/20 at 10:00; Status UNV Remdesivir 200 mg/ Sodium Chloride 210 ml @ 210 mls/hr 1X ONCE IV Last administered on 04/23/20at 14:03; Start 04/23/20 at 11:00; Stop 04/23/20 at 11:59; Status DC Remdesivir 100 mg/ Sodium Chloride 230 ml @ 460 mls/hr Q24H IV Last administered on 04/26/20at 10:47; Start 04/24/20 at 11:00; Stop 04/27/20 at 11:29 Vancomycin HCl 500 mg/Sodium Chloride 100 ml @ 100 mls/hr QTUTHSA IV Last administered on 04/25/20at 15:32; Start 04/23/20 at 16:00 Lactobacillus Rhamnosus (Culturelle) 1 cap BID PO Last administered on 04/26/20 09:33; Start 04/23/20 at 21:00 Heparin Sodium/ Dextrose 250 ml @ 20 mls/hr CONT PRN IV PER PROTOCOL Last administered on 04/23/20at 23:59; Start 04/23/20 at 11:00; Stop 04/24/20 at 13:33; Status DC Heparin Sodium (Porcine) (Heparin Sodium) 3,200 unit PRN Q6HRS PRN IV FOR UFH LEVEL LESS THAN 0.2; Start 04/23/20 at 11:00; Stop 04/24/20 at 13:33; Status DC Heparin Sodium (Porcine) (Heparin Sodium) 1,600 unit PRN Q6HRS PRN IV FOR UFH LEVEL 0.2 - 0.29 Last administered on 04/24/20at 02:18; Start 04/23/20 at 11:00; Stop 04/24/20 at 13:33; Status DC Metoprolol Tartrate (Lopressor) 12.5 mg BID PO Last administered on 04/26/20at 09:36; Start 04/23/20 at 17:00 Ondansetron HCl (Zofran) 4 mg STK-MED ONCE .ROUTE ; Start 04/23/20 at 17:42; Stop 04/23/20 at 17:42; Status DC Ondansetron HCl (Zofran) 4 mg STK-MED ONCE .ROUTE ; Start 04/23/20 at 18:01; Stop 04/23/20 at 18:02; Status DC Prochlorperazine Edisylate (Compazine) 5 mg PRN Q6HRS PRN IM NAUSEA/VOMITING La st administered on 04/24/20at 12:45; Start 04/23/20 at 18:30; Stop 04/24/20 at 14:40; Status DC Ondansetron HCl (Zofran) 8 mg STK-MED ONCE .ROUTE ; Start 04/23/20 at 18:00; Stop 04/24/20 at 08:20; Status DC Prochlorperazine Edisylate (Compazine) 10 mg STK-MED ONCE .ROUTE ; Start 04/23/20 at 18:00; Stop 04/24/20 at 08:20; Status DC Iohexol (Omnipaque 350 Mg/ml) 100 ml 1X ONCE IV Last administered on 04/24/20at 10:54; Start 04/24/20 at 10:30; Stop 04/24/20 at 10:31; Status DC Info (CONTRAST GIVEN -- Rx MONITORING) 1 each PRN DAILY PRN MC SEE COMMENTS; Start 04/24/20 at 10:30; Stop 04/26/20 at 10:29; Status DC Dopamine HCl/ Dextrose 250 ml @ 10.031 mls/ hr CONT PRN IV SEE I/O RECORD Last administered on 04/24/20at 12:02; Start 04/24/20 at 11:45; Stop 04/24/20 at 13:33; Status DC Dopamine HCl/ Dextrose 250 ml @ As Directed STK-MED ONCE IV ; Start 04/24/20 at 11:47; Stop 04/24/20 at 11:47; Status DC Norepinephrine Bitartrate 8 mg/ Dextrose 258 ml @ 20.705 mls/ hr CONT PRN IV PER PROTOCOL; Start 04/24/20 at 13:30; Stop 04/25/20 at 15:43; Status DC Apixaban (Eliquis) 5 mg BID PO Last administered on 04/26/20at 09:34; Start 04/24/20 at 21:00 Prochlorperazine Edisylate (Compazine) 5 mg PRN Q6HRS PRN IV NAUSEA/VOMITING Last administered on 04/24/20at 19:14; Start 04/24/20 at 14:45 Sodium Chloride 1,000 ml @ 1,000 mls/hr Q1H PRN IV hypotension; Start 04/25/20 at 08:15; Stop 04/25/20 at 14:14; Status DC Albumin Human 200 ml @ 200 mls/hr 1X PRN PRN IV Hypotension; Start 04/25/20 at 08:15; Stop 04/25/20 at 14:14; Status DC Sodium Chloride 1,000 ml @ 400 mls/hr Q2H30M PRN IV PATENCY; Start 04/25/20 at 08:15; Stop 04/25/20 at 20:14; Status DC Info (PHARMACY MONITORING -- do not chart) 1 each PRN DAILY PRN MC SEE COMMENTS; Start 04/25/20 at 08:15; Stop 04/25/20 at 12:24; Status DC Info (PHARMACY MONITORING -- do not chart) 1 each PRN DAILY PRN MC SEE COMM ENTS; Start 04/25/20 at 08:15; Stop 04/26/20 at 11:43; Status DC Gabapentin (Neurontin) 100 mg TID PO Last administered on 04/26/20at 09:34; Start 04/25/20 at 10:00 Darbepoetin Aman (ARANESP for DIALYSIS PTS) 60 mcg WEEKLYHS SQ Last administered on 04/25/20at 20:41; Start 04/25/20 at 21:00 Digoxin (Lanoxin) 500 mcg 1X ONCE IV Last administered on 04/25/20at 14:23; Start 04/25/20 at 13:45; Stop 04/25/20 at 13:53; Status DC Info (Anti-Coagulation Monitoring By Pharmacy) 1 each PRN DAILY PRN MC SEE CO MMENTS Last administered on 04/26/20at 08:31; Start 04/26/20 at 08:30 Sevelamer Carbonate (Renvela) 2,400 mg TIDWMEALS PO ; Start 04/26/20 at 11:00 Magnesium Sulfate 50 ml @ 25 mls/hr PRN DAILY PRN IV for Mag < 1.7 on am labs; Start 04/26/20 at 11:00 Sodium Chloride 1,000 ml @ 1,000 mls/hr Q1H PRN IV hypotension; Start 04/26/20 at 11:45; Stop 04/26/20 at 17:44 Sodium Chloride 1,000 ml @ 400 mls/hr Q2H30M PRN IV PATENCY; Start 04/26/20 at 11:45; Stop 04/26/20 at 23:44 Info (PHARMACY MONITORING -- do not chart) 1 each PRN DAILY PRN MC SEE COMMENTS; Start 04/26/20 at 11:45; Status UNV Info (PHARMACY MONITORING -- do not chart) 1 each PRN DAILY PRN MC SEE COMMENTS; Start 04/26/20 at 11:45 Active Scripts Active Sodium Bicarbonate 650 Mg Tablet 650 Mg PO TID 30 Days Renvela (Sevelamer Carbonate) 800 Mg Tablet 800 Mg PO TIDWMEALS 30 Days Aspirin Ec (Aspirin) 81 Mg Tablet.dr 81 Mg PO DAILYWBKFT 30 Days Cozaar (Losartan Potassium) 50 Mg Tablet 100 Mg PO DAILY 30 Days Labetalol Hcl 200 Mg Tablet 200 Mg PO BID 30 Days Reported Soliqua 100 Unit-33 Mcg/ml Pen (Insulin Glargine/Lixisenatide) 3 Ml Insuln.pen 3 Ml SQ PRN PRN Lidocaine-Prilocaine Cream (Lidocaine/Prilocaine) 30 Gm Cream..g. 30 Gm TP PRN PRN Nephro-Shabana Tablet (Folic Acid/Vitamin B Comp W-C) 0.8 Mg Tablet 1 Tab PO DAILY Atorvastatin Calcium 40 Mg Tablet 1 Tab PO QHS Isosorbide Mononitrate Er (Isosorbide Mononitrate) 60 Mg Tab.er.24h 1 Tab PO DAILY Vitals/I & O Vital Sign - Last 24 Hours 04/25/20 04/25/20 04/25/20 04/25/20 13:00 14:00 14:23 16:00 Temp 96.4 97.6 96.4 97.6 Pulse 103 99 113 116 Resp 22 20 22 B/P (MAP) 106/63 (77) 96/69 (78) 91/67 113/71 (85) Pulse Ox 96 96 96 O2 Delivery Nasal Cannula Nasal Cannula Nasal Cannula O2 Flow Rate 10.0 7.0 7.0 04/25/20 04/25/20 04/25/20 04/25/20 18:00 18:00 19:59 20:16 Temp 96.5 96.6 96.5 96.6 Pulse 82 89 Resp 16 16 B/P (MAP) 115/85 (95) 115/61 (79) Pulse Ox 91 94 O2 Delivery Nasal Cannula Nasal Cannula Nasal Cannula Nasal Cannula O2 Flow Rate 7.0 7.0 8.0 7.0 04/25/20 04/25/20 04/26/2004/26/21 20:41 23:52 03:32 08:00 Temp 96.0 96.5 96.0 96.0 96.5 96.0 Pulse 89 93 120 80 Resp 16 16 16 B/P (MAP) 115/61 158/76 (103) 127/82 (97) 147/75 (99) Pulse Ox 95 94 100 O2 Delivery Nasal Cannula Nasal Cannula Nasal Cannula O2 Flow Rate 8.0 8.0 8.0 04/26/20 04/26/20 09:36 11:20 Temp 95.7 95.7 Pulse 80 105 Resp 16 B/P (MAP) 147/75 156/93 (114) Pulse Ox 95 O2 Delivery Nasal Cannula O2 Flow Rate 8.0 Intake and Output 04/25/20 04/25/20 04/26/20 15:00 23:00 07:00 Intake Total 480 ml 200 ml 300 ml Output Total 0 ml 0 ml 0 ml Balance 480 ml 200 ml 300 ml Justifications for Admission Other Justification FATOU LOPEZ MD Apr 26, 2020 13:00
[2020-04-26] MEDS: guaiFENesin/CODEINE 100mg/10mg 5 ML LIQUID PO PRN (14:07)
[2020-04-26 20:00] VITALS: BP 188/78
[2020-04-26] MEDS: ATORVASTATIN CALCIUM 40 MG TABLET. PO SCH (21:45)
[2020-04-26] MEDS: AZITHROMYCIN 250 MG in IV NORMAL SALINE 250ML 250 ML IV SCH (21:46)
[2020-04-26 22:56] VITALS: BP 152/62
[2020-04-27 03:21] VITALS: BP 122/68
[2020-04-27 05:50] LABS: CALCIUM 9.2 mg/dL (8.5-10.1); CREATININE 3.9 mg/dL (0.6-1.0); POTASSIUM 4.5 mmol/L (3.5-5.1)
[2020-04-27 05:58] LABS: ALBUMIN 2.6 g/dL (3.4-5.0); CALCIUM 9.2 mg/dL (8.5-10.1); CREATININE 3.9 mg/dL (0.6-1.0); MAGNESIUM 2.5 mg/dL (1.8-2.4); PHOSPHORUS 6.4 mg/dL (2.6-4.7); POTASSIUM 4.6 mmol/L (3.5-5.1)
[2020-04-27 06:08] LABS: BASO % 0 % (0-3); EOS % 0 % (0-3); HEMATOCRIT 28.3 % (36.0-47.0); HEMOGLOBIN 9.2 g/dL (12.0-15.5); LYMPH # 0.5 x10^3/uL (1.0-4.8); LYMPH % 4 % (24-48); MEAN CORPUSCULAR HEMOGLOBIN 29 pg (25-35); MEAN CORPUSCULAR HGB CONC 33 g/dL (31-37); MEAN CORPUSCULAR VOLUME 88 fL (79-100); MONO # 0.4 x10^3/uL (0.0-1.1); MONO % 4 % (0-9); NEUT # 10.1 x10^3/uL (1.8-7.7); NEUT % 92 % (31-73); PLATELET COUNT 106 x10^3/uL (140-400); RED BLOOD COUNT 3.22 x10^6/uL (3.50-5.40); RED CELL DISTRIBUTION WIDTH 17.7 % (11.5-14.5); WHITE BLOOD COUNT 10.9 x10^3/uL (4.0-11.0)
[2020-04-27 07:00] VITALS: BP 161/84
[2020-04-27] MEDS: SODIUM BICARBONATE 650 MG TABLET. PO SCH ×3 (08:54→22:15)
[2020-04-27] MEDS: FOLIC/VIT B COMP W-C (RENAL) TABLET. PO SCH (08:54)
[2020-04-27] MEDS: ASPIRIN ENTERIC COATED 81 MG TABLET.DR. PO SCH (08:54)
[2020-04-27] MEDS: METOPROLOL TART IMMED RELEASE 25 MG TABLET. PO SCH ×2 (08:55→22:15)
[2020-04-27] MEDS: APIXABAN 5 MG TABLET. PO SCH ×2 (08:56→22:14)
[2020-04-27] MEDS: GABAPENTIN 100 MG CAPSULE. PO SCH ×3 (08:56→22:14)
[2020-04-27] MEDS: guaiFENesin/CODEINE 100mg/10mg 5 ML LIQUID PO PRN (08:56)
[2020-04-27] MEDS: DEXAMETHASONE 4 MG TABLET PO SCH (08:56)
[2020-04-27] MEDS: SEVELAMER CARBONATE 800 MG TABLET. PO SCH ×3 (08:56→17:00)
[2020-04-27] MEDS: LACTOBACILLUS RHAMNOSUS GG 1 CAPSULE. PO SCH ×2 (08:56→22:14)
[2020-04-27] MEDS: CEFEPIME HCL IV Push 1 GM VIAL. IVP SCH (08:57)
[2020-04-27] MEDS: INSULIN LISPRO 300 UNITS/3 ML VIAL. SQ SCH ×3 (09:36→17:00)
--- NOTE | 2020-04-27 10:16 | PDOC ---
PULMONARY PROGRESS NOTES DATE: 04/27/20 TIME: 10:14 Subjective Remains on 8 liters N/C No SOA or increased cough No other concerns overnight from nursing Vitals Vital Signs Date Time Temp Pulse Resp B/P (MAP) Pulse Ox O2 Delivery O2 Flow Rate FiO2 04/27/20 08:55 93 161/84 04/27/20 07:00 96.8 18 85 Nasal Cannula 8.0 96.8 ROS: No Nausea, No Chest Pain, No Abdominal Pain, No Increase Cough General: Alert Lungs: Clear Cardiovascular: S1, S2 Abdomen: Soft Neuro Exam: Alert Extremities: No Edema Skin: Warm Labs Laboratory Tests Test 04/25/20 12:36 04/25/20 17:32 04/25/20 20:07 04/26/20 07:15 Glucose (Fingerstick) 157 mg/dL (70-99) 187 mg/dL (70-99) 239 mg/dL (70-99) 283 mg/dL (70-99) Test 04/26/20 09:45 04/26/20 11:48 04/26/20 20:08 04/27/20 05:00 White Blood Count 13.9 x10^3/uL (4.0-11.0) 10.9 x10^3/uL (4.0-11.0) Red Blood Count 3.28 x10^6/uL (3.50-5.40) 3.22 x10^6/uL (3.50-5.40) Hemoglobin 9.1 g/dL (12.0-15.5) 9.2 g/dL (12.0-15.5) Hematocrit 29.1 % (36.0-47.0) 28.3 % (36.0-47.0) Mean Corpuscular Volume 89 fL (79-100) 88 fL (79-100) Mean Corpuscular Hemoglobin 28 pg (25-35) 29 pg (25-35) Mean Corpuscular Hemoglobin Concent 31 g/dL (31-37) 33 g/dL (31-37) Red Cell Distribution Width 18.0 % (11.5-14.5) 17.7 % (11.5-14.5) Platelet Count 136 x10^3/uL (140-400) 106 x10^3/uL (140-400) Neutrophils (%) (Auto) 90 % (31-73) 92 % (31-73) Lymphocytes (%) (Auto) 5 % (24-48) 4 % (24-48) Monocytes (%) (Auto) 5 % (0-9) 4 % (0-9) Eosinophils (%) (Auto) 0 % (0-3) 0 % (0-3) Basophils (%) (Auto) 0 % (0-3) 0 % (0-3) Neutrophils # (Auto) 12.6 x10^3/uL (1.8-7.7) 10.1 x10^3/uL (1.8-7.7) Lymphocytes # (Auto) 0.7 x10^3/uL (1.0-4.8) 0.5 x10^3/uL (1.0-4.8) Monocytes # (Auto) 0.6 x10^3/uL (0.0-1.1) 0.4 x10^3/uL (0.0-1.1) Eosinophils # (Auto) 0.0 x10^3/uL (0.0-0.7) 0.0 x10^3/uL (0.0-0.7) Basophils # (Auto) 0.0 x10^3/uL (0.0-0.2) 0.0 x10^3/uL (0.0-0.2) Sodium Level 136 mmol/L (136-145) 139 mmol/L (136-145) Potassium Level 4.4 mmol/L (3.5-5.1) 4.6 mmol/L (3.5-5.1) Chloride Level 96 mmol/L (98-107) 98 mmol/L (98-107) Carbon Dioxide Level 27 mmol/L (21-32) 31 mmol/L (21-32) Anion Gap 13 (6-14) 10 (6-14) Blood Urea Nitrogen 55 mg/dL (7-20) 41 mg/dL (7-20) Creatinine 4.3 mg/dL (0.6-1.0) 3.9 mg/dL (0.6-1.0) Estimated GFR (Cockcroft-Gault) 10.7 12.0 Glucose Level 290 mg/dL (70-99) 231 mg/dL (70-99) Uric Acid 7.7 mg/dL (2.6-6.0) Calcium Level 9.0 mg/dL (8.5-10.1) 9.2 mg/dL (8.5-10.1) Total Bilirubin 1.7 mg/dL (0.2-1.0) Direct Bilirubin 0.8 mg/dL (0.0-0.2) Aspartate Amino Transf (AST/SGOT) 31 U/L (15-37) Alanine Aminotransferase (ALT/SGPT) 75 U/L (14-59) Alkaline Phosphatase 177 U/L (46-116) Lactate Dehydrogenase 466 U/L (81-234) Total Protein 6.4 g/dL (6.4-8.2) Albumin 2.5 g/dL (3.4-5.0) 2.6 g/dL (3.4-5.0) Glucose (Fingerstick) 324 mg/dL (70-99) 185 mg/dL (70-99) Phosphorus Level 6.4 mg/dL (2.6-4.7) Magnesium Level 2.5 mg/dL (1.8-2.4) Test 04/27/20 08:04 Glucose (Fingerstick) 243 mg/dL (70-99) Laboratory Tests Test 04/26/20 11:48 04/26/20 20:08 04/27/20 05:00 04/27/20 08:04 Glucose (Fingerstick) 324 mg/dL (70-99) 185 mg/dL (70-99) 243 mg/dL (70-99) White Blood Count 10.9 x10^3/uL (4.0-11.0) Red Blood Count 3.22 x10^6/uL (3.50-5.40) Hemoglobin 9.2 g/dL (12.0-15.5) Hematocrit 28.3 % (36.0-47.0) Mean Corpuscular Volume 88 fL (79-100) Mean Corpuscular Hemoglobin 29 pg (25-35) Mean Corpuscular Hemoglobin Concent 33 g/dL (31-37) Red Cell Distribution Width 17.7 % (11.5-14.5) Platelet Count 106 x10^3/uL (140-400) Neutrophils (%) (Auto) 92 % (31-73) Lymphocytes (%) (Auto) 4 % (24-48) Monocytes (%) (Auto) 4 % (0-9) Eosinophils (%) (Auto) 0 % (0-3) Basophils (%) (Auto) 0 % (0-3) Neutrophils # (Auto) 10.1 x10^3/uL (1.8-7.7) Lymphocytes # (Auto) 0.5 x10^3/uL (1.0-4.8) Monocytes # (Auto) 0.4 x10^3/uL (0.0-1.1) Eosinophils # (Auto) 0.0 x10^3/uL (0.0-0.7) Basophils # (Auto) 0.0 x10^3/uL (0.0-0.2) Sodium Level 139 mmol/L (136-145) Potassium Level 4.6 mmol/L (3.5-5.1) Chloride Level 98 mmol/L (98-107) Carbon Dioxide Level 31 mmol/L (21-32) Anion Gap 10 (6-14) Blood Urea Nitrogen 41 mg/dL (7-20) Creatinine 3.9 mg/dL (0.6-1.0) Estimated GFR (Cockcroft-Gault) 12.0 Glucose Level 231 mg/dL (70-99) Calcium Level 9.2 mg/dL (8.5-10.1) Phosphorus Level 6.4 mg/dL (2.6-4.7) Magnesium Level 2.5 mg/dL (1.8-2.4) Albumin 2.6 g/dL (3.4-5.0) Medications Active Scripts Medications Dose Route/Sig Max Daily Dose Days Date Category Soliqua 100 Unit-33 Mcg/ml Pen (Insulin Glargine/Lixisenatide) 3 Ml Insuln.pen 3 Ml SQ PRN PRN 02/14/20 Reported Lidocaine-Prilocaine Cream (Lidocaine/Prilocaine) 30 Gm Cream..g. 30 Gm TP PRN PRN 02/14/20 Reported Nephro-Shabana Tablet (Folic Acid/Vitamin B Comp W-C) 0.8 Mg Tablet 1 Tab PO DAILY 02/14/20 Reported Sodium Bicarbonate 650 Mg Tablet 650 Mg PO TID 30 08/09/19 Rx Renvela (Sevelamer Carbonate) 800 Mg Tablet 800 Mg PO TIDWMEALS 30 08/09/19 Rx Aspirin Ec (Aspirin) 81 Mg Tablet.dr 81 Mg PO DAILYWBKFT 30 08/09/19 Rx Cozaar (Losartan Potassium) 50 Mg Tablet 100 Mg PO DAILY 30 08/09/19 Rx Labetalol Hcl 200 Mg Tablet 200 Mg PO BID 30 08/09/19 Rx Atorvastatin Calcium 40 Mg Tablet 1 Tab PO QHS 03/05/19 Reported Isosorbide Mononitrate Er (Isosorbide Mononitrate) 60 Mg Tab.er.24h 1 Tab PO DAILY 03/12/17 Reported Comments CXR 04/26/20 IMPRESSION: 1. Progression of bilateral perihilar and basilar opacities. 2. Moderate right pleural effusion. CTA chest IMPRESSION: 1. No evidence of pulmonary thromboembolic disease. 2. Diffuse bilateral groundglass opacities, likely multifocal infection or edema. 3. Large right pleural effusion with relaxation atelectasis of much of the right lower lobe. 4. Extensive coronary artery atherosclerotic disease. Impression . IMPRESSION: 1. Acute hypoxemic respiratory failure secondary to COVID-19 viral pneumonia. 2. COVID-19 viral pneumonia. 3. Possible bacterial pneumonia. 4. CTA neg for PE 5. Bilateral pulmonary infiltrates compatible with viral pneumonia, possible bacterial pneumonia. 6. Renal failure. 7. Diabetes. 8. Hypertension. Plan . PLAN: Continue current supplemental oxygen, now on N/C tolerating well 6 min walk before discharge Follow chest x-ray as needed continue eliquis Continue full course of remdesivir, 5 day course Continue IV steroids with slow taper, will need full 10 day course, started 04/22 Continue empiric antibiotics, currently on vancomycin and cefepime, Follow nephrology recommendations in regards to hemodialysis Follow cardiology recommendations Physical therapy/Occupational Therapy DVT/GI prophylaxis Discussed with TANJA BHARDWAJ MD Apr 27, 2020 10:16
--- NOTE | 2020-04-27 11:38 | PDOC ---
PROGRESS NOTES Date of Service: DATE: 04/27/20 TIME: 11:35 Subjective Subjective pt feels better today,dialized last night Objective Objective Vital Signs Date Time Temp Pulse Resp B/P (MAP) Pulse Ox O2 Delivery O2 Flow Rate FiO2 04/27/20 08:55 93 161/84 04/27/20 07:00 96.8 18 85 Nasal Cannula 8.0 96.8 Physical Exam Abdomen: Soft Heart: Normal S2, Other (AFIB ) Extremities: Normal pulses, Other (trace bilateral LE edema ) General: Alert, Oriented X3, Cooperative, mild distress HEENT: Atraumatic, Mucous membr. moist/pink Lungs: Other (on BIPAP) MUSCULOSKELETAL: Osteoarthritic changes both hands Neuro: Normal speech, Sensation intact Psych/Mental Status: Mental status NL Skin: No significant lesion Diagnosis Problem List Problems Medical Problems: (1) Acute pulmonary edema Status: Acute (2) Acute respiratory failure with hypoxia Status: Acute (3) Atrial fibrillation with RVR Status: Acute (4) COVID-19 Status: Acute (5) NSTEMI (non-ST elevated myocardial infarction) Status: Acute (6) Septic shock Status: Acute Assessment Assessment Problems Medical Problems: (1) Acute pulmonary edema Status: Acute (2) Acute respiratory failure with hypoxia Status: Acute (3) Atrial fibrillation with RVR Status: Acute (4) COVID-19 Status: Acute (5) NSTEMI (non-ST elevated myocardial infarction) Status: Acute (6) Septic shock Status: Acute FINAL IMPRESSION: 1. Shortness of breath, combination of heart failure as well as pneumonia. 2. Recent COVID infection. 3. Coronary artery disease. She has a distal LAD disease, had a cardiac catheterization 07/2019. 4. End-stage renal disease, on hemodialysis. 5. Insulin-dependent diabetes. 6. Diastolic heart failure. 7. Hyperlipidemia. PLAN:PT/OT Dialysis last night . on Eliquis po bid for a fib CTA -neg for PE complted remdisivr . DIalysis tomorrow on nasal cnnula 8L off iv cardizam for a fib. dexamethasome IV antibiotics. zithromax+vanco+cefepime slight nicanor troponin spoke with Pulmonary+cardiology add gabapentin for leg pain for neuropathy Plan Plan of Care Problems Medical Problems: (1) Acute pulmonary edema Status: Acute (2) Acute respiratory failure with hypoxia Status: Acute (3) Atrial fibrillation with RVR Status: Acute (4) COVID-19 Status: Acute (5) NSTEMI (non-ST elevated myocardial infarction) Status: Acute (6) Septic shock Status: Acute Comment Review of Relevant I have reviewed the following items allen (where applicable) has been applied. Labs Laboratory Tests Test 04/26/20 11:48 04/26/20 20:08 04/27/20 05:00 04/27/20 08:04 Glucose (Fingerstick) 324 mg/dL (70-99) 185 mg/dL (70-99) 243 mg/dL (70-99) White Blood Count 10.9 x10^3/uL (4.0-11.0) Red Blood Count 3.22 x10^6/uL (3.50-5.40) Hemoglobin 9.2 g/dL (12.0-15.5) Hematocrit 28.3 % (36.0-47.0) Mean Corpuscular Volume 88 fL (79-100) Mean Corpuscular Hemoglobin 29 pg (25-35) Mean Corpuscular Hemoglobin Concent 33 g/dL (31-37) Red Cell Distribution Width 17.7 % (11.5-14.5) Platelet Count 106 x10^3/uL (140-400) Neutrophils (%) (Auto) 92 % (31-73) Lymphocytes (%) (Auto) 4 % (24-48) Monocytes (%) (Auto) 4 % (0-9) Eosinophils (%) (Auto) 0 % (0-3) Basophils (%) (Auto) 0 % (0-3) Neutrophils # (Auto) 10.1 x10^3/uL (1.8-7.7) Lymphocytes # (Auto) 0.5 x10^3/uL (1.0-4.8) Monocytes # (Auto) 0.4 x10^3/uL (0.0-1.1) Eosinophils # (Auto) 0.0 x10^3/uL (0.0-0.7) Basophils # (Auto) 0.0 x10^3/uL (0.0-0.2) Sodium Level 139 mmol/L (136-145) Potassium Level 4.6 mmol/L (3.5-5.1) Chloride Level 98 mmol/L (98-107) Carbon Dioxide Level 31 mmol/L (21-32) Anion Gap 10 (6-14) Blood Urea Nitrogen 41 mg/dL (7-20) Creatinine 3.9 mg/dL (0.6-1.0) Estimated GFR (Cockcroft-Gault) 12.0 Glucose Level 231 mg/dL (70-99) Calcium Level 9.2 mg/dL (8.5-10.1) Phosphorus Level 6.4 mg/dL (2.6-4.7) Magnesium Level 2.5 mg/dL (1.8-2.4) Albumin 2.6 g/dL (3.4-5.0) Microbiology 04/22/20 Blood Culture - Final, Complete NO GROWTH AFTER 5 DAYS Medications Current Medications Info (PHARMACY MONITORING -- do not chart) 1 each PRN DAILY PRN MC SEE COMMENTS; Start 04/26/20 at 11:45 Info (PHARMACY MONITORING -- do not chart) 1 each PRN DAILY PRN MC SEE COMMENTS; Start 04/26/20 at 11:45; Status UNV Sodium Chloride 1,000 ml @ 400 mls/hr Q2H30M PRN IV PATENCY; Start 04/26/20 at 11:45; Stop 04/26/20 at 23:44; Status DC Sodium Chloride 1,000 ml @ 1,000 mls/hr Q1H PRN IV hypotension; Start 04/26/20 at 11:45; Stop 04/26/20 at 17:44; Status DC Vitals/I & O Vital Sign - Last 24 Hours 04/26/20 04/26/20 04/26/20 04/26/20 20:00 20:18 21:46 22:56 Temp 96.8 97.3 96.8 97.3 Pulse 90 90 83 Resp 18 16 B/P (MAP) 188/78 (114) 188/78 152/62 (92) Pulse Ox 96 96 O2 Delivery Nasal Cannula Nasal Cannula Nasal Cannula O2 Flow Rate 8.0 8.0 8.0 04/27/20 04/27/20 04/27/20 04/27/20 00:33 03:21 07:00 08:55 Temp 97.4 96.8 97.4 96.8 Pulse 81 96 93 Resp 16 18 B/P (MAP) 122/68 (86) 161/84 (109) 161/84 Pulse Ox 94 93 85 O2 Delivery Nasal Cannula Nasal Cannula O2 Flow Rate 7.0 8.0 8.0 Justifications for Admission Other Justification YARELIS FONTENOT MD Apr 27, 2020 11:38
[2020-04-27 12:00] VITALS: BP 198/91
[2020-04-27] MEDS: REMDESIVIR 100mg in NORMAL SALINE 250ML X 4 DAYS IV SCH (13:07)
--- NOTE | 2020-04-27 14:16 | RAD ---
EXAM: Chest, single view. HISTORY: Pneumonia. COMPARISON: 04/26/2020. FINDINGS: A frontal view of the chest is obtained. There is a stable suspected moderate right pleural effusion with fluid tracking within the pleural fissures. There is stable diffuse mixed interstitial and alveolar infiltrate with suspected partial right lower lobe lung consolidation. There is a stabl e prominent cardiac silhouette. There is no pneumothorax. IMPRESSION: 1. Stable moderate right pleural effusion tracking within the pleural fissures. 2. Stable diffuse mixed interstitial and alveolar infiltrate with suspected partial right lower lobe consolidation. Electronically signed by: Fariha Villela MD (04/27/2020 2:14 PM) [facility]
[2020-04-27] MEDS: VANCOMYCIN 500 MG in IV NORMAL SALINE 100ML 100 ML IV SCH (14:49)
[2020-04-27 16:00] VITALS: BP 164/69
--- NOTE | 2020-04-27 16:33 | PDOC ---
PROGRESS NOTES Date of Service DATE: 04/27/20 TIME: 16:31 Subjective Subjective Patient seen and evaluated. Objective Objective Vital Signs Date Time Temp Pulse Resp B/P (MAP) Pulse Ox O2 Delivery O2 Flow Rate FiO2 04/27/20 16:00 96.8 95 16 164/69 (100) 94 Nasal Cannula 8.0 96.8 Physical Exam Physical Exam Visual examination secondary to Covid status. Assessment Assessment Problems Medical Problems: (1) Acute pulmonary edema Status: Acute (2) Acute respiratory failure with hypoxia Status: Acute (3) Atrial fibrillation with RVR Status: Acute (4) COVID-19 Status: Acute (5) NSTEMI (non-ST elevated myocardial infarction) Status: Acute (6) Septic shock Status: Acute Acute respiratory failure with COVID PNA. Remdesivir, Decadron initiated. + approximately 14 days ago. CTA negative for PE. Continues to mildly improved. Followed by the pulmonary service. Acute on chronic diastolic CHF; Echo 08/13 with preserved LV systolic function. Improved. ESRD on HD. Followed by renal. Mild troponin elevation; highest 0.8. type II, demand ischemia. CP free. CAD; recent cath with diffused LAD disease with fixed defect on MPI. No lesions needing intervention. Accelerated HTN; controlled PAFIB with RVR; paroxysmal RVR, rate improved. Diabetes, II Hyperlipidemia LE PAD: no claudications or wounds. Thrombocytopenia Near syncope; episode 3 days ago. Rhythm stable. Comment Review of Relevant I have reviewed the following items allen (where applicable) has been applied. Labs Laboratory Tests Test 04/25/20 17:32 04/25/20 20:07 04/26/20 07:15 04/26/20 09:45 Glucose (Fingerstick) 187 mg/dL (70-99) 239 mg/dL (70-99) 283 mg/dL (70-99) White Blood Count 13.9 x10^3/uL (4.0-11.0) Red Blood Count 3.28 x10^6/uL (3.50-5.40) Hemoglobin 9.1 g/dL (12.0-15.5) Hematocrit 29.1 % (36.0-47.0) Mean Corpuscular Volume 89 fL (79-100) Mean Corpuscular Hemoglobin 28 pg (25-35) Mean Corpuscular Hemoglobin Concent 31 g/dL (31-37) Red Cell Distribution Width 18.0 % (11.5-14.5) Platelet Count 136 x10^3/uL (140-400) Neutrophils (%) (Auto) 90 % (31-73) Lymphocytes (%) (Auto) 5 % (24-48) Monocytes (%) (Auto) 5 % (0-9) Eosinophils (%) (Auto) 0 % (0-3) Basophils (%) (Auto) 0 % (0-3) Neutrophils # (Auto) 12.6 x10^3/uL (1.8-7.7) Lymphocytes # (Auto) 0.7 x10^3/uL (1.0-4.8) Monocytes # (Auto) 0.6 x10^3/uL (0.0-1.1) Eosinophils # (Auto) 0.0 x10^3/uL (0.0-0.7) Basophils # (Auto) 0.0 x10^3/uL (0.0-0.2) Sodium Level 136 mmol/L (136-145) Potassium Level 4.4 mmol/L (3.5-5.1) Chloride Level 96 mmol/L (98-107) Carbon Dioxide Level 27 mmol/L (21-32) Anion Gap 13 (6-14) Blood Urea Nitrogen 55 mg/dL (7-20) Creatinine 4.3 mg/dL (0.6-1.0) Estimated GFR (Cockcroft-Gault) 10.7 Glucose Level 290 mg/dL (70-99) Uric Acid 7.7 mg/dL (2.6-6.0) Calcium Level 9.0 mg/dL (8.5-10.1) Total Bilirubin 1.7 mg/dL (0.2-1.0) Direct Bilirubin 0.8 mg/dL (0.0-0.2) Aspartate Amino Transf (AST/SGOT) 31 U/L (15-37) Alanine Aminotransferase (ALT/SGPT) 75 U/L (14-59) Alkaline Phosphatase 177 U/L (46-116) Lactate Dehydrogenase 466 U/L (81-234) Total Protein 6.4 g/dL (6.4-8.2) Albumin 2.5 g/dL (3.4-5.0) Test 04/26/20 11:48 04/26/20 20:08 04/27/20 05:00 04/27/20 08:04 Glucose (Fingerstick) 324 mg/dL (70-99) 185 mg/dL (70-99) 243 mg/dL (70-99) White Blood Count 10.9 x10^3/uL (4.0-11.0) Red Blood Count 3.22 x10^6/uL (3.50-5.40) Hemoglobin 9.2 g/dL (12.0-15.5) Hematocrit 28.3 % (36.0-47.0) Mean Corpuscular Volume 88 fL (79-100) Mean Corpuscular Hemoglobin 29 pg (25-35) Mean Corpuscular Hemoglobin Concent 33 g/dL (31-37) Red Cell Distribution Width 17.7 % (11.5-14.5) Platelet Count 106 x10^3/uL (140-400) Neutrophils (%) (Auto) 92 % (31-73) Lymphocytes (%) (Auto) 4 % (24-48) Monocytes (%) (Auto) 4 % (0-9) Eosinophils (%) (Auto) 0 % (0-3) Basophils (%) (Auto) 0 % (0-3) Neutrophils # (Auto) 10.1 x10^3/uL (1.8-7.7) Lymphocytes # (Auto) 0.5 x10^3/uL (1.0-4.8) Monocytes # (Auto) 0.4 x10^3/uL (0.0-1.1) Eosinophils # (Auto) 0.0 x10^3/uL (0.0-0.7) Basophils # (Auto) 0.0 x10^3/uL (0.0-0.2) Sodium Level 139 mmol/L (136-145) Potassium Level 4.6 mmol/L (3.5-5.1) Chloride Level 98 mmol/L (98-107) Carbon Dioxide Level 31 mmol/L (21-32) Anion Gap 10 (6-14) Blood Urea Nitrogen 41 mg/dL (7-20) Creatinine 3.9 mg/dL (0.6-1.0) Estimated GFR (Cockcroft-Gault) 12.0 Glucose Level 231 mg/dL (70-99) Calcium Level 9.2 mg/dL (8.5-10.1) Phosphorus Level 6.4 mg/dL (2.6-4.7) Magnesium Level 2.5 mg/dL (1.8-2.4) Albumin 2.6 g/dL (3.4-5.0) Test 04/27/20 12:26 Glucose (Fingerstick) 279 mg/dL (70-99) Laboratory Tests Test 04/26/20 20:08 04/27/20 05:00 04/27/20 08:04 04/27/20 12:26 Glucose (Fingerstick) 185 mg/dL (70-99) 243 mg/dL (70-99) 279 mg/dL (70-99) White Blood Count 10.9 x10^3/uL (4.0-11.0) Red Blood Count 3.22 x10^6/uL (3.50-5.40) Hemoglobin 9.2 g/dL (12.0-15.5) Hematocrit 28.3 % (36.0-47.0) Mean Corpuscular Volume 88 fL (79-100) Mean Corpuscular Hemoglobin 29 pg (25-35) Mean Corpuscular Hemoglobin Concent 33 g/dL (31-37) Red Cell Distribution Width 17.7 % (11.5-14.5) Platelet Count 106 x10^3/uL (140-400) Neutrophils (%) (Auto) 92 % (31-73) Lymphocytes (%) (Auto) 4 % (24-48) Monocytes (%) (Auto) 4 % (0-9) Eosinophils (%) (Auto) 0 % (0-3) Basophils (%) (Auto) 0 % (0-3) Neutrophils # (Auto) 10.1 x10^3/uL (1.8-7.7) Lymphocytes # (Auto) 0.5 x10^3/uL (1.0-4.8) Monocytes # (Auto) 0.4 x10^3/uL (0.0-1.1) Eosinophils # (Auto) 0.0 x10^3/uL (0.0-0.7) Basophils # (Auto) 0.0 x10^3/uL (0.0-0.2) Sodium Level 139 mmol/L (136-145) Potassium Level 4.6 mmol/L (3.5-5.1) Chloride Level 98 mmol/L (98-107) Carbon Dioxide Level 31 mmol/L (21-32) Anion Gap 10 (6-14) Blood Urea Nitrogen 41 mg/dL (7-20) Creatinine 3.9 mg/dL (0.6-1.0) Estimated GFR (Cockcroft-Gault) 12.0 Glucose Level 231 mg/dL (70-99) Calcium Level 9.2 mg/dL (8.5-10.1) Phosphorus Level 6.4 mg/dL (2.6-4.7) Magnesium Level 2.5 mg/dL (1.8-2.4) Albumin 2.6 g/dL (3.4-5.0) Microbiology 04/22/20 Blood Culture - Final, Complete NO GROWTH AFTER 5 DAYS Medications Current Medications Ondansetron HCl (Zofran) 8 mg 1X ONCE IVP Last administered on 04/22/20at 08:30; Start 04/22/20 at 08:00; Stop 04/22/20 at 08:01; Status DC Sodium Chloride 500 ml @ 500 mls/hr 1X ONCE IV ; Start 04/22/20 at 08:30; Stop 04/22/20 at 08:26; Status DC Diltiazem HCl (Cardizem Iv Push) 20 mg 1X ONCE IVP Last administered on 04/22/20at 09:21; Start 04/22/20 at 08:30; Stop 04/22/20 at 08:33; Status DC Nitroglycerin (Nitro-Bid Oint) 1.5 inch 1X ONCE TP Last administered on 04/22/20at 09:35; Start 04/22/20 at 08:30; Stop 04/22/20 at 08:33; Status DC Nitroglycerin/ Dextrose 250 ml @ 0 mls/hr 1X ONCE IV ; Start 04/22/20 at 08:30; Stop 04/22/20 at 08:39; Status DC Furosemide (Lasix) 60 mg 1X ONCE IVP Last administered on 04/22/20at 09:25; Start 04/22/20 at 08:45; Stop 04/22/20 at 08:46; Status DC Guaifenesin/ Codeine Phosphate (Robitussin Ac) 10 ml PRN Q6HRS PRN PO COUGH Last administered on 04/27/20at 08:56; Start 04/22/20 at 08:45 Diltiazem HCl 125 mg/Sodium Chloride 125 ml @ 5 mls/hr CONT PRN IV SEE I/O RECORD Last administered on 04/23/20at 01:56; Start 04/22/20 at 08:45; Stop 04/23/20 at 15:41; Status DC Aztreonam (Azactam) 2 gm 1X ONCE IVP ; Start 04/22/20 at 10:45; Stop 04/22/20 at 10:53; Status DC Vancomycin HCl (Vanco Per Pharmacy) 1 each PRN DAILY PRN MC SEE COMMENTS; Star t 04/22/20 at 10:45; Stop 04/22/20 at 16:48; Status DC Metronidazole 100 ml @ 100 mls/hr 1X ONCE IV ; Start 04/22/20 at 10:45; Stop 04/22/20 at 10:53; Status DC Cefepime HCl (Maxipime) 2 gm 1X ONCE IVP Last administered on 04/22/20at 12:34; Start 04/22/20 at 11:00; Stop 04/22/20 at 11:01; Status DC Azithromycin 250 ml @ 250 mls/hr 1X ONCE IV Last administered on 04/22/20at 17:05; Start 04/22/20 at 11:00; Stop 04/22/20 at 11:59; Status DC Vancomycin HCl 2 gm/Sodium Chloride 500 ml @ 250 mls/hr 1X ONCE IV Last administered on 04/22/20at 12:35; Start 04/22/20 at 11:00; Stop 04/22/20 at 12:59; Status DC Ondansetron HCl (Zofran) 4 mg PRN Q8HRS PRN IV NAUSEA/VOMITING Last administered on 04/23/20at 09:04; Start 04/22/20 at 11:30; Stop 04/23/20 at 11:29; Status DC Morphine Sulfate (Morphine Sulfate) 2 mg PRN Q2HR PRN IV PAIN Last administered on 04/22/20at 22:03; Start 04/22/20 at 11:30; Stop 04/23/20 at 11:29; Status DC Azithromycin 250 mg/Sodium Chloride 250 ml @ 250 mls/hr Q24H IV Last administered on 04/26/20 21:46; Start 04/23/20 at 17:00; Stop 04/26/20 at 17:00; Status DC Vancomycin HCl (Vanco Per Pharmacy) 1 each PRN DAILY PRN MC SEE COMMENTS Last administered on 04/26/20at 08:31; Start 04/23/20 at 17:00 Vancomycin HCl (Vancomycin Random Level) 1 each 1X ONCE MC Last administered on 04/23/20at 06:00; Start 04/23/20 at 06:00; Stop 04/23/20 at 06:01; Status DC Aspirin (Ecotrin) 81 mg DAILYWBKFT PO Last administered on 04/27/20 08:54; Start 04/23/20 at 08:00 Atorvastatin Calcium (Lipitor) 40 mg QHS PO Last administered on 04/26/20 21:45; Start 04/22/20 at 21:00 Vitamin B Complex/ Vitamin C (Amaya-Shabana) 1 tab DAILY PO Last administered on 04/27/20 08:54; Start 04/23/20 at 09:00 Labetalol HCl (Trandate) 200 mg BID PO Last administered on 04/24/20at 08:57; Start 04/22/20 at 21:00; Stop 04/25/20 at 10:30; Status DC Losartan Potassium (Cozaar) 100 mg DAILY PO Last administered on 04/24/20at 08:55; Start 04/23/20 at 09:00; Stop 04/25/20 at 13:50; Status DC Sevelamer Carbonate (Renvela) 800 mg TIDWMEALS PO Last administered on 04/26/20 09:34; Start 04/23/20 at 08:00; Stop 04/26/20 at 11:02; Status DC Sodium Bicarbonate (Sodium Bicarbonate) 650 mg TID PO Last administered on 04/27/20 13:08; Start 04/22/20 at 21:00 Dexamethasone (Decadron) 6 mg DAILYWBKFT PO Last administered on 04/27/20 08:56; Start 04/23/20 at 08:00 Dexamethasone Sodium Phosphate (Decadron) 10 mg 1X ONCE IVP Last administered on 04/22/20at 17:34; Start 04/22/20 at 17:30; Stop 04/22/20 at 17:31; Status DC Insulin Human Lispro (HumaLOG) 0-7 UNITS TIDWMEALS SQ Last administered on 04/27/20at 13:21; Start 04/22/20 at 18:00 Dextrose (Dextrose 50%-Water Syringe) 12.5 gm PRN Q15MIN PRN IV SEE COMMENTS; Start 04/22/20 at 17:15 Enoxaparin Sodium (Lovenox 40mg Syringe) 40 mg Q24H SQ ; Start 04/22/20 at 17:15; Status UNV Isosorbide Mononitrate (Imdur) 60 mg DAILY PO Last administered on 04/25/20at 12:26; Start 04/23/20 at 09:00; Stop 04/25/20 at 13:50; Status DC Heparin Sodium (Porcine) (Heparin Sodium) 5,000 unit Q8HRS SQ Last administered on 04/23/20at 05:36; Start 04/22/20 at 22:00; Stop 04/23/20 at 10:36; Status DC Enoxaparin Sodium (Lovenox Per Pharmacy Treatment Dosing) 1 each PRN DAILY PRN MC SEE COMMENTS; Start 04/22/20 at 17:30; Status UNV Cefepime HCl (Maxipime) 1 gm Q24H IVP Last administered on 04/27/20at 08:57; Start 04/23/20 at 09:00 Sodium Chloride 1,000 ml @ 1,000 mls/hr Q1H PRN IV hypotension; Start 04/22/20 at 17:45; Stop 04/22/20 at 23:44; Status DC Albumin Human 200 ml @ 200 mls/hr 1X PRN PRN IV Hypotension; Start 04/22/20 at 17:45; Stop 04/22/20 at 23:44; Status DC Sodium Chloride 1,000 ml @ 400 mls/hr Q2H30M PRN IV PATENCY; Start 04/22/20 at 17:45; Stop 04/23/20 at 05:44; Status DC Info (PHARMACY MONITORING -- do not chart) 1 each PRN DAILY PRN MC SEE COMMENTS; Start 04/22/20 at 17:45; Stop 04/25/20 at 12:24; Status DC Info (PHARMACY MONITORING -- do not chart) 1 each PRN DAILY PRN MC SEE COMMENTS; Start 04/22/20 at 17:45; Status UNV Sodium Chloride 1,000 ml @ 1,000 mls/hr Q1H PRN IV hypotension; Start 04/23/20 at 10:00; Stop 04/23/20 at 15:59; Status DC Info (PHARMACY MONITORING -- do not chart) 1 each PRN DAILY PRN MC SEE COMMENTS; Start 04/23/20 at 10:00; Status UNV Info (PHARMACY MONITORING -- do not chart) 1 each PRN DAILY PRN MC SEE COMMENTS; Start 04/23/20 at 10:00; Status UNV Remdesivir 200 mg/ Sodium Chloride 210 ml @ 210 mls/hr 1X ONCE IV Last administered on 04/23/20at 14:03; Start 04/23/20 at 11:00; Stop 04/23/20 at 11:59; Status DC Remdesivir 100 mg/ Sodium Chloride 230 ml @ 460 mls/hr Q24H IV Last administered on 04/27/20at 13:07; Start 04/24/20 at 11:00; Stop 04/27/20 at 11:29; Status DC Vancomycin HCl 500 mg/Sodium Chloride 100 ml @ 100 mls/hr QTUTHSA IV Last administered on 04/27/20at 14:49; Start 04/23/20 at 16:00 Lactobacillus Rhamnosus (Culturelle) 1 cap BID PO Last administered on 04/27/20at 08:56; Start 04/23/20 at 21:00 Heparin Sodium/ Dextrose 250 ml @ 20 mls/hr CONT PRN IV PER PROTOCOL Last administered on 04/23/20at 23:59; Start 04/23/20 at 11:00; Stop 04/24/20 at 13:33; Status DC Heparin Sodium (Porcine) (Heparin Sodium) 3,200 unit PRN Q6HRS PRN IV FOR UFH LEVEL LESS THAN 0.2; Start 04/23/20 at 11:00; Stop 04/24/20 at 13:33; Status DC Heparin Sodium (Porcine) (Heparin Sodium) 1,600 unit PRN Q6HRS PRN IV FOR UFH LEVEL 0.2 - 0.29 Last administered on 04/24/20at 02:18; Start 04/23/20 at 11:00; Stop 04/24/20 at 13:33; Status DC Metoprolol Tartrate (Lopressor) 12.5 mg BID PO Last administered on 04/27/20at 08:55; Start 04/23/20 at 17:00 Ondansetron HCl (Zofran) 4 mg STK-MED ONCE .ROUTE ; Start 04/23/20 at 17:42; Stop 04/23/20 at 17:42; Status DC Ondansetron HCl (Zofran) 4 mg STK-MED ONCE .ROUTE ; Start 04/23/20 at 18:01; Stop 04/23/20 at 18:02; Status DC Prochlorperazine Edisylate (Compazine) 5 mg PRN Q6HRS PRN IM NAUSEA/VOMITING Last administered on 04/24/20at 12:45; Start 04/23/20 at 18:30; Stop 04/24/20 at 14:40; Status DC Ondansetron HCl (Zofran) 8 mg STK-MED ONCE .ROUTE ; Start 04/23/20 at 18:00; Stop 04/24/20 at 08:20; Status DC Prochlorperazine Edisylate (Compazine) 10 mg STK-MED ONCE .ROUTE ; Start 04/23/20 at 18:00; Stop 04/24/20 at 08:20; Status DC Iohexol (Omnipaque 350 Mg/ml) 100 ml 1X ONCE IV Last administered on 04/24/20at 10:54; Start 04/24/20 at 10:30; Stop 04/24/20 at 10:31; Status DC Info (CONTRAST GIVEN -- Rx MONITORING) 1 each PRN DAILY PRN MC SEE COMMENTS; Start 04/24/20 at 10:30; Stop 04/26/20 at 10:29; Status DC Dopamine HCl/ Dextrose 250 ml @ 10.031 mls/ hr CONT PRN IV SEE I/O RECORD Last administered on 04/24/20at 12:02; Start 04/24/20 at 11:45; Stop 04/24/20 at 13:33; Status DC Dopamine HCl/ Dextrose 250 ml @ As Directed STK-MED ONCE IV ; Start 04/24/20 at 11:47; Stop 04/24/20 at 11:47; Status DC Norepinephrine Bitartrate 8 mg/ Dextrose 258 ml @ 20.705 mls/ hr CONT PRN IV PER PROTOCOL; Start 04/24/20 at 13:30; Stop 04/25/20 at 15:43; Status DC Apixaban (Eliquis) 5 mg BID PO Last administered on 04/27/20at 08:56; Start 04/24/20 at 21:00 Prochlorperazine Edisylate (Compazine) 5 mg PRN Q6HRS PRN IV NAUSEA/VOMITING Last administered on 04/24/20at 19:14; Start 04/24/20 at 14:45 Sodium Chloride 1,000 ml @ 1,000 mls/hr Q1H PRN IV hypotension; Start 04/25/20 at 08:15; Stop 04/25/20 at 14:14; Status DC Albumin Human 200 ml @ 200 mls/hr 1X PRN PRN IV Hypotension; Start 04/25/20 at 08:15; Stop 04/25/20 at 14:14; Status DC Sodium Chloride 1,000 ml @ 400 mls/hr Q2H30M PRN IV PATENCY; Start 04/25/20 at 08:15; Stop 04/25/20 at 20:14; Status DC Info (PHARMACY MONITORING -- do not chart) 1 each PRN DAILY PRN MC SEE COMMENTS; Start 04/25/20 at 08:15; Stop 04/25/20 at 12:24; Status DC Info (PHARMACY MONITORING -- do not chart) 1 each PRN DAILY PRN MC SEE COMMENTS; Start 04/25/20 at 08:15; Stop 04/26/20 at 11:43; Status DC Gabapentin (Neurontin) 100 mg TID PO Last administered on 04/27/20at 14:44; Start 04/25/20 at 10:00 Darbepoetin Aman (ARANESP for DIALYSIS PTS) 60 mcg WEEKLYHS SQ Last administered on 04/25/20at 20:41; Start 04/25/20 at 21:00 Digoxin (Lanoxin) 500 mcg 1X ONCE IV Last administered on 04/25/20at 14:23; Start 04/25/20 at 13:45; Stop 04/25/20 at 13:53; Status DC Info (Anti-Coagulation Monitoring By Pharmacy) 1 each PRN DAILY PRN MC SEE COMMENTS Last administered on 04/26/20at 08:31; Start 04/26/20 at 08:30 Sevelamer Carbonate (Renvela) 2,400 mg TIDWMEALS PO Last administered on 04/27/20at 13:07; Start 04/26/20 at 11:00 Magnesium Sulfate 50 ml @ 25 mls/hr PRN DAILY PRN IV for Mag < 1.7 on am labs; Start 04/26/20 at 11:00 Sodium Chloride 1,000 ml @ 1,000 mls/hr Q1H PRN IV hypotension; Start 04/26/20 at 11:45; Stop 04/26/20 at 17:44; Status DC Sodium Chloride 1,000 ml @ 400 mls/hr Q2H30M PRN IV PATENCY; Start 04/26/20 at 11:45; Stop 04/26/20 at 23:44; Status DC Info (PHARMACY MONITORING -- do not chart) 1 each PRN DAILY PRN MC SEE COMMENTS; Start 04/26/20 at 11:45; Status UNV Info (PHARMACY MONITORING -- do not chart) 1 each PRN DAILY PRN MC SEE COMMENTS; Start 04/26/20 at 11:45 Active Scripts Active Sodium Bicarbonate 650 Mg Tablet 650 Mg PO TID 30 Days Renvela (Sevelamer Carbonate) 800 Mg Tablet 800 Mg PO TIDWMEALS 30 Days Aspirin Ec (Aspirin) 81 Mg Tablet.dr 81 Mg PO DAILYWBKFT 30 Days Cozaar (Losartan Potassium) 50 Mg Tablet 100 Mg PO DAILY 30 Days Labetalol Hcl 200 Mg Tablet 200 Mg PO BID 30 Days Reported Soliqua 100 Unit-33 Mcg/ml Pen (Insulin Glargine/Lixisenatide) 3 Ml Insuln.pen 3 Ml SQ PRN PRN Lidocaine-Prilocaine Cream (Lidocaine/Prilocaine) 30 Gm Cream..g. 30 Gm TP PRN PRN Nephro-Shabana Tablet (Folic Acid/Vitamin B Comp W-C) 0.8 Mg Tablet 1 Tab PO DAILY Atorvastatin Calcium 40 Mg Tablet 1 Tab PO QHS Isosorbide Mononitrate Er (Isosorbide Mononitrate) 60 Mg Tab.er.24h 1 Tab PO DAILY Vitals/I & O Vital Sign - Last 24 Hours 04/26/20 04/26/20 04/26/20 04/26/20 20:00 20:18 21:46 22:56 Temp 96.8 97.3 96.8 97.3 Pulse 90 90 83 Resp 18 16 B/P (MAP) 188/78 (114) 188/78 152/62 (92) Pulse Ox 96 96 O2 Delivery Nasal Cannula Nasal Cannula Nasal Cannula O2 Flow Rate 8.0 8.0 8.0 04/27/20 04/27/20 04/27/20 04/27/20 00:33 03:21 07:00 08:00 Temp 97.4 96.8 97.4 96.8 Pulse 81 96 Resp 16 18 B/P (MAP) 122/68 (86) 161/84 (109) Pulse Ox 94 93 85 O2 Delivery Nasal Cannula Nasal Cannula Nasal Cannula O2 Flow Rate 7.0 8.0 8.0 8.0 04/27/20 04/27/20 04/27/20 08:55 12:00 16:00 Temp 96.9 96.8 96.9 96.8 Pulse 93 94 95 Resp 18 16 B/P (MAP) 161/84 198/91 (126) 164/69 (100) Pulse Ox 98 94 O2 Delivery Nasal Cannula Nasal Cannula O2 Flow Rate 8.0 8.0 Justifications for Admission Other Justification FATOU LOPEZ MD Apr 27, 2020 16:33
[2020-04-27] MEDS ORDERED: IV NORMAL SALINE 1000ML BAG 1,000 ML IV PRN ×2 (16:45)
[2020-04-27] MEDS ORDERED: DIALYSIS PATIENT. MC PRN ×2 (16:45)
[2020-04-27] MEDS ORDERED: ALBUMIN HUMAN 25% 200 ML IV PRN (16:45)
--- NOTE | 2020-04-27 18:20 | PDOC ---
Dialysis Progress Note Date of Service: DATE: 04/27/20 TIME: 18:17 Dialysis Note Dialysis Note Seen during Hemodialysis, tolerating treatment Well Vitals on Hemodialysis: 148/97 96 afeb Unable to examine patient this time due to COVID-19 isolation protocols ESRD: Dialysis as below F 180 NR 3.0 Hrs 3 K 2.5 Ca 140 Na 35HC03 Qb 350 + Qd 500+ Heparin 0 Units Uf 3-4 Kgs or to dry weight as tolerated May give 25-50 gms of 25% Albumin if needed to maintain Hemodynamic stability Treatment plan reviewed and discussed with hub lead Vitals Vital Signs Vital Signs Date Time Temp Pulse Resp B/P (MAP) Pulse Ox O2 Delivery O2 Flow Rate FiO2 04/27/20 16:00 96.8 95 16 164/69 (100) 94 Nasal Cannula 8.0 96.8 Labs Last Labs Laboratory Tests Test 04/25/20 20:07 04/26/20 07:15 04/26/20 09:45 04/26/20 11:48 Glucose (Fingerstick) 239 mg/dL (70-99) 283 mg/dL (70-99) 324 mg/dL (70-99) White Blood Count 13.9 x10^3/uL (4.0-11.0) Red Blood Count 3.28 x10^6/uL (3.50-5.40) Hemoglobin 9.1 g/dL (12.0-15.5) Hematocrit 29.1 % (36.0-47.0) Mean Corpuscular Volume 89 fL (79-100) Mean Corpuscular Hemoglobin 28 pg (25-35) Mean Corpuscular Hemoglobin Concent 31 g/dL (31-37) Red Cell Distribution Width 18.0 % (11.5-14.5) Platelet Count 136 x10^3/uL (140-400) Neutrophils (%) (Auto) 90 % (31-73) Lymphocytes (%) (Auto) 5 % (24-48) Monocytes (%) (Auto) 5 % (0-9) Eosinophils (%) (Auto) 0 % (0-3) Basophils (%) (Auto) 0 % (0-3) Neutrophils # (Auto) 12.6 x10^3/uL (1.8-7.7) Lymphocytes # (Auto) 0.7 x10^3/uL (1.0-4.8) Monocytes # (Auto) 0.6 x10^3/uL (0.0-1.1) Eosinophils # (Auto) 0.0 x10^3/uL (0.0-0.7) Basophils # (Auto) 0.0 x10^3/uL (0.0-0.2) Sodium Level 136 mmol/L (136-145) Potassium Level 4.4 mmol/L (3.5-5.1) Chloride Level 96 mmol/L (98-107) Carbon Dioxide Level 27 mmol/L (21-32) Anion Gap 13 (6-14) Blood Urea Nitrogen 55 mg/dL (7-20) Creatinine 4.3 mg/dL (0.6-1.0) Estimated GFR (Cockcroft-Gault) 10.7 Glucose Level 290 mg/dL (70-99) Uric Acid 7.7 mg/dL (2.6-6.0) Calcium Level 9.0 mg/dL (8.5-10.1) Total Bilirubin 1.7 mg/dL (0.2-1.0) Direct Bilirubin 0.8 mg/dL (0.0-0.2) Aspartate Amino Transf (AST/SGOT) 31 U/L (15-37) Alanine Aminotransferase (ALT/SGPT) 75 U/L (14-59) Alkaline Phosphatase 177 U/L (46-116) Lactate Dehydrogenase 466 U/L (81-234) Total Protein 6.4 g/dL (6.4-8.2) Albumin 2.5 g/dL (3.4-5.0) Test 04/26/20 20:08 04/27/20 05:00 04/27/20 08:04 04/27/20 12:26 Glucose (Fingerstick) 185 mg/dL (70-99) 243 mg/dL (70-99) 279 mg/dL (70-99) White Blood Count 10.9 x10^3/uL (4.0-11.0) Red Blood Count 3.22 x10^6/uL (3.50-5.40) Hemoglobin 9.2 g/dL (12.0-15.5) Hematocrit 28.3 % (36.0-47.0) Mean Corpuscular Volume 88 fL (79-100) Mean Corpuscular Hemoglobin 29 pg (25-35) Mean Corpuscular Hemoglobin Concent 33 g/dL (31-37) Red Cell Distribution Width 17.7 % (11.5-14.5) Platelet Count 106 x10^3/uL (140-400) Neutrophils (%) (Auto) 92 % (31-73) Lymphocytes (%) (Auto) 4 % (24-48) Monocytes (%) (Auto) 4 % (0-9) Eosinophils (%) (Auto) 0 % (0-3) Basophils (%) (Auto) 0 % (0-3) Neutrophils # (Auto) 10.1 x10^3/uL (1.8-7.7) Lymphocytes # (Auto) 0.5 x10^3/uL (1.0-4.8) Monocytes # (Auto) 0.4 x10^3/uL (0.0-1.1) Eosinophils # (Auto) 0.0 x10^3/uL (0.0-0.7) Basophils # (Auto) 0.0 x10^3/uL (0.0-0.2) Sodium Level 139 mmol/L (136-145) Potassium Level 4.6 mmol/L (3.5-5.1) Chloride Level 98 mmol/L (98-107) Carbon Dioxide Level 31 mmol/L (21-32) Anion Gap 10 (6-14) Blood Urea Nitrogen 41 mg/dL (7-20) Creatinine 3.9 mg/dL (0.6-1.0) Estimated GFR (Cockcroft-Gault) 12.0 Glucose Level 231 mg/dL (70-99) Calcium Level 9.2 mg/dL (8.5-10.1) Phosphorus Level 6.4 mg/dL (2.6-4.7) Magnesium Level 2.5 mg/dL (1.8-2.4) Albumin 2.6 g/dL (3.4-5.0) Laboratory Tests Test 04/26/20 20:08 04/27/20 05:00 04/27/20 08:04 04/27/20 12:26 Glucose (Fingerstick) 185 mg/dL (70-99) 243 mg/dL (70-99) 279 mg/dL (70-99) White Blood Count 10.9 x10^3/uL (4.0-11.0) Red Blood Count 3.22 x10^6/uL (3.50-5.40) Hemoglobin 9.2 g/dL (12.0-15.5) Hematocrit 28.3 % (36.0-47.0) Mean Corpuscular Volume 88 fL (79-100) Mean Corpuscular Hemoglobin 29 pg (25-35) Mean Corpuscular Hemoglobin Concent 33 g/dL (31-37) Red Cell Distribution Width 17.7 % (11.5-14.5) Platelet Count 106 x10^3/uL (140-400) Neutrophils (%) (Auto) 92 % (31-73) Lymphocytes (%) (Auto) 4 % (24-48) Monocytes (%) (Auto) 4 % (0-9) Eosinophils (%) (Auto) 0 % (0-3) Basophils (%) (Auto) 0 % (0-3) Neutrophils # (Auto) 10.1 x10^3/uL (1.8-7.7) Lymphocytes # (Auto) 0.5 x10^3/uL (1.0-4.8) Monocytes # (Auto) 0.4 x10^3/uL (0.0-1.1) Eosinophils # (Auto) 0.0 x10^3/uL (0.0-0.7) Basophils # (Auto) 0.0 x10^3/uL (0.0-0.2) Sodium Level 139 mmol/L (136-145) Potassium Level 4.6 mmol/L (3.5-5.1) Chloride Level 98 mmol/L (98-107) Carbon Dioxide Level 31 mmol/L (21-32) Anion Gap 10 (6-14) Blood Urea Nitrogen 41 mg/dL (7-20) Creatinine 3.9 mg/dL (0.6-1.0) Estimated GFR (Cockcroft-Gault) 12.0 Glucose Level 231 mg/dL (70-99) Calcium Level 9.2 mg/dL (8.5-10.1) Phosphorus Level 6.4 mg/dL (2.6-4.7) Magnesium Level 2.5 mg/dL (1.8-2.4) Albumin 2.6 g/dL (3.4-5.0) Assessment Assessment Problems Medical Problems: (1) Acute pulmonary edema Status: Acute (2) Acute respiratory failure with hypoxia Status: Acute (3) Atrial fibrillation with RVR Status: Acute (4) COVID-19 Status: Acute (5) NSTEMI (non-ST elevated myocardial infarction) Status: Acute (6) Septic shock Status: Acute Plan Plan of Care Problems Medical Problems: (1) Acute pulmonary edema Status: Acute (2) Acute respiratory failure with hypoxia Status: Acute (3) Atrial fibrillation with RVR Status: Acute (4) COVID-19 Status: Acute (5) NSTEMI (non-ST elevated myocardial infarction) Status: Acute (6) Septic shock Status: Acute BABATUNDE ANDRADE MD Apr 27, 2020 18:20
[2020-04-27] MEDS: ATORVASTATIN CALCIUM 40 MG TABLET. PO SCH (22:14)
[2020-04-27 22:15] VITALS: BP 156/83
[2020-04-28 03:59] VITALS: BP 158/70
[2020-04-28] MEDS: guaiFENesin/CODEINE 100mg/10mg 5 ML LIQUID PO PRN ×2 (05:35→14:01)
[2020-04-28 06:02] VITALS: BP 187/95
[2020-04-28 06:05] LABS: ALBUMIN 2.7 g/dL (3.4-5.0); CALCIUM 9.4 mg/dL (8.5-10.1); CREATININE 3.7 mg/dL (0.6-1.0); GFR 12.7; PHOSPHORUS 6.1 mg/dL (2.6-4.7); POTASSIUM 4.7 mmol/L (3.5-5.1)
[2020-04-28] MEDS: INSULIN LISPRO 300 UNITS/3 ML VIAL. SQ SCH ×3 (08:00→17:57)
[2020-04-28] MEDS: DEXAMETHASONE 4 MG TABLET PO SCH (08:05)
[2020-04-28] MEDS: FOLIC/VIT B COMP W-C (RENAL) TABLET. PO SCH (08:05)
[2020-04-28] MEDS: SEVELAMER CARBONATE 800 MG TABLET. PO SCH ×3 (08:06→17:56)
[2020-04-28] MEDS: METOPROLOL TART IMMED RELEASE 25 MG TABLET. PO SCH (08:10)
[2020-04-28] MEDS: SODIUM BICARBONATE 650 MG TABLET. PO SCH ×2 (08:10→14:02)
[2020-04-28] MEDS: APIXABAN 5 MG TABLET. PO SCH ×2 (08:10→20:22)
[2020-04-28] MEDS: LACTOBACILLUS RHAMNOSUS GG 1 CAPSULE. PO SCH ×2 (08:11→20:22)
[2020-04-28] MEDS: GABAPENTIN 100 MG CAPSULE. PO SCH ×3 (08:11→20:22)
[2020-04-28] MEDS: CEFEPIME HCL IV Push 1 GM VIAL. IVP SCH (08:12)
[2020-04-28] MEDS: ASPIRIN ENTERIC COATED 81 MG TABLET.DR. PO SCH (08:12)
[2020-04-28 11:00] VITALS: BP 160/87
--- NOTE | 2020-04-28 11:07 | PDOC ---
PROGRESS NOTES Date of Service: DATE: 04/28/20 TIME: 11:04 Subjective Subjective feels ok ,was dialized last night Objective Objective Vital Signs Date Time Temp Pulse Resp B/P (MAP) Pulse Ox O2 Delivery O2 Flow Rate FiO2 04/28/20 08:10 93 187/95 04/28/20 06:02 97.6 18 96 Nasal Cannula 8.0 97.6 Intake and Output 04/28/20 07:00 Intake Total 240 ml Balance 240 ml Intake Oral 240 ml Physical Exam Abdomen: Soft Heart: Normal S2, Other (AFIB ) Extremities: Normal pulses, Other (trace bilateral LE edema ) General: Alert, Oriented X3, Cooperative, mild distress HEENT: Atraumatic, Mucous membr. moist/pink Lungs: Other (on BIPAP) MUSCULOSKELETAL: Osteoarthritic changes both hands Neuro: Normal speech, Sensation intact Psych/Mental Status: Mental status NL Skin: No significant lesion Diagnosis Problem List Problems Medical Problems: (1) Acute pulmonary edema Status: Acute (2) Acute respiratory failure with hypoxia Status: Acute (3) Atrial fibrillation with RVR Status: Acute (4) COVID-19 Status: Acute (5) NSTEMI (non-ST elevated myocardial infarction) Status: Acute (6) Septic shock Status: Acute Assessment Assessment Problems Medical Problems: (1) Acute pulmonary edema Status: Acute (2) Acute respiratory failure with hypoxia Status: Acute (3) Atrial fibrillation with RVR Status: Acute (4) COVID-19 Status: Acute (5) NSTEMI (non-ST elevated myocardial infarction) Status: Acute (6) Septic shock Status: Acute FINAL IMPRESSION: 1. Shortness of breath, combination of heart failure as well as Covid pneumonia. 2. Recent COVID infection. 3. Coronary artery disease. She has a distal LAD disease, had a cardiac catheterization 07/2019. 4. End-stage renal disease, on hemodialysis. 5. Insulin-dependent diabetes. 6. Diastolic heart failure. 7. Hyperlipidemia. PLAN:wbc 11 , cr 4,5 cxr rt pleural effusion. 8 L oxygen SNU screen . on Eliquis po bid for a fib CTA -neg for PE completed remdisivr . DIalysis wednesday dexamethasome completed IV antibiotics. zithromax+vanco+cefepime slight nicanor troponin demand ischemia spoke with Pulmonary+cardiology add gabapentin for leg pain for neuropathy Plan Plan of Care Problems Medical Problems: (1) Acute pulmonary edema Status: Acute (2) Acute respiratory failure with hypoxia Status: Acute (3) Atrial fibrillation with RVR Status: Acute (4) COVID-19 Status: Acute (5) NSTEMI (non-ST elevated myocardial infarction) Status: Acute (6) Septic shock Status: Acute Comment Review of Relevant I have reviewed the following items allen (where applicable) has been applied. Labs Laboratory Tests Test 04/27/20 12:26 04/27/20 22:18 04/28/20 04:30 04/28/20 08:25 Glucose (Fingerstick) 279 mg/dL (70-99) 237 mg/dL (70-99) 324 mg/dL (70-99) Sodium Level 139 mmol/L (136-145) Potassium Level 4.7 mmol/L (3.5-5.1) Chloride Level 97 mmol/L (98-107) Carbon Dioxide Level 30 mmol/L (21-32) Anion Gap 12 (6-14) Blood Urea Nitrogen 43 mg/dL (7-20) Creatinine 3.7 mg/dL (0.6-1.0) Estimated GFR (Cockcroft-Gault) 12.7 Glucose Level 280 mg/dL (70-99) Calcium Level 9.4 mg/dL (8.5-10.1) Phosphorus Level 6.1 mg/dL (2.6-4.7) Magnesium Level 2.5 mg/dL (1.8-2.4) Albumin 2.7 g/dL (3.4-5.0) Microbiology 04/22/20 Blood Culture - Final, Complete NO GROWTH AFTER 5 DAYS Medications Current Medications Albumin Human 200 ml @ 200 mls/hr 1X PRN PRN IV Hypotension; Start 04/27/20 at 16:45; Stop 04/27/20 at 22:44; Status DC Info (PHARMACY MONITORING -- do not chart) 1 each PRN DAILY PRN MC SEE COMMENTS; Start 04/27/20 at 16:45 Info (PHARMACY MONITORING -- do not chart) 1 each PRN DAILY PRN MC SEE COMMENTS; Start 04/27/20 at 16:45 Sodium Chloride 1,000 ml @ 400 mls/hr Q2H30M PRN IV PATENCY; Start 04/27/20 at 16:45; Stop 04/28/20 at 04:44; Status DC Sodium Chloride 1,000 ml @ 1,000 mls/hr Q1H PRN IV hypotension; Start 04/27/20 at 16:45; Stop 04/27/20 at 22:44; Status DC Vitals/I & O Vital Sign - Last 24 Hours 04/27/20 04/27/20 04/27/20 04/27/20 12:00 16:00 22:00 22:15 Temp 96.9 96.8 96.9 96.8 Pulse 94 95 77 Resp 18 16 B/P (MAP) 198/91 (126) 164/69 (100) 156/83 Pulse Ox 98 94 O2 Delivery Nasal Cannula Nasal Cannula Nasal Cannula O2 Flow Rate 8.0 8.0 8.0 04/27/20 04/28/20 04/28/20 04/28/20 22:15 03:59 06:02 08:10 Temp 97.5 98.5 97.6 97.5 98.5 97.6 Pulse 122 88 93 93 Resp 16 18 18 B/P (MAP) 156/83 (107) 158/70 (99) 187/95 (125) 187/95 Pulse Ox 94 90 96 O2 Delivery Nasal Cannula Nasal Cannula Nasal Cannula O2 Flow Rate 8.0 8.0 8.0 Intake and Output 04/27/20 04/27/20 04/28/20 15:00 23:00 07:00 Intake Total 240 ml Balance 240 ml Justifications for Admission Other Justification YARELIS FONTENOT MD Apr 28, 2020 11:07
[2020-04-28] MEDS: DOXYCYCLINE HYCLATE 100 MG TABLET PO SCH ×2 (14:02→20:22)
--- NOTE | 2020-04-28 14:15 | PDOC ---
PULMONARY PROGRESS NOTES DATE: 04/28/20 TIME: 14:13 Subjective Remains on 8 liters N/C No SOA or increased cough No other concerns overnight from nursing Vitals Vital Signs Date Time Temp Pulse Resp B/P (MAP) Pulse Ox O2 Delivery O2 Flow Rate FiO2 04/28/20 08:10 93 187/95 04/28/20 06:02 97.6 18 96 Nasal Cannula 8.0 97.6 ROS: No Nausea, No Chest Pain, No Abdominal Pain, No Increase Cough General: Alert Lungs: Clear Cardiovascular: S1, S2 Abdomen: Soft Neuro Exam: Alert Extremities: No Edema Skin: Warm Labs Laboratory Tests Test 04/26/20 20:08 04/27/20 05:00 04/27/20 08:04 04/27/20 12:26 Glucose (Fingerstick) 185 mg/dL (70-99) 243 mg/dL (70-99) 279 mg/dL (70-99) White Blood Count 10.9 x10^3/uL (4.0-11.0) Red Blood Count 3.22 x10^6/uL (3.50-5.40) Hemoglobin 9.2 g/dL (12.0-15.5) Hematocrit 28.3 % (36.0-47.0) Mean Corpuscular Volume 88 fL (79-100) Mean Corpuscular Hemoglobin 29 pg (25-35) Mean Corpuscular Hemoglobin Concent 33 g/dL (31-37) Red Cell Distribution Width 17.7 % (11.5-14.5) Platelet Count 106 x10^3/uL (140-400) Neutrophils (%) (Auto) 92 % (31-73) Lymphocytes (%) (Auto) 4 % (24-48) Monocytes (%) (Auto) 4 % (0-9) Eosinophils (%) (Auto) 0 % (0-3) Basophils (%) (Auto) 0 % (0-3) Neutrophils # (Auto) 10.1 x10^3/uL (1.8-7.7) Lymphocytes # (Auto) 0.5 x10^3/uL (1.0-4.8) Monocytes # (Auto) 0.4 x10^3/uL (0.0-1.1) Eosinophils # (Auto) 0.0 x10^3/uL (0.0-0.7) Basophils # (Auto) 0.0 x10^3/uL (0.0-0.2) Sodium Level 139 mmol/L (136-145) Potassium Level 4.6 mmol/L (3.5-5.1) Chloride Level 98 mmol/L (98-107) Carbon Dioxide Level 31 mmol/L (21-32) Anion Gap 10 (6-14) Blood Urea Nitrogen 41 mg/dL (7-20) Creatinine 3.9 mg/dL (0.6-1.0) Estimated GFR (Cockcroft-Gault) 12.0 Glucose Level 231 mg/dL (70-99) Calcium Level 9.2 mg/dL (8.5-10.1) Phosphorus Level 6.4 mg/dL (2.6-4.7) Magnesium Level 2.5 mg/dL (1.8-2.4) Albumin 2.6 g/dL (3.4-5.0) Test 04/27/20 22:18 04/28/20 04:30 04/28/20 08:25 04/28/20 12:14 Glucose (Fingerstick) 237 mg/dL (70-99) 324 mg/dL (70-99) 330 mg/dL (70-99) Sodium Level 139 mmol/L (136-145) Potassium Level 4.7 mmol/L (3.5-5.1) Chloride Level 97 mmol/L (98-107) Carbon Dioxide Level 30 mmol/L (21-32) Anion Gap 12 (6-14) Blood Urea Nitrogen 43 mg/dL (7-20) Creatinine 3.7 mg/dL (0.6-1.0) Estimated GFR (Cockcroft-Gault) 12.7 Glucose Level 280 mg/dL (70-99) Calcium Level 9.4 mg/dL (8.5-10.1) Phosphorus Level 6.1 mg/dL (2.6-4.7) Magnesium Level 2.5 mg/dL (1.8-2.4) Albumin 2.7 g/dL (3.4-5.0) Laboratory Tests Test 04/27/20 22:18 04/28/20 04:30 04/28/20 08:25 04/28/20 12:14 Glucose (Fingerstick) 237 mg/dL (70-99) 324 mg/dL (70-99) 330 mg/dL (70-99) Sodium Level 139 mmol/L (136-145) Potassium Level 4.7 mmol/L (3.5-5.1) Chloride Level 97 mmol/L (98-107) Carbon Dioxide Level 30 mmol/L (21-32) Anion Gap 12 (6-14) Blood Urea Nitrogen 43 mg/dL (7-20) Creatinine 3.7 mg/dL (0.6-1.0) Estimated GFR (Cockcroft-Gault) 12.7 Glucose Level 280 mg/dL (70-99) Calcium Level 9.4 mg/dL (8.5-10.1) Phosphorus Level 6.1 mg/dL (2.6-4.7) Magnesium Level 2.5 mg/dL (1.8-2.4) Albumin 2.7 g/dL (3.4-5.0) Medications Active Scripts Medications Dose Route/Sig Max Daily Dose Days Date Category Soliqua 100 Unit-33 Mcg/ml Pen (Insulin Glargine/Lixisenatide) 3 Ml Insuln.pen 3 Ml SQ PRN PRN 02/14/20 Reported Lidocaine-Prilocaine Cream (Lidocaine/Prilocaine) 30 Gm Cream..g. 30 Gm TP PRN PRN 02/14/20 Reported Nephro-Shabana Tablet (Folic Acid/Vitamin B Comp W-C) 0.8 Mg Tablet 1 Tab PO DAILY 02/14/20 Reported Sodium Bicarbonate 650 Mg Tablet 650 Mg PO TID 30 08/09/19 Rx Renvela (Sevelamer Carbonate) 800 Mg Tablet 800 Mg PO TIDWMEALS 30 08/09/19 Rx Aspirin Ec (Aspirin) 81 Mg Tablet. 81 Mg PO DAILYWBKFT 30 08/09/19 Rx Cozaar (Losartan Potassium) 50 Mg Tablet 100 Mg PO DAILY 30 08/09/19 Rx Labetalol Hcl 200 Mg Tablet 200 Mg PO BID 30 08/09/19 Rx Atorvastatin Calcium 40 Mg Tablet 1 Tab PO QHS 03/05/19 Reported Isosorbide Mononitrate Er (Isosorbide Mononitrate) 60 Mg Tab.er.24h 1 Tab PO DAILY 03/12/17 Reported Comments CXR 04/26/20 IMPRESSION: 1. Progression of bilateral perihilar and basilar opacities. 2. Moderate right pleural effusion. CTA chest IMPRESSION: 1. No evidence of pulmonary thromboembolic disease. 2. Diffuse bilateral groundglass opacities, likely multifocal infection or edema. 3. Large right pleural effusion with relaxation atelectasis of much of the right lower lobe. 4. Extensive coronary artery atherosclerotic disease. Impression . IMPRESSION: 1. Acute hypoxemic respiratory failure secondary to COVID-19 viral pneumonia. 2. COVID-19 viral pneumonia. 3. Possible bacterial pneumonia. 4. CTA neg for PE 5. Bilateral pulmonary infiltrates compatible with viral pneumonia, possible bacterial pneumonia. 6. Renal failure. 7. Diabetes. 8. Hypertension. Plan . PLAN: Continue current supplemental oxygen, now on 8 liters N/C tolerating well 6 min walk before discharge, Needs 6-minute walk patient discharges to rehab facility, social work working on discharging to [facility] rehab facility Follow chest x-ray as needed continue eliquis Continue full course of remdesivir, 5 day course Continue IV steroids with slow taper, will need full 10 day course, started 04/22 Continue empiric antibiotics, currently doxy Follow nephrology recommendations in regards to hemodialysis Follow cardiology recommendations Physical therapy/Occupational Therapy Social work for DC planning DVT/GI prophylaxis Discussed with TANJA BHARDWAJ MD Apr 28, 2020 14:15
--- NOTE | 2020-04-28 14:52 | PDOC ---
DATE OF SERVICE: DOS: DATE: 04/28/20 TIME: 14:46 SUBJECTIVE ROS Follow-up for ESRD on hemodialysis Unable to get review of systems from patient at this time due to COVID-19 pneumonitis and isolation protocol OBJECTIVE Vital Signs Vital Signs Date Time Temp Pulse Resp B/P (MAP) Pulse Ox O2 Delivery O2 Flow Rate FiO2 04/28/20 08:10 93 187/95 04/28/20 06:02 97.6 18 96 Nasal Cannula 8.0 97.6 I & 0 Intake and Output 04/28/20 07:00 Intake Total 240 ml Balance 240 ml Intake Oral 240 ml PHYSICAL EXAM Physical Exam Unable to examine patient due to COVID-19 isolation protocol. Reviewed physical exam as documented elsewhere by other providers as well as corroborated with patient's nurse. She remains on 8 L nasal cannula oxygen DIAGNOSIS/ASSESSMENT Assessment & Plan ESRD: Current fluid and E-lyte status does not necessitate emergent need for dialysis. Will re-evaluate for dialysis in the am and continue on Wednesday schedule. Possible element of fluid overload. Patient weights are now down from 110 kg to 104 kg. Blood pressures do remain elevated. Will evaluate for dialysis in the morning for further ultrafiltration ANEMIA; continue Aranap as ordered at a higher dose. HTN: Cannot rule out element of fluid overload here. Some acceleration due to ongoing steroid use cannot be ruled out. May need ultrafiltration and challenge of estimated dry weight. Current BP meds as reviewed. See orders for changes. Alkalosis: Stop oral bicarbonate BONE & MINERAL: Follow phosphorus levels and alter binder regimen as needed COVID-19 positive COMMENT/RELEVANT DATA Meds Current Medications Medications (Trade) Dose Ordered Sig/Joshua Start Time Stop Time Status Last Admin Dose Admin Albumin Human 200 ml @ 200 mls/hr 1X PRN PRN 04/27/20 16:45 04/27/20 22:44 DC Apixaban (Eliquis) 5 mg BID 04/24/20 21:00 04/28/20 08:10 5 MG Aspirin (Ecotrin) 81 mg DAILYWBKFT 04/23/20 08:00 04/28/20 08:12 81 MG Atorvastatin Calcium (Lipitor) 40 mg QHS 04/22/20 21:00 04/27/20 22:14 40 MG Azithromycin 250 ml @ 250 mls/hr 1X ONCE 04/22/20 11:00 04/22/20 11:59 DC 04/22/20 17:05 250 MLS/HR Azithromycin 250 mg/Sodium Chloride 250 ml @ 250 mls/hr Q24H 04/23/20 17:00 04/26/20 17:00 DC 04/26/20 21:46 250 MLS/HR Aztreonam (Azactam) 2 gm 1X ONCE 04/22/20 10:45 04/22/20 10:53 DC Cefepime HCl (Maxipime) 1 gm Q24H 04/23/20 09:00 04/28/20 11:10 DC 04/28/20 08:12 1 GM Darbepoetin Aman (ARANESP for DIALYSIS PTS) 60 mcg WEEKLYHS 04/25/20 21:00 04/25/20 20:41 60 MCG Dexamethasone (Decadron) 6 mg DAILYWBKFT 04/23/20 08:00 04/28/20 08:05 6 MG Dexamethasone Sodium Phosphate (Decadron) 10 mg 1X ONCE 04/22/20 17:30 04/22/20 17:31 DC 04/22/20 17:34 10 MG Dextrose (Dextrose 50%-Water Syringe) 12.5 gm PRN Q15MIN PRN 04/22/20 17:15 Digoxin (Lanoxin) 500 mcg 1X ONCE 04/25/20 13:45 04/25/20 13:53 DC 04/25/20 14:23 500 MCG Diltiazem HCl (Cardizem Iv Push) 20 mg 1X ONCE 04/22/20 08:30 04/22/20 08:33 DC 04/22/20 09:21 20 MG Diltiazem HCl 125 mg/Sodium Chloride 125 ml @ 5 mls/hr CONT PRN 04/22/20 08:45 04/23/20 15:41 DC 04/23/20 01:56 15 MLS/HR Dopamine HCl/ Dextrose 250 ml @ As Directed STK-MED ONCE 04/24/20 11:47 04/24/20 11:47 DC Doxycycline Hyclate (Vibra-Tab) 100 mg BID 04/28/20 12:00 04/28/20 14:02 100 MG Enoxaparin Sodium (Lovenox 40mg Syringe) 40 mg Q24H 04/22/20 17:15 UNV Enoxaparin Sodium (Lovenox Per Pharmacy Treatment Dosing) 1 each PRN DAILY PRN 04/22/20 17:30 UNV Furosemide (Lasix) 60 mg 1X ONCE 04/22/20 08:45 04/22/20 08:46 DC 04/22/20 09:25 60 MG Gabapentin (Neurontin) 100 mg TID 04/25/20 10:00 04/28/20 14:00 100 MG Guaifenesin/ Codeine Phosphate (Robitussin Ac) 10 ml PRN Q6HRS PRN 04/22/20 08:45 04/28/20 14:01 10 ML Heparin Sodium (Porcine) (Heparin Sodium) 1,600 unit PRN Q6HRS PRN 04/23/20 11:00 04/24/20 13:33 DC 04/24/20 02:18 1,600 UNIT Heparin Sodium/ Dextrose 250 ml @ 20 mls/hr CONT PRN 04/23/20 11:00 04/24/20 13:33 DC 04/23/20 23:59 16.976 MLS/HR Info (Anti-Coagulation Monitoring By Pharmacy) 1 each PRN DAILY PRN 04/26/20 08:30 04/26/20 08:31 1 EACH Info (CONTRAST GIVEN -- Rx MONITORING) 1 each PRN DAILY PRN 04/24/20 10:30 04/26/20 10:29 DC Info (PHARMACY MONITORING -- do not chart) 1 each PRN DAILY PRN 04/27/20 16:45 Insulin Human Lispro (HumaLOG) 0-7 UNITS TIDWMEALS 04/22/20 18:00 04/28/20 13:12 7 UNITS Iohexol (Omnipaque 350 Mg/ml) 100 ml 1X ONCE 04/24/20 10:30 04/24/20 10:31 DC 04/24/20 10:54 100 ML Isosorbide Mononitrate (Imdur) 60 mg DAILY 04/23/20 09:00 04/25/20 13:50 DC 04/25/20 12:26 60 MG Labetalol HCl (Trandate) 200 mg BID 04/22/20 21:00 04/25/20 10:30 DC 04/24/20 08:57 200 MG Lactobacillus Rhamnosus (Culturelle) 1 cap BID 04/23/20 21:00 04/28/20 08:11 1 CAP Losartan Potassium (Cozaar) 100 mg DAILY 04/23/20 09:00 04/25/20 13:50 DC 04/24/20 08:55 100 MG Magnesium Sulfate 50 ml @ 25 mls/hr PRN DAILY PRN 04/26/20 11:00 Metoprolol Tartrate (Lopressor) 12.5 mg BID 04/23/20 17:00 04/28/20 08:10 12.5 MG Metronidazole 100 ml @ 100 mls/hr 1X ONCE 04/22/20 10:45 04/22/20 10:53 DC Morphine Sulfate (Morphine Sulfate) 2 mg PRN Q2HR PRN 04/22/20 11:30 04/23/20 11:29 DC 04/22/20 22:03 2 MG Nitroglycerin (Nitro-Bid Oint) 1.5 inch 1X ONCE 04/22/20 08:30 04/22/20 08:33 DC 04/22/20 09:35 1 INCH Nitroglycerin/ Dextrose 250 ml @ 0 mls/hr 1X ONCE 04/22/20 08:30 04/22/20 08:39 DC Norepinephrine Bitartrate 8 mg/ Dextrose 258 ml @ 20.705 mls/ hr CONT PRN 04/24/20 13:30 04/25/20 15:43 DC Ondansetron HCl (Zofran) 8 mg STK-MED ONCE 04/23/20 18:00 04/24/20 08:20 DC Prochlorperazine Edisylate (Compazine) 5 mg PRN Q6HRS PRN 04/24/20 14:45 04/24/20 19:14 5 MG Remdesivir 100 mg/ Sodium Chloride 230 ml @ 460 mls/hr Q24H 04/24/20 11:00 04/27/20 11:29 DC 04/27/20 13:07 460 MLS/HR Remdesivir 200 mg/ Sodium Chloride 210 ml @ 210 mls/hr 1X ONCE 04/23/20 11:00 04/23/20 11:59 DC 04/23/20 14:03 210 MLS/HR Sevelamer Carbonate (Renvela) 2,400 mg TIDWMEALS 04/26/20 11:00 04/28/20 14:02 2,400 MG Sodium Bicarbonate (Sodium Bicarbonate) 650 mg TID 04/22/20 21:00 04/28/20 14:02 650 MG Sodium Chloride 1,000 ml @ 400 mls/hr Q2H30M PRN 04/27/20 16:45 04/28/20 04:44 DC Vancomycin HCl (Vanco Per Pharmacy) 1 each PRN DAILY PRN 04/23/20 17:00 04/28/20 11:12 DC 04/26/20 08:31 1 EACH Vancomycin HCl (Vancomycin Random Level) 1 each 1X ONCE 04/23/20 06:00 04/23/20 06:01 DC 04/23/20 06:00 1 EACH Vancomycin HCl 500 mg/Sodium Chloride 100 ml @ 100 mls/hr QTUTHSA 04/23/20 16:00 04/28/20 11:10 DC 04/27/20 14:49 100 MLS/HR Vancomycin HCl 2 gm/Sodium Chloride 500 ml @ 250 mls/hr 1X ONCE 04/22/20 11:00 04/22/20 12:59 DC 04/22/20 12:35 250 MLS/HR Vitamin B Complex/ Vitamin C (Amaya-Shabana) 1 tab DAILY 04/23/20 09:00 04/28/20 08:05 1 TAB Lab Laboratory Tests Test 04/27/20 22:18 04/28/20 04:30 04/28/20 08:25 04/28/20 12:14 Glucose (Fingerstick) 237 mg/dL (70-99) 324 mg/dL (70-99) 330 mg/dL (70-99) Sodium Level 139 mmol/L (136-145) Potassium Level 4.7 mmol/L (3.5-5.1) Chloride Level 97 mmol/L (98-107) Carbon Dioxide Level 30 mmol/L (21-32) Anion Gap 12 (6-14) Blood Urea Nitrogen 43 mg/dL (7-20) Creatinine 3.7 mg/dL (0.6-1.0) Estimated GFR (Cockcroft-Gault) 12.7 Glucose Level 280 mg/dL (70-99) Calcium Level 9.4 mg/dL (8.5-10.1) Phosphorus Level 6.1 mg/dL (2.6-4.7) Magnesium Level 2.5 mg/dL (1.8-2.4) Albumin 2.7 g/dL (3.4-5.0) Results All relevant outside records, renal labs, imaging studies, telemetry/EKG's were reviewed. Justicifation of Admission Dx: Justifications for Admission: Justification of Admission Dx: Yes BABATUNDE ANDRADE MD Apr 28, 2020 14:52
[2020-04-28 15:00] VITALS: BP 165/117
--- NOTE | 2020-04-28 15:28 | PDOC ---
PROGRESS NOTES Date of Service DATE: 04/28/20 TIME: 15:26 Subjective Subjective Patient seen and evaluated Objective Objective Vital Signs Date Time Temp Pulse Resp B/P (MAP) Pulse Ox O2 Delivery O2 Flow Rate FiO2 04/28/20 08:10 93 187/95 04/28/20 06:02 97.6 18 96 Nasal Cannula 8.0 97.6 Intake and Output 04/28/20 07:00 Intake Total 240 ml Balance 240 ml Intake Oral 240 ml Physical Exam Physical Exam Visual examination secondary to Covid status. Assessment Assessment Problems Medical Problems: (1) Acute pulmonary edema Status: Acute (2) Acute respiratory failure with hypoxia Status: Acute (3) Atrial fibrillation with RVR Status: Acute (4) COVID-19 Status: Acute (5) NSTEMI (non-ST elevated myocardial infarction) Status: Acute (6) Septic shock Status: Acute Acute respiratory failure with COVID PNA. Remdesivir, Decadron initiated. + approximately 14 days ago. CTA negative for PE. Continues slow improvement. Followed by the pulmonary service. Acute on chronic diastolic CHF; Echo 08/13 with preserved LV systolic function. Improved. ESRD on HD. Followed by renal. Mild troponin elevation; highest 0.8. type II, demand ischemia. CP free. CAD; recent cath with diffused LAD disease with fixed defect on MPI. No lesions needing intervention. Accelerated HTN; controlled PAFIB with RVR; paroxysmal RVR, rate improved. Diabetes, II Hyperlipidemia LE PAD: no claudications or wounds. Thrombocytopenia Near syncope; episode 4 days ago. Rhythm stable. Comment Review of Relevant I have reviewed the following items allen (where applicable) has been applied. Labs Laboratory Tests Test 04/26/20 20:08 04/27/20 05:00 04/27/20 08:04 04/27/20 12:26 Glucose (Fingerstick) 185 mg/dL (70-99) 243 mg/dL (70-99) 279 mg/dL (70-99) White Blood Count 10.9 x10^3/uL (4.0-11.0) Red Blood Count 3.22 x10^6/uL (3.50-5.40) Hemoglobin 9.2 g/dL (12.0-15.5) Hematocrit 28.3 % (36.0-47.0) Mean Corpuscular Volume 88 fL (79-100) Mean Corpuscular Hemoglobin 29 pg (25-35) Mean Corpuscular Hemoglobin Concent 33 g/dL (31-37) Red Cell Distribution Width 17.7 % (11.5-14.5) Platelet Count 106 x10^3/uL (140-400) Neutrophils (%) (Auto) 92 % (31-73) Lymphocytes (%) (Auto) 4 % (24-48) Monocytes (%) (Auto) 4 % (0-9) Eosinophils (%) (Auto) 0 % (0-3) Basophils (%) (Auto) 0 % (0-3) Neutrophils # (Auto) 10.1 x10^3/uL (1.8-7.7) Lymphocytes # (Auto) 0.5 x10^3/uL (1.0-4.8) Monocytes # (Auto) 0.4 x10^3/uL (0.0-1.1) Eosinophils # (Auto) 0.0 x10^3/uL (0.0-0.7) Basophils # (Auto) 0.0 x10^3/uL (0.0-0.2) Sodium Level 139 mmol/L (136-145) Potassium Level 4.6 mmol/L (3.5-5.1) Chloride Level 98 mmol/L (98-107) Carbon Dioxide Level 31 mmol/L (21-32) Anion Gap 10 (6-14) Blood Urea Nitrogen 41 mg/dL (7-20) Creatinine 3.9 mg/dL (0.6-1.0) Estimated GFR (Cockcroft-Gault) 12.0 Glucose Level 231 mg/dL (70-99) Calcium Level 9.2 mg/dL (8.5-10.1) Phosphorus Level 6.4 mg/dL (2.6-4.7) Magnesium Level 2.5 mg/dL (1.8-2.4) Albumin 2.6 g/dL (3.4-5.0) Test 04/27/20 22:18 04/28/20 04:30 04/28/20 08:25 04/28/20 12:14 Glucose (Fingerstick) 237 mg/dL (70-99) 324 mg/dL (70-99) 330 mg/dL (70-99) Sodium Level 139 mmol/L (136-145) Potassium Level 4.7 mmol/L (3.5-5.1) Chloride Level 97 mmol/L (98-107) Carbon Dioxide Level 30 mmol/L (21-32) Anion Gap 12 (6-14) Blood Urea Nitrogen 43 mg/dL (7-20) Creatinine 3.7 mg/dL (0.6-1.0) Estimated GFR (Cockcroft-Gault) 12.7 Glucose Level 280 mg/dL (70-99) Calcium Level 9.4 mg/dL (8.5-10.1) Phosphorus Level 6.1 mg/dL (2.6-4.7) Magnesium Level 2.5 mg/dL (1.8-2.4) Albumin 2.7 g/dL (3.4-5.0) Laboratory Tests Test 04/27/20 22:18 04/28/20 04:30 04/28/20 08:25 04/28/20 12:14 Glucose (Fingerstick) 237 mg/dL (70-99) 324 mg/dL (70-99) 330 mg/dL (70-99) Sodium Level 139 mmol/L (136-145) Potassium Level 4.7 mmol/L (3.5-5.1) Chloride Level 97 mmol/L (98-107) Carbon Dioxide Level 30 mmol/L (21-32) Anion Gap 12 (6-14) Blood Urea Nitrogen 43 mg/dL (7-20) Creatinine 3.7 mg/dL (0.6-1.0) Estimated GFR (Cockcroft-Gault) 12.7 Glucose Level 280 mg/dL (70-99) Calcium Level 9.4 mg/dL (8.5-10.1) Phosphorus Level 6.1 mg/dL (2.6-4.7) Magnesium Level 2.5 mg/dL (1.8-2.4) Albumin 2.7 g/dL (3.4-5.0) Microbiology 04/22/20 Blood Culture - Final, Complete NO GROWTH AFTER 5 DAYS Medications Current Medications Ondansetron HCl (Zofran) 8 mg 1X ONCE IVP Last administered on 04/22/20at 08:30; Start 04/22/20 at 08:00; Stop 04/22/20 at 08:01; Status DC Sodium Chloride 500 ml @ 500 mls/hr 1X ONCE IV ; Start 04/22/20 at 08:30; Stop 04/22/20 at 08:26; Status DC Diltiazem HCl (Cardizem Iv Push) 20 mg 1X ONCE IVP Last administered on 04/22/20at 09:21; Start 04/22/20 at 08:30; Stop 04/22/20 at 08:33; Status DC Nitroglycerin (Nitro-Bid Oint) 1.5 inch 1X ONCE TP Last administered on 04/22/20at 09:35; Start 04/22/20 at 08:30; Stop 04/22/20 at 08:33; Status DC Nitroglycerin/ Dextrose 250 ml @ 0 mls/hr 1X ONCE IV ; Start 04/22/20 at 08:30; Stop 04/22/20 at 08:39; Status DC Furosemide (Lasix) 60 mg 1X ONCE IVP Last administered on 04/22/20at 09:25; Start 04/22/20 at 08:45; Stop 04/22/20 at 08:46; Status DC Guaifenesin/ Codeine Phosphate (Robitussin Ac) 10 ml PRN Q6HRS PRN PO COUGH Last administered on 04/28/20at 14:01; Start 04/22/20 at 08:45 Diltiazem HCl 125 mg/Sodium Chloride 125 ml @ 5 mls/hr CONT PRN IV SEE I/O RECORD Last administered on 04/23/20at 01:56; Start 04/22/20 at 08:45; Stop 04/23/20 at 15:41; Status DC Aztreonam (Azactam) 2 gm 1X ONCE IVP ; Start 04/22/20 at 10:45; Stop 04/22/20 at 10:53; Status DC Vancomycin HCl (Vanco Per Pharmacy) 1 each PRN DAILY PRN MC SEE COMMENTS; Start 04/22/20 at 10:45; Stop 04/22/20 at 16:48; Status DC Metronidazole 100 ml @ 100 mls/hr 1X ONCE IV ; Start 04/22/20 at 10:45; Stop 04/22/20 at 10:53; Status DC Cefepime HCl (Maxipime) 2 gm 1X ONCE IVP Last administered on 04/22/20at 12:34; Start 04/22/20 at 11:00; Stop 04/22/20 at 11:01; Status DC Azithromycin 250 ml @ 250 mls/hr 1X ONCE IV Last administered on 04/22/20at 17:05; Start 04/22/20 at 11:00; Stop 04/22/20 at 11:59; Status DC Vancomycin HCl 2 gm/Sodium Chloride 500 ml @ 250 mls/hr 1X ONCE IV Last administered on 04/22/20at 12:35; Start 04/22/20 at 11:00; Stop 04/22/20 at 12:59; Status DC Ondansetron HCl (Zofran) 4 mg PRN Q8HRS PRN IV NAUSEA/VOMITING Last administered on 04/23/20at 09:04; Start 04/22/20 at 11:30; Stop 04/23/20 at 11:29; Status DC Morphine Sulfate (Morphine Sulfate) 2 mg PRN Q2HR PRN IV PAIN Last administered on 04/22/20at 22:03; Start 04/22/20 at 11:30; Stop 04/23/20 at 11:29; Status DC Azithromycin 250 mg/Sodium Chloride 250 ml @ 250 mls/hr Q24H IV Last administered on 04/26/20at 21:46; Start 04/23/20 at 17:00; Stop 04/26/20 at 17:00; Status DC Vancomycin HCl (Vanco Per Pharmacy) 1 each PRN DAILY PRN MC SEE COMMENTS Last administered on 04/26/20at 08:31; Start 04/23/20 at 17:00; Stop 04/28/20 at 11:12; Status DC Vancomycin HCl (Vancomycin Random Level) 1 each 1X ONCE MC Last administered on 04/23/20at 06:00; Start 04/23/20 at 06:00; Stop 04/23/20 at 06:01; Status DC Aspirin (Ecotrin) 81 mg DAILYWBKFT PO Last administered on 04/28/20 08:12; Start 04/23/20 at 08:00 Atorvastatin Calcium (Lipitor) 40 mg QHS PO Last administered on 04/27/20 22:14; Start 04/22/20 at 21:00 Vitamin B Complex/ Vitamin C (Amaya-Shabana) 1 tab DAILY PO Last administered on 04/28/20 08:05; Start 04/23/20 at 09:00 Labetalol HCl (Trandate) 200 mg BID PO Last administered on 04/24/20at 08:57; Start 04/22/20 at 21:00; Stop 04/25/20 at 10:30; Status DC Losartan Potassium (Cozaar) 100 mg DAILY PO Last administered on 04/24/20at 08:55; Start 04/23/20 at 09:00; Stop 04/25/20 at 13:50; Status DC Sevelamer Carbonate (Renvela) 800 mg TIDWMEALS PO Last administered on 04/26/20at 09:34; Start 04/23/20 at 08:00; Stop 04/26/20 at 11:02; Status DC Sodium Bicarbonate (Sodium Bicarbonate) 650 mg TID PO Last administered on 04/28/20at 14:02; Start 04/22/20 at 21:00; Stop 04/28/20 at 14:51; Status DC Dexamethasone (Decadron) 6 mg DAILYWBKFT PO Last administered on 04/28/20at 08:05; Start 04/23/20 at 08:00 Dexamethasone Sodium Phosphate (Decadron) 10 mg 1X ONCE IVP Last administered on 04/22/20at 17:34; Start 04/22/20 at 17:30; Stop 04/22/20 at 17:31; Status DC Insulin Human Lispro (HumaLOG) 0-7 UNITS TIDWMEALS SQ Last administered on 04/28/20at 13:12; Start 04/22/20 at 18:00 Dextrose (Dextrose 50%-Water Syringe) 12.5 gm PRN Q15MIN PRN IV SEE COMMENTS; Start 04/22/20 at 17:15 Enoxaparin Sodium (Lovenox 40mg Syringe) 40 mg Q24H SQ ; Start 04/22/20 at 17:15; Status UNV Isosorbide Mononitrate (Imdur) 60 mg DAILY PO Last administered on 04/25/20at 12:26; Start 04/23/20 at 09:00; Stop 04/25/20 at 13:50; Status DC Heparin Sodium (Porcine) (Heparin Sodium) 5,000 unit Q8HRS SQ Last administered on 04/23/20at 05:36; Start 04/22/20 at 22:00; Stop 04/23/20 at 10:36; Status DC Enoxaparin Sodium (Lovenox Per Pharmacy Treatment Dosing) 1 each PRN DAILY PRN MC SEE COMMENTS; Start 04/22/20 at 17:30; Status UNV Cefepime HCl (Maxipime) 1 gm Q24H IVP Last administered on 04/28/20at 08:12; Start 04/23/20 at 09:00; Stop 04/28/20 at 11:10; Status DC Sodium Chloride 1,000 ml @ 1,000 mls/hr Q1H PRN IV hypotension; Start 04/22/20 at 17:45; Stop 04/22/20 at 23:44; Status DC Albumin Human 200 ml @ 200 mls/hr 1X PRN PRN IV Hypotension; Start 04/22/20 at 17:45; Stop 04/22/20 at 23:44; Status DC Sodium Chloride 1,000 ml @ 400 mls/hr Q2H30M PRN IV PATENCY; Start 04/22/20 at 17:45; Stop 04/23/20 at 05:44; Status DC Info (PHARMACY MONITORING -- do not chart) 1 each PRN DAILY PRN MC SEE COMMENTS; Start 04/22/20 at 17:45; Stop 04/25/20 at 12:24; Status DC Info (PHARMACY MONITORING -- do not chart) 1 each PRN DAILY PRN MC SEE COMMENTS; Start 04/22/20 at 17:45; Status UNV Sodium Chloride 1,000 ml @ 1,000 mls/hr Q1H PRN IV hypotension; Start 04/23/20 at 10:00; Stop 04/23/20 at 15:59; Status DC Info (PHARMACY MONITORING -- do not chart) 1 each PRN DAILY PRN MC SEE COMMENTS; Start 04/23/20 at 10:00; Status UNV Info (PHARMACY MONITORING -- do not chart) 1 each PRN DAILY PRN MC SEE COMMENTS; Start 04/23/20 at 10:00; Status UNV Remdesivir 200 mg/ Sodium Chloride 210 ml @ 210 mls/hr 1X ONCE IV Last administered on 04/23/20at 14:03; Start 04/23/20 at 11:00; Stop 04/23/20 at 11:59; Status DC Remdesivir 100 mg/ Sodium Chloride 230 ml @ 460 mls/hr Q24H IV Last administered on 04/27/20at 13:07; Start 04/24/20 at 11:00; Stop 04/27/20 at 11:29; Status DC Vancomycin HCl 500 mg/Sodium Chloride 100 ml @ 100 mls/hr QTUTHSA IV Last administered on 04/27/20at 14:49; Start 04/23/20 at 16:00; Stop 04/28/20 at 11:10; Status DC Lactobacillus Rhamnosus (Culturelle) 1 cap BID PO Last administered on 04/28/20at 08:11; Start 04/23/20 at 21:00 Heparin Sodium/ Dextrose 250 ml @ 20 mls/hr CONT PRN IV PER PROTOCOL Last administered on 04/23/20at 23:59; Start 04/23/20 at 11:00; Stop 04/24/20 at 13:33; Status DC Heparin Sodium (Porcine) (Heparin Sodium) 3,200 unit PRN Q6HRS PRN IV FOR UFH LEVEL LESS THAN 0.2; Start 04/23/20 at 11:00; Stop 04/24/20 at 13:33; Status DC Heparin Sodium (Porcine) (Heparin Sodium) 1,600 unit PRN Q6HRS PRN IV FOR UFH LEVEL 0.2 - 0.29 Last administered on 04/24/20at 02:18; Start 04/23/20 at 11:00; Stop 04/24/20 at 13:33; Status DC Metoprolol Tartrate (Lopressor) 12.5 mg BID PO Last administered on 04/28/20at 08:10; Start 04/23/20 at 17:00; Stop 04/28/20 at 14:51; Status DC Ondansetron HCl (Zofran) 4 mg STK-MED ONCE .ROUTE ; Start 04/23/20 at 17:42; Stop 04/23/20 at 17:42; Status DC Ondansetron HCl (Zofran) 4 mg STK-MED ONCE .ROUTE ; Start 04/23/20 at 18:01; Stop 04/23/20 at 18:02; Status DC Prochlorperazine Edisylate (Compazine) 5 mg PRN Q6HRS PRN IM NAUSEA/VOMITING Last administered on 04/24/20at 12:45; Start 04/23/20 at 18:30; Stop 04/24/20 at 14:40; Status DC Ondansetron HCl (Zofran) 8 mg STK-MED ONCE .ROUTE ; Start 04/23/20 at 18:00; Stop 04/24/20 at 08:20; Status DC Prochlorperazine Edisylate (Compazine) 10 mg STK-MED ONCE .ROUTE ; Start 04/23/20 at 18:00; Stop 04/24/20 at 08:20; Status DC Iohexol (Omnipaque 350 Mg/ml) 100 ml 1X ONCE IV Last administered on 04/24/20at 10:54; Start 04/24/20 at 10:30; Stop 04/24/20 at 10:31; Status DC Info (CONTRAST GIVEN -- Rx MONITORING) 1 each PRN DAILY PRN MC SEE COMMENTS; Start 04/24/20 at 10:30; Stop 04/26/20 at 10:29; Status DC Dopamine HCl/ Dextrose 250 ml @ 10.031 mls/ hr CONT PRN IV SEE I/O RECORD Last administered on 04/24/20at 12:02; Start 04/24/20 at 11:45; Stop 04/24/20 at 13:33; Status DC Dopamine HCl/ Dextrose 250 ml @ As Directed STK-MED ONCE IV ; Start 04/24/20 at 11:47; Stop 04/24/20 at 11:47; Status DC Norepinephrine Bitartrate 8 mg/ Dextrose 258 ml @ 20.705 mls/ hr CONT PRN IV PER PROTOCOL; Start 04/24/20 at 13:30; Stop 04/25/20 at 15:43; Status DC Apixaban (Eliquis) 5 mg BID PO Last administered on 04/28/20at 08:10; Start 04/24/20 at 21:00 Prochlorperazine Edisylate (Compazine) 5 mg PRN Q6HRS PRN IV NAUSEA/VOMITING Last administered on 04/24/20at 19:14; Start 04/24/20 at 14:45 Sodium Chloride 1,000 ml @ 1,000 mls/hr Q1H PRN IV hypotension; Start 04/25/20 at 08:15; Stop 04/25/20 at 14:14; Status DC Albumin Human 200 ml @ 200 mls/hr 1X PRN PRN IV Hypotension; Start 04/25/20 at 08:15; Stop 04/25/20 at 14:14; Status DC Sodium Chloride 1,000 ml @ 400 mls/hr Q2H30M PRN IV PATENCY; Start 04/25/20 at 08:15; Stop 04/25/20 at 20:14; Status DC Info (PHARMACY MONITORING -- do not chart) 1 each PRN DAILY PRN MC SEE COMMENTS; Start 04/25/20 at 08:15; Stop 04/25/20 at 12:24; Status DC Info (PHARMACY MONITORING -- do not chart) 1 each PRN DAILY PRN MC SEE COMMENTS; Start 04/25/20 at 08:15; Stop 04/26/20 at 11:43; Status DC Gabapentin (Neurontin) 100 mg TID PO Last administered on 04/28/20at 14:00; Start 04/25/20 at 10:00 Darbepoetin Aman (ARANESP for DIALYSIS PTS) 60 mcg WEEKLYHS SQ Last administered on 04/25/20at 20:41; Start 04/25/20 at 21:00; Stop 04/28/20 at 14:51; Status DC Digoxin (Lanoxin) 500 mcg 1X ONCE IV Last administered on 04/25/20at 14:23; Start 04/25/20 at 13:45; Stop 04/25/20 at 13:53; Status DC Info (Anti-Coagulation Monitoring By Pharmacy) 1 each PRN DAILY PRN MC SEE COMMENTS Last administered on 04/26/20at 08:31; Start 04/26/20 at 08:30 Sevelamer Carbonate (Renvela) 2,400 mg TIDWMEALS PO Last administered on 04/28/20at 14:02; Start 04/26/20 at 11:00 Magnesium Sulfate 50 ml @ 25 mls/hr PRN DAILY PRN IV for Mag < 1.7 on am labs; Start 04/26/20 at 11:00 Sodium Chloride 1,000 ml @ 1,000 mls/hr Q1H PRN IV hypotension; Start 04/26/20 at 11:45; Stop 04/26/20 at 17:44; Status DC Sodium Chloride 1,000 ml @ 400 mls/hr Q2H30M PRN IV PATENCY; Start 04/26/20 at 11:45; Stop 04/26/20 at 23:44; Status DC Info (PHARMACY MONITORING -- do not chart) 1 each PRN DAILY PRN MC SEE COMMENTS; Start 04/26/20 at 11:45; Status UNV Info (PHARMACY MONITORING -- do not chart) 1 each PRN DAILY PRN MC SEE COMMENTS; Start 04/26/20 at 11:45; Stop 04/28/20 at 11:13; Status DC Sodium Chloride 1,000 ml @ 1,000 mls/hr Q1H PRN IV hypotension; Start 04/27/20 at 16:45; Stop 04/27/20 at 22:44; Status DC Albumin Human 200 ml @ 200 mls/hr 1X PRN PRN IV Hypotension; Start 04/27/20 at 16:45; Stop 04/27/20 at 22:44; Status DC Sodium Chloride 1,000 ml @ 400 mls/hr Q2H30M PRN IV PATENCY; Start 04/27/20 at 16:45; Stop 04/28/20 at 04:44; Status DC Info (PHARMACY MONITORING -- do not chart) 1 each PRN DAILY PRN MC SEE COM MENTS; Start 04/27/20 at 16:45; Stop 04/28/20 at 11:13; Status DC Info (PHARMACY MONITORING -- do not chart) 1 each PRN DAILY PRN MC SEE COMMENTS; Start 04/27/20 at 16:45 Doxycycline Hyclate (Vibra-Tab) 100 mg BID PO Last administered on 04/28/20at 14:02; Start 04/28/20 at 12:00 Darbepoetin Aman (ARANESP for DIALYSIS PTS) 100 mcg WEEKLYHS SQ ; Start 04/28/20 at 21:00 Metoprolol Tartrate (Lopressor) 50 mg BID PO ; Start 04/28/20 at 21:00 Active Scripts Active Sodium Bicarbonate 650 Mg Tablet 650 Mg PO TID 30 Days Renvela (Sevelamer Carbonate) 800 Mg Tablet 800 Mg PO TIDWMEALS 30 Days Aspirin Ec (Aspirin) 81 Mg Tablet.dr 81 Mg PO DAILYWBKFT 30 Days Cozaar (Losartan Potassium) 50 Mg Tablet 100 Mg PO DAILY 30 Days Labetalol Hcl 200 Mg Tablet 200 Mg PO BID 30 Days Reported Soliqua 100 Unit-33 Mcg/ml Pen (Insulin Glargine/Lixisenatide) 3 Ml Insuln.pen 3 Ml SQ PRN PRN Lidocaine-Prilocaine Cream (Lidocaine/Prilocaine) 30 Gm Cream..g. 30 Gm TP PRN PRN Nephro-Shabana Tablet (Folic Acid/Vitamin B Comp W-C) 0.8 Mg Tablet 1 Tab PO DAILY Atorvastatin Calcium 40 Mg Tablet 1 Tab PO QHS Isosorbide Mononitrate Er (Isosorbide Mononitrate) 60 Mg Tab.er.24h 1 Tab PO DAILY Vitals/I & O Vital Sign - Last 24 Hours 04/27/20 04/27/20 04/27/20 04/27/20 16:00 22:00 22:15 22:15 Temp 96.8 97.5 96.8 97.5 Pulse 95 77 122 Resp 16 16 B/P (MAP) 164/69 (100) 156/83 156/83 (107) Pulse Ox 94 94 O2 Delivery Nasal Cannula Nasal Cannula Nasal Cannula O2 Flow Rate 8.0 8.0 8.0 04/28/20 04/28/20 04/28/20 03:59 06:02 08:10 Temp 98.5 97.6 98.5 97.6 Pulse 88 93 93 Resp 18 18 B/P (MAP) 158/70 (99) 187/95 (125) 187/95 Pulse Ox 90 96 O2 Delivery Nasal Cannula Nasal Cannula O2 Flow Rate 8.0 8.0 Intake and Output 04/27/20 04/27/20 04/28/20 15:00 23:00 07:00 Intake Total 240 ml Balance 240 ml Justifications for Admission Other Justification FATOU LOPEZ MD Apr 28, 2020 15:28
[2020-04-28 19:00] VITALS: BP 159/96
[2020-04-28] MEDS ORDERED: INSU100V35 SQ (19:41)
[2020-04-28] MEDS ORDERED: GABA-585 PO (19:41)
[2020-04-28] MEDS ORDERED: DEXA4TAB63 PO (19:41)
[2020-04-28] MEDS ORDERED: LABE200T4 PO (19:41)
[2020-04-28] MEDS ORDERED: APIX5TAB PO (19:41)
[2020-04-28] MEDS ORDERED: DOXY100T PO (19:41)
--- NOTE | 2020-04-28 19:43 | SNU/HH DC ---
DISCHARGE ORDERS DISCHARGE INFORMATION: DISCHARGE DATE: Apr 29, 2020 FINAL DIAGNOSIS Problems Medical Problems: (1) Acute pulmonary edema Status: Acute (2) Acute respiratory failure with hypoxia Status: Acute (3) Atrial fibrillation with RVR Status: Acute (4) COVID-19 Status: Acute (5) NSTEMI (non-ST elevated myocardial infarction) Status: Acute (6) Septic shock Status: Acute CONDITION ON DISCHARGE: Stable CODE STATUS: Code Status: Full RETIREMENT: SNF STAY <30 DAYS: Yes HOSPICE: HOSPICE: No HOSPICE EVAL & TREAT: No POST DISCHARGE ORDERS: ACTIVITY ORDERS: Activity as tolerated WEIGHT BEARING STATUS: As tolerated DIET AFTER DISCHARGE: Cardiac WOUND/INCISION CARE: Keep wound/cast CDI CHECKS AFTER DISCHARGE: CHECKS AFTER DISCHARGE: Check blood press - daily, Check blood sugar, ac/hs FOLLOW-UP: LAB ORDERS FOR FOLLOW-UP: ID Additional Instructions: dialysis , ,sat TREATMENT/EQUIPMENT ORDERS: ADAPTIVE EQUIPMENT NEEDED: Walker RESPIRATORY EQUIPMENT NEEDED: Oxygen Physical Therapy For: Evalulation/Treatment Occupational Therapy For: Evaluation/Treatment DISCHARGE MEDICATIONS: Home Meds Active Scripts Gabapentin (GABAPENTIN ) 100 Mg Capsule, 100 MG PO TID for neuropathy for 30 Days, #90 CAP Prov:YARELIS FONTENOT MD 04/28/20 Insulin Lispro (Admelog) 100 Unit/1 Ml Vial, 7 UNITS SQ TIDWMEALS for dm for 30 Days, EACH Prov:YARELIS FONTENOT MD 04/28/20 Dexamethasone (Decadron) 4 Mg Tablet, 4 MG PO DAILYWBKFT for covid for 7 Days, #7 TAB Prov:YARELIS FONTENOT MD 04/28/20 Apixaban (ELIQUIS) 5 Mg Tablet, 5 MG PO BID for afib for 30 Days, #60 TAB Prov:YARELIS FONTENOT MD 04/28/20 Doxycycline Hyclate (DOXYCYCLINE HYCLATE) 100 Mg Tablet, 100 MG PO BID for pneumonia for 7 Days, #14 TAB Prov:YARELIS FONTENOT MD 04/28/20 Labetalol Hcl (LABETALOL HCL) 200 Mg Tablet, 200 MG PO BID for htn for 30 Days, #60 TAB Prov:YARELIS FONTENOT MD 04/28/20 Sodium Bicarbonate (SODIUM BICARBONATE) 650 Mg Tablet, 650 MG PO TID for kidney for 30 Days, #90 TAB Prov:YARELIS FONTENOT MD 08/09/19 Sevelamer Carbonate (RENVELA) 800 Mg Tablet, 800 MG PO TIDWMEALS for kidney for 30 Days, #90 TAB Prov:YARELIS FONTENOT MD 08/09/19 Aspirin (ASPIRIN EC) 81 Mg Tablet.dr, 81 MG PO DAILYWBKFT for cad for 30 Days, #30 TAB.SR Prov:YARELIS FONTENOT MD 08/09/19 Losartan Potassium (COZAAR ) 50 Mg Tablet, 100 MG PO DAILY for htn for 30 Days, #60 TAB Prov:YARELIS FONTENOT MD 08/09/19 Reported Medications Lidocaine/Prilocaine (LIDOCAINE-PRILOCAINE CREAM) 30 Gm Cream..g., 30 GM TP PRN PRN for PRIOR TO PROCEDURE, EACH 02/14/20 Folic Acid/Vitamin B Comp W-C (NEPHRO-PETERSON TABLET) 0.8 Mg Tablet, 1 TAB PO DAILY for supplement, #30 TAB 5 Refills 02/14/20 Atorvastatin Calcium (ATORVASTATIN CALCIUM) 40 Mg Tablet, 1 TAB PO QHS, #90 TAB 3 Refills 03/05/19 Isosorbide Mononitrate (ISOSORBIDE MONONITRATE ER) 60 Mg Tab.er.24h, 1 TAB PO DAILY, #30 TAB 5 Refills 03/12/17 Discontinued Reported Medications Insulin Glargine/Lixisenatide (Soliqua 100 Unit-33 Mcg/ml Pen) 3 Ml Insuln.pen, 3 ML SQ PRN PRN for SEE COMMENTS, EACH 02/14/20 YARELIS FONTENOT MD Apr 28, 2020 19:43
[2020-04-28] MEDS: ATORVASTATIN CALCIUM 40 MG TABLET. PO SCH (20:22)
[2020-04-28] MEDS: METOPROLOL TART IMMED RELEASE 50 MG TABLET. PO SCH (20:23)
[2020-04-28] MEDS ORDERED: DARBEPOETIN ALFA 100 MCG/0.5 ML DISP.SYRIN. SQ SCH (21:00)
[2020-04-28 22:59] VITALS: BP 128/73
[2020-04-29 03:37] VITALS: BP 146/89
[2020-04-29 07:00] VITALS: BP 167/99
[2020-04-29] MEDS: PROCHLORPERAZINE 10 MG/2 ML VIAL. IV PRN (08:25)
[2020-04-29] MEDS: DEXAMETHASONE 4 MG TABLET PO SCH (08:25)
[2020-04-29] MEDS: FOLIC/VIT B COMP W-C (RENAL) TABLET. PO SCH (08:25)
[2020-04-29] MEDS: ASPIRIN ENTERIC COATED 81 MG TABLET.DR. PO SCH (08:26)
[2020-04-29] MEDS: SEVELAMER CARBONATE 800 MG TABLET. PO SCH ×3 (08:26→18:13)
[2020-04-29] MEDS: GABAPENTIN 100 MG CAPSULE. PO SCH ×3 (08:27→21:19)
[2020-04-29] MEDS: LACTOBACILLUS RHAMNOSUS GG 1 CAPSULE. PO SCH ×2 (08:27→21:19)
[2020-04-29] MEDS: METOPROLOL TART IMMED RELEASE 50 MG TABLET. PO SCH ×2 (08:27→21:19)
[2020-04-29] MEDS: APIXABAN 5 MG TABLET. PO SCH ×2 (08:27→21:19)
[2020-04-29] MEDS: DOXYCYCLINE HYCLATE 100 MG TABLET PO SCH ×2 (08:33→21:19)
[2020-04-29] MEDS: INSULIN LISPRO 300 UNITS/3 ML VIAL. SQ SCH ×3 (08:41→18:15)
--- NOTE | 2020-04-29 09:11 | PDOC ---
PROGRESS NOTES Date of Service: DATE: 04/29/20 TIME: 09:09 Subjective Subjective weak Objective Objective Vital Signs Date Time Temp Pulse Resp B/P (MAP) Pulse Ox O2 Delivery O2 Flow Rate FiO2 04/29/20 08:27 114 146/89 04/29/20 07:00 97.6 20 98 Nasal Cannula 10.0 97.6 Intake and Output 04/29/20 07:00 Intake Total 200 ml Balance 200 ml Intake Oral 200 ml Physical Exam Abdomen: Soft Heart: Normal S2, Other (AFIB ) Extremities: Normal pulses, Other (trace bilateral LE edema ) General: Alert, Oriented X3, Cooperative, mild distress HEENT: Atraumatic, Mucous membr. moist/pink Lungs: Other (on BIPAP) MUSCULOSKELETAL: Osteoarthritic changes both hands Neuro: Normal speech, Sensation intact Psych/Mental Status: Mental status NL Skin: No significant lesion Diagnosis Problem List Problems Medical Problems: (1) Acute pulmonary edema Status: Acute (2) Acute respiratory failure with hypoxia Status: Acute (3) Atrial fibrillation with RVR Status: Acute (4) COVID-19 Status: Acute (5) NSTEMI (non-ST elevated myocardial infarction) Status: Acute (6) Septic shock Status: Acute Assessment Assessment Problems Medical Problems: (1) Acute pulmonary edema Status: Acute (2) Acute respiratory failure with hypoxia Status: Acute (3) Atrial fibrillation with RVR Status: Acute (4) COVID-19 Status: Acute (5) NSTEMI (non-ST elevated myocardial infarction) Status: Acute (6) Septic shock Status: Acute FINAL IMPRESSION: 1. Shortness of breath, combination of heart failure as well as Covid pneum onia. 2. Recent COVID infection. 3. Coronary artery disease. She has a distal LAD disease, had a cardiac catheterization 07/2019. 4. End-stage renal disease, on hemodialysis. 5. Insulin-dependent diabetes. 6. Diastolic heart failure. 7. Hyperlipidemia. PLAN:LTAC/MAR/SNU screen wbc 11 , cr 4,5 cxr rt pleural effusion. 8 L oxygen SNU screen . on Eliquis po bid for a fib CTA -neg for PE completed remdisivr . DIalysis wednesday po dexamethasome completed IV antibiotics. zithromax+vanco+cefepime slight nicanor troponin demand ischemia spoke with Pulmonary+cardiology add gabapentin for leg pain for neuropathy Plan Plan of Care Problems Medical Problems: (1) Acute pulmonary edema Status: Acute (2) Acute respiratory failure with hypoxia Status: Acute (3) Atrial fibrillation with RVR Status: Acute (4) COVID-19 Status: Acute (5) NSTEMI (non-ST elevated myocardial infarction) Status: Acute (6) Septic shock Status: Acute Comment Review of Relevant I have reviewed the following items allen (where applicable) has been applied. Labs Laboratory Tests Test 04/28/20 12:14 04/28/20 17:07 04/28/20 21:15 04/29/20 07:36 Glucose (Fingerstick) 330 mg/dL (70-99) 325 mg/dL (70-99) 304 mg/dL (70-99) 275 mg/dL (70-99) Microbiology 04/22/20 Blood Culture - Final, Complete NO GROWTH AFTER 5 DAYS Medications Current Medications Darbepoetin Aman (ARANESP for DIALYSIS PTS) 100 mcg WEEKLYHS SQ ; Start 04/28/20 at 21:00; Stop 04/28/20 at 20:14; Status DC Darbepoetin Aman (ARANESP for DIALYSIS PTS) 100 mcg WEEKLYHS SQ ; Start 04/30/20 at 21:00 Doxycycline Hyclate (Vibra-Tab) 100 mg BID PO Last administered on 04/29/20at 08:33; Start 04/28/20 at 12:00 Metoprolol Tartrate (Lopressor) 50 mg BID PO Last administered on 04/29/20at 08:27; Start 04/28/20 at 21:00 Vitals/I & O Vital Sign - Last 24 Hours 04/28/20 04/28/20 04/28/20 04/28/20 11:00 15:00 19:00 20:00 Temp 97.0 95.6 96.4 97.0 95.6 96.4 Pulse 130 103 90 Resp 16 20 18 B/P (MAP) 160/87 (111) 165/117 (133) 159/96 (117) Pulse Ox 86 97 90 O2 Delivery Nasal Cannula Nasal Cannula Nasal Cannula Nasal Cannula O2 Flow Rate 8.0 8.0 8.0 8.0 04/28/20 04/28/20 04/29/20 04/29/20 20:23 22:59 03:37 04:01 Temp 96.8 97.0 96.8 97.0 Pulse 116 108 114 Resp 20 20 B/P (MAP) 159/96 128/73 (91) 146/89 (108) Pulse Ox 97 90 97 O2 Delivery Nasal Cannula Nasal Cannula Nasal Cannula O2 Flow Rate 8.0 8.0 8.0 04/29/20 04/29/20 07:00 08:27 Temp 97.6 97.6 Pulse 86 114 Resp 20 B/P (MAP) 167/99 (121) 146/89 Pulse Ox 98 O2 Delivery Nasal Cannula O2 Flow Rate 10.0 Intake and Output 04/28/20 04/28/20 04/29/20 15:00 23:00 07:00 Intake Total 200 ml Balance 200 ml Justifications for Admission Other Justification YARELIS FONTENOT MD Apr 29, 2020 09:11
[2020-04-29] MEDS ORDERED: INSU100I13 SQ (09:12)
--- NOTE | 2020-04-29 10:07 | PDOC ---
DATE OF SERVICE DATE: 04/29/20 TIME: 10:06 SUBJECTIVE ROS stable OBJECTIVE Vital Signs Vital Signs Date Time Temp Pulse Resp B/P (MAP) Pulse Ox O2 Delivery O2 Flow Rate FiO2 04/29/20 08:27 114 146/89 04/29/20 08:00 Nasal Cannula 8.0 04/29/20 07:00 97.6 20 98 97.6 I & 0 Intake and Output 04/29/20 07:00 Intake Total 200 ml Balance 200 ml Intake Oral 200 ml PHYSICAL EXAM Physical Exam GEN: NAD HEEN OM moist, On O2 NC NECK: supple CVS: S1S2 RESP: Non labored GI: Soft, NT : No CVA tenderness, No Suprapubic Tenderness NEURO Ax3, grossly normal SKIN No Rash EXT mild LE edema DIAGNOSIS/ASSESSMENT Assessment & Plan ESRD- on HD TTS since July 2019 No indication for HD Ac Resp Failure- stable , Cxr 04/27 - . Stable moderate right pleural effusion tracking within the pleural fissures.2. Stable diffuse mixed interstitial and alveolar infiltrate with suspected partial right lower lobe consolidation. CoVID 19 diagnosed recently- Remdesivir, Decadron . CTA negative for PE COMMENT/RELEVANT DATA Meds Current Medications Medications (Trade) Dose Ordered Sig/Joshua Start Time Stop Time Status Last Admin Dose Admin Albumin Human 200 ml @ 200 mls/hr 1X PRN PRN 04/27/20 16:45 04/27/20 22:44 DC Apixaban (Eliquis) 5 mg BID 04/24/20 21:00 04/29/20 08:27 5 MG Aspirin (Ecotrin) 81 mg DAILYWBKFT 04/23/20 08:00 04/29/20 08:26 81 MG Atorvastatin Calcium (Lipitor) 40 mg QHS 04/22/20 21:00 04/28/20 20:22 40 MG Azithromycin 250 ml @ 250 mls/hr 1X ONCE 04/22/20 11:00 04/22/20 11:59 DC 04/22/20 17:05 250 MLS/HR Azithromycin 250 mg/Sodium Chloride 250 ml @ 250 mls/hr Q24H 04/23/20 17:00 04/26/20 17:00 DC 04/26/20 21:46 250 MLS/HR Aztreonam (Azactam) 2 gm 1X ONCE 04/22/20 10:45 04/22/20 10:53 DC Cefepime HCl (Maxipime) 1 gm Q24H 04/23/20 09:00 04/28/20 11:10 DC 04/28/20 08:12 1 GM Darbepoetin Aman (ARANESP for DIALYSIS PTS) 100 mcg WEEKLYHS 04/30/20 21:00 Dexamethasone (Decadron) 6 mg DAILYWBKFT 04/23/20 08:00 04/29/20 08:25 6 MG Dexamethasone Sodium Phosphate (Decadron) 10 mg 1X ONCE 04/22/20 17:30 04/22/20 17:31 DC 04/22/20 17:34 10 MG Dextrose (Dextrose 50%-Water Syringe) 12.5 gm PRN Q15MIN PRN 04/22/20 17:15 Digoxin (Lanoxin) 500 mcg 1X ONCE 04/25/20 13:45 04/25/20 13:53 DC 04/25/20 14:23 500 MCG Diltiazem HCl (Cardizem Iv Push) 20 mg 1X ONCE 04/22/20 08:30 04/22/20 08:33 DC 04/22/20 09:21 20 MG Diltiazem HCl 125 mg/Sodium Chloride 125 ml @ 5 mls/hr CONT PRN 04/22/20 08:45 04/23/20 15:41 DC 04/23/20 01:56 15 MLS/HR Dopamine HCl/ Dextrose 250 ml @ As Directed STK-MED ONCE 04/24/20 11:47 04/24/20 11:47 DC Doxycycline Hyclate (Vibra-Tab) 100 mg BID 04/28/20 12:00 04/29/20 08:33 100 MG Enoxaparin Sodium (Lovenox 40mg Syringe) 40 mg Q24H 04/22/20 17:15 UNV Enoxaparin Sodium (Lovenox Per Pharmacy Treatment Dosing) 1 each PRN DAILY PRN 04/22/20 17:30 UNV Furosemide (Lasix) 60 mg 1X ONCE 04/22/20 08:45 04/22/20 08:46 DC 04/22/20 09:25 60 MG Gabapentin (Neurontin) 100 mg TID 04/25/20 10:00 04/29/20 08:27 100 MG Guaifenesin/ Codeine Phosphate (Robitussin Ac) 10 ml PRN Q6HRS PRN 04/22/20 08:45 04/28/20 14:01 10 ML Heparin Sodium (Porcine) (Heparin Sodium) 1,600 unit PRN Q6HRS PRN 04/23/20 11:00 04/24/20 13:33 DC 04/24/20 02:18 1,600 UNIT Heparin Sodium/ Dextrose 250 ml @ 20 mls/hr CONT PRN 04/23/20 11:00 04/24/20 13:33 DC 04/23/20 23:59 16.976 MLS/HR Info (Anti-Coagulation Monitoring By Pharmacy) 1 each PRN DAILY PRN 04/26/20 08:30 04/26/20 08:31 1 EACH Info (CONTRAST GIVEN -- Rx MONITORING) 1 each PRN DAILY PRN 04/24/20 10:30 04/26/20 10:29 DC Info (PHARMACY MONITORING -- do not chart) 1 each PRN DAILY PRN 04/27/20 16:45 Insulin Glargine (Lantus Syringe) 10 unit QHS 04/29/20 21:00 Insulin Human Lispro (HumaLOG) 0-7 UNITS TIDWMEALS 04/22/20 18:00 04/29/20 08:41 7 UNITS Iohexol (Omnipaque 350 Mg/ml) 100 ml 1X ONCE 04/24/20 10:30 04/24/20 10:31 DC 04/24/20 10:54 100 ML Isosorbide Mononitrate (Imdur) 60 mg DAILY 04/23/20 09:00 04/25/20 13:50 DC 04/25/20 12:26 60 MG Labetalol HCl (Trandate) 200 mg BID 04/22/20 21:00 04/25/20 10:30 DC 04/24/20 08:57 200 MG Lactobacillus Rhamnosus (Culturelle) 1 cap BID 04/23/20 21:00 04/29/20 08:27 1 CAP Losartan Potassium (Cozaar) 100 mg DAILY 04/23/20 09:00 04/25/20 13:50 DC 04/24/20 08:55 100 MG Magnesium Sulfate 50 ml @ 25 mls/hr PRN DAILY PRN 04/26/20 11:00 Metoprolol Tartrate (Lopressor) 50 mg BID 04/28/20 21:00 04/29/20 08:27 50 MG Metronidazole 100 ml @ 100 mls/hr 1X ONCE 04/22/20 10:45 04/22/20 10:53 DC Morphine Sulfate (Morphine Sulfate) 2 mg PRN Q2HR PRN 04/22/20 11:30 04/23/20 11:29 DC 04/22/20 22:03 2 MG Nitroglycerin (Nitro-Bid Oint) 1.5 inch 1X ONCE 04/22/20 08:30 04/22/20 08:33 DC 04/22/20 09:35 1 INCH Nitroglycerin/ Dextrose 250 ml @ 0 mls/hr 1X ONCE 04/22/20 08:30 04/22/20 08:39 DC Norepinephrine Bitartrate 8 mg/ Dextrose 258 ml @ 20.705 mls/ hr CONT PRN 04/24/20 13:30 04/25/20 15:43 DC Ondansetron HCl (Zofran) 8 mg STK-MED ONCE 04/23/20 18:00 04/24/20 08:20 DC Prochlorperazine Edisylate (Compazine) 5 mg PRN Q6HRS PRN 04/24/20 14:45 04/29/20 08:25 5 MG Remdesivir 100 mg/ Sodium Chloride 230 ml @ 460 mls/hr Q24H 04/24/20 11:00 04/27/20 11:29 DC 04/27/20 13:07 460 MLS/HR Remdesivir 200 mg/ Sodium Chloride 210 ml @ 210 mls/hr 1X ONCE 04/23/20 11:00 04/23/20 11:59 DC 04/23/20 14:03 210 MLS/HR Sevelamer Carbonate (Renvela) 2,400 mg TIDWMEALS 04/26/20 11:00 04/29/20 08:26 2,400 MG Sodium Bicarbonate (Sodium Bicarbonate) 650 mg TID 04/22/20 21:00 04/28/20 14:51 DC 04/28/20 14:02 650 MG Sodium Chloride 1,000 ml @ 400 mls/hr Q2H30M PRN 04/27/20 16:45 04/28/20 04:44 DC Vancomycin HCl (Vanco Per Pharmacy) 1 each PRN DAILY PRN 04/23/20 17:00 04/28/20 11:12 DC 04/26/20 08:31 1 EACH Vancomycin HCl (Vancomycin Random Level) 1 each 1X ONCE 04/23/20 06:00 04/23/20 06:01 DC 04/23/20 06:00 1 EACH Vancomycin HCl 500 mg/Sodium Chloride 100 ml @ 100 mls/hr QTUTHSA 04/23/20 16:00 04/28/20 11:10 DC 04/27/20 14:49 100 MLS/HR Vancomycin HCl 2 gm/Sodium Chloride 500 ml @ 250 mls/hr 1X ONCE 04/22/20 11:00 04/22/20 12:59 DC 04/22/20 12:35 250 MLS/HR Vitamin B Complex/ Vitamin C (Amaya-Shabana) 1 tab DAILY 04/23/20 09:00 04/29/20 08:25 1 TAB Lab Laboratory Tests Test 04/28/20 12:14 04/28/20 17:07 04/28/20 21:15 04/29/20 07:36 Glucose (Fingerstick) 330 mg/dL (70-99) 325 mg/dL (70-99) 304 mg/dL (70-99) 275 mg/dL (70-99) Results All relevant outside records, renal labs, imaging studies, telemetry/EKG's were reviewed. Justicifation of Admission Dx: Justifications for Admission: Justification of Admission Dx: Yes HIMANSHU MCGOVERN MD Apr 29, 2020 10:07
[2020-04-29] MEDS: ANTI-COAG MONITOR BY PHARMACY. MC PRN (10:08)
[2020-04-29 10:18] LABS: CREATININE 5.9 mg/dL (0.6-1.0); GFR 7.4; PHOSPHORUS 8.2 mg/dL (2.6-4.7); POTASSIUM 5.2 mmol/L (3.5-5.1)
[2020-04-29 11:21] VITALS: BP 139/67
--- NOTE | 2020-04-29 11:29 | PDOC ---
PULMONARY PROGRESS NOTES DATE: 04/29/20 TIME: 11:29 Subjective Remains on 8 liters N/C No SOA or increased cough No other concerns overnight from nursing Vitals Vital Signs Date Time Temp Pulse Resp B/P (MAP) Pulse Ox O2 Delivery O2 Flow Rate FiO2 04/29/20 11:21 97.6 105 22 139/67 (91) 94 Nasal Cannula 8.0 97.6 ROS: No Nausea, No Chest Pain, No Abdominal Pain, No Increase Cough General: Alert Lungs: Clear Cardiovascular: S1, S2 Abdomen: Soft Neuro Exam: Alert Extremities: No Edema Skin: Warm Labs Laboratory Tests Test 04/27/20 12:26 04/27/20 22:18 04/28/20 04:30 04/28/20 08:25 Glucose (Fingerstick) 279 mg/dL (70-99) 237 mg/dL (70-99) 324 mg/dL (70-99) Sodium Level 139 mmol/L (136-145) Potassium Level 4.7 mmol/L (3.5-5.1) Chloride Level 97 mmol/L (98-107) Carbon Dioxide Level 30 mmol/L (21-32) Anion Gap 12 (6-14) Blood Urea Nitrogen 43 mg/dL (7-20) Creatinine 3.7 mg/dL (0.6-1.0) Estimated GFR (Cockcroft-Gault) 12.7 Glucose Level 280 mg/dL (70-99) Calcium Level 9.4 mg/dL (8.5-10.1) Phosphorus Level 6.1 mg/dL (2.6-4.7) Magnesium Level 2.5 mg/dL (1.8-2.4) Albumin 2.7 g/dL (3.4-5.0) Test 04/28/20 12:14 04/28/20 17:07 04/28/20 21:15 04/29/20 07:36 Glucose (Fingerstick) 330 mg/dL (70-99) 325 mg/dL (70-99) 304 mg/dL (70-99) 275 mg/dL (70-99) Test 04/29/20 07:40 04/29/20 07:45 Sodium Level 136 mmol/L (136-145) Potassium Level 5.2 mmol/L (3.5-5.1) Chloride Level 94 mmol/L (98-107) Carbon Dioxide Level 28 mmol/L (21-32) Anion Gap 14 (6-14) Blood Urea Nitrogen 90 mg/dL (7-20) Creatinine 5.9 mg/dL (0.6-1.0) Estimated GFR (Cockcroft-Gault) 7.4 Glucose Level 253 mg/dL (70-99) Calcium Level 10.0 mg/dL (8.5-10.1) Phosphorus Level 8.2 mg/dL (2.6-4.7) Albumin 3.0 g/dL (3.4-5.0) Magnesium Level 2.9 mg/dL (1.8-2.4) Laboratory Tests Test 04/28/20 12:14 04/28/20 17:07 04/28/20 21:15 04/29/20 07:36 Glucose (Fingerstick) 330 mg/dL (70-99) 325 mg/dL (70-99) 304 mg/dL (70-99) 275 mg/dL (70-99) Test 04/29/20 07:40 04/29/20 07:45 Sodium Level 136 mmol/L (136-145) Potassium Level 5.2 mmol/L (3.5-5.1) Chloride Level 94 mmol/L (98-107) Carbon Dioxide Level 28 mmol/L (21-32) Anion Gap 14 (6-14) Blood Urea Nitrogen 90 mg/dL (7-20) Creatinine 5.9 mg/dL (0.6-1.0) Estimated GFR (Cockcroft-Gault) 7.4 Glucose Level 253 mg/dL (70-99) Calcium Level 10.0 mg/dL (8.5-10.1) Phosphorus Level 8.2 mg/dL (2.6-4.7) Albumin 3.0 g/dL (3.4-5.0) Magnesium Level 2.9 mg/dL (1.8-2.4) Medications Active Scripts Medications Dose Route/Sig Max Daily Dose Days Date Category Soliqua 100 Unit-33 Mcg/ml Pen (Insulin Glargine/Lixisenatide) 3 Ml Insuln.pen 3 Ml SQ PRN PRN 02/14/20 Reported Lidocaine-Prilocaine Cream (Lidocaine/Prilocaine) 30 Gm Cream..g. 30 Gm TP PRN PRN 02/14/20 Reported Nephro-Shabana Tablet (Folic Acid/Vitamin B Comp W-C) 0.8 Mg Tablet 1 Tab PO DAILY 02/14/20 Reported Sodium Bicarbonate 650 Mg Tablet 650 Mg PO TID 30 08/09/19 Rx Renvela (Sevelamer Carbonate) 800 Mg Tablet 800 Mg PO TIDWMEALS 30 08/09/19 Rx Aspirin Ec (Aspirin) 81 Mg Tablet.dr 81 Mg PO DAILYWBKFT 30 08/09/19 Rx Cozaar (Losartan Potassium) 50 Mg Tablet 100 Mg PO DAILY 30 08/09/19 Rx Labetalol Hcl 200 Mg Tablet 200 Mg PO BID 30 08/09/19 Rx Atorvastatin Calcium 40 Mg Tablet 1 Tab PO QHS 03/05/19 Reported Isosorbide Mononitrate Er (Isosorbide Mononitrate) 60 Mg Tab.er.24h 1 Tab PO DAILY 03/12/17 Reported Comments CXR 04/26/20 IMPRESSION: 1. Progression of bilateral perihilar and basilar opacities. 2. Moderate right pleural effusion. CTA chest IMPRESSION: 1. No evidence of pulmonary thromboembolic disease. 2. Diffuse bilateral groundglass opacities, likely multifocal infection or edema. 3. Large right pleural effusion with relaxation atelectasis of much of the right lower lobe. 4. Extensive coronary artery atherosclerotic disease. Impression . IMPRESSION: 1. Acute hypoxemic respiratory failure secondary to COVID-19 viral pneumonia. 2. COVID-19 viral pneumonia. 3. Possible bacterial pneumonia. 4. CTA neg for PE 5. Bilateral pulmonary infiltrates compatible with viral pneumonia, possible bacterial pneumonia. 6. Renal failure. 7. Diabetes. 8. Hypertension. Plan . PLAN: Continue current supplemental oxygen, now on 8 liters N/C tolerating well 6 min walk before discharge, Needs 6-minute walk patient discharges to rehab facility, social work working on discharging to [facility] rehab facility Follow chest x-ray as needed continue eliquis Continue full course of remdesivir, 5 day course Continue IV steroids with slow taper, will need full 10 day course, started 04/22 Continue empiric antibiotics, currently doxy Follow nephrology recommendations in regards to hemodialysis Follow cardiology recommendations Physical therapy/Occupational Therapy Social work for [place] planning DVT/GI prophylaxis Discussed with TANJA BHARDWAJ MD Apr 29, 2020 11:29
--- NOTE | 2020-04-29 12:34 | NUR ---
SS following up with discharge planning. SS reviewed pt chart and discussed with pt RN. Pt is from home and is currently requiring oxygen at 8-10 liters nasal canula. COVID19 positive. Pt has outpatient dialysis at [facility]. Dr. Colon requesting referrals to either [facility], ; fax [phone], or [facility], ; fax [phone]. PT/OT ordered. SS currently awaiting PT/OT evaluations. SS will continue to follow for discharge planning.
--- NOTE | 2020-04-29 13:08 | PDOC ---
CARDIO Progress Notes Date and Time Date of Service 04/29/19 Time of Evaluation 1300 Subjective Subjective: No Chest Pain, No Palpitations, Other (not more SOA. on NC) Vitals Vitals Vital Signs Date Time Temp Pulse Resp B/P (MAP) Pulse Ox O2 Delivery O2 Flow Rate FiO2 04/29/20 11:21 97.6 105 22 139/67 (91) 94 Nasal Cannula 8.0 97.6 Weight Weight [ ] Input and Output Intake and Output Intake and Output 04/29/20 07:00 Intake Total 200 ml Balance 200 ml Intake Oral 200 ml Laboratory Labs Laboratory Tests Test 04/28/20 17:07 04/28/20 21:15 04/29/20 07:36 04/29/20 07:40 Glucose (Fingerstick) 325 mg/dL (70-99) 304 mg/dL (70-99) 275 mg/dL (70-99) Sodium Level 136 mmol/L (136-145) Potassium Level 5.2 mmol/L (3.5-5.1) Chloride Level 94 mmol/L (98-107) Carbon Dioxide Level 28 mmol/L (21-32) Anion Gap 14 (6-14) Blood Urea Nitrogen 90 mg/dL (7-20) Creatinine 5.9 mg/dL (0.6-1.0) Estimated GFR (Cockcroft-Gault) 7.4 Glucose Level 253 mg/dL (70-99) Calcium Level 10.0 mg/dL (8.5-10.1) Phosphorus Level 8.2 mg/dL (2.6-4.7) Albumin 3.0 g/dL (3.4-5.0) Test 04/29/20 07:45 04/29/20 10:27 Magnesium Level 2.9 mg/dL (1.8-2.4) Glucose (Fingerstick) 203 mg/dL (70-99) Microbiology Micro Microbiology 04/22/20 Blood Culture - Final, Complete NO GROWTH AFTER 5 DAYS Physical Exam HEENT: Neck Supple W Full Motion Chest: Symmetric LUNGS: Other (on NC) Heart: irregularly irregular (AFIB, rate controlled ) Abdomen: Other (obese ) Extremities: Other (trace bilateral LE edema ) Neurology: alert, oriented, follow commands, other (appears fatigued ) Assessment Assessment 1. Acute respiratory failure with COVID PNA. Remdesivir, Decadron initiated. + nearly 3 weeks ago. CTA negative for PE 2. Acute on chronic diastolic CHF; Echo 08/13 with preserved LV systolic functio n. 3. ESRD on HD 4. Mild troponin elevation; highest 0.8. Most probable type II, demand ischemia. CP free. 5. CAD; recent cath with diffused LAD disease with fixed defect on MPI. No lesions needing intervention. 6. Leukocytosis, lactic acidosis 7. Accelerated HTN; controlled overall 8. PAFIB with RVR upon arrival; rate controlled. On Eliquis 9. Diabetes, II 10. Hyperlipidemia; statin 11. Morbid obesity 12. LE PAD: no claudications or wounds. 13. Thrombocytopenia; PLT 106 Recommendations Secondary prevention measures ASA, statin Continue metoprolol for rate control Eliquis for stroke prohphylaxis Fluid offloading via HD Ongoing lung optimization as per pulm. Plans to discharge to [facility] rehab Consider outpatient ischemic evaluation Follow up with Dr. Lazo as scheduled Justicifation of Admission Dx: Justifications for Admission: Justification of Admission Dx: Yes PAUL MARTIN APRN Apr 29, 2020 13:08
[2020-04-29] MEDS: guaiFENesin/CODEINE 100mg/10mg 5 ML LIQUID PO PRN (13:30)
[2020-04-29 15:00] VITALS: BP 158/92
[2020-04-29 19:10] VITALS: BP 159/107
[2020-04-29] MEDS: INSULIN GLARGINE SYRINGE. SQ SCH (21:19)
[2020-04-29] MEDS: ATORVASTATIN CALCIUM 40 MG TABLET. PO SCH (21:19)
[2020-04-29 23:05] VITALS: BP 149/76
[2020-04-30 03:34] VITALS: BP 121/59
[2020-04-30] MEDS: PROCHLORPERAZINE 10 MG/2 ML VIAL. IV PRN (06:03)
[2020-04-30 07:00] VITALS: BP 151/83
[2020-04-30] MEDS: INSULIN LISPRO 300 UNITS/3 ML VIAL. SQ SCH ×3 (08:00→18:45)
[2020-04-30] MEDS: DEXAMETHASONE 4 MG TABLET PO SCH (08:00)
[2020-04-30] MEDS: SEVELAMER CARBONATE 800 MG TABLET. PO SCH ×3 (08:00→18:30)
[2020-04-30] MEDS: ANTI-COAG MONITOR BY PHARMACY. MC PRN (08:01)
--- NOTE | 2020-04-30 08:59 | PDOC ---
PROGRESS NOTES Date of Service: DATE: 04/30/20 TIME: 08:59 Subjective Subjective feels stronger Objective Objective Vital Signs Date Time Temp Pulse Resp B/P (MAP) Pulse Ox O2 Delivery O2 Flow Rate FiO2 04/30/20 08:01 Nasal Cannula 6.0 04/30/20 07:00 97.6 95 24 151/83 (105) 95 97.6 Intake and Output 04/30/20 07:00 Intake Total 1280 ml Output Total 0 ml Balance 1280 ml Intake Oral 1280 ml Output Urine Total 0 ml Physical Exam Abdomen: Soft Heart: Normal S2, Other (AFIB ) Extremities: Normal pulses, Other (trace bilateral LE edema ) General: Alert, Oriented X3, Cooperative, mild distress HEENT: Atraumatic, Mucous membr. moist/pink Lungs: Other (on BIPAP) MUSCULOSKELETAL: Osteoarthritic changes both hands Neuro: Normal speech, Sensation intact Psych/Mental Status: Mental status NL Skin: No significant lesion Diagnosis Problem List Problems Medical Problems: (1) Acute pulmonary edema Status: Acute (2) Acute respiratory failure with hypoxia Status: Acute (3) Atrial fibrillation with RVR Status: Acute (4) COVID-19 Status: Acute (5) NSTEMI (non-ST elevated myocardial infarction) Status: Acute (6) Septic shock Status: Acute Assessment Assessment Problems Medical Problems: (1) Acute pulmonary edema Status: Acute (2) Acute respiratory failure with hypoxia Status: Acute (3) Atrial fibrillation with RVR Status: Acute (4) COVID-19 Status: Acute (5) NSTEMI (non-ST elevated myocardial infarction) Status: Acute (6) Septic shock Status: Acute FINAL IMPRESSION: 1. Shortness of breath, combination of heart failure as well as Covid pneumonia. 2. Recent COVID infection. 3. Coronary artery disease. She has a distal LAD disease, had a cardiac catheterization 07/2019. 4. End-stage renal disease, on hemodialysis. 5. Insulin-dependent diabetes. 6. Diastolic heart failure. 7. Hyperlipidemia. PLAN: Dialysis today LTAC/MAR/SNU screen wbc 11 , cr 4,5 cxr rt pleural effusion. 8 L oxygen SNU screen . on Eliquis po bid for a fib CTA -neg for PE completed remdisivr . DIalysis wednesday po dexamethasome completed IV antibiotics. zithromax+vanco+cefepime slight nicanor troponin demand ischemia spoke with Pulmonary+cardiology add gabapentin for leg pain for neuropathy Plan Plan of Care Problems Medical Problems: (1) Acute pulmonary edema Status: Acute (2) Acute respiratory failure with hypoxia Status: Acute (3) Atrial fibrillation with RVR Status: Acute (4) COVID-19 Status: Acute (5) NSTEMI (non-ST elevated myocardial infarction) Status: Acute (6) Septic shock Status: Acute Comment Review of Relevant I have reviewed the following items allen (where applicable) has been applied. Labs Laboratory Tests Test 04/29/20 10:27 04/29/20 17:00 04/29/20 21:12 04/30/20 07:35 Glucose (Fingerstick) 203 mg/dL (70-99) 245 mg/dL (70-99) 247 mg/dL (70-99) 296 mg/dL (70-99) Microbiology 04/22/20 Blood Culture - Final, Complete NO GROWTH AFTER 5 DAYS Medications Current Medications Darbepoetin Aman (ARANESP for DIALYSIS PTS) 100 mcg WEEKLYHS SQ ; Start 04/30/20 at 21:00 Insulin Glargine (Lantus Syringe) 10 unit QHS SQ Last administered on 04/29/20at 21:19; Start 04/29/20 at 21:00 Vitals/I & O Vital Sign - Last 24 Hours 04/29/20 04/29/20 04/29/20 04/29/20 11:21 15:00 19:10 19:55 Temp 97.6 97.8 97.5 97.6 97.8 97.5 Pulse 105 99 116 Resp 22 22 24 B/P (MAP) 139/67 (91) 158/92 (114) 159/107 (124) Pulse Ox 94 97 97 O2 Delivery Nasal Cannula Nasal Cannula Nasal Cannula Nasal Cannula O2 Flow Rate 8.0 9.0 9.0 9.0 04/29/20 04/29/20 04/30/20 04/30/20 21:19 23:05 03:34 07:00 Temp 98.0 99.1 97.6 98.0 99.1 97.6 Pulse 116 117 108 95 Resp 18 18 24 B/P (MAP) 159/107 149/76 (100) 121/59 (79) 151/83 (105) Pulse Ox 92 90 95 O2 Delivery Nasal Cannula Nasal Cannula Nasal Cannula O2 Flow Rate 9.0 9.0 6.0 04/30/20 08:01 O2 Delivery Nasal Cannula O2 Flow Rate 6.0 Intake and Output 04/29/20 04/29/20 04/30/20 15:00 23:00 07:00 Intake Total 480 ml 800 ml Output Total 0 ml Balance 480 ml 800 ml Justifications for Admission Other Justification YARELIS FONTENOT MD Apr 30, 2020 08:59
[2020-04-30 09:02] LABS: ALBUMIN 2.9 g/dL (3.4-5.0); CALCIUM 9.5 mg/dL (8.5-10.1); CREATININE 6.7 mg/dL (0.6-1.0); GFR 6.4; POTASSIUM 5.8 mmol/L (3.5-5.1)
[2020-04-30 09:04] LABS: PHOSPHORUS 9.3 mg/dL (2.6-4.7)
--- NOTE | 2020-04-30 10:01 | PDOC ---
DATE OF SERVICE DATE: 04/30/20 TIME: 10:00 SUBJECTIVE ROS stable , sitting up in chair OBJECTIVE Vital Signs Vital Signs Date Time Temp Pulse Resp B/P (MAP) Pulse Ox O2 Delivery O2 Flow Rate FiO2 04/30/20 08:01 Nasal Cannula 6.0 04/30/20 07:00 97.6 95 24 151/83 (105) 95 97.6 I & 0 Intake and Output 04/30/20 07:00 Intake Total 1280 ml Output Total 0 ml Balance 1280 ml Intake Oral 1280 ml Output Urine Total 0 ml PHYSICAL EXAM Physical Exam GEN: NAD HEEN OM moist, On O2 NC NECK: supple CVS: S1S2 RESP: Non labored GI: Soft, NT : No CVA tenderness, No Suprapubic Tenderness NEURO Ax3, grossly normal SKIN No Rash EXT mild LE edema DIAGNOSIS/ASSESSMENT Assessment & Plan ESRD- on HD TTS since July 2019 Dialysis today, discussed treatment plan with Katelyn Bell Resp Failure- stable , Cxr 04/27 - . Stable moderate right pleural effusion tracking within the pleural fissures.2. Stable diffuse mixed interstitial and alveolar infiltrate with suspected partial right lower lobe consolidation. CoVID 19 diagnosed recently- Remdesivir, Decadron . CTA negative for PE COMMENT/RELEVANT DATA Meds Current Medications Medications (Trade) Dose Ordered Sig/Joshua Start Time Stop Time Status Last Admin Dose Admin Albumin Human 200 ml @ 200 mls/hr 1X PRN PRN 04/27/20 16:45 04/27/20 22:44 DC Apixaban (Eliquis) 5 mg BID 04/24/20 21:00 04/29/20 21:19 5 MG Aspirin (Ecotrin) 81 mg DAILYWBKFT 04/23/20 08:00 04/29/20 08:26 81 MG Atorvastatin Calcium (Lipitor) 40 mg QHS 04/22/20 21:00 04/29/20 21:19 40 MG Azithromycin 250 ml @ 250 mls/hr 1X ONCE 04/22/20 11:00 04/22/20 11:59 DC 04/22/20 17:05 250 MLS/HR Azithromycin 250 mg/Sodium Chloride 250 ml @ 250 mls/hr Q24H 04/23/20 17:00 04/26/20 17:00 DC 04/26/20 21:46 250 MLS/HR Aztreonam (Azactam) 2 gm 1X ONCE 04/22/20 10:45 04/22/20 10:53 DC Cefepime HCl (Maxipime) 1 gm Q24H 04/23/20 09:00 04/28/20 11:10 DC 04/28/20 08:12 1 GM Darbepoetin Aman (ARANESP for DIALYSIS PTS) 100 mcg WEEKLYHS 04/30/20 21:00 Dexamethasone (Decadron) 6 mg DAILYWBKFT 04/23/20 08:00 04/29/20 08:25 6 MG Dexamethasone Sodium Phosphate (Decadron) 10 mg 1X ONCE 04/22/20 17:30 04/22/20 17:31 DC 04/22/20 17:34 10 MG Dextrose (Dextrose 50%-Water Syringe) 12.5 gm PRN Q15MIN PRN 04/22/20 17:15 Digoxin (Lanoxin) 500 mcg 1X ONCE 04/25/20 13:45 04/25/20 13:53 DC 04/25/20 14:23 500 MCG Diltiazem HCl (Cardizem Iv Push) 20 mg 1X ONCE 04/22/20 08:30 04/22/20 08:33 DC 04/22/20 09:21 20 MG Diltiazem HCl 125 mg/Sodium Chloride 125 ml @ 5 mls/hr CONT PRN 04/22/20 08:45 04/23/20 15:41 DC 04/23/20 01:56 15 MLS/HR Dopamine HCl/ Dextrose 250 ml @ As Directed STK-MED ONCE 04/24/20 11:47 04/24/20 11:47 DC Doxycycline Hyclate (Vibra-Tab) 100 mg BID 04/28/20 12:00 04/29/20 21:19 100 MG Enoxaparin Sodium (Lovenox 40mg Syringe) 40 mg Q24H 04/22/20 17:15 UNV Enoxaparin Sodium (Lovenox Per Pharmacy Treatment Dosing) 1 each PRN DAILY PRN 04/22/20 17:30 UNV Furosemide (Lasix) 60 mg 1X ONCE 04/22/20 08:45 04/22/20 08:46 DC 04/22/20 09:25 60 MG Gabapentin (Neurontin) 100 mg TID 04/25/20 10:00 04/29/20 21:19 100 MG Guaifenesin/ Codeine Phosphate (Robitussin Ac) 10 ml PRN Q6HRS PRN 04/22/20 08:45 04/29/20 13:30 10 ML Heparin Sodium (Porcine) (Heparin Sodium) 1,600 unit PRN Q6HRS PRN 04/23/20 11:00 04/24/20 13:33 DC 04/24/20 02:18 1,600 UNIT Heparin Sodium/ Dextrose 250 ml @ 20 mls/hr CONT PRN 04/23/20 11:00 04/24/20 13:33 DC 04/23/20 23:59 16.976 MLS/HR Info (Anti-Coagulation Monitoring By Pharmacy) 1 each PRN DAILY PRN 04/26/20 08:30 04/30/20 08:01 1 EACH Info (CONTRAST GIVEN -- Rx MONITORING) 1 each PRN DAILY PRN 04/24/20 10:30 04/26/20 10:29 DC Info (PHARMACY MONITORING -- do not chart) 1 each PRN DAILY PRN 04/27/20 16:45 Insulin Glargine (Lantus Syringe) 10 unit QHS 04/29/20 21:00 04/29/20 21:19 10 UNIT Insulin Human Lispro (HumaLOG) 0-7 UNITS TIDWMEALS 04/22/20 18:00 04/29/20 18:15 245 UNITS Iohexol (Omnipaque 350 Mg/ml) 100 ml 1X ONCE 04/24/20 10:30 04/24/20 10:31 DC 04/24/20 10:54 100 ML Isosorbide Mononitrate (Imdur) 60 mg DAILY 04/23/20 09:00 04/25/20 13:50 DC 04/25/20 12:26 60 MG Labetalol HCl (Trandate) 200 mg BID 04/22/20 21:00 04/25/20 10:30 DC 04/24/20 08:57 200 MG Lactobacillus Rhamnosus (Culturelle) 1 cap BID 04/23/20 21:00 04/29/20 21:19 1 CAP Losartan Potassium (Cozaar) 100 mg DAILY 04/23/20 09:00 04/25/20 13:50 DC 04/24/20 08:55 100 MG Magnesium Sulfate 50 ml @ 25 mls/hr PRN DAILY PRN 04/26/20 11:00 Metoprolol Tartrate (Lopressor) 50 mg BID 04/28/20 21:00 04/29/20 21:19 50 MG Metronidazole 100 ml @ 100 mls/hr 1X ONCE 04/22/20 10:45 04/22/20 10:53 DC Morphine Sulfate (Morphine Sulfate) 2 mg PRN Q2HR PRN 04/22/20 11:30 04/23/20 11:29 DC 04/22/20 22:03 2 MG Nitroglycerin (Nitro-Bid Oint) 1.5 inch 1X ONCE 04/22/20 08:30 04/22/20 08:33 DC 04/22/20 09:35 1 INCH Nitroglycerin/ Dextrose 250 ml @ 0 mls/hr 1X ONCE 04/22/20 08:30 04/22/20 08:39 DC Norepinephrine Bitartrate 8 mg/ Dextrose 258 ml @ 20.705 mls/ hr CONT PRN 04/24/20 13:30 04/25/20 15:43 DC Ondansetron HCl (Zofran) 8 mg STK-MED ONCE 04/23/20 18:00 04/24/20 08:20 DC Prochlorperazine Edisylate (Compazine) 5 mg PRN Q6HRS PRN 04/24/20 14:45 04/30/20 06:03 5 MG Remdesivir 100 mg/ Sodium Chloride 230 ml @ 460 mls/hr Q24H 04/24/20 11:00 04/27/20 11:29 DC 04/27/20 13:07 460 MLS/HR Remdesivir 200 mg/ Sodium Chloride 210 ml @ 210 mls/hr 1X ONCE 04/23/20 11:00 04/23/20 11:59 DC 04/23/20 14:03 210 MLS/HR Sevelamer Carbonate (Renvela) 2,400 mg TIDWMEALS 04/26/20 11:00 04/29/20 18:13 2,400 MG Sodium Bicarbonate (Sodium Bicarbonate) 650 mg TID 04/22/20 21:00 04/28/20 14:51 DC 04/28/20 14:02 650 MG Sodium Chloride 1,000 ml @ 400 mls/hr Q2H30M PRN 04/27/20 16:45 04/28/20 04:44 DC Vancomycin HCl (Vanco Per Pharmacy) 1 each PRN DAILY PRN 04/23/20 17:00 04/28/20 11:12 DC 04/26/20 08:31 1 EACH Vancomycin HCl (Vancomycin Random Level) 1 each 1X ONCE 04/23/20 06:00 04/23/20 06:01 DC 04/23/20 06:00 1 EACH Vancomycin HCl 500 mg/Sodium Chloride 100 ml @ 100 mls/hr QTUTHSA 04/23/20 16:00 04/28/20 11:10 DC 04/27/20 14:49 100 MLS/HR Vancomycin HCl 2 gm/Sodium Chloride 500 ml @ 250 mls/hr 1X ONCE 04/22/20 11:00 04/22/20 12:59 DC 04/22/20 12:35 250 MLS/HR Vitamin B Complex/ Vitamin C (Amaya-Shabana) 1 tab DAILY 04/23/20 09:00 04/29/20 08:25 1 TAB Lab Laboratory Tests Test 04/29/20 10:27 04/29/20 17:00 04/29/20 21:12 04/30/20 07:19 Glucose (Fingerstick) 203 mg/dL (70-99) 245 mg/dL (70-99) 247 mg/dL (70-99) Sodium Level 135 mmol/L (136-145) Potassium Level 5.8 mmol/L (3.5-5.1) Chloride Level 92 mmol/L (98-107) Carbon Dioxide Level 24 mmol/L (21-32) Anion Gap 19 (6-14) Blood Urea Nitrogen 123 mg/dL (7-20) Creatinine 6.7 mg/dL (0.6-1.0) Estimated GFR (Cockcroft-Gault) 6.4 Glucose Level 295 mg/dL (70-99) Calcium Level 9.5 mg/dL (8.5-10.1) Phosphorus Level 9.3 mg/dL (2.6-4.7) Magnesium Level 3.1 mg/dL (1.8-2.4) Albumin 2.9 g/dL (3.4-5.0) Test 04/30/20 07:35 Glucose (Fingerstick) 296 mg/dL (70-99) Results All relevant outside records, renal labs, imaging studies, telemetry/EKG's were reviewed. Justicifation of Admission Dx: Justifications for Admission: Justification of Admission Dx: Yes HIMANSHU MCGOVERN MD Apr 30, 2020 10:01
--- NOTE | 2020-04-30 10:36 | PDOC ---
PULMONARY PROGRESS NOTES DATE: 04/30/20 TIME: 10:33 Subjective on 6 liters N/C No SOA or increased cough up to chair today, feeling better No other concerns overnight from nursing Vitals Vital Signs Date Time Temp Pulse Resp B/P (MAP) Pulse Ox O2 Delivery O2 Flow Rate FiO2 04/30/20 08:01 Nasal Cannula 6.0 04/30/20 07:00 97.6 95 24 151/83 (105) 95 97.6 ROS: No Nausea, No Chest Pain, No Abdominal Pain, No Increase Cough General: Alert Lungs: Clear Cardiovascular: S1, S2 Abdomen: Soft Neuro Exam: Alert Extremities: No Edema Skin: Warm Labs Laboratory Tests Test 04/28/20 12:14 04/28/20 17:07 04/28/20 21:15 04/29/20 07:36 Glucose (Fingerstick) 330 mg/dL (70-99) 325 mg/dL (70-99) 304 mg/dL (70-99) 275 mg/dL (70-99) Test 04/29/20 07:40 04/29/20 07:45 04/29/20 10:27 04/29/20 17:00 Sodium Level 136 mmol/L (136-145) Potassium Level 5.2 mmol/L (3.5-5.1) Chloride Level 94 mmol/L (98-107) Carbon Dioxide Level 28 mmol/L (21-32) Anion Gap 14 (6-14) Blood Urea Nitrogen 90 mg/dL (7-20) Creatinine 5.9 mg/dL (0.6-1.0) Estimated GFR (Cockcroft-Gault) 7.4 Glucose Level 253 mg/dL (70-99) Calcium Level 10.0 mg/dL (8.5-10.1) Phosphorus Level 8.2 mg/dL (2.6-4.7) Albumin 3.0 g/dL (3.4-5.0) Magnesium Level 2.9 mg/dL (1.8-2.4) Glucose (Fingerstick) 203 mg/dL (70-99) 245 mg/dL (70-99) Test 04/29/20 21:12 04/30/20 07:19 04/30/20 07:35 Glucose (Fingerstick) 247 mg/dL (70-99) 296 mg/dL (70-99) Sodium Level 135 mmol/L (136-145) Potassium Level 5.8 mmol/L (3.5-5.1) Chloride Level 92 mmol/L (98-107) Carbon Dioxide Level 24 mmol/L (21-32) Anion Gap 19 (6-14) Blood Urea Nitrogen 123 mg/dL (7-20) Creatinine 6.7 mg/dL (0.6-1.0) Estimated GFR (Cockcroft-Gault) 6.4 Glucose Level 295 mg/dL (70-99) Calcium Level 9.5 mg/dL (8.5-10.1) Phosphorus Level 9.3 mg/dL (2.6-4.7) Magnesium Level 3.1 mg/dL (1.8-2.4) Albumin 2.9 g/dL (3.4-5.0) Laboratory Tests Test 04/29/20 17:00 04/29/20 21:12 04/30/20 07:19 04/30/20 07:35 Glucose (Fingerstick) 245 mg/dL (70-99) 247 mg/dL (70-99) 296 mg/dL (70-99) Sodium Level 135 mmol/L (136-145) Potassium Level 5.8 mmol/L (3.5-5.1) Chloride Level 92 mmol/L (98-107) Carbon Dioxide Level 24 mmol/L (21-32) Anion Gap 19 (6-14) Blood Urea Nitrogen 123 mg/dL (7-20) Creatinine 6.7 mg/dL (0.6-1.0) Estimated GFR (Cockcroft-Gault) 6.4 Glucose Level 295 mg/dL (70-99) Calcium Level 9.5 mg/dL (8.5-10.1) Phosphorus Level 9.3 mg/dL (2.6-4.7) Magnesium Level 3.1 mg/dL (1.8-2.4) Albumin 2.9 g/dL (3.4-5.0) Medications Active Scripts Medications Dose Route/Sig Max Daily Dose Days Date Category Soliqua 100 Unit-33 Mcg/ml Pen (Insulin Glargine/Lixisenatide) 3 Ml Insuln.pen 3 Ml SQ PRN PRN 02/14/20 Reported Lidocaine-Prilocaine Cream (Lidocaine/Prilocaine) 30 Gm Cream..g. 30 Gm TP PRN PRN 02/14/20 Reported Nephro-Shabana Tablet (Folic Acid/Vitamin B Comp W-C) 0.8 Mg Tablet 1 Tab PO DAILY 02/14/20 Reported Sodium Bicarbonate 650 Mg Tablet 650 Mg PO TID 30 08/09/19 Rx Renvela (Sevelamer Carbonate) 800 Mg Tablet 800 Mg PO TIDWMEALS 30 08/09/19 Rx Aspirin Ec (Aspirin) 81 Mg Tablet.dr 81 Mg PO DAILYWBKFT 30 08/09/19 Rx Cozaar (Losartan Potassium) 50 Mg Tablet 100 Mg PO DAILY 30 08/09/19 Rx Labetalol Hcl 200 Mg Tablet 200 Mg PO BID 30 08/09/19 Rx Atorvastatin Calcium 40 Mg Tablet 1 Tab PO QHS 03/05/19 Reported Isosorbide Mononitrate Er (Isosorbide Mononitrate) 60 Mg Tab.er.24h 1 Tab PO DAILY 03/12/17 Reported Comments CXR 04/26/20 IMPRESSION: 1. Progression of bilateral perihilar and basilar opacities. 2. Moderate right pleural effusion. CTA chest IMPRESSION: 1. No evidence of pulmonary thromboembolic disease. 2. Diffuse bilateral groundglass opacities, likely multifocal infection or edema. 3. Large right pleural effusion with relaxation atelectasis of much of the right lower lobe. 4. Extensive coronary artery atherosclerotic disease. Impression . IMPRESSION: 1. Acute hypoxemic respiratory failure secondary to COVID-19 viral pneumonia. 2. COVID-19 viral pneumonia. 3. Possible bacterial pneumonia. 4. CTA neg for PE 5. Bilateral pulmonary infiltrates compatible with viral pneumonia, possible bacterial pneumonia. 6. Renal failure. 7. Diabetes. 8. Hypertension. Plan . PLAN: Continue current supplemental oxygen, now on 6 liters N/C tolerating well, wean oxygen as tolerated Follow chest x-ray as needed continue eliquis Completed Full course of remdesivir, Continue IV steroids with slow taper, will need full 10 day course, started 04/22-- stop on 05/02/20 Continue empiric antibiotics, currently doxy Follow nephrology recommendations in regards to hemodialysis Follow cardiology recommendations Physical therapy/Occupational Therapy Social work for NH planning: screening for rehab DVT/GI prophylaxis Discussed with WINTER STEVENS MD Apr 30, 2020 10:36
[2020-04-30 10:54] VITALS: BP 149/86
[2020-04-30] MEDS: ASPIRIN ENTERIC COATED 81 MG TABLET.DR. PO SCH (11:29)
[2020-04-30] MEDS: APIXABAN 5 MG TABLET. PO SCH ×2 (11:29→21:10)
[2020-04-30] MEDS: GABAPENTIN 100 MG CAPSULE. PO SCH ×3 (11:29→21:11)
[2020-04-30] MEDS: METOPROLOL TART IMMED RELEASE 50 MG TABLET. PO SCH ×2 (11:29→21:11)
[2020-04-30] MEDS: DOXYCYCLINE HYCLATE 100 MG TABLET PO SCH ×2 (11:30→21:11)
[2020-04-30] MEDS: LACTOBACILLUS RHAMNOSUS GG 1 CAPSULE. PO SCH ×2 (11:32→21:11)
[2020-04-30] MEDS: FOLIC/VIT B COMP W-C (RENAL) TABLET. PO SCH (11:32)
--- NOTE | 2020-04-30 13:14 | NUR ---
SS following up with discharge planning. SS reviewed pt chart and discussed with pt RN. Pt is currently requiring oxygen at four liters nasal canula. COVID19 positive. PT/OT recommended inpatient rehabilitation. Dr. Colon met with pt and discussed and pt and physician are requesting referral to [facility], ; fax [phone]. SS phoned and faxed discharge instructions and referral to [facility]. Pt accepted. Per RN, pt is having dialysis at 1400 and would be ready for discharge at 1730. [facility] notified. SS will continue to follow for discharge planning.
[2020-04-30] MEDS ORDERED: DIALYSIS PATIENT. MC PRN ×2 (14:00)
[2020-04-30] MEDS ORDERED: ALBUMIN HUMAN 25% 200 ML IV PRN (14:00)
[2020-04-30] MEDS ORDERED: IV NORMAL SALINE 1000ML BAG 1,000 ML IV PRN ×2 (14:00)
--- NOTE | 2020-04-30 14:52 | PDOC ---
CARDIO Progress Notes Date and Time Date of Service 04/30/19 Time of Evaluation 1210 Subjective Subjective: No Chest Pain, No Palpitations, Other (not more SOA. on NC. feels tired ) Vitals Vitals Vital Signs Date Time Temp Pulse Resp B/P (MAP) Pulse Ox O2 Delivery O2 Flow Rate FiO2 04/30/20 12:11 94 4.0 04/30/20 11:29 90 149/86 04/30/20 10:54 97.7 22 Nasal Cannula 97.7 Weight Weight [ ] Input and Output Intake and Output Intake and Output 04/30/20 07:00 Intake Total 1280 ml Output Total 0 ml Balance 1280 ml Intake Oral 1280 ml Output Urine Total 0 ml Laboratory Labs Laboratory Tests Test 04/29/20 17:00 04/29/20 21:12 04/30/20 07:19 04/30/20 07:35 Glucose (Fingerstick) 245 mg/dL (70-99) 247 mg/dL (70-99) 296 mg/dL (70-99) Sodium Level 135 mmol/L (136-145) Potassium Level 5.8 mmol/L (3.5-5.1) Chloride Level 92 mmol/L (98-107) Carbon Dioxide Level 24 mmol/L (21-32) Anion Gap 19 (6-14) Blood Urea Nitrogen 123 mg/dL (7-20) Creatinine 6.7 mg/dL (0.6-1.0) Estimated GFR (Cockcroft-Gault) 6.4 Glucose Level 295 mg/dL (70-99) Calcium Level 9.5 mg/dL (8.5-10.1) Phosphorus Level 9.3 mg/dL (2.6-4.7) Magnesium Level 3.1 mg/dL (1.8-2.4) Albumin 2.9 g/dL (3.4-5.0) Test 04/30/20 11:37 Glucose (Fingerstick) 293 mg/dL (70-99) Microbiology Micro Microbiology 04/22/20 Blood Culture - Final, Complete NO GROWTH AFTER 5 DAYS Physical Exam HEENT: Neck Supple W Full Motion Chest: Symmetric LUNGS: Other (on NC) Heart: irregularly irregular (AFIB, rate controlled ) Abdomen: Other (obese ) Extremities: Other (trace bilateral LE edema ) Neurology: alert, oriented, follow commands, other (appears fatigued ) Assessment Assessment 1. Acute respiratory failure with COVID PNA. Remdesivir, Decadron initiated. + nearly 3 weeks ago. CTA negative for PE 2. Acute on chronic diastolic CHF; Echo 08/13 with preserved LV systolic function. 3. ESRD on HD 4. Mild troponin elevation; highest 0.8. Most probable type II, demand ischemia. CP free. 5. CAD; recent cath with diffused LAD disease with fixed defect on MPI. No lesions needing intervention. 6. Leukocytosis, lactic acidosis 7. Accelerated HTN; controlled overall 8. PAFIB with RVR upon arrival; rate controlled. On Eliquis 9. Diabetes, II 10. Hyperlipidemia; statin 11. Morbid obesity 12. LE PAD: no claudications or wounds. 13. Thrombocytopenia; PLT 106 Recommendations Secondary prevention measures ASA, statin Continue metoprolol for rate control Eliquis for stroke prohphylaxis Fluid offloading via HD Consider outpatient ischemic evaluation Follow up with Dr. Lazo as scheduled Okay to discharge to [facility] rehab from a CV standpoint Justicifation of Admission Dx: Justifications for Admission: Justification of Admission Dx: Yes PAUL MARTIN APRN Apr 30, 2020 14:52
[2020-04-30 19:10] VITALS: BP 122/63
[2020-04-30 19:15] VITALS: BP 134/67
[2020-04-30] MEDS ORDERED: DARBEPOETIN ALFA 100 MCG/0.5 ML DISP.SYRIN. SQ SCH (21:00)
[2020-04-30] MEDS: ATORVASTATIN CALCIUM 40 MG TABLET. PO SCH (21:10)
[2020-04-30] MEDS: INSULIN GLARGINE SYRINGE. SQ SCH (21:12)
[2020-04-30 22:45] VITALS: BP 128/63
[2020-05-01 03:00] VITALS: BP 172/73
[2020-05-01 07:00] VITALS: BP 175/84
[2020-05-01] MEDS: FOLIC/VIT B COMP W-C (RENAL) TABLET. PO SCH (08:46)
[2020-05-01] MEDS: LACTOBACILLUS RHAMNOSUS GG 1 CAPSULE. PO SCH ×2 (08:46→21:34)
[2020-05-01] MEDS: SEVELAMER CARBONATE 800 MG TABLET. PO SCH ×3 (08:46→17:00)
[2020-05-01] MEDS: ASPIRIN ENTERIC COATED 81 MG TABLET.DR. PO SCH (08:47)
[2020-05-01] MEDS: METOPROLOL TART IMMED RELEASE 50 MG TABLET. PO SCH ×2 (08:47→21:34)
[2020-05-01] MEDS: DEXAMETHASONE 4 MG TABLET PO SCH (08:47)
[2020-05-01] MEDS: APIXABAN 5 MG TABLET. PO SCH ×2 (08:47→21:34)
[2020-05-01] MEDS: DOXYCYCLINE HYCLATE 100 MG TABLET PO SCH ×2 (08:47→21:34)
[2020-05-01] MEDS: GABAPENTIN 100 MG CAPSULE. PO SCH ×3 (08:47→21:34)
[2020-05-01] MEDS: INSULIN LISPRO 300 UNITS/3 ML VIAL. SQ SCH ×3 (08:48→17:07)
--- NOTE | 2020-05-01 09:00 | PDOC ---
PROGRESS NOTES Date of Service: DATE: 05/01/20 TIME: 09:00 Subjective Subjective feels ok Objective Objective Vital Signs Date Time Temp Pulse Resp B/P (MAP) Pulse Ox O2 Delivery O2 Flow Rate FiO2 05/01/20 08:47 80 175/84 05/01/20 07:00 97.4 19 100 Nasal Cannula 4.0 97.4 Intake and Output 05/01/20 07:00 Intake Total 960 ml Output Total 0 ml Balance 960 ml Intake Oral 960 ml Output Urine Total 0 ml # Bowel Movements 1 Physical Exam Abdomen: Soft Heart: Normal S2, Other (AFIB ) Extremities: Normal pulses, Other (trace bilateral LE edema ) General: Alert, Oriented X3, Cooperative, mild distress HEENT: Atraumatic, Mucous membr. moist/pink Lungs: Other (on BIPAP) MUSCULOSKELETAL: Osteoarthritic changes both hands Neuro: Normal speech, Sensation intact Psych/Mental Status: Mental status NL Skin: No significant lesion Diagnosis Problem List Problems Medical Problems: (1) Acute pulmonary edema Status: Acute (2) Acute respiratory failure with hypoxia Status: Acute (3) Atrial fibrillation with RVR Status: Acute (4) COVID-19 Status: Acute (5) NSTEMI (non-ST elevated myocardial infarction) Status: Acute (6) Septic shock Status: Acute Assessment Assessment Problems Medical Problems: (1) Acute pulmonary edema Status: Acute (2) Acute respiratory failure with hypoxia Status: Acute (3) Atrial fibrillation with RVR Status: Acute (4) COVID-19 Status: Acute (5) NSTEMI (non-ST elevated myocardial infarction) Status: Acute (6) Septic shock Status: Acute FINAL IMPRESSION: 1. Shortness of breath, combination of heart failure as well as Covid pneumonia. 2. Recent COVID infection. 3. Coronary artery disease. She has a distal LAD disease, had a cardiac catheterization 07/2019. 4. End-stage renal disease, on hemodialysis. 5. Insulin-dependent diabetes. 6. Diastolic heart failure. 7. Hyperlipidemia. PLAN:JUN today Dialysis yesterday wbc 11 , cr 4,5 cxr rt pleural effusion. 4 L oxygen SNU screen . on Eliquis po bid for a fib CTA -neg for PE completed remdisivr . DIalysis wednesday po dexamethasome completed IV antibiotics. zithromax+vanco+cefepime slight nicanor troponin demand ischemia spoke with Pulmonary+cardiology add gabapentin for leg pain for neuropathy Plan Plan of Care Problems Medical Problems: (1) Acute pulmonary edema Status: Acute (2) Acute respiratory failure with hypoxia Status: Acute (3) Atrial fibrillation with RVR Status: Acute (4) COVID-19 Status: Acute (5) NSTEMI (non-ST elevated myocardial infarction) Status: Acute (6) Septic shock Status: Acute Comment Review of Relevant I have reviewed the following items allen (where applicable) has been applied. Labs Laboratory Tests Test 04/30/20 11:37 04/30/20 18:34 04/30/20 21:10 05/01/20 07:44 Glucose (Fingerstick) 293 mg/dL (70-99) 231 mg/dL (70-99) 234 mg/dL (70-99) Magnesium Level 2.7 mg/dL (1.8-2.4) Test 05/01/20 08:07 Glucose (Fingerstick) 223 mg/dL (70-99) Microbiology 04/22/20 Blood Culture - Final, Complete NO GROWTH AFTER 5 DAYS Medications Current Medications Albumin Human 200 ml @ 200 mls/hr 1X PRN PRN IV Hypotension; Start 04/30/20 at 14:00; Stop 04/30/20 at 19:59; Status DC Darbepoetin Aman (ARANESP for DIALYSIS PTS) 100 mcg WEEKLYHS SQ Last administered on 04/30/20at 21:13; Start 04/30/20 at 21:00 Dexamethasone (Decadron) 4 mg DAILYWBKFT PO Last administered on 05/01/20at 08:47; Start 05/01/20 at 08:00 Info (PHARMACY MONITORING -- do not chart) 1 each PRN DAILY PRN MC SEE COMMENTS; Start 04/30/20 at 14:00; Stop 04/30/20 at 14:03; Status DC Info (PHARMACY MONITORING -- do not chart) 1 each PRN DAILY PRN MC SEE COMMENTS; Start 04/30/20 at 14:00 Sodium Chloride 1,000 ml @ 400 mls/hr Q2H30M PRN IV PATENCY; Start 04/30/20 at 14:00; Stop 05/01/20 at 01:59; Status DC Sodium Chloride 1,000 ml @ 1,000 mls/hr Q1H PRN IV hypotension; Start 04/30/20 at 14:00; Stop 04/30/20 at 19:59; Status DC Vitals/I & O Vital Sign - Last 24 Hours 04/30/20 04/30/20 04/30/20 04/30/20 10:54 11:29 12:11 19:10 Temp 97.7 97.5 97.7 97.5 Pulse 90 90 104 Resp 24 B/P (MAP) 149/86 (107) 149/86 122/63 (82) Pulse Ox 95 94 90 O2 Delivery Nasal Cannula Nasal Cannula O2 Flow Rate 6.0 4.0 4.0 04/30/20 04/30/20 04/30/20 04/30/20 19:15 20:00 21:11 22:45 Temp 97.4 97.5 97.4 97.5 Pulse 102 102 84 Resp 20 B/P (MAP) 134/67 (89) 134/67 128/63 (84) Pulse Ox 95 97 O2 Delivery Nasal Cannula Nasal Cannula Nasal Cannula O2 Flow Rate 5.0 7.0 6.0 05/01/20 05/01/20 05/01/20 03:00 07:00 08:47 Temp 97.5 97.4 97.5 97.4 Pulse 110 80 80 Resp 19 B/P (MAP) 172/73 (106) 175/84 (114) 175/84 Pulse Ox 94 100 O2 Delivery Nasal Cannula Nasal Cannula O2 Flow Rate 4.0 4.0 Intake and Output 04/30/20 04/30/20 05/01/20 15:00 23:00 07:00 Intake Total 840 ml 120 ml Output Total 0 ml Balance 840 ml 120 ml Justifications for Admission Other Justification YARELIS FONTENOT MD May 01, 2020 09:00
[2020-05-01 09:16] LABS: CALCIUM 9.5 mg/dL (8.5-10.1); CREATININE 5.8 mg/dL (0.6-1.0); GFR 7.6; POTASSIUM 5.4 mmol/L (3.5-5.1)
[2020-05-01 09:17] LABS: PHOSPHORUS 9.3 mg/dL (2.6-4.7)
--- NOTE | 2020-05-01 10:35 | PDOC ---
PULMONARY PROGRESS NOTES DATE: 05/01/20 TIME: 10:33 Subjective On 4 liters N/C,improvement in oxygenation No SOA or increased cough up to chair today, feeling better Planned to D/C to [facility] after HD No other concerns overnight from nursing Vitals Vital Signs Date Time Temp Pulse Resp B/P (MAP) Pulse Ox O2 Delivery O2 Flow Rate FiO2 05/01/20 08:47 80 175/84 05/01/20 08:00 Nasal Cannula 4.0 05/01/20 07:00 97.4 19 100 97.4 ROS: No Nausea, No Chest Pain, No Abdominal Pain, No Increase Cough General: Alert Lungs: Clear Cardiovascular: S1, S2 Abdomen: Soft Neuro Exam: Alert Extremities: Other (BLE +1 ) Skin: Warm Labs Laboratory Tests Test 04/29/20 17:00 04/29/20 21:12 04/30/20 07:19 04/30/20 07:35 Glucose (Fingerstick) 245 mg/dL (70-99) 247 mg/dL (70-99) 296 mg/dL (70-99) Sodium Level 135 mmol/L (136-145) Potassium Level 5.8 mmol/L (3.5-5.1) Chloride Level 92 mmol/L (98-107) Carbon Dioxide Level 24 mmol/L (21-32) Anion Gap 19 (6-14) Blood Urea Nitrogen 123 mg/dL (7-20) Creatinine 6.7 mg/dL (0.6-1.0) Estimated GFR (Cockcroft-Gault) 6.4 Glucose Level 295 mg/dL (70-99) Calcium Level 9.5 mg/dL (8.5-10.1) Phosphorus Level 9.3 mg/dL (2.6-4.7) Magnesium Level 3.1 mg/dL (1.8-2.4) Albumin 2.9 g/dL (3.4-5.0) Test 04/30/20 11:37 04/30/20 18:34 04/30/20 21:10 05/01/20 07:44 Glucose (Fingerstick) 293 mg/dL (70-99) 231 mg/dL (70-99) 234 mg/dL (70-99) Sodium Level 134 mmol/L (136-145) Potassium Level 5.4 mmol/L (3.5-5.1) Chloride Level 92 mmol/L (98-107) Carbon Dioxide Level 30 mmol/L (21-32) Anion Gap 12 (6-14) Blood Urea Nitrogen 90 mg/dL (7-20) Creatinine 5.8 mg/dL (0.6-1.0) Estimated GFR (Cockcroft-Gault) 7.6 Glucose Level 191 mg/dL (70-99) Calcium Level 9.5 mg/dL (8.5-10.1) Phosphorus Level 9.3 mg/dL (2.6-4.7) Magnesium Level 2.7 mg/dL (1.8-2.4) Albumin 3.0 g/dL (3.4-5.0) Test 05/01/20 08:07 Glucose (Fingerstick) 223 mg/dL (70-99) Laboratory Tests Test 04/30/20 11:37 04/30/20 18:34 04/30/20 21:10 05/01/20 07:44 Glucose (Fingerstick) 293 mg/dL (70-99) 231 mg/dL (70-99) 234 mg/dL (70-99) Sodium Level 134 mmol/L (136-145) Potassium Level 5.4 mmol/L (3.5-5.1) Chloride Level 92 mmol/L (98-107) Carbon Dioxide Level 30 mmol/L (21-32) Anion Gap 12 (6-14) Blood Urea Nitrogen 90 mg/dL (7-20) Creatinine 5.8 mg/dL (0.6-1.0) Estimated GFR (Cockcroft-Gault) 7.6 Glucose Level 191 mg/dL (70-99) Calcium Level 9.5 mg/dL (8.5-10.1) Phosphorus Level 9.3 mg/dL (2.6-4.7) Magnesium Level 2.7 mg/dL (1.8-2.4) Albumin 3.0 g/dL (3.4-5.0) Test 05/01/20 08:07 Glucose (Fingerstick) 223 mg/dL (70-99) Medications Active Scripts Medications Dose Route/Sig Max Daily Dose Days Date Category Soliqua 100 Unit-33 Mcg/ml Pen (Insulin Glargine/Lixisenatide) 3 Ml Insuln.pen 3 Ml SQ PRN PRN 02/14/20 Reported Lidocaine-Prilocaine Cream (Lidocaine/Prilocaine) 30 Gm Cream..g. 30 Gm TP PRN PRN 02/14/20 Reported Nephro-Shabana Tablet (Folic Acid/Vitamin B Comp W-C) 0.8 Mg Tablet 1 Tab PO DAILY 02/14/20 Reported Sodium Bicarbonate 650 Mg Tablet 650 Mg PO TID 30 08/09/19 Rx Renvela (Sevelamer Carbonate) 800 Mg Tablet 800 Mg PO TIDWMEALS 30 08/09/19 Rx Aspirin Ec (Aspirin) 81 Mg Tablet.dr 81 Mg PO DAILYWBKFT 30 08/09/19 Rx Cozaar (Losartan Potassium) 50 Mg Tablet 100 Mg PO DAILY 30 08/09/19 Rx Labetalol Hcl 200 Mg Tablet 200 Mg PO BID 30 08/09/19 Rx Atorvastatin Calcium 40 Mg Tablet 1 Tab PO QHS 03/05/19 Reported Isosorbide Mononitrate Er (Isosorbide Mononitrate) 60 Mg Tab.er.24h 1 Tab PO DAILY 03/12/17 Reported Comments CXR 04/26/20 IMPRESSION: 1. Progression of bilateral perihilar and basilar opacities. 2. Moderate right pleural effusion. CTA chest IMPRESSION: 1. No evidence of pulmonary thromboembolic disease. 2. Diffuse bilateral groundglass opacities, likely multifocal infection or edema. 3. Large right pleural effusion with relaxation atelectasis of much of the right lower lobe. 4. Extensive coronary artery atherosclerotic disease. Impression . IMPRESSION: 1. Acute hypoxemic respiratory failure secondary to COVID-19 viral pneumonia. 2. COVID-19 viral pneumonia. 3. Possible bacterial pneumonia. 4. CTA neg for PE 5. Bilateral pulmonary infiltrates compatible with viral pneumonia, possible bacterial pneumonia. 6. Renal failure. 7. Diabetes. 8. Hypertension. Plan . PLAN: Continue current supplemental oxygen, now on 6 liters N/C tolerating well, wean oxygen as tolerated continue eliquis Completed Full course of remdesivir, Continue IV steroids with slow taper, will need full 10 day course, started 04/22-- stop on 05/02/20 Continue empiric antibiotics, currently doxy Follow nephrology recommendations in regards to hemodialysis Follow cardiology recommendations Physical therapy/Occupational Therapy DVT/GI prophylaxis Discussed with RN Planned to discharge to [facility] after HD today, ok to D/C from our standpoint WINTER JOY MD May 01, 2020 10:35
[2020-05-01 11:00] VITALS: BP 141/64
--- NOTE | 2020-05-01 12:03 | PDOC ---
PAUL MARTIN VICE PRESIDENT FOR INSTRUCTION 05/01/20 1203: CARDIO Progress Notes Date and Time Date of Service 05/01/19 Time of Evaluation 1200 Subjective Subjective: No Chest Pain, No Palpitations, Other (feeling better today. ) Vitals Vitals Vital Signs Date Time Temp Pulse Resp B/P (MAP) Pulse Ox O2 Delivery O2 Flow Rate FiO2 05/01/20 08:47 80 175/84 05/01/20 08:00 Nasal Cannula 4.0 05/01/20 07:00 97.4 19 100 97.4 Weight Weight [ ] Input and Output Intake and Output Intake and Output 05/01/20 07:00 Intake Total 960 ml Output Total 0 ml Balance 960 ml Intake Oral 960 ml Output Urine Total 0 ml # Bowel Movements 1 Laboratory Labs Laboratory Tests Test 04/30/20 18:34 04/30/20 21:10 05/01/20 07:44 05/01/20 08:07 Glucose (Fingerstick) 231 mg/dL (70-99) 234 mg/dL (70-99) 223 mg/dL (70-99) Sodium Level 134 mmol/L (136-145) Potassium Level 5.4 mmol/L (3.5-5.1) Chloride Level 92 mmol/L (98-107) Carbon Dioxide Level 30 mmol/L (21-32) Anion Gap 12 (6-14) Blood Urea Nitrogen 90 mg/dL (7-20) Creatinine 5.8 mg/dL (0.6-1.0) Estimated GFR (Cockcroft-Gault) 7.6 Glucose Level 191 mg/dL (70-99) Calcium Level 9.5 mg/dL (8.5-10.1) Phosphorus Level 9.3 mg/dL (2.6-4.7) Magnesium Level 2.7 mg/dL (1.8-2.4) Albumin 3.0 g/dL (3.4-5.0) Microbiology Micro Microbiology 04/22/20 Blood Culture - Final, Complete NO GROWTH AFTER 5 DAYS Physical Exam HEENT: Neck Supple W Full Motion Chest: Symmetric LUNGS: Other (on NC) Heart: irregularly irregular (AFIB, rate controlled ) Abdomen: Other (obese ) Extremities: Other (trace bilateral LE edema ) Neurology: alert, oriented, follow commands, other (appears fatigued ) Assessment Assessment 1. Acute respiratory failure with COVID PNA. Remdesivir, Decadron initiated. + nearly 3 weeks ago. CTA negative for PE 2. Acute on chronic diastolic CHF; Echo 08/13 with preserved LV systolic function. 3. ESRD on HD 4. Mild troponin elevation; highest 0.8. Most probable type II, demand ischemia. CP free. 5. CAD; recent cath with diffused LAD disease with fixed defect on MPI. No lesions needing intervention. 6. Leukocytosis, lactic acidosis 7. Accelerated HTN; controlled overall 8. PAFIB with RVR upon arrival; rate controlled. On Eliquis 9. Diabetes, II 10. Hyperlipidemia; statin 11. Morbid obesity 12. LE PAD: no claudications or wounds. 13. Thrombocytopenia; PLT 106 Recommendations Secondary prevention measures ASA, statin Metoprolol for rate control Eliquis for stroke prohphylaxis Fluid offloading via HD Consider outpatient ischemic evaluation Follow up with Dr. Lopez as scheduled Okay to discharge to [facility] rehab from a CV standpoint Justicifation of Admission Dx: Justifications for Admission: Justification of Admission Dx: Yes FATOU LOPEZ MD 05/01/202034: CARDIO Progress Notes Assessment Assessment Patient seen and examined I agree with our nurse practitioners assessment and plan as above. Acute respiratory failure with COVID PNA. Remdesivir, Decadron initiated. + nearly 3 weeks ago. CTA negative for PE. Continue as per pulmonary and ID. Acute on chronic diastolic CHF; Echo 08/13 with preserved LV systolic function. ESRD on HD CAD; recent cath with diffused LAD disease with fixed defect on MPI. No lesions needing intervention. Accelerated HTN; controlled overall PAFIB with RVR upon arrival; rate controlled. On Eliquis and beta-blockers Hyperlipidemia; statin LE PAD: no claudications or wounds. Thrombocytopenia; PLT 106 PAUL MARTIN APRN May 01, 2020 12:03 FATOU LOPEZ MD May 01, 2020 20:35
--- NOTE | 2020-05-01 13:11 | PDOC ---
DATE OF SERVICE DATE: 05/01/20 TIME: 9:45 SUBJECTIVE ROS stable , feels better OBJECTIVE Vital Signs Vital Signs Date Time Temp Pulse Resp B/P (MAP) Pulse Ox O2 Delivery O2 Flow Rate FiO2 05/01/20 11:00 97.5 81 18 141/64 (89) 100 Nasal Cannula 4.0 97.5 I & 0 Intake and Output 05/01/20 07:00 Intake Total 960 ml Output Total 0 ml Balance 960 ml Intake Oral 960 ml Output Urine Total 0 ml # Bowel Movements 1 PHYSICAL EXAM Physical Exam GEN: NAD HEEN OM moist, On O2 NC NECK: supple CVS: S1S2 RESP: Non labored GI: Soft, NT : No CVA tenderness, No Suprapubic Tenderness NEURO Ax3, grossly normal SKIN No Rash EXT mild LE edema DIAGNOSIS/ASSESSMENT Assessment & Plan ESRD- on HD TTS since July 2019 No indication of HD today HyperKalemia- Mild Ac Resp Failure- stable , Cxr 04/27 - . Stable moderate right pleural effusion tracking within the pleural fissures.2. Stable diffuse mixed interstitial and alveolar infiltrate with suspected partial right lower lobe consolidation. CoVID 19 diagnosed recently- Remdesivir, Decadron . CTA negative for PE COMMENT/RELEVANT DATA Meds Current Medications Medications (Trade) Dose Ordered Sig/Joshua Start Time Stop Time Status Last Admin Dose Admin Albumin Human 200 ml @ 200 mls/hr 1X PRN PRN 04/30/20 14:00 04/30/20 19:59 DC Apixaban (Eliquis) 5 mg BID 04/24/20 21:00 05/01/20 08:47 5 MG Aspirin (Ecotrin) 81 mg DAILYWBKFT 04/23/20 08:00 05/01/20 08:47 81 MG Atorvastatin Calcium (Lipitor) 40 mg QHS 04/22/20 21:00 04/30/20 21:10 40 MG Azithromycin 250 ml @ 250 mls/hr 1X ONCE 04/22/20 11:00 04/22/20 11:59 DC 04/22/20 17:05 250 MLS/HR Azithromycin 250 mg/Sodium Chloride 250 ml @ 250 mls/hr Q24H 04/23/20 17:00 04/26/20 17:00 DC 04/26/20 21:46 250 MLS/HR Aztreonam (Azactam) 2 gm 1X ONCE 04/22/20 10:45 04/22/20 10:53 DC Cefepime HCl (Maxipime) 1 gm Q24H 04/23/20 09:00 04/28/20 11:10 DC 04/28/20 08:12 1 GM Darbepoetin Aman (ARANESP for DIALYSIS PTS) 100 mcg WEEKLYHS 04/30/20 21:00 04/30/20 21:13 100 MCG Dexamethasone (Decadron) 4 mg DAILYWBKFT 05/01/20 08:00 05/01/20 08:47 4 MG Dexamethasone Sodium Phosphate (Decadron) 10 mg 1X ONCE 04/22/20 17:30 04/22/20 17:31 DC 04/22/20 17:34 10 MG Dextrose (Dextrose 50%-Water Syringe) 12.5 gm PRN Q15MIN PRN 04/22/20 17:15 Digoxin (Lanoxin) 500 mcg 1X ONCE 04/25/20 13:45 04/25/20 13:53 DC 04/25/20 14:23 500 MCG Diltiazem HCl (Cardizem Iv Push) 20 mg 1X ONCE 04/22/20 08:30 04/22/20 08:33 DC 04/22/20 09:21 20 MG Diltiazem HCl 125 mg/Sodium Chloride 125 ml @ 5 mls/hr CONT PRN 04/22/20 08:45 04/23/20 15:41 DC 04/23/20 01:56 15 MLS/HR Dopamine HCl/ Dextrose 250 ml @ As Directed STK-MED ONCE 04/24/20 11:47 04/24/20 11:47 DC Doxycycline Hyclate (Vibra-Tab) 100 mg BID 04/28/20 12:00 05/01/20 08:47 100 MG Enoxaparin Sodium (Lovenox 40mg Syringe) 40 mg Q24H 04/22/20 17:15 UNV Enoxaparin Sodium (Lovenox Per Pharmacy Treatment Dosing) 1 each PRN DAILY PRN 04/22/20 17:30 UNV Furosemide (Lasix) 60 mg 1X ONCE 04/22/20 08:45 04/22/20 08:46 DC 04/22/20 09:25 60 MG Gabapentin (Neurontin) 100 mg TID 04/25/20 10:00 05/01/20 08:47 100 MG Guaifenesin/ Codeine Phosphate (Robitussin Ac) 10 ml PRN Q6HRS PRN 04/22/20 08:45 04/29/20 13:30 10 ML Heparin Sodium (Porcine) (Heparin Sodium) 1,600 unit PRN Q6HRS PRN 04/23/20 11:00 04/24/20 13:33 DC 04/24/20 02:18 1,600 UNIT Heparin Sodium/ Dextrose 250 ml @ 20 mls/hr CONT PRN 04/23/20 11:00 04/24/20 13:33 DC 04/23/20 23:59 16.976 MLS/HR Info (Anti-Coagulation Monitoring By Pharmacy) 1 each PRN DAILY PRN 04/26/20 08:30 04/30/20 08:01 1 EACH Info (CONTRAST GIVEN -- Rx MONITORING) 1 each PRN DAILY PRN 04/24/20 10:30 04/26/20 10:29 DC Info (PHARMACY MONITORING -- do not chart) 1 each PRN DAILY PRN 04/30/20 14:00 Insulin Glargine (Lantus Syringe) 10 unit QHS 04/29/20 21:00 04/30/20 21:12 10 UNIT Insulin Human Lispro (HumaLOG) 0-7 UNITS TIDWMEALS 04/22/20 18:00 05/01/20 12:29 3 UNITS Iohexol (Omnipaque 350 Mg/ml) 100 ml 1X ONCE 04/24/20 10:30 04/24/20 10:31 DC 04/24/20 10:54 100 ML Isosorbide Mononitrate (Imdur) 60 mg DAILY 04/23/20 09:00 04/25/20 13:50 DC 04/25/20 12:26 60 MG Labetalol HCl (Trandate) 200 mg BID 04/22/20 21:00 04/25/20 10:30 DC 04/24/20 08:57 200 MG Lactobacillus Rhamnosus (Culturelle) 1 cap BID 04/23/20 21:00 05/01/20 08:46 1 CAP Losartan Potassium (Cozaar) 100 mg DAILY 04/23/20 09:00 04/25/20 13:50 DC 04/24/20 08:55 100 MG Magnesium Sulfate 50 ml @ 25 mls/hr PRN DAILY PRN 04/26/20 11:00 Metoprolol Tartrate (Lopressor) 50 mg BID 04/28/20 21:00 05/01/20 08:47 50 MG Metronidazole 100 ml @ 100 mls/hr 1X ONCE 04/22/20 10:45 04/22/20 10:53 DC Morphine Sulfate (Morphine Sulfate) 2 mg PRN Q2HR PRN 04/22/20 11:30 04/23/20 11:29 DC 04/22/20 22:03 2 MG Nitroglycerin (Nitro-Bid Oint) 1.5 inch 1X ONCE 04/22/20 08:30 04/22/20 08:33 DC 04/22/20 09:35 1 INCH Nitroglycerin/ Dextrose 250 ml @ 0 mls/hr 1X ONCE 04/22/20 08:30 04/22/20 08:39 DC Norepinephrine Bitartrate 8 mg/ Dextrose 258 ml @ 20.705 mls/ hr CONT PRN 04/24/20 13:30 04/25/20 15:43 DC Ondansetron HCl (Zofran) 8 mg STK-MED ONCE 04/23/20 18:00 04/24/20 08:20 DC Prochlorperazine Edisylate (Compazine) 5 mg PRN Q6HRS PRN 04/24/20 14:45 04/30/20 06:03 5 MG Remdesivir 100 mg/ Sodium Chloride 230 ml @ 460 mls/hr Q24H 04/24/20 11:00 04/27/20 11:29 DC 04/27/20 13:07 460 MLS/HR Remdesivir 200 mg/ Sodium Chloride 210 ml @ 210 mls/hr 1X ONCE 04/23/20 11:00 04/23/20 11:59 DC 04/23/20 14:03 210 MLS/HR Sevelamer Carbonate (Renvela) 2,400 mg TIDWMEALS 04/26/20 11:00 05/01/20 12:28 2,400 MG Sodium Bicarbonate (Sodium Bicarbonate) 650 mg TID 04/22/20 21:00 04/28/20 14:51 DC 04/28/20 14:02 650 MG Sodium Chloride 1,000 ml @ 400 mls/hr Q2H30M PRN 04/30/20 14:00 05/01/20 01:59 DC Vancomycin HCl (Vanco Per Pharmacy) 1 each PRN DAILY PRN 04/23/20 17:00 04/28/20 11:12 DC 04/26/20 08:31 1 EACH Vancomycin HCl (Vancomycin Random Level) 1 each 1X ONCE 04/23/20 06:00 04/23/20 06:01 DC 04/23/20 06:00 1 EACH Vancomycin HCl 500 mg/Sodium Chloride 100 ml @ 100 mls/hr QTUTHSA 04/23/20 16:00 04/28/20 11:10 DC 04/27/20 14:49 100 MLS/HR Vancomycin HCl 2 gm/Sodium Chloride 500 ml @ 250 mls/hr 1X ONCE 04/22/20 11:00 04/22/20 12:59 DC 04/22/20 12:35 250 MLS/HR Vitamin B Complex/ Vitamin C (Amaya-Shabana) 1 tab DAILY 04/23/20 09:00 05/01/20 08:46 1 TAB Lab Laboratory Tests Test 04/30/20 18:34 04/30/20 21:10 05/01/20 07:44 05/01/20 08:07 Glucose (Fingerstick) 231 mg/dL (70-99) 234 mg/dL (70-99) 223 mg/dL (70-99) Sodium Level 134 mmol/L (136-145) Potassium Level 5.4 mmol/L (3.5-5.1) Chloride Level 92 mmol/L (98-107) Carbon Dioxide Level 30 mmol/L (21-32) Anion Gap 12 (6-14) Blood Urea Nitrogen 90 mg/dL (7-20) Creatinine 5.8 mg/dL (0.6-1.0) Estimated GFR (Cockcroft-Gault) 7.6 Glucose Level 191 mg/dL (70-99) Calcium Level 9.5 mg/dL (8.5-10.1) Phosphorus Level 9.3 mg/dL (2.6-4.7) Magnesium Level 2.7 mg/dL (1.8-2.4) Albumin 3.0 g/dL (3.4-5.0) Test 05/01/20 11:50 Glucose (Fingerstick) 179 mg/dL (70-99) Results All relevant outside records, renal labs, imaging studies, telemetry/EKG's were reviewed. Justicifation of Admission Dx: Justifications for Admission: Justification of Admission Dx: Yes HIMANSHU MCGOVERN MD May 01, 2020 13:11
[2020-05-01 14:57] VITALS: BP 142/73
--- NOTE | 2020-05-01 15:23 | NUR ---
SS following up with discharge planning. SS reviewed pt chart and discussed with pt RN. Pt is currently requiring oxygen. Pt accepted at [facility], ; fax [phone], pending bed availability. COVID19 positive. SS received phone contact from [facility] stating that due to pt needing isolation and dialysis in the community bed will not be available until tomorrow. SS will continue to follow for discharge planning.
[2020-05-01 19:59] VITALS: BP 145/91
[2020-05-01] MEDS: ATORVASTATIN CALCIUM 40 MG TABLET. PO SCH (21:34)
[2020-05-01] MEDS: INSULIN GLARGINE SYRINGE. SQ SCH (21:35)
[2020-05-01 23:42] VITALS: BP 151/88
[2020-05-02 03:39] VITALS: BP 149/75
[2020-05-02 07:00] VITALS: BP 153/81
--- NOTE | 2020-05-02 08:04 | PDOC ---
PROGRESS NOTES Date of Service: DATE: 05/02/20 TIME: 08:04 Subjective Subjective feels good Objective Objective Vital Signs Date Time Temp Pulse Resp B/P (MAP) Pulse Ox O2 Delivery O2 Flow Rate FiO2 05/02/20 03:39 97.6 91 18 149/75 (99) 94 Nasal Cannula 4.0 97.6 Intake and Output 05/02/20 07:00 Intake Total 1200 ml Output Total 0 ml Balance 1200 ml Intake Oral 1200 ml Output Urine Total 0 ml # Bowel Movements 1 Physical Exam Abdomen: Soft Heart: Normal S2, Other (AFIB ) Extremities: Normal pulses, Other (trace bilateral LE edema ) General: Alert, Oriented X3, Cooperative, mild distress HEENT: Atraumatic, Mucous membr. moist/pink Lungs: Other (on BIPAP) MUSCULOSKELETAL: Osteoarthritic changes both hands Neuro: Normal speech, Sensation intact Psych/Mental Status: Mental status NL Skin: No significant lesion Diagnosis Problem List Problems Medical Problems: (1) Acute pulmonary edema Status: Acute (2) Acute respiratory failure with hypoxia Status: Acute (3) Atrial fibrillation with RVR Status: Acute (4) COVID-19 Status: Acute (5) NSTEMI (non-ST elevated myocardial infarction) Status: Acute (6) Septic shock Status: Acute Assessment Assessment Problems Medical Problems: (1) Acute pulmonary edema Status: Acute (2) Acute respiratory failure with hypoxia Status: Acute (3) Atrial fibrillation with RVR Status: Acute (4) COVID-19 Status: Acute (5) NSTEMI (non-ST elevated myocardial infarction) Status: Acute (6) Septic shock Status: Acute FINAL IMPRESSION: 1. Shortness of breath, combination of heart failure as well as Covid pneumonia. 2. Recent COVID infection. 3. Coronary artery disease. She has a distal LAD disease, had a cardiac catheterization 07/2019. 4. End-stage renal disease, on hemodialysis. 5. Insulin-dependent diabetes. 6. Diastolic heart failure. 7. Hyperlipidemia. PLAN: dialysis today. MAR today,hopefully they have bed today wbc 13 , cr 7,5,pot 5.9 cxr rt pleural effusion. 4 L oxygen SNU screen . on Eliquis po bid for a fib CTA -neg for PE completed remdisivr . DIalysis sat po dexamethasome completed IV antibiotics. zithromax+vanco+cefepime slight nicanor troponin demand ischemia spoke with Pulmonary+cardiology add gabapentin for leg pain for neuropathy Plan Plan of Care Problems Medical Problems: (1) Acute pulmonary edema Status: Acute (2) Acute respiratory failure with hypoxia Status: Acute (3) Atrial fibrillation with RVR Status: Acute (4) COVID-19 Status: Acute (5) NSTEMI (non-ST elevated myocardial infarction) Status: Acute (6) Septic shock Status: Acute Comment Review of Relevant I have reviewed the following items allen (where applicable) has been applied. Labs Laboratory Tests Test 05/01/20 08:07 05/01/20 11:50 05/01/20 16:37 05/01/20 20:31 Glucose (Fingerstick) 223 mg/dL (70-99) 179 mg/dL (70-99) 171 mg/dL (70-99) 164 mg/dL (70-99) Microbiology 04/22/20 Blood Culture - Final, Complete NO GROWTH AFTER 5 DAYS Vitals/I & O Vital Sign - Last 24 Hours 05/01/20 05/01/20 05/01/20 05/01/20 08:47 11:00 14:57 19:59 Temp 97.5 97.5 96.3 97.5 97.5 96.3 Pulse 80 81 73 82 Resp 18 19 16 B/P (MAP) 175/84 141/64 (89) 142/73 (96) 145/91 (109) Pulse Ox 100 100 90 O2 Delivery Nasal Cannula Nasal Cannula Nasal Cannula O2 Flow Rate 4.0 4.0 4.0 05/01/20 05/01/20 05/01/20 05/02/20 20:00 21:34 23:42 03:39 Temp 97.5 97.6 97.5 97.6 Pulse 73 92 91 Resp 16 18 B/P (MAP) 142/73 151/88 (109) 149/75 (99) Pulse Ox 91 94 O2 Delivery Nasal Cannula Nasal Cannula Nasal Cannula O2 Flow Rate 4.0 4.0 4.0 Intake and Output 05/01/20 05/01/20 05/02/20 15:00 23:00 07:00 Intake Total 650 ml 300 ml 250 ml Output Total 0 ml Balance 650 ml 300 ml 250 ml Justifications for Admission Other Justification YARELIS FONTENOT MD May 02, 2020 08:04
[2020-05-02 08:31] LABS: BASO % 0 % (0-3); EOS % 0 % (0-3); HEMATOCRIT 35.7 % (36.0-47.0); HEMOGLOBIN 11.4 g/dL (12.0-15.5); LYMPH # 0.8 x10^3/uL (1.0-4.8); LYMPH % 6 % (24-48); MEAN CORPUSCULAR HEMOGLOBIN 29 pg (25-35); MEAN CORPUSCULAR HGB CONC 32 g/dL (31-37); MEAN CORPUSCULAR VOLUME 90 fL (79-100); MONO # 0.6 x10^3/uL (0.0-1.1); MONO % 4 % (0-9); NEUT # 12.4 x10^3/uL (1.8-7.7); NEUT % 90 % (31-73); PLATELET COUNT 106 x10^3/uL (140-400); RED BLOOD COUNT 3.96 x10^6/uL (3.50-5.40); RED CELL DISTRIBUTION WIDTH 18.8 % (11.5-14.5); WHITE BLOOD COUNT 13.8 x10^3/uL (4.0-11.0)
[2020-05-02 08:38] LABS: CALCIUM 9.4 mg/dL (8.5-10.1); GFR 6.1; POTASSIUM 5.9 mmol/L (3.5-5.1)
[2020-05-02 08:40] LABS: PHOSPHORUS 9.4 mg/dL (2.6-4.7)
[2020-05-02] MEDS: LACTOBACILLUS RHAMNOSUS GG 1 CAPSULE. PO SCH ×2 (09:36→21:11)
[2020-05-02] MEDS: SEVELAMER CARBONATE 800 MG TABLET. PO SCH ×3 (09:36→17:00)
[2020-05-02] MEDS: DEXAMETHASONE 4 MG TABLET PO SCH (09:36)
[2020-05-02] MEDS: METOPROLOL TART IMMED RELEASE 50 MG TABLET. PO SCH ×2 (09:36→21:11)
[2020-05-02] MEDS: DOXYCYCLINE HYCLATE 100 MG TABLET PO SCH ×2 (09:36→21:11)
[2020-05-02] MEDS: ASPIRIN ENTERIC COATED 81 MG TABLET.DR. PO SCH (09:36)
[2020-05-02] MEDS: FOLIC/VIT B COMP W-C (RENAL) TABLET. PO SCH (09:36)
[2020-05-02] MEDS: GABAPENTIN 100 MG CAPSULE. PO SCH ×3 (09:39→21:12)
[2020-05-02] MEDS: APIXABAN 5 MG TABLET. PO SCH ×2 (09:40→21:11)
[2020-05-02] MEDS: INSULIN LISPRO 300 UNITS/3 ML VIAL. SQ SCH ×3 (09:41→18:19)
--- NOTE | 2020-05-02 10:52 | PDOC ---
DATE OF SERVICE DATE: 05/02/20 TIME: 10:50 SUBJECTIVE ROS stable OBJECTIVE Vital Signs Vital Signs Date Time Temp Pulse Resp B/P (MAP) Pulse Ox O2 Delivery O2 Flow Rate FiO2 05/02/20 09:36 96 153/81 05/02/20 08:00 Nasal Cannula 4.0 05/02/20 07:00 97.6 16 96 97.6 I & 0 Intake and Output 05/02/20 07:00 Intake Total 1200 ml Output Total 0 ml Balance 1200 ml Intake Oral 1200 ml Output Urine Total 0 ml # Bowel Movements 1 PHYSICAL EXAM Physical Exam GGEN: NAD HEEN OM moist, On O2 NC NECK: supple CVS: S1S2 RESP: Non labored GI: Soft, NT : No CVA tenderness, No Suprapubic Tenderness NEURO Ax3, grossly normal SKIN No Rash EXT mild LE edema DIAGNOSIS/ASSESSMENT Assessment & Plan ESRD- on HD TTS since July 2019 BUN significantly elevated, likely due to steroids Dialysis today as ordered, Parvez Dixon HyperKalemia- Dialysis today Ac Resp Failure- stable , Cxr 1/2 - . Stable moderate right pleural effusion tracking within the pleural fissures.2. Stable diffuse mixed interstitial and alveolar infiltrate with suspected partial right lower lobe consolidation. CoVID 19 diagnosed recently- Remdesivir, Decadron . CTA negative for PE COMMENT/RELEVANT DATA Meds Current Medications Medications (Trade) Dose Ordered Sig/Joshua Start Time Stop Time Status Last Admin Dose Admin Albumin Human 200 ml @ 200 mls/hr 1X PRN PRN 04/30/20 14:00 04/30/20 19:59 DC Apixaban (Eliquis) 5 mg BID 04/24/20 21:00 05/02/20 09:40 5 MG Aspirin (Ecotrin) 81 mg DAILYWBKFT 04/23/20 08:00 05/02/20 09:36 81 MG Atorvastatin Calcium (Lipitor) 40 mg QHS 04/22/20 21:00 05/01/20 21:34 40 MG Azithromycin 250 ml @ 250 mls/hr 1X ONCE 04/22/20 11:00 04/22/20 11:59 DC 04/22/20 17:05 250 MLS/HR Azithromycin 250 mg/Sodium Chloride 250 ml @ 250 mls/hr Q24H 04/23/20 17:00 04/26/20 17:00 DC 04/26/20 21:46 250 MLS/HR Aztreonam (Azactam) 2 gm 1X ONCE 04/22/20 10:45 04/22/20 10:53 DC Cefepime HCl (Maxipime) 1 gm Q24H 04/23/20 09:00 04/28/20 11:10 DC 04/28/20 08:12 1 GM Darbepoetin Aman (ARANESP for DIALYSIS PTS) 100 mcg WEEKLYHS 04/30/20 21:00 04/30/20 21:13 100 MCG Dexamethasone (Decadron) 4 mg DAILYWBKFT 05/01/20 08:00 05/02/20 09:36 4 MG Dexamethasone Sodium Phosphate (Decadron) 10 mg 1X ONCE 04/22/20 17:30 04/22/20 17:31 DC 04/22/20 17:34 10 MG Dextrose (Dextrose 50%-Water Syringe) 12.5 gm PRN Q15MIN PRN 04/22/20 17:15 Digoxin (Lanoxin) 500 mcg 1X ONCE 04/25/20 13:45 04/25/20 13:53 DC 04/25/20 14:23 500 MCG Diltiazem HCl (Cardizem Iv Push) 20 mg 1X ONCE 04/22/20 08:30 04/22/20 08:33 DC 04/22/20 09:21 20 MG Diltiazem HCl 125 mg/Sodium Chloride 125 ml @ 5 mls/hr CONT PRN 04/22/20 08:45 04/23/20 15:41 DC 04/23/20 01:56 15 MLS/HR Dopamine HCl/ Dextrose 250 ml @ As Directed STK-MED ONCE 04/24/20 11:47 04/24/20 11:47 DC Doxycycline Hyclate (Vibra-Tab) 100 mg BID 04/28/20 12:00 05/02/20 09:36 100 MG Enoxaparin Sodium (Lovenox 40mg Syringe) 40 mg Q24H 04/22/20 17:15 UNV Enoxaparin Sodium (Lovenox Per Pharmacy Treatment Dosing) 1 each PRN DAILY PRN 04/22/20 17:30 UNV Furosemide (Lasix) 60 mg 1X ONCE 04/22/20 08:45 04/22/20 08:46 DC 04/22/20 09:25 60 MG Gabapentin (Neurontin) 100 mg TID 04/25/20 10:00 05/02/20 09:39 100 MG Guaifenesin/ Codeine Phosphate (Robitussin Ac) 10 ml PRN Q6HRS PRN 04/22/20 08:45 04/29/20 13:30 10 ML Heparin Sodium (Porcine) (Heparin Sodium) 1,600 unit PRN Q6HRS PRN 04/23/20 11:00 04/24/20 13:33 DC 04/24/20 02:18 1,600 UNIT Heparin Sodium/ Dextrose 250 ml @ 20 mls/hr CONT PRN 04/23/20 11:00 04/24/20 13:33 DC 04/23/20 23:59 16.976 MLS/HR Info (Anti-Coagulation Monitoring By Pharmacy) 1 each PRN DAILY PRN 04/26/20 08:30 04/30/20 08:01 1 EACH Info (CONTRAST GIVEN -- Rx MONITORING) 1 each PRN DAILY PRN 04/24/20 10:30 04/26/20 10:29 DC Info (PHARMACY MONITORING -- do not chart) 1 each PRN DAILY PRN 04/30/20 14:00 Insulin Glargine (Lantus Syringe) 10 unit QHS 04/29/20 21:00 05/01/20 21:35 10 UNIT Insulin Human Lispro (HumaLOG) 0-7 UNITS TIDWMEALS 04/22/20 18:00 05/02/20 09:41 3 UNITS Iohexol (Omnipaque 350 Mg/ml) 100 ml 1X ONCE 04/24/20 10:30 04/24/20 10:31 DC 04/24/20 10:54 100 ML Isosorbide Mononitrate (Imdur) 60 mg DAILY 04/23/20 09:00 04/25/20 13:50 DC 04/25/20 12:26 60 MG Labetalol HCl (Trandate) 200 mg BID 04/22/20 21:00 04/25/20 10:30 DC 04/24/20 08:57 200 MG Lactobacillus Rhamnosus (Culturelle) 1 cap BID 04/23/20 21:00 05/02/20 09:36 1 CAP Losartan Potassium (Cozaar) 100 mg DAILY 04/23/20 09:00 04/25/20 13:50 DC 04/24/20 08:55 100 MG Magnesium Sulfate 50 ml @ 25 mls/hr PRN DAILY PRN 04/26/20 11:00 Metoprolol Tartrate (Lopressor) 50 mg BID 04/28/20 21:00 05/02/20 09:36 50 MG Metronidazole 100 ml @ 100 mls/hr 1X ONCE 04/22/20 10:45 04/22/20 10:53 DC Morphine Sulfate (Morphine Sulfate) 2 mg PRN Q2HR PRN 04/22/20 11:30 04/23/20 11:29 DC 04/22/20 22:03 2 MG Nitroglycerin (Nitro-Bid Oint) 1.5 inch 1X ONCE 04/22/20 08:30 04/22/20 08:33 DC 04/22/20 09:35 1 INCH Nitroglycerin/ Dextrose 250 ml @ 0 mls/hr 1X ONCE 04/22/20 08:30 04/22/20 08:39 DC Norepinephrine Bitartrate 8 mg/ Dextrose 258 ml @ 20.705 mls/ hr CONT PRN 04/24/20 13:30 04/25/20 15:43 DC Ondansetron HCl (Zofran) 8 mg STK-MED ONCE 04/23/20 18:00 04/24/20 08:20 DC Prochlorperazine Edisylate (Compazine) 5 mg PRN Q6HRS PRN 04/24/20 14:45 04/30/20 06:03 5 MG Remdesivir 100 mg/ Sodium Chloride 230 ml @ 460 mls/hr Q24H 04/24/20 11:00 04/27/20 11:29 DC 04/27/20 13:07 460 MLS/HR Remdesivir 200 mg/ Sodium Chloride 210 ml @ 210 mls/hr 1X ONCE 04/23/20 11:00 04/23/20 11:59 DC 04/23/20 14:03 210 MLS/HR Sevelamer Carbonate (Renvela) 2,400 mg TIDWMEALS 04/26/20 11:00 05/02/20 09:36 2,400 MG Sodium Bicarbonate (Sodium Bicarbonate) 650 mg TID 04/22/20 21:00 04/28/20 14:51 DC 04/28/20 14:02 650 MG Sodium Chloride 1,000 ml @ 400 mls/hr Q2H30M PRN 04/30/20 14:00 05/01/20 01:59 DC Vancomycin HCl (Vanco Per Pharmacy) 1 each PRN DAILY PRN 04/23/20 17:00 04/28/20 11:12 DC 04/26/20 08:31 1 EACH Vancomycin HCl (Vancomycin Random Level) 1 each 1X ONCE 04/23/20 06:00 04/23/20 06:01 DC 04/23/20 06:00 1 EACH Vancomycin HCl 500 mg/Sodium Chloride 100 ml @ 100 mls/hr QTUTHSA 04/23/20 16:00 04/28/20 11:10 DC 04/27/20 14:49 100 MLS/HR Vancomycin HCl 2 gm/Sodium Chloride 500 ml @ 250 mls/hr 1X ONCE 04/22/20 11:00 04/22/20 12:59 DC 04/22/20 12:35 250 MLS/HR Vitamin B Complex/ Vitamin C (Amaya-Shabana) 1 tab DAILY 04/23/20 09:00 05/02/20 09:36 1 TAB Lab Laboratory Tests Test 05/01/20 11:50 05/01/20 16:37 05/01/20 20:31 05/02/20 07:53 Glucose (Fingerstick) 179 mg/dL (70-99) 171 mg/dL (70-99) 164 mg/dL (70-99) White Blood Count 13.8 x10^3/uL (4.0-11.0) Red Blood Count 3.96 x10^6/uL (3.50-5.40) Hemoglobin 11.4 g/dL (12.0-15.5) Hematocrit 35.7 % (36.0-47.0) Mean Corpuscular Volume 90 fL (79-100) Mean Corpuscular Hemoglobin 29 pg (25-35) Mean Corpuscular Hemoglobin Concent 32 g/dL (31-37) Red Cell Distribution Width 18.8 % (11.5-14.5) Platelet Count 106 x10^3/uL (140-400) Neutrophils (%) (Auto) 90 % (31-73) Lymphocytes (%) (Auto) 6 % (24-48) Monocytes (%) (Auto) 4 % (0-9) Eosinophils (%) (Auto) 0 % (0-3) Basophils (%) (Auto) 0 % (0-3) Neutrophils # (Auto) 12.4 x10^3/uL (1.8-7.7) Lymphocytes # (Auto) 0.8 x10^3/uL (1.0-4.8) Monocytes # (Auto) 0.6 x10^3/uL (0.0-1.1) Eosinophils # (Auto) 0.0 x10^3/uL (0.0-0.7) Basophils # (Auto) 0.0 x10^3/uL (0.0-0.2) Sodium Level 131 mmol/L (136-145) Potassium Level 5.9 mmol/L (3.5-5.1) Chloride Level 92 mmol/L (98-107) Carbon Dioxide Level 26 mmol/L (21-32) Anion Gap 13 (6-14) Blood Urea Nitrogen 126 mg/dL (7-20) Creatinine 7.0 mg/dL (0.6-1.0) Estimated GFR (Cockcroft-Gault) 6.1 Glucose Level 159 mg/dL (70-99) Calcium Level 9.4 mg/dL (8.5-10.1) Phosphorus Level 9.4 mg/dL (2.6-4.7) Albumin 3.0 g/dL (3.4-5.0) Test 05/02/20 08:42 Glucose (Fingerstick) 165 mg/dL (70-99) Results All relevant outside records, renal labs, imaging studies, telemetry/EKG's were reviewed. Justicifation of Admission Dx: Justifications for Admission: Justification of Admission Dx: Yes HIMANSHU MCGOVERN MD May 02, 2020 10:52
[2020-05-02 11:00] VITALS: BP 116/65
[2020-05-02 11:34] LABS: % BANDS 1 % (0-9); % LYMPHS 9 % (24-48); % SEGS 90 % (35-66); PLT ESTIMATE DECREASED (ADEQUATE)
[2020-05-02 11:35] LABS: ANISOCYTOSIS SLIGHT; OVALOCYTES OCC; POLYCHROMASIA SLIGHT; TEAR DROP CELLS OCC
[2020-05-02] MEDS: ANTI-COAG MONITOR BY PHARMACY. MC PRN (12:45)
[2020-05-02] MEDS ORDERED: DIALYSIS PATIENT. MC PRN ×2 (13:00)
[2020-05-02] MEDS ORDERED: ALBUMIN HUMAN 25% 200 ML IV PRN (13:00)
[2020-05-02] MEDS ORDERED: IV NORMAL SALINE 1000ML BAG 1,000 ML IV PRN ×2 (13:00)
--- NOTE | 2020-05-02 15:02 | NUR ---
SS following up with discharge planning. SS reviewed pt chart and discussed with pt RN. Pt is currently requiring oxygen at four liters nasal canula. COVID19 positive. Pt accepted at [facility], ; fax [phone]. COVID19 positive. SS currently awaiting bed availability. SS discussed with Rocio at [facility] and was notified that pt is considered complex pt due to isolation needs and dialysis and they have to ensure they have room to accommodate pt and staffing available. SS will continue to follow for discharge planning.
--- NOTE | 2020-05-02 15:53 | NUR ---
pt left for dialysis at approx 1330. pt had covid swab done this shift prior to dialysis.
[2020-05-02 19:31] VITALS: BP 128/73
[2020-05-02] MEDS: ATORVASTATIN CALCIUM 40 MG TABLET. PO SCH (21:11)
[2020-05-02] MEDS: INSULIN GLARGINE SYRINGE. SQ SCH (21:12)
[2020-05-02 22:36] VITALS: BP 120/69
[2020-05-03 02:59] VITALS: BP 122/69
[2020-05-03 07:00] VITALS: BP 146/83
[2020-05-03 08:19] LABS: ALBUMIN 2.7 g/dL (3.4-5.0); CALCIUM 8.8 mg/dL (8.5-10.1); CREATININE 6.2 mg/dL (0.6-1.0); PHOSPHORUS 8.6 mg/dL (2.6-4.7)
[2020-05-03] MEDS: ASPIRIN ENTERIC COATED 81 MG TABLET.DR. PO SCH (08:53)
[2020-05-03] MEDS: DOXYCYCLINE HYCLATE 100 MG TABLET PO SCH (08:53)
[2020-05-03] MEDS: FOLIC/VIT B COMP W-C (RENAL) TABLET. PO SCH (08:53)
[2020-05-03] MEDS: SEVELAMER CARBONATE 800 MG TABLET. PO SCH ×2 (08:54→13:29)
[2020-05-03] MEDS: APIXABAN 5 MG TABLET. PO SCH (08:54)
[2020-05-03] MEDS: GABAPENTIN 100 MG CAPSULE. PO SCH ×2 (08:54→14:31)
[2020-05-03] MEDS: LACTOBACILLUS RHAMNOSUS GG 1 CAPSULE. PO SCH (08:54)
--- NOTE | 2020-05-03 08:54 | PDOC ---
PULMONARY PROGRESS NOTES DATE: 05/03/20 TIME: 08:51 Subjective On 4 liters N/C,improvement in oxygenation No SOA or increased cough No other concerns overnight from nursing Vitals Vital Signs Date Time Temp Pulse Resp B/P (MAP) Pulse Ox O2 Delivery O2 Flow Rate FiO2 05/03/20 07:00 96.5 99 18 146/83 (104) 96 Nasal Cannula 4.0 96.5 ROS: No Nausea, No Chest Pain, No Abdominal Pain, No Increase Cough General: Alert Lungs: Clear Cardiovascular: S1, S2 Abdomen: Soft Neuro Exam: Alert Extremities: Other (BLE +1 ) Skin: Warm Labs Laboratory Tests Test 05/01/20 11:50 05/01/20 16:37 05/01/20 20:31 05/02/20 07:53 Glucose (Fingerstick) 179 mg/dL (70-99) 171 mg/dL (70-99) 164 mg/dL (70-99) White Blood Count 13.8 x10^3/uL (4.0-11.0) Red Blood Count 3.96 x10^6/uL (3.50-5.40) Hemoglobin 11.4 g/dL (12.0-15.5) Hematocrit 35.7 % (36.0-47.0) Mean Corpuscular Volume 90 fL (79-100) Mean Corpuscular Hemoglobin 29 pg (25-35) Mean Corpuscular Hemoglobin Concent 32 g/dL (31-37) Red Cell Distribution Width 18.8 % (11.5-14.5) Platelet Count 106 x10^3/uL (140-400) Neutrophils (%) (Auto) 90 % (31-73) Lymphocytes (%) (Auto) 6 % (24-48) Monocytes (%) (Auto) 4 % (0-9) Eosinophils (%) (Auto) 0 % (0-3) Basophils (%) (Auto) 0 % (0-3) Neutrophils # (Auto) 12.4 x10^3/uL (1.8-7.7) Lymphocytes # (Auto) 0.8 x10^3/uL (1.0-4.8) Monocytes # (Auto) 0.6 x10^3/uL (0.0-1.1) Eosinophils # (Auto) 0.0 x10^3/uL (0.0-0.7) Basophils # (Auto) 0.0 x10^3/uL (0.0-0.2) Segmented Neutrophils % 90 % (35-66) Band Neutrophils % 1 % (0-9) Lymphocytes % 9 % (24-48) Platelet Estimate Decreased (ADEQUATE) Polychromasia Slight Anisocytosis Slight Tear Drop Cells Occ Ovalocytes Occ Sodium Level 131 mmol/L (136-145) Potassium Level 5.9 mmol/L (3.5-5.1) Chloride Level 92 mmol/L (98-107) Carbon Dioxide Level 26 mmol/L (21-32) Anion Gap 13 (6-14) Blood Urea Nitrogen 126 mg/dL (7-20) Creatinine 7.0 mg/dL (0.6-1.0) Estimated GFR (Cockcroft-Gault) 6.1 Glucose Level 159 mg/dL (70-99) Calcium Level 9.4 mg/dL (8.5-10.1) Phosphorus Level 9.4 mg/dL (2.6-4.7) Albumin 3.0 g/dL (3.4-5.0) Test 05/02/20 08:42 05/02/20 11:39 05/02/20 12:08 05/02/20 17:53 Glucose (Fingerstick) 165 mg/dL (70-99) 135 mg/dL (70-99) 232 mg/dL (70-99) Coronavirus (PCR) Detected (Not Detected) SARS-CoV-2 Antigen (Rapid) Negative (NEGATIVE) Test 05/02/20 21:04 05/03/20 06:05 05/03/20 07:51 Glucose (Fingerstick) 220 mg/dL (70-99) 268 mg/dL (70-99) Sodium Level 133 mmol/L (136-145) Potassium Level 6.0 mmol/L (3.5-5.1) Chloride Level 95 mmol/L (98-107) Carbon Dioxide Level 25 mmol/L (21-32) Anion Gap 13 (6-14) Blood Urea Nitrogen 105 mg/dL (7-20) Creatinine 6.2 mg/dL (0.6-1.0) Estimated GFR (Cockcroft-Gault) 7.0 Glucose Level 236 mg/dL (70-99) Calcium Level 8.8 mg/dL (8.5-10.1) Phosphorus Level 8.6 mg/dL (2.6-4.7) Albumin 2.7 g/dL (3.4-5.0) Laboratory Tests Test 05/02/20 11:39 05/02/20 12:08 05/02/20 17:53 05/02/20 21:04 Coronavirus (PCR) Detected (Not Detected) SARS-CoV-2 Antigen (Rapid) Negative (NEGATIVE) Glucose (Fingerstick) 135 mg/dL (70-99) 232 mg/dL (70-99) 220 mg/dL (70-99) Test 05/03/20 06:05 05/03/20 07:51 Sodium Level 133 mmol/L (136-145) Potassium Level 6.0 mmol/L (3.5-5.1) Chloride Level 95 mmol/L (98-107) Carbon Dioxide Level 25 mmol/L (21-32) Anion Gap 13 (6-14) Blood Urea Nitrogen 105 mg/dL (7-20) Creatinine 6.2 mg/dL (0.6-1.0) Estimated GFR (Cockcroft-Gault) 7.0 Glucose Level 236 mg/dL (70-99) Calcium Level 8.8 mg/dL (8.5-10.1) Phosphorus Level 8.6 mg/dL (2.6-4.7) Albumin 2.7 g/dL (3.4-5.0) Glucose (Fingerstick) 268 mg/dL (70-99) Medications Active Scripts Medications Dose Route/Sig Max Daily Dose Days Date Category Soliqua 100 Unit-33 Mcg/ml Pen (Insulin Glargine/Lixisenatide) 3 Ml Insuln.pen 3 Ml SQ PRN PRN 02/14/20 Reported Lidocaine-Prilocaine Cream (Lidocaine/Prilocaine) 30 Gm Cream..g. 30 Gm TP PRN PRN 02/14/20 Reported Nephro-Shabana Tablet (Folic Acid/Vitamin B Comp W-C) 0.8 Mg Tablet 1 Tab PO DAILY 02/14/20 Reported Sodium Bicarbonate 650 Mg Tablet 650 Mg PO TID 30 08/09/19 Rx Renvela (Sevelamer Carbonate) 800 Mg Tablet 800 Mg PO TIDWMEALS 30 08/09/19 Rx Aspirin Ec (Aspirin) 81 Mg Tablet. 81 Mg PO DAILYWBKFT 30 08/09/19 Rx Cozaar (Losartan Potassium) 50 Mg Tablet 100 Mg PO DAILY 30 08/09/19 Rx Labetalol Hcl 200 Mg Tablet 200 Mg PO BID 30 08/09/19 Rx Atorvastatin Calcium 40 Mg Tablet 1 Tab PO QHS 03/05/19 Reported Isosorbide Mononitrate Er (Isosorbide Mononitrate) 60 Mg Tab.er.24h 1 Tab PO DAILY 03/12/17 Reported Comments CXR 04/26/20 IMPRESSION: 1. Progression of bilateral perihilar and basilar opacities. 2. Moderate right pleural effusion. CTA chest IMPRESSION: 1. No evidence of pulmonary thromboembolic disease. 2. Diffuse bilateral groundglass opacities, likely multifocal infection or edema. 3. Large right pleural effusion with relaxation atelectasis of much of the right lower lobe. 4. Extensive coronary artery atherosclerotic disease. Impression . IMPRESSION: 1. Acute hypoxemic respiratory failure secondary to COVID-19 viral pneumonia. 2. COVID-19 viral pneumonia. 3. Possible bacterial pneumonia. 4. CTA neg for PE 5. Bilateral pulmonary infiltrates compatible with viral pneumonia, possible bacterial pneumonia. 6. Renal failure. 7. Diabetes. 8. Hypertension. Plan . PLAN: Continue current supplemental oxygen, now on 5 liters N/C tolerating well, wean oxygen as tolerated continue eliquis Completed Full course of remdesivir, completed full course of steroids Continue empiric antibiotics per ID PT. is no longer infectious 2/2 COVID-19 in the recovery phase, does not require isolation Follow nephrology recommendations in regards to hemodialysis Follow cardiology recommendations Physical therapy/Occupational Therapy DVT/GI prophylaxis Discussed with RN Planned to discharge to [facility] to D/C from our standpoint we will sign off please call with any questions or concerns WINTER JOY MD May 03, 2020 08:54
[2020-05-03] MEDS: METOPROLOL TART IMMED RELEASE 50 MG TABLET. PO SCH (08:55)
[2020-05-03] MEDS: INSULIN LISPRO 300 UNITS/3 ML VIAL. SQ SCH ×2 (09:01→13:40)
--- NOTE | 2020-05-03 09:09 | PDOC ---
PROGRESS NOTES Date of Service: DATE: 05/03/20 TIME: 09:06 Subjective Subjective feels good Objective Objective Vital Signs Date Time Temp Pulse Resp B/P (MAP) Pulse Ox O2 Delivery O2 Flow Rate FiO2 05/03/20 08:55 99 146/83 05/03/20 07:00 96.5 18 96 Nasal Cannula 4.0 96.5 Intake and Output 05/03/20 07:00 Output Total 0 ml Balance 0 ml Output Urine Total 0 ml Physical Exam Abdomen: Soft Heart: Normal S2, Other (AFIB ) Extremities: Normal pulses, Other (trace bilateral LE edema ) General: Alert, Oriented X3, Cooperative, mild distress HEENT: Atraumatic, Mucous membr. moist/pink Lungs: Other (on BIPAP) MUSCULOSKELETAL: Osteoarthritic changes both hands Neuro: Normal speech, Sensation intact Psych/Mental Status: Mental status NL Skin: No significant lesion Diagnosis Problem List Problems Medical Problems: (1) Acute pulmonary edema Status: Acute (2) Acute respiratory failure with hypoxia Status: Acute (3) Atrial fibrillation with RVR Status: Acute (4) COVID-19 Status: Acute (5) NSTEMI (non-ST elevated myocardial infarction) Status: Acute (6) Septic shock Status: Acute Assessment Assessment Problems Medical Problems: (1) Acute pulmonary edema Status: Acute (2) Acute respiratory failure with hypoxia Status: Acute (3) Atrial fibrillation with RVR Status: Acute (4) COVID-19 Status: Acute (5) NSTEMI (non-ST elevated myocardial infarction) Status: Acute (6) Septic shock Status: Acute FINAL IMPRESSION: 1. Shortness of breath, combination of heart failure as well as Covid pneumonia. 2. Recent COVID infection. 3. Coronary artery disease. She has a distal LAD disease, had a cardiac catheterization 07/2019. 4. End-stage renal disease, on hemodialysis. 5. Insulin-dependent diabetes. 6. Diastolic heart failure. 7. Hyperlipidemia. PLAN:Pt was treated for covid ,pt is not infectious now at least 20 days have passed since symptoms first appeared no fever and no sob or cough ,covid test positive due to virus in nose dialysis last night JUN today,hopefully they have bed today wbc 13 , cr 7,5,pot 5.9 cxr rt pleural effusion. 4 L oxygen SNU screen . on Eliquis po bid for a fib CTA -neg for PE completed remdisivr . DIalysis sat po dexamethasome completed IV antibiotics. zithromax+vanco+cefepime slight nicanor troponin demand ischemia spoke with Pulmonary+cardiology add gabapentin for leg pain for neuropathy Plan Plan of Care Problems Medical Problems: (1) Acute pulmonary edema Status: Acute (2) Acute respiratory failure with hypoxia Status: Acute (3) Atrial fibrillation with RVR Status: Acute (4) COVID-19 Status: Acute (5) NSTEMI (non-ST elevated myocardial infarction) Status: Acute (6) Septic shock Status: Acute Comment Review of Relevant I have reviewed the following items allen (where applicable) has been applied. Labs Laboratory Tests Test 05/02/20 11:39 05/02/20 12:08 05/02/20 17:53 05/02/20 21:04 Coronavirus (PCR) Detected (Not Detected) SARS-CoV-2 Antigen (Rapid) Negative (NEGATIVE) Glucose (Fingerstick) 135 mg/dL (70-99) 232 mg/dL (70-99) 220 mg/dL (70-99) Test 05/03/20 06:05 05/03/20 07:51 Sodium Level 133 mmol/L (136-145) Potassium Level 6.0 mmol/L (3.5-5.1) Chloride Level 95 mmol/L (98-107) Carbon Dioxide Level 25 mmol/L (21-32) Anion Gap 13 (6-14) Blood Urea Nitrogen 105 mg/dL (7-20) Creatinine 6.2 mg/dL (0.6-1.0) Estimated GFR (Cockcroft-Gault) 7.0 Glucose Level 236 mg/dL (70-99) Calcium Level 8.8 mg/dL (8.5-10.1) Phosphorus Level 8.6 mg/dL (2.6-4.7) Albumin 2.7 g/dL (3.4-5.0) Glucose (Fingerstick) 268 mg/dL (70-99) Microbiology 04/22/20 Blood Culture - Final, Complete NO GROWTH AFTER 5 DAYS Medications Current Medications Albumin Human 200 ml @ 200 mls/hr 1X PRN PRN IV Hypotension; Start 05/02/20 at 13:00; Stop 05/02/20 at 18:59; Status DC Info (PHARMACY MONITORING -- do not chart) 1 each PRN DAILY PRN MC SEE COMMENTS; Start 05/02/20 at 13:00 Info (PHARMACY MONITORING -- do not chart) 1 each PRN DAILY PRN MC SEE COMMENTS; Start 05/02/20 at 13:00 Sodium Chloride 1,000 ml @ 400 mls/hr Q2H30M PRN IV PATENCY; Start 05/02/20 at 13:00; Stop 05/03/20 at 00:59; Status DC Sodium Chloride 1,000 ml @ 1,000 mls/hr Q1H PRN IV hypotension; Start 05/02/20 at 13:00; Stop 05/02/20 at 18:59; Status DC Vitals/I & O Vital Sign - Last 24 Hours 05/02/20 05/02/20 05/02/20 05/02/20 09:36 11:00 19:31 20:00 Temp 97.5 98.8 97.5 98.8 Pulse 96 82 88 Resp 16 16 B/P (MAP) 153/81 116/65 (82) 128/73 (91) Pulse Ox 90 92 O2 Delivery Nasal Cannula Nasal Cannula Nasal Cannula O2 Flow Rate 4.0 4.0 4.0 05/02/20 05/02/20 05/03/20 05/03/20 21:11 22:36 02:59 07:00 Temp 98.1 97.6 96.5 98.1 97.6 96.5 Pulse 88 89 89 99 Resp 16 16 18 B/P (MAP) 128/73 120/69 (86) 122/69 (86) 146/83 (104) Pulse Ox 93 93 96 O2 Delivery Nasal Cannula Nasal Cannula Nasal Cannula O2 Flow Rate 4.0 4.0 4.0 05/03/20 08:55 Pulse 99 B/P (MAP) 146/83 Intake and Output 05/02/20 05/02/20 05/03/20 15:00 23:00 07:00 Output Total 0 ml 0 ml Balance 0 ml 0 ml Justifications for Admission Other Justification YARELIS FONTENOT MD May 03, 2020 09:09
[2020-05-03 11:00] VITALS: BP 137/69
--- NOTE | 2020-05-03 11:38 | PDOC ---
DATE OF SERVICE DATE: 05/03/20 TIME: 11:36 SUBJECTIVE ROS stable, off isolation , no complaints OBJECTIVE Vital Signs Vital Signs Date Time Temp Pulse Resp B/P (MAP) Pulse Ox O2 Delivery O2 Flow Rate FiO2 05/03/20 11:00 98.1 114 16 137/69 (91) 98 4.0 98.1 05/03/20 08:00 Nasal Cannula I & 0 Intake and Output 05/03/20 07:00 Output Total 0 ml Balance 0 ml Output Urine Total 0 ml PHYSICAL EXAM Physical Exam GGEN: NAD HEEN OM moist, On O2 NC NECK: supple CVS: S1S2 RESP: Non labored GI: Soft, NT : No CVA tenderness, No Suprapubic Tenderness NEURO Ax3, grossly normal SKIN No Rash EXT mild LE edema DIAGNOSIS/ASSESSMENT Assessment & Plan ESRD- on HD TTS since July 2019 BUN significantly elevated, likely due to steroids . Currently no emergent indication for HD HyperKalemia- chronic, Low K diet , Ac Resp Failure- stable , Cxr 1/2 - . Stable moderate right pleural effusion tracking within the pleural fissures.2. Stable diffuse mixed interstitial and alveolar infiltrate with suspected partial right lower lobe consolidation. CoVID 19 diagnosed recently- Remdesivir, Decadron . CTA negative for PE COMMENT/RELEVANT DATA Meds Current Medications Medications (Trade) Dose Ordered Sig/Joshua Start Time Stop Time Status Last Admin Dose Admin Albumin Human 200 ml @ 200 mls/hr 1X PRN PRN 05/02/20 13:00 05/02/20 18:59 DC Apixaban (Eliquis) 5 mg BID 04/24/20 21:00 05/03/20 08:54 5 MG Aspirin (Ecotrin) 81 mg DAILYWBKFT 04/23/20 08:00 05/03/20 08:53 81 MG Atorvastatin Calcium (Lipitor) 40 mg QHS 04/22/20 21:00 05/02/20 21:11 40 MG Azithromycin 250 ml @ 250 mls/hr 1X ONCE 04/22/20 11:00 04/22/20 11:59 DC 04/22/20 17:05 250 MLS/HR Azithromycin 250 mg/Sodium Chloride 250 ml @ 250 mls/hr Q24H 04/23/20 17:00 04/26/20 17:00 DC 04/26/20 21:46 250 MLS/HR Aztreonam (Azactam) 2 gm 1X ONCE 04/22/20 10:45 04/22/20 10:53 DC Cefepime HCl (Maxipime) 1 gm Q24H 04/23/20 09:00 04/28/20 11:10 DC 04/28/20 08:12 1 GM Darbepoetin Aman (ARANESP for DIALYSIS PTS) 100 mcg WEEKLYHS 04/30/20 21:00 04/30/20 21:13 100 MCG Dexamethasone (Decadron) 4 mg DAILYWBKFT 05/01/20 08:00 05/03/20 08:54 DC 05/02/20 09:36 4 MG Dexamethasone Sodium Phosphate (Decadron) 10 mg 1X ONCE 04/22/20 17:30 04/22/20 17:31 DC 04/22/20 17:34 10 MG Dextrose (Dextrose 50%-Water Syringe) 12.5 gm PRN Q15MIN PRN 04/22/20 17:15 Digoxin (Lanoxin) 500 mcg 1X ONCE 04/25/20 13:45 04/25/20 13:53 DC 04/25/20 14:23 500 MCG Diltiazem HCl (Cardizem Iv Push) 20 mg 1X ONCE 04/22/20 08:30 04/22/20 08:33 DC 04/22/20 09:21 20 MG Diltiazem HCl 125 mg/Sodium Chloride 125 ml @ 5 mls/hr CONT PRN 04/22/20 08:45 04/23/20 15:41 DC 04/23/20 01:56 15 MLS/HR Dopamine HCl/ Dextrose 250 ml @ As Directed STK-MED ONCE 04/24/20 11:47 04/24/20 11:47 DC Doxycycline Hyclate (Vibra-Tab) 100 mg BID 04/28/20 12:00 05/03/20 08:53 100 MG Enoxaparin Sodium (Lovenox 40mg Syringe) 40 mg Q24H 04/22/20 17:15 UNV Enoxaparin Sodium (Lovenox Per Pharmacy Treatment Dosing) 1 each PRN DAILY PRN 04/22/20 17:30 UNV Furosemide (Lasix) 60 mg 1X ONCE 04/22/20 08:45 04/22/20 08:46 DC 04/22/20 09:25 60 MG Gabapentin (Neurontin) 100 mg TID 04/25/20 10:00 05/03/20 08:54 100 MG Guaifenesin/ Codeine Phosphate (Robitussin Ac) 10 ml PRN Q6HRS PRN 04/22/20 08:45 04/29/20 13:30 10 ML Heparin Sodium (Porcine) (Heparin Sodium) 1,600 unit PRN Q6HRS PRN 04/23/20 11:00 04/24/20 13:33 DC 04/24/20 02:18 1,600 UNIT Heparin Sodium/ Dextrose 250 ml @ 20 mls/hr CONT PRN 04/23/20 11:00 04/24/20 13:33 DC 04/23/20 23:59 16.976 MLS/HR Info (Anti-Coagulation Monitoring By Pharmacy) 1 each PRN DAILY PRN 04/26/20 08:30 05/02/20 12:45 1 EACH Info (CONTRAST GIVEN -- Rx MONITORING) 1 each PRN DAILY PRN 04/24/20 10:30 04/26/20 10:29 DC Info (PHARMACY MONITORING -- do not chart) 1 each PRN DAILY PRN 05/02/20 13:00 Insulin Glargine (Lantus Syringe) 10 unit QHS 04/29/20 21:00 05/02/20 21:12 10 UNIT Insulin Human Lispro (HumaLOG) 0-7 UNITS TIDWMEALS 04/22/20 18:00 05/03/20 09:01 6 UNITS Iohexol (Omnipaque 350 Mg/ml) 100 ml 1X ONCE 04/24/20 10:30 04/24/20 10:31 DC 04/24/20 10:54 100 ML Isosorbide Mononitrate (Imdur) 60 mg DAILY 04/23/20 09:00 04/25/20 13:50 DC 04/25/20 12:26 60 MG Labetalol HCl (Trandate) 200 mg BID 04/22/20 21:00 04/25/20 10:30 DC 04/24/20 08:57 200 MG Lactobacillus Rhamnosus (Culturelle) 1 cap BID 04/23/20 21:00 05/03/20 08:54 1 CAP Losartan Potassium (Cozaar) 100 mg DAILY 04/23/20 09:00 04/25/20 13:50 DC 04/24/20 08:55 100 MG Magnesium Sulfate 50 ml @ 25 mls/hr PRN DAILY PRN 04/26/20 11:00 Metoprolol Tartrate (Lopressor) 50 mg BID 04/28/20 21:00 05/03/20 08:55 50 MG Metronidazole 100 ml @ 100 mls/hr 1X ONCE 04/22/20 10:45 04/22/20 10:53 DC Morphine Sulfate (Morphine Sulfate) 2 mg PRN Q2HR PRN 04/22/20 11:30 04/23/20 11:29 DC 04/22/20 22:03 2 MG Nitroglycerin (Nitro-Bid Oint) 1.5 inch 1X ONCE 04/22/20 08:30 04/22/20 08:33 DC 04/22/20 09:35 1 INCH Nitroglycerin/ Dextrose 250 ml @ 0 mls/hr 1X ONCE 04/22/20 08:30 04/22/20 08:39 DC Norepinephrine Bitartrate 8 mg/ Dextrose 258 ml @ 20.705 mls/ hr CONT PRN 04/24/20 13:30 04/25/20 15:43 DC Ondansetron HCl (Zofran) 8 mg STK-MED ONCE 04/23/20 18:00 04/24/20 08:20 DC Prochlorperazine Edisylate (Compazine) 5 mg PRN Q6HRS PRN 04/24/20 14:45 04/30/20 06:03 5 MG Remdesivir 100 mg/ Sodium Chloride 230 ml @ 460 mls/hr Q24H 04/24/20 11:00 04/27/20 11:29 DC 04/27/20 13:07 460 MLS/HR Remdesivir 200 mg/ Sodium Chloride 210 ml @ 210 mls/hr 1X ONCE 04/23/20 11:00 04/23/20 11:59 DC 04/23/20 14:03 210 MLS/HR Sevelamer Carbonate (Renvela) 2,400 mg TIDWMEALS 04/26/20 11:00 05/03/20 08:54 2,400 MG Sodium Bicarbonate (Sodium Bicarbonate) 650 mg TID 04/22/20 21:00 04/28/20 14:51 DC 04/28/20 14:02 650 MG Sodium Chloride 1,000 ml @ 400 mls/hr Q2H30M PRN 05/02/20 13:00 05/03/20 00:59 DC Vancomycin HCl (Vanco Per Pharmacy) 1 each PRN DAILY PRN 04/23/20 17:00 04/28/20 11:12 DC 04/26/20 08:31 1 EACH Vancomycin HCl (Vancomycin Random Level) 1 each 1X ONCE 04/23/20 06:00 04/23/20 06:01 DC 04/23/20 06:00 1 EACH Vancomycin HCl 500 mg/Sodium Chloride 100 ml @ 100 mls/hr QTUTHSA 04/23/20 16:00 04/28/20 11:10 DC 04/27/20 14:49 100 MLS/HR Vancomycin HCl 2 gm/Sodium Chloride 500 ml @ 250 mls/hr 1X ONCE 04/22/20 11:00 04/22/20 12:59 DC 04/22/20 12:35 250 MLS/HR Vitamin B Complex/ Vitamin C (Amaya-Shabana) 1 tab DAILY 04/23/20 09:00 05/03/20 08:53 1 TAB Lab Laboratory Tests Test 05/02/20 11:39 05/02/20 12:08 05/02/20 17:53 05/02/20 21:04 Coronavirus (PCR) Detected (Not Detected) SARS-CoV-2 Antigen (Rapid) Negative (NEGATIVE) Glucose (Fingerstick) 135 mg/dL (70-99) 232 mg/dL (70-99) 220 mg/dL (70-99) Test 05/03/20 06:05 05/03/20 07:51 05/03/20 11:25 Sodium Level 133 mmol/L (136-145) Potassium Level 6.0 mmol/L (3.5-5.1) Chloride Level 95 mmol/L (98-107) Carbon Dioxide Level 25 mmol/L (21-32) Anion Gap 13 (6-14) Blood Urea Nitrogen 105 mg/dL (7-20) Creatinine 6.2 mg/dL (0.6-1.0) Estimated GFR (Cockcroft-Gault) 7.0 Glucose Level 236 mg/dL (70-99) Calcium Level 8.8 mg/dL (8.5-10.1) Phosphorus Level 8.6 mg/dL (2.6-4.7) Albumin 2.7 g/dL (3.4-5.0) Glucose (Fingerstick) 268 mg/dL (70-99) 231 mg/dL (70-99) Results All relevant outside records, renal labs, imaging studies, telemetry/EKG's were reviewed. Justicifation of Admission Dx: Justifications for Admission: Justification of Admission Dx: Yes HIMANSHU MCGOVERN MD May 03, 2020 11:38
--- NOTE | 2020-05-03 13:33 | NUR ---
SS following up with discharge planning. SS reviewed pt chart and discussed with pt RN. Pt is currently on room air. Pt off of isolation now. COVID19 negative on rapid test now. [facility] stating that they do not have a bed for pt at this time due to pt's medical complexity and oxygen needs. Pt on four liters nasal canula. SS contacted [facility], ; fax [phone], and discussed. Pt accepted at [facility]. SS discussed with Dr. Colon and pt and both agreeable to pt going to [facility]. Discharge orders and clinical phoned and faxed to [facility]. Pt will discharge today and go to [facility] at 1600. [facility] to provide transportation. Pt and pt's RN notified. Pt stated that she has notified her family of discharge.
[2020-05-03 15:00] VITALS: BP 159/87
--- NOTE | 2020-05-03 15:11 | NUR ---
pt will discharge to [facility] at approx 1600 per social work. Report called to Nayeli at [facility] at approx [phone].
--- NOTE | 2020-05-05 11:11 | PDOC ---
Provider Note Date of Service: DATE: 05/05/20 TIME: 11:10 Provider Note Discharge summary dictated.#[id number]. Justifications for Admission Other Justification YARELIS FONTENOT MD May 05, 2020 11:11
--- NOTE | 2020-05-05 11:26 | DS ---
DATE OF DISCHARGE: 05/03/2020 CONSULTATIONS: Dr. Bowman, Dr. Yadav, Dr. Lazo, Cardiology. PROCEDURES DONE: Hemodialysis. HOSPITAL COURSE: The patient is a renal dialysis patient. CT angiogram of the chest and BiPAP. HOSPITAL COURSE: The patient is a 54-year-old female. The patient has end-stage renal disease, on hemodialysis. She also has a history of diabetes, hypertension, coronary artery disease, seen by Cardiology. Having shortness of breath, she was diagnosed with COVID mid March, and she did not want to go into the hospital. The patient was given dexamethasone and the patient was put on oxygen outpatient, but in the meantime the patient got progressively worse, more short of breath. The patient was admitted to the hospital. Chest x-ray shows bilateral lung infiltrates. The patient was needing oxygen by BiPAP and high dose of oxygen. The patient was seen by Pulmonology, was in the ICU. Chest x-ray, bilateral infiltrates. The patient was given IV dexamethasone, IV remdesivir. The patient was also started on hemodialysis. The patient is a dialysis patient, continued on hemodialysis. The patient also developed atrial fibrillation with RVR. The patient was given Eliquis for anticoagulation. The patient had a CT angiogram of the chest negative for pulmonary embolism. The patient was improved slowly, moved out of the ICU to cardiac floor and the patient is requiring anywhere from 6 to 8 liters of oxygen and because of her comorbidities, it was decided that she would need to go to halfway unit. Finally, the patient was discharged to [facility]. FINAL DIAGNOSES: 1. COVID pneumonia. 2. Respiratory failure, requiring BiPAP. 3. Atrial fibrillation with rapid ventricular response. The patient is on Eliquis. 4. End-stage renal disease, on hemodialysis. 5. Diabetes. 6. Possible sepsis. 7. Secondary infection secondary to aspiration pneumonia. 8. Hypertension. 9. Hyperlipidemia. 10. History of previous coronary artery disease. 11. Acute Diastolic heart failure. PLAN: At this time, the patient was discharged to rehab. Continue dialysis 3 times a week. Continue oxygen and see how she does. YARELIS FONTENOT MD DR: DAGOBERTO/jamel JOB#: [id number] / [id number]
== END 2020-05-03 16:54 | DRG 871 ==
LOC: ER 07:47 → 1 WEST ICU 11:55 → 2 SOUTH 04-25 17:17
PROVIDERS: ADMIT Internal Medicine; ATTEND Internal Medicine
PROC: 5A09357 Assistance with Respiratory Ventilation, Less than 24 Consecutive Hours, Continuous Positive Airway Pressure (ICD-10-PCS; principal; 2020-04-22)
PROC: XW033E5 Introduction of Remdesivir Anti-infective into Peripheral Vein, Percutaneous Approach, New Technology Group 5 (ICD-10-PCS; 2020-04-22)
PROC: 5A1D70Z Performance of Urinary Filtration, Intermittent, Less than 6 Hours Per Day (ICD-10-PCS; 2020-04-22)
PROC: 5A1D70Z Performance of Urinary Filtration, Intermittent, Less than 6 Hours Per Day (ICD-10-PCS; 2020-04-23)
PROC: 5A1D70Z Performance of Urinary Filtration, Intermittent, Less than 6 Hours Per Day (ICD-10-PCS; 2020-04-24)
PROC: 5A1D70Z Performance of Urinary Filtration, Intermittent, Less than 6 Hours Per Day (ICD-10-PCS; 2020-04-27)
PROC: 5A1D70Z Performance of Urinary Filtration, Intermittent, Less than 6 Hours Per Day (ICD-10-PCS; 2020-04-27)
PROC: 5A1D70Z Performance of Urinary Filtration, Intermittent, Less than 6 Hours Per Day (ICD-10-PCS; 2020-04-30)
PROC: 5A1D70Z Performance of Urinary Filtration, Intermittent, Less than 6 Hours Per Day (ICD-10-PCS; 2020-05-02)
DX: A41.89 Other specified sepsis (principal); U07.1 COVID-19; I50.33 Acute on chronic diastolic (congestive) heart failure; J96.01 Acute respiratory failure with hypoxia; N18.6 End stage renal disease; I21.4 Non-ST elevation (NSTEMI) myocardial infarction; J12.82 Pneumonia due to coronavirus disease 2019; R65.21 Severe sepsis with septic shock; I13.2 Hypertensive heart and chronic kidney disease with heart failure and with stage 5 chronic kidney disease, or end stage renal disease; J98.11 Atelectasis; N04.9 Nephrotic syndrome with unspecified morphologic changes; N17.9 Acute kidney failure, unspecified; Z88.0 Allergy status to penicillin; Z88.2 Allergy status to sulfonamides; D69.6 Thrombocytopenia, unspecified; E11.22 Type 2 diabetes mellitus with diabetic chronic kidney disease; E11.51 Type 2 diabetes mellitus with diabetic peripheral angiopathy without gangrene; E66.01 Morbid (severe) obesity due to excess calories; E78.00 Pure hypercholesterolemia, unspecified; E78.5 Hyperlipidemia, unspecified; I25.10 Atherosclerotic heart disease of native coronary artery without angina pectoris; I25.84 Coronary atherosclerosis due to calcified coronary lesion; I48.0 Paroxysmal atrial fibrillation; M19.90 Unspecified osteoarthritis, unspecified site; Z20.828 Contact with and (suspected) exposure to other viral communicable diseases; Z79.4 Long term (current) use of insulin; Z82.49 Family history of ischemic heart disease and other diseases of the circulatory system; Z83.3 Family history of diabetes mellitus; Z86.19 Personal history of other infectious and parasitic diseases; Z90.710 Acquired absence of both cervix and uterus; Z99.2 Dependence on renal dialysis; Z68.35 Body mass index [BMI] 35.0-35.9, adult
CPT/HCPCS: 36415; 36600; 71045; 71275; 80048; 80069; 80076; 80202; 82550; 82805; 82962; 83605; 83615; 83735; 83880; 84484; 84550; 85007; 85025; 85520; 85610; 85730; 87040; 87426; 87804; 93005; 94660; 94760; 96365; 96375; 99291; 99292; G0480; J0456; J0692; J0780; J0882; J1100; J1160; J1265; J1644; J1815; J1940; J2270; J2405; J3370; J3490; J7040; J7050; Q9967; U0003; 97530-GO; 97530-GP; 97535-GO; G0378; J7030